=== PATIENT | male | born 2005 | race Two or more races ===

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

== ENCOUNTER 2023-07-07 13:11 | Emergency (ER) | payer MEDICAID, SELFPAY ==
[2023-07-07] VITALS (38 sets, daily range): BP systolic 105–159; BP diastolic 56–87; PULSE 55; RESP 16–17; TEMP 36.6; O2SAT 93–100; BMI 24.0
--- NOTE | 2023-07-07 13:43 | ED.ABDPAIN1 ---
HPI - Abdominal Pain General Chief Complaint: Abdominal Pain Stated Complaint: ABDOMINAL PAIN Time Seen by Provider: 07/07/23 13:21 Source: patient and family Mode of arrival: walk-in History of Present Illness HPI narrative: 17-year-old male presents to the emergency department with father with complaint of abdominal pain. Onset this past Thursday. Father states onset after eating greasy pizza father states he has had problems with abdominal discomfort in the past. Recently, had [place] food with noodles that cause some discomfort. Has had associated nausea and vomiting. Denies any fevers, diarrhea, prior abdominal problems/surgeries. Quality:? hurts Severity:?moderate Timing:?As above, currently denies any abdominal pain Context: Normal setting and activity? Modifying factors:?None Associated symptoms: As above Related Data Home Medications Medication Instructions Recorded Confirmed cholecalciferol (vitamin D3) 25 50 mcg PO DAILY 12/02/22 12/02/22 mcg (1,000 unit) capsule diazepam 20 mg/2 spray (10 mg/0.1 20 mg intranasal DAILY PRN seizures 12/02/22 12/02/22 mL x 2) nasal spray (Valtoco) divalproex 500 mg tablet,delayed 1,000 mg PO Q12H 12/02/22 12/02/22 release multivitamin-iron 9 mg-folic acid 1 tab PO DAILY 12/02/22 12/02/22 400 mcg-calcium and minerals tablet (Therapeutic-M) topiramate 50 mg capsule 50 mg PO DAILY 12/02/22 12/02/22 sprinkle,extended release 24 hr Previous Rx's Medication Instructions Recorded cephalexin 500 mg capsule 500 mg PO TID 7 days #21 caps 12/02/22 Allergies Allergy/AdvReac Type Severity Reaction Status Date / Time BEES AdvReac Severe Uncoded 12/02/22 16:33 Review of Systems ROS Narrative CONST: Denies any fever, chills HENT: Denies any congestion, sore throat RESP: Denies any cough, shortness of breath CV: Denies any chest pain, peripheral edema GI: +abd pain, n/v.? Denies any diarrhea : Denies any flank pain, dysuria MS: Denies any back pain, myalgias SKIN: Denies any color change, rash NEURO: Denies numbness, weakness PSYCHIATRIC: Denies confusion, agitation Exam Narrative Exam Narrative: Vital signs reviewed Nurses notes noted CONST: Nontoxic, well appearing, well nourished, in no distress.? No diaphoresis.?? HENT: normocephalic, atraumatic, moist mucous membrane, no abnormalities of the nose noted, hearing normal EYES: normal appearing conjunctiva, no apparent discharge bilat NECK: normal appearance CV: normal rate, regular rhythm, no murmur RESP: normal effort. Lung sounds clear and equal bilat.? No wheezes, rales, rhonchi GI: normal bowel sounds, soft, no distension, nontender : no CVA tenderness MS: no edema, tenderness SKIN: no pallor NEURO: A&Ox 3, no focal findings PSYCH: normal mood, affect. Not verbally communicative Constitutional Vital Signs, click to edit/add: Last Vital Signs Temp 97.8 F 07/07/23 13:16 Pulse 55 L 07/07/23 17:06 Resp 16 07/07/23 17:06 BP 126/70 07/07/23 17:06 Pulse Ox 99 07/07/23 17:06 O2 Del Method Room Air 07/07/23 17:06 Course Reevaluation(s) Reevaluation #1: Family and patient notified of plan to transfer to [facility] for further treatment, evaluation. Time: 16:59 Reevaluation #2: Through magistrate assistant #[id number], discussed with mother results, plan, disposition. Patient is now a little nauseous, antiemetics ordered. Reassured mother. Mother currently comfortable with current situation that he is waiting for bed. She is going to briefly go home to obtain his outpatient medicines. Patient with history of epilepsy and concern raised about missing any doses of this. Time: 19:50 Consultations Consultation #1: Patient discussed with Dr. Méndez, urology at the [facility] who will accept patient in transfer. Time: 16:30 Vital Signs Vital signs: Vital Signs Temperature 97.8 F 07/07/23 13:16 Pulse Rate 55 L 07/07/23 13:16 Respiratory Rate 17 07/07/23 13:16 Blood Pressure 116/62 07/07/23 13:16 Pulse Oximetry 100 07/07/23 13:16 Oxygen Delivery Method Room Air 07/07/23 13:16 Temperature 97.8 F 07/07/23 13:16 Pulse Rate 55 L 07/07/23 17:06 Respiratory Rate 16 07/07/23 17:06 Blood Pressure 126/70 07/07/23 17:06 Pulse Oximetry 99 07/07/23 17:06 Oxygen Delivery Method Room Air 07/07/23 17:06 MDM - Abdominal Pain MDM Narrative Medical decision making narrative: This is a 17-year-old male presents to the emergency department with his father with report of abdominal pain past Thursday. Has had some nausea and vomiting. Father thought it might be food related. Patient with chronic history of encephalopathy, epilepsy. On arrival, afebrile, vital signs are stable. On exam, nontoxic, well-appearing patient in no distress. Heart regular rate and rhythm. Lung sounds are clear and equal bilaterally. Abdomen is soft without tenderness. Labs concerning for JONES with BUN of 28, creatinine 3.68. No leukocytosis, anemia. He has mild thrombocytopenia at 108. No electrolyte imbalance. LFTs are a little elevated with AST of 161, ALT 83. Urinalysis has 5?[address] imaging, per radiologist reveals obstructing calculus proximal right ureter. Obstructing calculus left UPJ. Patient did develop some discomfort during ED course, as well as, nausea for which she was treated with Toradol and Zofran. He was administered IV normal saline, first 1 L bolus followed by infusion at 125 mL/h. He otherwise remained stable. Disposition ? The patient was transferred to [facility]. Dr. Méndez accepting. Condition stable Condition at time of disposition: stable PLEASE NOTE: Portions of the medical record may have been produced using electronic licensed dispensing optician and may contain errors with respect to translation of words which may not have been identified prior to finalization of the chart. Medical Records Attestation: I reviewed the patient's medical records. Lab Data Attestation: I reviewed the patient's lab results. Labs: Lab Results 07/07/23 07/07/23 Range/Units 13:50 14:19 WBC 8.1 (4.0-11.0) 10^3/uL RBC 4.61 L (4.70-6.10) 10^6/uL Hgb 14.5 (14.0-18.0) g/dL Hct 43.8 (42.0-54.0) % MCV 95.0 H (80.0-94.0) fL MCH 31.5 (25.9-34.0) pg MCHC 33.1 (29.9-35.2) g/dL RDW 12.7 (11.0-15.0) % Plt Count 108 L (150-450) 10^3/uL MPV 10.8 (9.5-13.5) fL Neut % (Auto) 65.2 (43.0-75.0) % Lymph % (Auto) 19.2 L (20.5-60.0) % [place] % (Auto) 15.0 H (1.7-12.0) % Eos % (Auto) 0.1 L (0.9-7.0) % Baso % (Auto) 0.1 L (0.2-2.0) % Neut # (Auto) 5.3 (1.4-6.5) 10^3/uL Lymph # (Auto) 1.6 (1.2-3.8) 10^3/uL [place] # (Auto) 1.2 H (0.3-0.8) 10^3/uL Eos # (Auto) 0.0 (0.0-0.7) 10^3/uL Baso # (Auto) 0.0 (0.0-0.1) 10^3/uL Abs Immat Gran (auto) 0.03 (0.00-0.03) 10^3/uL Imm/Tot Granulo (auto) 0.4 (0.0-0.5) % Sodium 140 (136-145) mmol/L Potassium 3.6 (3.5-5.1) mmol/L Chloride 108 H (98-107) mmol/L Carbon Dioxide 21.1 (21.0-32.0) mmol/L Anion Gap 14.5 BUN 20.0 H (6.4-19.3) mg/dL Creatinine 3.68 H (0.70-1.30) mg/dL Est GFR ( Amer) 26 L (>=60) Est GFR (Non-Af Amer) 21 L (>=60) BUN/Creatinine Ratio 5.4 Glucose 84 (74-106) mg/dL Calcium 8.4 L (8.5-10.1) mg/dL Total Bilirubin 0.4 (0.2-1.0) mg/dL AST 161 H (15-37) U/L ALT 83 H (16-63) U/L Alkaline Phosphatase 62 (46-116) U/L Total Protein 7.1 (6.4-8.2) g/dL Albumin 3.4 (3.4-5.0) g/dL Globulin 3.7 g/dL Albumin/Globulin Ratio 0.9 Lipase 58.0 (16.0-77.0) U/L Urine Color Lt. yellow (YELLOW) Urine Clarity Clear (CLEAR) Urine pH 6.5 (5.0-9.0) Ur Specific [place] <=1.005 A (1.005-1.025) Urine Protein Negative (NEG/TRACE) mg/dL Urine Glucose (UA) Negative (NEGATIVE) mg/dL Urine Ketones Negative (NEGATIVE) mg/dL Urine Occult Blood Large A (NEGATIVE) Urine Nitrite Negative (NEGATIVE) Urine Bilirubin Negative (NEGATIVE) Urine Urobilinogen 0.2 (0.2-1.0) EU/dL Ur Leukocyte Esterase Trace A (NEGATIVE) Urine RBC 5-10 A (0-2) #/HPF Urine WBC 0-2 A (NONE SEEN) #/HPF Ur Squamous Epith Cells Rare (NONE/RARE) #/LPF Urine Crystals None seen (None Seen) #/HPF Urine Bacteria Trace A (NONE SEEN) #/HPF Urine Casts None seen (NONE SEEN) #/LPF Urine Mucus Trace A (NONE SEEN) Imaging Data CT scan - abdomen: Attestation: I have reviewed the pertinent imaging results. Radiologist's impression: ITS Impressions Abdomen/Pelvis CT 07/07/23 14:21 IMPRESSION: CT abdomen and CT pelvis studies demonstrate bilateral obstructive uropathy. Obstructing calculus in the proximal right ureter just distal to the ureteropelvic junction causing early and/or moderate obstructive uropathy on the right. Obstructing calculus at the left ureteropelvic junction level causing early and/or mild to moderate obstructive uropathy on the left. There are also bilateral nonobstructive renal calculi. Electronically authenticated by: JES GALVAN Date: 07/07/2023 15:13 Discharge Plan Discharge Chief Complaint: Abdominal Pain Clinical Impression: JONES (acute kidney injury), Acute bilateral obstructive uropathy, Ureterolithiasis Patient Disposition: [facility] Time of Disposition Decision: 16:30 Discharge Location: [facility] Condition: Good Mode of Transportation: EMS
[2023-07-07] MEDS: 0.9 % SODIUM CHLORIDE 1,000 ML 999 ML IV (13:51)
[2023-07-07 13:56] LABS: Basophils Percent Auto 0.1 % (0.2-2.0); Eosinophils Percent Auto 0.1 % (0.9-7.0); Hematocrit 43.8 % (42.0-54.0); Hemoglobin 14.5 g/dL (14.0-18.0); Immature Granulocytes Abs Auto 0.03 10^3/uL (0.00-0.03); Immature Granulocytes Pct Auto 0.4 % (0.0-0.5); Lymphocytes Absolute Auto 1.6 10^3/uL (1.2-3.8); Lymphocytes Percent Auto 19.2 % (20.5-60.0); Mean Corpuscular HGB Conc 33.1 g/dL (29.9-35.2); Mean Corpuscular Hemoglobin 31.5 pg (25.9-34.0); Mean Platelet Volume 10.8 fL (9.5-13.5); Monocytes Absolute Auto 1.2 10^3/uL (0.3-0.8); Neutrophils Absolute Auto 5.3 10^3/uL (1.4-6.5); Neutrophils Percent Auto 65.2 % (43.0-75.0); Platelet Count 108 10^3/uL (150-450); Red Blood Count 4.61 10^6/uL (4.70-6.10); Red Cell Distribution Width 12.7 % (11.0-15.0); White Blood Count 8.1 10^3/uL (4.0-11.0)
[2023-07-07 14:10] LABS: Alanine Aminotransferase 83 U/L (16-63); Albumin Globulin Ratio 0.9; Albumin Level 3.4 g/dL (3.4-5.0); Alkaline Phosphatase 62 U/L (46-116); Anion Gap 14.5; Aspartate Amino Transferase 161 U/L (15-37); BUN Creatinine Ratio 5.4; Bilirubin Total 0.4 mg/dL (0.2-1.0); Calcium 8.4 mg/dL (8.5-10.1); Carbon Dioxide 21.1 mmol/L (21.0-32.0); Chloride 108 mmol/L (98-107); Estimated GFR (African America 26 (>=60); Estimated GFR (Non-African Ame 21 (>=60); Globulin 3.7 g/dL; Glucose 84 mg/dL (74-106); Potassium 3.6 mmol/L (3.5-5.1); Sodium 140 mmol/L (136-145); Total Protein 7.1 g/dL (6.4-8.2)
--- NOTE | 2023-07-07 14:21 | CT_ITS ---
The [address] [address] Patient Name: SARA GREGG MRN: [id number] date: 2005 Sex: M Assigned Patient Location: ER Current Patient Location: ER Accession/Order Number: [id number] Exam Date: 07/07/2023 14:35 Report Date: 07/07/2023 15:13 At the request of: BRYON ASHTON Procedure: CT abdomen pelvis wo con EXAM: CT abdomen pelvis wo con HISTORY: abd pain COMPARISON: CT abdomen and CT pelvis studies dated 12/02/2022. TECHNIQUE: CT abdomen and CT pelvis studies were performed without the use of intravenous contrast. Multiple axial images were obtained. Reformatted coronal and sagittal images were obtained and reviewed. FINDINGS: Abdomen: Visualized lower lung pryor appear grossly unremarkable. Views of the liver and spleen fail to demonstrate evidence of focal mass in either organ. Gallbladder, pancreas and adrenal glands appear grossly unremarkable. Stomach appears grossly unremarkable. Bowel loops appear grossly unremarkable. Visualized vascular structures appear grossly intact. No evidence of adenopathy in the retroperitoneum. There is bilateral obstructive uropathy present. Views of the right kidney demonstrate an approximately 3 mm nonobstructive calculus in the inferior right kidney. There may be a tiny faint 1 mm nonobstructive calculus in the superior right kidney. There is [id number] right hydronephrosis with moderate proximal right hydroureter just distal to the ureteropelvic junction to the level of an approximately 5 x 5 mm calculus causing early and/or moderate obstructive uropathy on the right. Calculus noted on series 3 axial image 60 and series 5 coronal image 43. Views of the left kidney demonstrate approximately 3 closely opposed calculi inferiorly which are nonobstructive, aggregate size measures approximately 8 x 5 mm. A few other tiny faint 1 mm nonobstructive calculi suggested. There is [id number] left hydronephrosis to the level of the ureteropelvic junction where there is an approximately 5 x 5 mm calculus causing early and/or mild to moderate obstructive uropathy on the left. Obstructing calculus noted on series 3 axial image 50 and series 5 coronal image 48. No obvious mass in either kidney. Mild perirenal fat stranding bilaterally. Pelvis: No evidence of distal ureteral or bladder calculus. Bladder is contracted and not well identified. No convincing evidence of bladder mass. Wall thickening of bladder likely due to its contracted state. Prostate gland is grossly within normal limits for size.] Perirectal fat planes appear grossly intact. Bowel loops appear grossly unremarkable. Visualized vascular structures appear grossly intact. The appendix is visualized and appears grossly unremarkable. Slight convexity of the lumbar spine to the left. CT/CT abdomen pelvis wo con IMPRESSION: CT abdomen and CT pelvis studies demonstrate bilateral obstructive uropathy. Obstructing calculus in the proximal right ureter just distal to the ureteropelvic junction causing early and/or moderate obstructive uropathy on the right. Obstructing calculus at the left ureteropelvic junction level causing early and/or mild to moderate obstructive uropathy on the left. There are also bilateral nonobstructive renal calculi. Electronically authenticated by: JES GALVAN Date: 07/07/2023 15:13
[2023-07-07 14:28] LABS: Bilirubin Urine NEGATIVE (NEGATIVE); Blood Urine LARGE (NEGATIVE); Clarity Urine CLEAR (CLEAR); Color Urine LT. YELLOW (YELLOW); Glucose Urine UA NEGATIVE (NEGATIVE); Ketones Urine NEGATIVE (NEGATIVE); Leukocyte Esterase Urine TRACE (NEGATIVE); Nitrite Urine NEGATIVE (NEGATIVE); Protein Urine NEGATIVE (NEG/TRACE); Specific Gravity Urine <=1.005 (1.005-1.025); Urobilinogen Urine 0.2 EU/dL (0.2-1.0); pH Urine 6.5 (5.0-9.0)
[2023-07-07 14:39] LABS: Bacteria Urine TRACE #/HPF (NONE SEEN); WBC Urine 0-2 #/HPF (NONE SEEN)
[2023-07-07 14:40] LABS: Cast Seen? NONE SEEN #/LPF (NONE SEEN); Crystals Seen? None Seen #/HPF (None Seen); Mucus Urine TRACE (NONE SEEN); Squamous Epithelial Cell Urine RARE #/LPF (NONE/RARE)
--- NOTE | 2023-07-07 15:44 | PC.NURSE ---
Patient denies needs at this time. resting in bed. warm blanket given.. awaiting plan from [facility]
--- NOTE | 2023-07-07 16:59 | PC.NURSE ---
Mother at bedside and demanding to know when he will go to [place]. Mother states, he has been in pain for 3 days, he needs to be there now. why are we waiting. Mother informed that patient has been accepted by physician at [facility] but that we are waiting for a bed assignment and that this is out of our control. Mother continues to demand patient be transfered now. Mother also demanding to speak to physician and states she is going to call patient's doctor at [facility] to make them take him quicker. physician notified of mother wanting to speak to him. Patient resting in bed in no distress, watching television
--- NOTE | 2023-07-07 18:31 | PC.NURSE ---
patient requesting pain medication at this time. patient rating his lower abdominal pain a 10/10. physician notified. mother again stating, 'why aren't we being transferred to the [facility]? I see they accepted him in [facility], why aren't we leaving. mother informed that patient will be going to [facility], that patient has been accepted, but has not been assigned a bed yet. guidance secretary called half an hour ago and no update on room at that time.
[2023-07-07] MEDS: KETOROLAC TROMETHAMINE 30 MG/ML VIAL 15 MG IVP (19:06)
[2023-07-07] MEDS: ONDANSETRON PF 4 MG/2 ML VIAL IV (20:06)
[2023-07-07] MEDS: 0.9 % SODIUM CHLORIDE 500 ML 125 ML IV (20:07)
== END 2023-07-07 22:35 | disposition short-term general hospital (02) ==
PROVIDERS: Physician Assistant; Emergency Provider Student in an Organized Health Care Education/Training Program; PCP Family Medicine
DX: N17.9 Acute kidney failure, unspecified (principal); N13.9 Obstructive and reflux uropathy, unspecified; N20.1 Calculus of ureter; Z79.899 Other long term (current) drug therapy; G40.909 Epilepsy, unspecified, not intractable, without status epilepticus
CPT/HCPCS: 36415; 74176; 80053; 81001; 83690; 85025; 96361; 96374; 96375; 99285

== ENCOUNTER 2023-11-21 09:45 | Outpatient (OUT) | payer MEDICAID, SELFPAY ==
--- OUTSIDE RECORDS SUMMARY | 2023-11-21 09:49 | XMS_ITS | CCD ---
Author Organization [facility] Care Team Providers Care Char Belt Operator Name Role Phone Melly Ely Primary Care Provider Jitendra Ely Unavailable Steve Elyma Unavailable Solis Melly Unavailable Rumschlag, Amanda Primary Care Provider Rumschlag, Amanda Primary Care Provider Rumschlag DO, Amanda Primary Care Provider SELF Referring Unavailable KENTRELL ABDULLAHI Attending Unavailable RUMSCHLAG, AMANDA Primary Care Unavailable Rumschlag DO, Amanda Primary Care Provider Zohaib Mccormick Unavailable Unavailable KEREN VAZ Attending Unavailable RUMSCHLAG, AMANDA Primary Care Unavailable MICHAEL ROPER Attending Unavailable RUMSCHLAG, AMANDA Primary Care Unavailable RUMSCHLAG, AMANDA Primary Care Unavailable KENTRELL ABDULLAHI Attending Unavailable FANNYTHJAMES AQUINO Attending Unavaila ble MICHAEL ROPER Referring Unavailable RUMSCHLAG, AAMNDA Primary Care Unavailable RUMSCHLAG, AMANDA Primary Care Unavailable MICHAEL ROPER Attending Unavailable RUMSCHLAG, AMANDA Primary Care Unavailable RUMSCHLAG, AMANDA Primary Care Unavailable MANRIQUE-SUMNERЮЛИЯ Referring Unavaila ble RUMSCHLAG, AMANDA Primary Care Unavailable MANRIQUE-SUMNER ЮЛИЯ Referring Unavaila ble RUMSCHLAG, AMANDA Primary Care Unavailable PARAS BOWENS Attending Unavailable RUMSCHLAG, AMANDA Primary Care Unavailable RUMSCHLAG, [facility] Primary Care Unavailable MELIZA SMITH, KENTRELL Referring Unavailable MELIZA SMITH, KENTRELL Attending Unavailable RUMSCHLAG, AMANDA Primary Care Unavailable RUMSCHLAG, [facility] Primary Care Unavailable SUNTHAROS, PATCHARAPONG Referring Unavaila ble SUNTHAROS, PATCHARAPONG Referring Unavaila ble RUMSCHLAG, AMANDA Primary Care Unavailable RUMSCHLAG, AMANDA Primary Care Unavailable MELIZA SMITH, KENTRELL Admitting Unavailable MELIZA SMITH, KENTRELL Attending Unavailable RUMSCHLAG, AMANDA Primary Care Unavailable MANRIQUE-SUMNER, ЮЛИЯ Attending Unavaila ble MANRIQUE-SUMNER, ЮЛИЯ Admitting Unavaila ble RUMSCHLAG, AMANDA K Referring Unavailable SERVICES, [facility] RUMSCHLAG, AMANDA K Referring Unavailable SERVICES, [facility] RUMSCHLAG, AMANDA K Referring Unavailable SERVICES, [facility] RUMSCHLAG, AMANDA K Referring Unavailable SERVICES, [facility] SONIDO, CIRA Referring Unavailable SERVICES, [facility] SONIDO, CIRA Referring Unavailable SERVICES, [facility] RUMSCHLAG, AMANDA K Referring Unavailable SERVICES, [facility] Allergies Allergy Classification Reported Allergen(s) Allergy Type Date of Onset Reaction(s) Facility (20 sources) Bees; Translations: [BEES] Allergy to substance 01-08-2010 Anaphylaxis [facility] (1 source) HYMENOPTERA ALLERGENIC EXTRACT; Translations: [HYMENOPTERA ALLERGENIC EXTRACT] Drug Allergy 12-22-2016 [facility] Medications Current Medications Medication Drug Class(es) Dates Sig (Normalized) Sig (Original) acetaminophen 500 mg oral tablet (6 sources) Start: 11-06-2023 take 1 tablet by mouth every eight hours as needed acetaminophen (TYLENOL EXTRA STRENGTH) 500 mg tablet Take 1 tablet by mouth every 8 hours as needed for pain. 6 tablet 0 11/06/2023 Active cenobamate 100 mg oral tablet (20 sources) Start: 11-29-2021 End: 05-28-2022 take 1 tablet by mouth once daily at bedtime cenobamate (XCOPRI) 100 mg tablet Indications: Seizure (HCC) Take 1 tablet by mouth daily at bedtime for 180 days. 90 tablet 1 11/29/2021 05/28/2022 Suspended Start: 11-07-2021 End: 05-06-2022 take 1 tablet by mouth once daily at bedtime cenobamate (XCOPRI) 50 mg tablet Indications: Seizure (HCC) Take 1 tablet by mouth daily at bedtime for 180 days. Do not start before November 07, 2021. 90 tablet 1 11/07/2021 11/29/2021 Discontinued Start: 09-18-2021 End: 03-17-2022 take 2 tablets by mouth once daily cenobamate (XCOPRI) 50 mg tablet Indications: Partial epilepsy with impairment of consciousness (HCC) Take 2 tablets by mouth once daily for 180 days. 30 tablet 0 09/18/2021 11/04/2021 Discontinued Start: 04-29-2021 End: 09-18-2021 cenobamate (XCOPRI) 50 mg ta blet Indications: Partial epilepsy with impairment of consciousness (HCC) Take 1 tablet by mouth once daily for 180 days. Do not start before April 29, 2021. 30 tablet 5 04/29/2021 09/18/2021 Discontinued (Adjust Sig - Block E-Cancel) Comment on above: Take 1 tablet by ronel th once daily for 180 days. Do not start before April 29, 2021. Take 2 tablets by mo uth once daily for 180 days. Take 1 tablet by ronel th daily at bedtime for 180 days. Do not start before November 07, 2021. Take 1 tablet by ronel th daily at bedtime for 180 days. cephalexin 250 mg oral capsule (1 source) Cephalosporin Antibacterial Start: 07-09-19 24 End: 07-15-19 24 take 1 capsule by mouth three times daily cephALEXin (KEFLEX) 250 mg capsule Take 1 capsule by mouth three times a day for 5 days. 15 capsule 0 07/09/2023 07/15/2023 Active Comment on above: Take 1 capsule by mo uth three times a day for 5 days. cholecalciferol 0.025 mg oral capsule (20 sources) Vitamin D Start: 02-27-20 End: 06-26-19 25 take 2 capsules by mouth once daily Cholecalciferol, Vitamin D3, (VITAMIN D) 25 mcg (1,000 unit) cap Indications: Generalized epilepsy (HCC) Take 2 capsules by mouth once daily. 60 capsule 11 06/26/2023 06/25/2024 Active Start: 11-04-2021 End: 02-26-2022 take 1 capsule by mouth every week cholecalciferol, Vitamin D3, (VITAMIN D3) 1,250 mcg (50,000 unit) cap capsule Indications: Encephalopathy , Focal epilepsy with impairment of consciousness, intractable (HCC) Take 1 capsule by mouth one time a week. 6 capsule 0 12/10/2021 02/26/2022 Discontinued Start: 10-03-2021 End: 11-01-2021 take 1 capsule by mouth every week cholecalciferol, Vitamin D3, (VITAMIN D3) 1,250 mcg (50,000 unit) cap capsule Indications: Encephalopathy , Focal epilepsy with impairment of consciousness, intractable (HCC) Take 1 capsule by mouth one time a week. 6 capsule 0 10/03/2021 11/01/2021 Discontinued Start: 04-01-2021 End: 11-04-2021 take 2 tablets by mouth once daily cholecalciferol (VITAMIN D3) 1,000 unit tab tablet Indications: Vitamin D deficiency Take 2 tablets by mouth once daily. 30 tablet 11 04/01/2021 11/04/2021 Discontinued Comment on above: Take 2 tablets by mo uth once daily. Take 1 capsule by mo uth one time a week. Take 2 capsules by m outh once daily. 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 2 Each 2 12/17/2020 Active Comment on above: Use 2 Sprays in the nose as needed (For seziures > 3 minutes or 3 seizures in 30 minutes.). Use 2 Sprays in the nose as needed (For seziures longer than 3 minutes or 3 seizures in 30 minutes.). Use 1 [place] in each nostril as needed for seizures lasting longer than 3 minutes (For seziures > 3 minutes or 3 seizures in 30 minutes.). docusate sodium 100 mg oral capsule (20 sources) Start: 07-10-2023 take 1 capsule by mouth twice daily docusate sodium (COLACE) 100 mg capsule Take 1 capsule by mouth two times a day. 30 capsule 2 07/10/2023 Active Start: 02-17-2018 take 1 capsule by [facility] twice daily docusate sodium (COLACE) 100 mg capsule Take 1 capsule by mouth twice daily. 30 capsule 0 02/17/2018 Suspended Comment on above: Take 1 capsule by [facility] twice daily. Take 1 capsule by [facility] two times a day. guanFACINE 1 mg oral tablet (20 sources) Central alpha-2 Adrenergic Agonist Start: 09-18-2023 take 1 tablet by mouth once daily at bedtime guanFACINE (TENEX) 1 mg tablet Take 1 tablet by mouth daily at bedtime. 30 tablet 2 09/18/2023 Active Start: 03-16-2023 take 1 tablet by [place] once daily guanFACINE (TENEX) 1 mg tablet Take 1 tablet by mouth once daily. 0 03/16/2023 Active Start: 06-27-2022 End: 09-25-2022 take 1 tablet by mouth once daily guanFACINE (INTUNIV) 1 mg ER 24 hr tablet(s) Indications: Attention deficit hyperactivity disorder (ADHD), predominantly inattentive type Take 1 tablet by mouth once daily. 30 tablet 2 06/27/2022 09/25/2022 Active Start: 12-02-2021 End: 04-27-2022 take 1 tablet by mouth once daily guanFACINE (INTUNIV) 1 mg ER 24 hr tablet(s) Indications: Attention deficit hyperactivity disorder (ADHD), predominantly inattentive type Take 1 tablet by mouth once daily. 30 tablet 2 01/27/2022 04/27/2022 Start: 08-27-2021 End: 11-04-2021 take 1 tablet by mouth once daily guanFACINE (INTUNIV) 1 mg ER 24 hr tablet(s) Indications: Attention deficit hyperactivity disorder (ADHD), predominantly inattentive type Take 1 tablet by mouth once daily. 30 tablet 2 08/27/2021 Active Comment on above: Take 1 tablet by ronel th once daily. TAKE 1 TABLET BY RONEL TH EVERY DAY ibuprofen 200 mg oral tablet (20 sources) Nonsteroidal Anti-inflammatory Drug Start: 2018 take 2 tablets by mouth every six hours as needed ibuprofen (MOTRIN) 200 mg tablet Take 2 tablets by mouth every 6 hours as needed for Pain or Fever. 0 06/09/2018 Active Comment on above: Take 2 tablets by mo ut every 6 hours as needed for Pain or Fever. iv contrast (will be provided with radiology test) (2 sources) Start: 2021 End: 2021 inject 1 dose intravenously once iv contrast (will be provided with radiology test) MRI Brain Inject, intravenously, once for 1 dose.No IV access, insert saline lock prior to beginning of sedation, infusion, injection of imaging exam.Discontinue saline lock post exam. If Pt. has a central line or IVAD, may access for administration according to line specific nursing protocol.Once exam is complete flush line and de-access according to line specific nursing protocol in the MR contrast administration guidelines link 1 Each 0 11/04/2021 11/05/2021 Active Comment on above: MRI Brain Inject, in travenously, once for 1 dose.No IV access, insert saline lock prior to beginning of sedation, infusion, injection of imaging exam.Discontinue saline lock post exam. If Pt. has a central line or IVAD, may access for administration according to line specific nursing protocol.Once exam is complete flush line and de-access according to line specific nursing protocol in the MR contrast administration guidelines link OLANZapine 5 mg disintegrating oral tablet (20 sources) Atypical Antipsychotic Start: 2023 OLANZapine orally disintegrating (ZYPREXA ZYDIS) 5 mg disintegrating tablet Take 1 tablet by mouth as needed. 30 tablet 2 09/18/2023 Active Start: 06-27-2022 OLANZapine ora lly disintegrating (ZYPREXA ZYDIS) 5 mg disintegrating tablet Take 1 tablet by mouth as needed. 30 tablet 2 06/27/2022 Active Start: 11-04-2021 End: 02-26-2022 take 1 tablet by mouth twice daily as needed OLANZapine orally disintegrating (ZYPREXA ZYDIS) 5 mg disintegrating tablet Indications: DMDD (disruptive mood dysregulation disorder) ([facility]) Take 1 tablet by mouth twice daily as needed (agitation). 20 tablet 2 11/04/2021 02/26/2022 Discontinued (Course of therapy completed) Comment on above: Take 1 tablet by ronel th twice daily as needed (agitation). Take 1 tablet by ronel th as needed. perampanel 8 mg oral tablet (20 sources) Noncompetitive AMPA Glutamate Receptor Antagonist Start: 2023 End: 2024 take 1 tablet by mouth once daily at bedtime perampanel (FYCOMPA) 8 mg tab(s) Indications: Anti-NMDAR encephalitis , Refractory epilepsy (HCC) Take 1 tablet by mouth daily at bedtime for 180 days. 30 tablet 5 09/10/2023 03/08/2024 Active Comment on above: Take 1 tablet by ronel th daily at bedtime for 90 days. Take 1 tablet by ronel th daily at bedtime. sennosides, half-way 8.6 mg oral tablet (20 sources) Start: 2020 End: 2021 take 1 tablet by mouth every twelve hours as needed for constipation and constipation senna (SENOKOT) 8.6 mg tab Indications: Constipation, unspecified constipation type Take 1 tablet by mouth twice daily as needed. 30 tablet 11 12/17/2020 12/17/2021 Suspended Comment on above: Take 1 tablet by ronel twice daily as needed. tamsulosin hydrochloride 0.4 mg oral capsule (16 sources) alpha-Adrenergic Jez Start: 2023 End: 2023 take 0.4 mg by mouth every twenty-four hours as needed tamsulosin (FLOMAX) 0.4 mg Indications: Stent discomfort Take 1 capsule by mouth at bedtime as needed for up to 14 days. Take for stent discomfort 14 capsule 0 07/09/2023 Active Comment on above: Take 1 capsule by mo [facility] at bedtime as needed for up to 14 days. 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 360 tablet 0 03/26/2022 03/26/2023 Active Comment on above: Take 1 tablet by ronel once daily. THERAPEUTIC-M 9 mg iron-400 mcg tablet (20 sources) Start: 2023 End: 2024 take 1 tablet by mouth once daily THERAPEUTIC-M 9 mg iron-400 mcg tablet Take 1 tablet by mouth once daily. 30 tablet 11 06/26/2023 06/25/2024 Suspended Start: 06-26-2023 End: 06-25-2024 take 1 tablet by mouth once daily THERAPEUTIC-M 9 mg iron-400 mcg tablet Take 1 tablet by mouth once daily. 30 tablet 11 06/26/2023 06/25/2024 Active Start: 03-06-2023 End: 06-26-2023 take 1 tablet by mouth once daily THERAPEUTIC-M 9 mg iron-400 mcg tablet Take 1 tablet by mouth once daily. 90 tablet 3 03/06/2023 06/26/2023 Discontinued Start: 03-06-2023 End: 03-05-2024 take 1 tablet by mouth once daily THERAPEUTIC-M 9 mg iron-400 mcg tablet Take 1 tablet by mouth once daily. 90 tablet 3 03/06/2023 03/05/2024 Active Start: 11-07-2022 End: 11-07-2023 take 1 tablet by mouth once daily THERAPEUTIC-M 9 mg iron-400 mcg tablet Take 1 tablet by mouth once daily. 90 tablet 3 11/07/2022 11/07/2023 Active Start: 03-26-2022 End: 11-07-2022 take 1 tablet by mouth once daily THERAPEUTIC-M 9 mg iron-400 mcg tablet Take 1 tablet by mouth once daily. 0 03/26/2022 11/07/2022 Discontinued Start: 03-26-2022 take 1 tablet by ronel th once daily THERAPEUTIC-M 9 mg iron-400 mcg tablet Take 1 tablet by mouth once daily. 0 03/26/2022 Active Comment on above: Take 1 tablet by ronel th once daily. 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 daily dose is 850mg 360 capsule 3 03/06/2023 03/05/2024 Suspended Comment on above: Take 4 capsules by m outh daily at bedtime. Take 5 capsules by m outh daily at bedtime. Take 4 capsules by m outh daily at bedtime. daily dose is 850mg Take 1 capsule by mo uth once daily. Take 1 capsule by mo uth daily at bedtime. Take 8 capsules by m outh daily at bedtime. Take with one 50 mg capsule = total dose 850 mg at bedtime divalproex sodium 250 mg delayed release oral tablet (20 sources) Mood Stabilizer, Anti-epileptic Agent Start: 06-26-2023 End: 06-25-2024 take 1 tablet by mouth once daily in the evening divalproex DR (DEPAKOTE) 250 mg EC tablet Take 1 tablet by mouth daily at 6 pm. 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 daily dose 1000mg in the morning and 1250mg at night 120 tablet 06/26/2023 06/25/2024 Active Comment on above: Take 2 tablets by mo uth twice daily. Take 2 tablets by mo uth two times a day. Take 250 mg by mouth daily at 6 pm. Take 1 tablet by ronel th daily at 6 pm. daily dose 1000mg in the morning and 1250mg at night Take 2 tablets by mo uth two times a day. daily dose 1000mg in the morning and 1250mg at night Completed/Discontinued Medications Medication Drug Class(es) Dates Sig (Normalized) Sig (Original) cenobamate (XCOPRI TITRATION PACK) 12.5 mg (14)- 25 mg (14) tablets in a dose pack (7 sources) Start: 10-01-2021 End: 10-29-2021 take 1 tablet by mouth once daily, then take 2 tablets by mouth once daily cenobamate (XCOPRI TITRATION PACK) 12.5 mg (14)- 25 mg (14) tablets in a dose pack Indications: Localization-relate d epilepsy with complex partial seizures with intractable epilepsy (HCC) Take 12.5 mg by mouth once daily for 2 weeks, then take 25 mg by mouth once daily for 2 weeks. 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 28 tablet 0 10/01/2021 10/29/2021 Active Comment on above: Take 12.5 mg by mout h once daily for 2 weeks, then take 25 mg by mouth once daily for 2 weeks. FLUoxetine 20 mg oral capsule (20 sources) Serotonin Reuptake Inhibitor Start: 11-04-2021 End: 11-04-2021 take 1 capsule by mouth once daily FLUoxetine (PROZAC) 20 mg capsule Take 1 capsule by mouth once daily. 30 capsule 1 11/04/2021 Suspended Start: 08-27-2021 End: 11-04-2021 take 1 capsule by mouth once daily FLUoxetine (PROZAC) 10 mg capsule TAKE 1 CAPSULE BY MOUTH EVERY DAY 30 capsule 1 10/31/2021 11/04/2021 Discontinued Comment on above: Take 1 capsule by mo [facility] once daily. TAKE 1 CAPSULE BY MO [facility] EVERY DAY minocycline 100 mg oral capsule (3 sources) Tetracycline-cla ss Drug Start: 0 End: 2 take 1 capsule by mouth twice daily minocycline (MINOCIN, DYNACIN) 100 mg capsule Take 100 mg by mouth twice daily. 0 01/19/2020 09/19/2021 Discontinued Comment on above: Take 100 mg by mouth twice daily. 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 360 tablet 0 12/17/2020 12/17/2021 Active Comment on above: Take 1 tablet by ronel th once daily. 24 hr OXcarbazepine 300 mg extended release oral tablet (20 sources) Anti-epileptic Agent Start: 3 End: take 6 tablets by mouth once daily at bedtime OXcarbazepine ER (OXTELLAR XR) 300 mg tablet Indications: complex-partial epilepsy Take 6 tablets by mouth daily at bedtime. 180 tablet 5 05/06/2022 Active Start: 11-04-2021 End: 08-25-2022 take 7 tablets by mouth once daily at bedtime OXcarbazepine ER (OXTELLAR XR) 300 mg tablet Indications: complex-partial epilepsy Take 7 tablets by mouth daily at bedtime. 210 tablet 5 02/26/2022 05/06/2022 Discontinued Start: 09-21-2021 End: 11-04-2021 take 3 tablets by mouth once daily at bedtime OXcarbazepine ER (OXTELLAR XR) 600 mg tablet Indications: complex-partial epilepsy Take 3 tablets by mouth daily at bedtime. 90 tablet 5 09/21/2021 11/04/2021 Discontinued Start: 12-17-2020 End: 09-18-2021 take 3 tablets by mouth once daily at bedtime OXcarbazepine ER (OXTELLAR XR) 600 mg tablet Indications: complex-partial epilepsy Take 3 tablets by mouth daily at bedtime. 90 tablet 5 09/18/2021 Suspended Comment on above: Take 3 tablets by mo uth daily at bedtime. Take 7 tablets by mo uth daily at bedtime. Take 6 tablets by mo uth daily at bedtime. risperiDONE 1 mg oral tablet (6 sources) Atypical Antipsychotic Start: 12-02-2021 risperiDONE (RISPERDAL) 1 mg tablet Indications: Intermittent explosive disorder tome media pastilla por la noche por 3 rm, y despues aumente a 1 pastilla 30 tablet 0 12/02/2021 Suspended Comment on above: tome media pastilla por la noche por 3 rm, y despues aumente a 1 pastilla Problems Active Problems Problem Classification Problem Date Documented Date Episodic/Chronic Adjustment disorders (20 sources) Adjustment disorder with mixed anxiety and depressed mood; Translations: [Adjustment disorder with mixed anxiety and depressed mood] Onset: 02-08-2021 02-08-2021 Chronic Administrative/social admission (1 source) Patient encounter status; Translations: [Persons encountering health services in other specified circumstances] 11-12-2023 Episodic Anxiety disorders (1 source) Generalized anxiety disorder; Translations: [SILVA (generalized anxiety disorder)] Onset: 09-18-2023 Chronic Attention-deficit, conduct, and disruptive behavior disorders (20 sources) Attention deficit hyperactivity disorder, predominantly inattentive type; Translations: [Attention-deficit hyperactivity disorder, predominantly inattentive type] Onset: 02-08-2021 02-08-2021 Chronic Attention-deficit, conduct, and disruptive behavior disorders (1 source) Attention-deficit hyperactivity disorder, predominantly inattentive type; Translations: [ADHD (attention deficit hyperactivity disorder), inattentive type] Onset: 03-16-2023 Chronic Attention-deficit, conduct, and disruptive behavior disorders (20 sources) Problem behavior; Translations: [Other symptoms and signs involving appearance and behavior] 02-06-2020 Episodic Calculus of urinary tract (20 sources) Kidney stone; Translations: [Calculus of kidney] Onset: 07-08-2023 07-08-2023 Episodic Encephalitis (except that caused by tuberculosis or sexually transmitted disease) (20 sources) 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; Translations: [Other encephalitis and encephalomyelitis] Onset: 10-27-2005 Resolved: 09-20-2021 06-01-2018 Episodic Epilepsy; convulsions (20 sources) Generalized epilepsy; Translations: [Generalized idiopathic epilepsy and epileptic syndromes, not intractable, without status epilepticus] Onset: 03-23-2006 Resolved: 06-01-2018 02-06-2020 Chronic Impulse control disorders, NEC (20 sources) Intermittent explosive disorder; Translations: [Intermittent explosive disorder] Onset: 09-25-2014 06-01-2018 Chronic Mood disorders (1 source) Disruptive mood dysregulation disorder; Translations: [Disruptive mood dysregulation disorder] Chronic Nutritional deficiencies (20 sources) Malnutrition (calorie); Translations: [Moderate protein-calorie malnutrition] Onset: 12-18-2021 Resolved: 06-01-2018 12-18-2021 Chronic Other connective tissue disease (4 sources) Pain in left lower limb; Translations: [Pain in left leg] Episodic Other connective tissue disease (1 source) Pain in left finger(s); Translations: [Pain in left finger(s)] Onset: 11-16-2023 Episodic Other nervous system disorders (2 sources) Disorder of brain; Translations: [Encephalopathy, unspecified] Chronic Other nervous system disorders (2 sources) Demyelinating disease of central nervous system; Translations: [Demyelinating disease of central nervous system, unspecified] Chronic Other nervous system disorders (1 source) Finding of hand region; Translations: [Tremor, unspecified] 05-10-2023 Episodic Residual codes; unclassified (2 sources) Needs assistance with community resources; Translations: [Other specified health status] 11-11-2023 Episodic Past or Other Problems Problem Classification Problem Date Documented Da te Episodic/Chronic Abdominal pain (11 sources) Abdominal pain; Translations: [Unspecified abdominal pain] Onset: 2 Resolved: 8 02-08-2018 Episodic Complications of surgical procedures or medical care (11 sources) Complication of gastrostomy; Translations: [Gastrostomy complication, unspecified] Onset: 6 Resolved: 7 03-12-2007 Episodic Epilepsy; convulsions (20 sources) Neurological finding; Translations: [Unspecified convulsions] Onset: 0 02-06-2020 Episodic Esophageal disorders (11 sources) Gastroesophageal reflux disease; Translations: [Gastro-esophageal reflux disease without esophagitis] Onset: 7 Resolved: 7 03-12-2007 Chronic Genitourinary symptoms and ill-defined conditions (11 sources) Urinary incontinence; Translations: [Unspecified urinary incontinence] Resolved: 9 06-01-2018 Chronic Malaise and fatigue (16 sources) Physical deconditioning; Translations: [Other malaise] Onset: 9 Resolved: 2 06-02-2018 Episodic Other circulatory disease (11 sources) Low blood pressure; Translations: [Hypotension, unspecified] Resolved: 9 06-01-2018 Episodic Other gastrointestinal disorders (11 sources) Constipation; Translations: [Constipation, unspecified] Onset: 6 Resolved: 7 03-12-2007 Episodic Other hereditary and degenerative nervous system conditions (12 sources) Movement disorder; Translations: [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] Onset: 3 Resolved: 9 Chronic Other nervous system disorders (16 sources) Cerebral edema; Translations: [Cerebral edema] Onset: 9 Resolved: 2 06-02-2018 Chronic Other nervous system disorders (20 sources) H/O: encephalitis; Translations: [Personal history of infections of the central nervous system] Onset: 2 11-04-2021 Episodic Other nervous system disorders (1 source) Personal history of infections of the central nervous system; Translations: [History of encephalitis] Onset: 2 Episodic Other nutritional; endocrine; and metabolic disorders (20 sources) Developmental delay; Translations: [Unspecified lack of expected normal physiological development in childhood] Onset: 0 02-06-2020 Episodic Other nutritional; endocrine; and metabolic disorders (11 sources) Feeding difficulties and mismanagement; Translations: [Feeding difficulties and mismanagement] Onset: 6 Resolved: 7 03-12-2007 Episodic Other screening for suspected conditions (not mental disorders or infectious disease) (3 sources) Electrocardiogram abnormal; Translations: [Abnormal electrocardiogram [ECG] [EKG]] Onset: 3 11-18-2022 Episodic Other skin disorders (20 sources) Acne; Translations: [Acne, unspecified] Onset: 0 02-06-2020 Episodic Residual codes; unclassified (20 sources) History of craniotomy; Translations: [Other specified postprocedural states] Onset: 9 06-02-2018 Episodic Residual codes; unclassified (1 source) Other specified postprocedural states; Translations: [S/P craniotomy] Onset: 2 Episodic Syncope (11 sources) Syncope; Translations: [Syncope and collapse] Resolved: 9 06-01-2018 Episodic Results Test Name Value Interpretation Reference Range Facil ity XR FINGER LT 3RD DIGIT MIN 2 VWSon 11-18-2023 XR FINGER LT 3RD DIGIT MIN 2 VWS XR FINGER LT 3RD DIGIT MIN 2 VWS XR FINGER LT 3RD DIGIT MIN 2 VWS HISTORY: Finger pain, third digit injury COMPARISON: None FINDINGS: AP, lateral, oblique views of the third digit obtained. No fracture or dislocation. There is no destructive osseous lesion. Joint spaces are well-maintained. No degenerative changes. IMPRESSION: * No acute osseous abnormality. Approved by Resident: Sterling Chapa DO on 11/18/2023 11:07 AM Imtiaz Hill MD have personally reviewed the image(s) and agree with and/or edited the report Finalized by Imtiaz Hackett MD on 11/18/2023 11:54 AM Normal [facility] XR HAND LT MIN 3 VWSon 11-17 XR HAND LT MIN 3 VWS XR HAND LT MIN 3 VW S XR HAND LT MIN 3 VWS HISTORY: Finger pain, third digit pain, injury COMPARISON: None FINDINGS: AP, lateral, oblique views of the hand obtained. No fracture or dislocation. There is no destructive osseous lesion. Joint spaces are well-maintained without degenerative changes. IMPRESSION: * No acute osseous abnormality. Approved by Resident: Sterling Chapa DO on 11/18/2023 11:13 AM Imtiaz Hill MD have personally reviewed the image(s) and agree with and/or edited the report Finalized by Imtiaz Hackett MD on 11/18/2023 11:55 AM Normal [facility] CNCOon 11-06-2023 CNCO Letter Text Normal [facility] CNOVon 11-06-2023 CNOV Office Visit (NEPNMN ) SARA PICHARDO ([id number]) 03 [facility] Date Time Provider Department 11/06/23 11:00 AM MICHAEL ROPER During your visit today, we recorded the following information about you: Temperature Pulse Respiration Blood pressure 98.6 degrees 75/minute 18/minute 136/63 Weight Height 85.9 kg 1.74 m Michael Roper MD 11/08/2023 7:25 PM Signed [facility] Date of Service: 11/06/2023 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 No infections. Repeat serum titer level came back <1:10. Tremor has improved, likely was due to side effect of ASM. They are looking into school programs for Sara. He is currently working, no problems with his job. Visit 05/08/2023: Repeat serum NMDA-R antibodies decreased from 1:160 to 1:20. Saw Cardiology, no concerns. 3 weeks ago had flu-like symptoms, everyone at home was sick. Still has some cough. Family doctor thought he might have some residual bronchitis which they are monitoring. Not interested in getting COVID booster or flu shots despite my strong recommendation since he is on rituximab. Takes guanfacine in morning to help with his mood per Dr. Vaz. Started working but lost job because he was ill. Trying to find a different job. Will message my nurse to make sure next infusion gets scheduled for June 2023. Needs copy of neuropsych testing, will message Dr. Palomino. R>L UE tremor still present, occasionally drops things, although better after they had weaned down the Oxtellar. Discussed propanolol trial but they do not want to add more meds at this time. They are interested in OT. No other concerns. Visit 11/07/2022: Patient presents in person today, accompanied by Dad. This is a follow up visit with me. Continues on rituximab, no issues. No concern for relapse. Everything is going well. More alert, responsive today. Not as much mood swings, no more fighting. Follows with Dr. Vaz. Reports a couple weeks ago patient was running, then became really short of breath, which then resolved. Has not recurred since. Reminded still needs to follow up with outside Drug Inspector for prior abnormal EKG. Dad now says prefers to have referral to [facility] Cardiology so I have ordered this. Leg pain has completely resolved. Completed all therapies, no ongoing concerns. Graduated high school and will be going to trade school. Will also continue receiving speech therapy through the school. Tremors have improved with weaning down Oxtellar and increasing Topamax per [facility] team. Has had a few seizures likely due to missed meds. Has not scheduled with primary care doctor. Reminded Dad to schedule. No other new or worsening neurological concerns. 06/18/2022 Visit: Patient appears virtually with Dad. Per Dad, Sraa last week got very angry and was fighting with sister. Dad tried to calm him down and he started fighting with Dad. Took a while to calm down, then got a panic attack where was breathing really fast and was squeezing a ball to help. Also was more sleepy at school and this has been happening more frequently. Maybe 3 weeks ago he had a flu-like illness. No viral testing was done at that time. No other new or worsening neurologic symptoms reported. Sara seen briefly on video today, appears calm. 05/02/2022 Visit: Patient presents in person today, accompanied by Dad. Next 6-month rituximab infusion scheduled for 07/21/2022 in [facility]. Received his 2 induction doses in Dec 2021 without incident. Doing well overall. No other new or worsening neurological concerns noted. No suggestion of relapse. No recent infections. Having some trouble with hands and notes when trying to lift spoons his hands can shake. Dad concerned could be related to seizure meds, plans to follow up with Dr. Gibbs. Total vitamin D level in target range at 50. Complaining of occasional pain in L posterior leg region behind knee, advised will order ultrasound and x-ray and refer to Ortho. No weakness or neuropathic features. Also advised needs to establish with primary care doctor, Dad requesting a referral. Creatinine a bit elevated, BP ok, last platelet count 126.advised to follow up with primary care for this. Possible also related to anti-seizure meds as rituximab does not typically result in these abnormalities. Doing physical therapy once per week at [facility]. Unable to see any of outside cushion worker's results in chart. Advised needs to follow up with Cardiology given their following note at last visit: Patient with history of NMDA receptor antibody, recurrent epilepsy. Here to establish care. No cardiac symptoms or previous cardiac issues apart from abnormal EKG showing sinus rhythm with possible LVH. Vital (more content not included)... Normal [facility] CNPNon 10-06-2023 CNPN Telephone (UROHR) SARA PICHARDO ([id number]) 03 [facility] Date Time Provider Department 10/06/[address] [facility] During your visit today, we recorded the following information about you: Paras Bowens MD 10/06/2023 4:37 PM Signed Left VM for patient's mother requesting US and Litholink be performed. Paras Bowens MD Urology Fellow Allergies As of Date: 10/06/2023 Noted Allergy Reaction BEES 01/08/2010 10 - Anaphylaxis Date Reviewed: 08/12/2023 Reviewed by: Lidia Jensen, RN - Fully Assessed Prescriptions as of 10/06/2023 - guanFACINE (TENEX) 1 mg tablet Take 1 tablet by mouth daily at bedtime. - OLANZapine orally disintegrating (ZYPREXA ZYDIS) 5 mg disintegrating tablet Take 1 tablet by mouth as needed. - perampanel (FYCOMPA) 8 mg tab(s) Take 1 tablet by mouth daily at bedtime for 180 days. - docusate sodium (COLACE) 100 mg capsule Take 1 capsule by mouth two times a day. - tamsulosin (FLOMAX) 0.4 mg Take 1 capsule by mouth at bedtime as needed for up to 14 days. Take for stent discomfort - divalproex DR (DEPAKOTE) 250 mg EC tablet Take 1 tablet by mouth daily at 6 pm. daily dose 1000mg in the morning and 1250mg at night - Cholecalciferol, Vitamin D3, (VITAMIN D) 25 mcg (1,000 unit) cap Take 2 capsules by mouth once daily. - divalproex DR (DEPAKOTE) 500 mg EC tablet Take 2 tablets by mouth two times a day. daily dose 1000mg in the morning and 1250mg at night - THERAPEUTIC-M 9 mg iron-400 mcg tablet Take 1 tablet by mouth once daily. - diazePAM (VALTOCO) 20 mg/2 spray (10mg/0.1mL x2) nasal spray Use 1 [place] in each nostril as needed for seizures lasting longer than 3 minutes (For seziures > 3 minutes or 3 seizures in 30 minutes.). - ibuprofen (MOTRIN) 200 mg tablet Take 2 tablets by mouth every 6 hours as needed for Pain or Fever. Problem List As Of Date 10/06/2023 Noted Resolved FEEDING PROBLEM [R63.30] 12/11/2005 03/12/2007 CONSTIPATION NOS [K59.00] 03/26/2006 03/12/2007 GASTROSTOMY COMPLICATION NOS [K94.20] 03/26/2006 03/12/2007 ESOPHAGEAL REFLUX [K21.9] 05/07/2006 03/12/2007 Abdominal pain [R10.9] 07/16/2011 02/08/2018 Movement disorder [G25.9] 09/29/2012 06/01/2018 Intermittent explosive disorder [F63.81] 09/25/2014 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*08/28/2015 Intractable epilepsy (HCC) [G40.919] 11/26/2016 06/01/2018 Cnfn-Z-oabpmb-D-aspar anderson (NMDA) receptor encep*10/27/2005 09/20/2021 Vitamin D deficiency [E55.9] 06/01/2018 Urinary incontinence [R32] 06/01/2018 Syncope [R55] 06/01/2018 Low blood pressure [I95.9] 06/01/2018 Tryd-H-hopzdy-D-aspar anderson (NMDA) receptor encep* Developmental delay [R62.50] 01/09/2020 Behavior problem in pediatric patient [R46.89] 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 S/P brain surgery [Z98.890] 02/12/2018 06/01/2018 Epilepsy (HCC) [G40.909] 01/13/2018 S/P craniotomy [Z98.890] 05/26/2018 Cerebral edema (HCC) [G93.6] 05/31/2018 09/20/2021 Physical deconditioning [R53.81] 06/02/2018 09/20/2021 Seizure-like activity (HCC) [R56.9] 02/04/2020 Acne [L70.9] 02/04/2020 ADHD (attention deficit hyperactivity disorder)*02/08/2021 Adjustment disorder with mixed anxiety and depr*02/08/2021 History of encephalitis [Z86.61] 11/01/2021 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 Malnutrition of moderate degree (HCC) [E44.0] 12/18/2021 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 INTERPRETIVE INFORMATION: NMDA Receptor Ab IgG CBA-IFA, Serum NMDA receptor antibody is found in a subset of patients with autoimmune limbic encephalitis and may occur with or without associated tumor. Decreasing antibody levels may be associated with therapeutic response. In addition, positive results have been reported in patients with non-autoimmune phenotypes. A negative test result does not rule out a diagnosis of autoimmune limbic encephalitis. Results should be interpreted in correlation with the patient's clinical history and other laboratory findings. Serum testing should be paired with CSF testing for improved diagnostic sensitivity. This indirect fluorescent antibody assay utilizes full-length GluN1 transfected cell lines for the detection and semiquantification of NMDA receptor IgG antibody. This test was developed and its performance characteristics determined by [facility]. It has not been cleared or approved by the [place] Food and Drug Administration. This test was performed in a CLIA certified laboratory and is intended for clinical purposes. Performed By: [facility] [address] [place] [id number] Cinnamon Grinder: Sabas Ortiz MD, PhD CLIA Number: [id number] Performed By: #### [facility] ####[facility] [id number] [place] [address] CNPLizet 09-09-2023 CNPN Telephone (NEPNMN) SARA PICHARDO ([id number]) 03 [facility] Date Time Provider Department 09/09/23 MICHAEL ROPER During your visit today, we recorded the following information about you: Huey Priest RN 09/09/2023 3:[address] Roper: Sara's serum NMDA antibody level came back high just before his recent rituximab infusion. Would you be able to help arrange to have the level repeated in about a month and also see if we can try and have his next infusion scheduled at the 5 instead of 6 month afshin (so the next infusion would be in mid-December 2023)? Thanks! Called mom via finishing range operator# [phone], no answer. LM to call the office. MIKE Ramos Sidney 09/10/2023 4:33 PM Signed Mom called returning missed call Please advise, call back needed with local driver Huey Priest RN 09/11/2023 11:44 AM Signed Called mom via finishing range operator# [phone] No answer, LM to call the office. MIKE Ramos Kelley, RN 09/11/2023 1:20 PM Signed Called mom via finishing range operator# [phone] No answer, LM to call the office. Huey Priest RN Allergies As of Date: 09/09/2023 Noted Allergy Reaction BEES 01/08/2010 10 - Anaphylaxis Date Reviewed: 08/12/2023 Reviewed by: Lidia Jensen RN - Fully Assessed Prescriptions as of 09/11/2023 - perampanel (FYCOMPA) 8 mg tab(s) Take 1 tablet by mouth daily at bedtime for 180 days. - docusate sodium (COLACE) 100 mg capsule Take 1 capsule by mouth two times a day. - tamsulosin (FLOMAX) 0.4 mg Take 1 capsule by mouth at bedtime as needed for up to 14 days. Take for stent discomfort - divalproex DR (DEPAKOTE) 250 mg EC tablet Take 1 tablet by mouth daily at 6 pm. daily dose 1000mg in the morning and 1250mg at night - Cholecalciferol, Vitamin D3, (VITAMIN D) 25 mcg (1,000 unit) cap Take 2 capsules by mouth once daily. - divalproex DR (DEPAKOTE) 500 mg EC tablet Take 2 tablets by mouth two times a day. daily dose 1000mg in the morning and 1250mg at night - THERAPEUTIC-M 9 mg iron-400 mcg tablet Take 1 tablet by mouth once daily. - diazePAM (VALTOCO) 20 mg/2 spray (10mg/0.1mL x2) nasal spray Use 1 [place] in each nostril as needed for seizures lasting longer than 3 minutes (For seziures > 3 minutes or 3 seizures in 30 minutes.). - guanFACINE (TENEX) 1 mg tablet Take 1 tablet by mouth once daily. - OLANZapine orally disintegrating (ZYPREXA ZYDIS) 5 mg disintegrating tablet Take 1 tablet by mouth as needed. - ibuprofen (MOTRIN) 200 mg tablet Take 2 tablets by mouth every 6 hours as needed for Pain or Fever. 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] 11/26/2016 06/01/2018 Uibn-B-mfutlf-D-aspar anderson (NMDA) receptor encep*10/27/2005 09/20/2021 Vitamin D deficiency [E55.9] 06/01/2018 Urinary incontinence [R32] 06/01/2018 Syncope [R55] 06/01/2018 Low blood pressure [I95.9] 06/01/2018 Gdsn-W-niqnwz-D-aspar anderson (NMDA) receptor encep* Developmental delay [R62.50] 01/09/2020 Behavior problem in pediatric patient [R46.89] 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 S/P brain surgery [Z98.890] 02/12/2018 06/01/2018 Epilepsy (HCC) [G40.909] 01/13/2018 S/P craniotomy [Z98.890] 05/26/2018 Cerebral edema (HCC) [G93.6] 05/31/2018 09/20/2021 Physical deconditioning [R53.81] 06/02/2018 09/20/2021 Seizure-like activity (HCC) [R56.9] 02/04/2020 Acne [L70.9] 02/04/2020 ADHD (attention deficit hyperactivity disorder)*02/08/2021 Adjustment disorder with mixed anxiety and depr*02/08/2021 History of encephalitis [Z86.61] 11/01/2021 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 Malnutrition of moderate degree (HCC) [E44.0] 12/18/2021 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] 03/14/2023 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] 03/15/2023 Bilateral kidney stones [N20.0] 07/08/2023 Encounter Status:Closed by HUEY PRIEST on 09/11/23 Normal [facility] 25(OH)D3 Avi-Aditya 2023 25-hydroxyvitamin D3 [Mass/Vol] 56.6 ng/mL Normal 31.0-80.0 [facility] Comment on above: Order Comment: Speci men Type: BLOOD SPECIMEN Ordering Facility: [facility] Address: [address] [id number] Performed By: #### 7 3752-8 #### [facility] CLIA [id number] [address] [place] [address] STATES OF [facility] AUTOIMMUNE ENCEPHALOPATHY EV ALUATION, SERUMon 08-12-2023 AMPA-R AB CBA, S Negative Normal [facility] Comment on above: Order Comment: Chaparro sandra Type: BLOOD SPECIMEN Ordering Facility: [facility] Address: [address] [place] [address] Result Comment: ADDITIONAL INFORMATION This test was developed and its performance characteristics determined by [facility] in a manner consistent with CLIA requirements. This test has not been cleared or approved by the U.S. Food and Drug Administration. Performed By: #### 7 3752-8 #### [facility] CLIA [id number] [address] [place] [address] AMPHIPHYSIN AB Negative Normal Negative [facility] Comment on above: Order Comment: Chaparro sandra Type: BLOOD SPECIMEN Ordering Facility: [facility] Address: [address] [place] [address] Result Comment: ADDITIONAL INFORMATION This test was developed and its performance characteristics determined by [facility] in a manner consistent with CLIA requirements. This test has not been cleared or approved by the U.S. Food and Drug Administration. Performed By: #### 7 3752-8 #### [facility] CLIA [id number] [address] [place] [address] ANTI-GLIAL NUCLEAR AB, TYPE 1 Negative Normal Negative [facility] Comment on above: Order Comment: Chaparro sandra Type: BLOOD SPECIMEN Ordering Facility: [facility] Address: [address] [place] [address] Result Comment: ADDITIONAL INFORMATION This test was developed and its performance characteristics determined by [facility] in a manner consistent with CLIA requirements. This test has not been cleared or approved by the U.S. Food and Drug Administration. Performed By: #### 7 3752-8 #### [facility] CLIA [id number] [address] [place] [address] ANTI-NEURONAL NUC AB, TYPE 1 Negative Normal Negative [facility] Comment on above: Order Comment: Chaparro sandra Type: BLOOD SPECIMEN Ordering Facility: [facility] Address: [address] [place] [address] Result Comment: ADDITIONAL INFORMATION This test was developed and its performance characteristics determined by [facility] in a manner consistent with CLIA requirements. This test has not been cleared or approved by the U.S. Food and Drug Administration. Performed By: #### 7 3752-8 #### [facility] CLIA [id number] [address] [place] [address] ANTI-NEURONAL NUC AB, TYPE 2 Negative Normal Negative [facility] Comment on above: Order Comment: Chaparro sandra Type: BLOOD SPECIMEN Ordering Facility: [facility] Address: [address] [place] [address] Result Comment: ADDITIONAL INFORMATION This test was developed and its performance characteristics determined by [facility] in a manner consistent with CLIA requirements. This test has not been cleared or approved by the U.S. Food and Drug Administration. Performed By: #### 7 3752-8 #### [facility] CLIA [id number] [address] [place], [place] [id number] [place] ANTI-NEURONAL NUC AB, TYPE 3 Negative Normal Negative [facility] Comment on above: Order Comment: Chaparro sandra Type: BLOOD SPECIMEN Ordering Facility: [facility] Address: [address] [place] [address] Result Comment: ADDITIONAL INFORMATION This test was developed and its performance characteristics determined by [facility] in a manner consistent with CLIA requirements. This test has not been cleared or approved by the U.S. Food and Drug Administration. Performed By: #### 7 3752-8 #### [facility] CLIA [id number] [address] [place] [address] STATES OF JED CASPR2-IGG CBA S Negative Normal Negative [facility] Comment on above: Order Comment: Chaparro sandra Type: BLOOD SPECIMEN Ordering Facility: [facility] Address: [address] [place] [address] Result Comment: ADDITIONAL INFORMATION This test was developed and its performance characteristics determined by [facility] in a manner consistent with CLIA requirements. This test has not been cleared or approved by the U.S. Food and Drug Administration. Performed By: #### 7 3752-8 #### [facility] CLIA [id number] [address] [place] [address] STATES OF JED CRMP-5, IGG Negative Normal Negative [facility] Comment on above: Order Comment: Chaparro sandra Type: BLOOD SPECIMEN Ordering Facility: [facility] Address: [address] [place] [address] Result Comment: ADDITIONAL INFORMATION This test was developed and its performance characteristics determined by [facility] in a manner consistent with CLIA requirements. This test has not been cleared or approved by the U.S. Food and Drug Administration. Performed By: #### 7 3752-8 #### [facility] CLIA [id number] [address] [place] [address] [place] DPPX AB IFA, S Negative Normal Negative [facility] Comment on above: Order Comment: Speci men Type: BLOOD SPECIMEN Ordering Facility: [facility] Address: [address] [place] [address] Result Comment: ADDITIONAL INFORMATION This test was developed and its performance characteristics determined by [facility] in a manner consistent with CLIA requirements. This test has not been cleared or approved by the U.S. Food and Drug Administration. Performed By: #### 7 3752-8 #### [facility] CLIA [id number] [address] [place] [address] STATES [facility] ENCEPHALOPATHY INTERPRETATION SEE NOTE Normal [facility] Comment on above: Order Comment: Speci men Type: BLOOD SPECIMEN Ordering Facility: [facility] Address: [address] [place] [address] Result Comment: The following antibody was identified: Q-Tyukag-F-Aspartate Receptor. * This profile is consistent with neurological autoimmunity. * This profile supports a paraneoplastic autoimmune neurological disorder. Considerations include: gonadal or extragonadal teratoma. Less common oncological associations among adults include carcinomas of lung, breast, testis, ovary and pancreas, and thymoma. * References: Geri VICK et al, Treatment and prognostic factors for long-term outcome in patients with anti-NMDA receptor encephalitis: an observational cohort study. Lancet Neurol. 2013;12:157-65. * Performed By: #### 7 3752-8 #### [facility] CLIA [id number] [address] [place] [address] STATES [place] ERIC-B-R AB CBA, S Negative Normal Negative [facility] Comment on above: Order Comment: Speci men Type: BLOOD SPECIMEN Ordering Facility: [facility] Address: [address] [place] [address] Result Comment: ADDITIONAL INFORMATION This test was developed and its performance characteristics determined by [facility] in a manner consistent with CLIA requirements. This test has not been cleared or approved by the U.S. Food and Drug Administration. Performed By: #### 7 3752-8 #### [facility] CLIA [id number] [address] [place] [address] STATES OF J[place] GAD65 ANTIBODY 0.00 nmol/L Normal <= 0.02 [facility] Comment on above: Order Comment: Chaparro sandra Type: BLOOD SPECIMEN Ordering Facility: [facility] Address: [address] [place] [address] Result Comment: ADDITIONAL INFORMATION This test was developed and its performance characteristics determined by [facility] in a manner consistent with CLIA requirements. This test has not been cleared or approved by the U.S. Food and Drug Administration. Performed By: #### 7 3752-8 #### [facility] CLIA [id number] [address] [place] [address] [place] GFAP IFA, S Negative Normal Negative [facility] Comment on above: Order Comment: Chaparro jocy Type: BLOOD SPECIMEN Ordering Facility: [facility] Address: [address] [place] [address] Result Comment: ADDITIONAL INFORMATION This test was developed and its performance characteristics determined by [facility] in a manner consistent with CLIA requirements. This test has not been cleared or approved by the U.S. Food and Drug Administration. Performed By: #### 7 3752-8 #### [facility] CLIA [id number] [address] [place] [address] STATES OF J[place] IFA NOTES - ENCSER None. Normal [facility] Comment on above: Order Comment: Speci men Type: BLOOD SPECIMEN Ordering Facility: [facility] Address: [address] [place] [address] Performed By: #### 7 3752-8 #### [facility] CLIA [id number] [address] [place] [address] STATES OF J[place] IGLON5 IFA, S Negative Normal Negative [facility] Comment on above: Order Comment: Speci men Type: BLOOD SPECIMEN Ordering Facility: [facility] Address: [address] [place] [address] Result Comment: ADDITIONAL INFORMATION This test was developed and its performance characteristics determined by [facility] in a manner consistent with CLIA requirements. This test has not been cleared or approved by the U.S. Food and Drug Administration. Performed By: #### 7 3752-8 #### [facility] CLIA [id number] [address] [place] [address] STATES OF JED LGI1-IGG CBA SERUM Negative Normal Negative [facility] Comment on above: Order Comment: Speci men Type: BLOOD SPECIMEN Ordering Facility: [facility] Address: [address] [place] [address] Result Comment: ADDITIONAL INFORMATION This test was developed and its performance characteristics determined by [facility] in a manner consistent with CLIA requirements. This test has not been cleared or approved by the U.S. Food and Drug Administration. Performed By: #### 7 3752-8 #### [facility] CLIA [id number] [address] [place] [address] [place] MGLUR1 AB IFA, S Negative Normal Negative [facility] Comment on above: Order Comment: Chaparro sandra Type: BLOOD SPECIMEN Ordering Facility: [facility] Address: [address] [place] [address] Result Comment: ADDITIONAL INFORMATION This test was developed and its performance characteristics determined by [facility] in a manner consistent with CLIA requirements. This test has not been cleared or approved by the U.S. Food and Drug Administration. Performed By: #### 7 3752-8 #### [facility] CLIA [id number] [address] [place] [address] OF JED NEUROCHONDRIN IFA , S Negative Normal Negative [facility] Comment on above: Order Comment: Chaparro sandra Type: BLOOD SPECIMEN Ordering Facility: [facility] Address: [address] [place] [address] Result Comment: ADDITIONAL INFORMATION This test was developed and its performance characteristics determined by [facility] in a manner consistent with CLIA requirements. This test has not been cleared or approved by the U.S. Food and Drug Administration. Performed By: #### 7 3752-8 #### [facility] CLIA [id number] [address] [place] [address] [place] NIF IFA, S Negative Normal Negative [facility] Comment on above: Order Comment: Chaparro sandra Type: BLOOD SPECIMEN Ordering Facility: [facility] Address: [address] [place] [address] Result Comment: ADDITIONAL INFORMATION This test was developed and its performance characteristics determined by [facility] in a manner consistent with CLIA requirements. This test has not been cleared or approved by the U.S. Food and Drug Administration. Performed By: #### 7 3752-8 #### [facility] CLIA [id number] [address] [place] [address] [place] NMDA-R AB CBA, S Positive High Negative Eduvelricardo persaud [facility] Comment on above: Order Comment: Chaparro sandra Type: BLOOD SPECIMEN Ordering Facility: [facility] Address: [address] [place] [address] Result Comment: ADDITIONAL INFORMATION This test was developed and its performance characteristics determined by [facility] in a manner consistent with CLIA requirements. This test has not been cleared or approved by the U.S. Food and Drug Administration. Performed By: #### 7 3752-8 #### [facility] CLIA [id number] [address] [place] [address] PURKINJE CELL CYTO AB, TYPE 1 Negative Normal Negative [facility] Comment on above: Order Comment: Chaparro sandra Type: BLOOD SPECIMEN Ordering Facility: [facility] Address: [address] [place] [address] Result Comment: ADDITIONAL INFORMATION This test was developed and its performance characteristics determined by [facility] in a manner consistent with CLIA requirements. This test has not been cleared or approved by the U.S. Food and Drug Administration. Performed By: #### 7 3752-8 #### [facility] CLIA [id number] [address] [place] [address] PURKINJE CELL CYTO AB, TYPE 2 Negative Normal Negative [facility] Comment on above: Order Comment: Chaparro sandra Type: BLOOD SPECIMEN Ordering Facility: [facility] Address: [address] [place] [address] Result Comment: ADDITIONAL INFORMATION This test was developed and its performance characteristics determined by [facility] in a manner consistent with CLIA requirements. This test has not been cleared or approved by the U.S. Food and Drug Administration. Performed By: #### 7 3752-8 #### [facility] CLIA [id number] [address] [place] [address] [place] PURKINJE CELL CYTO AB, TYPE TR Negative Normal Negative [facility] Comment on above: Order Comment: Chaparro sandra Type: BLOOD SPECIMEN Ordering Facility: [facility] Address: [address] [place] [address] Result Comment: ADDITIONAL INFORMATION This test was developed and its performance characteristics determined by [facility] in a manner consistent with CLIA requirements. This test has not been cleared or approved by the U.S. Food and Drug Administration. Performed By: #### 7 3752-8 #### [facility] CLIA [id number] [address] [place] [address] STATES OF JED SEPTIN-7 IFA, S Negative Normal Negative [facility] Comment on above: Order Comment: Chaparro sandra Type: BLOOD SPECIMEN Ordering Facility: [facility] Address: [address] [place] [address] Result Comment: ADDITIONAL INFORMATION This test was developed and its performance characteristics determined by [facility] in a manner consistent with CLIA requirements. This test has not been cleared or approved by the U.S. Food and Drug Administration. Test Performed by: [facility] - [address] [address] Oncology Nurse Navigator: Tk Williamson M.D. Ph.D.; CLIA# [id number] Performed By: #### 7 3752-8 #### [facility] CLIA [id number] [address] [place] [address] OF [facility] BLOOD TB SCREENon 08-12-2023 M. tuberculosis tuberculin stim IFN-g Ql (Bld) Negative Normal [facility] Comment on above: Order Comment: Speci men Type: BLOOD SPECIMENOrdering Facility: [facility] Address: [address] [place] [address] Performed By: #### I NFTBP ####[facility] [id number] [place] [address] [place] MITOGEN MINUS NIL >9.74 Normal >=0.50 [facility] Comment on above: Order Comment: Speci men Type: BLOOD SPECIMENOrdering Facility: [facility] Address: [address] [place] [address] Performed By: #### I NFTBP ####[facility] [id number] [address] OF [facility] TB GAMMA INTERPRETATION Infection with M. tuberculosis complex is unlikely. If latent tuberculosis infection is highly suspected, a negative result does not rule out the infection. Specimens from immunocompromised patients and those <5 years of age may show false negative results. In case of a contact investigation, please repeat 8-12 weeks after a known exposure. Normal [facility] Comment on above: Order Comment: Speci men Type: BLOOD SPECIMENOrdering Facility: [facility] Address: [address] [place] [address] Performed By: #### I NFTBP ####[facility] [id number] [address] TB NIL 0.26 IU/mL Normal <=8.00 [facility] Comment on above: Order Comment: Speci men Type: BLOOD SPECIMENOrdering Facility: [facility] Address: [address] [place] [address] Performed By: #### I NFTBP ####[facility] [id number] STATES OF [place]ED TB1 AG MINUS NIL 0.10 IU/mL Normal <0.35 [facility] Comment on above: Order Comment: Speci men Type: BLOOD SPECIMENOrdering Facility: [facility] Address: [address] [place] [address] Performed By: #### I NFTBP ####[facility] [id number] [address] STATES OF [place]ED TB2 AG MINUS NIL <0.00 Normal <0.35 [facility] Comment on above: Order Comment: Speci men Type: BLOOD SPECIMENOrdering Facility: [facility] Address: [address] [place] [address] Performed By: #### I NFTBP ####[facility] [id number] [address] STATES OF [facility] CBC W Auto Differential pane l (Bld)on 08-12-2023 Basophils (Bld) [#/Vol] <0.11 k/uL [facility] Basophils/100 WBC (Bld) 0.2 % [facility] Differential cell count method Nom (Bld) Auto [facility] Eosinophils (Bld) [#/Vol] 0.06 10*3/uL <0.46 k/uL [facility] Eosinophils/100 WBC (Bld) 1.3 % [facility] Erythrocyte distribution width (RBC) [Ratio] 12.3 % 11.5 - 15.0 % [facility] Hematocrit (Bld) [Volume fraction] 43.0 % 39.0 - 51.0 % [facility] Hemoglobin (Bld) [Mass/Vol] 14.8 g/dL 13.0 - 17.0 g/dL [facility] Immature granulocytes (Bld) [#/Vol] 0.03 10*3/uL <0.10 k/uL [facility] Immature granulocytes/100 WBC (Bld) 0.6 % [facility] Lymphocytes (Bld) [#/Vol] 1.89 10*3/uL 1.00 - 4.00 k/uL [facility] Lymphocytes/100 WBC (Bld) 40.8 % [facility] MCH (RBC) [Entitic mass] 31.8 pg 26.0 - 34.0 pg [facility] MCHC (RBC) [Mass/Vol] 34.4 g/dL 30.5 - 36.0 g/dL [facility] MCV (RBC) [Entitic vol] 92.3 fL 80.0 - 100.0 fL [facility] Monocytes (Bld) [#/Vol] 0.43 10*3/uL <0.87 k/uL [facility] Monocytes/100 WBC (Bld) 9.3 % [facility] Neutrophils (Bld) [#/Vol] 2.21 10*3/uL 1.45 - 7.50 k/uL [facility] Neutrophils/100 WBC (Bld) 47.8 % [facility] Nucleated RBC (Bld) [#/Vol] <0.01 k/uL [facility] Nucleated RBC/100 WBC (Bld) [Ratio] 0.0 /100 WBC [facility] Platelet mean volume (Bld) [Entitic vol] 10.2 fL 9.0 - 12.7 fL [facility] Platelets (Bld) [#/Vol] 104 10*3/uL Low 150 - 400 k/uL [facility] RBC (Bld) [#/Vol] 4.66 10*6/uL 4.20 - 6.0 0 m/uL [facility] WBC (Bld) [#/Vol] 4.63 10*3/uL 3.70 - 11. 00 k/uL [facility] Basophils (Bld) [#/Vol] 10*3/uL Normal <0.11 [facility] Comment on above: Order Comment: Speci men Type: BLOOD SPECIMEN Ordering Facility: [facility] Address: [address] [place] [address] Performed By: #### 5 7021-8 #### [facility] CLIA [id number] [address] [place] [address] [place] Basophils/100 WBC (Bld) 0.2 % Normal [facility] Comment on above: Order Comment: Speci men Type: BLOOD SPECIMEN Ordering Facility: [facility] Address: [address] [place] [address] Performed By: #### 5 7021-8 #### [facility] [id number] [address] [place] [address] [place] Differential cell count method Nom (Bld) Auto Normal [facility] Comment on above: Order Comment: Speci men Type: BLOOD SPECIMEN Ordering Facility: [facility] Address: [address] [place] [address] Performed By: #### 5 7021-8 #### [facility] [id number] [address] [place] [address] [place] Eosinophils (Bld) [#/Vol] 0.06 10*3/uL Normal <0.46 [facility] Comment on above: Order Comment: Speci men Type: BLOOD SPECIMEN Ordering Facility: [facility] Address: [address] [place] [address] Performed By: #### 5 7021-8 #### [facility] [id number] [address] [place] [address] [place] Eosinophils/100 WBC (Bld) 1.3 % Normal [facility] Comment on above: Order Comment: Speci men Type: BLOOD SPECIMEN Ordering Facility: [facility] Address: [address] [place] [address] Performed By: #### 5 7021-8 #### [facility] [id number] [address] [place] [address] [place] Erythrocyte distribution width (RBC) [Ratio] 12.3 % Normal 11.5-15.0 [facility] Comment on above: Order Comment: Speci men Type: BLOOD SPECIMEN Ordering Facility: [facility] Address: [address] [place] [address] Performed By: #### 5 7021-8 #### [facility] [id number] [address] [place] [address] [place] Hematocrit (Bld) [Volume fraction] 43.0 % Normal 39.0-51.0 [facility] Comment on above: Order Comment: Speci men Type: BLOOD SPECIMEN Ordering Facility: [facility] Address: [address] [place] [address] Performed By: #### 5 7021-8 #### [facility] [id number] [address] [place] [address] [place] Hemoglobin (Bld) [Mass/Vol] 14.8 g/dL Normal 13.0-17.0 [facility] Comment on above: Order Comment: Speci men Type: BLOOD SPECIMEN Ordering Facility: [facility] Address: [address] [place] [address] Performed By: #### 5 7021-8 #### [facility] [id number] [address] [place] [address] [place] Immature granulocytes (Bld) [#/Vol] 0.03 10*3/uL Normal <0.10 [facility] Comment on above: Order Comment: Speci men Type: BLOOD SPECIMEN Ordering Facility: [facility] Address: [address] [place] [address] Performed By: #### 5 7021-8 #### [facility] [id number] [address] [place] [address] [place] Immature granulocytes/100 WBC (Bld) 0.6 % Normal [facility] Comment on above: Order Comment: Speci men Type: BLOOD SPECIMEN Ordering Facility: [facility] Address: [address] [place] [address] Performed By: #### 5 7021-8 #### [facility] [id number] [address] [place] [address] [place] Lymphocytes (Bld) [#/Vol] 1.89 10*3/uL Normal 1.00-4.00 [facility] Comment on above: Order Comment: Speci men Type: BLOOD SPECIMEN Ordering Facility: [facility] Address: [address] [place] [address] Performed By: #### 5 7021-8 #### [facility] [id number] [address] [place] [address] [place] Lymphocytes/100 WBC (Bld) 40.8 % Normal [facility] Comment on above: Order Comment: Speci men Type: BLOOD SPECIMEN Ordering Facility: [facility] Address: [address] [place] [address] Performed By: #### 5 7021-8 #### [facility] [place] [id number] [address] [place] [address] [place] MCH (RBC) [Entitic mass] 31.8 pg Normal 26.0-34.0 [facility] Comment on above: Order Comment: Speci men Type: BLOOD SPECIMEN Ordering Facility: [facility] Address: [address] [place] [address] Performed By: #### 5 7021-8 #### [facility] [place] [id number] [address] [place] [address] [place] MCHC (RBC) [Mass/Vol] 34.4 g/dL Normal 30.5-36.0 [facility] Comment on above: Order Comment: Speci men Type: BLOOD SPECIMEN Ordering Facility: [facility] Address: [address] [place] [address] Performed By: #### 5 7021-8 #### [facility] [id number] [address] [place] [address] [place] MCV (RBC) [Entitic vol] 92.3 fL Normal 80.0-100.0 [facility] Comment on above: Order Comment: Speci men Type: BLOOD SPECIMEN Ordering Facility: [facility] Address: [address] [place] [address] Performed By: #### 5 7021-8 #### [facility] [id number] [address] [place] [address] [place] Monocytes (Bld) [#/Vol] 0.43 10*3/uL Normal <0.87 [facility] Comment on above: Order Comment: Speci men Type: BLOOD SPECIMEN Ordering Facility: [facility] Address: [address] [place] [address] Performed By: #### 5 7021-8 #### [facility] [id number] [address] [place] [address] [place] Monocytes/100 WBC (Bld) 9.3 % Normal [facility] Comment on above: Order Comment: Speci men Type: BLOOD SPECIMEN Ordering Facility: [facility] Address: [address] [place] [address] Performed By: #### 5 7021-8 #### [facility] [id number] [address] [place] [address] [place] Neutrophils (Bld) [#/Vol] 2.21 10*3/uL Normal 1.45-7.50 [facility] Comment on above: Order Comment: Speci men Type: BLOOD SPECIMEN Ordering Facility: [facility] Address: [address] [place] [address] Performed By: #### 5 7021-8 #### [facility] [place] [id number] [address] [place] [address] [place] Neutrophils/100 WBC (Bld) 47.8 % Normal [facility] Comment on above: Order Comment: Speci men Type: BLOOD SPECIMEN Ordering Facility: [facility] Address: [address] [place] [address] Performed By: #### 5 7021-8 #### [facility] [id number] [address] [place] [address] [place] Nucleated RBC (Bld) [#/Vol] 10*3/uL Normal <0.01 [facility] Comment on above: Order Comment: Speci men Type: BLOOD SPECIMEN Ordering Facility: [facility] Address: [address] [place] [address] Performed By: #### 5 7021-8 #### [facility] [id number] [address] [place] [address] [place] Nucleated RBC/100 WBC (Bld) [Ratio] 0.0 /100 WBC Normal [facility] Comment on above: Order Comment: Speci men Type: BLOOD SPECIMEN Ordering Facility: [facility] Address: [address] [place] [address] Performed By: #### 5 7021-8 #### [facility] [id number] [address] [place] [address] [place] Platelet mean volume (Bld) [Entitic vol] 10.2 fL Normal 9.0-12.7 [facility] Comment on above: Order Comment: Speci men Type: BLOOD SPECIMEN Ordering Facility: [facility] Address: [address] [place] [address] Performed By: #### 5 7021-8 #### [facility] [id number] [address] [place] [address] [place] Platelets (Bld) [#/Vol] 104 10*3/uL Low 150-400 [facility] Comment on above: Order Comment: Speci men Type: BLOOD SPECIMEN Ordering Facility: [facility] Address: [address] [place] [address] Result Comment: Resu lts checked and verified.No clot detected. Performed By: #### 5 7021-8 #### [facility] [id number] [address] [place] [address] [place] RBC (Bld) [#/Vol] 4.66 10*6/uL Normal 4.20-6.00 [facility] Comment on above: Order Comment: Speci men Type: BLOOD SPECIMEN Ordering Facility: [facility] Address: [address] [place] [address] Performed By: #### 5 7021-8 #### [facility] [id number] [address] [place] [address] [place] WBC (Bld) [#/Vol] 4.63 10*3/uL Normal 3.70-11.00 [facility] Comment on above: Order Comment: Speci men Type: BLOOD SPECIMEN Ordering Facility: [facility] Address: [address] [place] [address] Performed By: #### 5 7021-8 #### [facility] CLIA [id number] [address] [place] [address] OF [facility] Comprehensive metabolic 2000 panelon 08-12-2023 Albumin [Mass/Vol] 4.4 g/dL 3.9 - 4.9 g/dL [facility] ALP [Catalytic activity/Vol] 69 U/L 38 - 113 U/L [facility] ALT [Catalytic activity/Vol] 18 U/L 10 - 54 U/L [facility] Anion gap [Moles/Vol] 9 mmol/L 9 - 18 mmol/L [facility] AST [Catalytic activity/Vol] 31 U/L 14 - 40 U/L [facility] Bilirubin [Mass/Vol] 0.3 mg/dL 0.2 - 1.3 mg/dL [facility] Calcium [Mass/Vol] 8.9 mg/dL 8.5 - 10. 2 mg/dL [facility] Chloride [Moles/Vol] 106 mmol/L High 97 - 105 mmol/L [facility] CO2 [Moles/Vol] 26 mmol/L 22 - 30 mmol/L [facility] Creatinine [Mass/Vol] 0.79 mg/dL 0.73 - 1.22 mg/dL [facility] Estimated Glomerular Filtration Rate 131 mL/min/1.73m >=60 mL/min/1.73m [facility] Glucose [Mass/Vol] 86 mg/dL 74 - 99 mg/dL [facility] Potassium [Moles/Vol] 3.8 mmol/L 3.7 - 5.1 mmol/L [facility] Protein [Mass/Vol] 7.0 g/dL 6.3 - 8.0 g/dL [facility] Sodium [Moles/Vol] 141 mmol/L 136 - 144 mmol/L [facility] Urea nitrogen [Mass/Vol] 15 mg/dL 9 - 24 mg/dL [facility] Albumin [Mass/Vol] 4.4 g/dL Normal 3.9-4.9 [facility] Comment on above: Order Comment: Speci men Type: BLOOD SPECIMENOrdering Facility: [facility] Address: [address] [place] [address] Performed By: #### 2 4323-8 ####[facility] [id number] [place] [address] [place] ALP [Catalytic activity/Vol] 69 U/L Normal 38-113 [facility] Comment on above: Order Comment: Speci men Type: BLOOD SPECIMENOrdering Facility: [facility] Address: [address] [place] [address] Performed By: #### 2 4323-8 ####[facility] [place] [id number] [place] [address] [place] ALT [Catalytic activity/Vol] 18 U/L Normal 10-54 [facility] Comment on above: Order Comment: Speci men Type: BLOOD SPECIMENOrdering Facility: [facility] Address: [address] [place] [address] Performed By: #### 2 4323-8 ####[facility] [place] [id number] [place] [address] [place] Anion gap [Moles/Vol] 9 mmol/L Normal 9-18 [facility] Comment on above: Order Comment: Speci men Type: BLOOD SPECIMENOrdering Facility: [facility] Address: [address] [place] [address] Performed By: #### 2 4323-8 ####[facility] [id number] [place] [address] [place] AST [Catalytic activity/Vol] 31 U/L Normal 14-40 [facility] Comment on above: Order Comment: Speci men Type: BLOOD SPECIMENOrdering Facility: [facility] Address: [address] [place] [address] Performed By: #### 2 4323-8 ####[facility] [id number] [place] [address] [place] Bilirubin [Mass/Vol] 0.3 mg/dL Normal 0.2-1.3 [facility] Comment on above: Order Comment: Speci men Type: BLOOD SPECIMENOrdering Facility: [facility] Address: [address] [place] [address] Performed By: #### 2 4323-8 ####[facility] [id number] [place] [address] [place] Calcium [Mass/Vol] 8.9 mg/dL Normal 8.5-10.2 [facility] Comment on above: Order Comment: Speci men Type: BLOOD SPECIMENOrdering Facility: [facility] Address: [address] [place] [address] Performed By: #### 2 4323-8 ####[facility] [id number] [place] [address] [place] Chloride [Moles/Vol] 106 mmol/L High 97-105 [facility] Comment on above: Order Comment: Speci men Type: BLOOD SPECIMENOrdering Facility: [facility] Address: [address] [place] [address] Performed By: #### 2 4323-8 ####[facility] [id number] [place] [address] [place] CO2 [Moles/Vol] 26 mmol/L Normal 22-30 [facility] Comment on above: Order Comment: Speci men Type: BLOOD SPECIMENOrdering Facility: [facility] Address: [address] [place] [address] Performed By: #### 2 4323-8 ####[facility] [id number] [place] [address] [place] Creatinine [Mass/Vol] 0.79 mg/dL Normal 0.73-1.22 [facility] Comment on above: Order Comment: Chaparro sandra Type: BLOOD SPECIMENOrdering Facility: [facility] Address: [address] [place] [address] Performed By: #### 2 4323-8 ####[facility] [id number] [place] [address] [place] Creatinine and Glomerular filtration rate.predicted panel (S/P/Bld) 131 mL/min/1.73m??? Normal >=60 [facility] Comment on above: Order Comment: Chaparro sandra Type: BLOOD SPECIMENOrdering Facility: [facility] Address: [address] [place] [address] Result Comment: Krystle mated Glomerular Filtration Rate (eGFR) is calculated using the 2020 CKD-EPI creatinine equation. This equation utilizes serum creatinine, sex, and age as parameters. The creatinine assay has traceable calibration to isotope dilution-mass spectrometry. Refer to KDIGO guidelines for clinical interpretation. In patients with unstable renal function, e.g. those with acute kidney injury, the eGFR may not accurately reflect actual GFR. Performed By: #### 2 4323-8 ####[facility] [id number] [place] [address] [place] Glucose [Mass/Vol] 86 mg/dL Normal 74-99 [facility] Comment on above: Order Comment: Chaparro sandra Type: BLOOD SPECIMENOrdering Facility: [facility] Address: [address] [place] [address] Result Comment: The [place] [employer] (ADA) provides guidance for cutoff values for fasting glucose and random glucose. The ADA defines fasting as no caloric intake for at least 8 hours. Fasting plasma glucose results between 100 to 125 mg/dL indicate increased risk for diabetes (prediabetes). Fasting plasma glucose results greater than or equal to 126 mg/dL meet the criteria for diagnosis of diabetes. In the absence of unequivocal hyperglycemia, results should be confirmed by repeat testing. In a patient with classic symptoms of hyperglycemia or hyperglycemic crisis, random plasma glucose results greater than or equal to 200 mg/dL meet the criteria for diagnosis of diabetes. Reference: Standards of Medical Care in Diabetes 2016, [place] [employer]. Diabetes Care. 2016.39(Suppl 1). Performed By: #### 2 4323-8 ####[facility] [id number] [place] [address] [place] Potassium [Moles/Vol] 3.8 mmol/L Normal 3.7-5.1 [facility] Comment on above: Order Comment: Speci men Type: BLOOD SPECIMENOrdering Facility: [facility] Address: [address] [place] [address] Performed By: #### 2 4323-8 ####[facility] [id number] [place] [address] [place] Protein [Mass/Vol] 7.0 g/dL Normal 6.3-8.0 [facility] Comment on above: Order Comment: Speci men Type: BLOOD SPECIMENOrdering Facility: [facility] Address: [address] [place] [address] Performed By: #### 2 4323-8 ####[facility] [id number] [place] [address] [place] Sodium [Moles/Vol] 141 mmol/L Normal 136-144 [facility] Comment on above: Order Comment: Speci men Type: BLOOD SPECIMENOrdering Facility: [facility] Address: [address] [place] [address] Performed By: #### 2 4323-8 ####[facility] [id number] [place] [address] [place] Urea nitrogen [Mass/Vol] 15 mg/dL Normal 9-24 [facility] Comment on above: Order Comment: Speci men Type: BLOOD SPECIMENOrdering Facility: [facility] Address: [address] [place] [address] Performed By: #### 2 4323-8 ####[facility] [id number] [address] STATES OF [facility] HBV core Ab Ser Qlon 024 HBV core Ab Ql (S) Negative Normal Negative [facility] Comment on above: Order Comment: Speci men Type: BLOOD SPECIMEN Ordering Facility: [facility] Address: [address] [place] [address] Result Comment: No e vidence of current or past infection with Hepatitis B virus. Should recent infection be suspected, repeat testing may be considered 3-4 weeks after this draw. Performed By: #### 7 3752-8 #### [facility] CLIA [id number] [address] [place] [address] OF [facility] HBV surface Ab Ql (S)on 07-26 HBV surface Ab Qn (S) [facility] HBV surface Ab Qn (S) <8.00 Normal [facility] Comment on above: Order Comment: Speci men Type: BLOOD SPECIMEN Ordering Facility: [facility] Address: [address] [place] [address] Result Comment: <8 m IU/mL: No serological evidence of immunity to Hepatitis B Virus. >/= 8 to <12 mIU/mL: No serological evidence of immunity to Hepatitis B Virus. >/= 12 mIU/mL: Consistent with serological evidence of immunity to Hepatitis B Virus. Performed By: #### 7 3752-8 #### [facility] CLIA [id number] [address] [place] [address] OF [facility] HBV surface Ab Ser Qlon 07-26 HBV surface Ab Ql (S) Negative Normal [facility] Comment on above: Order Comment: Speci men Type: BLOOD SPECIMEN Ordering Facility: [facility] Address: [address] [place] [address] Result Comment: No s erological evidence of immunity to Hepatitis B Virus. Performed By: #### 7 3752-8 #### [facility] CLIA [id number] [address] [place] [address] OF [place] HBV surface Ag Ser Qlon 07-26 HBV surface Ag Ql (S) Negative Normal Negative [facility] Comment on above: Order Comment: Speci men Type: BLOOD SPECIMEN Ordering Facility: [facility] Address: [address] [place] [address] Performed By: #### 2 4323-8 #### [facility] CLIA [id number] [address] [place] [address] [place] HCV Ab Ser Qlon 08-12-2023 HCV Ab Ql (S) Negative Normal Negative [facility] Comment on above: Order Comment: Speci men Type: BLOOD SPECIMEN Ordering Facility: [facility] Address: [address] [place] [address] Result Comment: The result suggests no evidence of active infection with Hepatitis C virus. Should recent infection be suspected, repeat testing may be considered 4-6 weeks after this draw. Performed By: #### 7 3752-8 #### [facility] CLIA [id number] [address] [place] [address] [place] HEPATITIS B CORE ANTIBODY TO [place] 08-12-2023 HBV core Ab Ql (S) Negative Negative [facility] HEPATITIS B SURFACE ANTIBODY on 08-12-2023 HBV surface Ab Ql (S) Negative [facility] HEPATITIS B SURFACE ANTIGENo n 08-12-2023 HBV surface Ag Ql (S) Negative Negative [facility] HEPATITIS C ANTIBODY IA WITH CONFIRMATIONon 08-12-2023 HCV Ab Ql (S) Negative Negative [facility] HIV 1+2 Ab IA Qlon HIV 1 and 2 Ab IA.rapid Nom (S/P/Bld) [facility] HIV 1+2 Ab+HIV1 p24 Ag IA Ql Non-Reactive Nonreactive [facility] HIV immunoassay testing algorithm interpretation (S/P/Bld) [Interp] [facility] HIV 1 and 2 Ab IA.rapid Nom (S/P/Bld) Normal [facility] Comment on above: Order Comment: Speci men Type: BLOOD SPECIMEN Ordering Facility: [facility] Address: [address] [place] [address] Result Comment: Test not indicated. Performed By: #### 2 4323-8 #### [facility] CLIA [id number] [address] [place] [address] [place] HIV 1+2 Ab+HIV1 p24 Ag IA Ql Non-Reactive Normal Nonreactive [facility] Comment on above: Order Comment: Speci men Type: BLOOD SPECIMEN Ordering Facility: [facility] Address: [address] [place] [address] Performed By: #### 2 4323-8 #### [facility] CLIA [id number] [address] [place] [address] [place] HIV immunoassay testing algorithm interpretation (S/P/Bld) [Interp] Normal [facility] Comment on above: Order Comment: Speci men Type: BLOOD SPECIMEN Ordering Facility: [facility] Address: [address] [place] [address] Result Comment: No e vidence of HIV-1 or HIV-2 infection. Should recent infection be suspected, repeat testing may be considered 2-3 weeks after this draw. [place] Rev. Code 3701.243(E): This information has been disclosed to you from confidential records protected from disclosure by state law. ???You shall make no further disclosure of this information without the specific, written, and informed release of the individual to whom it pertains or as otherwise permitted by state law. A general authorization for the release of medical or other information is not sufficient for the purpose of the release of HIV test results or diagnoses. Performed By: #### 2 4323-8 #### [facility] CLIA [id number] [address] [place] [address] [place] IMMUNOGLOBULIN [place] 4 IgG [Mass/Vol] 1199 mg/dL 549 - 1,584 mg/dL [facility] IMMUNOGLOBULIN Mon 4 IgM [Mass/Vol] 68 mg/dL 23 - 259 mg/dL [facility] IgG SerPl-mCncon 08-12-2023 IgG [Mass/Vol] 1199 mg/dL Normal 549-1584 [facility] Comment on above: Order Comment: Speci men Type: BLOOD SPECIMENOrdering Facility: [facility] Address: [address] [place] [address] Performed By: #### 2 465-3, 2472-9 ####[facility] [id number] [place] [address] [place] IgM SerPl-mCncon 08-12-2023 IgM [Mass/Vol] 68 mg/dL Normal 23-259 [facility] Comment on above: Order Comment: Speci men Type: BLOOD SPECIMEN Ordering Facility: [facility] Address: [address] [place] [address] Performed By: #### 5 7021-8 #### [facility] CLIA [id number] [address] [place] [address] [place] Immunodeficiency panel FC (B ld)on 08-12-2023 CD3 cells (Bld) [#/Vol] 1304 cells/uL 958 - 2,388 cells/uL [facility] CD3 cells/100 cells (Bld) 65 % 60 - 89 % [facility] CD3+CD4+ (T4 helper) cells (Bld) [#/Vol] 576 cells/uL 533 - 1,674 cells/uL [facility] CD3+CD4+ (T4 helper) cells/100 cells (Bld) 29 % Low 34 - 61 % [facility] CD3+CD4+ (T4 helper) cells/CD3+CD8+ (T8 suppressor cells) cells (Bld) [# ratio] 0.85 % Low 1.10 - 3.25 [facility] CD3+CD8+ (T8 suppressor cells) cells (Bld) [#/Vol] 677 cells/uL 175 - 958 cells/uL [facility] CD3+CD8+ (T8 suppressor cells) cells/100 cells (Bld) 34 % 10 - 41 % [facility] CD3-CD16+CD56+ (Natural killer) cells (Bld) [#/Vol] 652 cells/uL High 102 - 565 cells/uL [facility] CD3-CD16+CD56+ (Natural killer) cells/100 cells (Bld) 32 % High 5 - 25 % [facility] CD3-CD19+ cells (Bld) [#/Vol] 16 cells/uL Low 75 - 660 cells/uL [facility] CD3-CD19+ cells/100 cells (Bld) 1 % Low 5 - 22 % [facility] CD3 cells (Bld) [#/Vol] 1304 cells/uL Normal 958-2388 [facility] Comment on above: Order Comment: Speci men Type: BLOOD SPECIMEN Ordering Facility: [facility] Address: [address] [place] [address] Performed By: #### 5 7021-8 #### [facility] [id number] [address] [place] [address] [place] CD3 cells/100 cells (Bld) 65 % Normal 60-89 [facility] Comment on above: Order Comment: Speci men Type: BLOOD SPECIMEN Ordering Facility: [facility] Address: [address] [place] [address] Performed By: #### 5 7021-8 #### [facility] [id number] [address] [place] [address] [place] CD3+CD4+ (T4 helper) cells (Bld) [#/Vol] 576 cells/uL Normal 533-1674 [facility] Comment on above: Order Comment: Speci men Type: BLOOD SPECIMEN Ordering Facility: [facility] Address: [address] [place] [address] Performed By: #### 5 7021-8 #### [facility] [id number] [address] [place] [address] [place] CD3+CD4+ (T4 helper) cells/100 cells (Bld) 29 % Low 34-61 [facility] Comment on above: Order Comment: Speci men Type: BLOOD SPECIMEN Ordering Facility: [facility] Address: [address] [place] [address] Performed By: #### 5 7021-8 #### [facility] [id number] [address] [place] [address] [place] CD3+CD4+ (T4 helper) cells/CD3+CD8+ (T8 suppressor cells) cells (Bld) [# ratio] 0.85 % Low 1.10-3.25 [facility] Comment on above: Order Comment: Speci men Type: BLOOD SPECIMEN Ordering Facility: [facility] Address: [address] [place] [address] Performed By: #### 5 7021-8 #### [facility] [id number] [address] [place] [address] [place] CD3+CD8+ (T8 suppressor cells) cells (Bld) [#/Vol] 677 cells/uL Normal 175-958 [facility] Comment on above: Order Comment: Speci men Type: BLOOD SPECIMEN Ordering Facility: [facility] Address: [address] [place] [address] Performed By: #### 5 7021-8 #### [facility] [id number] [address] [place] [address] [place] CD3+CD8+ (T8 suppressor cells) cells/100 cells (Bld) 34 % Normal 10-41 [facility] Comment on above: Order Comment: Speci men Type: BLOOD SPECIMEN Ordering Facility: [facility] Address: [address] [place] [address] Performed By: #### 5 7021-8 #### [facility] [id number] [address] [place] [address] [place] CD3-CD16+CD56+ (Natural killer) cells (Bld) [#/Vol] 652 cells/uL High 102-565 [facility] Comment on above: Order Comment: Speci men Type: BLOOD SPECIMEN Ordering Facility: [facility] Address: [address] [place] [address] Performed By: #### 5 7021-8 #### [facility] [id number] [address] [place] [address] [place] CD3-CD16+CD56+ (Natural killer) cells/100 cells (Bld) 32 % High 5-25 [facility] Comment on above: Order Comment: Chaparro sandra Type: BLOOD SPECIMEN Ordering Facility: [facility] Address: [address] [place] [address] Performed By: #### 5 7021-8 #### [facility] [id number] [address] [place] [address] [place] CD3-CD19+ cells (Bld) [#/Vol] 16 cells/uL Low 75-660 [facility] Comment on above: Order Comment: Chaparro sandra Type: BLOOD SPECIMEN Ordering Facility: [facility] Address: [address] [place] [address] Performed By: #### 5 7021-8 #### [facility] [id number] [address] [place] [address] [place] CD3-CD19+ cells/100 cells (Bld) 1 % Low 5-22 [facility] Comment on above: Order Comment: Chaparro sandra Type: BLOOD SPECIMEN Ordering Facility: [facility] Address: [address] [place] [address] Performed By: #### 5 7021-8 #### [facility] [id number] [address] [place] [address] [place] NMDA RECEPTOR ANTIBODY, IGGo n 08-12-2023 NMDA RECEPTOR AB, IGG <1:10 Normal <1:10 [facility] Comment on above: Order Comment: Chaparro sandra Type: BLOOD SPECIMEN Ordering Facility: [facility] Address: [address] [place] [address] Result Comment: Antibodies to NMDA were not detected, no additional testing to follow. INTERPRETIVE INFORMATION: NMDA Receptor Ab IgG CBA-IFA, Serum NMDA receptor antibody is found in a subset of patients with autoimmune limbic encephalitis and may occur with or without associated tumor. Decreasing antibody levels may be associated with therapeutic response. In addition, positive results have been reported in patients with non-autoimmune phenotypes. A negative test result does not rule out a diagnosis of autoimmune limbic encephalitis. Results should be interpreted in correlation with the patient's clinical history and other laboratory findings. Serum testing should be paired with CSF testing for improved diagnostic sensitivity. This indirect fluorescent antibody assay utilizes full-length GluN1 transfected cell lines for the detection and semiquantification of NMDA receptor IgG antibody. This test was developed and its performance characteristics determined by [facility]. It has not been cleared or approved by the [place] Food and Drug Administration. This test was performed in a CLIA certified laboratory and is intended for clinical purposes. Performed By: [facility] [address] [place] [address] Cinnamon Grinder: Sabas Ortiz MD, PhD CLIA Number: [id number] Performed By: #### 7 3752-8 #### [facility] CLIA [id number] [address] [place] [address] [place] NMDA-RECEPTOR AB IFA TITERon 08-12-2023 NMDA-R AB IF TITER ASSAY, S Positive Normal <1:240 [facility] Comment on above: Order Comment: Chaparro sandra Type: BLOOD SPECIMEN Ordering Facility: [facility] Address: [address] [place] [address] Result Comment: ADDITIONAL INFORMATION This test was developed and its performance characteristics determined by [facility] in a manner consistent with CLIA requirements. This test has not been cleared or approved by the U.S. Food and Drug Administration. Test Performed by: [facility] [place] [address] Oncology Nurse Navigator: Tk Williamson M.D. Ph.D.; CLIA# [id number] Performed By: #### 7 3752-8 #### [facility] CLIA [id number] [address] [place] [address] [place] Reagin and Treponema pallidu m IgG and IgM [Interp]on 08-12-2023 T. pallidum IgG+IgM IA Ql (S) Non-Reactive Nonreactive [facility] T. pallidum IgG+IgM IA Ql (S) Non-Reactive Normal Nonreactive [facility] Comment on above: Order Comment: Chaparro sandra Type: BLOOD SPECIMEN Ordering Facility: [facility] Address: [address] [place] [address] Performed By: #### 7 3752-8 #### [facility] CLIA [id number] [address] [place] [address] [place] Reagin+T pallidum IgG+IgM Se rPl-Impon 08-12-2023 Reagin and Treponema pallidum IgG and IgM [Interp] Cannot exclude recent Treponemal infection if specimen collected within 7-10 days after appearance of suspect lesions or 2-3 weeks after an exposure. Clinical correlation is required. Normal [facility] Comment on above: Order Comment: Speci men Type: BLOOD SPECIMEN Ordering Facility: [facility] Address: [address] [place] [address] Performed By: #### 7 3752-8 #### [facility] CLIA [id number] [address] [place] [address] [place] SYPHILIS TOTAL W/REFLEXon Reagin and Treponema pallidum IgG and IgM [Interp] Cannot exclude recent Treponemal infection if specimen collected within 7-10 days after appearance of suspect lesions or 2-3 weeks after an exposure. Clinical correlation is required. [facility] VITAMIN D 25 HYDROXYon 08-11 25-hydroxyvitamin D3 [Mass/Vol] 56.6 ng/mL 31.0 - 80.0 ng/mL [facility] CNPNon 08-11-2023 CNPN Telephone ([facility] SARA PICHARDO ([id number]) 03 [facility] Date Time Provider Department 08/11/23 PARAS BOWENS During your visit today, we recorded the following information about you: Paras Bowens MD 08/11/2023 11:56 AM Signed Called patient's mother to review instructions for 24-hour urine collection. She knows the specimen is to be mailed back to the [facility] laboratory and not [facility]. Paras Bowens MD Allergies As of Date: 08/11/2023 Noted Allergy Reaction BEES 01/08/2010 10 - Anaphylaxis Date Reviewed: 08/03/2023 Reviewed by: Justice Krueger RN - Fully Assessed Prescriptions as of 08/11/2023 - perampanel (FYCOMPA) 8 mg tab(s) Take 1 tablet by mouth daily at bedtime. - docusate sodium (COLACE) 100 mg capsule Take 1 capsule by mouth two times a day. - tamsulosin (FLOMAX) 0.4 mg Take 1 capsule by mouth at bedtime as needed for up to 14 days. Take for stent discomfort - divalproex DR (DEPAKOTE) 250 mg EC tablet Take 1 tablet by mouth daily at 6 pm. daily dose 1000mg in the morning and 1250mg at night - Cholecalciferol, Vitamin D3, (VITAMIN D) 25 mcg (1,000 unit) cap Take 2 capsules by mouth once daily. - divalproex DR (DEPAKOTE) 500 mg EC tablet Take 2 tablets by mouth two times a day. daily dose 1000mg in the morning and 1250mg at night - THERAPEUTIC-M 9 mg iron-400 mcg tablet Take 1 tablet by mouth once daily. - diazePAM (VALTOCO) 20 mg/2 spray (10mg/0.1mL x2) nasal spray Use 1 [place] in each nostril as needed for seizures lasting longer than 3 minutes (For seziures > 3 minutes or 3 seizures in 30 minutes.). - guanFACINE (TENEX) 1 mg tablet Take 1 tablet by mouth once daily. - OLANZapine orally disintegrating (ZYPREXA ZYDIS) 5 mg disintegrating tablet Take 1 tablet by mouth as needed. - ibuprofen (MOTRIN) 200 mg tablet Take 2 tablets by mouth every 6 hours as needed for Pain or Fever. 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 Intractable epilepsy (HCC) [G40.919] 11/26/2016 06/01/2018 Lono-K-qepikc-D-aspar anderson (NMDA) receptor encep*10/27/2005 09/20/2021 Vitamin D deficiency [E55.9] 06/01/2018 Urinary incontinence [R32] 06/01/2018 Syncope [R55] 06/01/2018 Low blood pressure [I95.9] 06/01/2018 Pipi-P-aetpoe-D-aspar anderson (NMDA) receptor encep* Developmental delay [R62.50] 01/09/2020 Behavior problem in pediatric patient [R46.89] 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 S/P brain surgery [Z98.890] 02/12/2018 06/01/2018 Epilepsy (HCC) [G40.909] 01/13/2018 S/P craniotomy [Z98.890] 05/26/2018 Cerebral edema (HCC) [G93.6] 05/31/2018 09/20/2021 Physical deconditioning [R53.81] 06/02/2018 09/20/2021 Seizure-like activity (HCC) [R56.9] 02/04/2020 Acne [L70.9] 02/04/2020 ADHD (attention deficit hyperactivity disorder)*02/08/2021 Adjustment disorder with mixed anxiety and depr*02/08/2021 History of encephalitis [Z86.61] 11/01/2021 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 Date Time Provider Department 08/05/23 KENTRELL ABDULLAHI During your visit today, we recorded the following information about you: Vianca Estevez LPN 08/05/2023 8:23 AM Signed PA faxed to [facility]. Will await determination for approval. Vianca Charles LPN Young PSS, Aby 08/05/2023 1:01 PM Signed [facility] approval perampanel 08/05/23-08/03/24, upload Funmilayo Silva (Rn), RN 08/05/2023 4:38 PM Signed Pharmacy notified. Funmilayo Silva RN Allergies As of Date: 08/05/2023 Noted Allergy Reaction BEES 01/08/2010 10 - Anaphylaxis Date Reviewed: 08/03/2023 Reviewed by: Justice Krueger RN - Fully Assessed Reason for Visit: Insurance Authorization [[id number]] Prescriptions as of 08/05/2023 - perampanel (FYCOMPA) 8 mg tab(s) Take 1 tablet by mouth daily at bedtime. - docusate sodium (COLACE) 100 mg capsule Take 1 capsule by mouth two times a day. - tamsulosin (FLOMAX) 0.4 mg Take 1 capsule by mouth at bedtime as needed for up to 14 days. Take for stent discomfort - divalproex DR (DEPAKOTE) 250 mg EC tablet Take 1 tablet by mouth daily at 6 pm. daily dose 1000mg in the morning and 1250mg at night - Cholecalciferol, Vitamin D3, (VITAMIN D) 25 mcg (1,000 unit) cap Take 2 capsules by mouth once daily. - divalproex DR (DEPAKOTE) 500 mg EC tablet Take 2 tablets by mouth two times a day. daily dose 1000mg in the morning and 1250mg at night - THERAPEUTIC-M 9 mg iron-400 mcg tablet Take 1 tablet by mouth once daily. - diazePAM (VALTOCO) 20 mg/2 spray (10mg/0.1mL x2) nasal spray Use 1 [place] in each nostril as needed for seizures lasting longer than 3 minutes (For seziures > 3 minutes or 3 seizures in 30 minutes.). - guanFACINE (TENEX) 1 mg tablet Take 1 tablet by mouth once daily. - OLANZapine orally disintegrating (ZYPREXA ZYDIS) 5 mg disintegrating tablet Take 1 tablet by mouth as needed. - ibuprofen (MOTRIN) 200 mg tablet Take 2 tablets by mouth every 6 hours as needed for Pain or Fever. 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 Intractable epilepsy (HCC) [G40.919] 11/26/2016 06/01/2018 Inkh-L-vckqso-D-aspar anderson (NMDA) receptor encep*10/27/2005 09/20/2021 Vitamin D deficiency [E55.9] 06/01/2018 Urinary incontinence [R32] 06/01/2018 Syncope [R55] 06/01/2018 Low blood pressure [I95.9] 06/01/2018 Pwjb-N-rvcksh-D-aspar anderson (NMDA) receptor encep* Developmental delay [R62.50] 01/09/2020 Behavior problem in pediatric patient [R46.89] 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 S/P brain surgery [Z98.890] 02/12/2018 06/01/2018 Epilepsy (HCC) [G40.909] 01/13/2018 S/P craniotomy [Z98.890] 05/26/2018 Cerebral edema (HCC) [G93.6] 05/31/2018 09/20/2021 Physical deconditioning [R53.81] 06/02/2018 09/20/2021 Seizure-like activity (HCC) [R56.9] 02/04/2020 Acne [L70.9] 02/04/2020 ADHD (attention deficit hyperactivity disorder)*02/08/2021 Adjustment disorder with mixed anxiety and depr*02/08/2021 History of encephalitis [Z86.61] 11/01/2021 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 Date Time Provider Department 08/03/23 3:30 PM PARAS BOWENS UROSMN During your visit today, we recorded the following information about you: Justice Krueger RN 08/03/2023 3:04 PM Signed Actual procedure/procedure scheduled: Yes Performing provider/scheduled provider: Yes Patient was roomed in: Q9- 09 Public Relations Manager offered:Patient accepts, visit chaperoned by mother Patient arrived in the room at: 1440 Patient ready for procedure: 1447 The procedure started at ( Time Only): 1458 The procedure ended at: 1503 Was the procedure delayed: No The patient left the procedure room at: 1515 Justice Krueger RN PRE PROCEDURE ASSESSMENT- Cysto Procedure Indication: Cystoscopy and Stent Extraction Latex Allergy: No Allergies reviewed and updated. Yes Heart valve replacement: No Joint replacement: No Back Office UA otained: not applicable PROCEDURE PREP-Cysto Patient ID with two(2)identifiers verified by: Justice Krueger RN Pre-Procedure Antibiotics: None taken at home nor prior to procedure Patient Prep: Betadine Scrub to perineum and placement of Sterile Drape. COMPLETED Anesthetic Given:10 cc 2% Lidocaine jelly Justice Krueger RN UNIVERSAL PROTOCOL / SAFETY CHECKLIST Procedure to be performed: Cystoscopy and Stent Extraction Sign in Communication: Completed Time Out: Team Confirms the Correct Patient, Correct Procedure, Correct Site and Site Marking, Correct Position (if applicable). Sign Out Discussion: Completed Justice Krueger RN POST PROCEDURE NURSE ASSESSMENT Present along with physician during procedure exam. Justice Krueger RN Instruction sheet given and reviewed and patient verbalizes understanding: yes Post Procedure Antibiotic: none Current pain intensity is 0 on a 0-10 pain scale. Justice Krueger RN AMBULATORY PATIENT EDUCATION THE FOLLOWING WAS EVALUATED Motivation To Learn: Interested Family/Significant Other Support: High - Very involved in pt care Cognitive Ability: Alert/Oriented Method of Instruction: Individual instruction Written instruction - handouts Verbal instruction The Following Influencing Factors Were Barriers To This Education Session: None The Following Physical Limitations Were Barriers To This Education Session: None Instruction Provided To: Patient and family member Methods Specialist Present: not applicable Discipline: Nursing Learning Topic: SURVIVAL SKILLS: Complication Prevention Symptom Management Patient Evaluation: Verbalizes understanding: Yes Supplemental Material Given: Written Material Instructed By Justice Krueger RN In Department Urology . Justice Krueger RN 08/03/2023 3:05 PM Signed UNIVERSAL PROTOCOL / SAFETY CHECKLIST Procedure to be Performed: cystoscopy/stent extraction Sign In: A Moment of CARE was completed. Personnel directly involved with the procedure wore the appropriate PPE (Personal Protective Equipment). Patient/Surrogate Stated/Verified: PATIENT VERIFIED(optional for EMERGENT procedures): Patient name, Date of , Relevant allergies, and The intended procedure Time Out Communication: Intended patient and procedure match the source documents. Consent documented and matches the intended procedure. Relevant labs, photos, and/or imaging studies have been reviewed. No correct side/site applicable for marking and visibility. Fire risk assessed and interventions discussed. No implant(s) inserted. Sign Out: SIGN OUT (optional for EMERGENT procedures): No specimen collected. No instruments, equipment or retained foreign bodies applicable. Post-procedure follow-up management communicated and Plan of Care Visit completed when applicable. MIKE Serrato, Paras Antonio MD 08/04/2023 7:11 AM Signed CYSTOSCOPY WITH URETERAL STENT REMOVAL PROCEDURE NOTE: Sara Pichardo is a 17 year old male who presents for cystoscopy and stent removal, s/p bilateral ureteroscopy, laser lithotripsy with stent placement on July 07. He presented with bilateral ureteral obstruction and severe JONES Stone Analysis: Calcium phosphate Intraoperative Findings: Moderate bilateral stone burden Interval Hx: Frequency: No Urgency: No Dysuria: No Hematuria: No Urinary Tract Infection: No Pt ID verified with patient: Yes Procedure verified with patient: Yes Procedure confirmed with physician and emotional support teacher: Yes Sign In: History and Physical Exam reviewed and is unchanged. Primary Diagnosis: Nephrolithiasis Informed Consent Discussed: Yes Sign in Communication: Completed Time Out: Team Confirms the Correct Patient, Correct Procedure; Stent Extraction, Correct Site and Site Marking, Correct Position (if applicable). Affirmation of Time Out: YES Sign Out: Sign Out Discussion: Completed A urin (more content not included)... Normal [facility] [place] 08-03-2023 KIERANN Telephone (NEPEMN) SARA PICHARDO ([id number]) [address] [facility] Date Time Provider Department 08/03/23 KENTRELL ABDULLAHI During your visit today, we recorded the following information about you: Funmilayo SilvaRn)MIKE 08/03/2023 4:26 PM Signed FMLA form received for completion. MIKE Browne Kimberly A (Rn) RN 08/04/2023 10:05 AM Signed FMLA form completed and forwarded to Dr. Haider for signature via [employer]. MIKE Browne Kimberly A (Rn)MIKE 08/05/2023 4:13 PM Signed Signature completed and form forwarded to email on file via [employer]. Copy mailed to family. Funmilayo Silva RN Allergies As of Date: 08/03/2023 Noted Allergy Reaction BEES 01/08/2010 10 - Anaphylaxis Date Reviewed: 08/03/2023 Reviewed by: Justice Krueger RN - Fully Assessed Reason for Visit: Forms [913] Cmt: FMLA Prescriptions as of 08/05/2023 - perampanel (FYCOMPA) 8 mg tab(s) Take 1 tablet by mouth daily at bedtime. - docusate sodium (COLACE) 100 mg capsule Take 1 capsule by mouth two times a day. - tamsulosin (FLOMAX) 0.4 mg Take 1 capsule by mouth at bedtime as needed for up to 14 days. Take for stent discomfort - divalproex DR (DEPAKOTE) 250 mg EC tablet Take 1 tablet by mouth daily at 6 pm. daily dose 1000mg in the morning and 1250mg at night - Cholecalciferol, Vitamin D3, (VITAMIN D) 25 mcg (1,000 unit) cap Take 2 capsules by mouth once daily. - divalproex DR (DEPAKOTE) 500 mg EC tablet Take 2 tablets by mouth two times a day. daily dose 1000mg in the morning and 1250mg at night - THERAPEUTIC-M 9 mg iron-400 mcg tablet Take 1 tablet by mouth once daily. - diazePAM (VALTOCO) 20 mg/2 spray (10mg/0.1mL x2) nasal spray Use 1 [place] in each nostril as needed for seizures lasting longer than 3 minutes (For seziures > 3 minutes or 3 seizures in 30 minutes.). - guanFACINE (TENEX) 1 mg tablet Take 1 tablet by mouth once daily. - OLANZapine orally disintegrating (ZYPREXA ZYDIS) 5 mg disintegrating tablet Take 1 tablet by mouth as needed. - ibuprofen (MOTRIN) 200 mg tablet Take 2 tablets by mouth every 6 hours as needed for Pain or Fever. 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 Intractable epilepsy (HCC) [G40.919] 11/26/2016 06/01/2018 Alrk-I-uywpdh-D-aspar anderson (NMDA) receptor encep*10/27/2005 09/20/2021 Vitamin D deficiency [E55.9] 06/01/2018 Urinary incontinence [R32] 06/01/2018 Syncope [R55] 06/01/2018 Low blood pressure [I95.9] 06/01/2018 Murr-G-hziscu-D-aspar anderson (NMDA) receptor encep* Developmental delay [R62.50] 01/09/2020 Behavior problem in pediatric patient [R46.89] 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 S/P brain surgery [Z98.890] 02/12/2018 06/01/2018 Epilepsy (HCC) [G40.909] 01/13/2018 S/P craniotomy [Z98.890] 05/26/2018 Cerebral edema (HCC) [G93.6] 05/31/2018 09/20/2021 Physical deconditioning [R53.81] 06/02/2018 09/20/2021 Seizure-like activity (HCC) [R56.9] 02/04/2020 Acne [L70.9] 02/04/2020 ADHD (attention deficit hyperactivity disorder)*02/08/2021 Adjustment disorder with mixed anxiety and depr*02/08/2021 History of encephalitis [Z86.61] 11/01/2021 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 Malnutrition of moderate degree (HCC) [E44.0] 12/18/2021 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] 03/14/2023 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] 03/15/2023 Bilateral kidney stones [N20.0] 07/08/2023 Encounter Status:Closed by FUNMILAYO SILVA on 08/05/23 Normal [facility] Comprehensive metabolic 2000 panelon 08-03-2023 Albumin [Mass/Vol] 4.1 g/dL Normal 3.9-4.9 [facility] Comment on above: Order Comment: Speci men Type: BLOOD SPECIMEN Ordering Facility: [facility] Address: [address] [place] [address] Performed By: #### 5 7021-8 #### [facility] [id number] [address] [place] [address] [place] ALP [Catalytic activity/Vol] 73 U/L Normal 38-113 [facility] Comment on above: Order Comment: Speci men Type: BLOOD SPECIMEN Ordering Facility: [facility] Address: [address] [place] [address] Performed By: #### 5 7021-8 #### [facility] [id number] [address] [place] [address] [place] ALT [Catalytic activity/Vol] 18 U/L Normal 10-54 [facility] Comment on above: Order Comment: Speci men Type: BLOOD SPECIMEN Ordering Facility: [facility] Address: [address] [place] [address] Performed By: #### 5 7021-8 #### [facility] [id number] [address] [place] [address] [place] Anion gap [Moles/Vol] 10 mmol/L Normal 9-18 [facility] Comment on above: Order Comment: Speci men Type: BLOOD SPECIMEN Ordering Facility: [facility] Address: [address] [place] [address] Performed By: #### 5 7021-8 #### [facility] [id number] [address] [place] [address] [place] AST [Catalytic activity/Vol] 24 U/L Normal 14-40 [facility] Comment on above: Order Comment: Speci men Type: BLOOD SPECIMEN Ordering Facility: [facility] Address: [address] [place] [address] Performed By: #### 5 7021-8 #### [facility] [id number] [address] [place] [address] [place] Bilirubin [Mass/Vol] 0.3 mg/dL Normal 0.2-1.3 [facility] Comment on above: Order Comment: Speci men Type: BLOOD SPECIMEN Ordering Facility: [facility] Address: [address] [place] [address] Performed By: #### 5 7021-8 #### [facility] [id number] [address] [place] [address] [place] Calcium [Mass/Vol] 9.3 mg/dL Normal 8.5-10.2 [facility] Comment on above: Order Comment: Speci men Type: BLOOD SPECIMEN Ordering Facility: [facility] Address: [address] [place] [address] Performed By: #### 5 7021-8 #### [facility] [id number] [address] [place] [address] [place] Chloride [Moles/Vol] 106 mmol/L High 97-105 [facility] Comment on above: Order Comment: Speci men Type: BLOOD SPECIMEN Ordering Facility: [facility] Address: [address] [place] [address] Performed By: #### 5 7021-8 #### [facility] [id number] [address] [place] [address] [place] CO2 [Moles/Vol] 28 mmol/L Normal 22-30 [facility] Comment on above: Order Comment: Speci men Type: BLOOD SPECIMEN Ordering Facility: [facility] Address: [address] [place] [address] Performed By: #### 5 7021-8 #### [facility] [id number] [address] [place] [address] [place] Creatinine [Mass/Vol] 0.92 mg/dL Normal 0.73-1.22 [facility] Comment on above: Order Comment: Speci men Type: BLOOD SPECIMEN Ordering Facility: [facility] Address: [address] [place] [address] Performed By: #### 5 7021-8 #### [facility] [id number] [address] [place] [address] [place] Creatinine and Glomerular filtration rate.predicted panel (S/P/Bld) 123 mL/min/1.73m??? Normal >=60 [facility] Comment on above: Order Comment: Speci men Type: BLOOD SPECIMEN Ordering Facility: [facility] Address: [address] [place] [address] Result Comment: Krystle mated Glomerular Filtration Rate (eGFR) is calculated using the 2020 CKD-EPI creatinine equation. This equation utilizes serum creatinine, sex, and age as parameters. The creatinine assay has traceable calibration to isotope dilution-mass spectrometry. Refer to KDIGO guidelines for clinical interpretation. In patients with unstable renal function, e.g. those with acute kidney injury, the eGFR may not accurately reflect actual GFR. Performed By: #### 5 7021-8 #### [facility] [id number] [address] [place] [address] [place] Glucose [Mass/Vol] 83 mg/dL Normal 74-99 [facility] Comment on above: Order Comment: Speci men Type: BLOOD SPECIMEN Ordering Facility: [facility] Address: [address] [id number] Result Comment: The [place] [employer] (ADA) provides guidance for cutoff values for fasting glucose and random glucose. The ADA defines fasting as no caloric intake for at least 8 hours. Fasting plasma glucose results between 100 to 125 mg/dL indicate increased risk for diabetes (prediabetes). Fasting plasma glucose results greater than or equal to 126 mg/dL meet the criteria for diagnosis of diabetes. In the absence of unequivocal hyperglycemia, results should be confirmed by repeat testing. In a patient with classic symptoms of hyperglycemia or hyperglycemic crisis, random plasma glucose results greater than or equal to 200 mg/dL meet the criteria for diagnosis of diabetes. Reference: Standards of Medical Care in Diabetes 2016, [place] [employer]. Diabetes Care. 2016.39(Suppl 1). Performed By: #### 5 7021-8 #### [facility] [id number] [address] [place] [address] [place] Potassium [Moles/Vol] 4.7 mmol/L Normal 3.7-5.1 [facility] Comment on above: Order Comment: Speci men Type: BLOOD SPECIMEN Ordering Facility: [facility] Address: [address] [place] [address] Performed By: #### 5 7021-8 #### [facility] [id number] [address] [place] [address] [place] Protein [Mass/Vol] 6.8 g/dL Normal 6.3-8.0 [facility] Comment on above: Order Comment: Speci men Type: BLOOD SPECIMEN Ordering Facility: [facility] Address: [address] [place] [address] Performed By: #### 5 7021-8 #### [facility] [id number] [address] [place] [address] [place] Sodium [Moles/Vol] 144 mmol/L Normal 136-144 [facility] Comment on above: Order Comment: Speci men Type: BLOOD SPECIMEN Ordering Facility: [facility] Address: [address] [place] [address] Performed By: #### 5 7021-8 #### [facility] [place] [id number] [address] [place] [address] [place] Urea nitrogen [Mass/Vol] 12 mg/dL Normal 9-24 [facility] Comment on above: Order Comment: Speci men Type: BLOOD SPECIMEN Ordering Facility: [facility] Address: [address] [place] [address] Performed By: #### 5 7021-8 #### [facility] [place] [id number] [address] [place] [address] [place] CBC panel Auto (Bld)on 07-09 Erythrocyte distribution width (RBC) [Ratio] 13.0 % Normal 11.5-15.0 [facility] Comment on above: Order Comment: Speci men Type: BLOOD SPECIMEN Ordering Facility: [facility] Address: [address] [place] [address] Performed By: #### 5 8410-2 #### [facility] CLIA [id number] [address] [place] [address] [place] Hematocrit (Bld) [Volume fraction] 37.4 % Low 39.0-51.0 [facility] Comment on above: Order Comment: Speci men Type: BLOOD SPECIMEN Ordering Facility: [facility] Address: [address] [place] [address] Performed By: #### 5 8410-2 #### [facility] [place] [id number] [address] [place] [address] [place] Hemoglobin (Bld) [Mass/Vol] 13.1 g/dL Normal 13.0-17.0 [facility] Comment on above: Order Comment: Speci men Type: BLOOD SPECIMEN Ordering Facility: [facility] Address: [address] [place] [address] Performed By: #### 5 8410-2 #### [facility] [place] [id number] [address] [place], [place] [id number] [place] MCH (RBC) [Entitic mass] 31.8 pg Normal 26.0-34.0 [facility] Comment on above: Order Comment: Speci men Type: BLOOD SPECIMEN Ordering Facility: [facility] Address: [address] [place] [address] Performed By: #### 5 8410-2 #### [facility] CLIA [id number] [address] [place] [address] [place] MCHC (RBC) [Mass/Vol] 35.0 g/dL Normal 30.5-36.0 [facility] Comment on above: Order Comment: Speci men Type: BLOOD SPECIMEN Ordering Facility: [facility] Address: [address] [place] [address] Performed By: #### 5 8410-2 #### [facility] CLIA [id number] [address] [place] [address] [place] MCV (RBC) [Entitic vol] 90.8 fL Normal 80.0-100.0 [facility] Comment on above: Order Comment: Speci men Type: BLOOD SPECIMEN Ordering Facility: [facility] Address: [address] [place] [address] Performed By: #### 5 8410-2 #### [facility] CLIA [id number] [address] [place] [address] [place] Nucleated RBC (Bld) [#/Vol] 10*3/uL Normal <0.01 [facility] Comment on above: Order Comment: Speci men Type: BLOOD SPECIMEN Ordering Facility: [facility] Address: [address] [place] [address] Performed By: #### 5 8410-2 #### [facility] CLIA [id number] [address] [place] [address] [place] Platelet mean volume (Bld) [Entitic vol] 10.9 fL Normal 9.0-12.7 [facility] Comment on above: Order Comment: Speci men Type: BLOOD SPECIMEN Ordering Facility: [facility] Address: [address] [place] [address] Performed By: #### 5 8410-2 #### [facility] CLIA [id number] [address] [place] [address] [place] Platelets (Bld) [#/Vol] 84 10*3/uL Low 150-400 [facility] Comment on above: Order Comment: Speci men Type: BLOOD SPECIMEN Ordering Facility: [facility] Address: [address] [place] [address] Result Comment: No c lot detected. Performed By: #### 5 8410-2 #### [facility] CLIA [id number] [address] [place] [address] [place] RBC (Bld) [#/Vol] 4.12 10*6/uL Low 4.20-6.00 [facility] Comment on above: Order Comment: Speci men Type: BLOOD SPECIMEN Ordering Facility: [facility] Address: [address] [place] [address] Performed By: #### 5 8410-2 #### [facility] CLIA [id number] [address] [place] [address] [place] WBC (Bld) [#/Vol] 3.67 10*3/uL Low 3.70-11.00 [facility] Comment on above: Order Comment: Speci men Type: BLOOD SPECIMEN Ordering Facility: [facility] Address: [address] [place] [address] Performed By: #### 5 8410-2 #### [facility] CLIA [id number] [address] [place] [address] [place] CNDSon 07-10-2023 CNDS HNO ID: [id number] Author: ЮЛИЯ CORNEJO MD Service: Urology Author Type: Resident Type: Discharge Summary Filed: 07/12/2023 09:04 Note Text: Attestation signed by Юлия Cornejo MD at 07/12/2023 9:04 AM I Discussed with the resident and agree with resident's findings and plan as documented in the resident's note. I was not present in the encounter [facility] [place] [phone] or ([phone]) [facility] [place] [facility] I [facility] E N T I A L I N F O R M A T I O N STANDARD [facility] DOCUMENT DISCHARGE SUMMARY Patient Name: Sara Pichardo Patient Admission Date: 07/08/2023 Discharge Date: 07/10/2023 Attending Physician: Юлия Cornejo,* Principal Diagnosis: Patient Active Hospital Problem List: Bilateral kidney stones (07/08/2023) Operations During Hospitalization: CYSTOSCOPY WITH URETEROSCOPY WITH REMOVAL OR MANIPULATION OF URETERAL CALCULI: 25457 (CPT?) CYSTOSCOPY, INSERTION STENT URETERAL J: 66337 (CPT?) Procedures Performed While Hospitalized: Intubation Reason for Hospitalization: 17 year old male with history of seizure disorder and , NMDA receptor encephalitis (age 1), and urinary incontinence who presents as transfer from OSH for bilateral obstructive uropathy ( R - 5mm UPJ stone, and L 5mm UPJ stone and multiple other nonobstructive stones bilaterally). Hospital Course: The patient was admitted to the hospital as transfer from OSH for evaluation of bilateral kidney stones. On 07/07 the patient underwent the above procedure(s) (please see separately dictated operative report for full details of the procedure). Patient tolerated the procedure well and post-operatively was transferred to PACU and ultimately to a regular nursing unit. Patient was transitioned to oral pain medication as well as restarted on prior to admission medications, and diet was advanced as tolerated. Activity level was gradually increased. Granado catheter was removed on POD1 and the patient voided afterwards. Neurology saw the patient while he was inpatient given he missed a scheduled infusion of anti-epileptic medications and he was started on new medications and with a plan to titrate down on his topiramate. He was ultimately kept overnight POD1 per neurology recommendations to watch out for seizure like activity and he was seizure free, and was ultimately weaned off topiramate. On POD2, the patient was tolerating a diet, ambulating, and had good pain control. The patient was discharged in stable condition to home with instructions to follow up as scheduled. He will take keflex antibiotics for 5 days and will follow up for cystoscopy and stent removal in two weeks. Patient Condition at Discharge: Stable Discharge Disposition: Home Information Provided to the Patient: Patient was given a copy of Discharge Instructions Discharge Medications: Medication List START taking these medications cephALEXin 250 mg capsule Commonly known as: KEFLEX Take 1 capsule by mouth three times a day for 5 days. perampanel 8 mg tab(s) Commonly known as: FYCOMPA Take 1 tablet by mouth daily at bedtime for 90 days. tamsulosin 0.4 mg Commonly known as: FLOMAX Take 1 capsule by mouth at bedtime as needed for up to 14 days. Take for stent discomfort CONTINUE taking these medications Cholecalciferol (Vitamin D3) 25 mcg (1,000 unit) Cap Commonly known as: Vitamin D Take 2 capsules by mouth once daily. * divalproex DR 250 mg EC tablet Commonly known as: DEPAKOTE Take 1 tablet by mouth daily at 6 pm. daily dose 1000mg in the morning and 1250mg at night * divalproex DR 500 mg EC tablet Commonly known as: DEPAKOTE Take 2 tablets by mouth two times a day. daily dose 1000mg in the morning and 1250mg at night docusate sodium 100 mg capsule Commonly known as: COLACE Take 1 capsule by mouth twice daily. guanFACINE 1 mg tablet Commonly known as: TENEX Take 1 tablet by mouth once daily. ibuprofen 200 mg tablet Commonly known as: MOTRIN Take 2 tablets by mouth every 6 hours as needed for Pain or Fever. OLANZapine orally disintegrating 5 mg disintegrating tablet Commonly known as: ZyPREXA Zydis Take 1 tablet by mouth as needed. THERAPEUTIC-M 9 mg iron-400 mcg tablet Generic drug: therapeutic multivitamin-minerals Take 1 tablet by mouth once daily. VALTOCO 20 mg/2 spray (10mg/0.1mL x2) nasal spray Generic drug: diazePAM Use 1 [place] in each nostril as needed for seizures lasting longer than 3 minutes (For seziures > 3 minutes or 3 seizures in 30 minutes.). * This list has 2 medication (more content not included)... Normal [facility] Comprehensive metabolic 2000 panelon 07-10-2023 Albumin [Mass/Vol] 3.0 g/dL Low 3.9-4.9 [facility] Comment on above: Order Comment: Speci men Type: BLOOD SPECIMEN Ordering Facility: [facility] Address: [address] [place] [address] Performed By: #### 2 4323-8 #### [facility] CLIA [id number] [address] [place] [address] [place] ALP [Catalytic activity/Vol] 48 U/L Normal 38-113 [facility] Comment on above: Order Comment: Speci men Type: BLOOD SPECIMEN Ordering Facility: [facility] Address: [address] [place] [address] Performed By: #### 2 4323-8 #### [facility] CLIA [id number] [address] [place] [id number] [address] [place] ALT [Catalytic activity/Vol] 30 U/L Normal 10-54 [facility] Comment on above: Order Comment: Speci men Type: BLOOD SPECIMEN Ordering Facility: [facility] Address: [address] [place] [address] Performed By: #### 2 4323-8 #### [facility] CLIA [id number] [address] [place] [address] [place] Anion gap [Moles/Vol] 8 mmol/L Low 9-18 [facility] Comment on above: Order Comment: Speci men Type: BLOOD SPECIMEN Ordering Facility: [facility] Address: [address] [place] [address] Performed By: #### 2 4323-8 #### [facility] CLIA [id number] [address] [place] [address] [place] AST [Catalytic activity/Vol] 28 U/L Normal 14-40 [facility] Comment on above: Order Comment: Speci men Type: BLOOD SPECIMEN Ordering Facility: [facility] Address: [address] [place] [address] Performed By: #### 2 4323-8 #### [facility] CLIA [id number] [address] [place] [address] [place] Bilirubin [Mass/Vol] 0.3 mg/dL Normal 0.2-1.3 [facility] Comment on above: Order Comment: Speci men Type: BLOOD SPECIMEN Ordering Facility: [facility] Address: [address] [place], [place] [address] Performed By: #### 2 4323-8 #### [facility] CLIA [id number] [address] [place] [address] [place] Calcium [Mass/Vol] 8.7 mg/dL Normal 8.5-10.2 [facility] Comment on above: Order Comment: Speci men Type: BLOOD SPECIMEN Ordering Facility: [facility] Address: [address] [place] [address] Performed By: #### 2 4323-8 #### [facility] CLIA [id number] [facility] [place] [address] [place] Chloride [Moles/Vol] 113 mmol/L High 97-105 [facility] Comment on above: Order Comment: Speci men Type: BLOOD SPECIMEN Ordering Facility: [facility] Address: [address] [place] [address] Performed By: #### 2 4323-8 #### [facility] CLIA [id number] [address] [place] [address] [place] CO2 [Moles/Vol] 21 mmol/L Low 22-30 [facility] Comment on above: Order Comment: Speci men Type: BLOOD SPECIMEN Ordering Facility: [facility] Address: [address] [place] [address] Performed By: #### 2 4323-8 #### [facility] CLIA [id number] [address] [place] [address] [place] Creatinine [Mass/Vol] 1.07 mg/dL Normal 0.73-1.22 [facility] Comment on above: Order Comment: Speci men Type: BLOOD SPECIMEN Ordering Facility: [facility] Address: [address] [place] [address] Performed By: #### 2 4323-8 #### [facility] CLIA [id number] [address] [place] [address] [place] Creatinine and Glomerular filtration rate.predicted panel (S/P/Bld) 103 mL/min/1.73m??? Normal >=60 [facility] Comment on above: Order Comment: Speci men Type: BLOOD SPECIMEN Ordering Facility: [facility] Address: [address] [place] [address] Result Comment: Krystle mated Glomerular Filtration Rate (eGFR) is calculated using the 2020 CKD-EPI creatinine equation. This equation utilizes serum creatinine, sex, and age as parameters. The creatinine assay has traceable calibration to isotope dilution-mass spectrometry. Refer to KDIGO guidelines for clinical interpretation. In patients with unstable renal function, e.g. those with acute kidney injury, the eGFR may not accurately reflect actual GFR. Performed By: #### 2 4323-8 #### [facility] CLIA [id number] [address] [place] [address] [place] Glucose [Mass/Vol] 84 mg/dL Normal 74-99 [facility] Comment on above: Order Comment: Chap[place] sandra Type: BLOOD SPECIMEN Ordering Facility: [facility] Address: [address] [place] [address] Result Comment: The [place] [employer] (ADA) provides guidance for cutoff values for fasting glucose and random glucose. The ADA defines fasting as no caloric intake for at least 8 hours. Fasting plasma glucose results between 100 to 125 mg/dL indicate increased risk for diabetes (prediabetes). Fasting plasma glucose results greater than or equal to 126 mg/dL meet the criteria for diagnosis of diabetes. In the absence of unequivocal hyperglycemia, results should be confirmed by repeat testing. In a patient with classic symptoms of hyperglycemia or hyperglycemic crisis, random plasma glucose results greater than or equal to 200 mg/dL meet the criteria for diagnosis of diabetes. Reference: Standards of Medical Care in Diabetes 2016, [place] [employer]. Diabetes Care. 2016.39(Suppl 1). Performed By: #### 2 4323-8 #### [facility] CLIA [id number] [address] [place] [address] [place] Potassium [Moles/Vol] 3.8 mmol/L Normal 3.7-5.1 [facility] Comment on above: Order Comment: Chaparro men Type: BLOOD SPECIMEN Ordering Facility: [facility] Address: [address] [place], [place] [address] Performed By: #### 2 4323-8 #### [facility] CLIA [id number] [address] [place] [address] [place] Protein [Mass/Vol] 5.4 g/dL Low 6.3-8.0 [facility] Comment on above: Order Comment: Speci men Type: BLOOD SPECIMEN Ordering Facility: [facility] Address: [address] [place] [address] Performed By: #### 2 4323-8 #### [facility] CLIA [id number] [address] [place] [address] [place] Sodium [Moles/Vol] 142 mmol/L Normal 136-144 [facility] Comment on above: Order Comment: Speci men Type: BLOOD SPECIMEN Ordering Facility: [facility] Address: [address] [place] [address] Performed By: #### 2 4323-8 #### [facility] CLIA [id number] [address] [place] [address] [place] Urea nitrogen [Mass/Vol] 20 mg/dL Normal 9-24 [facility] Comment on above: Order Comment: Speci men Type: BLOOD SPECIMEN Ordering Facility: [facility] Address: [address] [place] [address] Performed By: #### 2 4323-8 #### [facility] CLIA [id number] [address] [place] [address] [place] CBC panel Auto (Bld)on 07-08 Erythrocyte distribution width (RBC) [Ratio] 13.0 % Normal 11.5-15.0 [facility] Comment on above: Order Comment: Speci men Type: BLOOD SPECIMEN Ordering Facility: [facility] Address: [address] [place] [address] Performed By: #### 7 3752-8 #### [facility] CLIA [id number] [address] [place] [address] [place] Hematocrit (Bld) [Volume fraction] 41.7 % Normal 39.0-51.0 [facility] Comment on above: Order Comment: Speci men Type: BLOOD SPECIMEN Ordering Facility: [facility] Address: [address] [place] [address] Performed By: #### 7 3752-8 #### [facility] CLIA [id number] [address] [place] [address] [place] Hemoglobin (Bld) [Mass/Vol] 14.5 g/dL Normal 13.0-17.0 [facility] Comment on above: Order Comment: Speci men Type: BLOOD SPECIMEN Ordering Facility: [facility] Address: [address] [place], [place] [id number] Performed By: #### 7 3752-8 #### [facility] CLIA [id number] [address] [place] [address] [place] MCH (RBC) [Entitic mass] 31.9 pg Normal 26.0-34.0 [facility] Comment on above: Order Comment: Speci men Type: BLOOD SPECIMEN Ordering Facility: [facility] Address: [address] [place] [address] Performed By: #### 7 3752-8 #### [facility] CLIA [id number] [address] [place] [address] [place] MCHC (RBC) [Mass/Vol] 34.8 g/dL Normal 30.5-36.0 [facility] Comment on above: Order Comment: Speci men Type: BLOOD SPECIMEN Ordering Facility: [facility] Address: [address] [place], [place] [address] Performed By: #### 7 3752-8 #### [facility] CLIA [id number] [address] [place] [address] [place] MCV (RBC) [Entitic vol] 91.6 fL Normal 80.0-100.0 [facility] Comment on above: Order Comment: Speci men Type: BLOOD SPECIMEN Ordering Facility: [facility] Address: [address] [place], [place] [address] Performed By: #### 7 3752-8 #### [facility] CLIA [id number] [address] [place] [address] [place] Nucleated RBC (Bld) [#/Vol] 10*3/uL Normal <0.01 [facility] Comment on above: Order Comment: Speci men Type: BLOOD SPECIMEN Ordering Facility: [facility] Address: [address] [place], [place] [address] Performed By: #### 7 3752-8 #### [facility] CLIA [id number] [address] [place] [address] [place] Platelet mean volume (Bld) [Entitic vol] 11.0 fL Normal 9.0-12.7 [facility] Comment on above: Order Comment: Speci men Type: BLOOD SPECIMEN Ordering Facility: [facility] Address: [address] [place], [place] [address] Performed By: #### 7 3752-8 #### [facility] CLIA [id number] [address] [place] [address] [place] Platelets (Bld) [#/Vol] 95 10*3/uL Low 150-400 [facility] Comment on above: Order Comment: Speci men Type: BLOOD SPECIMEN Ordering Facility: [facility] Address: [address] [place], [place] [address] Result Comment: Resu lts checked and verified.No clot detected. Performed By: #### 7 3752-8 #### [facility] CLIA [id number] [address] [place] [address] [place] RBC (Bld) [#/Vol] 4.55 10*6/uL Normal 4.20-6.00 [facility] Comment on above: Order Comment: Speci men Type: BLOOD SPECIMEN Ordering Facility: [facility] Address: [address] [place], [place] [address] Performed By: #### 7 3752-8 #### [facility] CLIA [id number] [address] [place] [address] [place] WBC (Bld) [#/Vol] 6.82 10*3/uL Normal 3.70-11.00 [facility] Comment on above: Order Comment: Speci men Type: BLOOD SPECIMEN Ordering Facility: [facility] Address: [address] [place] [id number] Performed By: #### 7 3752-8 #### [facility] CLIA [id number] [address] [place] [address] [place] CNCOon 07-09-2023 CNCO Letter Text Normal [facility] Comprehensive metabolic 2000 panelon 07-09-2023 Albumin [Mass/Vol] 3.1 g/dL Low 3.9-4.9 [facility] Comment on above: Order Comment: Speci men Type: BLOOD SPECIMEN Ordering Facility: [facility] Address: [facility] [place] [address] Performed By: #### 5 7021-8 #### [facility] CLIA [id number] [address] [place] [address] [place] ALP [Catalytic activity/Vol] 50 U/L Normal 38-113 [facility] Comment on above: Order Comment: Speci men Type: BLOOD SPECIMEN Ordering Facility: [facility] Address: [address] [place] [address] Performed By: #### 5 7021-8 #### [facility] CLIA [id number] [address] [place] [address] [place] ALT [Catalytic activity/Vol] 36 U/L Normal 10-54 [facility] Comment on above: Order Comment: Speci men Type: BLOOD SPECIMEN Ordering Facility: [facility] Address: [address] [place] [address] Performed By: #### 5 7021-8 #### [facility] CLIA [id number] [address] [place] [address] [place] Anion gap [Moles/Vol] 11 mmol/L Normal 9-18 [facility] Comment on above: Order Comment: Speci men Type: BLOOD SPECIMEN Ordering Facility: [facility] Address: [address] [place] [address] Performed By: #### 5 7021-8 #### [facility] [id number] [address] [place] [address] [place] AST [Catalytic activity/Vol] 37 U/L Normal 14-40 [facility] Comment on above: Order Comment: Speci men Type: BLOOD SPECIMEN Ordering Facility: [facility] Address: [address] [place] [address] Performed By: #### 5 7021-8 #### [facility] [id number] [address] [place] [address] [place] Bilirubin [Mass/Vol] 0.3 mg/dL Normal 0.2-1.3 [facility] Comment on above: Order Comment: Speci men Type: BLOOD SPECIMEN Ordering Facility: [facility] Address: [address] [place] [address] Performed By: #### 5 7021-8 #### [facility] [id number] [address] [place] [address] [place] Calcium [Mass/Vol] 8.2 mg/dL Low 8.5-10.2 [facility] Comment on above: Order Comment: Speci men Type: BLOOD SPECIMEN Ordering Facility: [facility] Address: [address] [place] [address] Performed By: #### 5 7021-8 #### [facility] [id number] [address] [place] [address] [place] Chloride [Moles/Vol] 112 mmol/L High 97-105 [facility] Comment on above: Order Comment: Speci men Type: BLOOD SPECIMEN Ordering Facility: [facility] Address: [address] [place] [address] Performed By: #### 5 7021-8 #### [facility] [id number] [address] [id number] [address] [place] CO2 [Moles/Vol] 18 mmol/L Low 22-30 [facility] Comment on above: Order Comment: Speci men Type: BLOOD SPECIMEN Ordering Facility: [facility] Address: [address] [place] [address] Performed By: #### 5 7021-8 #### [facility] [place] [id number] [address] [place] [address] [place] Creatinine [Mass/Vol] 1.96 mg/dL High 0.73-1.22 [facility] Comment on above: Order Comment: Speci men Type: BLOOD SPECIMEN Ordering Facility: [facility] Address: [address] [place] [address] Performed By: #### 5 7021-8 #### [facility] [id number] [address] [place] [address] [place] Creatinine and Glomerular filtration rate.predicted panel (S/P/Bld) 50 mL/min/1.73m??? Low >=60 [facility] Comment on above: Order Comment: Speci men Type: BLOOD SPECIMEN Ordering Facility: [facility] Address: [address] [place] [address] Result Comment: Krystle mated Glomerular Filtration Rate (eGFR) is calculated using the 2020 CKD-EPI creatinine equation. This equation utilizes serum creatinine, sex, and age as parameters. The creatinine assay has traceable calibration to isotope dilution-mass spectrometry. Refer to KDIGO guidelines for clinical interpretation. In patients with unstable renal function, e.g. those with acute kidney injury, the eGFR may not accurately reflect actual GFR. Performed By: #### 5 7021-8 #### [facility] [id number] [address] [place] [address] [place] Glucose [Mass/Vol] 85 mg/dL Normal 74-99 [facility] Comment on above: Order Comment: Speci men Type: BLOOD SPECIMEN Ordering Facility: [facility] Address: [address] [place] [address] Result Comment: The [place] [employer] (ADA) provides guidance for cutoff values for fasting glucose and random glucose. The ADA defines fasting as no caloric intake for at least 8 hours. Fasting plasma glucose results between 100 to 125 mg/dL indicate increased risk for diabetes (prediabetes). Fasting plasma glucose results greater than or equal to 126 mg/dL meet the criteria for diagnosis of diabetes. In the absence of unequivocal hyperglycemia, results should be confirmed by repeat testing. In a patient with classic symptoms of hyperglycemia or hyperglycemic crisis, random plasma glucose results greater than or equal to 200 mg/dL meet the criteria for diagnosis of diabetes. Reference: Standards of Medical Care in Diabetes 2016, [place] [employer]. Diabetes Care. 2016.39(Suppl 1). Performed By: #### 5 7021-8 #### [facility] [id number] [address] [place] [address] [place] Potassium [Moles/Vol] 3.8 mmol/L Normal 3.7-5.1 [facility] Comment on above: Order Comment: Speci men Type: BLOOD SPECIMEN Ordering Facility: [facility] Address: [address] [place] [address] Performed By: #### 5 7021-8 #### [facility] [id number] [address] [place] [address] [place] Protein [Mass/Vol] 5.6 g/dL Low 6.3-8.0 [facility] Comment on above: Order Comment: Speci men Type: BLOOD SPECIMEN Ordering Facility: [facility] Address: [address] [place] [address] Performed By: #### 5 7021-8 #### [facility] [id number] [address] [place] [address] [place] Sodium [Moles/Vol] 141 mmol/L Normal 136-144 [facility] Comment on above: Order Comment: Speci men Type: BLOOD SPECIMEN Ordering Facility: [facility] Address: [address] [place] [address] Performed By: #### 5 7021-8 #### [facility] [id number] [address] [place] [address] [place] Urea nitrogen [Mass/Vol] 30 mg/dL High 9-24 [facility] Comment on above: Order Comment: Speci men Type: BLOOD SPECIMEN Ordering Facility: [facility] Address: [address] [place] [address] Performed By: #### 5 7021-8 #### [facility] [id number] [address] [place] [address] [place] Valproate SerPl-ncon 07-08 Valproate [Mass/Vol] 65.6 ug/mL Normal 50.0-100.0 [facility] Comment on above: Order Comment: Speci men Type: BLOOD SPECIMEN Ordering Facility: [facility] Address: [address] [place] [address] Result Comment: Refe rence ranges and high/low indicator flags are provided as general guidelines only. The treating physician must determine appropriate target levels/dosing based on the specific clinical situation. Performed By: #### 5 7021-8 #### [facility] [id number] [address] [place] [address] [place] ANES POSTPROC EVALon 024 ANES POSTPROC EVAL HNO ID: [id number] Author: HUGO BRAVO MD Service: ? Author Type: Anesthesiologist Type: Anesthesia Postprocedure Evaluation Filed: 07/08/2023 12:26 Note Text: POST ANESTHESIA EVALUATION NOTE : 2005 Procedure Summary Date: 07/08/23 Room / Location: [address] [facility] Anesthesia Start: 0832 Anesthesia Stop: 1114 Procedures: CYSTOSCOPY WITH URETEROSCOPY WITH REMOVAL OR MANIPULATION OF URETERAL CALCULI (Bilateral: Arm) CYSTOSCOPY, INSERTION STENT URETERAL J (Bilateral: Arm) Diagnosis: Bilateral nephrolithiasis (Bilateral nephrolithiasis [N20.0]) Surgeons: Paras Bowens MD Responsible Provider: Nuris Alejandro MD Anesthesia Type: general ASA Status: 3 Anesthesia Type: general Airway Type: ETT Last Vitals Vitals Value Taken Time BP 118/63 07/08/23 1215 Temp 36.4 ?C (97.5 ?F) 07/08/23 1215 Pulse 51 07/08/23 1225 Resp 12 07/08/23 1215 SpO2 100 % 07/08/23 1225 Vitals shown include unfiled device data. Post Anesthesia Patient Status Patient Evaluation: PACU. PACU/ICU Patient Condition: stable. Neurological Status: aware and responsive. Pulmonary Status: breathing comfortably on supplemental oxygen Airway Control: returned to baseline unsupported. Cardiovascular Status: stable. Pain Management: clinically adequate Postoperative Hydration: acceptable. Intraoperative Events: no significant anesthesia events Post Operative Nausea/Vomiting Status: no significant post operative nausea or vomiting Recommendation: continue current plan of care, further care per PACU/ICU/floor team and pain control. Anesthesia Observations No Documentation SIGNATURE: Hugo Bravo MD PATIENT NAME: Sara Pichardo DATE: July 08, 2023 TIME: 12:26 PM CSN: [id number] Normal [facility] ANES PRE-OPon 07-08-2023 ANES PRE-OP HNO ID: [id number] Author: MAREK ACHARYA MD Service: ? Author Type: Anesthesiologist Type: Anesthesia Preprocedure Evaluation Filed: 07/08/2023 08:41 Note Text: ANESTHESIOLOGY DAY OF SURGERY NOTE : 2003 Procedure Information Anesthesia Start Date/Time: 07/08/23 0832 Procedures: CYSTOSCOPY WITH URETEROSCOPY WITH REMOVAL OR MANIPULATION OF URETERAL CALCULI (Bilateral: Arm) CYSTOSCOPY, INSERTION STENT URETERAL J (Bilateral: Arm) Location: MAIN OR / [facility] Surgeons: Paras Bowens MD Estimated body mass index is 21.47 kg/m? as calculated from the following: Height as of this encounter: 182.9 cm (6'). Weight as of 06/26/23: 71.8 kg (158 lb 4.6 oz). 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 Tracheostomy tube not present Mallampati: II. TM distance: >3 FB. Neck ROM: full ROM without neurological symptoms. Mouth opening: adequate. Short neck: no. Thick neck: no II - ANESTHESIA PLAN ASA Score: 3 Anesthetic Plan: general Airway type: ETT NPO Status: adequate Beta Jez Monitoring Plan Monitoring plan: standard ASA. Post Procedure Analgesic Plan Postoperative analgesic plan: multimodal analgesia. Informed Consent Anesthetic risks, benefits, alternatives, personnel and consent discussed: yes. Patient / Responsible Constitution Party agrees to proceed: yes Patient / Surrogate agrees to blood products: Yes Significant changes in the patient condition since the History and Physical, not otherwise documented in primary service progress note: no. Potential Anesthesia issues that may suggest increased risk of complications or contraindication to planned procedure: other. No vitals data found for the desired time range. Facility-Administered Medications as of 07/08/2023 Medication Dose Route Frequency - docusate sodium 100 mg cap(s) (COLACE) 100 mg ORAL BID - NaCl 0.9% iv flush bag 20 mL INTRAVENOUS PRN - lactated ringers iv infusion 75 mL/hr INTRAVENOUS CONTINUOUS - ondansetron (PF) 4 mg injection (ZOFRAN) 4 mg INTRAVENOUS q 6 H PRN - bisacodyl 10 mg suppository (DULCOLAX) 10 mg RECTAL DAILY PRN - magnesium hydroxide 400 mg/5 mL 30 mL (MOM) 30 mL ORAL DAILY PRN - melatonin 3 mg tab(s) 3 mg ORAL DAILY (8 PM) - phenol 1 [place] (CHLORASEPTIC) 1 [place] MUCOUS MEMBRANE (TOPICAL MOUTH AND THROAT) q 2 H PRN - simethicone, chewable 80 mg tab(s) (MYLICON) 80 mg ORAL q 8 H PRN - HYDROmorphone 0.2 mg injection (DILAUDID) 0.2 mg INTRAVENOUS q 6 H PRN - acetaminophen 1,000 mg tab(s) (TYLENOL) 1,000 mg ORAL q 6 H - oxyCODONE IR 5 mg tab(s) (ROXICODONE) 5 mg ORAL q 6 H PRN - divalproex DR 1,000 mg tab(s) (DEPAKOTE) 1,000 mg ORAL DAILY - divalproex DR (DEPAKOTE) tab(s) 1,250 mg 1,250 mg ORAL DAILY AT 6 PM - topiramate XR (TROKENDI XR) cap(s) 850 mg 850 mg ORAL AT BEDTIME - OLANZapine orally disintegrating 5 mg tab(s) (ZYPREXA ZYDIS) 5 mg ORAL DAILY PRN - cefTRIAXone 1 g in D5W 100 mL Vial-Bag (ROCEPHIN) 1 g INTRAVENOUS q 24 H Outpatient Medications as of 07/08/2023 Medication Sig - topiramate XR (QUDEXY XR) 100 mg cap(s) Take 8 capsules by mouth daily at bedtime. Take with one 50 mg capsule = total dose 850 mg at bedtime - topiramate XR (QUDEXY XR) 50 mg cap(s) Take 1 capsule by mouth daily at bedtime. - divalproex DR (DEPAKOTE) 250 mg EC tablet Take 1 tablet by mouth daily at 6 pm. daily dose 1000mg in the morning and 1250mg at night - Cholecalciferol, Vitamin D3, (VITAMIN D) 25 mcg (1,000 unit) cap Take 2 capsules by mouth once daily. - divalproex DR (DEPAKOTE) 500 mg EC tablet Take 2 tablets by mouth two times a day. daily dose 1000mg in the morning and 1250mg at night - THERAPEUTIC-M 9 mg iron-400 mcg tablet Take 1 tablet by mouth once daily. - diazePAM (VALTOCO) 20 mg/2 spray (10mg/0.1mL x2) nasal spray Use 1 [place] in each nostril as needed for seizures lasting longer than 3 minutes (For seziures > 3 minutes or 3 seizures in 30 minutes.). - guanFACINE (TENEX) 1 mg tablet Take 1 tablet by mouth once daily. - OLANZapine orally disintegrating (ZYPREXA ZYDIS) 5 mg disintegrating tablet Take 1 tablet by mouth as needed. - ibuprofen (MOTRIN) 200 mg tablet Take 2 tablets by mouth every 6 hours as needed for Pain or Fever. - docusate sodium (COLACE) 100 mg capsule Take 1 capsule by mouth twice daily. - topiramate XR (QUDEXY XR) 200 mg cap(s) Take 4 capsules by mouth daily at bedtime. daily dose is 850mg I have interviewed and examined the patient. I have reviewe (more content not included)... Normal [facility] Basic metabolic 2000 panelon 07-08-2023 Anion gap [Moles/Vol] 12 mmol/L Normal 9-18 [facility] Comment on above: Order Comment: Speci men Type: BLOOD SPECIMENOrdering Facility: [facility] Address: [address] [place] [address] Performed By: #### 2 4321-2 ####[facility] [id number] [place] [address] [place] Calcium [Mass/Vol] 8.5 mg/dL Normal 8.5-10.2 [facility] Comment on above: Order Comment: Speci men Type: BLOOD SPECIMENOrdering Facility: [facility] Address: [address] [place] [address] Performed By: #### 2 4321-2 ####[facility] [id number] [place] [address] [place] Chloride [Moles/Vol] 113 mmol/L High 97-105 [facility] Comment on above: Order Comment: Speci men Type: BLOOD SPECIMENOrdering Facility: [facility] Address: [address] [place] [address] Performed By: #### 2 4321-2 ####[facility] [id number] [place] [address] [place] CO2 [Moles/Vol] 12 mmol/L Low 22-30 [facility] Comment on above: Order Comment: Speci men Type: BLOOD SPECIMENOrdering Facility: [facility] Address: [address] [place] [address] Performed By: #### 2 4321-2 ####[facility] [id number] [place] [id number] [place] Creatinine [Mass/Vol] 4.51 mg/dL High 0.73-1.22 [facility] Comment on above: Order Comment: Chaparro sandra Type: BLOOD SPECIMENOrdering Facility: [facility] Address: [address] [place] [address] Performed By: #### 2 4321-2 ####[facility] [id number] [place] [address] [place] Creatinine and Glomerular filtration rate.predicted panel (S/P/Bld) 18 mL/min/1.73m??? Low >=60 [facility] Comment on above: Order Comment: Chaparro sandra Type: BLOOD SPECIMENOrdering Facility: [facility] Address: [address] [place] [address] Result Comment: Krystle mated Glomerular Filtration Rate (eGFR) is calculated using the 2020 CKD-EPI creatinine equation. This equation utilizes serum creatinine, sex, and age as parameters. The creatinine assay has traceable calibration to isotope dilution-mass spectrometry. Refer to KDIGO guidelines for clinical interpretation. In patients with unstable renal function, e.g. those with acute kidney injury, the eGFR may not accurately reflect actual GFR. Performed By: #### 2 4321-2 ####[facility] [id number] [place] [address] [place] Glucose [Mass/Vol] 89 mg/dL Normal 74-99 [facility] Comment on above: Order Comment: Chaparro sandra Type: BLOOD SPECIMENOrdering Facility: [facility] [facility] Address: [address] [place] [address] Result Comment: The [place] [employer] (ADA) provides guidance for cutoff values for fasting glucose and random glucose. The ADA defines fasting as no caloric intake for at least 8 hours. Fasting plasma glucose results between 100 to 125 mg/dL indicate increased risk for diabetes (prediabetes). Fasting plasma glucose results greater than or equal to 126 mg/dL meet the criteria for diagnosis of diabetes. In the absence of unequivocal hyperglycemia, results should be confirmed by repeat testing. In a patient with classic symptoms of hyperglycemia or hyperglycemic crisis, random plasma glucose results greater than or equal to 200 mg/dL meet the criteria for diagnosis of diabetes. Reference: Standards of Medical Care in Diabetes 2016, [place] [employer]. Diabetes Care. 2016.39(Suppl 1). Performed By: #### 2 4321-2 ####[facility] LABCLIA [id number] [place] [address] [place] Potassium [Moles/Vol] Normal [facility] Comment on above: Order Comment: Speci men Type: BLOOD SPECIMENOrdering Facility: [facility] Address: [address] [place] [address] Result Comment: Unab le to assay due to interference from hemolysis. Suggest reorder as clinically indicated. Performed By: #### 2 4321-2 ####[facility] LABIA [id number] [place] [address] [place] Sodium [Moles/Vol] 137 mmol/L Normal 136-144 [facility] Comment on above: Order Comment: Speci men Type: BLOOD SPECIMENOrdering Facility: [facility] Address: [address] [place] [address] Performed By: #### 2 4321-2 ####[facility] LABIA [id number] [place] [address] [place] Urea nitrogen [Mass/Vol] 32 mg/dL High 9-24 [facility] Comment on above: Order Comment: Speci men Type: BLOOD SPECIMENOrdering Facility: [facility] Address: [address] [place] [address] Performed By: #### 2 4321-2 ####[facility] LABCLIA [id number] [place] [address] [place] Anion gap [Moles/Vol] 14 mmol/L Normal 9-18 [facility] Comment on above: Order Comment: Speci men Type: BLOOD SPECIMEN Ordering Facility: [facility] Address: [address] [place] [address] Performed By: #### 5 7021-8 #### [facility] [id number] [address] [place] [address] [place] Calcium [Mass/Vol] 8.2 mg/dL Low 8.5-10.2 [facility] Comment on above: Order Comment: Speci men Type: BLOOD SPECIMEN Order[facility] Facility: [facility] Address: [address] [place] [address] Performed By: #### 5 7021-8 #### [facility] [place] [id number] [address] [place] [address] [place] Chloride [Moles/Vol] 109 mmol/L High 97-105 [facility] Comment on above: Order Comment: Speci men Type: BLOOD SPECIMEN Ordering Facility: [facility] Address: [address] [place] [address] Performed By: #### 5 7021-8 #### [facility] [id number] [address] [place] [address] [place] CO2 [Moles/Vol] 15 mmol/L Low 22-30 [facility] Comment on above: Order Comment: Speci men Type: BLOOD SPECIMEN Ordering Facility: [facility] Address: [address] [place] [address] Performed By: #### 5 7021-8 #### [facility] [id number] [address] [place] [address] [place] Creatinine [Mass/Vol] 5.40 mg/dL High 0.73-1.22 [facility] Comment on above: Order Comment: Speci men Type: BLOOD SPECIMEN Ordering Facility: [facility] Address: [address] [place] [address] Performed By: #### 5 7021-8 #### [facility] [id number] [address] [place] [address] [place] Creatinine and Glomerular filtration rate.predicted panel (S/P/Bld) 15 mL/min/1.73m??? Low >=60 [facility] Comment on above: Order Comment: Speci men Type: BLOOD SPECIMEN Ordering Facility: [facility] Address: [address] [place] [address] Result Comment: Krystle mated Glomerular Filtration Rate (eGFR) is calculated using the 2020 CKD-EPI creatinine equation. This equation utilizes serum creatinine, sex, and age as parameters. The creatinine assay has traceable calibration to isotope dilution-mass spectrometry. Refer to KDIGO guidelines for clinical interpretation. In patients with unstable renal function, e.g. those with acute kidney injury, the eGFR may not accurately reflect actual GFR. Performed By: #### 5 7021-8 #### [facility] [id number] [address] [place] [address] [place] Glucose [Mass/Vol] 74 mg/dL Normal 74-99 [facility] Comment on above: Order Comment: Chaparro sandra Type: BLOOD SPECIMEN Order[facility]: [facility] Address: [address] [place] [address] Result Comment: The [place] Diabetes Association (ADA) provides guidance for cutoff values for fasting glucose and random glucose. The ADA defines fasting as no caloric intake for at least 8 hours. Fasting plasma glucose results between 100 to 125 mg/dL indicate increased risk for diabetes (prediabetes). Fasting plasma glucose results greater than or equal to 126 mg/dL meet the criteria for diagnosis of diabetes. In the absence of unequivocal hyperglycemia, results should be confirmed by repeat testing. In a patient with classic symptoms of hyperglycemia or hyperglycemic crisis, random plasma glucose results greater than or equal to 200 mg/dL meet the criteria for diagnosis of diabetes. Reference: Standards of Medical Care in Diabetes 2016, [place] [employer]. Diabetes Care. 2016.39(Suppl 1). Performed By: #### 5 7021-8 #### [facility] [id number] [address] [place] [address] [place] Potassium [Moles/Vol] 3.8 mmol/L Normal 3.7-5.1 [facility] Comment on above: Order Comment: Chaparro sandra Type: BLOOD SPECIMEN [facility] Address: [address] [place] [address] Performed By: #### 5 7021-8 #### [facility] CLIA [id number] [address] [place] [address] [place] Sodium [Moles/Vol] 138 mmol/L Normal 136-144 [facility] Comment on above: Order Comment: Speci men Type: BLOOD SPECIMEN [facility] Address: [address] [place] [address] Performed By: #### 5 7021-8 #### [facility] [place] [id number] [address] [place] [address] [place] Urea nitrogen [Mass/Vol] 27 mg/dL High 9-24 [facility] Comment on above: Order Comment: Speci men Type: BLOOD SPECIMEN [facility] Address: [address] [place] [address] Performed By: #### 5 7021-8 #### [facility] [place] [id number] [address] [place] [address] [place] CALCULI ANALYSISon 4 Calculus analysis [Interp] Normal [facility] Comment on above: Order Comment: Speci men Type: CALCULUS SPECIMENOrdering Facility: [facility] Address: [address] [place] [address] Result Comment: This test was developed and its performance characteristics determined by [facility]'s [facility] Pathology and Laboratory Medicine [place] ([facility]). It has not been cleared or approved by the FDA. [facility] is regulated under CLIA as qualified to perform high-complexity testing. This test is used for clinical purposes. It should not be regarded as investigational or for research. Performed By: #### C SA ####[facility] LABCLIA [id number] [place] [address] [place] CALCULUS COLOR LYN Normal [facility] Comment on above: Order Comment: Speci men Type: CALCULUS SPECIMENOrdering Facility: [facility] Address: [address] [place] [address] Performed By: #### C SA ####[facility] LABCLIA [id number] [place] [address] [place] CALCULUS COMPOSITION 1 100% Calcium Phosphate Normal [facility] Comment on above: Order Comment: Speci men Type: CALCULUS SPECIMENOrdering Facility: [facility] Address: [address] [place] [address] Performed By: #### C SA ####[facility] LABIA [id number] [place] [address] [place] CALCULUS SIZE AND WT Multiple pieces. To o small to weigh. Normal [facility] Comment on above: Order Comment: Speci men Type: CALCULUS SPECIMENOrdering Facility: [facility] Address: [address] [place] [address] Performed By: #### C SA ####[facility] [id number] [place] [address] [place] CALCULUS TYPE CALCULI/CALCULUS Normal [facility] Comment on above: Order Comment: Speci men Type: CALCULUS SPECIMENOrdering Facility: [facility] Address: [address] [place] [address] Performed By: #### C SA ####[facility] [id number] [place] [address] [place] CBC W Auto Differential pane l (Bld)on 07-08-2023 Basophils (Bld) [#/Vol] 10*3/uL Normal <0.11 [facility] Comment on above: Order Comment: Speci men Type: BLOOD SPECIMENOrdering Facility: [facility] Address: [address] [place] [address] Performed By: #### 5 7021-8 ####[facility] [id number] [place] [address] [place] Basophils/100 WBC (Bld) 0.2 % Normal [facility] Comment on above: Order Comment: Speci men Type: BLOOD SPECIMENOrdering Facility: [facility] Address: [address] [place] [address] Performed By: #### 5 7021-8 ####[facility] LABCLIA [id number] [place] [address] [place] Differential cell count method Nom (Bld) Auto Normal [facility] Comment on above: Order Comment: Speci men Type: BLOOD SPECIMENOrdering Facility: [facility] Address: [address] [place] [address] Performed By: #### 5 7021-8 ####[facility] LABCLIA [id number] [place] [address] [place] Eosinophils (Bld) [#/Vol] 10*3/uL Normal <0.46 [facility] Comment on above: Order Comment: Speci men Type: BLOOD SPECIMENOrdering Facility: [facility] Address: [address] [place] [address] Performed By: #### 5 7021-8 ####[facility] LABCLIA [id number] [place] [address] [place] Eosinophils/100 WBC (Bld) 0.3 % Normal [facility] Comment on above: Order Comment: Speci men Type: BLOOD SPECIMENOrdering Facility: [facility] Address: [address] [place] [address] Performed By: #### 5 7021-8 ####[facility] LABCLIA [id number] [place] [address] [place] Erythrocyte distribution width (RBC) [Ratio] 12.8 % Normal 11.5-15.0 [facility] Comment on above: Order Comment: Speci men Type: BLOOD SPECIMENOrdering Facility: [facility] Address: [address] [place] [address] Performed By: #### 5 7021-8 ####[facility] LABCLIA [id number] [place] [address] [place] Hematocrit (Bld) [Volume fraction] 38.9 % Low 39.0-51.0 [facility] Comment on above: Order Comment: Speci men Type: BLOOD SPECIMENOrdering Facility: [facility] Address: [address] [place] [address] Performed By: #### 5 7021-8 ####[facility] LABCLIA [id number] [place] [address] [place] Hemoglobin (Bld) [Mass/Vol] 13.2 g/dL Normal 13.0-17.0 [facility] Comment on above: Order Comment: Speci men Type: BLOOD SPECIMENOrdering Facility: [facility] Address: [address] [place] [address] Performed By: #### 5 7021-8 ####[facility] LABCLIA [id number] [place] [address] [place] Immature granulocytes (Bld) [#/Vol] 0.03 10*3/uL Normal <0.10 [facility] Comment on above: Order Comment: Speci men Type: BLOOD SPECIMENOrdering Facility: [facility] Address: [address] [place] [address] Performed By: #### 5 7021-8 ####[facility] LABCLIA [id number] [place] [address] [place] Immature granulocytes/100 WBC (Bld) 0.5 % Normal [facility] Comment on above: Order Comment: Speci men Type: BLOOD SPECIMENOrdering Facility: [facility] Address: [address] [place] [address] Performed By: #### 5 7021-8 ####[facility] LABCLIA [id number] [place] [address] [place] Lymphocytes (Bld) [#/Vol] 1.53 10*3/uL Normal 1.00-4.00 [facility] Comment on above: Order Comment: Speci men Type: BLOOD SPECIMENOrdering Facility: [facility] Address: [address] [place] [address] Performed By: #### 5 7021-8 ####[facility] LABIA [id number] [place] [address] [place] Lymphocytes/100 WBC (Bld) 24.2 % Normal [facility] Comment on above: Order Comment: Speci men Type: BLOOD SPECIMENOrdering Facility: [facility] Address: [address] [place] [address] Performed By: #### 5 7021-8 ####[facility] LABIA [id number] [place] [address] [place] MCH (RBC) [Entitic mass] 31.4 pg Normal 26.0-34.0 [facility] Comment on above: Order Comment: Speci men Type: BLOOD SPECIMENOrdering Facility: [facility] Address: [address] [place] [address] Performed By: #### 5 7021-8 ####[facility] LABIA [id number] [place] [address] [place] MCHC (RBC) [Mass/Vol] 33.9 g/dL Normal 30.5-36.0 [facility] Comment on above: Order Comment: Speci men Type: BLOOD SPECIMENOrdering Facility: [facility] Address: [address] [place] [address] Performed By: #### 5 7021-8 ####[facility] LABIA [id number] [place] [address] [place] MCV (RBC) [Entitic vol] 92.4 fL Normal 80.0-100.0 [facility] Comment on above: Order Comment: Speci men Type: BLOOD SPECIMENOrdering Facility: [facility] Address: [address] [place] [address] Performed By: #### 5 7021-8 ####[facility] LABIA [id number] [place] [address] [place] Monocytes (Bld) [#/Vol] 1.03 10*3/uL High <0.87 [facility] Comment on above: Order Comment: Speci men Type: BLOOD SPECIMENOrdering Facility: [facility] Address: [address] [place] [address] Performed By: #### 5 7021-8 ####[facility] LABCLIA [id number] [place] [address] [place] Monocytes/100 WBC (Bld) 16.3 % Normal [facility] Comment on above: Order Comment: Speci men Type: BLOOD SPECIMENOrdering Facility: [facility] Address: [address] [place] [address] Performed By: #### 5 7021-8 ####[facility] LABCLIA [id number] [place] [address] [place] Neutrophils (Bld) [#/Vol] 3.70 10*3/uL Normal 1.45-7.50 [facility] Comment on above: Order Comment: Speci men Type: BLOOD SPECIMENOrdering Facility: [facility] Address: [address] [place] [address] Performed By: #### 5 7021-8 ####[facility] LABCLIA [id number] [place] [address] [place] Neutrophils/100 WBC (Bld) 58.5 % Normal [facility] Comment on above: Order Comment: Speci men Type: BLOOD SPECIMENOrdering Facility: [facility] Address: [address] [place] [address] Performed By: #### 5 7021-8 ####[facility] LABCLIA [id number] [place] [address] [place] Nucleated RBC (Bld) [#/Vol] 10*3/uL Normal <0.01 [facility] Comment on above: Order Comment: Speci men Type: BLOOD SPECIMENOrdering Facility: [facility] Address: [address] [place] [address] Performed By: #### 5 7021-8 ####[facility] LABIA [id number] [place] [address] [place] Nucleated RBC/100 WBC (Bld) [Ratio] 0.0 /100 WBC Normal [facility] Comment on above: Order Comment: Speci men Type: BLOOD SPECIMENOrdering Facility: [facility] Address: [address] [place] [address] Performed By: #### 5 7021-8 ####[facility] LABIA [id number] [place] [address] [place] Platelet mean volume (Bld) [Entitic vol] 11.1 fL Normal 9.0-12.7 [facility] Comment on above: Order Comment: Speci men Type: BLOOD SPECIMENOrdering Facility: [facility] Address: [address] [place] [address] Performed By: #### 5 7021-8 ####[facility] [id number] [place] [address] [place] Platelets (Bld) [#/Vol] 81 10*3/uL Low 150-400 [facility] Comment on above: Order Comment: Speci men Type: BLOOD SPECIMENOrdering Facility: [facility] Address: [address] [place] [address] Result Comment: Resu lts checked and verified.No clot detected. Performed By: #### 5 7021-8 ####[facility] [id number] [place] [address] [place] RBC (Bld) [#/Vol] 4.21 10*6/uL Normal 4.20-6.00 [facility] Comment on above: Order Comment: Speci men Type: BLOOD SPECIMENOrdering Facility: [facility] Address: [address] [place] [address] Performed By: #### 5 7021-8 ####[facility] LABCLIA [id number] [place] [address] [place] WBC (Bld) [#/Vol] 6.32 10*3/uL Normal 3.70-11.00 [facility] Comment on above: Order Comment: Speci men Type: BLOOD SPECIMENOrdering Facility: [facility] Address: [address] [place] [address] Performed By: #### 5 7021-8 ####[facility] LABCLIA [id number] [address] [place] CONSULTon 07-08-2023 CONSULT HNO ID: [id number] Author: MORTEZA KEYES MD Service: Pediatric Epilepsy Author Type: Physician Type: Consults Filed: 07/09/2023 15:07 Note Text: NEURO PEDIATRIC EPILEPSY CONSULT NOTE SERVICE DATE: 07/08/2023 SERVICE TIME: 6:25 PM ATTENDING PHYSICIAN: Dr. Morteza Keyes 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 Roper), PNES and panic attacks who is admitted to the Urology service for b/l nephrolithiasis (s/p ureteral stent placement 07/07) Last saw Dr. Haider on 06/26/2023, no recent seizures at that time. Mom today denies seizures in recent months. States his mental status is at baseline, getting speech therapy in recent weeks. Denies any current complaints aside from post-op fatigue. At his neurologic baseline per mother. Current home ASMs: - VPA 1000 mg AM + 1250 mg qhs - TPM XR 850 mg qhs Rescue Valtoco, not used recently. CURRENT SEIZURE TYPES: Seizure type 1. Generalized clonic, New Onset: 09/18/2021 Description: clonic shaking of entire body including facial and eye twitching, reportedly w/retained awareness Postictal: unknown Frequency: 1x Duration: several minutes Last seizure: 09/18/2021 Seizure type 2. Night arousals, Old but increased frequency Onset: 04/2019 when weaning [facility] Description: sleep arousal, scream, no awareness, various positioning (crouching) or holding edge of bed - similar to pre-surgical seizures but without hyper-motor component Postictal: unknown Frequency: 1x every several weeks usually - had 13x overnight 09/18-09/19/2021 Last seizure: 0840 hrs 09/19 PRIOR SEIZURE TYPES: Seizure type 1. Epileptic spasm Onset: around 7710-4327 Description: He has stiffening of the trunk with extension of the arm and legs, typically not in clusters but isolated. Seizure occurred always when Sara was asleep. Postictal: go on sleeping. Frequency: 2-3 per week, became sporadic 1-2x/yr on VPA Duration: seconds, like lightning Last seizure: May 2012. Seizure type 2: Generalized tonic clonic seizures Onset: Onset during acute encephalitis in 2005. Description: He had full convulsions with stiffening of the body and trembling of the body. This occurred after his mother noticed weakness in one side of the body, his mother does not remember which one. Initial convulsion was short, second convulsion was a week later. Third convulsion occurred after a dental cleaning. Duration: seconds to minutes. Frequency: 5 in his lifetime Last one: July 2012 Seizure type 3: Screaming spells from sleep Onset: around January 2012 Description: Events occur only during sleep typically after 2 am but can be up to 7am. Sara is lying in bed and starts screaming, and hits the wall. He does not look scared. Sara can not speak during the events. He has not recollection of the event afterwards. There are not convulsions or spasms during the time but the legs and arms are stretched. After the event, Sara can speak without difficulties and he typically goes back to sleep without problems. Frequency 3-4 per week Duration: around one minute Last event: September 2012. Seizure type 4: Hyper-motor from sleep Onset: unknown, but resolved after surgery 2019 Description as below: The type A seizures occurred out of sleep with an abrupt onset where he raises his arms and stiffens his legs for a fraction of a second followed by violent trashing movements (while right arm and left leg tonic), sometimes turning in bed to either side. He has vocalizations in about 10 seconds after the onset of the seizure and may be followed by a scream. He is fast to recover after the end of the seizure and can answer questions and follow commands. While Type B seizures were also out of sleep with an arousal, he looks around and may adjust his blanket along with complex movements of arms and trunk followed by a tonic stiffening and hypermotor phase. PREVIOUS EVALUATIONS: Most recent VEEG February 2023: Sara Pichardo is a 17 year old right handed male with a prior history of generalized and focal epilepsy, well controlled movement disorder, mild to moderate cognitive impairment and behavioral problems secondary to acute encephalitis of unknown etiology at age 1 years, s/p R mesial frontal lobe resection (04/2018, Dr. Tomi Maki). 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 Normal [facility] Comprehensive metabolic 2000 panelon 07-08-2023 Albumin [Mass/Vol] 3.1 g/dL Low 3.9-4.9 [facility] Comment on above: Order Comment: Chaparro sandra Type: BLOOD SPECIMEN [facility] Address: [address] [place] [address] Performed By: #### 5 7021-8 #### [facility] [id number] [address] [place] [address] [place] ALP [Catalytic activity/Vol] 50 U/L Normal 38-113 [facility] Comment on above: Order Comment: Chaparro sandra Type: BLOOD SPECIMEN Ordering Facility: [facility] Address: [address] [place] [address] Performed By: #### 5 7021-8 #### [facility] [id number] [address] [place] [address] [place] ALT [Catalytic activity/Vol] 42 U/L Normal 10-54 [facility] Comment on above: Order Comment: Speci men Type: BLOOD SPECIMEN Ordering Facility: [facility] Address: [address] [place] [address] Performed By: #### 5 7021-8 #### [facility] [id number] [address] [place] [address] [place] Anion gap [Moles/Vol] 13 mmol/L Normal 9-18 [facility] Comment on above: Order Comment: Speci men Type: BLOOD SPECIMEN Ordering Facility: [facility] Address: [address] [place] [address] Performed By: #### 5 7021-8 #### [facility] [id number] [address] [place] [address] [place] AST [Catalytic activity/Vol] 45 U/L High 14-40 [facility] Comment on above: Order Comment: Speci men Type: BLOOD SPECIMEN Ordering Facility: [facility] Address: [address] [place] [address] Performed By: #### 5 7021-8 #### [facility] [id number] [address] [place] [address] [place] Bilirubin [Mass/Vol] 0.2 mg/dL Normal 0.2-1.3 [facility] Comment on above: Order Comment: Speci men Type: BLOOD SPECIMEN Ordering Facility: [facility] Address: [address] [place] [address] Performed By: #### 5 7021-8 #### [facility] [id number] [address] [place] [address] [place] Calcium [Mass/Vol] 7.9 mg/dL Low 8.5-10.2 [facility] Comment on above: Order Comment: Speci men Type: BLOOD SPECIMEN Ordering Facility: [facility] Address: [address] [place] [address] Performed By: #### 5 7021-8 #### [facility] [id number] [address] [place] [address] [place] Chloride [Moles/Vol] 111 mmol/L High 97-105 [facility] Comment on above: Order Comment: Speci men Type: BLOOD SPECIMEN Ordering Facility: [facility] Address: [address] [place] [address] Performed By: #### 5 7021-8 #### [facility] [id number] [address] [place] [address] [place] CO2 [Moles/Vol] 15 mmol/L Low 22-30 [facility] Comment on above: Order Comment: Speci men Type: BLOOD SPECIMEN Ordering Facility: [facility] Address: [address] [place] [address] Performed By: #### 5 7021-8 #### [facility] [id number] [address] [place] [address] [place] Creatinine [Mass/Vol] 3.04 mg/dL High 0.73-1.22 [facility] Comment on above: Order Comment: Speci men Type: BLOOD SPECIMEN Ordering Facility: [facility] Address: [address] [place] [address] Performed By: #### 5 7021-8 #### [facility] [id number] [address] [place] [address] [place] Creatinine and Glomerular filtration rate.predicted panel (S/P/Bld) 29 mL/min/1.73m??? Low >=60 [facility] Comment on above: Order Comment: Speci men Type: BLOOD SPECIMEN Ordering Facility: [facility] Address: [address] [place] [address] Result Comment: Krystle mated Glomerular Filtration Rate (eGFR) is calculated using the 2020 CKD-EPI creatinine equation. This equation utilizes serum creatinine, sex, and age as parameters. The creatinine assay has traceable calibration to isotope dilution-mass spectrometry. Refer to KDIGO guidelines for clinical interpretation. In patients with unstable renal function, e.g. those with acute kidney injury, the eGFR may not accurately reflect actual GFR. Performed By: #### 5 7021-8 #### [facility] [id number] [address] [place] [address] [place] Glucose [Mass/Vol] 101 mg/dL High 74-99 [facility] Comment on above: Order Comment: Chaparro sandra Type: BLOOD SPECIMEN Ordering Facility: [facility] Address: [address] [place] [address] Result Comment: The [place] [employer] (ADA) provides guidance for cutoff values for fasting glucose and random glucose. The ADA defines fasting as no caloric intake for at least 8 hours. Fasting plasma glucose results between 100 to 125 mg/dL indicate increased risk for diabetes (prediabetes). Fasting plasma glucose results greater than or equal to 126 mg/dL meet the criteria for diagnosis of diabetes. In the absence of unequivocal hyperglycemia, results should be confirmed by repeat testing. In a patient with classic symptoms of hyperglycemia or hyperglycemic crisis, random plasma glucose results greater than or equal to 200 mg/dL meet the criteria for diagnosis of diabetes. Reference: Standards of Medical Care in Diabetes 2016, [place] [employer]. Diabetes Care. 2016.39(Suppl 1). Performed By: #### 5 7021-8 #### [facility] [id number] [address] [place] [address] [place] Potassium [Moles/Vol] 3.9 mmol/L Normal 3.7-5.1 [facility] Comment on above: Order Comment: Chaparro sandra Type: BLOOD SPECIMEN Ordering Facility: [facility] Address: [address] [place] [address] Performed By: #### 5 7021-8 #### [facility] [id number] [address] [place] [address] [place] Protein [Mass/Vol] 5.5 g/dL Low 6.3-8.0 [facility] Comment on above: Order Comment: Chaparro sandra Type: BLOOD SPECIMEN Ordering Facility: [facility] Address: [address] [place] [address] Performed By: #### 5 7021-8 #### [facility] [id number] [address] [place] [address] [place] Sodium [Moles/Vol] 139 mmol/L Normal 136-144 [facility] Comment on above: Order Comment: Speci men Type: BLOOD SPECIMEN Ordering Facility: [facility] Address: [address] [place] [address] Performed By: #### 5 7021-8 #### [facility] [id number] [address] [place] [address] [place] Urea nitrogen [Mass/Vol] 30 mg/dL High 9-24 [facility] Comment on above: Order Comment: Speci men Type: BLOOD SPECIMEN Ordering Facility: [facility] Address: [address] [place] [address] Performed By: #### 5 7021-8 #### [facility] [id number] [address] [place] [address] [place] HISTORY PHYSICALon HISTORY PHYSICAL HNO ID: [id number] Author: ROBYN PINON MD Service: Urology Author Type: Resident Type: H&P Filed: 07/08/2023 00:50 Note Text: Attestation signed by Юлия Cornejo MD at 07/08/2023 5:01 PM I Discussed with the resident and agree with resident's findings and plan as documented in the resident's note. I was not present in this encounter UROLOGY SERVICE HANDP NOTE PATIENT NAME: Sara Pichardo Date: July 08, 2023 ASSESSMENT AND PLAN Sara Pichardo is 17 year old male with a history of seizure disorder, NMDA receptor encephalitis (age 1), and urinary incontinence who presents as transfer from OSH for bilateral obstructive uropathy ( R - 5mm UPJ stone, and L 5mm UPJ stone and multiple other nonobstructive stones bilaterally). On exam, patient is AF, HDS and non-toxic appearing. Labs at OSH no leukocytosis, Scr 3.68 (baseline ~0.82), UA trace LE/ neg nitrites, 5-10 RBC, 0-2 WBC, trace bacteria. - Admit to urology (endourology service - Dr. Manrique) - Blue carded and consented for bilateral URS/LL/stent - NPO - Fu UA/Urine culture - Empirically started IV rocephin - Uploaded OSH imaging - Strain all urine - Flomax - Restarted home meds Discussed with staff Dr. Dev Bobo MD Urology Resident Physician PGY-3 Pager [phone] For after hours or weekends please page [phone] [facility] [place] HPI Sara Pichardo is a 17 year old male with a history of seizure disorder, NMDA receptor encephalitis (age 1), and urinary incontinence who presents as transfer from OSH for bilateral obstructive uropathy ( R - 5mm UPJ stone, and L 5mm UPJ stone and multiple other nonobstructive stones bilaterally). Patient reports developing abdominal pain today and darkening of urine which prompted him to be evaluated. Denies any fevers, chills, nausea, gross hematuria, dysuria, urgency or frequency. Reports episode of emesis unclear when. No prior history of nephrolithiasis. No family history of stones. On exam, patient is AF, HDS and non-toxic appearing. Labs at OSH no leukocytosis, Scr 3.68 (baseline ~0.82), UA trace LE/ neg nitrites, 5-10 RBC, 0-2 WBC, trace bacteria. --- PAST MEDICAL HISTORY Diagnosis Date Adolescent behavior problems Qjhv-F-dnenbt-D-aspar anderson (NMDA) receptor encephalitis 10/25/2005 Developmental delay Intractable seizure disorder (HCC) 10/25/2005 Low blood pressure Movement disorder 10/25/2005 Syncope Urinary incontinence Vitamin D deficiency PAST SURGICAL HISTORY Procedure Laterality Date CRANIOTOMY PARTIAL/SUBTOTAL HEMISPHERECTOMY Right 05/26/2018 Frontal NEUROSTIM PETR W/ REPROGRAM N/A 02/05/2018 FAMILY HISTORY Problem Relation Age of Onset other (NMDA Encephalitis) Sister Social History Tobacco Use Smoking status: Never Passive exposure: Never Smokeless tobacco: Never MEDICATIONS: Prior to Admission Medications: topiramate XR (QUDEXY XR) 100 mg cap(s)Take 8 capsules by mouth daily at bedtime. Take with one 50 mg capsule = total dose 850 mg at bedtimeDisp: 240 capsuleRfl: 11 topiramate XR (QUDEXY XR) 50 mg cap(s)Take 1 capsule by mouth daily at bedtime.Disp: 30 capsuleRfl: [address] (DEPAKOTE) 250 mg EC tabletTake 1 tablet by mouth daily at 6 pm. daily dose 1000mg in the morning and 1250mg at nightDisp: 30 tabletRfl: 11 Cholecalciferol, Vitamin D3, (VITAMIN D) 25 mcg (1,000 unit) capTake 2 capsules by mouth once daily.Disp: 60 capsuleRfl: [address] (DEPAKOTE) 500 mg EC tabletTake 2 tablets by mouth two times a day. daily dose 1000mg in the morning and 1250mg at nightDisp: 120 tabletRfl: 11 THERAPEUTIC-M 9 mg iron-400 mcg tabletTake 1 tablet by mouth once daily.Disp: 30 tabletRfl: 11 diazePAM (VALTOCO) 20 mg/2 spray (10mg/0.1mL x2) nasal sprayUse 1 [place] in each nostril as needed for seizures lasting longer than 3 minutes (For seziures > 3 minutes or 3 seizures in 30 minutes.).Disp: 4 EachRfl: 2 guanFACINE (TENEX) 1 mg tabletTake 1 tablet by mouth once daily.Disp: Rfl: topiramate XR (QUDEXY XR) 200 mg cap(s)Take 4 capsules by mouth daily at bedtime. daily dose is 850mgDisp: 360 capsuleRfl: 3 OLANZapine orally disintegrating (ZYPREXA ZYDIS) 5 mg disintegrating tabletTake 1 tablet by mouth as needed.Disp: 30 tabletRfl: 2 ibuprofen (MOTRIN) 200 mg tabletTake 2 tablets by mouth every 6 hours as needed for Pain or Fever.Disp: Rfl: docusate sodium (COLACE) 100 mg capsuleTake 1 capsule by mouth twice daily.Disp: 30 capsuleRfl: 0 Current Facility-Administered Medications Medication Dose Route Frequency docusate sodium 100 mg cap(s) (COLACE) 100 mg ORAL BID NaCl 0.9% iv flush bag 20 mL INTRAVENOUS PRN (more content not included)... Normal [facility] OPERATIVE NOon 07-08-2023 OPERATIVE NO HNO ID: [id number] Author: PARAS BOWENS MD Service: Urology Author Type: Fellow Type: Operative Report Filed: 07/08/2023 11:03 Note Text: OPERATIVE/PROCEDURE REPORT LOG ID: [id number] Surgery/Procedure Date: 07/08/2023 Incision/Procedure Start Time: 9:05 AM Incision Close/Procedure End Time: 10:42 AM Surgeon(s)/Procedural ist(s) and Metaphysics Teacher(s): Surgeon(s) and Role: * Paras Bowens MD - Primary * Bear Deleon MD - Resident - Assisting Procedure(s): Bilateral ureteroscopy Laser lithotripsy Bilateral retrograde pyelogram Bilateral ureteral stent insertion Approach: Endoscopic Anesthesia: General Operative Findings: Stone Mcewen: Left Primary stone 6 mm proximal ureter; Right 6 mm Proximal stone. Multiple bilateral non-obstructing stones (largest 5-6 mm) Ureteral Access Sheath: N/A Lithotripsy Technique: dusting Laser: 200-micron holmium fiber laser; 0.6 J and 40 Hz; Total energy: 7 kJ Irrigation: Pressurized-bag; max pressure 100 mmHg Anatomic Findings: Tight urethral meatus dilated to 26F. Bilateral mildly impacted stones pushed into kidney and dusted in situ. Suspect Calcium phosphate composition. Post-Op Plan: Discharge from same day surgery once meets all discharge criteria. Plan for ureteric stent removal in 2-3 week(s) once renal function stabilizes Clinical Indications: Sara Pichardo is a 17 year old year-old male with bilateral obstructing ureteral stones and was found to be anuric with Cr >5. He presents today for ureteroscopic management thereof. Preoperative imaging showed a bilateral proximal ureteral stones measuring 6 mm each with additional non-obstructing renal stones. He is Topamax for epilepsy. Signed informed consent was obtained prior to the procedure after the risks, complications and alternatives to the procedure were discussed. Operative Procedure: Sara Pichardo was brought to OR. After reviewing the images, HANDP, and all relevant lab work and pathology, a surgical huddle was performed with all operating room personnel. The patient was then placed on the operating room table, perioperative antibiotics (ancef) were administered, and general anesthesia induced. Patient was placed in dorsal lithotomy position with all pressure points padded and was prepped and draped in the usual sterile manner. A surgical timeout was performed. Fluoroscopy C-arm was brought into the room. Director Safety Council images were taken. The urethra was calibrated to 26F with [place] sounds. A 22-Czech cystoscope was introduced per urethra atraumatically under direct vision. A 0.035 Bard Solo guidewire was advanced through the right ureteral orifice into the renal pelvis under fluoroscopic guidance. The stone was mildly impacted and required the 5F ureteral catheter to negotiate the wire beyond it. Retrograde pyelogram confirmed we were in the kidney. A 10F dual lumen catheter was used to introduce a second Solo wire. The [employer] flexible ureteroscope was then advanced one of the wires under fluoroscopic control into the renal pelvis and the wire was removed.Systematic pyeloscopy was performed. The ureteral stone had been pushed into the kidney. Stones were seen in the midpole and lower pole calyces. Laser lithotripsy was performed with a 200 micron Holmium laser fiber primarily at settings of 0.6 J/40 Hz. The stone was fragmented into dust and submillimeter particles considered small enough to pass spontaneously. A limited retrograde pyelogram was performed and there were no filling defects or extravasation noted. The scope was then removed. The ureter was examined upon removal of the scope, and there were no residual fragments or injury along the course of the ureter. A 6 Fr x 26 cm JJ ureteric stent was placed retrograde over the safety wire with a good curl noted in the kidney and bladder on fluoroscopy. We then turned our attention to the left side. The 22-Czech cystoscope was introduced per urethra atraumatically under direct vision. A 0.035 Bard Solo guidewire was advanced through the left ureteral orifice into the renal pelvis under fluoroscopic guidance. A 10F dual lumen catheter was used to introduce a second Solo wire. The [employer] flexible ureteroscope was then advanced one of the wires under fluoroscopic control into the renal pelvis and the wire was removed. Systematic pyeloscopy was performed. The ureteral stone had been pushed into the kidney. Stones were seen in the upper pole and lower pole calyces. Laser lithotripsy was performed with a 200 micron Holmium laser fiber primarily at settings of 0.6 J/40 Hz. The stone was fragmented into dust and submillimeter particles considered small enough to pass spontaneously. Stone dust was aspirated through the ureteroscope and submitted for stone analysis. A limited retrograde pyelogram was performed and there were no filling defects or extravasation noted. The scope was then removed. The ur (more content not included)... Normal [facility] Topiramate SerPl-mCncon 03-1 Topiramate [Mass/Vol] 29.0 ug/mL High 5.0-20.0 [facility] Comment on above: Order Comment: Speci men Type: BLOOD SPECIMENOrdering Facility: [facility] Address: [address] [place] [address] Result Comment: Refe rence ranges and high/low indicator flags are provided as general guidelines only. The treating physician must determine appropriate target levels/dosing based on the specific clinical situation. This test was developed and its performance characteristics determined by [facility]'s [place] [facility] Pathology [facility] Laboratory Medicine [place] ([facility]). It has not been cleared or approved by the FDA. [facility] is regulated under CLIA as qualified to perform high-complexity testing. This test is used for clinical purposes. It should not be regarded as investigational or for research. Performed By: #### 1 7713-9 ####[facility] [id number] [place] [address] [place] URINALYSIS, REFLEX MICROSCOP ICon 07-08-2023 Bacteria LM.HPF (Urine sed) [#/Area] Negative Normal Negative [facility] Comment on above: Order Comment: Speci men Type: URINE SPECIMENOrdering Facility: [facility] Address: [address] [place] [address] Performed By: #### L [id number] ####[facility] [id number] [place] [address] [place] Bilirubin Ql (U) Negative Normal Negative [facility] Comment on above: Order Comment: Speci men Type: URINE SPECIMENOrdering Facility: [facility] Address: [address] [place] [address] Performed By: #### L [id number] ####[facility] [id number] [place] [address] [place] Clarity (Unsp spec) Cloudy Abnormal Clear [facility] Comment on above: Order Comment: Speci men Type: URINE SPECIMENOrdering Facility: [facility] Address: [address] [place] [address] Performed By: #### L [id number] ####[facility] [id number] [place] [address] [place] Color (U) Red Abnormal Yellow [facility] Comment on above: Order Comment: Speci men Type: URINE SPECIMENOrdering Facility: [facility] Address: [address] [place] [address] Performed By: #### L [id number] ####[facility] [id number] [place] [address] [place] Epithelial cells LM.HPF (Urine sed) [#/Area] None Seen Normal [facility] Comment on above: Order Comment: Speci men Type: URINE SPECIMENOrdering Facility: [facility] Address: [address] [place] [address] Performed By: #### L [id number] ####[facility] [id number] [place] [address] [place] Glucose Test strip (U) [Mass/Vol] Negative Normal Negative [facility] Comment on above: Order Comment: Speci men Type: URINE SPECIMENOrdering Facility: [facility] Address: [address] [place] [address] Performed By: #### L [id number] ####[facility] [id number] [place] [address] [place] Hemoglobin Ql (U) 3+ Abnormal Negative [facility] Comment on above: Order Comment: Speci men Type: URINE SPECIMENOrdering Facility: [facility] Address: [address] [place] [address] Performed By: #### L [id number] ####[facility] [id number] [place] [address] [place] Hyaline casts (Urine sed) [#/Area] 1-3 /LPF Abnormal 0 /LPF [facility] Comment on above: Order Comment: Speci men Type: URINE SPECIMENOrdering Facility: [facility] Address: [address] [place] [address] Performed By: #### L [id number] ####[facility] [id number] [place] [address] [place] Ketones Ql (U) Negative Normal Negative [facility] Comment on above: Order Comment: Speci men Type: URINE SPECIMENOrdering Facility: [facility] Address: [address] [place] [address] Performed By: #### L [id number] ####[facility] [id number] [place] [address] [place] Leukocyte esterase Test strip Ql (U) 1+ Abnormal Negative [facility] Comment on above: Order Comment: Speci men Type: URINE SPECIMENOrdering Facility: [facility] Address: [address] [place] [address] Performed By: #### L [id number] ####[facility] [id number] [place] [address] [place] Nitrite Ql (U) Negative Normal Negative [facility] Comment on above: Order Comment: Speci men Type: URINE SPECIMENOrdering Facility: [facility] Address: [address] [place] [address] Performed By: #### L [id number] ####[facility] LABIA [id number] [place] [address] [place] pH (U) 5.5 [pH] Normal <8.5 [facility] Comment on above: Order Comment: Speci men Type: URINE SPECIMENOrdering Facility: [facility] Address: [address] [place] [address] Performed By: #### L [id number] ####[facility] LABIA [id number] [place] [address] [place] Protein (U) [Mass/Vol] 2+ Abnormal Negative [facility] Comment on above: Order Comment: Speci men Type: URINE SPECIMENOrdering Facility: [facility] Address: [address] [place] [address] Performed By: #### L [id number] ####[facility]CLIA [id number] [place] [address] [place] RBC LM.HPF (Urine sed) [#/Area] /[HPF] Abnormal 0-2 /HPF [facility] Comment on above: Order Comment: Speci men Type: URINE SPECIMENOrdering Facility: [facility] Address: [address] [place] [address] Performed By: #### L [id number] ####[facility] LABIA [id number] [place] [address] [place] Specific gravity (U) [Rel density] 1.009 Normal 1.005-1.030 [facility] Comment on above: Order Comment: Speci men Type: URINE SPECIMENOrdering Facility: [facility] Address: [address] [place] [address] Performed By: #### L [id number] ####[facility]CL[facility] [id number] [place] [address] [place] Urobilinogen Ql (U) 0.2 EU/dL Normal 0.2-1.0 EU/dL [facility] Comment on above: Order Comment: Speci men Type: URINE SPECIMENOrdering Facility: [facility] Address: [address] [place] [address] Performed By: #### L [id number] ####[facility] [id number] [place] [address] [place] WBC LM.HPF (Urine sed) [#/Area] 6-10 /HPF Abnormal 0-5 /HPF [facility] Comment on above: Order Comment: Speci men Type: URINE SPECIMENOrdering Facility: [facility] Address: [address] [place] [address] Performed By: #### L [id number] ####[facility] [id number] [place] [address] [place] Valproate [facility] Valproate [Mass/Vol] 59.1 ug/mL Normal 50.0-100.0 [facility] Comment on above: Order Comment: Speci men Type: BLOOD SPECIMEN Ordering Facility: [facility] Address: [address] [place] [address] Result Comment: Refe rence ranges and high/low indicator flags are provided as general guidelines only. The treating physician must determine appropriate target levels/dosing based on the specific clinical situation. Performed By: #### 5 [id number] #### [facility] [id number] [address] [place] [address] [place] CNPNon 07-07-2023 CNPN Telephone (NE50MN) SARA PICHARDO ([id number]) 03 [facility] Date Time Provider Department 07/07/23 KENTRELL ABDULLAHI NE50MN During your visit today, we recorded the following information about you: Alda Greco 07/07/2023 3:59 PM Signed General call : Full name of person calling: Paulina Garcia Relationship to patient: mother Phone # : [phone] Reason for call: Mother states the patient has pain from kidney stone and is being treated. Wants to know if they should continue treatment tomorrow. Patient of Funmilayo Andrews (Rn), RN 07/07/2023 4:26 PM Signed Via regulatory scientist, spoke to Ms. Garcia. Advised to follow up with Dr. Roper office regarding infusion as ordering physician. She verbalized understanding. Funmilayo Silva, MIKE Allergies As of Date: 07/07/2023 Noted Allergy Reaction BEES 01/08/2010 10 - Anaphylaxis Date Reviewed: 06/26/2023 Reviewed by: Bhavani Gomez MA - Fully Assessed Reason for Visit: General [Other] Cmt: Treatment for Kidney Stone Prescriptions as of 07/07/2023 - topiramate XR (QUDEXY XR) 100 mg cap(s) Take 8 capsules by mouth daily at bedtime. Take with one 50 mg capsule = total dose 850 mg at bedtime - topiramate XR (QUDEXY XR) 50 mg cap(s) Take 1 capsule by mouth daily at bedtime. - divalproex DR (DEPAKOTE) 250 mg EC tablet Take 1 tablet by mouth daily at 6 pm. daily dose 1000mg in the morning and 1250mg at night - Cholecalciferol, Vitamin D3, (VITAMIN D) 25 mcg (1,000 unit) cap Take 2 capsules by mouth once daily. - divalproex DR (DEPAKOTE) 500 mg EC tablet Take 2 tablets by mouth two times a day. daily dose 1000mg in the morning and 1250mg at night - THERAPEUTIC-M 9 mg iron-400 mcg tablet Take 1 tablet by mouth once daily. - diazePAM (VALTOCO) 20 mg/2 spray (10mg/0.1mL x2) nasal spray Use 1 [place] in each nostril as needed for seizures lasting longer than 3 minutes (For seziures > 3 minutes or 3 seizures in 30 minutes.). - guanFACINE (TENEX) 1 mg tablet Take 1 tablet by mouth once daily. - topiramate XR (QUDEXY XR) 200 mg cap(s) Take 4 capsules by mouth daily at bedtime. daily dose is 850mg - OLANZapine orally disintegrating (ZYPREXA ZYDIS) 5 mg disintegrating tablet Take 1 tablet by mouth as needed. - ibuprofen (MOTRIN) 200 mg tablet Take 2 tablets by mouth every 6 hours as needed for Pain or Fever. - docusate sodium (COLACE) 100 mg capsule Take 1 capsule by mouth twice daily. 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 Intractable epilepsy (HCC) [G40.919] 11/26/2016 06/01/2018 Dcad-W-favhvq-D-aspar anderson (NMDA) receptor encep*10/27/2005 09/20/2021 Vitamin D deficiency [E55.9] 06/01/2018 Urinary incontinence [R32] 06/01/2018 Syncope [R55] 06/01/2018 Low blood pressure [I95.9] 06/01/2018 Tdbw-G-eoctsa-D-aspar anderson (NMDA) receptor encep* Developmental delay [R62.50] 01/09/2020 Behavior problem in pediatric patient [R46.89] 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 S/P brain surgery [Z98.890] 02/12/2018 06/01/2018 Epilepsy (HCC) [G40.909] 01/13/2018 S/P craniotomy [Z98.890] 05/26/2018 Cerebral edema (HCC) [G93.6] 05/31/2018 09/20/2021 Physical deconditioning [R53.81] 06/02/2018 09/20/2021 Seizure-like activity (HCC) [R56.9] 02/04/2020 Acne [L70.9] 02/04/2020 ADHD (attention deficit hyperactivity disorder)*02/08/2021 Adjustment disorder with mixed anxiety and depr*02/08/2021 History of encephalitis [Z86.61] 11/01/2021 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 Haider dated 06/26/2023: Please write a letter addressed to immigration and saying that I take care of Sara who has epilepsy and an intellectual disability and parents are the main caregivers for him so it is very important that parent continue to oversee his care. Email letter to email in file. Please review, revise or approve the following letter: Immigration Office, I have had the pleasure of treating Sara Pichardo in the management of his epilepsy since November of 2012. 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 His epilepsy is managed with medications. Sara requires a caregiver to maintain his multiple daily medications and appointment since he is unable to drive or make his own medical decisions. Due to his intellectual disability, Sara's parents oversee his care and are his main caregivers. It is very important and recommended that his parents continue to oversee his care. If you have any questions, please do not hesitate to contact the office. Sincerely - === Routed to MIKE Botello Elia, MD 06/29/2023 5:31 PM Signed Letter looks good. MD Ricardo Vegas Kimberly A (Rn), RN 06/30/2023 9:04 AM Signed Letter forwarded to Dr. Haider for signature via Modti. MIKE Browne Kimberly A (Rn), RN 07/07/2023 4:38 PM Signed Signature completed by Dr. Haider and forwarded to email on file. Funmilayo Silva RN Allergies As of Date: 06/29/2023 Noted Allergy Reaction BEES 01/08/2010 10 - Anaphylaxis Date Reviewed: 06/26/2023 Reviewed by: Bhavani Gomez MA - Fully Assessed Reason for Visit: Letter [264] Prescriptions as of 07/07/2023 - topiramate XR (QUDEXY XR) 100 mg cap(s) Take 8 capsules by mouth daily at bedtime. Take with one 50 mg capsule = total dose 850 mg at bedtime - topiramate XR (QUDEXY XR) 50 mg cap(s) Take 1 capsule by mouth daily at bedtime. - divalproex DR (DEPAKOTE) 250 mg EC tablet Take 1 tablet by mouth daily at 6 pm. daily dose 1000mg in the morning and 1250mg at night - Cholecalciferol, Vitamin D3, (VITAMIN D) 25 mcg (1,000 unit) cap Take 2 capsules by mouth once daily. - divalproex DR (DEPAKOTE) 500 mg EC tablet Take 2 tablets by mouth two times a day. daily dose 1000mg in the morning and 1250mg at night - THERAPEUTIC-M 9 mg iron-400 mcg tablet Take 1 tablet by mouth once daily. - diazePAM (VALTOCO) 20 mg/2 spray (10mg/0.1mL x2) nasal spray Use 1 [place] in each nostril as needed for seizures lasting longer than 3 minutes (For seziures > 3 minutes or 3 seizures in 30 minutes.). - guanFACINE (TENEX) 1 mg tablet Take 1 tablet by mouth once daily. - topiramate XR (QUDEXY XR) 200 mg cap(s) Take 4 capsules by mouth daily at bedtime. daily dose is 850mg - OLANZapine orally disintegrating (ZYPREXA ZYDIS) 5 mg disintegrating tablet Take 1 tablet by mouth as needed. - ibuprofen (MOTRIN) 200 mg tablet Take 2 tablets by mouth every 6 hours as needed for Pain or Fever. - docusate sodium (COLACE) 100 mg capsule Take 1 capsule by mouth twice daily. Problem List As Of Date 06/29/2023 Noted Resolved FEEDING PROBLEM [R63.30] 12/11/2005 03/12/2007 CONSTIPATION NOS [K59.00] 03/26/2006 03/12/2007 GASTROSTOMY COMPLICATION NOS [K94.20] 03/26/2006 03/12/2007 ESOPHAGEAL REFLUX [K21.9] 05/07/2006 03/12/2007 Abdominal pain [R10.9] 07/16/2011 02/08/2018 Movement disorder [G25.9] 09/29/2012 06/01/2018 Intermittent explosive disorder [F63.81] 09/25/2014 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*08/28/2015 Intractable epilepsy (HCC) [G40.919] 11/26/2016 06/01/2018 Ztxd-M-rcyiol-D-aspar anderson (NMDA) receptor encep*10/27/2005 09/20/2021 Vitamin D deficiency [E55.9] 06/01/2018 Urinary incontinence [R32] 06/01/2018 Syncope [R55] 06/01/2018 Low blood pressure [I95.9] 06/01/2018 Ffrr-Y-rzbnhh-D-aspar anderson (NMDA) receptor encep* Developmental delay [R62.50] 01/09/2020 Behavior problem in pediatric patient [R46.89] 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 S/P brain surgery [Z98.890] 02/12/2018 06/01/2018 Epilepsy (HCC) [G40.909] 01/13/2018 S/P craniotomy [Z98.890] 05/26/2018 Cerebral edema (HCC) [G93.6] 05/31/2018 09/20/2021 Physical deconditioning [R53.81] 06/02/2018 09/20/2021 Seizure-like activity (HCC) [R56.9] 02/04/2020 Acne [L70.9] 02/04/2020 ADHD (attention deficit hyperactivity disorder)*02/08/2021 Adjustment disorder with mix (more content not included)... Normal [facility] CNOVon 06-26-2023 CNOV Office Visit (NEPC ) SARA PICHARDO ([id number]) 03 [facility] Date Time Provider Department 06/26/23 3:20 PM KENTRELL ABDULLAHI [facility] During your visit today, we recorded the following information about you: Temperature Pulse Blood pressure Weight 95.5 degrees 57/minute 111/44 71.8 kg Height 1.735 m Kentrell Abdullahi MD 06/29/2023 9:13 AM Signed [facility] Section of Pediatric Epilepsy/Neurology [facility], Neurological [place] Date of Service: 06/26/2023 RETURN VISIT NOTE HISTORY SINCE LAST VISIT: The patient has returned for follow-up regarding generalized and focal epilepsy, well controlled movement disorder, mild to moderate cognitive impairment and behavioral problems secondary to acute encephalitis of unknown etiology at age 1 years. He also has syncope and low blood pressure.Also concern for psychogenic spells and panic attacks. Sara can with his mother who speaks Gambian. Interview in Gambian. Similar illness that occurred in his 2 year old sister on July 2015 has clarified that Sara illness could have been also NMDA encephalitis. Sara sister is completely recovered from her illness as February 2017 and off of steroids. Sara had a surgical resection right mesial frontal corticeptomy on 05/26/[address] Tomi Maki. 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 - Subpial gliosis. - Focal perivascular white matter atrophy. Neuropsych testing March 2022: Full IQ extremely low (see office visit from 04/01/2021) [place], his mother, has the power of trademark attorney for Sara. Seizure brake though due to adherence problems and covid infection in August 2021. 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 He recoved plasmapherisis, IVIG, steroids and Rituximab. Interval update: This is a 17 year old right handed male who was last seen by me on February 2023 during VEEG. Sara came to the office visit with his father. I spoke to Sara's mother on the phone. Both parents provided updates. No seizures. Sister reported she saw a seizure at home but parents has not seen anything for a long time. Main concern if weight loss but he is returning to his growth curve. No issues with Depakote an topiramate He is going to the gym now. He is deconditioned. Sara will start working soon in [employer]. . Records reviewed: medical chart, previous clinic and test reports, and interim phone calls and notations. VEEG February 2023: Sara Pichardo is a 17 year old right handed male with a prior history of generalized and focal epilepsy, well controlled movement disorder, mild to moderate cognitive impairment and behavioral problems secondary to acute encephalitis of unknown etiology at age 1 years, s/p R mesial frontal lobe resection (04/2018, Dr. Tomi Maki). 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 Roper, [facility] 10/2022. Sara was admitted to [facility] for evaluation of treatment response. He recently had seizures increment in the setting of flu and Covid infections. Sara underwent retirement video EEG from 03/14- . Anti seizure medications were continued during this evaluation. He did not have any seizures. Interictal EEG showed normal posterior background of 9-10 hz and asymmetric sleep structures increased in the right hemisphere, continuous slowing in the right centroparietal more than temporal region with intermittent rhythmic slowing in the right temporal. 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 Interictal EEG shows sharp waves in the right central parietal (equipotential) can be very negative at F4/C4/Fz at times. The patient was discharged home in stable condition. No changes to anti seizure medications were made (Depakote Dr 1000mg - 1250mg at night and Topiramate XR 850mg at dinner time) . Seizure precautions were reiterated. Yann will follow up with Dr Meliza Smith in 3 months Major health event/concerns since last visit: see HPI.. Side effects that could be medication related: none Previous antiepileptic medications trials: Phenytoin, clonazepam and Depakote eas efficacious for seizures but caused abdominal pain and GI bleeding when he was young , Vimpat had lack of efficacy at dose 300mg/day, Xcopri lack of efficacy DEVELOPMENT/SCHOOL/PS YCHOSOCIAL UPDATE: As and Bs at school which is a significant improvement. Overall Sense of Well Being Since Last Visit: better Driving Status: N (more content not included)... [facility] 06-19-2023 [facility] Telephone (NE50MN) SARA PICHARDO ([id number]) [address] [facility] Date Time Provider Department 06/19/23 KENTRELL ABDULLAHI NE50MN During your visit today, we recorded the following information about you: Aby Carvajal 06/19/2023 3:27 PM Signed Prior Authorization Needed: Received by: Fax Requested by (pharmacy name): [facility] Phone number: [phone] Name of medication: topiramate Strength and dosage: 100mg Insurance company name and phone #: [email or web address] Patient ID: [id number] PCN #: BIN#: Group #: Patient of Funmilayo Casas (Rn), RN 06/19/2023 4:01 PM Signed PA completed via ePA. Marked urgent. Will wait for determination. MIKE Browne Kimberly A (Rn), RN 06/22/2023 8:30 AM Signed Prior authorization approved Payer: [facility] Your PA request for [id number] was approved for 168 days. The PA# assigned is [id number]. Approval Details Authorization number: [id number] Authorized from May 22, 2023 to November 06, 2023 Funmilayo Silva RN Allergies As of Date: 06/19/2023 Noted Allergy Reaction BEES 01/08/2010 10 - Anaphylaxis Date Reviewed: 05/10/2023 Reviewed by: Michael Roper MD - Fully Assessed Reason for Visit: Insurance Authorization [[id number]] Cmt: topiramate Prescriptions as of 06/22/2023 - topiramate XR (QUDEXY XR) 100 mg cap(s) Take 8 capsules by mouth daily at bedtime. Take with one 50 mg capsule = total dose 850 mg at bedtime - topiramate XR (QUDEXY XR) 50 mg cap(s) Take 1 capsule by mouth daily at bedtime. - guanFACINE (TENEX) 1 mg tablet Take 1 tablet by mouth once daily. - divalproex DR (DEPAKOTE) 250 mg EC tablet Take 250 mg by mouth daily at 6 pm. - topiramate XR (QUDEXY XR) 200 mg cap(s) Take 4 capsules by mouth daily at bedtime. daily dose is 850mg - Cholecalciferol, Vitamin D3, (VITAMIN D) 25 mcg (1,000 unit) cap Take 2 capsules by mouth once daily. - divalproex DR (DEPAKOTE) 500 mg EC tablet Take 2 tablets by mouth two times a day. - THERAPEUTIC-M 9 mg iron-400 mcg tablet Take 1 tablet by mouth once daily. - diazePAM (VALTOCO) 20 mg/2 spray (10mg/0.1mL x2) nasal spray Use 2 Sprays in the nose as needed (For seziures longer than 3 minutes or 3 seizures in 30 minutes.). - OLANZapine orally disintegrating (ZYPREXA ZYDIS) 5 mg disintegrating tablet Take 1 tablet by mouth as needed. - ibuprofen (MOTRIN) 200 mg tablet Take 2 tablets by mouth every 6 hours as needed for Pain or Fever. - docusate sodium (COLACE) 100 mg capsule Take 1 capsule by mouth twice daily. Problem List As Of Date 06/19/2023 Noted Resolved FEEDING PROBLEM [R63.30] 12/11/2005 03/12/2007 CONSTIPATION NOS [K59.00] 03/26/2006 03/12/2007 GASTROSTOMY COMPLICATION NOS [K94.20] 03/26/2006 03/12/2007 ESOPHAGEAL REFLUX [K21.9] 05/07/2006 03/12/2007 Abdominal pain [R10.9] 07/16/2011 02/08/2018 Movement disorder [G25.9] 09/29/2012 06/01/2018 Intermittent explosive disorder [F63.81] 09/25/2014 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*08/28/2015 Intractable epilepsy (HCC) [G40.919] 11/26/2016 06/01/2018 Xflf-Q-vjyjbm-D-aspar anderson (NMDA) receptor encep*10/27/2005 09/20/2021 Vitamin D deficiency [E55.9] 06/01/2018 Urinary incontinence [R32] 06/01/2018 Syncope [R55] 06/01/2018 Low blood pressure [I95.9] 06/01/2018 Fwqc-B-negmlv-D-aspar anderson (NMDA) receptor encep* Developmental delay [R62.50] 01/09/2020 Behavior problem in pediatric patient [R46.89] 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 S/P brain surgery [Z98.890] 02/12/2018 06/01/2018 Epilepsy (HCC) [G40.909] 01/13/2018 S/P craniotomy [Z98.890] 05/26/2018 Cerebral edema (HCC) [G93.6] 05/31/2018 09/20/2021 Physical deconditioning [R53.81] 06/02/2018 09/20/2021 Seizure-like activity (HCC) [R56.9] 02/04/2020 Acne [L70.9] 02/04/2020 ADHD (attention deficit hyperactivity disorder)*02/08/2021 Adjustment disorder with mixed anxiety and depr*02/08/2021 History of encephalitis [Z86.61] 11/01/2021 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 Malnutrition of moderate degree (HCC) [E44.0] 12/18/2021 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] 03/14/2023 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 Child has 4 pills left. Can a script for 100 mg be sent to [facility] instead? Patient of Funmilayo Casas (Rn), RN 06/19/2023 12:38 PM Signed Date of service: June 19, 2023 Sara Pichardo is a 17 year old Last seen by Dr. Haider on 03/14/2023 Now requesting topiramate XR refill - 200 mg backordered -30 day supply of 100 mg Prescription appropriate, please file and document electronically. Thank you. Routed to MIKE Betancourt Kimberly A (Rn), RN 06/19/2023 5:09 PM Signed PA approved. Pharmacy notified. Funmilayo Silva RN Allergies As of Date: 06/19/2023 Noted Allergy Reaction BEES 01/08/2010 10 - Anaphylaxis Date Reviewed: 05/10/2023 Reviewed by: Michael Roper MD - Fully Assessed Reason for Visit: Medication Problem [65] Cmt: Qudexy 100 mg is requested because [facility] unable to supply Qudexy 200 mg per mom; child has 4 pills left Primary Visit Diagnosis:Localizatio n-related epilepsy with complex partial seizures with intractable epilepsy (HCC) [G40.219] Order(s):topiramate XR (QUDEXY XR) 100 mg cap(s)Take 8 capsules by mouth daily at bedtime. Take with one 50 mg capsule = total dose 850 mg at bedtimeDisp: 240 capsuleRfl: 0 Prescriptions as of 06/19/2023 - topiramate XR (QUDEXY XR) 100 mg cap(s) Take 8 capsules by mouth daily at bedtime. Take with one 50 mg capsule = total dose 850 mg at bedtime - topiramate XR (QUDEXY XR) 50 mg cap(s) Take 1 capsule by mouth daily at bedtime. - guanFACINE (TENEX) 1 mg tablet Take 1 tablet by mouth once daily. - divalproex DR (DEPAKOTE) 250 mg EC tablet Take 250 mg by mouth daily at 6 pm. - topiramate XR (QUDEXY XR) 200 mg cap(s) Take 4 capsules by mouth daily at bedtime. daily dose is 850mg - Cholecalciferol, Vitamin D3, (VITAMIN D) 25 mcg (1,000 unit) cap Take 2 capsules by mouth once daily. - divalproex DR (DEPAKOTE) 500 mg EC tablet Take 2 tablets by mouth two times a day. - THERAPEUTIC-M 9 mg iron-400 mcg tablet Take 1 tablet by mouth once daily. - diazePAM (VALTOCO) 20 mg/2 spray (10mg/0.1mL x2) nasal spray Use 2 Sprays in the nose as needed (For seziures longer than 3 minutes or 3 seizures in 30 minutes.). - OLANZapine orally disintegrating (ZYPREXA ZYDIS) 5 mg disintegrating tablet Take 1 tablet by mouth as needed. - ibuprofen (MOTRIN) 200 mg tablet Take 2 tablets by mouth every 6 hours as needed for Pain or Fever. - docusate sodium (COLACE) 100 mg capsule Take 1 capsule by mouth twice daily. Problem List As Of Date 06/19/2023 Noted Resolved FEEDING PROBLEM [R63.30] 12/11/2005 03/12/2007 CONSTIPATION NOS [K59.00] 03/26/2006 03/12/2007 GASTROSTOMY COMPLICATION NOS [K94.20] 03/26/2006 03/12/2007 ESOPHAGEAL REFLUX [K21.9] 05/07/2006 03/12/2007 Abdominal pain [R10.9] 07/16/2011 02/08/2018 Movement disorder [G25.9] 09/29/2012 06/01/2018 Intermittent explosive disorder [F63.81] 09/25/2014 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*08/28/2015 Intractable epilepsy (HCC) [G40.919] 11/26/2016 06/01/2018 Lhwc-M-gtslok-D-aspar anderson (NMDA) receptor encep*10/27/2005 09/20/2021 Vitamin D deficiency [E55.9] 06/01/2018 Urinary incontinence [R32] 06/01/2018 Syncope [R55] 06/01/2018 Low blood pressure [I95.9] 06/01/2018 Iivl-X-mcwopv-D-aspar anderson (NMDA) receptor encep* Developmental delay [R62.50] 01/09/2020 Behavior problem in pediatric patient [R46.89] 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 S/P brain surgery [Z98.890] 02/12/2018 06/01/2018 Epilepsy (HCC) [G40.909] 01/13/2018 S/P craniotomy [Z98.890] 05/26/2018 Cerebral edema (HCC) [G93.6] 05/31/2018 09/20/2021 Physical deconditioning [R53.81] 06/02/2018 09/20/2021 Seizure-like activity (HCC) [R56.9] 02/04/2020 Acne [L70.9] 02/04/2020 ADHD (attention deficit hyperactivity disorder)*02/08/2021 Adjustment disorder with mixed anxiety and depr*02/08/2021 History of encephalitis [Z86.61] 11/01/2021 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 Take with one 50 mg capsule = total dose 850 m (more content not included)... Normal [facility] [place] 05-22-2023 [facility] Telephone (VERONICAN) SARA PICHARDO ([id number]) [address] [facility] Date Time Provider Department 05/22/23 KENTRELL ABDULLAHI During your visit today, we recorded the following information about you: Funmilayo Silva (Rn), RN 05/22/2023 4:06 PM Signed Spoke to pharmacist. Topiramate requiring PA d/t quantity limits. Spoke to [facility]. Stated PA on file is for 50 mg caps not 200 mg. Verbal PA given. Office notes faxed to: [phone] Will wait for determination within 24 hours. MIKE Browne Adm Asst, Alda 05/25/2023 12:33 PM Signed Received approval for Qudexy XR 200mg from [facility]. Approval Dates: 05/22/23 through 11/06/23. REF #: [id number] Approval uploaded to [employer]. Funmilayo Silva), MIKE 05/25/2023 1:02 PM Signed Pharmacy notified. Funmilayo Silva RN Allergies As of Date: 05/22/2023 Noted Allergy Reaction BEES 01/08/2010 10 - Anaphylaxis Date Reviewed: 05/10/2023 Reviewed by: Michael Roper MD - Fully Assessed Reason for Visit: Medication Authorization [1699] Cmt: PA for Topiramate/Qudexy Prescriptions as of 05/25/2023 - topiramate XR (QUDEXY XR) 50 mg cap(s) Take 1 capsule by mouth daily at bedtime. - guanFACINE (TENEX) 1 mg tablet Take 1 tablet by mouth once daily. - divalproex DR (DEPAKOTE) 250 mg EC tablet Take 250 mg by mouth daily at 6 pm. - topiramate XR (QUDEXY XR) 200 mg cap(s) Take 4 capsules by mouth daily at bedtime. daily dose is 850mg - Cholecalciferol, Vitamin D3, (VITAMIN D) 25 mcg (1,000 unit) cap Take 2 capsules by mouth once daily. - divalproex DR (DEPAKOTE) 500 mg EC tablet Take 2 tablets by mouth two times a day. - THERAPEUTIC-M 9 mg iron-400 mcg tablet Take 1 tablet by mouth once daily. - diazePAM (VALTOCO) 20 mg/2 spray (10mg/0.1mL x2) nasal spray Use 2 Sprays in the nose as needed (For seziures longer than 3 minutes or 3 seizures in 30 minutes.). - OLANZapine orally disintegrating (ZYPREXA ZYDIS) 5 mg disintegrating tablet Take 1 tablet by mouth as needed. - ibuprofen (MOTRIN) 200 mg tablet Take 2 tablets by mouth every 6 hours as needed for Pain or Fever. - docusate sodium (COLACE) 100 mg capsule Take 1 capsule by mouth twice daily. Problem List As Of Date 05/22/2023 Noted Resolved FEEDING PROBLEM [R63.30] 12/11/2005 03/12/2007 CONSTIPATION NOS [K59.00] 03/26/2006 03/12/2007 GASTROSTOMY COMPLICATION NOS [K94.20] 03/26/2006 03/12/2007 ESOPHAGEAL REFLUX [K21.9] 05/07/2006 03/12/2007 Abdominal pain [R10.9] 07/16/2011 02/08/2018 Movement disorder [G25.9] 09/29/2012 06/01/2018 Intermittent explosive disorder [F63.81] 09/25/2014 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*08/28/2015 Intractable epilepsy (HCC) [G40.919] 11/26/2016 06/01/2018 Smzq-S-eqhpsz-D-aspar anderson (NMDA) receptor encep*10/27/2005 09/20/2021 Vitamin D deficiency [E55.9] 06/01/2018 Urinary incontinence [R32] 06/01/2018 Syncope [R55] 06/01/2018 Low blood pressure [I95.9] 06/01/2018 Raid-Z-lwyabe-D-aspar anderson (NMDA) receptor encep* Developmental delay [R62.50] 01/09/2020 Behavior problem in pediatric patient [R46.89] 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 S/P brain surgery [Z98.890] 02/12/2018 06/01/2018 Epilepsy (HCC) [G40.909] 01/13/2018 S/P craniotomy [Z98.890] 05/26/2018 Cerebral edema (HCC) [G93.6] 05/31/2018 09/20/2021 Physical deconditioning [R53.81] 06/02/2018 09/20/2021 Seizure-like activity (HCC) [R56.9] 02/04/2020 Acne [L70.9] 02/04/2020 ADHD (attention deficit hyperactivity disorder)*02/08/2021 Adjustment disorder with mixed anxiety and depr*02/08/2021 History of encephalitis [Z86.61] 11/01/2021 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 Malnutrition of moderate degree (HCC) [E44.0] 12/18/2021 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] 03/14/2023 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] 03/15/2023 Encounter Status:Closed by FUNMILAYO SILVA on 05/25/23 Normal [facility] CNOVon 05-08-2023 CNOV Office Visit (NEPNMN ) SARA PICHARDO ([id number]) 03 [facility] Date Time Provider Department 05/08/23 11:20 AM MICHAEL ROPER During your visit today, we recorded the following information about you: Temperature Pulse Respiration Blood pressure 98.6 degrees 52/minute 20/minute 112/61 Weight Height 73 kg 1.74 m Michael Roper MD 05/10/2023 7:11 PM Signed Pediatric [facility] Out[facility] Date of Service: 05/08/2023 CC: NMDA-R encephalitis on rituximab Interval History: Repeat serum NMDA-R antibodies decreased from 1:160 to 1:20. Saw Cardiology, no concerns. 3 weeks ago had flu-like symptoms, everyone at home was sick. Still has some cough. Family doctor thought he might have some residual bronchitis which they are monitoring. Not interested in getting COVID booster or flu shots despite my strong recommendation since he is on rituximab. Takes guanfacine in morning to help with his mood per Dr. Vaz. Started working but lost job because he was ill. Trying to find a different job. Will message my nurse to make sure next infusion gets scheduled for June 2023. Needs copy of neuropsych testing, will message Dr. Palomino. R>L UE tremor still present, occasionally drops things, although better after they had weaned down the Oxtellar. Discussed propanolol trial but they do not want to add more meds at this time. They are interested in OT. No other concerns. Visit 11/07/2022: Patient presents in person today, accompanied by Dad. This is a follow up visit with me. Continues on rituximab, no issues. No concern for relapse. Everything is going well. More alert, responsive today. Not as much mood swings, no more fighting. Follows with Dr. Vaz. Reports a couple weeks ago patient was running, then became really short of breath, which then resolved. Has not recurred since. Reminded still needs to follow up with outside Drug Inspector for prior abnormal EKG. Dad now says prefers to have referral to [facility] Cardiology so I have ordered this. Leg pain has completely resolved. Completed all therapies, no ongoing concerns. Graduated high school and will be going to trade school. Will also continue receiving speech therapy through the school. Tremors have improved with weaning down Oxtellar and increasing Topamax per [facility]psy team. Has had a few seizures likely due to missed meds. Has not scheduled with primary care doctor. Reminded Dad to schedule. No other new or worsening neurological concerns. 06/18/2022 Visit: Patient appears virtually with Dad. Per Dad, Sara last week got very angry and was fighting with sister. Dad tried to calm him down and he started fighting with Dad. Took a while to calm down, then got a panic attack where was breathing really fast and was squeezing a ball to help. Also was more sleepy at school and this has been happening more frequently. Maybe 3 weeks ago he had a flu-like illness. No viral testing was done at that time. No other new or worsening neurologic symptoms reported. Sara seen briefly on video today, appears calm. 05/02/2022 Visit: Patient presents in person today, accompanied by Dad. Next 6-month rituximab infusion scheduled for 07/21/2022 in [facility]. Received his 2 induction doses in Dec 2021 without incident. Doing well overall. No other new or worsening neurological concerns noted. No suggestion of relapse. No recent infections. Having some trouble with hands and notes when trying to lift spoons his hands can shake. Dad concerned could be related to seizure meds, plans to follow up with Dr. Gibbs. Total vitamin D level in target range at 50. Complaining of occasional pain in L posterior leg region behind knee, advised will order ultrasound and x-ray and refer to Ortho. No weakness or neuropathic features. Also advised needs to establish with primary care doctor, Dad requesting a referral. Creatinine a bit elevated, BP ok, last platelet count 126.advised to follow up with primary care for this. Possible also related to anti-seizure meds as rituximab does not typically result in these abnormalities. Doing physical therapy once per week at [facility]. Unable to see any of outside cushion worker's results in chart. Advised needs to follow up with Cardiology given their following note at last visit: Patient with history of NMDA receptor antibody, recurrent epilepsy. Here to establish care. No cardiac symptoms or previous cardiac issues apart from abnormal EKG showing sinus rhythm with possible LVH. Vitals stable. Given associated between MD or septal and item number dysfunction with reported history of dysrhythmias, recommend obtaining echocardiogram for baseline cardiac function and morphology. Also obtain one-week event monitor to screen for any possible under noticed arr (more content not included)... Normal [facility] ALLIED HEALTHon 03-16-2023 ALLIED HEALTH HNO ID: [id number] Author: Alan Sun Chaplain Service: Spiritual Care Author Type: Collet Maker Type: Allied Health Filed: 03/16/2023 10:32 AM Note Text: Accepted anoint.,bless. Normal [facility] CNDSon 03-16-2023 CNDS HNO ID: [id number] Author: Kentrell Abdullahi MD Service: Pediatric Epilepsy Author Type: Physician Type: Discharge Summary Filed: 03/16/2023 3:45 PM Note Text: DISCHARGE SUMMARY PATIENT NAME: Sara Pichardo ADMISSION DATE: 03/14/2023 DISCHARGE DATE: 03/16/2023 ADMITTING SERVICE: Epilepsy ATTENDING PHYSICIAN: Kentrell Abdullahi MD Code Status: Full Code Referring/Secondary Physician: Dr. Meliza Smith MD Highest Readmission Risk Score: 11 The 30 day readmissions risk score is derived from an internally validated risk model which evaluates patient level characteristics, utilization history, medication orders and lab results up until the day of discharge. Patients with a score of 40 or above are considered highest risk for readmission. Specific patient level drivers will be listed at the bottom of the summary. The 30 day readmissions risk score is derived from an internally validated risk model which evaluates patient level characteristics, utilization history, medication orders and lab results up until the day of discharge. Patients with a score of 40 or above are considered highest risk for readmission. Specific patient level drivers will be listed at the bottom of the summary. REASON FOR HOSPITALIZATION: Seizure burden assessment and updated EEG IMPORTANT TESTS AND PROCEDURES: Continuous Video EEG HOSPITAL COURSE: 17 year old right handed male with a history of generalized and focal medically refractory epilepsy since age 1 years admitted to the PMU for seizure burden assessment, follows with Dr. Haider with V 03/06/23, on TPM and VPA prior to admission. 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 Maki). 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 Roper, [facility] 10/2022. ASMs continued during admission. Free VPA 10.9 and TPM 19.3 - both wnl. CBC with plt mildly low at 148 (though above baseline for the past year), otherwise CBC unremarkable. CMP unremarkable. Patient did not have any clinical seizures during the admission, and no evidence on EEG concerning for seizures from 03/15-03/16. No ASMs changes made - discharged on home VPA and TPM with outpatient follow up with Dr. Roper and Dr. Meliza Smith. Principal Problem: 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calized onset, not intractable, without status epilepticus (HCC) (POA: Yes) Active Problems: Intermittent explosive disorder (POA: Yes) Pnyi-W-kcohxs-D-aspar anderson (NMDA) receptor encephalitis (POA: Yes) Developmental delay (POA: Yes) S/P craniotomy (POA: Yes) ADHD (attention deficit hyperactivity disorder), inattentive type (POA: Yes) History of encephalitis (POA: Yes) Refractory epilepsy (HCC) (POA: Yes) Anti-NMDAR encephalitis (POA: Unknown) Resolved Problems: * No resolved hospital problems. * Transitions of Care Critical Issues: NEW BASELINE FOR PATIENT: N/A IMAGING FOLLOW-UP: None LAB MONITORING NEEDED: None SPECIALIST FOLLOW-UP: Pediatric Neurology (Dr. Roper, 05/08/2023) [facility] MEDICATION CHANGES: None PROCEDURES SCHEDULED: None LABS AND PROCEDURES PENDING AT DISCHARGE: Finalized Video EEG Report CONSULTING TEAMS DURING HOSPITALIZATION: None Treatment Team: Attending Provider: Kentrell Abdullahi MD PATIENT CONDITION AT DISCHARGE: Stable DISCHARGE DISPOSITION: Home with Parent Discharge Physical Exam: VITAL SIGNS: BP 113/58 Pulse 65 Temp 36.3 ?C (97.4 ?F) (Oral) Resp 20 Wt 74.7 kg (164 lb 10.9 oz) SpO2 98% BMI 24.67 kg/m? GENERAL: Alert, no acute distress, cooperative SKIN: Skin color, texture, turgor normal. No rashes or lesions. HEENT: Normocephalic, atraumatic. Anicteric sclera. Moist mucous membranes. LUNGS: Unlabored on room air. ABDOMEN: Non-distended. EXTREMITIES: Extremities normal, no cyanosis or edema NEUROLOGICAL EXAMINATION: Mental Status: Alert, oriented to person, place, month, year. Speaking in full sentences, though slow to respond at times. The pupils were 4mm symmetrical, round, and reactive to light and accommodation. The visual pryor were intact to confrontation. The ocular ductions were full. There was no evidence for gaze evoked nystagmus. The visual pursuits were smooth with normal saccadic eye movements. Facial sensations were intact bilaterally. There was no evidence for facial asymmetry. Hearing was normal bilaterally and the tongue and palate were in midline. Sternomastoids and upper trapezius 5/5. Muscle tone examination showed normal tone and the (more content not included)... Normal [facility] NURSING PROGon 03-16-2023 NURSING PROG HNO ID: [id number] Author: Zohra Shin RN Service: ? Author Type: Registered Nurse Type: Nursing Progress Note Filed: 03/16/2023 5:04 PM Note Text: Nursing Progress Note Topic of Note: Daily Note PATIENT NAME: Sara Pichardo Patient Location: M052 [id number]/M052-06 Room: [place] [address] Received report from MIKE Domingo this a.m. Patient currently resting comfortably in bed. Patient remains on CR monitor, continuous pox and EEG. Upon waking, patient alert and oriented and without complaints of pain. Patient tolerating Regular diet well and up to bathroom with assistance to void. Patient with no IV access, per order. Patient without clinical seizure activity noted throughout the shift. Patient's assessment complete and documented in the NPR. Will continue to monitor throughout the shift. This note was completed by: Zohra Shin Normal [facility] CBC W Auto Differential pane l (Bld)on 03-14-2023 Basophils (Bld) [#/Vol] 10*3/uL Normal <0.11 [facility] Comment on above: Order Comment: Speci men Type: BLOOD SPECIMEN Ordering Facility: [facility] Address: [address] [place] [address] Performed By: #### 7 3752-8 #### [facility] CLIA [id number] [address] [place] [address] [place] Basophils/100 WBC (Bld) 0.4 % Normal [facility] Comment on above: Order Comment: Speci jocy Type: BLOOD SPECIMEN Ordering Facility: [facility] Address: [address] [place] [address] Performed By: #### 7 3752-8 #### [facility] CLIA [id number] [address] [place] [address] [place] Differential cell count method Nom (Bld) Auto Normal [facility] Comment on above: Order Comment: Speci men Type: BLOOD SPECIMEN Ordering Facility: [facility] Address: [address] [place] [address] Performed By: #### 7 3752-8 #### [facility] CLIA [id number] [address] [place] [address] [place] Eosinophils (Bld) [#/Vol] 0.06 10*3/uL Normal <0.46 [facility] Comment on above: Order Comment: Speci men Type: BLOOD SPECIMEN Ordering Facility: [facility] Address: [address] Performed By: #### 7 3752-8 #### [facility] CLIA [id number] [address] [place] [address] [place] Eosinophils/100 WBC (Bld) 1.1 % Normal [facility] Comment on above: Order Comment: Speci men Type: BLOOD SPECIMEN Ordering Facility: [facility] Address: [address] Performed By: #### 7 3752-8 #### [facility] CLIA [id number] [address] [place] [address] [place] Erythrocyte distribution width (RBC) [Ratio] 12.1 % Normal 11.5-15.0 [facility] Comment on above: Order Comment: Speci men Type: BLOOD SPECIMEN Ordering Facility: [facility] Address: [address] Performed By: #### 7 3752-8 #### [facility] CLIA [id number] [address] [place] [address] [place] Hematocrit (Bld) [Volume fraction] 44.7 % Normal 39.0-51.0 [facility] Comment on above: Order Comment: Speci men Type: BLOOD SPECIMEN Ordering Facility: [facility] Address: [address] Performed By: #### 7 3752-8 #### [facility] CLIA [id number] [address] [place] [address] [place] Hemoglobin (Bld) [Mass/Vol] 15.3 g/dL Normal 13.0-17.0 [facility] Comment on above: Order Comment: Speci men Type: BLOOD SPECIMEN Ordering Facility: [facility] Address: [address] Performed By: #### 7 3752-8 #### [facility] CLIA [id number] [address] [place] [address] [place] Immature granulocytes (Bld) [#/Vol] 0.04 10*3/uL Normal <0.10 [facility] Comment on above: Order Comment: Speci men Type: BLOOD SPECIMEN Ordering Facility: [facility] Address: [address] [place], [place] [id number] Performed By: #### 7 3752-8 #### [facility] CLIA [id number] [address] [place] [address] [place] Immature granulocytes/100 WBC (Bld) 0.7 % Normal [facility] Comment on above: Order Comment: Speci men Type: BLOOD SPECIMEN Ordering Facility: [facility] Address: [address] [place], [place] [id number] Performed By: #### 7 3752-8 #### [facility] CLIA [id number] [address] [place] [address] [place] Lymphocytes (Bld) [#/Vol] 2.00 10*3/uL Normal 1.00-4.00 [facility] Comment on above: Order Comment: Speci men Type: BLOOD SPECIMEN Ordering Facility: [facility] Address: [address] [place], [place] [id number] Performed By: #### 7 3752-8 #### [facility] CLIA [id number] [address] [place] [address] [place] Lymphocytes/100 WBC (Bld) 35.1 % Normal [facility] Comment on above: Order Comment: Speci men Type: BLOOD SPECIMEN Ordering Facility: [facility] Address: [address] [place], [place] [id number] Performed By: #### 7 3752-8 #### [facility] CLIA [id number] [address] [place] [address] [place] MCH (RBC) [Entitic mass] 31.5 pg Normal 26.0-34.0 [facility] Comment on above: Order Comment: Speci men Type: BLOOD SPECIMEN Ordering Facility: [facility] Address: [address] [place] [address] Performed By: #### 7 3752-8 #### [facility] CLIA [id number] [address] [place] [address] [place] MCHC (RBC) [Mass/Vol] 34.2 g/dL Normal 30.5-36.0 [facility] Comment on above: Order Comment: Speci men Type: BLOOD SPECIMEN Ordering Facility: [facility] Address: [address] [place] [address] Performed By: #### 7 3752-8 #### [facility] CLIA [id number] [address] [place] [address] [place] MCV (RBC) [Entitic vol] 92.0 fL Normal 80.0-100.0 [facility] Comment on above: Order Comment: Speci men Type: BLOOD SPECIMEN Ordering Facility: [facility] Address: [address] [place], [place] [id number] Performed By: #### 7 3752-8 #### [facility] CLIA [id number] [address] [place] [address] [place] Monocytes (Bld) [#/Vol] 0.29 10*3/uL Normal <0.87 [facility] Comment on above: Order Comment: Speci men Type: BLOOD SPECIMEN Ordering Facility: [facility] Address: [address] [place], [place] [id number] Performed By: #### 7 3752-8 #### [facility] CLIA [id number] [address] [place] [address] [place] Monocytes/100 WBC (Bld) 5.1 % Normal [facility] Comment on above: Order Comment: Speci men Type: BLOOD SPECIMEN Ordering Facility: [facility] Address: [address] [place] [address] Performed By: #### 7 3752-8 #### [facility] CLIA [id number] [address] [place] [address] [place] Neutrophils (Bld) [#/Vol] 3.28 10*3/uL Normal 1.45-7.50 [facility] Comment on above: Order Comment: Speci men Type: BLOOD SPECIMEN Ordering Facility: [facility] Address: [address] Performed By: #### 7 3752-8 #### [facility] CLIA [id number] [address] [place] [address] [place] Neutrophils/100 WBC (Bld) 57.6 % Normal [facility] Comment on above: Order Comment: Speci men Type: BLOOD SPECIMEN Ordering Facility: [facility] Address: [address] Performed By: #### 7 3752-8 #### [facility] CLIA [id number] [address] [place] [address] [place] Nucleated RBC (Bld) [#/Vol] 10*3/uL Normal <0.01 [facility] Comment on above: Order Comment: Speci men Type: BLOOD SPECIMEN Ordering Facility: [facility] Address: [address] [place] [address] Performed By: #### 7 3752-8 #### [facility] CLIA [id number] [address] [place] [address] [place] Nucleated RBC/100 WBC (Bld) [Ratio] 0.0 /100 WBC Normal [facility] Comment on above: Order Comment: Speci men Type: BLOOD SPECIMEN Ordering Facility: [facility] Address: [address] Performed By: #### 7 3752-8 #### [facility] CLIA [id number] [address] [place] [address] [place] Platelet mean volume (Bld) [Entitic vol] 11.0 fL Normal 9.0-12.7 [facility] Comment on above: Order Comment: Speci men Type: BLOOD SPECIMEN Ordering Facility: [facility] Address: [address] [place], [place] [id number] Performed By: #### 7 3752-8 #### [facility] CLIA [id number] [address] [place] [address] [place] Platelets (Bld) [#/Vol] 148 10*3/uL Low 150-400 [facility] Comment on above: Order Comment: Speci men Type: BLOOD SPECIMEN Ordering Facility: [facility] Address: [address] [place], [place] [address] Performed By: #### 7 3752-8 #### [facility] CLIA [id number] [address] [place] [address] [place] RBC (Bld) [#/Vol] 4.86 10*6/uL Normal 4.20-6.00 [facility] Comment on above: Order Comment: Speci men Type: BLOOD SPECIMEN Ordering Facility: [facility] Address: [address] [place], [place] [address] Performed By: #### 7 3752-8 #### [facility] CLIA [id number] [address] [place] [address] [place] WBC (Bld) [#/Vol] 5.69 10*3/uL Normal 3.70-11.00 [facility] Comment on above: Order Comment: Speci men Type: BLOOD SPECIMEN Ordering Facility: [facility] Address: [address] [place], [place] [id number] Performed By: #### 7 3752-8 #### [facility] CLIA [id number] [address] [place] [address] [place] Comprehensive metabolic 2000 panelon 03-14-2023 Albumin [Mass/Vol] 4.1 g/dL Normal 3.9-4.9 [facility] Comment on above: Order Comment: Speci men Type: BLOOD SPECIMENOrdering Facility: [facility] Address: [address] [place] [address] Performed By: #### 2 4323-8 ####[facility] LABCLIA [id number] [place] [address] [place] ALP [Catalytic activity/Vol] 74 U/L Normal 38-113 [facility] Comment on above: Order Comment: Speci men Type: BLOOD SPECIMENOrdering Facility: [facility] Address: [address] [place] [address] Performed By: #### 2 4323-8 ####[facility] LABCLIA [id number] [place] [address] [place] ALT [Catalytic activity/Vol] 14 U/L Normal 10-54 [facility] Comment on above: Order Comment: Speci men Type: BLOOD SPECIMENOrdering Facility: [facility] Address: [address] [place] [address] Performed By: #### 2 4323-8 ####[facility] LABCLIA [id number] [place] [address] [place] Anion gap [Moles/Vol] 11 mmol/L Normal 9-18 [facility] Comment on above: Order Comment: Speci men Type: BLOOD SPECIMENOrdering Facility: [facility] Address: [address] [place] [address] Performed By: #### 2 4323-8 ####[facility] LABCLIA [id number] [place] [address] [place] AST [Catalytic activity/Vol] 18 U/L Normal 14-40 [facility] Comment on above: Order Comment: Speci men Type: BLOOD SPECIMENOrdering Facility: [facility] Address: [address] [place] [address] Performed By: #### 2 4323-8 ####[facility] LABCLIA [id number] [address] [address] [place] Bilirubin [Mass/Vol] 0.2 mg/dL Normal 0.2-1.3 [facility] Comment on above: Order Comment: Speci men Type: BLOOD SPECIMENOrdering Facility: [facility] Address: [address] [place] [address] Performed By: #### 2 4323-8 ####[facility] LABCLIA [id number] [place] [address] [place] Calcium [Mass/Vol] 8.9 mg/dL Normal 8.5-10.2 [facility] Comment on above: Order Comment: Speci men Type: BLOOD SPECIMENOrdering Facility: [facility] Address: [address] [place] [address] Performed By: #### 2 4323-8 ####[facility] LABCLIA [id number] [place] [address] [place] Chloride [Moles/Vol] 112 mmol/L High 97-105 [facility] Comment on above: Order Comment: Speci men Type: BLOOD SPECIMENOrdering Facility: [facility] Address: [address] [place] [address] Performed By: #### 2 4323-8 ####[facility] LABCLIA [id number] [place] [address] [place] CO2 [Moles/Vol] 17 mmol/L Low 22-30 [facility] Comment on above: Order Comment: Speci men Type: BLOOD SPECIMENOrdering Facility: [facility] Address: [address] [place] [address] Performed By: #### 2 4323-8 ####[facility] LABCLIA [id number] [place] [id number] [place] Creatinine [Mass/Vol] 1.15 mg/dL Normal 0.73-1.22 [facility] Comment on above: Order Comment: Chaparro sandra Type: BLOOD SPECIMENOrdering Facility: [facility] Address: [address] [place] [address] Performed By: #### 2 4323-8 ####[facility] LABCLIA [id number] [place] [address] [place] Creatinine and Glomerular filtration rate.predicted panel (S/P/Bld) 94 mL/min/1.73m??? Normal >=60 [facility] Comment on above: Order Comment: Chaparro sandra Type: BLOOD SPECIMENOrdering Facility: [facility] Address: [address] [place] [address] Result Comment: Krystle mated Glomerular Filtration Rate (eGFR) is calculated using the 2020 CKD-EPI creatinine equation. This equation utilizes serum creatinine, sex, and age as parameters. The creatinine assay has traceable calibration to isotope dilution-mass spectrometry. Refer to KDIGO guidelines for clinical interpretation. In patients with unstable renal function, e.g. those with acute kidney injury, the eGFR may not accurately reflect actual GFR. Performed By: #### 2 4323-8 ####[facility] LABCLIA [id number] [place] [address] [place] Glucose [Mass/Vol] 85 mg/dL Normal 74-99 [facility] Comment on above: Order Comment: Chaparro sandra Type: BLOOD SPECIMENOrdering Facility: [facility] Address: [address] [place] [address] Result Comment: The [place] [employer] (ADA) provides guidance for cutoff values for fasting glucose and random glucose. The ADA defines fasting as no caloric intake for at least 8 hours. Fasting plasma glucose results between 100 to 125 mg/dL indicate increased risk for diabetes (prediabetes). Fasting plasma glucose results greater than or equal to 126 mg/dL meet the criteria for diagnosis of diabetes. In the absence of unequivocal hyperglycemia, results should be confirmed by repeat testing. In a patient with classic symptoms of hyperglycemia or hyperglycemic crisis, random plasma glucose results greater than or equal to 200 mg/dL meet the criteria for diagnosis of diabetes. Reference: Standards of Medical Care in Diabetes 2016, [place] [employer]. Diabetes Care. 2016.39(Suppl 1). Performed By: #### 2 4323-8 ####[facility] LABCLIA [id number] [place] [address] [place] Potassium [Moles/Vol] 3.7 mmol/L Normal 3.7-5.1 [facility] Comment on above: Order Comment: Speci men Type: BLOOD SPECIMENOrdering Facility: [facility] Address: [address] [place] [address] Performed By: #### 2 4323-8 ####[facility] LABCLIA [id number] [place] [address] [place] Protein [Mass/Vol] 6.9 g/dL Normal 6.3-8.0 [facility] Comment on above: Order Comment: Speci men Type: BLOOD SPECIMENOrdering Facility: [facility] Address: [address] [place] [address] Performed By: #### 2 4323-8 ####[facility] LABIA [id number] [place] [address] [place] Sodium [Moles/Vol] 140 mmol/L Normal 136-144 [facility] Comment on above: Order Comment: Speci men Type: BLOOD SPECIMENOrdering Facility: [facility] Address: [address] [place] [address] Performed By: #### 2 4323-8 ####[facility] LABCLIA [id number] [place] [address] [place] Urea nitrogen [Mass/Vol] 14 mg/dL Normal 9-24 [facility] Comment on above: Order Comment: Speci men Type: BLOOD SPECIMENOrdering Facility: [facility] Address: [address] [place] [address] Performed By: #### 2 4323-8 ####[facility] LABCLIA [id number] [place] [address] [place] Topiramate SerPl-mCncon 11-1 8-2023 Topiramate [Mass/Vol] 19.3 ug/mL Normal 5.0-20.0 [facility] Comment on above: Order Comment: Speci men Type: BLOOD SPECIMENOrdering Facility: [facility] Address: [address] [place] [address] Result Comment: Refe rence ranges and high/low indicator flags are provided as general guidelines only. The treating physician must determine appropriate target levels/dosing based on the specific clinical situation. This test was developed and its performance characteristics determined by [facility] [place] ([facility] It has not been cleared or approved by the FDA. [facility] is regulated under CLIA as qualified to perform high-complexity testing. This test is used for clinical purposes. It should not be regarded as investigational or for research. Performed By: #### 1 7713-9 ####[facility] LABCLIA [id number] [address] [place] Valproate Free SerPl-mCncon 03-14-2023 Valproate Free [Mass/Vol] 10.9 ug/mL Normal 4.0-30.0 [facility] Comment on above: Order Comment: Speci men Type: BLOOD SPECIMEN [facility] Address: [address] [place] [address] Result Comment: Refe rence ranges and high/low indicator flags are provided as general guidelines only. The treating physician must determine appropriate target levels/dosing based on the specific clinical situation. This test was developed and its performance characteristics determined by [facility] [place] ([facility]). It has not been cleared or approved by the FDA. [facility] is regulated under CLIA as qualified to perform high-complexity testing. This test is used for clinical purposes. It should not be regarded as investigational or for research. Performed By: #### 4 087-3 #### [facility] CLIA [id number] [address] [place] [address] [place] HISTORY PHYSICALon 3 HISTORY PHYSICAL HNO ID: [id number] Author: Kentrell Abdullahi MD Service: Pediatric Epilepsy Author Type: Physician Type: HANDP Filed: 03/15/2023 1:07 PM Note Text: NEURO EPILEPSY ADMIT NOTE SERVICE DATE: 03/14/2023 SERVICE TIME: 9:26 AM NIGHT AND WEEKEND COVERAGE: After 5 pm and over the weekends, please page [phone] to contact the epilepsy resident/fellow/provi yesy maori liaison adviser ATTENDING PHYSICIAN: Dr. 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 Maki). 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 Roper, [facility] 10/2022. Has had history of multiple different seizure types. Most recently complex motor seizures captured in 2021, non-localizable. Three weeks ago, Sara was sick cough, cold with bronchitis symptoms, completed course of antibiotics. Flu and strep were negative. Saw Dr. Haider in clinic 03/06, increased Depakote from [address] am / [address] pm to [address] am / [address] pm. Since increasing medication change, has noticed significant improvement in seizure frequency, has not had any seizures since Mar 06. Mother describing event with complex motor movement with VICKI, lasting <1 min, did not require Valtoco. CURRENT AEDs (Anti-Epileptic Drugs): -Topiramate XR 850 mg at bedtime - last dose 03/13 at 21:00 -Depakote DR 1000 mg AM / 1250 mg dinner -last dose 03/14 at 09:00 -Rescue: Valtoco, 2 sprays in one nostril for seizures lasting more than 3 minutes. PRIOR ANTICONVULSANT HISTORY: Phenytoin, clonazepam and Depakote - efficacious for seizures but caused abdominal pain and GI bleeding when he was young Oxcarbazepine XR - most recently stopped in Dec 2022 Vimpat- lack of efficacy at dose 300mg/day Xcopri - lack of efficacy SEIZURE HISTORY: Per most recent outpatient clinic visit note with Dr. Haider 03/06/2023: Date of Service: 03/06/2023s HISTORY SINCE LAST VISIT: The patient has returned for follow-up regarding generalized and focal epilepsy, well controlled movement disorder, mild to moderate cognitive impairment and behavioral problems secondary to acute encephalitis of unknown etiology at age 1 years. He also has syncope and low blood pressure.Also concern for psychogenic spells and panic attacks. Sara can with his mother who speaks Gambian. Interview in Gambian. Similar illness that occurred in his 2 year old sister on July 2015 has clarified that Sara illness could have been also NMDA encephalitis. Sara sister is completely recovered from her illness as February 2017 and off of steroids. Sara had a surgical resection right mesial frontal corticeptomy on 05/26/[address] Tomi Maki. 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 - Subpial gliosis. - Focal perivascular white matter atrophy. Neuropsych testing March 2022: Full IQ extremely low (see office visit from 04/01/2021) Sinai, his mother, has the power of trademark attorney for Sara. Seizure brake though due to adherence problems and covid infection in August 2021. 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 He recoved plasmapherisis, IVIG, steroids and Rituximab. Interval update: This is a 17 year old right handed male who was last seen by me on October 2022. Seizures have relapsed with around 4 seizures since the last visit. All around 5 in the morning Seizure are short, No rescue medication needed. Seizures occurred when he was sick with the flu. He is no off Oxtellar completely. He is tolerating well Depakote and topiramate in combination. Some fine tremor as side effects of Depakote. He was working in in [place] but his job was cancelled because he had the flu and he has been sick. Mother and his sister Monika are also sick at home with the flu. CURRENT SEIZURE TYPES: Seizure type 1. Gene (more content not included)... Normal [facility] CNOVon 03-06-2023 CNOV Office Visit (NEPEMN ) JACOBSARA ([id number]) [address] [facility] Date Time Provider Department 03/06/23 11:20 AM KENTRELL ABDULLAHI During your visit today, we recorded the following information about you: Temperature Pulse Respiration Blood pressure 97.8 degrees 76/minute 20/minute 132/59 Weight Height 75.1 kg 1.74 m Kentrell Abdullahi MD 03/06/2023 12:02 PM Signed [facility] Section of Pediatric Epilepsy/Neurology Epilepsy Center, Neurological [place] Date of Service: 03/06/2023 RETURN VISIT NOTE HISTORY SINCE LAST VISIT: The patient has returned for follow-up regarding generalized and focal epilepsy, well controlled movement disorder, mild to moderate cognitive impairment and behavioral problems secondary to acute encephalitis of unknown etiology at age 1 years. He also has syncope and low blood pressure.Also concern for psychogenic spells and panic attacks. Sara can with his mother who speaks Gambian. Interview in Gambian. Similar illness that occurred in his 2 year old sister on July 2015 has clarified that Sara illness could have been also NMDA encephalitis. Sara sister is completely recovered from her illness as February 2017 and off of steroids. Sara had a surgical resection right mesial frontal corticeptomy on 05/26/[address] Tomi Maki. 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 - Subpial gliosis. - Focal perivascular white matter atrophy. Neuropsych testing March 2022: Full IQ extremely low (see office visit from 04/01/2021) Sinai, his mother, has the power of trademark attorney for Sara. Seizure brake though due to adherence problems and covid infection in August 2021. 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 He recoved plasmapherisis, IVIG, steroids and Rituximab. Interval update: This is a 17 year old right handed male who was last seen by me on October 2022. Seizures have relapsed with around 4 seizures since the last visit. All around 5 in the morning Seizure are short, No rescue medication needed. Seizures occurred when he was sick with the flu. He is no off Oxtellar completely. He is tolerating well Depakote and topiramate in combination. Some fine tremor as side effects of Depakote. He was working in in [place] but his job was cancelled because he had the flu and he has been sick. Mother and his sister Monika are also sick at home with the flu. Records reviewed: medical chart, previous clinic and test reports, and interim phone calls and notations. Latest Reference Range AND Units 05/16/22 13:37 11/07/22 12:19 Valproic Acid 50.0 - 100.0 ug/mL 65.3 10Hydroxycarbazepine 3.0 - 35.0 ug/mL 29.3 4.7 Latest Reference Range AND Units 05/16/22 13:37 11/07/22 12:19 Topiramate 5.0 - 20.0 ug/mL 13.9 18.2 Major health event/concerns since last visit: see HPI.. Side effects that could be medication related: none Previous antiepileptic medications trials: Phenytoin, clonazepam and Depakote eas efficacious for seizures but caused abdominal pain and GI bleeding when he was young , Vimpat had lack of efficacy at dose 300mg/day, Xcopri lack of efficacy DEVELOPMENT/SCHOOL/PS YCHOSOCIAL UPDATE: As and Bs at school which is a significant improvement. Overall Sense of Well Being Since Last Visit: better Driving Status: Not driving. Medications listed as of 03/06/2023 [SEE PLAN BELOW FOR CHANGES MADE TODAY]: Current Outpatient Medications Medication Sig topiramate XR (QUDEXY XR) 200 mg cap(s) Take 4 capsules by mouth daily at bedtime. daily dose is 850mg topiramate XR (QUDEXY XR) 50 mg cap(s) Take 1 capsule by mouth once daily. Cholecalciferol, Vitamin D3, (VITAMIN D) 25 mcg (1,000 unit) cap Take 2 capsules by mouth once daily. divalproex DR (DEPAKOTE) 500 mg EC tablet Take 2 tablets by mouth twice daily. THERAPEUTIC-M 9 mg iron-400 mcg tablet Take 1 tablet by mouth once daily. therapeutic multivitamin (THERA VITAMIN) tablet Take 1 tablet by mouth once daily. diazePAM (VALTOCO) 20 mg/2 spray (10mg/0.1mL x2) nasal spray Use 2 Sprays in the nose as needed (For seziures longer than 3 minutes or 3 seizures in 30 minutes.). OLANZapine orally disintegrating (ZYPREXA ZYDIS) 5 mg disintegrating tablet Take 1 tablet by mouth as needed. OXcarbazepine ER (OXTELLAR XR) 300 mg tablet Take 6 tablets by mouth daily at bedtime. (Patient not taking: Reported on 01/07/2023) ibuprofen (MOTRIN) 200 mg tablet Take 2 tablets by mouth every 6 hours as needed for Pain or Fever. docusate sodium (COLACE) 100 mg capsule Take 1 capsule by mouth twice daily. No current facility-administered medications for this visit. Vital Signs - 03/06/2023: BP 132/59 (BP Site: Left Arm, BP Posi (more content not included)... Normal [facility] AUTOIMMUNE ENCEPHALOPATHY EV ALUATION, SERUMon 01-07-2023 AMPA-R AB CBA, S Negative Normal Negative Lore persaud [facility] Comment on above: Order Comment: Speci men Type: BLOOD SPECIMEN [facility] Address: [address] [place] [address] Result Comment: ADDITIONAL INFORMATION This test was developed and its performance characteristics determined by [facility] in a manner consistent with CLIA requirements. This test has not been cleared or approved by the U.S. Food and Drug Administration. Performed By: #### 7 3752-8 #### [facility] CLIA [id number] [address] [place] [address] OF [place] AMPHIPHYSIN AB Negative Normal Negative [facility] Comment on above: Order Comment: Chaparro sandra Type: BLOOD SPECIMEN [facility] Address: [address] [place] [address] Result Comment: ADDITIONAL INFORMATION This test was developed and its performance characteristics determined by [facility] in a manner consistent with CLIA requirements. This test has not been cleared or approved by the U.S. Food and Drug Administration. Performed By: #### 7 3752-8 #### [facility] CLIA [id number] [address] [place] [address] [place] ANTI-GLIAL NUCLEAR AB, TYPE 1 Negative Normal Negative [facility] Comment on above: Order Comment: Chaparro sandra Type: BLOOD SPECIMEN [facility] Address: [address] [place] [address] Result Comment: ADDITIONAL INFORMATION This test was developed and its performance characteristics determined by [facility] in a manner consistent with CLIA requirements. This test has not been cleared or approved by the U.S. Food and Drug Administration. Performed By: #### 7 3752-8 #### [facility] CLIA [id number] [address] [place] [address] OF [place] ANTI-NEURONAL NUC AB, TYPE 1 Negative Normal Negative [facility] Comment on above: Order Comment: Chaparro sandra Type: BLOOD SPECIMEN [facility] Address: [address] [place] [address] Result Comment: ADDITIONAL INFORMATION This test was developed and its performance characteristics determined by [facility] in a manner consistent with CLIA requirements. This test has not been cleared or approved by the U.S. Food and Drug Administration. Performed By: #### 7 3752-8 #### [facility] CLIA [id number] [address] [place] [address] ANTI-NEURONAL NUC AB, TYPE 2 Negative Normal Negative [facility] Comment on above: Order Comment: Chaparro sandra Type: BLOOD SPECIMEN [facility] Address: [address] [place] [address] Result Comment: ADDITIONAL INFORMATION This test was developed and its performance characteristics determined by [facility] in a manner consistent with CLIA requirements. This test has not been cleared or approved by the U.S. Food and Drug Administration. Performed By: #### 7 3752-8 #### [facility] CLIA [id number] [address] [place] [address] ANTI-NEURONAL NUC AB, TYPE 3 Negative Normal Negative [facility] Comment on above: Order Comment: Chaparro sandra Type: BLOOD SPECIMEN [facility] Address: [address] [place] [address] Result Comment: ADDITIONAL INFORMATION This test was developed and its performance characteristics determined by [facility] in a manner consistent with CLIA requirements. This test has not been cleared or approved by the U.S. Food and Drug Administration. Performed By: #### 7 3752-8 #### [facility] CLIA [id number] [address] [place] [address] [place] CASPR2-IGG CBA S Negative Normal Negative [facility] Comment on above: Order Comment: Chaparro sandra Type: BLOOD SPECIMEN [facility] Address: [address] [place] [address] Result Comment: ADDITIONAL INFORMATION This test was developed and its performance characteristics determined by [facility] in a manner consistent with CLIA requirements. This test has not been cleared or approved by the U.S. Food and Drug Administration. Performed By: #### 7 3752-8 #### [facility] CLIA [id number] [address] [place] [address] [place] CRMP-5, IGG Negative Normal Negative [facility] Comment on above: Order Comment: Chaparro sandra Type: BLOOD SPECIMEN [facility] Address: [address] [place] [address] Result Comment: ADDITIONAL INFORMATION This test was developed and its performance characteristics determined by [facility] in a manner consistent with CLIA requirements. This test has not been cleared or approved by the U.S. Food and Drug Administration. Performed By: #### 7 3752-8 #### [facility] CLIA [id number] [address] [place] [address] [place] DPPX AB IFA, S Negative Normal Negative [facility] Comment on above: Order Comment: Chaparro sandra Type: BLOOD SPECIMEN Ordering Facility: [facility] Address: [address] [place] [address] Result Comment: ADDITIONAL INFORMATION This test was developed and its performance characteristics determined by [facility] in a manner consistent with CLIA requirements. This test has not been cleared or approved by the U.S. Food and Drug Administration. Performed By: #### 7 3752-8 #### [facility] CLIA [id number] [address] [place] [address] [place] ENCEPHALOPATHY INTERPRETATION SEE NOTE Normal [facility] Comment on above: Order Comment: Chaparro sandra Type: BLOOD SPECIMEN Ordering Facility: [facility] Address: [address] [place] [address] Result Comment: The following antibody was identified: R-Eyqtgc-O-Aspartate Receptor. * The patient's specimen was previously evaluated in this laboratory. In comparison to earlier findings, the following is noted: Previous positive result for K-Oeptjw-I-Aspartate Receptor (NMDA-R). * NMDA-R antibody was detected when tested at 1:10 dilution by cell-based assay only. Higher titers of antibody were not detected by reflex testing at 1:240 dilution by tissue-based assay. Although this profile in the proper clinical context may support an autoimmune neurological disorder, NMDA receptor antibody detected in serum by cell-based assay alone may be encountered in patients without autoimmune neurological disorder. * References: Keron et al, Antibody titres at diagnosis and during follow-up of anti-NMDA receptor encephalitis: a retrospective study. Lancet Neurol. 2014;13:167-77. * Deion Oliver, Hardik DUMONT. NMDAR encephalitis: which specimens, and the value of values. Lancet Neurol. 2014;13:133-5. * Performed By: #### 7 3752-8 #### [facility] CLIA [id number] [address] [place] [address] [place] ERIC-B-R AB CBA, S Negative Normal Negative [facility] Comment on above: Order Comment: Chaparro sandra Type: BLOOD SPECIMEN Ordering Facility: [facility] Address: [address] [place] [address] Result Comment: ADDITIONAL INFORMATION This test was developed and its performance characteristics determined by [facility] in a manner consistent with CLIA requirements. This test has not been cleared or approved by the U.S. Food and Drug Administration. Performed By: #### 7 3752-8 #### [facility] CLIA [id number] [address] [place] [address] [place] GAD65 ANTIBODY 0.00 nmol/L Normal <= 0.02 [facility] Comment on above: Order Comment: Chaparro sandra Type: BLOOD SPECIMEN Ordering Facility: [facility] Address: [address] [place] [address] Result Comment: ADDITIONAL INFORMATION This test was developed and its performance characteristics determined by [facility] in a manner consistent with CLIA requirements. This test has not been cleared or approved by the U.S. Food and Drug Administration. Performed By: #### 7 3752-8 #### [facility] CLIA [id number] [address] [place] [address] [place] GFAP IFA, S Negative Normal Negative [facility] Comment on above: Order Comment: Chaparro sandra Type: BLOOD SPECIMEN Ordering Facility: [facility] Address: [address] [place] [address] Result Comment: ADDITIONAL INFORMATION This test was developed and its performance characteristics determined by [facility] in a manner consistent with CLIA requirements. This test has not been cleared or approved by the U.S. Food and Drug Administration. Performed By: #### 7 3752-8 #### [facility] CLIA [id number] [address] [place] [address] [place] IFA NOTES - ENCSER None. Normal [facility] Comment on above: Order Comment: Chaparro sandra Type: BLOOD SPECIMEN Ordering Facility: [facility] Address: [address] [place] [address] Performed By: #### 7 3752-8 #### [facility] CLIA [id number] [address] [place] [address] [place] IGLON5 IFA, S Negative Normal Negative [facility] Comment on above: Order Comment: Chaparro sandra Type: BLOOD SPECIMEN Ordering Facility: [facility] Address: [address] [place] [address] Result Comment: ADDITIONAL INFORMATION This test was developed and its performance characteristics determined by [facility] in a manner consistent with CLIA requirements. This test has not been cleared or approved by the U.S. Food and Drug Administration. Performed By: #### 7 3752-8 #### [facility] CLIA [id number] [address] [place] [address] [place] LGI1-IGG CBA SERUM Negative Normal Negative [facility] Comment on above: Order Comment: Chaparro sandra Type: BLOOD SPECIMEN Ordering Facility: [facility] Address: [address] [place] [address] Result Comment: ADDITIONAL INFORMATION This test was developed and its performance characteristics determined by [facility] in a manner consistent with CLIA requirements. This test has not been cleared or approved by the U.S. Food and Drug Administration. Performed By: #### 7 3752-8 #### [facility] CLIA [id number] [address] [place] [address] [place] MGLUR1 AB IFA, S Negative Normal Negative [facility] Comment on above: Order Comment: Chaparro sandra Type: BLOOD SPECIMEN Ordering Facility: [facility] Address: [address] [place] [address] Result Comment: ADDITIONAL INFORMATION This test was developed and its performance characteristics determined by [facility] in a manner consistent with CLIA requirements. This test has not been cleared or approved by the U.S. Food and Drug Administration. Performed By: #### 7 3752-8 #### [facility] CLIA [id number] [address] [place] [address] [place] NEUROCHONDRIN IFA , S Negative Normal Negative [facility] Comment on above: Order Comment: Chaparro sandra Type: BLOOD SPECIMEN Ordering Facility: [facility] Address: [address] [place] [address] Result Comment: ADDITIONAL INFORMATION This test was developed and its performance characteristics determined by [facility] in a manner consistent with CLIA requirements. This test has not been cleared or approved by the U.S. Food and Drug Administration. Performed By: #### 7 3752-8 #### [facility] CLIA [id number] [address] [place] [address] [place] NIF IFA, S Negative Normal Negative [facility] Comment on above: Order Comment: Chaparro sandra Type: BLOOD SPECIMEN Ordering Facility: [facility] Address: [address] [place] [address] Result Comment: ADDITIONAL INFORMATION This test was developed and its performance characteristics determined by [facility] in a manner consistent with CLIA requirements. This test has not been cleared or approved by the U.S. Food and Drug Administration. Performed By: #### 7 3752-8 #### [facility] CLIA [id number] [address] [place] [address] [place] NMDA-R AB CBA, S Positive High Negative [facility] Comment on above: Order Comment: Chaparro sandra Type: BLOOD SPECIMEN Ordering Facility: [facility] Address: [address] [place] [address] Result Comment: ADDITIONAL INFORMATION This test was developed and its performance characteristics determined by [facility] in a manner consistent with CLIA requirements. This test has not been cleared or approved by the U.S. Food and Drug Administration. Performed By: #### 7 3752-8 #### [facility] CLIA [id number] [address] [place] [address] PURKINJE CELL CYTO AB, TYPE 1 Negative Normal Negative [facility] Comment on above: Order Comment: Chaparro sandra Type: BLOOD SPECIMEN Ordering Facility: [facility] Address: [address] [place] [address] Result Comment: ADDITIONAL INFORMATION This test was developed and its performance characteristics determined by [facility] in a manner consistent with CLIA requirements. This test has not been cleared or approved by the U.S. Food and Drug Administration. Performed By: #### 7 3752-8 #### [facility] CLIA [id number] [address] [place] [address] PURKINJE CELL CYTO AB, TYPE 2 Negative Normal Negative [facility] Comment on above: Order Comment: Chaparro sandra Type: BLOOD SPECIMEN Ordering Facility: [facility] Address: [address] [place] [address] Result Comment: ADDITIONAL INFORMATION This test was developed and its performance characteristics determined by [facility] in a manner consistent with CLIA requirements. This test has not been cleared or approved by the U.S. Food and Drug Administration. Performed By: #### 7 3752-8 #### [facility] CLIA [id number] [address] [place] [address] PURKINJE CELL CYTO AB, TYPE TR Negative Normal Negative [facility] Comment on above: Order Comment: Chaparro sandra Type: BLOOD SPECIMEN Ordering Facility: [facility] Address: [address] [place] [address] Result Comment: ADDITIONAL INFORMATION This test was developed and its performance characteristics determined by [facility] in a manner consistent with CLIA requirements. This test has not been cleared or approved by the U.S. Food and Drug Administration. Performed By: #### 7 3752-8 #### [facility] CLIA [id number] [address] [place] [address] [place] SEPTIN-7 IFA, S Negative Normal Negative [facility] Comment on above: Order Comment: Chaparro sandra Type: BLOOD SPECIMEN Ordering Facility: [facility] Address: [address] [place] [address] Result Comment: ADDITIONAL INFORMATION This test was developed and its performance characteristics determined by [facility] in a manner consistent with CLIA requirements. This test has not been cleared or approved by the U.S. Food and Drug Administration. Test Performed by: [address] [address] Oncology Nurse Navigator: Tk Williamson M.D. Ph.D.; CLIA# [id number] Performed By: #### 7 3752-8 #### [facility] CLIA [id number] [address] [place] [address] [place] BLOOD TB SCREENon 01-07-2023 M. tuberculosis tuberculin stim IFN-g Ql (Bld) Negative Normal [facility] Comment on above: Order Comment: Chaparro sandra Type: BLOOD SPECIMEN Ordering Facility: [facility] Address: [address] [place] [address] Performed By: #### 7 3752-8 #### [facility] CLIA [id number] [address] [place] [address] [place] MITOGEN MINUS NIL >9.78 Normal >=0.50 [facility] Comment on above: Order Comment: Speci jocy Type: BLOOD SPECIMEN Ordering Facility: [facility] Address: [address] [place] [address] Performed By: #### 7 3752-8 #### [facility] CLIA [id number] [address] [place] [address] [place] TB GAMMA INTERPRETATION Infection with M. tuberculosis complex is unlikely. If latent tuberculosis infection is highly suspected, a negative result does not rule out the infection. Specimens from immunocompromised patients and those <5 years of age may show false negative results. In case of a contact investigation, please repeat 8-12 weeks after a known exposure. Normal [facility] Comment on above: Order Comment: Chaparro sandra Type: BLOOD SPECIMEN Ordering Facility: [facility] Address: [address] [place] [address] Performed By: #### 7 3752-8 #### [facility] CLIA [id number] [address] [place] [address] OF [place] TB NIL 0.22 IU/mL Normal <=8.00 [facility] Comment on above: Order Comment: Chaparro sandra Type: BLOOD SPECIMEN Ordering Facility: [facility] Address: [address] [place] [address] Performed By: #### 7 3752-8 #### [facility] CLIA [id number] [address] [place] [address] [place] TB1 AG MINUS NIL <0.00 Normal <0.35 [facility] Comment on above: Order Comment: Maria Ci jocy Type: BLOOD SPECIMEN Ordering Facility: [facility] Address: [address] [place] [address] Performed By: #### 7 3752-8 #### [facility] CLIA [id number] [address] [place] [address] [place] TB2 AG MINUS NIL <0.00 Normal <0.35 [facility] Comment on above: Order Comment: Speci men Type: BLOOD SPECIMEN Ordering Facility: [facility] Address: [address] [place] [address] Performed By: #### 7 3752-8 #### [facility] CLIA [id number] [address] [place] [address] [place] CBC W Auto Differential pane l (Bld)on 01-07-2023 Basophils (Bld) [#/Vol] <0.11 k/uL [facility] Basophils/100 WBC (Bld) 0.2 % Normal [facility] Comment on above: Order Comment: Speci men Type: BLOOD SPECIMENOrdering Facility: [facility] Address: [address] [address] Performed By: #### 5 7021-8 ####[facility] [id number] [place] [address] [place] Differential cell count method Nom (Bld) Auto Normal [facility] Comment on above: Order Comment: Speci men Type: BLOOD SPECIMENOrdering Facility: [facility] Address: [address] [address] Performed By: #### 5 7021-8 ####[facility] [id number] [place] [address] [place] Eosinophils (Bld) [#/Vol] 0.05 10*3/uL Normal <0.46 [facility] Comment on above: Order Comment: Speci men Type: BLOOD SPECIMENOrdering Facility: [facility] Address: [address] [address] Performed By: #### 5 7021-8 ####[facility] [id number] [place] [address] Eosinophils/100 WBC (Bld) 0.8 % Normal [facility] Comment on above: Order Comment: Speci men Type: BLOOD SPECIMENOrdering Facility: [facility] Address: [address] [address] Performed By: #### 5 7021-8 ####[facility] [id number] [address] OF [place] Erythrocyte distribution width (RBC) [Ratio] 12.6 % Normal 11.5-15.0 [facility] Comment on above: Order Comment: Speci men Type: BLOOD SPECIMENOrdering Facility: [facility] Address: [address] [place], [place] [address] Performed By: #### 5 7021-8 ####[facility] [id number] [place] [address] OF [place] Hematocrit (Bld) [Volume fraction] 46.7 % Normal 39.0-51.0 [facility] Comment on above: Order Comment: Speci men Type: BLOOD SPECIMENOrdering Facility: [facility] Address: [address] [place] [address] Performed By: #### 5 7021-8 ####[facility] [id number] [place] [address] [place] Hemoglobin (Bld) [Mass/Vol] 15.8 g/dL Normal 13.0-17.0 [facility] Comment on above: Order Comment: Speci men Type: BLOOD SPECIMENOrdering Facility: [facility] Address: [address] [place], [place] [address] Performed By: #### 5 7021-8 ####[facility] [id number] [place] [address] STATES [facility] Immature granulocytes (Bld) [#/Vol] 0.03 10*3/uL Normal <0.10 [facility] Comment on above: Order Comment: Speci men Type: BLOOD SPECIMENOrdering Facility: [facility] Address: [address] [place], [place] [address] Performed By: #### 5 7021-8 ####[facility] [id number] [place] [address] [place] Immature granulocytes/100 WBC (Bld) 0.5 % Normal [facility] Comment on above: Order Comment: Speci men Type: BLOOD SPECIMENOrdering Facility: [facility] Address: [address] [place] [address] Performed By: #### 5 7021-8 ####[facility] [id number] [place] [address] [place] Lymphocytes (Bld) [#/Vol] 2.07 10*3/uL Normal 1.00-4.00 [facility] Comment on above: Order Comment: Speci men Type: BLOOD SPECIMENOrdering Facility: [facility] Address: [address] [place] [address] Performed By: #### 5 7021-8 ####[facility] [id number] [place] [address] Lymphocytes/100 WBC (Bld) 33.1 % Normal [facility] Comment on above: Order Comment: Speci men Type: BLOOD SPECIMENOrdering Facility: [facility] Address: [address] [place] [address] Performed By: #### 5 7021-8 ####[facility] [id number] [place] [address] STATES OF [facility] MCH (RBC) [Entitic mass] 31.3 pg Normal 26.0-34.0 [facility] Comment on above: Order Comment: Speci men Type: BLOOD SPECIMENOrdering Facility: [facility] Address: [address] [place] [address] Performed By: #### 5 7021-8 ####[facility] [id number] [place] [address] MCHC (RBC) [Mass/Vol] 33.8 g/dL Normal 30.5-36.0 [facility] Comment on above: Order Comment: Speci men Type: BLOOD SPECIMENOrdering Facility: [facility] Address: [address] Performed By: #### 5 7021-8 ####[facility] [id number] [place] [address] STATES [facility] MCV (RBC) [Entitic vol] 92.5 fL Normal 80.0-100.0 [facility] Comment on above: Order Comment: Speci men Type: BLOOD SPECIMENOrdering Facility: [facility] Address: [address] [place], [place] [address] Performed By: #### 5 7021-8 ####[facility] [id number] [place] [address] [place] Monocytes (Bld) [#/Vol] 0.47 10*3/uL Normal <0.87 [facility] Comment on above: Order Comment: Speci men Type: BLOOD SPECIMENOrdering Facility: [facility] Address: [address] [place], [place] [address] Performed By: #### 5 7021-8 ####[facility] [id number] [place] [address] [place] Monocytes/100 WBC (Bld) 7.5 % Normal [facility] Comment on above: Order Comment: Speci men Type: BLOOD SPECIMENOrdering Facility: [facility] Address: [address] [place], [place] [address] Performed By: #### 5 7021-8 ####[facility] [id number] [place] [address] [place] Neutrophils (Bld) [#/Vol] 3.63 10*3/uL Normal 1.45-7.50 [facility] Comment on above: Order Comment: Speci men Type: BLOOD SPECIMENOrdering Facility: [facility] Address: [address] [place], [place] [address] Performed By: #### 5 7021-8 ####[facility] [id number] [place] [address] [place] Neutrophils/100 WBC (Bld) 57.9 % Normal [facility] Comment on above: Order Comment: Speci men Type: BLOOD SPECIMENOrdering Facility: [facility] Address: [address] [place] [address] Performed By: #### 5 7021-8 ####[facility] [id number] [place] [address] [place] Nucleated RBC (Bld) [#/Vol] <0.01 k/uL [facility] Nucleated RBC/100 WBC (Bld) [Ratio] 0.0 /100 WBC Normal [facility] Comment on above: Order Comment: Speci men Type: BLOOD SPECIMENOrdering Facility: [facility] Address: [address] [place] [address] Performed By: #### 5 7021-8 ####[facility] [id number] [place] [address] [place] Platelet mean volume (Bld) [Entitic vol] 11.0 fL Normal 9.0-12.7 [facility] Comment on above: Order Comment: Speci men Type: BLOOD SPECIMENOrdering Facility: [facility] Address: [address] [place] [address] Performed By: #### 5 7021-8 ####[facility] [id number] [place] [address] [place] Platelets (Bld) [#/Vol] 160 10*3/uL Normal 150-400 [facility] Comment on above: Order Comment: Speci men Type: BLOOD SPECIMENOrdering Facility: [facility] Address: [address] [place] [address] Performed By: #### 5 7021-8 ####[facility] [id number] [place] [address] [place] RBC (Bld) [#/Vol] 5.05 10*6/uL Normal 4.20-6.00 [facility] Comment on above: Order Comment: Speci men Type: BLOOD SPECIMENOrdering Facility: [facility] Address: [address] [address] Performed By: #### 5 7021-8 ####[facility] [id number] [place] [address] [place] WBC (Bld) [#/Vol] 6.26 10*3/uL Normal 3.70-11.00 [facility] Comment on above: Order Comment: Speci men Type: BLOOD SPECIMENOrdering Facility: [facility] Address: [address] [address] Performed By: #### 5 7021-8 ####[facility] [id number] [place] [address] [place] Basophils (Bld) [#/Vol] 10*3/uL Normal <0.11 [facility] Comment on above: Order Comment: Speci men Type: BLOOD SPECIMENOrdering Facility: [facility] Address: [address] [address] Performed By: #### 5 7021-8 ####[facility] [id number] [place] [address] STATES OF [place] Nucleated RBC (Bld) [#/Vol] 10*3/uL Normal <0.01 [facility] Comment on above: Order Comment: Speci men Type: BLOOD SPECIMENOrdering Facility: [facility] Address: [address] Performed By: #### 5 7021-8 ####[facility] [id number] [place] [address] [place] Comprehensive metabolic 2000 panelon 01-07-2023 Albumin [Mass/Vol] 4.5 g/dL Normal 3.9-4.9 [facility] Comment on above: Order Comment: Speci men Type: BLOOD SPECIMEN Ordering Facility: [facility] Address: [address] [place] [address] Performed By: #### 5 7021-8 #### [facility] [place] [id number] [address] [place] [address] [place] ALP [Catalytic activity/Vol] 73 U/L Normal 38-113 [facility] Comment on above: Order Comment: Speci men Type: BLOOD SPECIMEN Ordering Facility: [facility] Address: [address] [place] [address] Performed By: #### 5 7021-8 #### [facility] [id number] [address] [place] [address] [place] ALT [Catalytic activity/Vol] 15 U/L Normal 10-54 [facility] Comment on above: Order Comment: Speci men Type: BLOOD SPECIMEN Ordering Facility: [facility] Address: [address] [place] [address] Performed By: #### 5 7021-8 #### [facility] [id number] [address] [place] [address] [place] Anion gap [Moles/Vol] 11 mmol/L Normal 9-18 [facility] Comment on above: Order Comment: Speci men Type: BLOOD SPECIMEN Ordering Facility: [facility] Address: [address] [place] [address] Performed By: #### 5 7021-8 #### [facility] [id number] [address] [place] [address] [place] AST [Catalytic activity/Vol] 16 U/L Normal 14-40 [facility] Comment on above: Order Comment: Speci men Type: BLOOD SPECIMEN Ordering Facility: [facility] Address: [address] [place] [address] Performed By: #### 5 7021-8 #### [facility] [id number] [address] [place] [address] [place] Bilirubin [Mass/Vol] 0.5 mg/dL Normal 0.2-1.3 [facility] Comment on above: Order Comment: Speci men Type: BLOOD SPECIMEN Ordering Facility: [facility] Address: [address] [place] [address] Performed By: #### 5 7021-8 #### [facility] CLIA [id number] [address] [place] [address] [place] Calcium [Mass/Vol] 9.2 mg/dL Normal 8.5-10.2 [facility] Comment on above: Order Comment: Speci men Type: BLOOD SPECIMEN Ordering Facility: [facility] Address: [address] [place] [address] Performed By: #### 5 7021-8 #### [facility] [place] [id number] [address] [place] [address] [place] Chloride [Moles/Vol] 114 mmol/L High 97-105 [facility] Comment on above: Order Comment: Speci men Type: BLOOD SPECIMEN Ordering Facility: [facility] Address: [address] [place] [address] Performed By: #### 5 7021-8 #### [facility] [place] [id number] [address] [place] [address] [place] CO2 [Moles/Vol] 18 mmol/L Low 22-30 [facility] Comment on above: Order Comment: Speci men Type: BLOOD SPECIMEN Ordering Facility: [facility] Address: [address] [place] [address] Performed By: #### 5 7021-8 #### [facility] CLIA [id number] [address] [place] [address] [place] Creatinine [Mass/Vol] 0.82 mg/dL Normal 0.73-1.22 [facility] Comment on above: Order Comment: Speci men Type: BLOOD SPECIMEN Ordering Facility: [facility] Address: [address] [place] [address] Performed By: #### 5 7021-8 #### [facility] CLIA [id number] [address] [place] [address] [place] Estimated Glomerular Filtration Rate 130 mL/min/1.73m >=60 mL/min/1.73m [facility] Glucose [Mass/Vol] 83 mg/dL Normal 74-99 [facility] Comment on above: Order Comment: Speci men Type: BLOOD SPECIMEN Ordering Facility: [facility] Address: [address] [place] [address] Result Comment: The [place] [employer] (ADA) provides guidance for cutoff values for fasting glucose and random glucose. The ADA defines fasting as no caloric intake for at least 8 hours. Fasting plasma glucose results between 100 to 125 mg/dL indicate increased risk for diabetes (prediabetes). Fasting plasma glucose results greater than or equal to 126 mg/dL meet the criteria for diagnosis of diabetes. In the absence of unequivocal hyperglycemia, results should be confirmed by repeat testing. In a patient with classic symptoms of hyperglycemia or hyperglycemic crisis, random plasma glucose results greater than or equal to 200 mg/dL meet the criteria for diagnosis of diabetes. Reference: Standards of Medical Care in Diabetes 2016, [place] [employer]. Diabetes Care. 2016.39(Suppl 1). Performed By: #### 5 7021-8 #### [facility] CLIA [id number] [address] [place] [address] [place] Potassium [Moles/Vol] 3.7 mmol/L Normal 3.7-5.1 [facility] Comment on above: Order Comment: Speci men Type: BLOOD SPECIMEN Ordering Facility: [facility] Address: [address] [place] [address] Performed By: #### 5 7021-8 #### [facility] CLIA [id number] [address] [place] [address] [place] Protein [Mass/Vol] 7.1 g/dL Normal 6.3-8.0 [facility] Comment on above: Order Comment: Speci men Type: BLOOD SPECIMEN Ordering Facility: [facility] Address: [address] [place] [address] Performed By: #### 5 7021-8 #### [facility] CLIA [id number] [address] [place] [address] [place] Sodium [Moles/Vol] 143 mmol/L Normal 136-144 [facility] Comment on above: Order Comment: Speci men Type: BLOOD SPECIMEN Ordering Facility: [facility] Address: [address] [place] [address] Performed By: #### 5 7021-8 #### [facility] [id number] [address] [place] [address] [place] Urea nitrogen [Mass/Vol] 12 mg/dL Normal 9-24 [facility] Comment on above: Order Comment: Speci men Type: BLOOD SPECIMEN Ordering Facility: [facility] Address: [address] [place] [address] Performed By: #### 5 7021-8 #### [facility] [id number] [address] [place] [address] [place] Creatinine and Glomerular filtration rate.predicted panel (S/P/Bld) 130 mL/min/1.73m??? Normal >=60 [facility] Comment on above: Order Comment: Speci men Type: BLOOD SPECIMEN Ordering Facility: [facility] Address: [address] [place] [address] Result Comment: Krystle mated Glomerular Filtration Rate (eGFR) is calculated using the 2020 CKD-EPI creatinine equation. This equation utilizes serum creatinine, sex, and age as parameters. The creatinine assay has traceable calibration to isotope dilution-mass spectrometry. Refer to KDIGO guidelines for clinical interpretation. In patients with unstable renal function, e.g. those with acute kidney injury, the eGFR may not accurately reflect actual GFR. Performed By: #### 5 7021-8 #### [facility] [id number] [address] [place] [address] [place] HBV surface Ab Ql (S)on 12-26 HBV surface Ab Qn (S) [facility] HBV surface Ab Qn (S) <8.00 Normal [facility] Comment on above: Order Comment: Speci men Type: BLOOD SPECIMEN Ordering Facility: [facility] Address: [address] [place] [address] Result Comment: <8 m IU/mL: No serological evidence of immunity to Hepatitis B Virus. >/= 8 to <12 mIU/mL: No serological evidence of immunity to Hepatitis B Virus. >/= 12 mIU/mL: Consistent with serological evidence of immunity to Hepatitis B Virus. Performed By: #### 7 3752-8 #### [facility] CLIA [id number] [address] [place] [address] [place] HBV surface Ag Ser Qlon 12-26 HBV surface Ag Ql (S) Negative Normal Negative [facility] Comment on above: Order Comment: Speci men Type: BLOOD SPECIMEN Ordering Facility: [facility] Address: [address] [place] [address] Performed By: #### 1 989-3 #### [facility] CLIA [id number] [address] [place] [address] [place] HIV 1+2 Ab IA Qlon 3 HIV 1 and 2 Ab IA.rapid Nom [facility] HIV 1+2 Ab+HIV1 p24 Ag IA Ql Non-Reactive Normal Nonreactive [facility] Comment on above: Order Comment: Speci men Type: BLOOD SPECIMEN Ordering Facility: [facility] Address: [address] [place] [address] Performed By: #### 7 3752-8 #### [facility] CLIA [id number] [address] [place] [address] [place] HIV immunoassay testing algorithm interpretation (S/P/Bld) [Interp] [facility] HIV 1 and 2 Ab IA.rapid Nom Normal [facility] Comment on above: Order Comment: Speci men Type: BLOOD SPECIMEN Ordering Facility: [facility] Address: [address] [place] [address] Result Comment: Test not indicated. Performed By: #### 7 3752-8 #### [facility] CLIA [id number] [address] [place] [address] [place] HIV immunoassay testing algorithm interpretation (S/P/Bld) [Interp] Normal [facility] Comment on above: Order Comment: Speci men Type: BLOOD SPECIMEN Ordering Facility: [facility] Address: [address] [place] [address] Result Comment: No e vidence of HIV-1 or HIV-2 infection. Should recent infection be suspected, repeat testing may be considered 2-3 weeks after this draw. [place] Rev. Code 3701.243(E): This information has been disclosed to you from confidential records protected from disclosure by state law. ???You shall make no further disclosure of this information without the specific, written, and informed release of the individual to whom it pertains or as otherwise permitted by state law. A general authorization for the release of medical or other information is not sufficient for the purpose of the release of HIV test results or diagnoses. Performed By: #### 7 3752-8 #### [facility] CLIA [id number] [address] [place] [address] [place] Immunodeficiency panel FC (B ld)on 01-07-2023 CD3 cells (Bld) [#/Vol] 1367 cells/uL Normal 958-2388 [facility] Comment on above: Order Comment: Speci men Type: BLOOD SPECIMEN Ordering Facility: [facility] Address: [address] [address] Performed By: #### 7 3752-8 #### [facility] CLIA [id number] [address] [place] [address] [place] CD3 cells/100 cells (Bld) 67 % Normal 60-89 [facility] Comment on above: Order Comment: Speci men Type: BLOOD SPECIMEN Ordering Facility: [facility] Address: [address] [place] [address] Performed By: #### 7 3752-8 #### [facility] CLIA [id number] [address] [place] [address] [place] CD3+CD4+ (T4 helper) cells (Bld) [#/Vol] 611 cells/uL Normal 533-1674 [facility] Comment on above: Order Comment: Speci men Type: BLOOD SPECIMEN Ordering Facility: [facility] Address: [address] [place] [address] Performed By: #### 7 3752-8 #### [facility] CLIA [id number] [address] [place] [address] [place] CD3+CD4+ (T4 helper) cells/100 cells (Bld) 30 % Low 34-61 [facility] Comment on above: Order Comment: Speci men Type: BLOOD SPECIMEN Ordering Facility: [facility] Address: [address] Performed By: #### 7 3752-8 #### [facility] CLIA [id number] [address] [place] [address] [place] CD3+CD4+ (T4 helper) cells/CD3+CD8+ (T8 suppressor cells) cells (Bld) [# ratio] 0.88 % Low 1.10-3.25 [facility] Comment on above: Order Comment: Speci men Type: BLOOD SPECIMEN Ordering Facility: [facility] Address: [address] [place] [address] Performed By: #### 7 3752-8 #### [facility] CLIA [id number] [address] [place] [address] [place] CD3+CD8+ (T8 suppressor cells) cells (Bld) [#/Vol] 695 cells/uL Normal 175-958 [facility] Comment on above: Order Comment: Speci men Type: BLOOD SPECIMEN Ordering Facility: [facility] Address: [address] [place] [address] Performed By: #### 7 3752-8 #### [facility] CLIA [id number] [address] [place] [address] [place] CD3+CD8+ (T8 suppressor cells) cells/100 cells (Bld) 34 % Normal 10-41 [facility] Comment on above: Order Comment: Speci men Type: BLOOD SPECIMEN Ordering Facility: [facility] Address: [address] [place] [address] Performed By: #### 7 3752-8 #### [facility] CLIA [id number] [address] [place] [address] [place] CD3-CD16+CD56+ (Natural killer) cells (Bld) [#/Vol] 604 cells/uL High 102-565 [facility] Comment on above: Order Comment: Speci men Type: BLOOD SPECIMEN Ordering Facility: [facility] Address: [address] [place] [address] Performed By: #### 7 3752-8 #### [facility] CLIA [id number] [address] [place] [address] [place] CD3-CD16+CD56+ (Natural killer) cells/100 cells (Bld) 30 % High 5-25 [facility] Comment on above: Order Comment: Speci men Type: BLOOD SPECIMEN Ordering Facility: [facility] Address: [address] [place] [address] Performed By: #### 7 3752-8 #### [facility] CLIA [id number] [address] [place] [address] [place] CD3-CD19+ cells (Bld) [#/Vol] 0 cells/uL Low 75-660 [facility] Comment on above: Order Comment: Speci men Type: BLOOD SPECIMEN Ordering Facility: [facility] Address: [address] [place] [address] Performed By: #### 7 3752-8 #### [facility] CLIA [id number] [address] [place] [address] [place] CD3-CD19+ cells/100 cells (Bld) 0 % Low 5-22 [facility] Comment on above: Order Comment: Speci men Type: BLOOD SPECIMEN Ordering Facility: [facility] Address: [address] [place] [address] Performed By: #### 7 3752-8 #### [facility] CLIA [id number] [address] [place] [address] [place] Laboratory - Chemistry and C hemistry - challengeon 01-07-2023 25-hydroxyvitamin D3 [Mass/Vol] 47.3 ng/mL Normal 31.0-80.0 [facility] Comment on above: Order Comment: Speci men Type: BLOOD SPECIMEN Ordering Facility: [facility] Address: [address] [place] [address] Result Comment: Clas sification of 25 [place] Vitamin D status: Deficiency/Insufficiency: < or = 30 ng/ml. Sufficiency/Optimal Levels: 31-80 ng/mL Toxicity: > 100 ng/mL. Test performed by chemiluminescent immunoassay. Performed By: #### 1 989-3 #### [facility] CLIA [id number] [address] [place] [address] [place] IgM [Mass/Vol] 73 mg/dL Normal 23-259 [facility] Comment on above: Order Comment: Speci men Type: BLOOD SPECIMEN Ordering Facility: [facility] Address: [address] [address] Performed By: #### 7 3752-8 #### [facility] CLIA [id number] [address] [place] [address] [place] IgG [Mass/Vol] 1309 mg/dL Normal 549-1584 [facility] Comment on above: Order Comment: Speci men Type: BLOOD SPECIMEN Ordering Facility: [facility] Address: [address] [place] [address] Performed By: #### 7 3752-8 #### [facility] CLIA [id number] [address] [place] [address] [place] Laboratory - Microbiology an d Antimicrobial susceptibilityon 01-07-2023 HBV core Ab Ql (S) Negative Normal Negative [facility] Comment on above: Order Comment: Speci men Type: BLOOD SPECIMEN Ordering Facility: [facility] Address: [address] [place] [address] Result Comment: No e vidence of current or past infection with Hepatitis B virus. Should recent infection be suspected, repeat testing may be considered 3-4 weeks after this draw. Performed By: #### 7 3752-8 #### [facility] CLIA [id number] [address] [place] [address] [place] HBV surface Ab Ql (S) Negative Normal [facility] Comment on above: Order Comment: Speci men Type: BLOOD SPECIMEN Ordering Facility: [facility] Address: [address] [place] [address] Result Comment: No s erological evidence of immunity to Hepatitis B Virus. Performed By: #### 7 3752-8 #### [facility] CLIA [id number] [address] [place] [address] [place] Reagin and Treponema pallidum IgG and IgM [Interp] Cannot exclude recent Treponemal infection if specimen collected within 7-10 days after appearance of suspect lesions or 2-3 weeks after an exposure. Clinical correlation is required. Normal [facility] Comment on above: [facility] Ordering Facility: [facility] Address: [address] [place] [address] Performed By: #### 7 3752-8 #### [facility] CLIA [id number] [address] [place] [address] [place] HCV Ab Ql (S) Negative Normal Negative [facility] Comment on above: Order Comment: [facility] Type: BLOOD SPECIMEN Ordering Facility: [facility] Address: [address] [place] [address] Result Comment: The result suggests no evidence of active infection with Hepatitis C virus. Should recent infection be suspected, repeat testing may be considered 4-6 weeks after this draw. Performed By: #### 5 7021-8 #### [facility] CLIA [id number] [address] [place] [address] [place] NMDA RECEPTOR ANTIBODY, IGGo n 01-07-2023 NMDA RECEPTOR AB, IGG 1:20 High <1:10 [facility] Comment on above: Order Comment: Speci men Type: BLOOD SPECIMEN Ordering Facility: [facility] Address: [address] [place] [address] Result Comment: Antibodies to NMDA were detected; titer was performed at an additional charge. The ExTINGUISH Trial (safety and efficacy of Inebilizumab in anti-NMDA receptor encephalitis, [id number]) is actively recruiting patients. To learn more, or to refer your patient, call , email [email or web address], or visit [email or web address]. INTERPRETIVE INFORMATION: NMDA Receptor Ab IgG CBA-IFA, Serum NMDA receptor antibody is found in a subset of patients with autoimmune limbic encephalitis and may occur with or without associated tumor. Decreasing antibody levels may be associated with therapeutic response. In addition, positive results have been reported in patients with non-autoimmune phenotypes. A negative test result does not rule out a diagnosis of autoimmune limbic encephalitis. Results should be interpreted in correlation with the patient's clinical history and other laboratory findings. Serum testing should be paired with CSF testing for improved diagnostic sensitivity. This indirect fluorescent antibody assay utilizes full-length GluN1 transfected cell lines for the detection and semiquantification of NMDA receptor IgG antibody. This test was developed and its performance characteristics determined by [facility]. It has not been cleared or approved by the [place] Food and Drug Administration. This test was performed in a CLIA certified laboratory and is intended for clinical purposes. Performed By: [facility] [address] [place] [address] Cinnamon Grinder: Sabas Ortiz MD, PhD CLIA Number: [id number] Performed By: #### 7 3752-8 #### [facility] CLIA [id number] [address] [place], [place] [address] [place] [address] [place] NMDA RECEPTOR ANTIBODY, IGG TITERon 01-07-2023 NMDA RECEPTOR AB, IGG BILL ONLY Billed Normal [facility] Comment on above: Order Comment: Specmartín sandra Type: BLOOD SPECIMEN Ordering Facility: [facility] Address: [address] [place] [address] Result Comment: Perf ormed By: [address] [address] Cinnamon Grinder: Sabas Ortiz MD, PhD CLIA Number: [id number] Performed By: #### 7 3752-8 #### [facility] CLIA [id number] [address] [place] [address] [place] NMDA-RECEPTOR AB IFA TITERon 01-07-2023 NMDA-R AB IF TITER ASSAY, S <1:240 Normal <1:240 [facility] Comment on above: Order Comment: Speci men Type: BLOOD SPECIMEN Ordering Facility: [facility] Address: [address] [place] [address] Result Comment: ADDITIONAL INFORMATION This test was developed and its performance characteristics determined by [facility] in a manner consistent with CLIA requirements. This test has not been cleared or approved by the U.S. Food and Drug Administration. Test Performed by: [facility] [place] [address] Oncology Nurse Navigator: Tk Williamson M.D. Ph.D.; CLIA# [id number] Performed By: #### 7 3752-8 #### [facility] CLIA [id number] [address] [place] [address] [place] Reagin and Treponema pallidu m IgG and IgM [Interp]on 01-07-2023 T. pallidum IgG+IgM IA Ql (S) Non-Reactive Normal Nonreactive [facility] Comment on above: Order Comment: Speci men Type: BLOOD SPECIMEN Ordering Facility: [facility] Address: [address] [id number] Performed By: #### 7 3752-8 #### [facility] CLIA [id number] [address] [place] [address] [place] CNPNon 12-23-2022 CNPN Telephone (PSYCMN) JACOBSARA Oliver ([id number]) [address] [facility] Date Time Provider Department 12/23/22 KEREN VAZ PSYCMN During your visit today, we recorded the following information about you: Yosef Gomez LPN 12/23/2022 1:48 PM Signed Received request from [employer] that the following medication requires PA: OLANZapine orally disintegrating (ZYPREXA ZYDIS) 5 mg disintegrating tablet Sig: Take 1 tablet by mouth as needed. Completed forms through [employer] ([place]: [id number]) [id number] Will have to add OV note when on site tomorrow. MARIZA Vann Nicole, LPN 12/24/2022 8:28 AM Signed OV note attached and submitted to plan. We will await their response. LEONARD Vann Nicole, LPN 01/07/2023 9:22 AM Signed I called Allison Villatororexa Humbleydis approved from 12/24/22-12/23/23 MARLENY # [id number] Pharmacy notified. Yosef Gomez LPN Allergies As of Date: 12/23/2022 Noted Allergy Reaction BEES 01/08/2010 10 - Anaphylaxis Date Reviewed: 11/28/2022 Reviewed by: Shyanne Tucker MA - Fully Assessed Reason for Visit: Insurance Authorization [[id number]] Prescriptions as of 01/07/2023 - topiramate XR (QUDEXY XR) 200 mg cap(s) Take 4 capsules by mouth daily at bedtime. daily dose is 850mg - topiramate XR (QUDEXY XR) 50 mg cap(s) Take 1 capsule by mouth once daily. - Cholecalciferol, Vitamin D3, (VITAMIN D) 25 mcg (1,000 unit) cap Take 2 capsules by mouth once daily. - divalproex DR (DEPAKOTE) 500 mg EC tablet Take 2 tablets by mouth twice daily. - diazePAM (VALTOCO) 20 mg/2 spray (10mg/0.1mL x2) nasal spray Use 2 Sprays in the nose as needed (For seziures longer than 3 minutes or 3 seizures in 30 minutes.). - THERAPEUTIC-M 9 mg iron-400 mcg tablet Take 1 tablet by mouth once daily. - OLANZapine orally disintegrating (ZYPREXA ZYDIS) 5 mg disintegrating tablet Take 1 tablet by mouth as needed. - OXcarbazepine ER (OXTELLAR XR) 300 mg tablet Take 6 tablets by mouth daily at bedtime. - therapeutic multivitamin (THERA VITAMIN) tablet Take 1 tablet by mouth once daily. - ibuprofen (MOTRIN) 200 mg tablet Take 2 tablets by mouth every 6 hours as needed for Pain or Fever. - docusate sodium (COLACE) 100 mg capsule Take 1 capsule by mouth twice daily. Facility-Administered Medications as of 01/07/2023 - riTUXimab-arrx 1,000 mg in NaCl 0.9% 1,000 mL (RIABNI) 1 mg/mL infusion - EPINEPHrine 1 mg/mL (1 mL) 0.5 mg injection - NaCl 0.9% 1,000 mL iv bolus - hydrocortisone sodium succinate (PF) 144.5 mg injection (Solu-CORTEF) - diphenhydrAMINE 50 mg injection (BENADRYL) - famotidine 36.15 mg injection (PEPCID) - NaCl 0.9% iv infusion - sodium chloride 0.9 % (flush) 2-10 mL (BD POSIFLUSH) Problem List As Of Date 12/23/2022 Noted Resolved FEEDING PROBLEM [R63.30] 12/11/2005 03/12/2007 CONSTIPATION NOS [K59.00] 03/26/2006 03/12/2007 GASTROSTOMY COMPLICATION NOS [K94.20] 03/26/2006 03/12/2007 ESOPHAGEAL REFLUX [K21.9] 05/07/2006 03/12/2007 Abdominal pain [R10.9] 07/16/2011 02/08/2018 Movement disorder [G25.9] 09/29/2012 06/01/2018 Intermittent explosive disorder [F63.81] 09/25/2014 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*08/28/2015 Intractable epilepsy (HCC) [G40.919] 11/26/2016 06/01/2018 Lxva-L-tqryal-D-aspar anderson (NMDA) receptor encep*10/27/2005 09/20/2021 Vitamin D deficiency [E55.9] 06/01/2018 Urinary incontinence [R32] 06/01/2018 Syncope [R55] 06/01/2018 Low blood pressure [I95.9] 06/01/2018 Dmfh-P-yciuaj-D-aspar anderson (NMDA) receptor encep* Developmental delay [R62.50] 01/09/2020 Behavior problem in pediatric patient [R46.89] 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 S/P brain surgery [Z98.890] 02/12/2018 06/01/2018 Epilepsy (HCC) [G40.909] 01/13/2018 S/P craniotomy [Z98.890] 05/26/2018 Cerebral edema (HCC) [G93.6] 05/31/2018 09/20/2021 Physical deconditioning [R53.81] 06/02/2018 09/20/2021 Seizure-like activity (HCC) [R56.9] 02/04/2020 Acne [L70.9] 02/04/2020 ADHD (attention deficit hyperactivity disorder)*02/08/2021 Adjustment disorder with mixed anxiety and depr*02/08/2021 History of encephalitis [Z86.61] 11/01/2021 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 Malnutrition of moderate degree (HCC) [E44.0] 12/18/2021 Encounter Status:Closed by YOSEF GOMEZ on 01/07/23 [facility] [place] 12-09-2022 CNPN Telephone (NE50MN) SARA PICHARDO ([id number]) 03 [facility] Date Time Provider Department 12/09/22 KENTRELL ABDULLAHI NE50MN During your visit today, we recorded the following information about you: Aby Carvajal 12/09/2022 9:16 AM Addendum Form received: From (agency / facility / parent): [employer] person (if given): aPulina Garcia Phone #: [phone] (home) [phone] school office Fax # : [phone] Email: Please call mom for email address. Information requested: SAP Patient of Funmilayo Casas RN 12/11/2022 1:19 PM Signed SAP completed and forwarded to Dr. Haider for signature via DocuSign. Funmilayo Chambers RN, RN 12/11/2022 4:37 PM Signed Signature completed by Dr. Haider and form forwarded to requested fax number via DocuSign. Funmilayo Lutz Elizabeth 12/12/2022 11:12 AM Signed School Fax # for forms: [phone] Funmilayo Silva RN 12/12/2022 5:00 PM Signed Forms resent to requested fax number. Funmilayo Silva RN Allergies As of Date: 12/09/2022 Noted Allergy Reaction BEES 01/08/2010 10 - Anaphylaxis Date Reviewed: 11/28/2022 Reviewed by: Shyanne Tucker MA - Fully Assessed Reason for Visit: Forms [873] Cmt: sap Prescriptions as of 12/12/2022 - topiramate XR (QUDEXY XR) 200 mg cap(s) Take 4 capsules by mouth daily at bedtime. daily dose is 850mg - topiramate XR (QUDEXY XR) 50 mg cap(s) Take 1 capsule by mouth once daily. - Cholecalciferol, Vitamin D3, (VITAMIN D) 25 mcg (1,000 unit) cap Take 2 capsules by mouth once daily. - divalproex DR (DEPAKOTE) 500 mg EC tablet Take 2 tablets by mouth twice daily. - diazePAM (VALTOCO) 20 mg/2 spray (10mg/0.1mL x2) nasal spray Use 2 Sprays in the nose as needed (For seziures longer than 3 minutes or 3 seizures in 30 minutes.). - THERAPEUTIC-M 9 mg iron-400 mcg tablet Take 1 tablet by mouth once daily. - OLANZapine orally disintegrating (ZYPREXA ZYDIS) 5 mg disintegrating tablet Take 1 tablet by mouth as needed. - OXcarbazepine ER (OXTELLAR XR) 300 mg tablet Take 6 tablets by mouth daily at bedtime. - therapeutic multivitamin (THERA VITAMIN) tablet Take 1 tablet by mouth once daily. - ibuprofen (MOTRIN) 200 mg tablet Take 2 tablets by mouth every 6 hours as needed for Pain or Fever. - docusate sodium (COLACE) 100 mg capsule Take 1 capsule by mouth twice daily. 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*08/28/2015 Intractable epilepsy (HCC) [G40.919] 11/26/2016 06/01/2018 Zedd-O-agmnms-D-aspar anderson (NMDA) receptor encep*10/27/2005 09/20/2021 Vitamin D deficiency [E55.9] 06/01/2018 Urinary incontinence [R32] 06/01/2018 Syncope [R55] 06/01/2018 Low blood pressure [I95.9] 06/01/2018 Bfha-L-itbkpz-D-aspar anderson (NMDA) receptor encep* Developmental delay [R62.50] 01/09/2020 Behavior problem in pediatric patient [R46.89] 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 S/P brain surgery [Z98.890] 02/12/2018 06/01/2018 Epilepsy (HCC) [G40.909] 01/13/2018 S/P craniotomy [Z98.890] 05/26/2018 Cerebral edema (HCC) [G93.6] 05/31/2018 09/20/2021 Physical deconditioning [R53.81] 06/02/2018 09/20/2021 Seizure-like activity (HCC) [R56.9] 02/04/2020 Acne [L70.9] 02/04/2020 ADHD (attention deficit hyperactivity disorder)*02/08/2021 Adjustment disorder with mixed anxiety and depr*02/08/2021 History of encephalitis [Z86.61] 11/01/2021 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 Malnutrition of moderate degree (HCC) [E44.0] 12/18/2021 Encounter Status:Closed by FUNMILAYO SILVA RN on 12/11/22 [facility] CNOVon 11-28-2022 CNOV Office Visit (CHPDMN ) JACOBSARA Oliver ([id number]) 03 [facility] Date Time Provider Department 11/28/22 9:30 AM JAMES PLASCENCIA [facility] During your visit today, we recorded the following information about you: Temperature Pulse Respiration Blood pressure 97.4 degrees 74/minute 20/minute 128/56 Weight Height 74.1 kg 1.74 m James Plascencia MD 11/28/2022 11:36 PM Signed PATIENT NAME: Sara Pichardo CC NO.: [id number] DATE OF : 2005 DATE OF SERVICE: November 28, 2022 Sara is a 17 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 He is referred by Dr. Michael Roper for evaluation. My recommendations will be communicated via the shared medical record or US mail. He is accompanied by his father and his sister. History provided by his father and his medical record. History: According to his detailed medical record from Dr. 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 Developed prominent cognitive delays and behavioral problems. 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 He was initially evalauted by Dr. Anna Joyce at that time. Per her report, Sara was a previously healthy child with normal neurologic development until 09/20/05. Around that time, he developed spasms of the left thigh with associated left hip pain and frequent falls. On 10/18/05 he developed paroxysmal events concerning for seizures -- described as 15 minute episodes of upward eye-roll, increased ross-motor secretions, generalized tonic movements and dystonic posturing of the right hand, with post-ictal sleepiness for several days. On he had a 60-90 minute episode of unresponsiveness and GTC seizure. He was intubated, loaded with Fosphenytoin, and initiated on fosphenytoin and VPA maintenance. Reportedly he had a low grade fever of 100.4 at that time. Subsequently he developed abnormal movements described as writhing choreiform and hyperkinetic movements in all extremities while awake, increased with agitation and disappearing with sleep. He also devleoped encephalopathy and behavior dysregulation. MRI Brain on 10/2005 showed increased T2 signal in the mesial L frontotemporal region, anterior L insular cortex, and anterior/inferior frontal lobe pepe matter bilaterally. He was monitored on EEG, with choreform movements as described above captured on EEG, with no clear epileptiform discharges on EEG. Although notably, these movements were more consistent with dyskinesia than seizure activity. His background EEG revealed diffuse continuous slowing consistent with moderate encephalopathy. During his hospitalization he was easily agitated, requiring PRN ativan. A description of his movements were recounted by pediatric neurologist Dr. 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 Orolingual dyskinesia much better. EEG performed 10/2006 eventually captured seizures, with interictal showing multiregional left and right frontal, left and right temporal sharp waves. He had a protracted and difficult recovery but managed to recover well on VPA monotherapy, with ~ 1-2 seizures per year since 2006. He was evaluated again by Dr. Joyce in 2012, with reports of increased axial spasms described as axial tonic, head drop and stiffening of the extremities ocurring in clusters. He was started on guanfacine in 2012 with improvement in behavioral agitation. He continued to struggle with cognitive development, requiring an IEP with a 1:1 aid at school and requiring speech, occupational and physical therapy. EEG in 2012 was normal. In August 2015 he was admitted to PMU for nocturnal spells - awakens, cries out, jerking of right hand and foot, occasional full body turn, with frequent enuresis. He reported nightmares of zombies telling him to eat mommy's brain . These were captured during admission and consiste (more content not included)... Normal [facility] ECG COMPLETEon 11-28-2022 Atrial Rate 53 BPM [facility] Calculated P Mora 57 degrees [facility] Calculated R Mora 85 degrees [facility] Calculated T Mora 68 degrees [facility] P-R Interval 128 ms [facility] QRS Duration 92 ms [facility] QT Interval 410 ms [facility] QTC Calculation (Bazett) 384 ms [facility] Ventricular Rate 53 BPM [facility] ECG COMPLETE Ventricular Rate : 5 3 BPM Atrial Rate : 53 BPM P-R Interval : 128 ms QRS Duration : 92 ms Q-T Interval : 410 ms QTC Calculation(Bazett) : 384 ms Calculated P Mora : 57 degrees Calculated R Mora : 85 degrees Calculated T Mora : 68 degrees SINUS BRADYCARDIA OTHERWISE NORMAL ECG Confirmed by TEMO ADAN, JAMES ([id number]) on 11/28/2022 4:12:46 PM NAME : SARA PICHARDO PID : [id number] : 2005 Gender : Male Race : Other ORD : [id number] Procedure Date : Nov 28 2022 07:08:26 Edit Date : Nov 28 2022 16:12:48 Diagnosis: SINUS BRADYCARDIA OTHERWISE NORMAL ECG Confirmed by JAMES PLASCENCIA MD ([id number]) on 11/28/2022 4:12:46 PM Test Reason : EKG Location : 570 : R2PNS Overread By : JAMES PLASCENCIA MD Edited By : JAMES PLASCENCIA MD Referred By : KASSANDRA PLASCENCIA Acquired by : Sheyla BAUER [facility] ECHO PED W/O CONTRASTon 08-0 [facility] PEDIATRIC ECHOon 11-28-2022 PEDIATRIC ECHO + - -+-+ Pediatric Cardiology Echocardiogram Report + -+-+ NAME: MR. SARA PICHARDO : 2005 Ht: 174.00 cm Age: 17 years Wt: 74.10 kg Study Date: 11/28/2022 9:22:26 AM Gender: M BSA: 1.89 m2 Requested By: James Plascencia BP: 128/56 MD mmHg Diagnosing Physician: Jazmin Haddad MD Study Location: [facility] OP Indications: Evaluate cardiac anatomy, size, and function. History: History of encephalitis. Abnormal EKG. Diagnosis:R94.31 Abnormal Electrocardiogram Procedure Code: 71219 Transthoracic, complete (w/Doppler and color) Image Quality: This was a technically difficult study. Imaging Limitations: Poor Acoustic Windows. Views Not Done: RSB not well visualized due to poor imaging windows. INTERPRETATION SUMMARY 1. Normal segmental cardiac anatomy. 2. No obvious intracardiac shunts 3. Normal origin of left main coronary artery with antegrade flow by colour Doppler; right coronary artery appears normal by 2D, not well visualized by colour Doppler 4. Physiologic tricuspid regurgitation; estimated RVSP 20 mmHg + RAp 5. Qualitatively normal right ventricular size and systolic function 6. Normal left ventricular size, wall thickness, and systolic function. 7. Unobstructed left-sided aortic arch with normal branching and normal Doppler pattern 8. No pericardial effusion. POSITION/CONNECTION: Situs: Abdominal visceral situs solitus. Levocardia. Atrial situs solitus. D looping of the ventricles. Normally related great arteries. VEINS: Systemic Veins: Normal systemic venous return. The right superior vena cava drains normally to the right atrium and is of normal caliber. The inferior vena cava is of normal caliber and right-sided, entering the atrium. Pulmonary Veins: The pulmonary veins were not well seen. ATRIA/SEPTUM: Atria: The left atrium is normal size. The right atrium is normal in size. No hemodynamically significant atrial septal defect. AV VALVES/CANAL: Mitral Valve: The mitral valve leaflets are normal in appearance. There is no mitral valve prolapse. There is no evidence of mitral stenosis. No mitral regurgitation is present. Tricuspid Valve: The tricuspid valve is normal in appearance. Trivial tricuspid regurgitation is present. VENTRICLES: Left Ventricle: The left ventricle is normal in size. There is normal wall thickness. Left ventricular systolic function is normal. Right Ventricle: The right ventricular chamber is of normal size. The right ventricular function appears qualitatively normal. There is normal septal wall motion. Right ventricular diastolic Doppler filling patterns are normal. VSD: There is an intact ventricular septum. OUTFLOW TRACTS: LVOT: There is no left ventricular outflow tract obstruction. Aortic Valve: The aortic valve is normal. There is no aortic stenosis. Aortic valve velocity is 1.33 m/s. Aortic valve mean gradient is 2.9 mmHg. No aortic regurgitation is present. Aortic valve leaflet morphology not well visualized. RVOT: There is no right ventricular outflow tract obstruction. Pulmonic Valve: The pulmonary valve is normal in appearance. There is no pulmonary valve stenosis. GREAT ARTERIES: Aorta: There is a left aortic arch. The aorta is not well seen. The aortic root appears normal in size. No evidence of coarctation of the aorta. The descending aortic Doppler pattern is nonobstructive. Pulmonary Arteries: The main, right and left pulmonary arteries appear normal. The right pulmonary artery is of normal size and origin. OTHER: Coronary Arteries: RCA seen by 2D only. Left coronary ostium seen by 2D and color. Pericardium: There is no pericardial effusion. Interventional / Surgical Procedures: This patient has had no prior surgery. MEASUREMENTS: Mitral Valve MV Mean Grad: 0.6 mmHg Ventricle IVS d, Mmode: 0.73 cm Zscore: -1.70 LV d, Mmode: 4.91 cm Zscore: -0.57 LV s, Mmode: 3.25 cm Zscore: -0.18 LVPW d, Mmode: 0.71 cm Zscore: -1.76 LV FS Mmode: 33.8 % LV vol d, MOD A4C: 127.6 ml LV vol s, MOD A4C: 54.3 ml LV Vol Index d, A4C: 67.66 ml/m LV Stroke Vol: 38.9 ml/m LV EF (A4C): 57.5 % LV Mass M-Mode 115.1 g LV Mass M-mode index (BSA) 61.0 g/m LV Mass M-mode index g/(m^2.7) LV EF A/L A4C 58.9 % Pulmonary Valve PV Peak Velocity: 1.32 m/s PV Peak Grad: 7.0 mmHg PV Mean Velocity: 0.882 m/s PV Mean Grad: 3.6 mmHg PV VTI: 0.286 m PV Ejection Time: 324 msec Tricuspid Valve TR Vmax: 2.27 m/s TR Peak Grad: 20.6 mmHg Aorta Ao Root s, 2D: 2.78 cm Z score: -0.21 Ao Annulus: 2.12 cm Z score: -0.20 Aortic valve Ao V Vmax: 1.33 m/s Ao V Peak Grad: 7.0 mmHg Ao V Mean Velocity: 0.747 m/s Ao V Mean Grad: 2.9 mmHg Ao V VTI: 0.246 m Ao V Ejection Time: 329 msec Performed by Fernanda Kramer. Electronically signed by Jazmin Haddad MD, 11/28/2022 12:43:20 PM. Final CC Syng (more content not included)... Normal [facility] CBC W Auto Differential pane l (Bld)on 11-07-2022 Basophils (Bld) [#/Vol] <0.11 k/uL [facility] Basophils/100 WBC (Bld) 0.4 % [facility] Differential cell count method Nom (Bld) Auto [facility] Eosinophils (Bld) [#/Vol] 0.05 10*3/uL <0.46 k/uL [facility] Eosinophils/100 WBC (Bld) 1.1 % [facility] Erythrocyte distribution width (RBC) [Ratio] 12.9 % 11.5 - 15.0 % [facility] Hematocrit (Bld) [Volume fraction] 46.5 % 39.0 - 51.0 % [facility] Hemoglobin (Bld) [Mass/Vol] 16.0 g/dL 13.0 - 17.0 g/dL [facility] Immature granulocytes (Bld) [#/Vol] 0.03 10*3/uL <0.10 k/uL [facility] Immature granulocytes/100 WBC (Bld) 0.7 % [facility] Lymphocytes (Bld) [#/Vol] 1.76 10*3/uL 1.00 - 4.00 k/uL [facility] Lymphocytes/100 WBC (Bld) 38.8 % [facility] MCH (RBC) [Entitic mass] 31.3 pg 26.0 - 34.0 pg [facility] MCHC (RBC) [Mass/Vol] 34.4 g/dL 30.5 - 36.0 g/dL [facility] MCV (RBC) [Entitic vol] 91.0 fL 80.0 - 100.0 fL [facility] Monocytes (Bld) [#/Vol] 0.39 10*3/uL <0.87 k/uL [facility] Monocytes/100 WBC (Bld) 8.6 % [facility] Neutrophils (Bld) [#/Vol] 2.29 10*3/uL 1.45 - 7.50 k/uL [facility] Neutrophils/100 WBC (Bld) 50.4 % [facility] Nucleated RBC (Bld) [#/Vol] <0.01 k/uL [facility] Nucleated RBC/100 WBC (Bld) [Ratio] 0.0 /100 WBC [facility] Platelet mean volume (Bld) [Entitic vol] 11.1 fL 9.0 - 12.7 fL [facility] Platelets (Bld) [#/Vol] 124 10*3/uL Low 150 - 400 k/uL [facility] RBC (Bld) [#/Vol] 5.11 10*6/uL 4.20 - 6.0 0 m/uL [facility] WBC (Bld) [#/Vol] 4.54 10*3/uL 3.70 - 11. 00 k/uL [facility] TOPIRAMATE BLDon 11-07-2022 Topiramate [Mass/Vol] 18.2 ug/mL 5.0 - 20.0 ug/mL [facility] VALPROIC A/DEPAKENEon 2022 Valproate [Mass/Vol] 65.3 ug/mL 50.0 - 100.0 ug/mL [facility] MRI LUMBAR SPINE WO IVCONon 07-14-2022 [facility] CBC W Auto Differential pane l (Bld)on 07-10-2022 Basophils (Bld) [#/Vol] 0.03 10*3/uL <0.11 k/uL [facility] Basophils/100 WBC (Bld) 0.6 % [facility] Differential cell count method Nom (Bld) Auto [facility] Eosinophils (Bld) [#/Vol] 0.11 10*3/uL <0.46 k/uL [facility] Eosinophils/100 WBC (Bld) 2.2 % [facility] Erythrocyte distribution width (RBC) [Ratio] 12.8 % 11.5 - 15.0 % [facility] Hematocrit (Bld) [Volume fraction] 46.2 % 39.0 - 51.0 % [facility] Hemoglobin (Bld) [Mass/Vol] 15.5 g/dL 13.0 - 17.0 g/dL [facility] Immature granulocytes (Bld) [#/Vol] <0.10 k/uL [facility] Immature granulocytes/100 WBC (Bld) 0.4 % [facility] Lymphocytes (Bld) [#/Vol] 1.74 10*3/uL 1.00 - 4.00 k/uL [facility] Lymphocytes/100 WBC (Bld) 35.0 % [facility] MCH (RBC) [Entitic mass] 30.9 pg 26.0 - 34.0 pg [facility] MCHC (RBC) [Mass/Vol] 33.5 g/dL 30.5 - 36.0 g/dL [facility] MCV (RBC) [Entitic vol] 92.0 fL 80.0 - 100.0 fL [facility] Monocytes (Bld) [#/Vol] 0.46 10*3/uL <0.87 k/uL [facility] Monocytes/100 WBC (Bld) 9.3 % [facility] Neutrophils (Bld) [#/Vol] 2.61 10*3/uL 1.45 - 7.50 k/uL [facility] Neutrophils/100 WBC (Bld) 52.5 % [facility] Nucleated RBC (Bld) [#/Vol] <0.01 k/uL [facility] Nucleated RBC/100 WBC (Bld) [Ratio] 0.0 /100 WBC [facility] Platelet mean volume (Bld) [Entitic vol] 10.6 fL 9.0 - 12.7 fL [facility] Platelets (Bld) [#/Vol] 134 10*3/uL Low 150 - 400 k/uL [facility] RBC (Bld) [#/Vol] 5.02 10*6/uL 4.20 - 6.0 0 m/uL [facility] WBC (Bld) [#/Vol] 4.97 10*3/uL 3.70 - 11. 00 k/uL [facility] Comprehensive metabolic 2000 panelon 07-10-2022 Albumin [Mass/Vol] 4.1 g/dL 3.9 - 4.9 g/dL [facility] ALP [Catalytic activity/Vol] 96 U/L 55 - 149 U/L [facility] ALT [Catalytic activity/Vol] 28 U/L 10 - 54 U/L [facility] Anion gap [Moles/Vol] 11 mmol/L 9 - 18 mmol/L [facility] AST [Catalytic activity/Vol] 29 U/L 14 - 40 U/L [facility] Bilirubin [Mass/Vol] 0.2 mg/dL 0.2 - 1.3 mg/dL [facility] Calcium [Mass/Vol] 9.0 mg/dL 8.5 - 10. 2 mg/dL [facility] Chloride [Moles/Vol] 113 mmol/L High 97 - 105 mmol/L [facility] CO2 [Moles/Vol] 19 mmol/L Low 22 - 30 mmol/L [facility] Creatinine [Mass/Vol] 0.79 mg/dL 0.73 - 1.22 mg/dL [facility] Estimated Glomerular Filtration Rate 132 mL/min/1.73m >=60 mL/min/1.73m [facility] Glucose [Mass/Vol] 92 mg/dL 74 - 99 mg/dL [facility] Potassium [Moles/Vol] 4.3 mmol/L 3.7 - 5.1 mmol/L [facility] Protein [Mass/Vol] 7.0 g/dL 6.3 - 8.0 g/dL [facility] Sodium [Moles/Vol] 143 mmol/L 136 - 144 mmol/L [facility] Urea nitrogen [Mass/Vol] 12 mg/dL 9 - 24 mg/dL [facility] HBV surface Ab Ql (S)on 06-25 HBV surface Ab Qn (S) Low >=12.00 mIU/mL [facility] HEP B CORE AB TOTALon 2022 HBV core Ab Ql (S) Negative Negative [facility] HEP B SURF ABon 07-10-2022 HBV surface Ab Ql (S) Negative Abnormal Positive [facility] HEP B SURF AG SCRNon 023 HBV surface Ag Ql (S) Negative Negative [facility] HEP C AB IA W/CONF [facility] HCV Ab Ql (S) Negative Negative [facility] HIV 1+2 Ab IA Qlon HIV 1 and 2 Ab IA.rapid Nom [facility] HIV 1+2 Ab+HIV1 p24 Ag IA Ql Non-Reactive Nonreactive [facility] HIV Interpretation [facility] IGGon 07-10-2022 IgG [Mass/Vol] 1286 mg/dL 549 - 1,584 mg/dL [facility] IGMon 07-10-2022 IgM [Mass/Vol] 78 mg/dL 23 - 259 mg/dL [facility] Treponema pallidu m IgG and IgM [Interp]on 07-10-2022 Syphilis Interpretation Cannot exclude recent Treponemal infection if specimen collected within 7-10 days after appearance of suspect lesions or 2-3 weeks after an exposure. Clinical correlation is required. [facility] T. pallidum IgG+IgM IA Ql (S) Non-Reactive Nonreactive [facility] VITAMIN D 25 HYDROXYon 07-10 25-hydroxyvitamin D3 [Mass/Vol] 57.1 ng/mL 31.0 - 80.0 ng/mL [facility] CBC W Auto Differential pane l (Bld)on 05-16-2022 Basophils (Bld) [#/Vol] <0.11 k/uL [facility] Basophils/100 WBC (Bld) 0.1 % [facility] Differential cell count method Nom (Bld) Auto [facility] Eosinophils (Bld) [#/Vol] 0.07 10*3/uL <0.46 k/uL [facility] Eosinophils/100 WBC (Bld) 1.0 % [facility] Erythrocyte distribution width (RBC) [Ratio] 13.5 % 11.5 - 15.0 % [facility] Hematocrit (Bld) [Volume fraction] 46.4 % 39.0 - 51.0 % [facility] Hemoglobin (Bld) [Mass/Vol] 15.2 g/dL 13.0 - 17.0 g/dL [facility] Immature granulocytes (Bld) [#/Vol] 0.03 10*3/uL <0.10 k/uL [facility] Immature granulocytes/100 WBC (Bld) 0.4 % [facility] Lymphocytes (Bld) [#/Vol] 1.48 10*3/uL 1.00 - 4.00 k/uL [facility] Lymphocytes/100 WBC (Bld) 21.7 % [facility] MCH (RBC) [Entitic mass] 30.8 pg 26.0 - 34.0 pg [facility] MCHC (RBC) [Mass/Vol] 32.8 g/dL 30.5 - 36.0 g/dL [facility] MCV (RBC) [Entitic vol] 93.9 fL 80.0 - 100.0 fL [facility] Monocytes (Bld) [#/Vol] 0.80 10*3/uL <0.87 k/uL [facility] Monocytes/100 WBC (Bld) 11.7 % [facility] Neutrophils (Bld) [#/Vol] 4.43 10*3/uL 1.45 - 7.50 k/uL [facility] Neutrophils/100 WBC (Bld) 65.1 % [facility] Nucleated RBC (Bld) [#/Vol] <0.01 k/uL [facility] Nucleated RBC/100 WBC (Bld) [Ratio] 0.0 /100 WBC [facility] Platelet mean volume (Bld) [Entitic vol] 10.8 fL 9.0 - 12.7 fL [facility] Platelets (Bld) [#/Vol] 144 10*3/uL Low 150 - 400 k/uL [facility] RBC (Bld) [#/Vol] 4.94 10*6/uL 4.20 - 6.0 0 m/uL [facility] WBC (Bld) [#/Vol] 6.82 10*3/uL 3.70 - 11. 00 k/uL [facility] ESR Westergren method (Bld) [Velocity]on 05-16-2022 ESR (Bld) [Velocity] 2 mm/h 0 - 15 mm/hr [facility] XR FEMUR GENERAL 2V AP/LAT L EFTon 05-16-2022 [facility] Vital Signs Date Time Vital Sign Value Performing Clinician Faci lity 11-06-2023 11:03-0400 Body height 174 cm Michael Roper MD Work Phone: [facility] 11-06-2023 11:03-0400 Body mass index (BMI) [Ratio] 28.37 kg/m2 Michael Roper MD Work Phone: [facility] 11-06-2023 11:03-0400 Body temperature 98.6 [degF] Michael Roper MD Work Phone: [facility] 11-06-2023 11:03-0400 Body weight 85.9 kg Michael Roper MD Work Phone: [facility] 11-06-2023 11:03-0400 Diastolic blood pressure 63 mm[Hg] Michael Roper MD Work Phone: [facility] 11-06-2023 11:03-0400 Heart rate 75 /min Michael Roper MD Work Phone: [facility] 11-06-2023 11:03-0400 Respiratory rate 18 /min Michael Roper MD Work Phone: [facility] 11-06-2023 11:03-0400 SaO2% (BldA) [Mass fraction] 97 % Michael Roper MD Work Phone: [facility] 11-06-2023 11:03-0400 Systolic blood pressure 136 mm[Hg] Michael Roper MD Work Phone: [facility] 08-12-2023 14:37-0400 Body temperature 98.29 [degF] [facility] 08-12-2023 14:37-0400 Diastolic blood pressure 50 mm[Hg] Peds 18 [facility] 08-12-2023 14:37-0400 Heart rate 69 /min Peds 18 [facility] 08-12-2023 14:37-0400 Respiratory rate 18 /min Peds 18 [facility] 08-12-2023 14:37-0400 SaO2% (BldA) [Mass fraction] 98 % Peds 18 [facility] 08-12-2023 14:37-0400 Systolic blood pressure 127 mm[Hg] Peds 18 [facility] 08-12-2023 08:22-0400 Body height 174.2 cm Peds 18 [facility] 08-12-2023 08:22-0400 Body weight 77.1 kg Peds 18 [facility] 06-26-2023 15:26-0500 Body height 173.5 cm Kentrell Smith MD Work Phone: [facility] 06-26-2023 15:26-0500 Body temperature 95.5 [degF] Kentrell Smith MD Work Phone: [facility] 06-26-2023 15:26-0500 Body weight 71.8 kg Kentrell Smith MD Work Phone: [facility] 06-26-2023 15:26-0500 Diastolic blood pressure 44 mm[Hg] Kentrell Smith MD Work Phone: [facility] 06-26-2023 15:26-0500 Heart rate 57 /min Kentrell Smith MD Work Phone: [facility] 06-26-2023 15:26-0500 SaO2% (BldA) [Mass fraction] 100 % Kentrell Smith MD Work Phone: [facility] 06-26-2023 15:26-0500 Systolic blood pressure 111 mm[Hg] Kentrell Smith MD Work Phone: [facility] 05-08-2023 11:02-0500 Diastolic blood pressure 61 mm[Hg] Michael Roper MD Work Phone: [facility] 05-08-2023 11:02-0500 Systolic blood pressure 112 mm[Hg] Michael Roper MD Work Phone: [facility] 05-08-2023 10:59-0500 Body height 174 cm Michael Roper MD Work Phone: [facility] 05-08-2023 10:59-0500 Body temperature 98.6 [degF] Michael Roper MD Work Phone: [facility] 05-08-2023 10:59-0500 Body weight 73.03 kg Michael Roper MD Work Phone: [facility] 05-08-2023 10:59-0500 Heart rate 52 /min Michael Roper MD Work Phone: [facility] 05-08-2023 10:59-0500 Respiratory rate 20 /min Michael Roper MD Work Phone: [facility] 05-08-2023 10:59-0500 SaO2% (BldA) [Mass fraction] 98 % Michael Roper MD Work Phone: [facility] 01-07-2023 15:24-0400 Body temperature 98.2 [degF] Peds [address] [place] [address] 01-07-2023 15:24-0400 Diastolic blood pressure 52 mm[Hg] Peds 18 [facility] 01-07-2023 15:24-0400 Heart rate 66 /min Peds 18 [facility] 01-07-2023 15:24-0400 Respiratory rate 20 /min Peds [address] [place] [address] 01-07-2023 15:24-0400 SaO2% (BldA) [Mass fraction] 98 % Peds 18 [facility] 01-07-2023 15:24-0400 Systolic blood pressure 113 mm[Hg] Peds 18 [facility] 01-07-2023 08:43-0400 Body height 174 cm Peds 18 [facility] 01-07-2023 08:43-0400 Body weight 73.8 kg Peds 18 [facility] 11-28-2022 08:12-0400 Body height 174 cm James Plascencia MD Work Phone: [facility] 11-28-2022 08:12-0400 Body temperature 97.39 [degF] James Plascencia MD Work Phone: [facility] 11-28-2022 08:12-0400 Body weight 74.1 kg James Plascencia MD Work Phone: [facility] 11-28-2022 08:12-0400 Diastolic blood pressure 56 mm[Hg] James Plascencia MD Work Phone: [facility] 11-28-2022 08:12-0400 Heart rate 74 /min James Plascencia MD Work Phone: [facility] 11-28-2022 08:12-0400 Respiratory rate 20 /min James Plascencia MD Work Phone: [facility] 11-28-2022 08:12-0400 SaO2% (BldA) [Mass fraction] 97 % James Plascencia MD Work Phone: [facility] 11-28-2022 08:12-0400 Systolic blood pressure 128 mm[Hg] James Plascencia MD Work Phone: [facility] 11-07-2022 10:53-0400 Body height 174 cm Michael Roper MD Work Phone: [facility] 11-07-2022 10:53-0400 Body weight 74.84 kg Michael Roper MD Work Phone: [facility] 11-07-2022 10:53-0400 Diastolic blood pressure 57 mm[Hg] Michael Roper MD Work Phone: [facility] 11-07-2022 10:53-0400 Heart rate 60 /min Michael Roper MD Work Phone: [facility] 11-07-2022 10:53-0400 Respiratory rate 20 /min Michael Roper MD Work Phone: [facility] 11-07-2022 10:53-0400 SaO2% (BldA) [Mass fraction] 98 % Michael Roper MD Work Phone: [facility] 11-07-2022 10:53-0400 Systolic blood pressure 114 mm[Hg] Michael Roper MD Work Phone: [facility] 11-07-2022 10:49-0400 Body height 174 cm Kentrell Smith MD Work Phone: [facility] 11-07-2022 10:49-0400 Body weight 74.84 kg Kentrell Smith MD Work Phone: [facility] 11-07-2022 10:49-0400 Diastolic blood pressure 57 mm[Hg] Kentrell Smith MD Work Phone: [facility] 11-07-2022 10:49-0400 Heart rate 60 /min Kentrell Smith MD Work Phone: [facility] 11-07-2022 10:49-0400 Respiratory rate 20 /min Kentrell Smith MD Work Phone: [facility] 11-07-2022 10:49-0400 SaO2% (BldA) [Mass fraction] 98 % Kentrell Smith MD Work Phone: [facility] 11-07-2022 10:49-0400 Systolic blood pressure 114 mm[Hg] Kentrell Smith MD Work Phone: [facility] 07-10-2022 14:23-0400 Body temperature 98.2 [degF] Peds 16 [facility] 07-10-2022 14:23-0400 Diastolic blood pressure 48 mm[Hg] Peds 16 [facility] 07-10-2022 14:23-0400 Heart rate 66 /min Peds 16 [facility] 07-10-2022 14:23-0400 Respiratory rate 18 /min Peds 16 [facility] 07-10-2022 14:23-0400 SaO2% (BldA) [Mass fraction] 98 % Peds 16 [facility] 07-10-2022 14:23-0400 Systolic blood pressure 106 mm[Hg] Peds 16 [facility] 07-10-2022 08:16-0400 Body height 176 cm Peds 16 [facility] 07-10-2022 08:16-0400 Body mass index (BMI) [Percentile] Per age and sex 78.84 % Peds 16 [facility] 07-10-2022 08:16-0400 Body weight 77.9 kg Peds 16 [facility] 05-16-2022 11:57-0500 Body height 174 cm Mello Semple PA-C Work Phone: [facility] 05-16-2022 11:57-0500 Body mass index (BMI) [Percentile] Per age and sex 82.52 % Mello Semple PA-C Work Phone: [facility] 05-16-2022 11:57-0500 Body weight 77.56 kg Mello Semple PA-C Work Phone: [facility] 05-02-2022 11:16-0500 Body height 174 cm Michael Roper MD Work Phone: [facility] 05-02-2022 11:16-0500 Body mass index (BMI) [Percentile] Per age and sex 83.36 % Michael Roper MD Work Phone: [facility] 05-02-2022 11:16-0500 Body temperature 98.01 [degF] Michael Roper MD Work Phone: [facility] 05-02-2022 11:16-0500 Body weight 77.93 kg Michael Roper MD Work Phone: [facility] 05-02-2022 11:16-0500 Diastolic blood pressure 61 mm[Hg] Michael Roper MD Work Phone: [facility] 05-02-2022 11:16-0500 Heart rate 75 /min Michael Roper MD Work Phone: [facility] 05-02-2022 11:16-0500 Respiratory rate 20 /min Michael Roper MD Work Phone: [facility] 05-02-2022 11:16-0500 SaO2% (BldA) [Mass fraction] 98 % Michael Roper MD Work Phone: [facility] 05-02-2022 11:16-0500 Systolic blood pressure 118 mm[Hg] Michael Roper MD Work Phone: [facility] 02-26-2022 13:01-0400 Body height 173.4 cm Kentrell Smith MD Work Phone: [facility] 02-26-2022 13:01-0400 Body mass index (BMI) [Percentile] Per age and sex 76.61 % Kentrell Smith MD Work Phone: [facility] 02-26-2022 13:01-0400 Body temperature 98.01 [degF] Kentrell Smith MD Work Phone: [facility] 02-26-2022 13:01-0400 Body weight 73.94 kg Kentrell Smith MD Work Phone: [facility] 02-26-2022 13:01-0400 Diastolic blood pressure 55 mm[Hg] Kentrell Smith MD Work Phone: [facility] 02-26-2022 13:01-0400 Heart rate 56 /min Kentrell Smith MD Work Phone: [facility] 02-26-2022 13:01-0400 Respiratory rate 20 /min Kentrell Smith MD Work Phone: [facility] 02-26-2022 13:01-0400 SaO2% (BldA) [Mass fraction] 98 % Kentrell Smith MD Work Phone: [facility] 02-26-2022 13:01-0400 Systolic blood pressure 123 mm[Hg] Kentrell Smith MD Work Phone: [facility] 10-03-2021 10:13-0400 Body height 171 cm Kentrell Smith MD Work Phone: [facility] 10-03-2021 10:13-0400 Body mass index (BMI) [Percentile] Per age and sex 89.57 % Kentrell Smith MD Work Phone: [facility] 10-03-2021 10:13-0400 Body weight 78.1 kg Kentrell Smith MD Work Phone: [facility] 10-03-2021 10:13-0400 Diastolic blood pressure 59 mm[Hg] Kentrell Smith MD Work Phone: [facility] 10-03-2021 10:13-0400 Heart rate 64 /min Kentrell Smith MD Work Phone: [facility] 10-03-2021 10:13-0400 Respiratory rate 20 /min Kentrell Smith MD Work Phone: [facility] 10-03-2021 10:13-0400 SaO2% (BldA) [Mass fraction] 100 % Kentrell Smith MD Work Phone: [facility] 10-03-2021 10:13-0400 Systolic blood pressure 128 mm[Hg] Kentrell Smith MD Work Phone: [facility] Encounters Encounter Date Encounter Type Care Provider Facility Start: 11-20-2023 Telephone encounter Dixie vargas Comment on above: Orders Start: 11-16-2023 End: 11-16-2023 ambulatory [facility] Start: 11-12-2023 Social Work [facility] Comment on above: Needs assistance wit h community resources (Primary Dx) Encounter for social work intervention (Primary Dx) Patient Question Start: 11-11-2023 Social Work [facility] Comment on above: Need for community r esource (Primary Dx) Start: 11-06-2023 End: 11-06-2023 ambulatory MICHAEL ROPER Facility:[facility] Start: 11-06-2023 End: 11-06-2023 Patient encounter procedure Michael Roper MD Work Phone: Neurology Comment on above: Symk-H-jyqopr-D-aspa rtate (NMDA) receptor encephalitis (Primary Dx) Start: 10-21-2023 ambulatory Graciela Diaz MD Work Phone: [facility] Comment on above: CC Autoimmune Enceph alitis Patient Day Start: 10-21-2023 E-mail encounter fro m caregiver Graciela Diaz MD Work Phone: [facility] Start: 10-19-2023 ambulatory Юлия Cornejo MD Work Phone: Urology Start: 10-06-2023 Telephone encounter Paras Bowens MD Work Phone: Urology Start: 09-28-2023 End: 10-26-2023 ambulatory [facility] Start: 09-18-2023 End: 09-18-2023 ambulatory KEREN DEJA Facility:[facility] Start: 09-11-2023 End: 09-11-2023 [facility] Start: 09-10-2023 End: 09-10-2023 ambulatory Kentrell Smith MD Work Phone: Neurology Comment on above: Anti-NMDAR encephali tis; Refractory epilepsy (HCC) Start: 09-10-2023 End: 09-10-2023 Telemedicine consultation with patient Kentrell Smith MD Work Phone: Neurology Start: 09-09-2023 Telephone encounter Michael Iraheta ms, MD Work Phone: Neurology Start: 08-26-2023 End: 2023 ambulatory [facility] Start: 08-12-2023 End: 08-12-2023 ambulatory Peds Chair 18 [facility] Comment on above: Anti-NMDA receptor e ncephalitis (Primary Dx) Judi doctorbenito Start: 08-11-2023 Telephone encounter Paras Bowens MD Work Phone: [facility] Start: 08-05-2023 Telephone encounter Kentrell Smith MD Work Phone: Neurology Comment on above: Insurance Authorizat ion Opened In Error Start: 08-04-2023 Refill Kentrell chandler MD Work Phone: Neurology Comment on above: Refill Request Start: 08-03-2023 End: 08-03-2023 Patient encounter procedure Paras Bowens MD Work Phone: Urology Comment on above: Bilateral kidney sto rox (Primary Dx) Start: 08-03-2023 Telephone encounter Kentrell Smith MD Work Phone: Neurology Comment on above: Forms (FMLA) Start: 08-03-2023 End: 08-03-2023 ambulatory ЮЛИЯ CORNEJO Facility:[facility] Start: 07-27-2023 End: 08-26-2023 ambulatory [facility] Start: 07-10-2023 End: 07-10-2023 Orders Only Paras Bowens MD Work Phone: Urology Comment on above: Bilateral kidney sto rox (Primary Dx) Start: 07-08-2023 ambulatory Kentrell chandler MD Work Phone: Pediatric Epilepsy Comment on above: Judi marshall Start: 07-08-2023 End: 07-10-2023 Evaluation and management of inpatient [facility] Facility: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 Start: 05-08-2023 End: 05-08-2023 Patient encounter procedure Michael Roper MD Work Phone: Neurology Comment on above: Nvqx-N-tcgfea-D-aspa rtate (NMDA) receptor encephalitis (Primary Dx); Tremor of right hand Start: 03-14-2023 End: 03-16-2023 ambulatory [facility] Facility:[facility] Start: 03-06-2023 End: 03-06-2023 [facility] Facility:[facility] Start: 01-07-2023 End: 01-07-2023 ambulatory Peds Chair 18 [facility] Comment on above: Anti-NMDA receptor e ncephalitis (Primary Dx) Start: 12-09-2022 Telephone encounter Kentrell Smith MD Work Phone: Neurology Comment on above: Forms (sap) Start: 11-28-2022 End: 11-28-2022 Patient encounter procedure James Plascencia MD Work Phone: Pediatric Cardiology Comment on above: Nonspecific abnormal electrocardiogram (ECG) (EKG) (Primary Dx); Anti-NMDA receptor encephalitis; History of encephalitis; S/P craniotomy Start: 11-28-2022 End: 11-28-2022 ambulatory JAMES PLASCENCIA Facility: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); Generalized epilepsy (HCC) Ufar-S-kggfru-D-aspa rtate (NMDA) receptor encephalitis (Primary Dx) Insurance Authorizat ion (topiramte) Start: 11-03-2022 Refill Kentrell chandler MD Work Phone: Neurology Comment on above: Refill Request Start: 10-22-2022 Refill Kentrell chandler MD Work Phone: Neurology Comment on above: Refill Request Start: 07-24-2022 Telephone encounter Kentrell Smith MD Work Phone: Neurology Comment on above: Letter (Excuse From School) Start: 07-14-2022 End: 07-14-2022 Subsequent hospital visit by physician Mello Abarca PA-C Work Phone: Radiology Comment on above: Demyelinating diseas e of central nervous system (HCC) [G37.9] Start: 07-10-2022 End: 07-10-2022 ambulatory Peds Chair 16 [facility] Comment on above: Anti-NMDA receptor e ncephalitis (Primary Dx) Start: 07-03-2022 Orders Only Michael Persaud Work Phone: Neurology Start: 07-02-2022 Telephone encounter Jessica Barboza Pediatric Infusion Comment on above: Patient Update (Prio r Auth Rituximab (PENDING)) Start: 07-01-2022 Telephone encounter Michael Iraheta ms, MD Work Phone: Neurology Comment on above: Results Start: 06-19-2022 Telephone encounter Michael Iraheta ms, MD Work Phone: Neurology Comment on above: Orders Start: 06-18-2022 End: 06-18-2022 ambulatory Michael Roper MD Work Phone: Neurology Comment on above: Qxaz-D-tqqpov-D-aspa rtate (NMDA) receptor encephalitis (Primary Dx) Start: 06-18-2022 End: 06-18-2022 Telemedicine consultation with patient Michael Roper MD Work Phone: [facility] Start: 06-16-2022 ambulatory Kentrell chandler MD Work Phone: Neurology Comment on above: Wilson burgos Start: 06-16-2022 Telephone encounter Kentrell Smith MD Work Phone: Neurology Comment on above: medication concern ( topiramte, depakote) Start: 06-13-2022 Telephone encounter Michael Iraheta ms, MD Work Phone: Neurology Comment on above: Patient Update Start: 06-05-2022 Telephone encounter Kentrell Smith MD Work Phone: Neurology Comment on above: Forms ([facility] [address]) Start: 05-16-2022 End: 05-16-2022 Subsequent hospital visit by physician [facility] R[facility] 1 Work Phone: Radiology Comment on above: Pain of left lower e xtremity [M79.605] Start: 05-16-2022 End: 05-16-2022 Patient encounter procedure Mello Abarca PA-C Work Phone: Orthopaedics Comment on above: H/O: encephalitis (P rimary Dx); Pain of left lower extremity; Demyelinating disease of central nervous system (HCC) Start: 05-16-2022 End: 05-16-2022 Subsequent hospital visit by physician [facility] General Xray A21 Radiology Comment on above: Pain of left lower e xtremity [M79.605] Start: 05-06-2022 End: 05-06-2022 Telemedicine consultation with patient Kentrell Smith MD Work Phone: [facility] Start: 05-06-2022 End: 05-06-2022 ambulatory Kentrell Smith MD Work Phone: Neurology Comment on above: Ifdv-F-kgppqp-D-aspa rtate (NMDA) receptor encephalitis; 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) Atul Burgos Start: 05-05-2022 Telephone encounter Kentrell Smith MD Work Phone: Neurology Comment on above: Outside Lab Results ([facility]) Start: 05-02-2022 End: 05-02-2022 Patient encounter procedure Michael Roper MD Work Phone: Neurology Comment on above: Grej-W-vojhub-D-aspa rtate receptor (anti-NMDAR) encephalitis (Primary Dx); Pain of left lower extremity Start: 04-23-2022 Telephone encounter Kentrell Smith MD Work Phone: Neurology Comment on above: Orders (labs) Start: 04-08-2022 ambulatory Kentrell chandler MD Work Phone: Neurology Comment on above: Atul richard sara Start: 03-26-2022 Refill Kentrell chandler MD Work Phone: Neurology Comment on above: Refill Request Start: 03-24-2022 Telephone encounter Kentrell Smith MD Work Phone: Neurology Comment on above: Medication Concern ( Vitamin D) Start: 02-26-2022 End: 02-27-2022 Patient encounter procedure Kentrell Smith MD Work Phone: Neurology Comment on above: 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, not intractable, without status epilepticus (HCC) (Primary Dx); Dfwi-Y-afhdrt-D-aspartate (NMDA) receptor encephalitis; 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) Start: 01-27-2022 End: 01-27-2022 Patient encounter procedure Michael Roper MD Work Phone: Neurology Comment on above: Zfmh-X-tsitpq-D-aspa rtate (NMDA) receptor encephalitis (Primary Dx); Seizure-like activity (HCC) Start: 01-22-2022 Chart abstracting Michael Roper MD Work Phone: Neurology Comment on above: Letter (Guardianship letter from Court [place] [employer] [facility] ) Start: 01-21-2022 Orders Only Michael Persaud Work Phone: Neurology Start: 01-17-2022 Chart abstracting Michael Roper MD Work Phone: Neurology Comment on above: Insurance Authorizat ion (Rituximab infusion (2nd loading dose)) Start: 01-10-2022 Telephone encounter Kentrell Smith MD Work Phone: Neurology Comment on above: Other (Med issue) Start: 01-08-2022 Telephone encounter Юлия Mooneyryan [facility] Comment on above: Medication Problem ( Treatment Planning) Treatment Planning ( medications) Start: 01-03-2022 Telephone encounter Melly cuadra Work Phone: NOC Comment on above: Outpatient Dvt Tx; F ollow Up Phone Call (Post Discharge F/U - attempt made. No answer./) Start: 12-31-2021 Orders Only [facility] M[facility] Comment on above: judi rolando kiran la ortiz burgos Start: 12-27-2021 Telephone encounter Kentrell Smith MD Work Phone: Neurology Comment on above: General (OT) Start: 12-25-2021 Telephone encounter Kentrell Smith MD Work Phone: Neurology Comment on above: Letter (Letter for macie menezes) Start: 12-17-2021 Telephone encounter Kentrell Smith MD Work Phone: Neurology Comment on above: Forms (SAP) Start: 12-16-2021 Telephone encounter Kentrell Smith MD Work Phone: Neurology Comment on above: Medication Problem Start: 12-09-2021 Refill Kentrell chandler MD Work Phone: Neurology Comment on above: Refill Request Start: 12-05-2021 ambulatory Kentrell chandler MD Work Phone: Neurology Comment on above: Ortiz Burgos Start: 11-29-2021 Telephone encounter Kentrell Smith MD Work Phone: Neurology Comment on above: Seizures Start: 11-28-2021 ambulatory Kami Sandoval RN C [facility] Comment on above: ortiz Burgos Start: 11-28-2021 Telephone encounter Melly cuadra Work Phone: [address] [place] [address] Comment on above: Patient Update (I le ft a voicimail to mom about the new medication that we have discussed in the past, we are going to start risperdal 0.5 mg at night for 3 days and then go to 1 mg. I m seeing them later on this week T Deja ); Orders (I put a refill for risperdal 1 mg for 30 days /T Deja ) Start: 11-28-2021 Telephone follow-up Kami Bueno in [place] [facility] Comment on above: Follow Up Phone Call Start: 11-27-2021 Telephone encounter Melly cuadra Work Phone: NOC Comment on above: Follow Up Phone Call ( Post Discharge F/U attempt made. No answer.) Other (Call from mom requesting social work help to arrange rehab) Start: 11-26-2021 Telephone encounter Kentrell Smith MD Work Phone: Neurology Comment on above: General Start: 11-18-2021 Telephone encounter Samantha laura MD Work Phone: Neurology Comment on above: Encephalitis Opened In Error Start: 11-15-2021 Telephone encounter Kentrell Smith MD Work Phone: Neurology Comment on above: Medication Problem ( AEDs - Patient Sleeping Most Of The Day) Start: 11-11-2021 Telephone encounter Kentrell Smith MD Work Phone: Neurology Comment on above: Patient Update Start: 11-07-2021 Telephone encounter Melly cuadra Work Phone: NOC Comment on above: Follow Up Phone Call (Post Discharge F/U attempt made. 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) Start: 11-01-2021 Chart abstracting Kentrell Smith MD Work Phone: Neurology Comment on above: Refill Request Start: 10-25-2021 Telephone encounter Kentrell Smith MD Work Phone: Neurology Comment on above: Medication Problem ( Xcopri - Change in Behavior - Anger Issues) Start: 10-07-2021 Telephone encounter Kentrell Smith MD Work Phone: Neurology Comment on above: Medication Question (new medication) Start: 10-04-2021 Telephone encounter Kentrell Smith MD Work Phone: Neurology Comment on above: Results (Vitamin D) Start: 10-03-2021 End: 10-03-2021 Patient encounter procedure Kentrell Smith MD Work Phone: Neurology Comment on above: Encephalopathy (Prim faina Dx); Focal epilepsy with impairment of consciousness, intractable (HCC) Start: 10-01-2021 Telephone encounter Kentrell Smith MD Work Phone: Neurology Comment on above: Patient Update (POA) Medication Authoriza tion (Xcopri) Start: 09-30-2021 Telephone encounter Kentrell Smith MD Work Phone: Neurology Comment on above: Seizures Start: 2021 Telephone encounter Kentrell Smith MD Work Phone: Neurology Comment on above: Treatment Planning Start: 09-25-2021 Telephone encounter Melly cuadra Work Phone: NOC Comment on above: Follow Up Phone Call ( Post Discharge F/U attempt made. 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) Start: 09-19-2021 Chart abstracting Kentrell Smith MD Work Phone: Neurology Comment on above: Refill Request Start: 09-18-2021 Telephone encounter Kentrell Smith MD Work Phone: Neurology Comment on above: Seizures Refill Request Procedures Date Procedure Procedure Detail Performing Clinician Start: 08-12-2023 Blood count complete auto&auto difrntl wbc Michael Roper MD Work Phone: Start: 08-12-2023 HEP REMOTE PANEL BL Tasha Roper MD Work Phone: Start: 08-12-2023 Hepatitis c antibody Efraín Roper MD Work Phone: Start: 08-12-2023 Iaad ia hepatitis b surface antigen Michael Roper MD Work Phone: Start: 01-07-2023 Blood count complete auto&auto difrntl wbc Michael Roper MD Work Phone: Start: 01-07-2023 Hepatitis c antibody Efraín Roper MD Work Phone: Start: 01-07-2023 Iaad ia hiv-1 ag w/h iv-1 & hiv-2 antbdy single Michael Roper MD Work Phone: Start: 07-14-2022 Mri spinal canal lum bar w/o contrast material Mello Abarca PA-C Work Phone: Start: 07-10-2022 Blood count complete auto&auto difrntl wbc Michael Roper MD Work Phone: Start: 07-10-2022 HEP REMOTE PANEL BL Aar zoey Roper MD Work Phone: Start: 07-10-2022 Hepatitis c antibody Efraín Roper MD Work Phone: Start: 07-10-2022 Iaad ia hepatitis b surface antigen Michael Roper MD Work Phone: Start: 05-16-2022 Radiologic examinati on femur minimum 2 views Michael Roper MD Work Phone: Start: 12-05-2021 Adult depression screening assessment Kentrell Smith MD Work Phone: Start: 08-26-2021 Adult depression screening assessment Kentrell Smith MD Work Phone: Start: 02-12-2018 End: 06-01-2018 H/O: surgery S/P brain surgery Kentrell Smith MD Work Phone: Plan of Treatment Date Care Activity Detail Author Start: 09-25-2053 SHINGRIX VACCINE (1 of 2) SHINGRIX VACCINE (1 of 2) [facility] Start: 12-20-2025 Urine microalbumin profile [facility] Start: 05-06-2024 End: 05-06-2024 Patient encounter procedure 05/06/2024 11:20 AM EST Office Visit Neurology [address] [place], [place] [id number] Michael Roper MD [address] [place], [place] [id number] follow up Neurology Comment on above: follow up Start: 02-11-2024 End: 02-11-2024 ambulatory 02/11/2024 8:00 AM EDT [facility] [address] [place] [address] [id number] - INJ RUXIENCE, 10 MG Pediatric Infusion Comment on above: Q5119 - INJ RUXIENCE, 10 MG Start: 01-22-2024 End: 01-22-2024 Patient encounter procedure 01/22/2024 11:20 AM EDT Office Visit Pediatric Epilepsy [address] [place], [place] [id number] Kentrell Abdullahi MD [address] [place], [place] [id number] PMU f/u Pediatric Epilepsy Comment on above: PMU f/u Start: 01-12-2024 End: 01-12-2024 ambulatory 01/12/2024 8:00 AM EDT [facility] [address] [place] [address] Q5119 - INJ RUXIENCE, 10 MG Pediatric Infusion Comment on above: Q5119 - INJ RUXIENCE, 10 MG Start: 12-27-2023 Influenza vaccination [facility] Start: 11-06-2023 End: 11-06-2023 Patient encounter procedure 11/06/2023 11:00 AM EDT Office Visit Neurology [address] [place] [address] Michael Roper MD [address] [place], [place] [id number] 6m f/u Neurology Comment on above: 6m f/u Start: 10-30-2023 End: 10-30-2023 Patient encounter procedure 10/30/2023 11:00 AM EDT Office Visit Pediatric Epilepsy [address] [place], [place] [id number] Kentrell Abdullahi MD [address] [place] [address] PMU f/u Pediatric Epilepsy Comment on above: PMU f/u Start: 10-19-2023 End: 10-19-2023 Patient encounter procedure 10/19/2023 2:45 PM EDT Office Visit Urology [address] [address] Paras Bowens MD [address] [place] [address] [facility] Comment on above: [facility] Start: 10-05-2023 End: 10-05-2023 Follow-up encounter 10/05/2023 3:15 PM EDT [facility] [address] [address] Paras Bowens MD [address] [place] [address] virtual follow up per cc chart Urology Comment on above: virtual follow up per cc chart Start: 07-10-2023 End: 10-09-2023 Comprehensive metabolic 2000 panel - Serum or Plasma COMP METABOLIC PANEL Lab Routine Bilateral kidney stones Expected: 07/10/2023, Expires: 10/09/2023 [facility] Work Phone: Comment on above: Expected: 07/10/2023, Expires: 4 Start: 04-27-2023 Behavioral Health Screening Behavioral Health Screening [facility] Start: 04-27-2023 Depression Assessment Depression Assessment [facility] Start: 12-26-2022 Influenza vaccination [facility] Start: 12-05-2022 Adult depression screening assessment DEPRESSION SCREENING [facility] Start: 11-07-2022 End: 01-07-2023 10-Hydroxycarbazepine [Mass/volume] in Serum or Plasma [facility] Work Phone: Comment on above: Expected: 11/07/2022, Expires: 3 Start: 11-07-2022 End: 01-07-2023 Comprehensive metabolic 2000 panel - Serum or Plasma [facility] Work Phone: Comment on above: Expected: 11/07/2022, Expires: 3 Start: 09-25-2022 SHINGRIX VACCINE (1 of 2) SHINGRIX VACCINE (1 of 2) [facility] Start: 08-26-2022 Adult depression screening assessment DEPRESSION SCREENING [facility] Start: 06-19-2022 End: 08-19-2022 10-Hydroxycarbazepine [Mass/volume] in Serum or Plasma OXCARBAZEPINE BLD Lab Routine Partial epilepsy with intractable epilepsy (HCC) Expected: 06/19/2022, Expires: 08/19/2022 [facility] Work Phone: Comment on above: Expected: 06/19/2022, Expires: 3 Start: 06-19-2022 End: 08-19-2022 Topiramate [Mass/volume] in Serum or Plasma TOPIRAMATE BLD Lab Routine Partial epilepsy with intractable epilepsy (HCC) Expected: 06/19/2022, Expires: 08/19/2022 [facility] Work Phone: Comment on above: Expected: 06/19/2022, Expires: 3 Start: 06-19-2022 End: 08-19-2022 Valproate [Mass/volume] in Serum or Plasma VALPROIC A/DEPAKENE Lab Routine Partial epilepsy with intractable epilepsy (HCC) Expected: 06/19/2022, Expires: 08/19/2022 [facility] Work Phone: Comment on above: Expected: 06/19/2022, Expires: Start: 06-18-2022 End: 08-18-2022 Ammonia [Moles/volume] in Plasma AMMONIA BLD Lab Routine Iqgk-Q-leftdt-D-asparta te (NMDA) receptor encephalitis Expected: 06/18/2022, Expires: 08/18/2022 [facility] Work Phone: Comment on above: Expected: 06/18/2022, Expires: Start: 06-18-2022 End: 08-18-2022 CBC W Auto Differential panel - Blood CBC + DIFF Lab Routine Kgij-G-zcmpfs-D-asparta te (NMDA) receptor encephalitis Expected: 06/18/2022, Expires: 08/18/2022 [facility] Work Phone: Comment on above: Expected: 06/18/2022, Expires: Start: 06-18-2022 End: 08-18-2022 Comprehensive metabolic 2000 panel - Serum or Plasma COMP METABOLIC PANEL Lab Routine Nnvw-M-saikte-D-asparta te (NMDA) receptor encephalitis Expected: 06/18/2022, Expires: 08/18/2022 [facility] Work Phone: Comment on above: Expected: 06/18/2022, Expires: 3 Start: 06-18-2022 End: 08-18-2022 Creatine kinase [Enzymatic activity/volume] in Serum or Plasma CK CREATINE KINASE Lab Routine Qvkp-M-mazmxc-D-asparta te (NMDA) receptor encephalitis Expected: 06/18/2022, Expires: 08/18/2022 [facility] Work Phone: Comment on above: Expected: 06/18/2022, Expires: Start: 06-18-2022 End: 08-18-2022 IgG [Mass/volume] in Serum or Plasma IGG Lab Routine Tudk-T-pgfing-D-asparta te (NMDA) receptor encephalitis Expected: 06/18/2022, Expires: 08/18/2022 [facility] Work Phone: Comment on above: Expected: 06/18/2022, Expires: Start: 06-18-2022 End: 08-18-2022 IgM [Mass/volume] in Serum or Plasma IGM Lab Routine Erqk-R-qhbkmg-D-asparta te (NMDA) receptor encephalitis Expected: 06/18/2022, Expires: 08/18/2022 [facility] Work Phone: Comment on above: Expected: 06/18/2022, Expires: Start: 06-18-2022 End: 08-18-2022 Immunodeficiency panel - Blood by Flow cytometry (FC) IMMUNODEFICIENCY CDC Lab Routine Oucv-N-etulru-D-asparta te (NMDA) receptor encephalitis Expected: 06/18/2022, Expires: 08/18/2022 [facility] Work Phone: Comment on above: Expected: 06/18/2022, Expires: Start: 06-18-2022 End: 07-02-2022 Influenza virus A and B RNA and SARS-CoV-2 (COVID-19) N gene panel - Respiratory specimen by GABBI with probe detection COVID WITH FLUA+B, ROUTINE Microbiology Routine Hqch-H-jiloha-D-asparta te (NMDA) receptor encephalitis Expected: 06/18/2022, Expires: 07/02/2022 [facility] Work Phone: Comment on above: Expected: 06/18/2022, Expires: Start: 06-18-2022 End: 08-18-2022 NMDA RECEPTOR ANTIBODY, IGG NMDA RECEPTOR ANTIBODY, IGG Lab Routine Druy-P-hatfwl-D-asparta te (NMDA) receptor encephalitis Expected: 06/18/2022, Expires: 08/18/2022 [facility] Work Phone: Comment on above: Expected: 06/18/2022, Expires: Start: 06-18-2022 End: 08-18-2022 Respiratory pathogens DNA and RNA 12b panel - Unspecified specimen by GABBI with probe detection RESPIRATORY PANEL BY RAPID PCR (WITH COVID) Microbiology Routine Ouny-G-zphvxr-D-asparta te (NMDA) receptor encephalitis Expected: 06/18/2022, Expires: 08/18/2022 [facility] Work Phone: Comment on above: Expected: 06/18/2022, Expires: 3 Start: 05-29-2022 End: 07-29-2022 Comprehensive metabolic 2000 panel - Serum or Plasma COMP METABOLIC PANEL Lab Routine 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calized onset, not intractable, without status epilepticus (HCC) Expected: 05/29/2022, Expires: 07/29/2022 [facility] Work Phone: Comment on above: Expected: 05/29/2022, Expires: 3 Start: 05-16-2022 End: 07-16-2022 C reactive protein [Mass/volume] in Serum or Plasma [facility] Work Phone: Comment on above: Expected: 05/16/2022, Expires: 3 Start: 05-06-2022 End: 07-06-2022 10-Hydroxycarbazepine [Mass/volume] in Serum or Plasma OXCARBAZEPINE BLD Lab Routine Kaib-U-ohpdsx-D-asparta 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) Expected: 05/06/2022, Expires: 07/06/2022 [facility] Work Phone: Comment on above: Expected: 05/06/2022, Expires: Start: 05-06-2022 End: 07-06-2022 Topiramate [Mass/volume] in Serum or Plasma TOPIRAMATE BLD Lab Routine Orjv-K-mhhyyg-D-asparta 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) Expected: 05/06/2022, Expires: 07/06/2022 [facility] Work Phone: Comment on above: Expected: 05/06/2022, Expires: 3 Start: 04-27-2022 DEPRESSION ASSESSMENT DEPRESSION ASSESSMENT [facility] Start: 02-26-2022 End: 04-28-2022 10-Hydroxycarbazepine [Mass/volume] in Serum or Plasma OXCARBAZEPINE BLD Lab Routine 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calized onset, not intractable, without status epilepticus (HCC) Expected: 02/26/2022, Expires: 04/28/2022 [facility] Work Phone: Comment on above: Expected: 02/26/2022, Expires: 3 Start: 02-26-2022 End: 04-28-2022 25-hydroxyvitamin D3 [Mass/volume] in Serum or Plasma VITAMIN D 25 HYDROXY Lab Routine 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calized onset, not intractable, without status epilepticus (HCC) Expected: 02/26/2022, Expires: 04/28/2022 [facility] Work Phone: Comment on above: Expected: 02/26/2022, Expires: 3 Start: 02-26-2022 End: 04-28-2022 Valproate [Mass/volume] in Serum or Plasma VALPROIC A/DEPAKENE Lab Routine 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calized onset, not intractable, without status epilepticus (HCC) Expected: 02/26/2022, Expires: 04/28/2022 [facility] Work Phone: Comment on above: Expected: 02/26/2022, Expires: 3 Start: 12-26-2021 Influenza vaccination [facility] Start: 10-03-2021 End: 12-03-2021 10-Hydroxycarbazepine [Mass/volume] in Serum or Plasma [facility] Work Phone: Comment on above: Expected: 10/03/2021, Expires: 2 Start: 10-03-2021 End: 12-03-2021 AUTOIMMUNE ENCEPHALOPATHY EVALUATION, SERUM [facility] Work Phone: Comment on above: Expected: 10/03/2021, Expires: 2 Start: 10-03-2021 End: 12-03-2021 EXTRA TUBES EXTRA TUBES Lab Routine Encephalopathy Focal epilepsy with impairment of consciousness, intractable (HCC) Expected: 10/03/2021, Expires: 12/03/2021 [facility] Work Phone: Comment on above: Expected: 10/03/2021, Expires: 2 Start: 10-03-2021 End: 12-03-2021 Nuclear Ab [Presence] in Serum by Immunoassay [facility] Work Phone: Comment on above: Expected: 10/03/2021, Expires: 2 Start: 10-03-2021 End: 12-03-2021 Topiramate [Mass/volume] in Serum or Plasma [facility] Work Phone: Comment on above: Expected: 10/03/2021, Expires: 2 Start: 09-25-2021 Anxiety Screening Anxiety Screening [facility] Start: 09-25-2021 Depression Screening Depression Screening [facility] Start: 09-25-2021 HEPATITIS C SCREENING HEPATITIS C SCREENING [facility] Start: 09-25-2021 HIV SCREENING HIV SCREENING [facility] Start: 04-27-2021 DEPRESSION ASSESSMENT DEPRESSION ASSESSMENT [facility] Start: 2019 MENINGOCOCCAL CONJUGATE (1 - 2-dose series) MENINGOCOCCAL CONJUGATE (1 - 2-dose series) [facility] Start: 2019 MENINGOCOCCAL CONJUGATE (2 - 2-dose series) MENINGOCOCCAL CONJUGATE (2 - 2-dose series) [facility] Start: 09-25-2017 PEDS TO ADULT TRANSITION ANNUAL ASSESSMENT PEDS TO ADULT TRANSITION ANNUAL ASSESSMENT [facility] Start: 2015 PEDS TO ADULT TRANSITION INITIAL DISCUSSION PEDS TO ADULT TRANSITION INITIAL DISCUSSION [facility] Start: 09-25-2014 HPV VACCINE (1 - Male 2-dose series) HPV VACCINE (1 - Male 2-dose series) [facility] Start: 09-25-2013 MENINGOCOCCAL B: Consider based on risk (1 of 2 - Risk Bexsero 2-dose series) MENINGOCOCCAL B: Consider based on risk (1 of 2 - Risk Bexsero 2-dose series) [facility] Start: 09-25-2010 Urine microalbumin profile DTAP,TDAP,TD (5 - Tdap) [facility] Start: 09-25-2008 COVID-19 VACCINE (#1) COVID-19 VACCINE (#1) [facility] Start: 2007 MMR (2 of 2 - Standard series) MMR (2 of 2 - Standard series) [facility] Start: 2007 POLIO (4 of 4 - 4-dose series) POLIO (4 of 4 - 4-dose series) [facility] Start: 2007 VARICELLA (2 of 2 - 2-dose childhood series) VARICELLA (2 of 2 - 2-dose childhood series) [facility] Start: 09-27-2006 PNEUMOCOCCAL (2 - PCV) PNEUMOCOCCAL (2 - PCV) [facility] Start: 09-27-2006 [facility] Start: 11-22-2005 PNEUMOCOCCAL (2 - PCV) PNEUMOCOCCAL (2 - PCV) [facility] Start: 03-27-2004 COVID-19 VACCINE (#1) COVID-19 VACCINE (#1) [facility] End: 01-07-2023 AUTOIMMUNE ENCEPHALOPATHY EVALUATION, SERUM [facility] Work Phone: Comment on above: ONCE for 1 Occurrences starting 01/08/20 23 until 01/07/2023 End: 08-12-2023 AUTOIMMUNE ENCEPHALOPATHY EVALUATION, SERUM [facility] Work Phone: Comment on above: ONCE for 1 Occurrences starting 08/12/19 24 until 08/12/2023 BLOOD TB SCREEN BLOOD TB SCREEN Lab Routine Anti-NMDA receptor encephalitis 07/10/2022 8:32 AM EDT [facility] Work Phone: End: 01-07-2023 BLOOD TB SCREEN [facility] Work Phone: Comment on above: ONCE for 1 Occurrences starting 01/08/20 23 until 01/07/2023 End: 08-12-2023 BLOOD TB SCREEN [facility] Work Phone: Comment on above: ONCE for 1 Occurrences starting 08/12/19 24 until 08/12/2023 CALCIUM, 24 HR URINE CALCIUM, 24 HR URINE Lab Routine Bilateral kidney stones Ordered: 11/20/2023 [facility] Comment on above: Ordered: 11/20/2023 End: 01-07-2023 Chronic hepatitis differentiation between hepatitis B and C virus panel - Serum or Plasma [facility] Work Phone: Comment on above: ONCE for 1 Occurrences starting 01/08/20 23 until 01/07/2023 Citrate [Mass/time] in 24 hour Urine CITRATE 24 HR URINE Lab Routine Bilateral kidney stones Ordered: 11/20/2023 [facility] Comment on above: Ordered: 11/20/2023 CREATININE, 24 HOUR URINE CREATI NINE, 24 HOUR URINE Lab Routine Bilateral kidney stones Ordered: 11/20/2023 [facility] Comment on above: Ordered: 11/20/2023 End: 06-01-2023 Dup-scan xtr veins unilateral/limited study US DVT LOWER LT Radiology Routine Pain of left lower extremity 1 Occurrences starting 05/02/2022 until 06/01/2023 [facility] Work Phone: Comment on above: 1 Occurrences starting 05/02/2022 until 06/01/2023 End: 05-16-2022 Dup-scan xtr veins unilateral/limited study US DVT LOWER LT Radiology Routine Pain of left lower extremity 1 Occurrences starting 05/16/2022 until 05/16/2022 [facility] Work Phone: Comment on above: 1 Occurrences starting 05/16/2022 until 05/16/2022 EPIL VEEG ADMIT TO EMU/PMU EPIL VEEG ADMIT TO EMU/PMU NEUROLOGY STAT Nvhx-C-lqoclw-D-asparta 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) Ordered: 09/19/2021 [facility] Work Phone: Comment on above: Ordered: 09/19/2021 EPIL VEEG ADMIT TO EMU/PMU EPIL VEEG ADMIT TO EMU/PMU NEUROLOGY STAT 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), inattentive type Ordered: 11/01/2021 [facility] Work Phone: Comment on above: Ordered: 11/01/2021 EPIL VEEG ADMIT TO EMU/PMU EPIL VEEG ADMIT TO EMU/PMU NEUROLOGY Routine Zcvj-N-nadwks-D-asparta 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) Ordered: 11/07/2022 [facility] Work Phone: Comment on above: Ordered: 11/07/2022 End: 06-18-2023 Gas and Carbon monoxide panel - Venous blood VENOUS BLOOD GASES Lab Routine Xgfg-P-fklcmp-D-asparta te (NMDA) receptor encephalitis 1 Occurrences starting 06/18/2022 until 06/18/2023 [facility] Work Phone: Comment on above: 1 Occurrences starting 06/18/2022 until 06/18/2023 End: 01-07-2023 Hepatitis B virus surface Ag [Presence] in Serum [facility] Work Phone: Comment on above: Once for 1 Occurrences starting 01/08/20 until 01/07/2023 Immunodeficiency martines el - Blood by Flow cytometry (FC) IMMUNODEFICIENCY CDC Lab Routine Anti-NMDA receptor encephalitis 07/10/2022 8:32 AM EDT [facility] Work Phone: End: 09-20-2022 Magnetoencephalography spon brain activity EPIL TIARA SPONTANEOUS BRAIN ACTIVTY NEUROLOGY Routine 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) 1 Occurrences starting 09/20/2021 until 09/20/2022 [facility] Work Phone: Comment on above: 1 Occurrences starting 09/20/2021 until 09/20/2022 End: 12-04-2022 Mri brain brain stem w/o w/contrast material MRI BRAIN WO/W IVCON Radiology Routine 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) 1 Occurrences starting 11/04/2021 until 12/04/2022 [facility] Work Phone: Comment on above: 1 Occurrences starting 11/04/2021 until 12/04/2022 End: 06-15-2023 Mri spinal canal lumbar w/o contrast material MRI LUMBAR SPINE WO IVCON Radiology Routine Demyelinating disease of central nervous system (HCC) 1 Occurrences starting 05/16/2022 until 06/15/2023 [facility] Phone: Comment on above: 1 Occurrences starting 05/16/2022 until 06/15/2023 End: 01-07-2023 NMDA RECEPTOR ANTIBODY, IGG [facility] Work Phone: Comment on above: ONCE for 1 Occurrences starting 01/08/20 23 until 01/07/2023 End: 08-12-2023 NMDA RECEPTOR ANTIBODY, IGG [facility] Work Phone: Comment on above: ONCE for 1 Occurrences starting 08/12/19 24 until 08/12/2023 Oxalate [Mass/time] in 24 hour Urine OXALATE 24 HR URINE Lab Routine Bilateral kidney stones Ordered: 11/20/2023 [facility] Comment on above: Ordered: 11/20/2023 End: 06-15-2023 Radex spine lumbosacral 2/3 views XR LUMBAR GENERAL 3V AP/LAT/L5-S1 Radiology Routine Pain of left lower extremity H/O: encephalitis Demyelinating disease of central nervous system (HCC) 1 Occurrences starting 05/16/2022 until 06/15/2023 [facility] Work Phone: Comment on above: 1 Occurrences starting 05/16/2022 until 06/15/2023 Sodium [Moles/time] in 24 hour Urine SODIUM 24 HR URINE Lab Routine Bilateral kidney stones Ordered: 11/20/2023 [facility] Comment on above: Ordered: 11/20/2023 STONE PANEL URINE STONE PANEL UR INE Lab Routine Bilateral kidney stones Ordered: 11/20/2023 [facility] Work Phone: Comment on above: Ordered: 11/20/2023 Urate [Mass/time] in 24 hour Urine URIC ACID 24 HR UR Lab Routine Bilateral kidney stones Ordered: 11/20/2023 [facility] Comment on above: Ordered: 11/20/2023 URINALYSIS, REFLEX MICROSCOPIC U RINALYSIS, REFLEX MICROSCOPIC Lab Routine Screening for genitourinary condition Ordered: 10/19/2023 [facility] Work Phone: Comment on above: Ordered: 10/19/2023 End: 09-02-2024 US Kidney - bilateral and Urinary bladder US KIDNEY/BLADDER Radiology Routine Bilateral kidney stones 1 Occurrences starting 08/04/2023 until 09/02/2024 [facility] Work Phone: Comment on above: 1 Occurrences starting 08/04/2023 until 09/02/2024 End: 06-01-2023 XR FEMUR GENERAL 2V AP/LAT LEFT XR FEMUR GENERAL 2V AP/LAT LEFT Radiology Routine Pain of left lower extremity 1 Occurrences starting 05/02/2022 until 06/01/2023 [facility] Work Phone: Comment on above: 1 Occurrences starting 05/02/2022 until 06/01/2023 [facility] ANGIO HB6 [facility] Immunizations Immunization Date Immunization Notes Care Provider Fa cility 02-27-2020 meningococcal B vacc ine, recombinant, OMV, adjuvanted Kentrell Smith MD Work Phone: [facility] Work Phone: 01-19-2020 meningococcal B vacc ine, recombinant, OMV, adjuvanted Kentrell Smith MD Work Phone: [facility] Work Phone: 12-29-2018 Human Papillomavirus 9-valent vaccine Kentrell Smith MD Work Phone: [facility] Work Phone: 12-29-2018 meningococcal oligosaccharide (groups A, C, Y and W-135) diphtheria toxoid conjugate vaccine (MCV4O) Kentrell Smith MD Work Phone: [facility] Work Phone: 06-12-2016 Human Papillomavirus 9-valent vaccine Kentrell Smith MD Work Phone: [facility] Work Phone: 01-24-2016 influenza, injectable,quadrivalent, preservative free, pediatric Kentrell Smith MD Work Phone: [facility] Work Phone: 01-24-2016 influenza virus vacc ine, unspecified formulation Peds 18 [facility] 12-21-2015 Human Papillomavirus 9-valent vaccine Kentrell Smith MD Work Phone: [facility] Work Phone: 12-21-2015 meningococcal polysaccharide (groups A, C, Y and W-135) diphtheria toxoid conjugate vaccine (MCV4P) Kentrell Smith MD Work Phone: [facility] Work Phone: 12-21-2015 tetanus toxoid, redu berenice diphtheria toxoid, and acellular pertussis vaccine, adsorbed Kentrell Smith MD Work Phone: [facility] Work Phone: 04-11-2014 influenza, seasonal, injectable Kentrell Smith MD Work Phone: [facility] Work Phone: 06-08-2013 influenza, injectabl e, quadrivalent, preservative free Kentrell Smith MD Work Phone: [facility] Work Phone: 02-25-2012 influenza virus vacc ine, live, attenuated, for intranasal use Kentrell Smith MD Work Phone: [facility] Work Phone: 08-13-2011 influenza virus vacc ine, live, attenuated, for intranasal use Kentrell Smith MD Work Phone: [facility] Work Phone: 03-04-2010 influenza virus vacc ine, whole virus Kentrell Smith MD Work Phone: [facility] Work Phone: 06-14-2009 novel influenza-H1N1 -09, preservative-free, injectable Kentrell Smith MD Work Phone: [facility] Work Phone: 02-12-2009 influenza, seasonal, injectable Kentrell Smith MD Work Phone: [facility] Work Phone: 02-11-2008 influenza, seasonal, injectable Kentrell Smith MD Work Phone: [facility] Work Phone: 12-23-2007 diphtheria, tetanus toxoids and acellular pertussis vaccine Kentrell Smith MD Work Phone: [facility] Work Phone: 12-23-2007 measles, mumps and rubella virus vaccine Kentrell Smith MD Work Phone: [facility] Work Phone: 12-23-2007 poliovirus vaccine, inactivated Kentrell Smith MD Work Phone: [facility] Work Phone: 12-23-2007 varicella virus vaccine Kentrell Smith MD Work Phone: [facility] Work Phone: 07-30-2007 hepatitis A vaccine, pediatric/adolescent dosage, 2 dose schedule Kentrell Smith MD Work Phone: [facility] Work Phone: 03-31-2007 influenza virus vacc ine, whole virus Kentrell Smith MD Work Phone: [facility] Work Phone: 10-21-2006 hepatitis A vaccine, pediatric/adolescent dosage, 2 dose schedule Kentrell Smith MD Work Phone: [facility] Work Phone: 09-27-2005 pneumococcal polysaccharide vaccine, 23 valent Kentrell Smith MD Work Phone: [facility] Work Phone: 09-27-2005 varicella virus vaccine Kentrell Smith MD Work Phone: [facility] Work Phone: 06-26-2005 pneumococcal conjuga te vaccine, 7 valent Kentrell Smith MD Work Phone: [facility] Work Phone: 06-26-2005 pneumococcal polysaccharide vaccine, 23 valent Kentrell Smith MD Work Phone: [facility] Work Phone: 04-03-2005 influenza, seasonal, injectable Kentrell Smith MD Work Phone: [facility] Work Phone: 03-13-2005 diphtheria, tetanus toxoids and acellular pertussis vaccine Kentrell Smith MD Work Phone: [facility] Work Phone: 09-27-2004 haemophilus influenz ae type b vaccine, HbOC conjugate Kentrell Smith MD Work Phone: [facility] Work Phone: 09-27-2004 measles, mumps and rubella virus vaccine Kentrell Smith MD Work Phone: [facility] Work Phone: 09-27-2004 pneumococcal conjuga te vaccine, 7 valent Kentrell Smith MD Work Phone: [facility] Work Phone: 09-27-2004 varicella virus vaccine Kentrell Smith MD Work Phone: [facility] Work Phone: 07-11-2004 pneumococcal conjuga te vaccine, 7 valent Kentrell Smith MD Work Phone: [facility] Work Phone: 03-27-2004 diphtheria, tetanus toxoids and acellular pertussis vaccine Kentrell Smith MD Work Phone: [facility] Work Phone: 03-27-2004 haemophilus influenz ae type b vaccine, HbOC conjugate Kentrell Smith MD Work Phone: [facility] Work Phone: 03-27-2004 hepatitis B vaccine, pediatric or pediatric/adolescent dosage Kentrell Smith MD Work Phone: [facility] Work Phone: 03-27-2004 influenza virus vacc ine, whole virus Kentrell Smith MD Work Phone: [facility] Work Phone: 03-27-2004 pneumococcal conjuga te vaccine, 7 valent Kentrell Smith MD Work Phone: [facility] Work Phone: 03-27-2004 pneumococcal polysaccharide vaccine, 23 valent Kentrell Smith MD Work Phone: [facility] Work Phone: 03-27-2004 poliovirus vaccine, inactivated Kentrell Smith MD Work Phone: [facility] Work Phone: 01-26-2004 diphtheria, tetanus toxoids and acellular pertussis vaccine Kentrell Smith MD Work Phone: [facility] Work Phone: 01-26-2004 haemophilus influenz ae type b vaccine, HbOC conjugate Kentrell Smith MD Work Phone: [facility] Work Phone: 01-26-2004 hepatitis B vaccine, pediatric or pediatric/adolescent dosage Kentrell Smith MD Work Phone: [facility] Work Phone: 01-26-2004 pneumococcal conjuga te vaccine, 7 valent Kentrell Smith MD Work Phone: [facility] Work Phone: 01-26-2004 poliovirus vaccine, inactivated Kentrell Smith MD Work Phone: [facility] Work Phone: 2003 diphtheria, tetanus toxoids and acellular pertussis vaccine Kentrell Smith MD Work Phone: [facility] Work Phone: 2003 haemophilus influenz ae type b vaccine, HbOC conjugate Kentrell Smith MD Work Phone: [facility] Work Phone: 2003 pneumococcal conjuga te vaccine, 7 valent Kentrell Smith MD Work Phone: [facility] Work Phone: 2003 pneumococcal polysaccharide vaccine, 23 valent Kentrell Smith MD Work Phone: [facility] Work Phone: 2003 poliovirus vaccine, inactivated Kentrell Smith MD Work Phone: [facility] Work Phone: 2003 hepatitis B vaccine, pediatric or pediatric/adolescent dosage Kentrell Smith MD Work Phone: [facility] Work Phone: Payers Date Payer Category Payer Medicaid [id number] 2020 Medicaid [employer] MEDICA[employer] [id number] 2020-[facility] [phone] [place] [id number] Medicaid [id number] 2020 Medicaid [id number] 2017 Medicaid MEDICAID [facility] WITH [id number] 2017-Present [phone] [address] [place] [address] Medicaid [id number] 2003 Unknown [id number] 2003 Unknown [id number] 2003 Unknown [id number] 2003 Unknown [id number] 2003 Unknown [id number] 2003 Unknown [id number] 2003 Unknown [id number] Social History Date Type Detail Facility Start: 08-14-2017 End: 11-07-2022 Tobacco smoking status VTIS Never smoked tobacco [facility] Start: 04-01-2021 End: 11-08-2023 Alcohol intake Not Asked [facility] Start: 2003 Sex Assigned At Not on file C [facility] Start: 09-23-2021 End: 02-26-2022 Exposure to SARS-CoV-2 (event) Not sure [facility] Start: 08-14-2017 End: 11-07-2022 Tobacco use and exposure Smokeless tobacco non-user [facility] Start: 04-01-2020 End: 06-21-2022 History of Social function [facility] Start: 04-01-2020 End: 06-21-2022 Tobacco use panel [facility] Adult Depression Screening Assessment 1 [facility] NEGATED: Highlighted rowStart: ESVINF History of tobacco use Passive smoker [facility] Medical Equipment Procedure Code Equipment Code Equipment Original Text Equipment Identifier Dates [place] 25mm - [id number] Start: 02-05-2018 [place] 35mm - [id number] Start: 02-05-2018 [place] 25mm - [id number] Start: 02-05-2018 Depth Electrode Contact 16 4.4 - [id number] Start: 02-05-2018 Depth Electrode Contact 16 3.5 - [id number] Start: 02-05-2018 Depth Electrode Contact 14 - [id number] Start: 02-05-2018 Depth Electrode Contact 14 - [id number] Start: 02-05-2018 Depth Electrode Contact 10 - [id number] Start: 02-05-2018 Depth Electrode Contact 14 - [id number] Start: 02-05-2018 Depth Electrode Contact 10 - [id number] Start: 02-05-2018 Electrode .8mm 6 1.5mm Eeg 16 Contact Removable Stylet Nonmagnetic - [id number] Start: 02-05-2018 Depth Electrode Contact 16 3.5 - [id number] Start: 02-05-2018 Depth Electrode Contact 16 3.5 - [id number] Start: 02-05-2018 Depth Electrode Contact 14 - [id number] Start: 02-05-2018 Depth Electrode Contact 10 - [id number] Start: 02-05-2018 Depth Electrode Contact 10 - [id number] Start: 02-05-2018 Electrode .8mm 6 1.5mm Eeg 16 Contact Removable Stylet Nonmagnetic - [id number] Start: 02-05-2018 Depth Electrode Contact 16 3.5 - [id number] Start: 02-05-2018 Cover 10mm Mediu m Titanium Albina Hole Low Profile Tab 1.5mm Screws - [id number] Start: 05-26-2018 Screw 1.5mm 4mm Bone Self Drill Cross Pin Craniomaxillofacial - [id number] Start: 05-26-2018 Stent Inlay Opti ma 6fr Taper [place] [employer] Phreecoat 26cm Ureteral - [id number] Start: 07-08-2023 Stent Inlay Opti ma 6fr Taper [place] [employer] Phreecoat 26cm Ureteral - [id number] Start: 07-08-2023 Clinical Notes 02-12-2018 to 11-20-2023 Telephone Encounter - Dixie Beverly RN - 11/20/2023 3:10 PM EDTTelephone Encounter - Dixie Beverly RN - 11/20/2023 3:10 PM EDZohaib Trejo LSW - 11/12/2023 3:41 PM EDTPatient Instructions Note Date & Type Note Facility 11-20-2023 Telephone encounter Note Pended stone panel urine to be signed. Dixie Beverly RN November 20, 2023 3:10 PM ----- [facility] at 11/20/2023 2:55 PM EDT ----- Regardinhr Urine Test Contact: Pt tried to complete the test through [employer], however it was not received in time for test to be accepted. Pt would need to repeat the test. However pt's mom stated it will probably be received late again from [employer] due to be told it would take a week to get there. They would now like to have the 24hr urine test completed through [facility]. Please advise once order has been placed. Thanks [facility] 11-20-2023 Miscellaneous Notes Pended stone panel urine to be signed. Dixie Beverly RN November 20, 2023 3:10 PM ----- Message from Bruce [facility] sent at 11/20/2023 2:55 PM EDT ----- Regardinhr Urine Test Contact: Pt tried to complete the test through [employer], however it was not received in time for test to be accepted. Pt would need to repeat the test. However pt's mom stated it will probably be received late again from [employer] due to be told it would take a week to get there. They would now like to have the 24hr urine test completed through [facility]. Please advise once order has been placed. Thanks documented in this encounter [facility] 11-19-2023 Miscellaneous Notes Spoke to mom and reviewed that FMLA by Dr. Haider covers his epilepsy appointments only. She would need to get FMLA form for other providers. She also discussed sick days for Sara and his sister. Addressed again that sister is no longer under Dr. Haider's care. Sick appointments need to be addressed by PCP. She verbalized understanding. Message sent to Aircraft Maintenance Engineer with Dr. Roper for follow up. Funmilayo Silva, RN Via regulatory scientist, Called Ms. Garcia, did not receive answer. Message left, will await call-back. Funmilayo Silva RN Via regulatory scientist, Called Ms. Garcia, did not receive answer. Message left, will await call-back. Funmilayo Silva RN Hi, I am an outpatient medical social consultant at the Clinic. I received a consult from Dr Roper as patient's mother, Paulina, had questions regarding FMLA forms that were completed in July 2023. When reviewing the chart, I saw you potentially were assisting with the forms. I spoke with the patient's mother and she was inquiring about what documentation was put on the completed FMLA forms as she reports she is having some difficulty with her work when she misses work for his appt. I encouraged her to speak with her HR dept at her workplace but she was still inquiring if anyone was able to explain to her what documentation was put on the completed forms. I was unable to assist Paulina as I did not assist with completing the forms and do not see any forms scanned in. Are you able to reach out to Paulina and assist her with her questions regarding the completed FMLA forms? Any insight/help is appreciated. Thank you! Via regulatory scientist, Called Ms. Garcia, did not receive answer. Message left, will await call-back. Funmilayo Silva RN documented in this encounter [facility] 11-19-2023 Telephone encounter Note Spoke to mom and reviewed that FMLA by Dr. Haider covers his epilepsy appointments only. She would need to get FMLA form for other providers. She also discussed sick days for Sara and his sister. Addressed again that sister is no longer under Dr. Haider's care. Sick appointments need to be addressed by PCP. She verbalized understanding. Message sent to Aircraft Maintenance Engineer with Dr. Roper for follow up. Funmilayo Silva RN [facility] 11-18-2023 Telephone encounter Note Via regulatory scientist, Called Ms. Garcia, did not receive answer. Message left, will await call-back. Funmilayo Silav RN [facility] 11-16-2023 Telephone encounter Note Via regulatory scientist, Called Ms. Garcia, did not receive answer. Message left, will await call-back. Funmilayo Silva RN T [facility] 11-12-2023 Note HNO ID: [id number] Author: ZOHAIB SERRANO LSW Service: ? Author Type: Aircraft Maintenance Engineer Type: Progress Notes Filed: 11/12/2023 15:43 Note Text: Primary Care Social Work Provider Action / FYI PCP Action None Date of Service: 11/12/2023 Patient identified by name and date of : N/A Referral Source: Referral Patient Outreach: Follow Up Mode of Outreach: N/A Response Time: same day Narrative: Return EPIC chat received from Funmilayo Silva RN, whom confirms she will reach out to patient's mother, Paulina, to assist with any questions regarding completed FMLA forms. Interventions: Stakeholder collaboration CLAUDINE Ulloa November 12, 2023 3:42 PM [facility] 11-12-2023 History of Present illness Narrative Primary Care Social Work Provider Action / FYI PCP Action None Date of Service: 11/12/2023 Patient identified by name and date of : N/A Referral Source: Referral Patient Outreach: Follow Up Mode of Outreach: N/A Response Time: same day Narrative: Return EPIC chat received from Funmilayo Silva RN, whom confirms she will reach out to patient's mother, Paulina, to assist with any questions regarding completed FMLA forms. Interventions: Stakeholder collaboration CLAUDINE Ulloa November 12, 2023 3:42 PM Primary Care Social Work Provider Action / FYI PCP Action None Date of Service: 11/12/2023 Patient identified by name and date of : Yes- via Telephone Referral Source: Referral Patient Outreach: Initial Mode of Outreach: Phone Call Response Time: Contact made Patient Identified Needs: Questions regarding FMLA forms Assessment Social supports Patient functional ability Cognitive status Existing community support PCSW Action Taken Direct patient connection to resource Provide Patient Resources Education Is the patient ready for discharge? Yes Social Barrier resolution or patient discharge reason: Patient self-managing with resources given Narrative: Return call received from patient's mother, Paulina. Paulina requesting regulatory scientist services. This worker contact [employer] to assist with conversation. Introduced self and explained role. Patient's mother was agreeable to speaking with this worker. Patient's mother, Paulina, requesting information on FMLA forms that Dr. Haider and office assisted in completing in July of 2023. Paulina requesting to know what was put on the forms. This worker explained that I did not assist/was not involved with the completion of the FMLA forms so I am unsure what the completed forms stated. Paulina reports she has been having difficulty with her work if patient is sick or has to go to an ER but reports if pt has a scheduled appt regarding his medical conditions her work does not question, therefore she is inquiring how the forms were completed/what the forms stated. This worker inquired if she has spoken to her Human Resource Department at her employer, Paulina reports she has not. This worker encouraged Paulina to speak to her Human Resources dept at work to inquire about her employers FMLA policy. Per review of chart, Funmilayo Silva RN received FMLA forms and forwarded to Dr Haider and then forwarded to email on file. This worker offered to send a message to RN, Funmilayo Silva, to inquire if she is able to provide her with more information regarding the completed FMLA forms. Paulina agreeable and thankful. Paulina denied any additional questions or concerns at this time. Message sent to Funmilayo Silva RN regarding above to inquire if she is able to contact patient to assist with answering her questions regarding completed FMLA forms. No further PCSW intervention identified. Current SW intervention completed. Interventions: [facility] Empowering/Coaching Goal Setting Stakeholder collaboration CLAUDINE Ulloa November 12, 2023 3:23 PM documented in this encounter [facility] 11-12-2023 Telephone encounter Note Hi, I am an outpatient medical social consultant at the Clinic. I received a consult from Dr Roper as patient's mother, Paulina, had questions regarding FMLA forms that were completed in July 2023. When reviewing the chart, I saw you potentially were assisting with the forms. I spoke with the patient's mother and she was inquiring about what documentation was put on the completed FMLA forms as she reports she is having some difficulty with her work when she misses work for his appt. I encouraged her to speak with her HR dept at her workplace but she was still inquiring if anyone was able to explain to her what documentation was put on the completed forms. I was unable to assist Paulina as I did not assist with completing the forms and do not see any forms scanned in. Are you able to reach out to aPulina and assist her with her questions regarding the completed FMLA forms? Any insight/help is appreciated. Thank you! Via regulatory scientist, Called Ms. Garcia, did not receive answer. Message left, will await call-back. Funmilayo Silva RN [facility] 11-12-2023 Note HNO ID: [id number] Author: ZOHAIB SERRANO LSW Service: ? Author Type: Aircraft Maintenance Engineer Type: Progress Notes Filed: 11/12/2023 15:31 Note Text: Primary Care Social Work Provider Action / FYI PCP Action None Date of Service: 11/12/2023 Patient identified by name and date of : Yes- via Telephone Referral Source: Referral Patient Outreach: Initial Mode of Outreach: Phone Call Response Time: Contact made Patient Identified Needs: Questions regarding FMLA forms Assessment Social supports Patient functional ability Cognitive status Existing community support PCSW Action Taken Direct patient connection to resource Provide Patient Resources Education Is the patient ready for discharge? Yes Social Barrier resolution or patient discharge reason: Patient self-managing with resources given Narrative: Return call received from patient's mother, Paulina. Paulina requesting regulatory scientist services. This worker contact [employer] to assist with conversation. Introduced self and explained role. Patient's mother was agreeable to speaking with this worker. Patient's mother, Paulina, requesting information on FMLA forms that Dr. Haider and office assisted in completing in July of 2023. Paulina requesting to know what was put on the forms. This worker explained that I did not assist/was not involved with the completion of the FMLA forms so I am unsure what the completed forms stated. Paulina reports she has been having difficulty with her work if patient is sick or has to go to an ER but reports if pt has a scheduled appt regarding his medical conditions her work does not question, therefore she is inquiring how the forms were completed/what the forms stated. This worker inquired if she has spoken to her Human Resource Department at her employer, Paulina reports she has not. This worker encouraged Paulina to speak to her Human Resources dept at work to inquire about her employers FMLA policy. Per review of chart, Funmilayo Silva RN received FMLA forms and forwarded to Dr Haider and then forwarded to email on file. This worker offered to send a message to RN, Funmilayo Silva, to inquire if she is able to provide her with more information regarding the completed FMLA forms. Paulina agreeable and thankful. Paulina denied any additional questions or concerns at this time. Message sent to Funmilayo Silva RN regarding above to inquire if she is able to contact patient to assist with answering her questions regarding completed FMLA forms. No further PCSW intervention identified. Current intervention completed. Interventions: Advocacy Assessment Discharge from PCSW panel Education Empowering/Coaching Goal Setting Stakeholder collaboration CLAUDINE Ulloa November 12, 2023 3:23 PM [facility] 11-12-2023 Note HNO ID: [id number] Author: ZOHAIB SERRANO LSW Service: ? Author Type: Aircraft Maintenance Engineer Type: Progress Notes Filed: 11/12/2023 14:28 Note Text: Primary Care Social Work Provider Action / FYI PCP Action None Date of Service: 11/12/2023 Patient identified by name and date of : Yes- via Telephone Referral Source: Referral Patient Outreach: Initial Mode of Outreach: Phone Call Response Time: Unable to reach (2nd Attempt) Left message by: Voicemail Social Service order received. Chart reviewed. Call placed to patient's mother, Paulina Garcia, no answer, Voicemail left with this worker's contact information included in VM. CLAUDINE Ulloa November 12, 2023 2:27 PM [facility] 11-12-2023 History of Present illness Narrative Primary Care Social Work Provider Action / FYI PCP Action None Date of Service: 11/12/2023 Patient identified by name and date of : Yes- via Telephone Referral Source: Referral Patient Outreach: Initial Mode of Outreach: Phone Call Response Time: Unable to reach (2nd Attempt) Left message by: Voicemail Social Service order received. Chart reviewed. Call placed to patient's mother, Paulina Garcia, no answer, Voicemail left with this worker's contact information included in VM. CLAUDINE Ulloa November 12, 2023 2:27 PM documented in this encounter [facility] 11-11-2023 Note HNO ID: [id number] Author: ZOHAIB SERRANO LSW Service: ? Author Type: Aircraft Maintenance Engineer Type: Progress Notes Filed: 11/11/2023 10:31 Note Text: Primary Care Social Work Provider Action / FYI PCP Action None Date of Service: 11/11/2023 Patient identified by name and date of : No Referral Source: Referral Patient Outreach: Initial Mode of Outreach: Phone Call Response Time: Unable to reach (1st Attempt) Left message by: Voicemail Call placed to patient's mother, Paulina Garcia, with assistance of [employer], per order request. No answer, voicemail left with this worker's contact information included in VMM. CLAUDINE Ulloa November 11, 2023 10:30 AM [facility] 11-11-2023 History of Present illness Narrative Primary Care Social Work Provider Action / FYI PCP Action None Date of Service: 11/11/2023 Patient identified by name and date of : No Referral Source: Referral Patient Outreach: Initial Mode of Outreach: Phone Call Response Time: Unable to reach (1st Attempt) Left message by: Voicemail Call placed to patient's mother, Paulina Garcia, with assistance of [employer], per order request. No answer, voicemail left with this worker's contact information included in VMM. CLAUDINE Ulloa November 11, 2023 10:30 AM documented in this encounter [facility] 11-06-2023 Note HNO ID: [id number] Author: MICHAEL ROPER MD Service: ? 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 No infections. Repeat serum titer level came back <1:10. Tremor has improved, likely was due to side effect of ASM. They are looking into school programs for Sara. He is currently working, no problems with his job. Visit 05/08/2023: Repeat serum NMDA-R antibodies decreased from 1:160 to 1:20. Saw Cardiology, no concerns. 3 weeks ago had flu-like symptoms, everyone at home was sick. Still has some cough. Family doctor thought he might have some residual bronchitis which they are monitoring. Not interested in getting COVID booster or flu shots despite my strong recommendation since he is on rituximab. Takes guanfacine in morning to help with his mood per Dr. Vaz. Started working but lost job because he was ill. Trying to find a different job. Will message my nurse to make sure next infusion gets scheduled for June 2023. Needs copy of neuropsych testing, will message Dr. Palomino. R>L UE tremor still present, occasionally drops things, although better after they had weaned down the Oxtellar. Discussed propanolol trial but they do not want to add more meds at this time. They are interested in OT. No other concerns. Visit 11/07/2022: Patient presents in person today, accompanied by Dad. This is a follow up visit with me. Continues on rituximab, no issues. No concern for relapse. Everything is going well. More alert, responsive today. Not as much mood swings, no more fighting. Follows with Dr. Vaz. Reports a couple weeks ago patient was running, then became really short of breath, which then resolved. Has not recurred since. Reminded still needs to follow up with outside Drug Inspector for prior abnormal EKG. Dad now says prefers to have referral to [facility] Cardiology so I have ordered this. Leg pain has completely resolved. Completed all therapies, no ongoing concerns. Graduated high school and will be going to trade school. Will also continue receiving speech therapy through the school. Tremors have improved with weaning down Oxtellar and increasing Topamax per [facility]psy team. Has had a few seizures likely due to missed meds. Has not scheduled with primary care doctor. Reminded Dad to schedule. No other new or worsening neurological concerns. 06/18/2022 Visit: Patient appears virtually with Dad. Per Dad, Sara last week got very angry and was fighting with sister. Dad tried to calm him down and he started fighting with Dad. Took a while to calm down, then got a panic attack where was breathing really fast and was squeezing a ball to help. Also was more sleepy at school and this has been happening more frequently. Maybe 3 weeks ago he had a flu-like illness. No viral testing was done at that time. No other new or worsening neurologic symptoms reported. Sara seen briefly on video today, appears calm. 05/02/2022 Visit: Patient presents in person today, accompanied by Dad. Next 6-month rituximab infusion scheduled for 07/21/2022 in [facility]. Received his 2 induction doses in Dec 2021 without incident. Doing well overall. No other new or worsening neurological concerns noted. No suggestion of relapse. No recent infections. Having some trouble with hands and notes when trying to lift spoons his hands can shake. Dad concerned could be related to seizure meds, plans to follow up with Dr. Gibbs. Total vitamin D level in target range at 50. Complaining of occasional pain in L posterior leg region behind knee, advised will order ultrasound and x-ray and refer to Ortho. No weakness or neuropathic features. Also advised needs to establish with primary care doctor, Dad requesting a referral. Creatinine a bit elevated, BP ok, last platelet count 126.advised to follow up with primary care for this. Possible also related to anti-seizure meds as rituximab does not typically result in these abnormalities. Doing physical therapy once per week at [facility]. Unable to see any of outside cushion worker's results in chart. Advised needs to follow up with Cardiology given their following note at last visit: Patient with history of NMDA receptor antibody, recurrent epilepsy. Here to establish care. No cardiac symptoms or previous cardiac issues apart from abnormal EKG showing sinus rhythm with possible LVH. Vitals stable. Given associated between MD or septal and item number dysfunction with reported history of dysrhythmias, recommend obtaining echocardiogram for baseline cardiac function and morphology. Also obtain one-week event monitor to screen for any possible under noticed arrhythmias. Had repeat neuropsy (more content not included)... 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 No infections. Repeat serum titer level came back <1:10. Tremor has improved, likely was due to side effect of ASM. They are looking into school programs for Sara. He is currently working, no problems with his job. Visit 05/08/2023: Repeat serum NMDA-R antibodies decreased from 1:160 to 1:20. Saw Cardiology, no concerns. 3 weeks ago had flu-like symptoms, everyone at home was sick. Still has some cough. Family doctor thought he might have some residual bronchitis which they are monitoring. Not interested in getting COVID booster or flu shots despite my strong recommendation since he is on rituximab. Takes guanfacine in morning to help with his mood per Dr. Vaz. Started working but lost job because he was ill. Trying to find a different job. Will message my nurse to make sure next infusion gets scheduled for June 2023. Needs copy of neuropsych testing, will message Dr. Palomino. R>L UE tremor still present, occasionally drops things, although better after they had weaned down the Oxtellar. Discussed propanolol trial but they do not want to add more meds at this time. They are interested in OT. No other concerns. Visit 11/07/2022: Patient presents in person today, accompanied by Dad. This is a follow up visit with me. Continues on rituximab, no issues. No concern for relapse. Everything is going well. More alert, responsive today. Not as much mood swings, no more fighting. Follows with Dr. Vaz. Reports a couple weeks ago patient was running, then became really short of breath, which then resolved. Has not recurred since. Reminded still needs to follow up with outside Drug Inspector for prior abnormal EKG. Dad now says prefers to have referral to [facility] Cardiology so I have ordered this. Leg pain has completely resolved. Completed all therapies, no ongoing concerns. Graduated high school and will be going to trade school. Will also continue receiving speech therapy through the school. Tremors have improved with weaning down Oxtellar and increasing Topamax per [facility] Epilepsy team. Has had a few seizures likely due to missed meds. Has not scheduled with primary care doctor. Reminded Dad to schedule. No other new or worsening neurological concerns. 06/18/2022 Visit: Patient appears virtually with Dad. Per Dad, Sara last week got very angry and was fighting with sister. Dad tried to calm him down and he started fighting with Dad. Took a while to calm down, then got a panic attack where was breathing really fast and was squeezing a ball to help. Also was more sleepy at school and this has been happening more frequently. Maybe 3 weeks ago he had a flu-like illness. No viral testing was done at that time. No other new or worsening neurologic symptoms reported. Sara seen briefly on video today, appears calm. 05/02/2022 Visit: Patient presents in person today, accompanied by Dad. Next 6-month rituximab infusion scheduled for 07/21/2022 in [facility]. Received his 2 induction doses in Dec 2021 without incident. Doing well overall. No other new or worsening neurological concerns noted. No suggestion of relapse. No recent infections. Having some trouble with hands and notes when trying to lift spoons his hands can shake. Dad concerned could be related to seizure meds, plans to follow up with Dr. Gibbs. Total vitamin D level in target range at 50. Complaining of occasional pain in L posterior leg region behind knee, advised will order ultrasound and x-ray and refer to Ortho. No weakness or neuropathic features. Also advised needs to establish with primary care doctor, Dad requesting a referral. Creatinine a bit elevated, BP ok, last platelet count 126.advised to follow up with primary care for this. Possible also related to anti-seizure meds as rituximab does not typically result in these abnormalities. Doing physical therapy once per week at [facility]. Unable to see any of outside cushion worker's results in chart. Advised needs to follow up with Cardiology given their following note at last visit: Patient with history of NMDA receptor antibody, recurrent epilepsy. Here to establish care. No cardiac symptoms or previous cardiac issues apart from abnormal EKG showing sinus rhythm with possible LVH. Vitals stable. Given associated between MD or septal and item number dysfunction with reported history of dysrhythmias, recommend obtaining echocardiogram for baseline cardiac function and morphology. Also obtain one-week event monitor to screen for any possible under noticed arrhythmias. Had repeat neuropsychological testing with recommendations. Continues seeing Epilepsy and Psychiatry regularly. 01/27/2022 Visit: Presents in person today, accompanied by Mom. This is a follow up visit with me. During November 2021 admission for increased seizure burden and cognitive/behavioral decline, received steroids, IVIG, PLEX, rituximab as inpatient with improvement. Received Evusheld in hospital. 2nd dose rituximab induction went well, no issues. Discussed with Mom will plan for every 6 month infusions unless clinical worsening occurs. Per Mom, patient doing much better on current treatments, no seizures, abnormal movements, psychotic breaks, or other concerns for relapse since discharge from hospital. Mom concerned about how he will be able to return to school. Will refer for formal neuropsych testing to help guide schooling. Mom now has decision-making guardianship of Sara. Seeing Dr. Gibbs for seizures and Dr. Vaz for behavioral management. Labs overall reassuring. Will plan to repeat serum NMDA level with next set of pre-ritux labs in about 6 months. MRI brain, whole body PET MRI were stable. Will need COVID vaccines and flu shot in 3-5 months. No other new or worsening neuro symptoms reported. 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 Developed prominent cognitive delays and behavioral problems. 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 He was initially evalauted by Dr. Anna Joyce at that time. Per her report, Sara was a previously healthy child with normal neurologic development until 09/20/05. Around that time, he developed spasms of the left thigh with associated left hip pain and frequent falls. On 10/18/05 he developed paroxysmal events concerning for seizures -- described as 15 minute episodes of upward eye-roll, increased ross-motor secretions, generalized tonic movements and dystonic posturing of the right hand, with post-ictal sleepiness for several days. On he had a 60-90 minute episode of unresponsiveness and GTC seizure. He was intubated, loaded with Fosphenytoin, and initiated on fosphenytoin and VPA maintenance. Reportedly he had a low grade fever of 100.4 at that time. Subsequently he developed abnormal movements described as writhing choreiform and hyperkinetic movements in all extremities while awake, increased with agitation and disappearing with sleep. He also devleoped encephalopathy and behavior dysregulation. MRI Brain on 10/2005 showed increased T2 signal in the mesial L frontotemporal region, anterior L insular cortex, and anterior/inferior frontal lobe pepe matter bilaterally. He was monitored on EEG, with choreform movements as described above captured on EEG, with no clear epileptiform discharges on EEG. Although notably, these movements were more consistent with dyskinesia than seizure activity. His background EEG revealed diffuse continuous slowing consistent with moderate encephalopathy. During his hospitalization he was easily agitated, requiring PRN ativan. A description of his movements were recounted by pediatric neurologist Dr. 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 Orolingual dyskinesia much better. EEG performed 10/2006 eventually captured seizures, with interictal showing multiregional left and right frontal, left and right temporal sharp waves. He had a protracted and difficult recovery but managed to recover well on VPA monotherapy, with ~ 1-2 seizures per year since 2006. He was evaluated again by Dr. Joyce in 2012, with reports of increased axial spasms described as axial tonic, head drop and stiffening of the extremities ocurring in clusters. He was started on guanfacine in 2012 with improvement in behavioral agitation. He continued to struggle with cognitive development, requiring an IEP with a 1:1 aid at school and requiring speech, occupational and physical therapy. EEG in 2012 was normal. In August 2015 he was admitted to PMU for nocturnal spells - awakens, cries out, jerking of right hand and foot, occasional full body turn, with frequent enuresis. He reported nightmares of zombies telling him to eat mommy's brain . These were captured during admission and consistent with nocturnal hypermotor seizures. - PET showed bitemporal hypometabolism, asymmetric L orbitofrontal hypometabolism, L anterior superior and basal posterior temporal region. - Ictal SPECT revealed hyperperfusion in th bilateral medial parietal-occipital region. - MRI Brain did not reveal a clear malformation of cortical development. - TIARA showed suspicious sharply contoured discharges over the bilateral parietal and frontal sensors with EEG correlates He underwent sEEG monitoring on 01/2018 with the below results: Interictal: 1 Poly Spikes, Focal Right pre-SMA, right SFG, Right SMA, right and left operculum 2 Poly Spikes, Focal Right pre-SMA and Right SFG 3 Baldomeor, Focal Right and left SMA, Left Pre-SMA Ictal: 1 EEG: EEG Seizure, Focal Right Pre-SMA>bilateral SMA, pre-central gyrus, frontal operculum and mid cingulate Seizure: Axial Tonic Seizure -> Generalized Hypermotor Seizure He ultimately underwent craniotomy on 05/26/2018 with R superior frontal gyrus excision. 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 Importantly, in 2015, his sister who was 2.5 years old at that time, was diagnosed with NMDA receptor encephalitis. Per mom, her clinical picture was very similar to Sara's at that age, with behavioral agitation (crying, screaming), dyskinetic movements and new onset seizure activity. She was treated at [facility] by rheumatology, and apparently required intubation and sedation. She received first line immunotherapy as well as Rituximab and Cellcept. He was initially admitted to the PMU on 11/01/2021 for breakthrough seizure activity. He presented to the ED with a 6 minute long seizure at home with left hand shaking followed by generalized convulsion. Notably in the ED, he was very agitated, demonstrating aggression towards ER staff. He was monitored for several days in the PMU where his Oxtellar XR was increased to 2100 mg qhs, and he was continued on TPM ER 800 mg qhs, and Xcopri 25 qhs, with remission of seizure activity. During this admission he underwent an LP due to ongoing concern for AE. CSF revealed pleocytosis (TNC 6), 1 RBC, 33 protein and 65 glucose. IgG index was mildly elevated at 0.62, and OCBs were not present in the CSF. ENS-2 & ENC-2 revealed + NMDA-R antibody with an immunofluorescence titer of 1:32. He has never received immunosuppressive therapy. He was then readmitted to the PMU in mid-November 2021 in the setting of increasing behavioral disturbance at home. Mom states his agitation and agression has been worse since June 2021. Now over the past few weeks, he has been increasingly confused and agitated at home, with decreased sleep, poor appetite,picking and scratching at his skin, and sound sensitivity. Mom relays bizarre behaviors with disorganized thinking. Mom is also concerned about hallucinations, although Sara denies this and she has not witnessed this directly. She is worried about leaving him alone at home, especially with family and pets, given his increasing agitation and unpredictable nature. Per Sara, he endorses that his mood is poor but is unable to give more detail or insight into this. He otherwise feels fine and does not know why he needs to be hospitalized. Notably, he was diagnosed with COVID-19 in both 2019, and August 2021 and was symptomatic with fever and cough, lasting approximately one week. He is not vaccinated against COVID-19. His last seizure was on 11/17 described as sudden unresponsiveness with urinary incontinence, followed by GTC movements > 3 minutes requiring intranasal midazolam with subsequent . No ASM doses missed per mom. He follows with Dr. Vaz and is currently on Prozac as well as Zyprexa PRN for agression. ROS: A comprehensive review of systems was otherwise negative. HISTORY REVIEWED: PAST MEDICAL HISTORY Diagnosis Date Adolescent behavior problems Idre-H-lzlfgy-D-aspartate (NMDA) receptor encephalitis 10/25/2005 Developmental delay Intractable seizure disorder (HCC) 10/25/2005 Low blood pressure Movement disorder 10/25/2005 Syncope Urinary incontinence Vitamin D deficiency PAST SURGICAL HISTORY Procedure Laterality Date CRANIOTOMY PARTIAL/SUBTOTAL HEMISPHERECTOMY Right 05/26/2018 Frontal NEUROSTIM PETR W/ REPROGRAM N/A 02/05/2018 FAMILY HISTORY Problem Relation Age of Onset other (NMDA Encephalitis) Sister Social History Tobacco Use Smoking status: Never Passive exposure: Never Smokeless tobacco: Never Current Outpatient Medications Medication Sig Dispense Refill guanFACINE (TENEX) 1 mg tablet Take 1 tablet by mouth daily at bedtime. 30 tablet 2 OLANZapine orally disintegrating (ZYPREXA ZYDIS) 5 mg disintegrating tablet Take 1 tablet by mouth as needed. 30 tablet 2 perampanel (FYCOMPA) 8 mg tab(s) Take 1 tablet by mouth daily at bedtime for 180 days. 30 tablet 5 docusate sodium (COLACE) 100 mg capsule Take 1 capsule by mouth two times a day. [address] (DEPAKOTE) 250 mg EC tablet Take 1 tablet by mouth daily at 6 pm. daily dose 1000mg in the morning and 1250mg at night 30 tablet 11 Cholecalciferol, Vitamin D3, (VITAMIN D) 25 mcg (1,000 unit) cap Take 2 capsules by mouth once daily. [address] (DEPAKOTE) 500 mg EC tablet Take 2 tablets by mouth two times a day. daily dose 1000mg in the morning and 1250mg at night 120 tablet 11 THERAPEUTIC-M 9 mg iron-400 mcg tablet Take 1 tablet by mouth once daily. 30 tablet 11 diazePAM (VALTOCO) 20 mg/2 spray (10mg/0.1mL x2) nasal spray Use 1 [place] in each nostril as needed for seizures lasting longer than 3 minutes (For seziures > 3 minutes or 3 seizures in 30 minutes.). 4 Each 2 ibuprofen (MOTRIN) 200 mg tablet Take 2 tablets by mouth every 6 hours as needed for Pain or Fever. tamsulosin (FLOMAX) 0.4 mg Take 1 capsule by mouth at bedtime as needed for up to 14 days. Take for stent discomfort 14 capsule 0 No current facility-administered medications for this visit. ALLERGIES Allergen Reactions Bees Anaphylaxis History: No pediatric history on file. PHYSICAL EXAMINATION: Overall unchanged from last exam. GENERAL: well developed, no acute distress, not dysmorphic HEAD: normocephalic EYES: clear, no drainage EARS: normal external ear NOSE: no erythema or exudate OP: no lesions, moist mucous membranes CHEST & LUNGS: no retractions CV: extremities warm and well-perfused GI/: Deferred EXTREMITIES: no tenderness/swelling, no cyanosis, no clubbing and no edema/varicosities SKIN: normal color, texture and turgor. No rashes or neurocutaneous lesions noted. NEUROLOGIC: In general this is a healthy-appearing patient who appears to be the stated age and is in no acute distress. The patient is quiet, slow processing overall but responds appropriately to questions. Visual pryor are full to confrontation and extraocular movements are intact with no nystagmus. Facial strength is full and symmetric. Able to raise arms and legs at least against some resistance when asked, without evidence of focal weakness. No obvious tremor, waxy flexibility, seizures, asterixis, negative myoclonus, fasciculations, rigidity, incoordination, dystonia, dysmetria, or other dyskinesias appreciated during the exam. Responds to tactile stimulation of all distal extremities. Reflexes 2+ and symmetric. Normal gait. No signs of meningismus. Sphincter function reported as normal. IMPRESSION : Sara is a 18 year old male with NMDARE, clinically stable on rituximab. Repeat antibody testing in serum decreased from 1:160 to <1:20. RECOMMENDATIONS: 1) Rituximab infusions every 6 months and safety monitoring per [place] treatment protocol. 2) Continue follow up with Peds Epilepsy and Psychiatry. 3) Strongly advised family to ensure patient stays up-to-date on COVID, flu, any other non-live catch-up vaccinations he needs. This is due to increased risk of infection with rituximab. [place] time to receive any vaccinations is 3-5 months after a rituximab infusion. 4) Will plan to repeat serum NMDA titer periodically to help guide duration of continuing on rituximab. 5) Follow up with me in about 6 months, or sooner as needed. Sincerely, Michael Roper MD Staff Pediatric Neurologist Pediatric MS and Neuroimmunology Specialist [facility] [place] I spent a total of 40 minutes on the date of the service which included preparing to see the patient, [id number] patient care, completing clinical documentation, obtaining and/or reviewing separately obtained history, performing a medically appropriate examination, counseling and educating the patient/caregiver and ordering medications, tests, or procedures. Emergency return precautions, anticipatory guidance, counseling, education, support were provided to the patient/caregiver as appropriate. All questions were answered in full. Patient/caregiver verbalized understanding and agreement regarding the plan of care. documented in this encounter [facility] 10-19-2023 Note Patient Outreach (UR OLMN) SARA PICHARDO ([id number]) 03 [facility] Date Time Provider Department 10/19/23 ЮЛИЯ CORNEJO During your visit today, we recorded the following information about you: Allergies As of Date: 10/19/2023 Noted Allergy Reaction BEES 01/08/2010 10 - Anaphylaxis Date Reviewed: 08/12/2023 Reviewed by: Lidia Jensen, RN - Fully Assessed Visit Diagnosis:Screening for genitourinary condition [Z13.89] Order(s):URINALYSIS, REFLEX MICROSCOPIC [[id number]] Order #: [id number] Prescriptions as of 10/22/2023 - guanFACINE (TENEX) 1 mg tablet Take 1 tablet by mouth daily at bedtime. - OLANZapine orally disintegrating (ZYPREXA ZYDIS) 5 mg disintegrating tablet Take 1 tablet by mouth as needed. - perampanel (FYCOMPA) 8 mg tab(s) Take 1 tablet by mouth daily at bedtime for 180 days. - docusate sodium (COLACE) 100 mg capsule Take 1 capsule by mouth two times a day. - tamsulosin (FLOMAX) 0.4 mg Take 1 capsule by mouth at bedtime as needed for up to 14 days. Take for stent discomfort - divalproex DR (DEPAKOTE) 250 mg EC tablet Take 1 tablet by mouth daily at 6 pm. daily dose 1000mg in the morning and 1250mg at night - Cholecalciferol, Vitamin D3, (VITAMIN D) 25 mcg (1,000 unit) cap Take 2 capsules by mouth once daily. - divalproex DR (DEPAKOTE) 500 mg EC tablet Take 2 tablets by mouth two times a day. daily dose 1000mg in the morning and 1250mg at night - THERAPEUTIC-M 9 mg iron-400 mcg tablet Take 1 tablet by mouth once daily. - diazePAM (VALTOCO) 20 mg/2 spray (10mg/0.1mL x2) nasal spray Use 1 [place] in each nostril as needed for seizures lasting longer than 3 minutes (For seziures > 3 minutes or 3 seizures in 30 minutes.). - ibuprofen (MOTRIN) 200 mg tablet Take 2 tablets by mouth every 6 hours as needed for Pain or Fever. Problem List As Of Date 10/19/2023 Noted Resolved FEEDING PROBLEM [R63.30] 12/11/2005 03/12/2007 CONSTIPATION NOS [K59.00] 03/26/2006 03/12/2007 GASTROSTOMY COMPLICATION NOS [K94.20] 03/26/2006 03/12/2007 ESOPHAGEAL REFLUX [K21.9] 05/07/2006 03/12/2007 Abdominal pain [R10.9] 07/16/2011 02/08/2018 Movement disorder [G25.9] 09/29/2012 06/01/2018 Intermittent explosive disorder [F63.81] 09/25/2014 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*08/28/2015 Intractable epilepsy (HCC) [G40.919] 11/26/2016 06/01/2018 Vcdy-M-uwxcaf-D-aspartate (NMDA) receptor encep*10/27/2005 09/20/2021 Vitamin D deficiency [E55.9] 06/01/2018 Urinary incontinence [R32] 06/01/2018 Syncope [R55] 06/01/2018 Low blood pressure [I95.9] 06/01/2018 Oqha-P-wqjqcp-D-aspartate (NMDA) receptor encep* Developmental delay [R62.50] 01/09/2020 Behavior problem in pediatric patient [R46.89] 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 S/P brain surgery [Z98.890] 02/12/2018 06/01/2018 Epilepsy (HCC) [G40.909] 01/13/2018 S/P craniotomy [Z98.890] 05/26/2018 Cerebral edema (HCC) [G93.6] 05/31/2018 09/20/2021 Physical deconditioning [R53.81] 06/02/2018 09/20/2021 Seizure-like activity (HCC) [R56.9] 02/04/2020 Acne [L70.9] 02/04/2020 ADHD (attention deficit hyperactivity disorder)*02/08/2021 Adjustment disorder with mixed anxiety and depr*02/08/2021 History of encephalitis [Z86.61] 11/01/2021 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 Paras Bowens MD Urology Fellow [facility] Work Phone: 10-06-2023 Miscellaneous Notes Left VM for patient's mother requesting US and Litholink be performed. Paras Bowens MD Urology Fellow documented in this encounter [facility] 09-18-2023 Note HNO ID: [id number] Author: KEREN VAZ MD Service: ? Author Type: Physician Type: Progress Notes Filed: 09/23/2023 17:07 Note Text: CHILD AND ADOLESCENT PSYCHIATRY FOLLOW-UP VISIT Type of visit: virtual visit Patient was present for this visit. Accompanied by: biologic mother Total time for encounter: 30 minutes Confidentiality limitations with virtual visits were reviewed with the patient and guardian, who have consented and accepted the risk verbally prior to proceeding with this encounter. I have communicated my name and active licensure. The patient's identity and physical location were verified at the time of this visit. Either the patient or their legal district representative has been informed of the risks and benefits of -- and alternatives to -- treatment through a remote evaluation and consents to proceed with the evaluation remotely. ASSESSMENT AND PLAN Sara, 17 yo with ADHD, ID, PMH Anti-NMDAR encephalitis, some behavioral problems occasionally, had episodes of rages that at time are not related with specific stressor Diagnoses: (F90.0) ADHD (attention deficit hyperactivity disorder), inattentive type (primary encounter diagnosis) (F41.1) SILVA (generalized anxiety disorder) Orders: Orders Placed This Encounter DISCONTD: OLANZapine orally disintegrating (ZYPREXA ZYDIS) 5 mg disintegrating tablet Sig: Take 1 tablet by mouth as needed. Dispense: 30 tablet Refill: 2 DISCONTD: guanFACINE (TENEX) 1 mg tablet Sig: Take 1 tablet by mouth daily at bedtime. Dispense: 30 tablet Refill: 2 guanFACINE (TENEX) 1 mg tablet Sig: Take 1 tablet by mouth daily at bedtime. Dispense: 30 tablet Refill: 2 OLANZapine orally disintegrating (ZYPREXA ZYDIS) 5 mg disintegrating tablet Sig: Take 1 tablet by mouth as needed. Dispense: 30 tablet Refill: 2 Follow-up: - No follow-ups on file. Family was asked to call for an earlier visit if needed. SUBJECTIVE CC: he is doing better He has been doing ok he likes his job SLeep-- doing ok going to bed around 9pm is taking him around 30 minutes he is able to stay asleep all night Appetite - is ok Mood --better hopeless- no helpless no SI - no HI- no no problems with the medication Sleep: normal, no concerns Stressors and/or changes to social history: No Medication reactions: No Treatment compliance is borderline. The patient is not seeing a therapist. Any collateral information collected outside this interview? No Are there any new updates to patient's medical history? No Psych ROS Review of Systems HISTORY Medications Outpatient medications: Current Outpatient Medications on File Prior to Visit Medication Sig perampanel (FYCOMPA) 8 mg tab(s) Take 1 tablet by mouth daily at bedtime for 180 days. docusate sodium (COLACE) 100 mg capsule Take 1 capsule by mouth two times a day. tamsulosin (FLOMAX) 0.4 mg Take 1 capsule by mouth at bedtime as needed for up to 14 days. Take for stent discomfort divalproex DR (DEPAKOTE) 250 mg EC tablet Take 1 tablet by mouth daily at 6 pm. daily dose 1000mg in the morning and 1250mg at night Cholecalciferol, Vitamin D3, (VITAMIN D) 25 mcg (1,000 unit) cap Take 2 capsules by mouth once daily. divalproex DR (DEPAKOTE) 500 mg EC tablet Take 2 tablets by mouth two times a day. daily dose 1000mg in the morning and 1250mg at night THERAPEUTIC-M 9 mg iron-400 mcg tablet Take 1 tablet by mouth once daily. diazePAM (VALTOCO) 20 mg/2 spray (10mg/0.1mL x2) nasal spray Use 1 [place] in each nostril as needed for seizures lasting longer than 3 minutes (For seziures > 3 minutes or 3 seizures in 30 minutes.). ibuprofen (MOTRIN) 200 mg tablet Take 2 tablets by mouth every 6 hours as needed for Pain or Fever. No current facility-administered medications on file prior to visit. ALLERGIES Allergen Reactions Bees Anaphylaxis Medical CURRENT PCP: Amanda Cuellar, DO, DO ACTIVE PROBLEM LIST Intermittent Explosive Disorder Partial Idiopathic Epilepsy With Seizures of Localized Onset, Not Intractable, Without Status Epilepticus (Hcc) Kxnc-I-Frinfv-D-Aspartate (Nmda) Receptor Encephalitis Developmental Delay Behavior Problem in Pediatric Patient Localization-Related Epilepsy With Complex Partial Seizures With Intractable Epilepsy (Hcc) Epilepsy (Hcc) S/P Craniotomy Seizure-Like Activity (Hcc) Acne Adhd (Attention Deficit Hyperactivity Disorder), Inattentive Type Adjustment Disorder With Mixed Anxiety and Depressed Mood History of Encephalitis Anti-Nmda Receptor Encephalitis Malnutrition of Moderate Degree (Hcc) Refractory Epilepsy (Hcc) Anti-Nmdar Encephalitis Bilateral Kidney Stones PREVIOUS SURGERIES: PAST SURGICAL HISTORY Procedure Laterality Date CRANIOTOMY PARTIAL/SUBTOTAL HEMISPHERECTOMY Right 05/26/2018 Frontal NEUROSTIM PETR W/ REPROGRAM N/A 02/05/2018 Family Family History Problem Relation Age of Onset other (more content not included)... [facility] 09-11-2023 Telephone encounter Note Called mom via finishing range operator# [phone] No answer, LM to call the office. Huey Priest RN [facility] Work Phone: 09-11-2023 Miscellaneous Notes Called mom via finishing range operator# [phone] No answer, LM to call the office. Huey Priest RN Called mom via finishing range operator# [phone] No answer, LM to call the office. Huey Priest RN Mom called returning missed call Please advise, call back needed with local driver Per Dr. Roper: Sara's serum NMDA antibody level came back high just before his recent rituximab infusion. Would you be able to help arrange to have the level repeated in about a month and also see if we can try and have his next infusion scheduled at the 5 instead of 6 month afshin (so the next infusion would be in mid-December 2023)? Thanks! Called mom via finishing range operator# [phone], no answer. LM to call the office. Huey Priest RN documented in this encounter [facility] 09-11-2023 Telephone encounter Note Called mom via finishing range operator# [phone] No answer, LM to call the office. Huey Priest RN [facility] 09-10-2023 Telephone encounter Note Mom called returning missed call Please advise, call back needed with local driver [facility] 09-10-2023 Note HNO ID: [id number] Author: KENTRELL ABDULLAHI MD Service: ? Author Type: Physician Type: Progress Notes Filed: 09/10/2023 16:25 Note Text: [facility] Section of Pediatric Epilepsy/Neurology Epilepsy Center, Neurological [place] Date of Service: 09/10/2023 RETURN VISIT NOTE - VIRTUAL VISIT. Consent was obtained for this visit. I have communicated my name and active licensure. The patient's identity and physical location were verified at the time of this visit. Either the patient or their legal district representative has been informed of the risks and benefits of -- and alternatives to -- treatment through a remote evaluation and consents to proceed with the evaluation remotely. 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 He also has syncope and low blood pressure.Also concern for psychogenic spells and panic attacks. Sara can with his mother who speaks Gambian. Interview in Gambian. Similar illness that occurred in his 2 year old sister on July 2015 has clarified that Sara illness could have been also NMDA encephalitis. Sara sister is completely recovered from her illness as February 2017 and off of steroids. A 10 yo second cousin via his mother has been diagnosed with NMDA encephalitis in [place]. Sara had a surgical resection right mesial frontal corticeptomy on 05/26/[address] Tomi Maki. 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 - Subpial gliosis. - Focal perivascular white matter atrophy. Neuropsych testing March 2022: Full IQ extremely low (see office visit from 04/01/2021) [place], his mother, has the power of trademark attorney for Sara. Seizure brake though due to adherence problems and covid infection in August 2021. 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 He recoved plasmapherisis, IVIG, steroids and Rituximab. Interval update: This is a 17 year old right handed male who was last seen by me on June 2023. Sara had an episode of a bad dream on 07/08/2023 and woke up crying. Mother though this was a seizure. Sara reported he was dreaming he was dying. No epileptic seizures. Got the last dose of rituximab on July 2023. Topiramate caused kidney stones so it has been changed to Fycompa. He is well hydrated now. He is tolerating well Fycompa with no side effects. He is sleeping well. He has gained some weight. Overall, Sara is more alert. He is playing soccer. Sara graduated from [employer] program so he done with school. He is now to live independently. Sara is working now. Records reviewed: medical chart, previous clinic and test reports, and interim phone calls and notations. Latest Reference Range AND Units 03/14/23 17:45 07/08/23 20:36 07/09/23 18:28 Valproic Acid 50.0 - 100.0 ug/mL 59.1 65.6 VPA, Free 4.0 - 30.0 ug/mL 10.9 Latest Reference Range AND Units 07/10/23 06:17 08/03/23 13:54 08/12/23 08:35 ALT 10 - 54 U/L 30 18 18 AST 14 - 40 U/L 28 24 31 Major health event/concerns since last visit: see HPI.. Side effects that could be medication related: none Previous antiepileptic medications trials: Phenytoin, clonazepam and Depakote eas efficacious for seizures but caused abdominal pain and GI bleeding when he was young , Vimpat had lack of efficacy at dose 300mg/day, Xcopri lack of efficacy DEVELOPMENT/SCHOOL/PSYCHOSOCIAL UPDATE: As and Bs at school which is a significant improvement. Overall Sense of Well Being Since Last Visit: better Driving Status: Not driving. Medications listed as of 09/10/2023 [SEE PLAN BELOW FOR CHANGES MADE TODAY]: Current Outpatient Medications Medication Sig perampanel (FYCOMPA) 8 mg tab(s) Take 1 tablet by mouth daily at bedtime. docusate sodium (COLACE) 100 mg capsule Take 1 capsule by mouth two times a day. tamsulosin (FLOMAX) 0.4 mg Take 1 capsule by mouth at bedtime as needed for up to 14 days. Take for stent discomfort divalproex DR (DEPAKOTE) 250 mg EC tablet Take 1 tablet by mouth daily at 6 pm. daily dose 1000mg in the morning and 1250mg at night Cholecalciferol, Vitamin D3, (VITAMIN D) 25 mcg (1,000 unit) cap Take 2 capsules by mouth once daily. divalproex DR (DEPAKOTE) 500 mg EC tablet Take 2 tablets by mouth two times a day. daily dose 1000mg in the morning and 1250mg at night THERAPEUTIC-M 9 mg iron-400 mcg tablet Take 1 tablet by mouth once daily. diazePAM (VALTOCO) 20 mg/2 spray (10mg/0.1mL x2) nasal spray Use 1 [place] in each nostril as needed for seizures lasting longer than 3 minutes (For seziures > 3 minutes or 3 seizures in 30 minutes.). guanFACINE (TENEX) (more content not included)... [facility] 09-10-2023 History of Present illness Narrative [facility] Section of Pediatric Epilepsy/Neurology Epilepsy Center, Neurological [place] Date of Service: 09/10/2023 RETURN VISIT NOTE - VIRTUAL VISIT. Consent was obtained for this visit. I have communicated my name and active licensure. The patient's identity and physical location were verified at the time of this visit. Either the patient or their legal district representative has been informed of the risks and benefits of -- and alternatives to -- treatment through a remote evaluation and consents to proceed with the evaluation remotely. 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 He also has syncope and low blood pressure.Also concern for psychogenic spells and panic attacks. Sara can with his mother who speaks Gambian. Interview in Gambian. Similar illness that occurred in his 2 year old sister on July 2015 has clarified that Sara illness could have been also NMDA encephalitis. Sara sister is completely recovered from her illness as February 2017 and off of steroids. A 10 yo second cousin via his mother has been diagnosed with NMDA encephalitis in [place]. Sara had a surgical resection right mesial frontal corticeptomy on 05/26/[address] Tomi Maki. 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 - Subpial gliosis. - Focal perivascular white matter atrophy. Neuropsych testing March 2022: Full IQ extremely low (see office visit from 04/01/2021) [place], his mother, has the power of trademark attorney for Sara. Seizure brake though due to adherence problems and covid infection in August 2021. 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 He recoved plasmapherisis, IVIG, steroids and Rituximab. Interval update: This is a 17 year old right handed male who was last seen by me on June 2023. Sara had an episode of a bad dream on 07/08/2023 and woke up crying. Mother though this was a seizure. Sara reported he was dreaming he was dying. No epileptic seizures. Got the last dose of rituximab on July 2023. Topiramate caused kidney stones so it has been changed to Fycompa. He is well hydrated now. He is tolerating well Fycompa with no side effects. He is sleeping well. He has gained some weight. Overall, Sara is more alert. He is playing soccer. Sara graduated from [employer] so he done with school. He is now to live independently. Sara is working now. Records reviewed: medical chart, previous clinic and test reports, and interim phone calls and notations. Latest Reference Range & Units 03/14/23 17:45 07/08/23 20:36 07/09/23 18:28 Valproic Acid 50.0 - 100.0 ug/mL 59.1 65.6 VPA, Free 4.0 - 30.0 ug/mL 10.9 Latest Reference Range & Units 07/10/23 06:17 08/03/23 13:54 08/12/23 08:35 ALT 10 - 54 U/L 30 18 18 AST 14 - 40 U/L 28 24 31 Major health event/concerns since last visit: see HPI.. Side effects that could be medication related: none Previous antiepileptic medications trials: Phenytoin, clonazepam and Depakote eas efficacious for seizures but caused abdominal pain and GI bleeding when he was young , Vimpat had lack of efficacy at dose 300mg/day, Xcopri lack of efficacy DEVELOPMENT/SCHOOL/PSYCHOSOCIAL UPDATE: As and Bs at school which is a significant improvement. Overall Sense of Well Being Since Last Visit: better Driving Status: Not driving. Medications listed as of 09/10/2023 [SEE PLAN BELOW FOR CHANGES MADE TODAY]: Current Outpatient Medications Medication Sig perampanel (FYCOMPA) 8 mg tab(s) Take 1 tablet by mouth daily at bedtime. docusate sodium (COLACE) 100 mg capsule Take 1 capsule by mouth two times a day. tamsulosin (FLOMAX) 0.4 mg Take 1 capsule by mouth at bedtime as needed for up to 14 days. Take for stent discomfort divalproex DR (DEPAKOTE) 250 mg EC tablet Take 1 tablet by mouth daily at 6 pm. daily dose 1000mg in the morning and 1250mg at night Cholecalciferol, Vitamin D3, (VITAMIN D) 25 mcg (1,000 unit) cap Take 2 capsules by mouth once daily. divalproex DR (DEPAKOTE) 500 mg EC tablet Take 2 tablets by mouth two times a day. daily dose 1000mg in the morning and 1250mg at night THERAPEUTIC-M 9 mg iron-400 mcg tablet Take 1 tablet by mouth once daily. diazePAM (VALTOCO) 20 mg/2 spray (10mg/0.1mL x2) nasal spray Use 1 [place] in each nostril as needed for seizures lasting longer than 3 minutes (For seziures > 3 minutes or 3 seizures in 30 minutes.). guanFACINE (TENEX) 1 mg tablet Take 1 tablet by mouth once daily. OLANZapine orally disintegrating (ZYPREXA ZYDIS) 5 mg disintegrating tablet Take 1 tablet by mouth as needed. ibuprofen (MOTRIN) 200 mg tablet Take 2 tablets by mouth every 6 hours as needed for Pain or Fever. No current facility-administered medications for this visit. 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 generalized and focal epilepsy, well controlled movement disorder, moderate to severe cognitive impairment (extremely low IQ) and behavioral problems secondary to acute encephalitis of unknown etiology at age 1 years 2. Mild Vitamin D deficiency 3. New onset nocturnal urinary incontinence 4. Behavioral issues improved 5. Depression 6. syncope and low blood pressure EPILEPSY CLASSIFICATION: VEEG February 2023 Associated Conditions: Developmental Delay, Other Condition EEG Classification: Interictal: Intermittent Rhythmic Slow, Regional, Right fronto temporal Continuous Slow, Regional, Right centro parietal >>temporal Baldomero, Regional, Right centro-parietal C4/P4) or fronto central (F4/C4/FZ) Significance: Abnormal III ASSESSMENT: Sara is doing well from the epilepsy point of view. He had kidney stones so the topiramate was changed to Fycompa which he is tolerating well. PLAN: Tests/Labs: None today. Medications: Continue Fycompa 8mg 2.. Continue Depakote DR 500mg, 2 tablets in the morning and 2 tablets with dinner and add a Depakote 250mg at night 3. Seizure rescue plan: Valtoco, 2 sprays in one nostril for seizures lasting more than 3 minutes. 4. Continue vitamin D 1000IU, 2 pills every day and adult multivitamin Return visit: office visit October 2023 Call if seizures The possible risks, benefits, and alternatives to this plan were discussed, including a possibility of breakthrough seizures or worsening with changes in medications. The family is advised to call my office or seek urgent care if there is any worsening or new symptom of concern. I again went over the general epilepsy education and seizure precautions with the family. I spent a total of 35 minutes on the date of the service which included preparing to see the patient, [id number] patient care, completing clinical documentation, obtaining and/or reviewing separately obtained history, counseling and educating the patient/family/caregiver, ordering medications, tests, or procedures, communicating with other HCPs (not separately reported), independently interpreting results (not separately reported), and communicating results to the patient/family/caregiver. Kentrell Smith M.D. Staff, Epilepsy Center/Neurology, Neurological [facility], Mail code - [id number] [id number] CC: Records via digital FAX or Epic Amanda Cuellar, DO [address] [place] [address] Kentrell Smith [address] [id number] The family of Sara Pichardo [address] [facility] [address] documented in this encounter [facility] 09-09-2023 Telephone encounter Note Per Dr. Roper: Sara's serum NMDA antibody level came back high just before his recent rituximab infusion. Would you be able to help arrange to have the level repeated in about a month and also see if we can try and have his next infusion scheduled at the 5 instead of 6 month afshin (so the next infusion would be in mid-December 2023)? Thanks! Called mom via finishing range operator# [phone], no answer. LM to call the office. Huey Priest RN [facility] 08-11-2023 Miscellaneous Notes Called patient's mother to review instructions for 24-hour urine collection. She knows the specimen is to be mailed back to the [facility] laboratory and not [facility]. Paras Bowens MD documented in this encounter [facility] 08-05-2023 Miscellaneous Notes Pharmacy notified. Funmilayo Silva RN [facility] approval perampanel 08/05/23-08/03/24, upload PA faxed to [facility]. Will await determination for approval. Vianca Charles LPN documented in this encounter [facility] 08-05-2023 Miscellaneous Notes Signature completed and form forwarded to email on file via Mod[employer]. Copy mailed to family. Funmilayo Silva RN FMLA form completed and forwarded to Dr. Haider for signature via [employer]. Funmilayo Silva RN FMLA form received for completion. Funmilayo Silva RN documented in this encounter [facility] 08-05-2023 Miscellaneous Notes Opened in error. documented in this encounter [facility] 08-04-2023 Miscellaneous Notes Date of service: August 04, 2023 Sara Pichardo is a 17 year old Last seen by Dr. Haider on 06/26/2023 Now requesting perampanel refill Prescription appropriate, please file and document electronically. Thank you. Routed to Dr. Meliza Silav, RN Prescription Refill: Mom would like it sent to local [facility]. Requested by: parent Please E-Scribe Caller Contact Number: [phone] (home) Pharmacy Name: [facility] Pharmacy Number: [id number] Generic/ brand: generic 30 or 90 day supply requested: 30 Last appointment: 03/06/23 Next Appointment: Patient of Dr. Haider documented in this encounter [facility] 08-04-2023 Note HNO ID: [id number] Author: PARAS BOWENS MD Service: ? Author Type: Fellow Type: Procedures Filed: 08/04/2023 07:11 Note Text: CYSTOSCOPY WITH URETERAL STENT REMOVAL PROCEDURE NOTE: Sara Pichardo is a 17 year old male who presents for cystoscopy and stent removal, s/p bilateral ureteroscopy, laser lithotripsy with stent placement on July 07. He presented with bilateral ureteral obstruction and severe JONES Stone Analysis: Calcium phosphate Intraoperative Findings: Moderate bilateral stone burden Interval Hx: Frequency: No Urgency: No Dysuria: No Hematuria: No Urinary Tract Infection: No Pt ID verified with patient: Yes Procedure verified with patient: Yes Procedure confirmed with physician and emotional support teacher: Yes Sign In: History and Physical Exam reviewed and is unchanged. Primary Diagnosis: Nephrolithiasis Informed Consent Discussed: Yes Sign in Communication: Completed Time Out: Team Confirms the Correct Patient, Correct Procedure; Stent Extraction, Correct Site and Site Marking, Correct Position (if applicable). Affirmation of Time Out: YES Sign Out: Sign Out Discussion: Completed A urinalysis was performed revealing no evidence of infection. The benefits, risks, alternatives of the cystoscopy procedure and personnel were discussed with the patient. The verbal consent was obtained and the patient agrees to proceed. Procedure: The patient was placed on the procedure table in the supine position and prepped and draped in the usual sterile fashion. 2% Lidocaine Jelly was placed per urethra as an anesthetic in the standard fashion. Once adequate local anesthesia was achieved, the tip of the flexible cystoscope was carefully placed into the urethra under direct visual guidance. The scope was negotiated per urethra with no evidence of stricture into the bladder. The right stent was grasped with endoscopic graspers and removed intact. We then returned with the cystoscope and removed the left stent in tact. At the conclusion of the procedure, the flexible cystoscope was removed atraumatically. The patient tolerated the procedure without complications. Patient was given standard post-procedure instructions ASSESSMENT/PLAN: Follow up appointment will be made for the patient to return to the office in approximately 8 weeks for US +/- KUB, 24 hr urine metabolic studies if indicated. Physician: Paras Bowens MD [facility] 08-04-2023 Procedure note CYSTOSCOPY WITH URETERAL STENT REMOVAL PROCEDURE NOTE: Sara Pichardo is a 17 year old male who presents for cystoscopy and stent removal, s/p bilateral ureteroscopy, laser lithotripsy with stent placement on July 07. He presented with bilateral ureteral obstruction and severe JONES Stone Analysis: Calcium phosphate Intraoperative Findings: Moderate bilateral stone burden Interval Hx: Frequency: No Urgency: No Dysuria: No Hematuria: No Urinary Tract Infection: No Pt ID verified with patient: Yes Procedure verified with patient: Yes Procedure confirmed with physician and emotional support teacher: Yes Sign In: History and Physical Exam reviewed and is unchanged. Primary Diagnosis: Nephrolithiasis Informed Consent Discussed: Yes Sign in Communication: Completed Time Out: Team Confirms the Correct Patient, Correct Procedure; Stent Extraction, Correct Site and Site Marking, Correct Position (if applicable). Affirmation of Time Out: YES Sign Out: Sign Out Discussion: Completed A urinalysis was performed revealing no evidence of infection. The benefits, risks, alternatives of the cystoscopy procedure and personnel were discussed with the patient. The verbal consent was obtained and the patient agrees to proceed. Procedure: The patient was placed on the procedure table in the supine position and prepped and draped in the usual sterile fashion. 2% Lidocaine Jelly was placed per urethra as an anesthetic in the standard fashion. Once adequate local anesthesia was achieved, the tip of the flexible cystoscope was carefully placed into the urethra under direct visual guidance. The scope was negotiated per urethra with no evidence of stricture into the bladder. The right stent was grasped with endoscopic graspers and removed intact. We then returned with the cystoscope and removed the left stent in tact. At the conclusion of the procedure, the flexible cystoscope was removed atraumatically. The patient tolerated the procedure without complications. Patient was given standard post-procedure instructions ASSESSMENT/PLAN: Follow up appointment will be made for the patient to return to the office in approximately 8 weeks for US +/- KUB, 24 hr urine metabolic studies if indicated. Physician: Paras Bowens MD documented in this encounter [facility] 08-03-2023 Note HNO ID: [id number] Author: JUSTICE KRUEGER RN Service: ? Author Type: Registered Nurse Type: Progress Notes Filed: 08/03/2023 15:05 Note Text: UNIVERSAL PROTOCOL / SAFETY CHECKLIST Procedure to be Performed: cystoscopy/stent extraction Sign In: A Moment of CARE was completed. Personnel directly involved with the procedure wore the appropriate PPE (Personal Protective Equipment). Patient/Surrogate Stated/Verified: PATIENT VERIFIED(optional for EMERGENT procedures): Patient name, Date of , Relevant allergies, and The intended procedure Time Out Communication: Intended patient and procedure match the source documents. Consent documented and matches the intended procedure. Relevant labs, photos, and/or imaging studies have been reviewed. No correct side/site applicable for marking and visibility. Fire risk assessed and interventions discussed. No implant(s) inserted. Sign Out: SIGN OUT (optional for EMERGENT procedures): No specimen collected. No instruments, equipment or retained foreign bodies applicable. Post-procedure follow-up management communicated and Plan of Care Visit completed when applicable. Justice Krueger RN [facility] 08-03-2023 History of Present illness Narrative UNIVERSAL PROTOCOL / SAFETY CHECKLIST Procedure to be Performed: cystoscopy/stent extraction Sign In: A Moment of CARE was completed. Personnel directly involved with the procedure wore the appropriate PPE (Personal Protective Equipment). Patient/Surrogate Stated/Verified: PATIENT VERIFIED(optional for EMERGENT procedures): Patient name, Date of , Relevant allergies, and The intended procedure Time Out Communication: Intended patient and procedure match the source documents. Consent documented and matches the intended procedure. Relevant labs, photos, and/or imaging studies have been reviewed. No correct side/site applicable for marking and visibility. Fire risk assessed and interventions discussed. No implant(s) inserted. Sign Out: SIGN OUT (optional for EMERGENT procedures): No specimen collected. No instruments, equipment or retained foreign bodies applicable. Post-procedure follow-up management communicated and Plan of Care Visit completed when applicable. Justice Krueger RN documented in this encounter [facility] 08-03-2023 Nurse Note Actual procedure/procedure scheduled: Yes Performing provider/scheduled provider: Yes Patient was roomed in: Q9- 09 Public Relations Manager offered:Patient accepts, visit chaperoned by mother Patient arrived in the room at: 1440 Patient ready for procedure: 1447 The procedure started at ( Time Only): 1458 The procedure ended at: 1503 Was the procedure delayed: No The patient left the procedure room at: 1515 Justice Krueger RN PRE PROCEDURE ASSESSMENT- Cysto Procedure Indication: Cystoscopy and Stent Extraction Latex Allergy: No Allergies reviewed and updated. Yes Heart valve replacement: No Joint replacement: No Back Office UA otained: not applicable PROCEDURE PREP-Cysto Patient ID with two(2)identifiers verified by: Justice Krueger RN Pre-Procedure Antibiotics: None taken at home nor prior to procedure Patient Prep: Betadine Scrub to perineum and placement of Sterile Drape. COMPLETED Anesthetic Given:10 cc 2% Lidocaine jelly Justice Krueger RN UNIVERSAL PROTOCOL / SAFETY CHECKLIST Procedure to be performed: Cystoscopy and Stent Extraction Sign in Communication: Completed Time Out: Team Confirms the Correct Patient, Correct Procedure, Correct Site and Site Marking, Correct Position (if applicable). Sign Out Discussion: Completed Justice Krueger RN POST PROCEDURE NURSE ASSESSMENT Present along with physician during procedure exam. Justice Krueger RN Instruction sheet given and reviewed and patient verbalizes understanding: yes Post Procedure Antibiotic: none Current pain intensity is 0 on a 0-10 pain scale. Justice Krueger RN AMBULATORY PATIENT EDUCATION THE FOLLOWING WAS EVALUATED Motivation To Learn: Interested Family/Significant Other Support: High - Very involved in pt care Cognitive Ability: Alert/Oriented Method of Instruction: Individual instruction Written instruction - handouts Verbal instruction The Following Influencing Factors Were Barriers To This Education Session: None The Following Physical Limitations Were Barriers To This Education Session: None Instruction Provided To: Patient and family member Methods Specialist Present: not applicable Discipline: Nursing Learning Topic: SURVIVAL SKILLS: Complication Prevention Symptom Management Patient Evaluation: Verbalizes understanding: Yes Supplemental Material Given: Written Material Instructed By Justice Krueger RN In Department Urology . documented in this encounter [facility] 07-10-2023 Note HNO ID: [id number] Author: LEWIS CORDERO MD Service: Pediatric Epilepsy Author Type: Resident Type: Plan of Care Filed: 07/10/2023 11:28 Note Text: Updated Plan of Care: No concern for clinical seizures overnight per primary team. Please continue the medication plan below to complete switch off of Topiramate and on to Fycompa Recommendations: - continue home Depakote DR 1000 mg AM + 1250 mg bed-time - continue Fycompa 8 mg bed-time - continue Topiramate 200 mg BID for the remainder of today (07/09) -- then STOP - we will schedule follow-up with his out-patient Epileptologist in 2 months - out-patient Rituximab infusion currently being re-scheduled (we have notified his Neuroimmunologist, Dr. Roper) Lewis Cordero MD PGY-4, Pediatric Epilepsy Consults July 10, 2023, 11:25 AM [facility] 07-10-2023 Note HNO ID: [id number] Author: BENITEZ HANKS ? Service: Pharmacy Author Type: Turner Off Type: Plan of Care Filed: 07/10/2023 18:24 Note Text: PHARMACY BEDSIDE DELIVERY SERVICE Patient Name: Sara Pichardo The marked outpatient medications were Filled at: [facility] and delivered to the patient's bedside to pts mom Medication List START taking these medications cephALEXin 250 mg capsule delivered Commonly known as: KEFLEX Take 1 capsule by mouth three times a day for 5 days. perampanel 8 mg tab(s) delivered Commonly known as: FYCOMPA Take 1 tablet by mouth daily at bedtime for 90 days. tamsulosin 0.4 mg delivered Commonly known as: FLOMAX Take 1 capsule by mouth at bedtime as needed for up to 14 days. Take for stent discomfort CONTINUE taking these medications Cholecalciferol (Vitamin D3) 25 mcg (1,000 unit) Cap Commonly known as: Vitamin D Take 2 capsules by mouth once daily. * divalproex DR 250 mg EC tablet Commonly known as: DEPAKOTE Take 1 tablet by mouth daily at 6 pm. daily dose 1000mg in the morning and 1250mg at night * divalproex DR 500 mg EC tablet Commonly known as: DEPAKOTE Take 2 tablets by mouth two times a day. daily dose 1000mg in the morning and 1250mg at night docusate sodium 100 mg capsule Commonly known as: COLACE Take 1 capsule by mouth twice daily. guanFACINE 1 mg tablet Commonly known as: TENEX Take 1 tablet by mouth once daily. ibuprofen 200 mg tablet Commonly known as: MOTRIN Take 2 tablets by mouth every 6 hours as needed for Pain or Fever. OLANZapine orally disintegrating 5 mg disintegrating tablet Commonly known as: ZyPREXA Zydis Take 1 tablet by mouth as needed. THERAPEUTIC-M 9 mg iron-400 mcg tablet Generic drug: therapeutic multivitamin-minerals Take 1 tablet by mouth once daily. VALTOCO 20 mg/2 spray (10mg/0.1mL x2) nasal spray Generic drug: diazePAM Use 1 [place] in each nostril as needed for seizures lasting longer than 3 minutes (For seziures > 3 minutes or 3 seizures in 30 minutes.). * This list has 2 medication(s) that are the same as other medications prescribed for you. Read the directions carefully, and ask your doctor or other care provider to review them with you. You might also be taking other medications not listed above. If you have questions about any of your other medications, talk to the person who prescribed them or your Primary Care Provider. STOP taking these medications topiramate XR 100 mg cap(s) Commonly known as: QUDEXY XR topiramate XR 200 mg cap(s) Commonly known as: QUDEXY XR topiramate XR 50 mg cap(s) Commonly known as: QUDEXY XR Benitez Hanks July 10, 2023 11:13 AM [facility] 07-10-2023 Note HNO ID: [id number] Author: BENITEZ HANKS ? Service: Pharmacy Author Type: Turner Off Type: Plan of Care Filed: 07/10/2023 11:13 Note Text: Insurance investigation completed Patient has active prescription insurance: Yes - Patient's insurance is in-network with [facility] Insurance loaded into [place]: Already loaded Test claim was completed to verify insurance is active: Successful Any questions, please contact your medication coordinator hotels. Pager #: [phone] [facility] 07-10-2023 Note HNO ID: [id number] Author: RIKY TONG MD Service: Urology Author Type: Resident Type: Progress Notes Filed: 07/10/2023 10:39 Note Text: Documentation Query Based on your medical judgment of the clinical indicators outlined below, please clarify the condition: (Please type X next to your response and sign) Prior: PLT 81 07/08: PLT 95 07/09: PLT 84 Pt has hx of NMDA receptor encephalitis, seizure disorder. Pt currently on Depakote. Treatment: Monitoring PLT levels daily via labs. Please clarify the diagnosis associated with the following clinical indicators Thrombocytopenia d/t ___ (please specify) x Other, please specify chronic Thrombocytopenia present on admission unclear why [facility] 07-10-2023 Note HNO ID: [id number] Author: RIKY TONG MD Service: Urology Author Type: Resident Type: Progress Notes Filed: 07/10/2023 10:28 Note Text: Documentation Query Based on your medical judgment of the clinical indicators outlined below, please clarify the condition: (Please type X next to your response and sign) Clinical Indicators: Prior: CO2 15>12, BUN/CR 27/5.40, GFR 15, 07/07: CO2 15, BUN/CR 30/3.04, GFR 29, 07/08: CO2 18, BUN/CR 30/1.96, GFR 50, 07/09: CO2 21, bun/cr 20/1.70, gfr 103 07/07 OR: ... Bilateral obstructing ureteral stones and was found to be anuric with Cr >5 07/07 OR for Bilateral ureteroscopy, Laser lithotripsy, Bilateral retrograde pyelogram, Bilateral ureteral stent insertion d/t bilateral kidney stones. Treatment: Lithotripsy, [id number]/2NS@75 mL/hr (07/07-current), LR@75 mL/hr (07/07), NS 500 mL bolus IV x1 (07/08), NS@75 mL/hr (07/07) Please clarify the diagnosis associated with the above clinical indicators: x Acidosis Other, please specify [facility] 07-10-2023 Note HNO ID: [id number] Author: RIKY TONG MD Service: Urology Author Type: Resident Type: Progress Notes Filed: 07/10/2023 10:24 Note Text: Documentation Query Based on your medical judgment of the clinical indicators outlined below, please clarify the condition: (Please type X next to your response and sign) Prior: BUN/CR 27/5.40, GFR 15, 07/07: BUN/CR 30/3.04, GFR 29, UA+ 07/08: BUN/CR 30/1.96, GFR 50 07/09: bun/cr 20/1.70, gfr 103 07/07 OR: ... Bilateral obstructing ureteral stones and was found to be anuric with Cr >5 07/07 OR for Bilateral ureteroscopy, Laser lithotripsy, Bilateral retrograde pyelogram, Bilateral ureteral stent insertion d/t bilateral kidney stones. Treatment: Lithotripsy, VaRdklss765/2NS@75 mL/hr (07/07-current), LR@75 mL/hr (07/07), NS 500 mL bolus IV x1 (07/08), NS@75 mL/hr (07/07) Please clarify the diagnosis associated with the following clinical indicators x Acute Kidney Failure ATN d/t JONES Other, please specify [facility] 07-10-2023 Note HNO ID: [id number] Author: RIKY TONG MD Service: Urology Author Type: Resident Type: Progress Notes Filed: 07/10/2023 06:49 Note Text: [facility] UROLOGY PROGRESS NOTE Name: Sara Pichardo Bed: G090 [id number]/[id number] Date: 07/10/2023 After Hours [facility] Service Pager: [phone] ASSESSMENT AND PLAN Sara Pichardo is a 17 year old male with history of seizure disorder, NMDA receptor encephalitis (age 1), and urinary incontinence who presents as transfer from OSH for bilateral obstructive uropathy ( R - 5mm UPJ stone, and L 5mm UPJ stone and multiple other nonobstructive stones bilaterally) now 2 Days Post-Op bilateral URS/LL with bilateral ureteral stent placement. Interval: - Bradycardic intermittently overnight otherwise NAEON, afebrile - No abdominal pain - No nausea or vomiting - Ambulating - UOP 1.8L, urinating without difficulty - No seizure like activity overnight #Neuro -PRN IV and PO pain control - Tylenol - appreciate Neurology recs regarding patient's history of seizures and missed infusion of anti-seizure medication - Will discharge to home with neurology medication recs; patient to follow up with them as scheduled #CV/Resp -HDS, continue to monitor -Hgb stable #GI/FEN -Diet - regular diet - IVF NS 75cc/hr # - Continue to monitor urine output and electrolytes, evaluate for post-obstructive diuresis - Post-operative Creatinine improving 1.96<--3.04<--4.51<--5.40, AM labs pending #Activity- OOB, Ambulate with assistance as tolerated #DVT prophylaxis - SCDs, Heparin SQ and PAS Stockings on #Antibiotics - Perioperative antibiotics #Disposition - Plan for discharge today home with epilepsy recommendations Active Problems 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 Dev Tong MD Urology Resident [facility] Pager [phone] For weekend or after hours issues please page the on-call urology pager [phone] 07/10/2023 5:48 AM Subjective SUBJECTIVE - See interval above Objective Vital Signs BP 114/60 Pulse (!) 48 Temp 36.6 ?C (97.9 ?F) (Oral) Resp 16 Ht 182.9 cm (6') SpO2 100% BMI 21.47 kg/m? Body mass index is 21.47 kg/m?. Input and Output Intake/Output Summary (Last 24 hours) at 07/10/2023 0508 Last data filed at 07/10/2023 0239 Gross per 24 hour Intake 1200 ml Output 2300 ml Net -1100 ml PHYSICAL EXAM BP 114/60 Pulse (!) 48 Temp 36.6 ?C (97.9 ?F) (Oral) Resp 16 Ht 182.9 cm (6') SpO2 100% BMI 21.47 kg/m? General: Patient in no acute distress HEENT: Non-traumatic, sclera anicteric, EOMI CV: Warm and well perfused Resp: Breathing comfortably on room air MSK: No CVA tenderness, LE compartments soft and non-tender Neuro: Alert Recent Labs 07/09/23 0838 07/08/236 07/08/23 1402 07/08/23 0228 WBC 6.82 -- -- 6.32 HB 14.5 -- -- 13.2 HCT 41.7 -- -- 38.9* PLT 95* -- -- 81* NA 141 139 137 138 K 3.8 3.9 -- 3.8 CHLOR 112* 111* 113* 109* CO2 18* 15* 12* 15* BUN 30* 30* 32* 27* CREAT 1.96* 3.04* 4.51* 5.40* GLUC 85 101* 89 74 Imaging All relevant recent imaging reviewed [facility] 07-09-2023 Note HNO ID: [id number] Author: RIKY TONG MD Service: Urology Author Type: Resident Type: Progress Notes Filed: 07/09/2023 06:51 Note Text: [facility] UROLOGY PROGRESS NOTE Name: Sara Pichardo Bed: G090 [id number] Date: 07/09/2023 After Hours [facility] Urology Service Pager: [phone] ASSESSMENT AND PLAN Sara Pichardo is a 17 year old male with history of seizure disorder, NMDA receptor encephalitis (age 1), and urinary incontinence who presents as transfer from OSH for bilateral obstructive uropathy ( R - 5mm UPJ stone, and L 5mm UPJ stone and multiple other nonobstructive stones bilaterally) now 1 Day Post-Op bilateral URS/LL with bilateral ureteral stent placement. Interval: - NAEON, afebrile. Blood pressures around 100/40-50, given 500cc fluid bolus x2 - Switched to sodium-bicarb IVF given persistent decreased CO2 - No abdominal pain - No nausea or vomiting - Ambulating - UOP 3.6L #Neuro -PRN IV and PO pain control - Tylenol - Neurology consulted regarding patient's history of seizures and missed infusion of anti-seizure medication today,appreciate recs - Will discharge to home with neurology medication recs, and follow up with them as scheduled #CV/Resp -HDS, continue to monitor -Hgb stable #GI/FEN -Diet - regular diet - IVF NS 75cc/hr # - Continue to monitor urine output and electrolytes, evaluate for post-obstructive diuresis- el - Post-operative Creatinine improving 3.04<--4.51<--5.40, AM labs pending #Activity- OOB, Ambulate with assistance as tolerated #DVT prophylaxis - SCDs, Heparin SQ and PAS Stockings on #Antibiotics - Perioperative antibiotics - #Disposition - anticipate D/c today Active Problems 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 Dev Tong MD Urology Resident [facility] Pager [phone] For weekend or after hours issues please page the on-call urology pager [phone] 07/09/2023 6:39 AM Subjective SUBJECTIVE - See interval above Objective Vital Signs BP 103/62 Pulse 68 Temp 36.6 ?C (97.9 ?F) (Oral) Resp 16 Ht 182.9 cm (6') SpO2 100% BMI 21.47 kg/m? Body mass index is 21.47 kg/m?. Input and Output Intake/Output Summary (Last 24 hours) at 07/09/2023 0639 Last data filed at 07/09/2023 0559 Gross per 24 hour Intake 1130 ml Output 3675 ml Net -2545 ml PHYSICAL EXAM BP 103/62 Pulse 68 Temp 36.6 ?C (97.9 ?F) (Oral) Resp 16 Ht 182.9 cm (6') SpO2 100% BMI 21.47 kg/m? General: Patient in no acute distress HEENT: Non-traumatic, sclera anicteric, EOMI CV: Warm and well perfused Resp: Breathing comfortably on room air MSK: No CVA tenderness, LE compartments soft and non-tender : Granado catheter in place draining clear peach urine Neuro: Alert Recent Labs 07/08/23203507/08/23 1402 07/08/23 0228 WBC -- -- 6.32 HB -- -- 13.2 HCT -- -- 38.9* PLT -- -- 81* NA 139 137 138 K 3.9 -- 3.8 CHLOR 111* 113* 109* CO2 15* 12* 15* BUN 30* 32* 27* CREAT 3.04* 4.51* 5.40* GLUC 101* 89 74 Imaging All relevant recent imaging reviewed [facility] 07-08-2023 Note HNO ID: [id number] Author: RIKY TONG MD Service: Urology Author Type: Resident Type: Progress Notes Filed: 07/08/2023 16:25 Note Text: [facility] UROLOGY PROGRESS NOTE Name: Sara Pichardo Bed: G090 [id number] Date: 07/08/2023 After Hours [facility] Service Pager: [phone] ASSESSMENT AND PLAN Sara Pichardo is a 17 year old male with history of seizure disorder, NMDA receptor encephalitis (age 1), and urinary incontinence who presents as transfer from OSH for bilateral obstructive uropathy ( R - 5mm UPJ stone, and L 5mm UPJ stone and multiple other nonobstructive stones bilaterally) now Day of Surgery bilateral URS/LL with bilateral ureteral stent placement. Interval: - Vitally within normal limits since surgery, afebrile - No pain or nausea - Post-operative Creatinine improving 4.51<--5.40 - UOP 1.1L since surgery #Neuro -PRN IV and PO pain control - Tylenol - Neurology consulted regarding patient's history of seizures and missed infusion of anti-seizure medication today,appreciate recs #CV/Resp -HDS, continue to monitor -Hgb 13.2 #GI/FEN -Diet - regular diet - IVF NS 75cc/hr # - Continue to monitor urine output and electrolytes, evaluate for post-obstructive diuresis - If UOP becomes >200cc/hr would recommend repletion with NS at 75% of losses #Activity- OOB, Ambulate with assistance as tolerated #DVT prophylaxis - SCDs, Heparin SQ and PAS Stockings on #Antibiotics - Perioperative antibiotics - #Disposition - anticipate D/c tomorrow pending course Active Problems 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 Body mass index is 21.47 kg/m?. Input and Output Intake/Output Summary (Last 24 hours) at 07/08/2023 1624 Last data filed at 07/08/2023 1443 Gross per 24 hour Intake 930 ml Output 1125 ml Net -195 ml PHYSICAL EXAM BP 115/57 Pulse (!) 49 Temp 36.8 ?C (98.2 ?F) (Oral) Resp 15 Ht 182.9 cm (6') SpO2 100% BMI 21.47 kg/m? General: Patient in no acute distress HEENT: Non-traumatic, sclera anicteric, EOMI CV: Warm and well perfused Resp: Breathing comfortably on room air MSK: No CVA tenderness, LE compartments soft and non-tender : Granado catheter in place draining clear peach urine Neuro: Alert Recent Labs 07/08/23 1402 07/08/23 0228 WBC -- 6.32 HB -- 13.2 HCT -- 38.9* PLT -- 81* NA 137 138 K -- 3.8 CHLOR 113* 109* CO2 12* 15* BUN 32* 27* CREAT 4.51* 5.40* GLUC 89 74 Imaging All relevant recent imaging reviewed [facility] 07-08-2023 Note HNO ID: [id number] Author: JOYCE LE RN Service: Care Management Author Type: Registered Nurse Type: Care Mgt Initial Assessment Filed: 07/08/2023 14:35 Note Text: CARE MANAGEMENT: ASSESSMENT AND DISCHARGE PLAN SERVICE DATE: July 08, 2023 SERVICE TIME: 2:34 PM This patient has been screened for Care Management Transitional Planning Services. At this time, it does not appear this patient will require transition planning services. Should this change, and the patient require transition planning services during this admission, please contact Case Management. SIGNATURE: Joyce Le RN PATIENT NAME: Sara Pichardo DATE: July 08, 2023 TIME: 2:34 PM CONTACT #: [phone] [facility] 07-08-2023 Note HNO ID: [id number] Author: TRINO MANDUJANO APRN.NEWS CONTENT SPECIALIST Service: ? Author Type: Nurse Performance Improvement Specialist Type: Anesthesia Procedure Notes Filed: 07/08/2023 09:08 Note Text: ANESTHESIOLOGY PROCEDURE NOTE PIV General Information Procedure Start Time/Medication Administration: 07/08/2023 8:50 AM Patient Location: OR Staffing NEWS CONTENT SPECIALIST: Trino Mandujano APRN.NEWS CONTENT SPECIALIST Performed by: LEX Preparation Sterility Preparation: hand hygiene performed prior to procedure, surgical cap used, mask used, skin prep agent completely dried prior to procedure Site Prep: alcohol Procedure Details Indication: need for IV access Needle Size/Type: 18 gauge angiocath Orientation: Left Location: Forearm Imaging Guidance Used: No SIGNATURE: Trino Mandujano APRN.CRNA PATIENT NAME: Sara Pichardo DATE: July 08, 2023 TIME: 9:08 AM CSN: [id number] [facility] 07-08-2023 Note HNO ID: [id number] Author: TRINO MANDUJANO APRN.NEWS CONTENT SPECIALIST Service: ? Author Type: Nurse Performance Improvement Specialist Type: Anesthesia Procedure Notes Filed: 07/08/2023 09:07 Note Text: ANESTHESIOLOGY PROCEDURE NOTE Airway General Information Procedure Start Time/Medication Administration: 07/08/2023 8:47 AM Patient location during procedure: OR Timeout Performed Pre-procedure: timeout performed Consent Obtained: Yes Patient identity confirmed: arm band, care collection team lead and patient Staffing NEWS CONTENT SPECIALIST: Trino Mandujano APRN.NEWS CONTENT SPECIALIST Performed by: LEX Indications and Patient Condition Indications for airway management: anesthesia Preoxygenated: yes anesthesia circuit Method: asleep Difficult Mask: No Final Airway Details Final airway type: endotracheal airway Final Endotracheal Airway: ETT Cuffed: yes Successful intubation technique: video laryngoscopy Devices used: uberall Endotracheal tube insertion site: oral Blade: Peña Blade size: #3 ETT size (mm): 7.5 Measured from: lips Measurement (cm): 23 Placement verified by: capnometry Cormack-Lehane Classification: grade I - full view of glottis Number of attempts at approach: 1 Airway not difficult SIGNATURE: Trino Mandujano APRN.CRNA PATIENT NAME: Sara Pichardo DATE: July 08, 2023 TIME: 9:07 AM CSN: [id number] [facility] 07-08-2023 Note HNO ID: [id number] Author: RIKY TONG MD Service: Urology Author Type: Resident Type: Progress Notes Filed: 07/08/2023 08:27 Note Text: [facility] UROLOGY PROGRESS NOTE Name: Sara Pichardo Bed: G090 [id number]/[id number] Date: 07/08/2023 After Hours [facility] Service Pager: [phone] ASSESSMENT AND PLAN Sara Pichardo is a 17 year old male with history of seizure disorder, NMDA receptor encephalitis (age 1), and urinary incontinence who presents as transfer from OSH for bilateral obstructive uropathy ( R - 5mm UPJ stone, and L 5mm UPJ stone and multiple other nonobstructive stones bilaterally) admitted with plan for surgery today for possible bilateral URS Interval: - NAEON, vitals within normal limits, afebrile - No nausea overnight - Not much urine output per mother - Pain managed at this time #Neuro -PRN IV and PO pain control - Tylenol #CV/Resp -HDS, continue to monitor -Hgb 13.2 #GI/FEN -Diet - NPO for procedure today - IVF 75cc/hr # -Scr 5.40 from baseline 0.80 #Activity- OOB, Ambulate with assistance as tolerated #DVT prophylaxis - SCDs, Heparin SQ and PAS Stockings on #Antibiotics - Perioperative antibiotics - #Disposition - anticipate D/c pending course with OR today possible discharge home after Active Problems 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 Body mass index is 21.47 kg/m?. Input and Output Intake/Output Summary (Last 24 hours) at 07/08/2023 0825 Last data filed at 07/08/2023 0600 Gross per 24 hour Intake -- Output 0 ml Net 0 ml PHYSICAL EXAM BP 136/65 Pulse (!) 56 Temp 36.6 ?C (97.9 ?F) (Oral) Resp 18 Ht 182.9 cm (6') SpO2 100% BMI 21.47 kg/m? General: Patient in no acute distress HEENT: Non-traumatic, sclera anicteric, EOMI CV: Warm and well perfused Resp: Breathing comfortably on room air MSK: No CVA tenderness, LE compartments soft and non-tender Neuro: Alert Recent Labs 07/08/23 0228 WBC 6.32 HB 13.2 HCT 38.9* PLT 81* NA 138 K 3.8 CHLOR 109* CO2 15* BUN 27* CREAT 5.40* GLUC 74 Imaging All relevant recent imaging reviewed [facility] 07-07-2023 Miscellaneous Notes Signature completed by Dr. Haider and forwarded to email on file. Funmilayo Silva RN Letter forwarded to Dr. Haider for signature via [employer]. Funmilayo Silva RN Letter looks good. Kentrell Smith MD Per staff message from Dr. Haider dated 06/26/2023: Please write a letter addressed to immigration and saying that I take care of Sara who has epilepsy and an intellectual disability and parents are the main caregivers for him so it is very important that parent continue to oversee his care. Email letter to email in file. Please review, revise or approve the following letter: Immigration Office, I have had the pleasure of treating Sara Pichardo in the management of his epilepsy since November of 2012. 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 His epilepsy is managed with medications. Sara requires a caregiver to maintain his multiple daily medications and appointment since he is unable to drive or make his own medical decisions. Due to his intellectual disability, Sara's parents oversee his care and are his main caregivers. It is very important and recommended that his parents continue to oversee his care. If you have any questions, please do not hesitate to contact the office. Sincerely Routed to Dr. Meliza Silva RN documented in this encounter [facility] 07-07-2023 Miscellaneous Notes Via regulatory scientist, spoke to Ms. Garcia. Advised to follow up with Dr. Roper office regarding infusion as ordering physician. She verbalized understanding. Funmilayo Silva RN General call : Full name of person calling: Paulina Garcia Relationship to patient: mother Phone # : [phone] Reason for call: Mother states the patient has pain from kidney stone and is being treated. Wants to know if they should continue treatment tomorrow. Patient of Dr. Meliza Smith documented in this encounter [facility] 06-26-2023 Note HNO ID: [id number] Author: KENTRELL ABDULLAHI MD Service: ? Author Type: Physician Type: Progress Notes Filed: 06/29/2023 09:13 Note Text: [facility] Section of Pediatric Epilepsy/Neurology Epilepsy Center, Neurological [place] Date of Service: 06/26/2023 RETURN VISIT NOTE HISTORY SINCE LAST VISIT: The patient has returned for follow-up regarding generalized and focal epilepsy, well controlled movement disorder, mild to moderate cognitive impairment and behavioral problems secondary to acute encephalitis of unknown etiology at age 1 years. He also has syncope and low blood pressure.Also concern for psychogenic spells and panic attacks. Sara can with his mother who speaks Gambian. Interview in Gambian. Similar illness that occurred in his 2 year old sister on July 2015 has clarified that Sara illness could have been also NMDA encephalitis. Sara sister is completely recovered from her illness as February 2017 and off of steroids. Sara had a surgical resection right mesial frontal corticeptomy on 05/26/[address] Tomi Maki. 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 - Subpial gliosis. - Focal perivascular white matter atrophy. Neuropsych testing March 2022: Full IQ extremely low (see office visit from 04/01/2021) [place], his mother, has the power of trademark attorney for Sara. Seizure brake though due to adherence problems and covid infection in August 2021. 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 He recoved plasmapherisis, IVIG, steroids and Rituximab. Interval update: This is a 17 year old right handed male who was last seen by me on February 2023 during VEEG. Sara came to the office visit with his father. I spoke to Sara's mother on the phone. Both parents provided updates. No seizures. Sister reported she saw a seizure at home but parents has not seen anything for a long time. Main concern if weight loss but he is returning to his growth curve. No issues with Depakote an topiramate He is going to the gym now. He is deconditioned. Sara will start working soon in [employer]. . Records reviewed: medical chart, previous clinic and test reports, and interim phone calls and notations. [facility] February 2023: Sara Pichardo is a 17 year old right handed male with a prior history of generalized and focal epilepsy, well controlled movement disorder, mild to moderate cognitive impairment and behavioral problems secondary to acute encephalitis of unknown etiology at age 1 years, s/p R mesial frontal lobe resection (04/2018, Dr. Tomi Maki). 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 Roepr, [facility] 10/2022. Sara was admitted to [facility] for evaluation of treatment response. He recently had seizures increment in the setting of flu and Covid infections. Sara underwent intermediate frame tender video EEG from 03/14- . Anti seizure medications were continued during this evaluation. He did not have any seizures. Interictal EEG showed normal posterior background of 9-10 hz and asymmetric sleep structures increased in the right hemisphere, continuous slowing in the right centroparietal more than temporal region with intermittent rhythmic slowing in the right temporal. 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 Interictal EEG shows sharp waves in the right central parietal (equipotential) can be very negative at F4/C4/Fz at times. The patient was discharged home in stable condition. No changes to anti seizure medications were made (Depakote Dr 1000mg - 1250mg at night and Topiramate XR 850mg at dinner time) . Seizure precautions were reiterated. Yann will follow up with Dr Meliza Smith in 3 months Major health event/concerns since last visit: see HPI.. Side effects that could be medication related: none Previous antiepileptic medications trials: Phenytoin, clonazepam and Depakote eas efficacious for seizures but caused abdominal pain and GI bleeding when he was young , Vimpat had lack of efficacy at dose 300mg/day, Xcopri lack of efficacy DEVELOPMENT/SCHOOL/PSYCHOSOCIAL UPDATE: As and Bs at school which is a significant improvement. Overall Sense of Well Being Since Last Visit: better Driving Status: Not driving. Medications listed as of 06/26/2023 [SEE PLAN BELOW FOR CHANGES MADE TODAY]: Current Outpatient Medications Medication Sig topiramate XR (QUDEXY XR) 100 mg cap(s) Take 8 capsules by mouth daily at bedtime. Take with one 50 mg capsule = total dose 850 mg at bedtime topiramate (more content not included)... [facility] 06-26-2023 Instructions Kentrell Abdullahi MD - 06/26/2023 3:51 PM EST PLAN: Tests/Labs: None today. Labs in the next visit Medications: 1. Continue Topiramate XR 8 tablets de 100mg and 1 tablet of 50mg at dinner time 2.. Continue Depakote DR 500mg, 2 tablets in the morning and 2 tablets with dinner and add a Depakote 250mg at night 3. Seizure rescue plan: Valtoco, 2 sprays in one nostril for seizures lasting more than 3 minutes. 4. Continue vitamin D 1000IU, 2 pills every day and adult multivitamin Return visit: office visit October 2023 Call if seizures or problems with the pharmacy Kentrell Smith MD documented in this encounter [facility] 06-26-2023 History of Present illness Narrative [facility] Section of Pediatric Epilepsy/Neurology Epilepsy Center, Neurological [place] Date of Service: 06/26/2023 RETURN VISIT NOTE HISTORY SINCE LAST VISIT: The patient has returned for follow-up regarding generalized and focal epilepsy, well controlled movement disorder, mild to moderate cognitive impairment and behavioral problems secondary to acute encephalitis of unknown etiology at age 1 years. He also has syncope and low blood pressure.Also concern for psychogenic spells and panic attacks. Sara can with his mother who speaks Gambian. Interview in Gambian. Similar illness that occurred in his 2 year old sister on July 2015 has clarified that Sara illness could have been also NMDA encephalitis. Sara sister is completely recovered from her illness as February 2017 and off of steroids. Sara had a surgical resection right mesial frontal corticeptomy on 05/26/[address] Tomi Maki. 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 - Subpial gliosis. - Focal perivascular white matter atrophy. Neuropsych testing March 2022: Full IQ extremely low (see office visit from 04/01/2021) [place], his mother, has the power of trademark attorney for Sara. Seizure brake though due to adherence problems and covid infection in August 2021. 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 He recoved plasmapherisis, IVIG, steroids and Rituximab. Interval update: This is a 17 year old right handed male who was last seen by me on February 2023 during VEEG. Sara came to the office visit with his father. I spoke to Sara's mother on the phone. Both parents provided updates. No seizures. Sister reported she saw a seizure at home but parents has not seen anything for a long time. Main concern if weight loss but he is returning to his growth curve. No issues with Depakote an topiramate He is going to the gym now. He is deconditioned. Sara will start working soon in [employer]. . Records reviewed: medical chart, previous clinic and test reports, and interim phone calls and notations. [facility] February 2023: Sara Pichardo is a 17 year old right handed male with a prior history of generalized and focal epilepsy, well controlled movement disorder, mild to moderate cognitive impairment and behavioral problems secondary to acute encephalitis of unknown etiology at age 1 years, s/p R mesial frontal lobe resection (04/2018, Dr. Tomi Maki). 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 Roper, [facility] 10/2022. Sara was admitted to [facility] for evaluation of treatment response. He recently had seizures increment in the setting of flu and Covid infections. Sara underwent intermediate frame tender video EEG from 03/14- . Anti seizure medications were continued during this evaluation. He did not have any seizures. Interictal EEG showed normal posterior background of 9-10 hz and asymmetric sleep structures increased in the right hemisphere, continuous slowing in the right centroparietal more than temporal region with intermittent rhythmic slowing in the right temporal. 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 Interictal EEG shows sharp waves in the right central parietal (equipotential) can be very negative at F4/C4/Fz at times. The patient was discharged home in stable condition. No changes to anti seizure medications were made (Depakote Dr 1000mg - 1250mg at night and Topiramate XR 850mg at dinner time) . Seizure precautions were reiterated. Yann will follow up with Dr Meliza Smith in 3 months Major health event/concerns since last visit: see HPI.. Side effects that could be medication related: none Previous antiepileptic medications trials: Phenytoin, clonazepam and Depakote eas efficacious for seizures but caused abdominal pain and GI bleeding when he was young , Vimpat had lack of efficacy at dose 300mg/day, Xcopri lack of efficacy DEVELOPMENT/SCHOOL/PSYCHOSOCIAL UPDATE: As and Bs at school which is a significant improvement. Overall Sense of Well Being Since Last Visit: better Driving Status: Not driving. Medications listed as of 06/26/2023 [SEE PLAN BELOW FOR CHANGES MADE TODAY]: Current Outpatient Medications Medication Sig topiramate XR (QUDEXY XR) 100 mg cap(s) Take 8 capsules by mouth daily at bedtime. Take with one 50 mg capsule = total dose 850 mg at bedtime topiramate XR (QUDEXY XR) 50 mg cap(s) Take 1 capsule by mouth daily at bedtime. guanFACINE (TENEX) 1 mg tablet Take 1 tablet by mouth once daily. divalproex DR (DEPAKOTE) 250 mg EC tablet Take 250 mg by mouth daily at 6 pm. topiramate XR (QUDEXY XR) 200 mg cap(s) Take 4 capsules by mouth daily at bedtime. daily dose is 850mg Cholecalciferol, Vitamin D3, (VITAMIN D) 25 mcg (1,000 unit) cap Take 2 capsules by mouth once daily. divalproex DR (DEPAKOTE) 500 mg EC tablet Take 2 tablets by mouth two times a day. THERAPEUTIC-M 9 mg iron-400 mcg tablet Take 1 tablet by mouth once daily. diazePAM (VALTOCO) 20 mg/2 spray (10mg/0.1mL x2) nasal spray Use 2 Sprays in the nose as needed (For seziures longer than 3 minutes or 3 seizures in 30 minutes.). OLANZapine orally disintegrating (ZYPREXA ZYDIS) 5 mg disintegrating tablet Take 1 tablet by mouth as needed. ibuprofen (MOTRIN) 200 mg tablet Take 2 tablets by mouth every 6 hours as needed for Pain or Fever. docusate sodium (COLACE) 100 mg capsule Take 1 capsule by mouth twice daily. No current facility-administered medications for this visit. Vital Signs - 06/26/2023: BP (!) 111/44 (BP Site: Right Arm, BP Position: Sitting, BP Cuff Size: Regular Adult) Pulse (!) 57 Temp (!) 35.3 C (95.5 F) (Temporal) Ht 173.5 cm (5' 8.31 ) Wt 71.8 kg (158 lb 4.6 oz) SpO2 100% BMI 23.85 kg/m . PHYSICAL EXAMINATION: General physical examination remains with in normal limits. Sara is alert and active, and in no distress. Skin exam shows acne. No new findings of concern. 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 generalized and focal epilepsy, well controlled movement disorder, moderate to severe cognitive impairment (extremely low IQ) and behavioral problems secondary to acute encephalitis of unknown etiology at age 1 years 2. Mild Vitamin D deficiency 3. New onset nocturnal urinary incontinence 4. Behavioral issues improved 5. Depression 6. syncope and low blood pressure EPILEPSY CLASSIFICATION: VEEG February 2023 Associated Conditions: Developmental Delay, Other Condition EEG Classification: Interictal: Intermittent Rhythmic Slow, Regional, Right fronto temporal Continuous Slow, Regional, Right centro parietal >>temporal Baldomero, Regional, Right centro-parietal C4/P4) or fronto central (F4/C4/FZ) Significance: Abnormal III ASSESSMENT: Sara is doing great. He has has a great reduction in seizures since his diagnosis was clarified and he is immunotherapy. His mood is also improved from the flat affect that he had a year ago. He is now starting a new job. Plan to continue medications for seizures at the current dose. PLAN: Tests/Labs: None today. Labs in the next visit Medications: 1. Continue Topiramate XR 8 tablets de 100mg and 1 tablet of 50mg at dinner time 2.. Continue Depakote DR 500mg, 2 tablets in the morning and 2 tablets with dinner and add a Depakote 250mg at night 3. Seizure rescue plan: Valtoco, 2 sprays in one nostril for seizures lasting more than 3 minutes. 4. Continue vitamin D 1000IU, 2 pills every day and adult multivitamin Return visit: office visit October 2023 Call if seizures or problems with the pharmacy The possible risks, benefits, and alternatives to this plan were discussed, including a possibility of breakthrough seizures or worsening with changes in medications. The family is advised to call my office or seek urgent care if there is any worsening or new symptom of concern. I again went over the general epilepsy education and seizure precautions with the family. I spent a total of 35 minutes on the date of the service which included preparing to see the patient, [id number] patient care, completing clinical documentation, obtaining and/or reviewing separately obtained history, performing a medically appropriate examination, counseling and educating the patient/family/caregiver, ordering medications, tests, or procedures, communicating with other HCPs (not separately reported), independently interpreting results (not separately reported), communicating results to the patient/family/caregiver, and care coordination (not separately reported). Kentrell Smith M.D. Staff, Epilepsy Center/Neurology, Neurological [facility], Mail code - [phone] [id number] CC: Records via digital FAX or [facility] Amanda Cuellar [address] [place] [id number] SELF Phone: N/A Fax: The family of Sara Pichardo [address] [facility] [id number] documented in this encounter [facility] 06-19-2023 Miscellaneous Notes PA approved. Pharmacy notified. Funmilayo Silva, MIKE Date of service: June 19, 2023 Sara Pichardo is a 17 year old Last seen by Dr. Haider on 03/14/2023 Now requesting topiramate XR refill - 200 mg backordered -30 day supply of 100 mg Prescription appropriate, please file and document electronically. Thank you. Routed to Dr. Castillo Silva, RN Medication Concern Person Calling david [place] Name of medication Qudexy 200 mg Concern with medication [facility] Pharmacy is telling family that they do not have the 200 mg and not sure when it will be in stock. Child has 4 pills left. Can a script for 100 mg be sent to [facility] instead? Patient of Dr. Haider documented in this encounter [facility] 05-08-2023 Note HNO ID: [id number] Author: MICHAEL ROPER MD Service: ? Author Type: Physician Type: Progress Notes Filed: 05/10/2023 19:11 Note Text: Pediatric Neurology Outpatient Clinic [facility] Date of Service: 05/08/2023 CC: NMDA-R encephalitis on rituximab Interval History: Repeat serum NMDA-R antibodies decreased from 1:160 to 1:20. Saw Cardiology, no concerns. 3 weeks ago had flu-like symptoms, everyone at home was sick. Still has some cough. Family doctor thought he might have some residual bronchitis which they are monitoring. Not interested in getting COVID booster or flu shots despite my strong recommendation since he is on rituximab. Takes guanfacine in morning to help with his mood per Dr. Vaz. Started working but lost job because he was ill. Trying to find a different job. Will message my nurse to make sure next infusion gets scheduled for June 2023. Needs copy of neuropsych testing, will message Dr. Palomino. R>L UE tremor still present, occasionally drops things, although better after they had weaned down the Oxtellar. Discussed propanolol trial but they do not want to add more meds at this time. They are interested in OT. No other concerns. Visit 11/07/2022: Patient presents in person today, accompanied by Dad. This is a follow up visit with me. Continues on rituximab, no issues. No concern for relapse. Everything is going well. More alert, responsive today. Not as much mood swings, no more fighting. Follows with Dr. Vaz. Reports a couple weeks ago patient was running, then became really short of breath, which then resolved. Has not recurred since. Reminded still needs to follow up with outside Drug Inspector for prior abnormal EKG. Dad now says prefers to have referral to [facility] Cardiology so I have ordered this. Leg pain has completely resolved. Completed all therapies, no ongoing concerns. Graduated high school and will be going to trade school. Will also continue receiving speech therapy through the school. Tremors have improved with weaning down Oxtellar and increasing Topamax per [facility] Epilepsy team. Has had a few seizures likely due to missed meds. Has not scheduled with primary care doctor. Reminded Dad to schedule. No other new or worsening neurological concerns. 06/18/2022 Visit: Patient appears virtually with Dad. Per Dad, Sara last week got very angry and was fighting with sister. Dad tried to calm him down and he started fighting with Dad. Took a while to calm down, then got a panic attack where was breathing really fast and was squeezing a ball to help. Also was more sleepy at school and this has been happening more frequently. Maybe 3 weeks ago he had a flu-like illness. No viral testing was done at that time. No other new or worsening neurologic symptoms reported. Sara seen briefly on video today, appears calm. 05/02/2022 Visit: Patient presents in person today, accompanied by Dad. Next 6-month rituximab infusion scheduled for 07/21/2022 in [facility]. Received his 2 induction doses in Dec 2021 without incident. Doing well overall. No other new or worsening neurological concerns noted. No suggestion of relapse. No recent infections. Having some trouble with hands and notes when trying to lift spoons his hands can shake. Dad concerned could be related to seizure meds, plans to follow up with Dr. Gibbs. Total vitamin D level in target range at 50. Complaining of occasional pain in L posterior leg region behind knee, advised will order ultrasound and x-ray and refer to Ortho. No weakness or neuropathic features. Also advised needs to establish with primary care doctor, Dad requesting a referral. Creatinine a bit elevated, BP ok, last platelet count 126.advised to follow up with primary care for this. Possible also related to anti-seizure meds as rituximab does not typically result in these abnormalities. Doing physical therapy once per week at [facility]. Unable to see any of outside cushion worker's results in chart. Advised needs to follow up with Cardiology given their following note at last visit: Patient with history of NMDA receptor antibody, recurrent epilepsy. Here to establish care. No cardiac symptoms or previous cardiac issues apart from abnormal EKG showing sinus rhythm with possible LVH. Vitals stable. Given associated between MD or septal and item number dysfunction with reported history of dysrhythmias, recommend obtaining echocardiogram for baseline cardiac function and morphology. Also obtain one-week event monitor to screen for any possible under noticed arrhythmias. Had repeat neuropsychological testing with recommendations. Continues seeing Epilepsy and Psychiatry regularly. 01/27/2022 Visit: Presents in person today, accompanied by Mom. This is a follow up visit with me. During November 2021 admission for increased seizure burden and cognitive/behavior (more content not included)... 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 Saw Cardiology, no concerns. 3 weeks ago had flu-like symptoms, everyone at home was sick. Still has some cough. Family doctor thought he might have some residual bronchitis which they are monitoring. Not interested in getting COVID booster or flu shots despite my strong recommendation since he is on rituximab. Takes guanfacine in morning to help with his mood per Dr. Vaz. Started working but lost job because he was ill. Trying to find a different job. Will message my nurse to make sure next infusion gets scheduled for June 2023. Needs copy of neuropsych testing, will message Dr. Palomino. R>L UE tremor still present, occasionally drops things, although better after they had weaned down the Oxtellar. Discussed propanolol trial but they do not want to add more meds at this time. They are interested in OT. No other concerns. Visit 11/07/2022: Patient presents in person today, accompanied by Dad. This is a follow up visit with me. Continues on rituximab, no issues. No concern for relapse. Everything is going well. More alert, responsive today. Not as much mood swings, no more fighting. Follows with Dr. Vaz. Reports a couple weeks ago patient was running, then became really short of breath, which then resolved. Has not recurred since. Reminded still needs to follow up with outside Drug Inspector for prior abnormal EKG. Dad now says prefers to have referral to [facility] Cardiology so I have ordered this. Leg pain has completely resolved. Completed all therapies, no ongoing concerns. Graduated high school and will be going to trade school. Will also continue receiving speech therapy through the school. Tremors have improved with weaning down Oxtellar and increasing Topamax per [facility] Epilepsy team. Has had a few seizures likely due to missed meds. Has not scheduled with primary care doctor. Reminded Dad to schedule. No other new or worsening neurological concerns. 06/18/2022 Visit: Patient appears virtually with Dad. Per Dad, Sara last week got very angry and was fighting with sister. Dad tried to calm him down and he started fighting with Dad. Took a while to calm down, then got a panic attack where was breathing really fast and was squeezing a ball to help. Also was more sleepy at school and this has been happening more frequently. Maybe 3 weeks ago he had a flu-like illness. No viral testing was done at that time. No other new or worsening neurologic symptoms reported. Sara seen briefly on video today, appears calm. 05/02/2022 Visit: Patient presents in person today, accompanied by Dad. Next 6-month rituximab infusion scheduled for 07/21/2022 in [facility]. Received his 2 induction doses in Dec 2021 without incident. Doing well overall. No other new or worsening neurological concerns noted. No suggestion of relapse. No recent infections. Having some trouble with hands and notes when trying to lift spoons his hands can shake. Dad concerned could be related to seizure meds, plans to follow up with Dr. Gibbs. Total vitamin D level in target range at 50. Complaining of occasional pain in L posterior leg region behind knee, advised will order ultrasound and x-ray and refer to Ortho. No weakness or neuropathic features. Also advised needs to establish with primary care doctor, Dad requesting a referral. Creatinine a bit elevated, BP ok, last platelet count 126.advised to follow up with primary care for this. Possible also related to anti-seizure meds as rituximab does not typically result in these abnormalities. Doing physical therapy once per week at [facility]. Unable to see any of outside cushion worker's results in chart. Advised needs to follow up with Cardiology given their following note at last visit: Patient with history of NMDA receptor antibody, recurrent epilepsy. Here to establish care. No cardiac symptoms or previous cardiac issues apart from abnormal EKG showing sinus rhythm with possible LVH. Vitals stable. Given associated between MD or septal and item number dysfunction with reported history of dysrhythmias, recommend obtaining echocardiogram for baseline cardiac function and morphology. Also obtain one-week event monitor to screen for any possible under noticed arrhythmias. Had repeat neuropsychological testing with recommendations. Continues seeing Epilepsy and Psychiatry regularly. 01/27/2022 Visit: Presents in person today, accompanied by Mom. This is a follow up visit with me. During November 2021 admission for increased seizure burden and cognitive/behavioral decline, received steroids, IVIG, PLEX, rituximab as inpatient with improvement. Received Evusheld in hospital. 2nd dose rituximab induction went well, no issues. Discussed with Mom will plan for every 6 month infusions unless clinical worsening occurs. Per Mom, patient doing much better on current treatments, no seizures, abnormal movements, psychotic breaks, or other concerns for relapse since discharge from hospital. Mom concerned about how he will be able to return to school. Will refer for formal neuropsych testing to help guide schooling. Mom now has decision-making guardianship of Sara. Seeing Dr. Gibbs for seizures and Dr. Vaz for behavioral management. Labs overall reassuring. Will plan to repeat serum NMDA level with next set of pre-ritux labs in about 6 months. MRI brain, whole body PET MRI were stable. Will need COVID vaccines and flu shot in 3-5 months. No other new or worsening neuro symptoms reported. 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 Developed prominent cognitive delays and behavioral problems. 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 He was initially evalauted by Dr. Anna Joyce at that time. Per her report, Sara was a previously healthy child with normal neurologic development until 09/20/05. Around that time, he developed spasms of the left thigh with associated left hip pain and frequent falls. On 10/18/05 he developed paroxysmal events concerning for seizures -- described as 15 minute episodes of upward eye-roll, increased ross-motor secretions, generalized tonic movements and dystonic posturing of the right hand, with post-ictal sleepiness for several days. On he had a 60-90 minute episode of unresponsiveness and GTC seizure. He was intubated, loaded with Fosphenytoin, and initiated on fosphenytoin and VPA maintenance. Reportedly he had a low grade fever of 100.4 at that time. Subsequently he developed abnormal movements described as writhing choreiform and hyperkinetic movements in all extremities while awake, increased with agitation and disappearing with sleep. He also devleoped encephalopathy and behavior dysregulation. MRI Brain on 10/2005 showed increased T2 signal in the mesial L frontotemporal region, anterior L insular cortex, and anterior/inferior frontal lobe pepe matter bilaterally. He was monitored on EEG, with choreform movements as described above captured on EEG, with no clear epileptiform discharges on EEG. Although notably, these movements were more consistent with dyskinesia than seizure activity. His background EEG revealed diffuse continuous slowing consistent with moderate encephalopathy. During his hospitalization he was easily agitated, requiring PRN ativan. A description of his movements were recounted by pediatric neurologist Dr. 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 Orolingual dyskinesia much better. EEG performed 10/2006 eventually captured seizures, with interictal showing multiregional left and right frontal, left and right temporal sharp waves. He had a protracted and difficult recovery but managed to recover well on VPA monotherapy, with ~ 1-2 seizures per year since 2006. He was evaluated again by Dr. Joyce in 2012, with reports of increased axial spasms described as axial tonic, head drop and stiffening of the extremities ocurring in clusters. He was started on guanfacine in 2012 with improvement in behavioral agitation. He continued to struggle with cognitive development, requiring an IEP with a 1:1 aid at school and requiring speech, occupational and physical therapy. EEG in 2012 was normal. In August 2015 he was admitted to PMU for nocturnal spells - awakens, cries out, jerking of right hand and foot, occasional full body turn, with frequent enuresis. He reported nightmares of zombies telling him to eat mommy's brain . These were captured during admission and consistent with nocturnal hypermotor seizures. - PET showed bitemporal hypometabolism, asymmetric L orbitofrontal hypometabolism, L anterior superior and basal posterior temporal region. - Ictal SPECT revealed hyperperfusion in th bilateral medial parietal-occipital region. - MRI Brain did not reveal a clear malformation of cortical development. - TIARA showed suspicious sharply contoured discharges over the bilateral parietal and frontal sensors with EEG correlates He underwent sEEG monitoring on 01/2018 with the below results: Interictal: 1 Poly Spikes, Focal Right pre-SMA, right SFG, Right SMA, right and left operculum 2 Poly Spikes, Focal Right pre-SMA and Right SFG 3 Baldomero, Focal Right and left SMA, Left Pre-SMA Ictal: 1 EEG: EEG Seizure, Focal Right Pre-SMA>bilateral SMA, pre-central gyrus, frontal operculum and mid cingulate Seizure: Axial Tonic Seizure -> Generalized Hypermotor Seizure He ultimately underwent craniotomy on 05/26/2018 with R superior frontal gyrus excision. 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 Importantly, in 2015, his sister who was 2.5 years old at that time, was diagnosed with NMDA receptor encephalitis. Per mom, her clinical picture was very similar to Sara's at that age, with behavioral agitation (crying, screaming), dyskinetic movements and new onset seizure activity. She was treated at [facility] by rheumatology, and apparently required intubation and sedation. She received first line immunotherapy as well as Rituximab and Cellcept. He was initially admitted to the PMU on 11/01/2021 for breakthrough seizure activity. He presented to the ED with a 6 minute long seizure at home with left hand shaking followed by generalized convulsion. Notably in the ED, he was very agitated, demonstrating aggression towards ER staff. He was monitored for several days in the PMU where his Oxtellar XR was increased to 2100 mg qhs, and he was continued on TPM ER 800 mg qhs, and Xcopri 25 qhs, with remission of seizure activity. During this admission he underwent an LP due to ongoing concern for AE. CSF revealed pleocytosis (TNC 6), 1 RBC, 33 protein and 65 glucose. IgG index was mildly elevated at 0.62, and OCBs were not present in the CSF. ENS-2 & ENC-2 revealed + NMDA-R antibody with an immunofluorescence titer of 1:32. He has never received immunosuppressive therapy. He was then readmitted to the PMU in mid-November 2021 in the setting of increasing behavioral disturbance at home. Mom states his agitation and agression has been worse since June 2021. Now over the past few weeks, he has been increasingly confused and agitated at home, with decreased sleep, poor appetite,picking and scratching at his skin, and sound sensitivity. Mom relays bizarre behaviors with disorganized thinking. Mom is also concerned about hallucinations, although Sara denies this and she has not witnessed this directly. She is worried about leaving him alone at home, especially with family and pets, given his increasing agitation and unpredictable nature. Per Sara, he endorses that his mood is poor but is unable to give more detail or insight into this. He otherwise feels fine and does not know why he needs to be hospitalized. Notably, he was diagnosed with COVID-19 in both 2019, and August 2021 and was symptomatic with fever and cough, lasting approximately one week. He is not vaccinated against COVID-19. His last seizure was on 11/17 described as sudden unresponsiveness with urinary incontinence, followed by GTC movements > 3 minutes requiring intranasal midazolam with subsequent . No ASM doses missed per mom. He follows with Dr. Vaz and is currently on Prozac as well as Zyprexa PRN for agression. ROS: A comprehensive review of systems was otherwise negative. HISTORY REVIEWED: PAST MEDICAL HISTORY Diagnosis Date Adolescent behavior problems Iuht-F-ddgjnt-D-aspartate (NMDA) receptor encephalitis 10/25/2005 Developmental delay Intractable seizure disorder (HCC) 10/25/2005 Low blood pressure Movement disorder 10/25/2005 Syncope Urinary incontinence Vitamin D deficiency PAST SURGICAL HISTORY Procedure Laterality Date CRANIOTOMY PARTIAL/SUBTOTAL HEMISPHERECTOMY Right 05/26/2018 Frontal NEUROSTIM PETR W/ REPROGRAM N/A 02/05/2018 FAMILY HISTORY Problem Relation Age of Onset other (NMDA Encephalitis) Sister Social History Tobacco Use Smoking status: Never Passive exposure: Never Smokeless tobacco: Never Current Outpatient Medications Medication Sig Dispense Refill topiramate XR (QUDEXY XR) 50 mg cap(s) Take 1 capsule by mouth daily at bedtime. guanFACINE (TENEX) 1 mg tablet Take 1 tablet by mouth once daily. divalproex DR (DEPAKOTE) 250 mg EC tablet Take 250 mg by mouth daily at 6 pm. topiramate XR (QUDEXY XR) 200 mg cap(s) Take 4 capsules by mouth daily at bedtime. daily dose is 850mg 360 capsule 3 Cholecalciferol, Vitamin D3, (VITAMIN D) 25 mcg (1,000 unit) cap Take 2 capsules by mouth once daily. [address] (DEPAKOTE) 500 mg EC tablet Take 2 tablets by mouth two times a day. 360 tablet 3 THERAPEUTIC-M 9 mg iron-400 mcg tablet Take 1 tablet by mouth once daily. 90 tablet 3 diazePAM (VALTOCO) 20 mg/2 spray (10mg/0.1mL x2) nasal spray Use 2 Sprays in the nose as needed (For seziures longer than 3 minutes or 3 seizures in 30 minutes.). 4 Each 2 OLANZapine orally disintegrating (ZYPREXA ZYDIS) 5 mg disintegrating tablet Take 1 tablet by mouth as needed. 30 tablet 2 ibuprofen (MOTRIN) 200 mg tablet Take 2 tablets by mouth every 6 hours as needed for Pain or Fever. docusate sodium (COLACE) 100 mg capsule Take 1 capsule by mouth twice daily. 30 capsule 0 No current facility-administered medications for this visit. ALLERGIES Allergen Reactions Bees Anaphylaxis History: No pediatric history on file. PHYSICAL EXAMINATION: Overall unchanged from last exam. GENERAL: well developed, no acute distress, not dysmorphic HEAD: normocephalic EYES: clear, no drainage EARS: normal external ear NOSE: no erythema or exudate OP: no lesions, moist mucous membranes CHEST & LUNGS: no retractions CV: extremities warm and well-perfused GI/: Deferred EXTREMITIES: no tenderness/swelling, no cyanosis, no clubbing and no edema/varicosities SKIN: normal color, texture and turgor. No rashes or neurocutaneous lesions noted. NEUROLOGIC: In general this is a healthy-appearing patient who appears to be the stated age and is in no acute distress. The patient is quiet, slow processing overall but responds appropriately to questions. Visual pryor are full to confrontation and extraocular movements are intact with no nystagmus. Facial strength is full and symmetric. Able to raise arms and legs at least against some resistance when asked, without evidence of focal weakness. No obvious tremor, waxy flexibility, seizures, asterixis, negative myoclonus, fasciculations, rigidity, incoordination, dystonia, dysmetria, or other dyskinesias appreciated during the exam. Responds to tactile stimulation of all distal extremities. Reflexes 2+ and symmetric. Normal gait. No signs of meningismus. Sphincter function reported as normal. IMPRESSION : Sara is a 17 year old male with NMDARE, clinically stable on rituximab. Repeat antibody testing in serum decreased from 1:160 to 1:20. RECOMMENDATIONS: 1) Rituximab infusions every 6 months and safety monitoring per [place] treatment protocol. 2) Continue follow up with Peds Epilepsy and Psychiatry. 3) Strongly advised family again today to ensure patient stays up-to-date on COVID, flu, any other non-live catch-up vaccinations he needs. This is due to increased risk of infection with rituximab. [place] time to receive any vaccinations is 3-5 months after a rituximab infusion. 4) Will plan to repeat serum NMDA titer periodically to help guide duration of continuing on rituximab. 5) OT referral for R>L UE tremor. 6) Follow up with me in about 4-6 months, or sooner as needed. Sincerely, Michael Roper MD Staff Pediatric Neurologist Pediatric MS and Neuroimmunology Specialist [facility] A copy of this consultation report will be forwarded to all appropriate parties. I spent a total of 40 minutes on the date of the service which included preparing to see the patient, [id number] patient care, completing clinical documentation, obtaining and/or reviewing separately obtained history, performing a medically appropriate examination, counseling and educating the patient/caregiver and ordering medications, tests, or procedures. Emergency return precautions, anticipatory guidance, counseling, education, support were provided to the patient/caregiver as appropriate. All questions were answered in full. Patient/caregiver verbalized understanding and agreement regarding the plan of care. documented in this encounter [facility] 03-16-2023 Note HNO ID: [id number] Author: Christina Pascual Service: ? Author Type: Turner Off Type: Plan of Care Filed: 03/16/2023 4:55 PM Note Text: Insurance investigation completed Patient has active prescription insurance: Yes - Patient's insurance is in-network with [facility] Insurance loaded into [place]: Yes Test claim was completed to verify insurance is active: Successful Any questions, please contact your medication coordinator hotels. Pager #: [phone] [facility] 03-06-2023 Note HNO ID: [id number] Author: Kentrell Abdullahi MD Service: ? Author Type: Physician Type: Progress Notes Filed: 03/06/2023 12:02 PM Note Text: [facility] Section of Pediatric Epilepsy/Neurology Epilepsy Center, Neurological [place] Date of Service: 03/06/2023 RETURN VISIT NOTE HISTORY SINCE LAST VISIT: The patient has returned for follow-up regarding generalized and focal epilepsy, well controlled movement disorder, mild to moderate cognitive impairment and behavioral problems secondary to acute encephalitis of unknown etiology at age 1 years. He also has syncope and low blood pressure.Also concern for psychogenic spells and panic attacks. Sara can with his mother who speaks Gambian. Interview in Gambian. Similar illness that occurred in his 2 year old sister on July 2015 has clarified that Sara illness could have been also NMDA encephalitis. Sara sister is completely recovered from her illness as February 2017 and off of steroids. Sara had a surgical resection right mesial frontal corticeptomy on 05/26/[address] Tomi Maki. 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 - Subpial gliosis. - Focal perivascular white matter atrophy. Neuropsych testing March 2022: Full IQ extremely low (see office visit from 04/01/2021) [place], his mother, has the power of trademark attorney for Sara. Seizure brake though due to adherence problems and covid infection in August 2021. 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 He recoved plasmapherisis, IVIG, steroids and Rituximab. Interval update: This is a 17 year old right handed male who was last seen by me on October 2022. Seizures have relapsed with around 4 seizures since the last visit. All around 5 in the morning Seizure are short, No rescue medication needed. Seizures occurred when he was sick with the flu. He is no off Oxtellar completely. He is tolerating well Depakote and topiramate in combination. Some fine tremor as side effects of Depakote. He was working in in [employer] but his job was cancelled because he had the flu and he has been sick. Mother and his sister Monika are also sick at home with the flu. Records reviewed: medical chart, previous clinic and test reports, and interim phone calls and notations. Latest Reference Range AND Units 05/16/22 13:37 11/07/22 12:19 Valproic Acid 50.0 - 100.0 ug/mL 65.3 10Hydroxycarbazepine 3.0 - 35.0 ug/mL 29.3 4.7 Latest Reference Range AND Units 05/16/22 13:37 11/07/22 12:19 Topiramate 5.0 - 20.0 ug/mL 13.9 18.2 Major health event/concerns since last visit: see HPI.. Side effects that could be medication related: none Previous antiepileptic medications trials: Phenytoin, clonazepam and Depakote eas efficacious for seizures but caused abdominal pain and GI bleeding when he was young , Vimpat had lack of efficacy at dose 300mg/day, Xcopri lack of efficacy DEVELOPMENT/SCHOOL/PSYCHOSOCIAL UPDATE: As and Bs at school which is a significant improvement. Overall Sense of Well Being Since Last Visit: better Driving Status: Not driving. Medications listed as of 03/06/2023 [SEE PLAN BELOW FOR CHANGES MADE TODAY]: Current Outpatient Medications Medication Sig topiramate XR (QUDEXY XR) 200 mg cap(s) Take 4 capsules by mouth daily at bedtime. daily dose is 850mg topiramate XR (QUDEXY XR) 50 mg cap(s) Take 1 capsule by mouth once daily. Cholecalciferol, Vitamin D3, (VITAMIN D) 25 mcg (1,000 unit) cap Take 2 capsules by mouth once daily. divalproex DR (DEPAKOTE) 500 mg EC tablet Take 2 tablets by mouth twice daily. THERAPEUTIC-M 9 mg iron-400 mcg tablet Take 1 tablet by mouth once daily. therapeutic multivitamin (THERA VITAMIN) tablet Take 1 tablet by mouth once daily. diazePAM (VALTOCO) 20 mg/2 spray (10mg/0.1mL x2) nasal spray Use 2 Sprays in the nose as needed (For seziures longer than 3 minutes or 3 seizures in 30 minutes.). OLANZapine orally disintegrating (ZYPREXA ZYDIS) 5 mg disintegrating tablet Take 1 tablet by mouth as needed. OXcarbazepine ER (OXTELLAR XR) 300 mg tablet Take 6 tablets by mouth daily at bedtime. (Patient not taking: Reported on 01/07/2023) ibuprofen (MOTRIN) 200 mg tablet Take 2 tablets by mouth every 6 hours as needed for Pain or Fever. docusate sodium (COLACE) 100 mg capsule Take 1 capsule by mouth twice daily. No current facility-administered medications for this visit. Vital Signs - 03/06/2023: BP 132/59 (BP Site: Left Arm, BP Position: Sitting) Pulse 76 Temp 36.6 ?C (97.8 ?F) Resp 20 Ht 174 cm (5' 8.5 ) Wt 75.1 kg (165 lb 8 oz) SpO2 98% BMI 24.80 kg/m? . PHYSICAL EXAMINATION: General physical examination remains with in normal limits. Sara is alert and active, and in no distress. Skin exam shows acne. No n (more content not included)... [facility] 12-11-2022 Miscellaneous Notes Signature completed by Dr. Haider and form forwarded to requested fax number via [employer]. Funmilayo Silva RN SAP completed and forwarded to Dr. Haider for signature via [employer]. Funmilayo Silva RN Form received: From (agency / facility / parent): [employer] floor person (if given): Paulina Garcia Phone #: [phone] (home) [phone] school office Fax # : [phone] Email: Please call mom for email address. Information requested: SAP Patient of Dr. haider documented in this encounter [facility] 11-28-2022 Instructions Briseyda Luong, MIKE - 11/28/2022 9:54 AM EDT Thank you for seeing Dr. Plascencia today at [facility] Children's Office Urgent After Hours Number: [phone] (fellow maori liaison adviser) Scheduling Line: [phone] -The echo done today was normal, showing normal heart structure and function. His EKG showed normal heart rhythm -No cardiac medications -No physical restrictions -No need for further follow up unless symptoms arise documented in this encounter [facility] 11-28-2022 Note HNO ID: [id number] Author: James Plascencia MD Service: ? 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 He is referred by Dr. Michael Roper for evaluation. My recommendations will be communicated via the shared medical record or [place] mail. He is accompanied by his father and his sister. History provided by his father and his medical record. History: According to his detailed medical record from Dr. 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 Developed prominent cognitive delays and behavioral problems. 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 He was initially evalauted by Dr. Anna Joyce at that time. Per her report, Sara was a previously healthy child with normal neurologic development until 09/20/05. Around that time, he developed spasms of the left thigh with associated left hip pain and frequent falls. On 10/18/05 he developed paroxysmal events concerning for seizures -- described as 15 minute episodes of upward eye-roll, increased ross-motor secretions, generalized tonic movements and dystonic posturing of the right hand, with post-ictal sleepiness for several days. On he had a 60-90 minute episode of unresponsiveness and GTC seizure. He was intubated, loaded with Fosphenytoin, and initiated on fosphenytoin and VPA maintenance. Reportedly he had a low grade fever of 100.4 at that time. Subsequently he developed abnormal movements described as writhing choreiform and hyperkinetic movements in all extremities while awake, increased with agitation and disappearing with sleep. He also devleoped encephalopathy and behavior dysregulation. MRI Brain on 10/2005 showed increased T2 signal in the mesial L frontotemporal region, anterior L insular cortex, and anterior/inferior frontal lobe pepe matter bilaterally. He was monitored on EEG, with choreform movements as described above captured on EEG, with no clear epileptiform discharges on EEG. Although notably, these movements were more consistent with dyskinesia than seizure activity. His background EEG revealed diffuse continuous slowing consistent with moderate encephalopathy. During his hospitalization he was easily agitated, requiring PRN ativan. A description of his movements were recounted by pediatric neurologist Dr. 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 Orolingual dyskinesia much better. EEG performed 10/2006 eventually captured seizures, with interictal showing multiregional left and right frontal, left and right temporal sharp waves. He had a protracted and difficult recovery but managed to recover well on VPA monotherapy, with ~ 1-2 seizures per year since 2006. He was evaluated again by Dr. Joyce in 2012, with reports of increased axial spasms described as axial tonic, head drop and stiffening of the extremities ocurring in clusters. He was started on guanfacine in 2012 with improvement in behavioral agitation. He continued to struggle with cognitive development, requiring an IEP with a 1:1 aid at school and requiring speech, occupational and physical therapy. EEG in 2012 was normal. In August 2015 he was admitted to PMU for nocturnal spells - awakens, cries out, jerking of right hand and foot, occasional full body turn, with frequent enuresis. He reported nightmares of zombies telling him to eat mommy's brain . These were captured during admission and consistent with nocturnal hypermotor seizures. - PET showed bitemporal hypometabolism, asymmetric L orbitofrontal hypometabolism, L anterior superior and basal posterior temporal region. - Ictal SPECT revealed hyperperfusion in th bilateral medial parietal-occipital region. - MRI Brain did not reveal a edu (more content not included)... 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 He is referred by Dr. Michael Roper for evaluation. My recommendations will be communicated via the shared medical record or [place] mail. He is accompanied by his father and his sister. History provided by his father and his medical record. History: According to his detailed medical record from Dr. 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 Developed prominent cognitive delays and behavioral problems. 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 He was initially evalauted by Dr. Anna Joyce at that time. Per her report, Sara was a previously healthy child with normal neurologic development until 09/20/05. Around that time, he developed spasms of the left thigh with associated left hip pain and frequent falls. On 10/18/05 he developed paroxysmal events concerning for seizures -- described as 15 minute episodes of upward eye-roll, increased ross-motor secretions, generalized tonic movements and dystonic posturing of the right hand, with post-ictal sleepiness for several days. On he had a 60-90 minute episode of unresponsiveness and GTC seizure. He was intubated, loaded with Fosphenytoin, and initiated on fosphenytoin and VPA maintenance. Reportedly he had a low grade fever of 100.4 at that time. Subsequently he developed abnormal movements described as writhing choreiform and hyperkinetic movements in all extremities while awake, increased with agitation and disappearing with sleep. He also devleoped encephalopathy and behavior dysregulation. MRI Brain on 10/2005 showed increased T2 signal in the mesial L frontotemporal region, anterior L insular cortex, and anterior/inferior frontal lobe pepe matter bilaterally. He was monitored on EEG, with choreform movements as described above captured on EEG, with no clear epileptiform discharges on EEG. Although notably, these movements were more consistent with dyskinesia than seizure activity. His background EEG revealed diffuse continuous slowing consistent with moderate encephalopathy. During his hospitalization he was easily agitated, requiring PRN ativan. A description of his movements were recounted by pediatric neurologist Dr. 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 Orolingual dyskinesia much better. EEG performed 10/2006 eventually captured seizures, with interictal showing multiregional left and right frontal, left and right temporal sharp waves. He had a protracted and difficult recovery but managed to recover well on VPA monotherapy, with ~ 1-2 seizures per year since 2006. He was evaluated again by Dr. Joyce in 2012, with reports of increased axial spasms described as axial tonic, head drop and stiffening of the extremities ocurring in clusters. He was started on guanfacine in 2012 with improvement in behavioral agitation. He continued to struggle with cognitive development, requiring an IEP with a 1:1 aid at school and requiring speech, occupational and physical therapy. EEG in 2012 was normal. In August 2015 he was admitted to PMU for nocturnal spells - awakens, cries out, jerking of right hand and foot, occasional full body turn, with frequent enuresis. He reported nightmares of zombies telling him to eat mommy's brain . These were captured during admission and consistent with nocturnal hypermotor seizures. - PET showed bitemporal hypometabolism, asymmetric L orbitofrontal hypometabolism, L anterior superior and basal posterior temporal region. - Ictal SPECT revealed hyperperfusion in th bilateral medial parietal-occipital region. - MRI Brain did not reveal a clear malformation of cortical development. - TIARA showed suspicious sharply contoured discharges over the bilateral parietal and frontal sensors with EEG correlates He underwent sEEG monitoring on 01/2018 with the below results: Interictal: 1 Poly Spikes, Focal Right pre-SMA, right SFG, Right SMA, right and left operculum 2 Poly Spikes, Focal Right pre-SMA and Right SFG 3 Baldomero, Focal Right and left SMA, Left Pre-SMA Ictal: 1 EEG: EEG Seizure, Focal Right Pre-SMA>bilateral SMA, pre-central gyrus, frontal operculum and mid cingulate Seizure: Axial Tonic Seizure -> Generalized Hypermotor Seizure He ultimately underwent craniotomy on 05/26/2018 with R superior frontal gyrus excision. 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 Importantly, in 2016, his sister who was 2.5 years old at that time, was diagnosed with NMDA receptor encephalitis. Per mom, her clinical picture was very similar to Sara's at that age, with behavioral agitation (crying, screaming), dyskinetic movements and new onset seizure activity. She was treated at [facility] by rheumatology, and apparently required intubation and sedation. She received first line immunotherapy as well as Rituximab and Cellcept. He was initially admitted to the PMU on 11/01/2021 for breakthrough seizure activity. He presented to the ED with a 6 minute long seizure at home with left hand shaking followed by generalized convulsion. Notably in the ED, he was very agitated, demonstrating aggression towards ER staff. He was monitored for several days in the PMU where his Oxtellar XR was increased to 2100 mg qhs, and he was continued on TPM ER 800 mg qhs, and Xcopri 25 qhs, with remission of seizure activity. During this admission he underwent an LP due to ongoing concern for AE. CSF revealed pleocytosis (TNC 6), 1 RBC, 33 protein and 65 glucose. IgG index was mildly elevated at 0.62, and OCBs were not present in the CSF. ENS-2 & ENC-2 revealed + NMDA-R antibody with an immunofluorescence titer of 1:32. He has never received immunosuppressive therapy. He was then readmitted to the PMU in mid-November 2021 in the setting of increasing behavioral disturbance at home. Mom states his agitation and agression has been worse since June 2021. Now over the past few weeks, he has been increasingly confused and agitated at home, with decreased sleep, poor appetite,picking and scratching at his skin, and sound sensitivity. Mom relays bizarre behaviors with disorganized thinking. Mom is also concerned about hallucinations, although Sara denies this and she has not witnessed this directly. She is worried about leaving him alone at home, especially with family and pets, given his increasing agitation and unpredictable nature. Per Sara, he endorses that his mood is poor but is unable to give more detail or insight into this. He otherwise feels fine and does not know why he needs to be hospitalized. Notably, he was diagnosed with COVID-19 in both 2019, and August 2021 and was symptomatic with fever and cough, lasting approximately one week. He is not vaccinated against COVID-19. His last seizure was on 11/17 described as sudden unresponsiveness with urinary incontinence, followed by GTC movements > 3 minutes requiring intranasal midazolam with subsequent . No ASM doses missed per mom. He follows with Dr. Vaz and is currently on Prozac as well as Zyprexa PRN for agression. He is currently on rituximab with improvement with his symptoms. From a cardiac standpoint, he has been generally asymptomatic. He denies any chest pain, palpitations, cyanosis, respiratory distress, dyspnea, orthopnea, syncope, presyncope, extremities edema, or changes in activity level. As he has neurological issue, he was recommended not to participate in any sport activity. According to his father, around a month ago, he went out running with his sister. When he returned home, he appeared to be out of breath. However, this might be more related to his stamina. He was once recommended to have a cardiology work up as he was found to have LVH on EKG which was obtained when he went to the emergency department on 12/10/2021 for seizure episode. Past Medical History: PAST MEDICAL HISTORY Diagnosis Date Adolescent behavior problems Rcet-L-vctkld-D-aspartate (NMDA) receptor encephalitis 10/25/2005 Developmental delay Intractable seizure disorder (HCC) 10/25/2005 Low blood pressure Movement disorder 10/25/2005 Syncope Urinary incontinence Vitamin D deficiency Recent major medical illness or hospitalizations: No. Cardiac Family History: Non-contributory. Congenital heart disease: Negative Early onset acquired heart disease or coronary artery heart disease: Negative Cardiomyopathy: Negative Sudden unexpected : Negative Arrhythmias: Negative Aneurysms / dissections: Negative Congenital deafness / LQTS: Negative Social history: Living with sibling(s) Graduated from high school - going to [employer] Review of Systems: General: Normal sleep, appetite and activity. No fevers. HEENT: Negative for headaches, No problems with hearing, wearing glasses, no nose bleeds or other nasal problems Respiratory: Negative for cough, wheezing or respiratory distress Cardiovascular: Negative for chest pain, syncope, lightheadness or heart racing GI: No nausea, vomiting, or diarrhea Neuro: See HPI All other systems reviewed and are negative. Current outpatient prescriptions: topiramate XR (QUDEXY XR) 200 mg cap(s) Take 4 capsules by mouth daily at bedtime. daily dose is 850mg topiramate XR (QUDEXY XR) 50 mg cap(s) Take 1 capsule by mouth once daily. Cholecalciferol, Vitamin D3, (VITAMIN D) 25 mcg (1,000 unit) cap Take 2 capsules by mouth once daily. divalproex DR (DEPAKOTE) 500 mg EC tablet Take 2 tablets by mouth twice daily. diazePAM (VALTOCO) 20 mg/2 spray (10mg/0.1mL x2) nasal spray Use 2 Sprays in the nose as needed (For seziures longer than 3 minutes or 3 seizures in 30 minutes.). THERAPEUTIC-M 9 mg iron-400 mcg tablet Take 1 tablet by mouth once daily. OLANZapine orally disintegrating (ZYPREXA ZYDIS) 5 mg disintegrating tablet Take 1 tablet by mouth as needed. therapeutic multivitamin (THERA VITAMIN) tablet Take 1 tablet by mouth once daily. ibuprofen (MOTRIN) 200 mg tablet Take 2 tablets by mouth every 6 hours as needed for Pain or Fever. docusate sodium (COLACE) 100 mg capsule Take 1 capsule by mouth twice daily. OXcarbazepine ER (OXTELLAR XR) 300 mg tablet Take 6 tablets by mouth daily at bedtime. Allergies: Sara is allergic to bees. Physical Examination: Vital Signs: BP 128/56 (BP Site: Right Arm, BP Position: Sitting, BP Cuff Size: Regular Adult) Pulse 74 Temp 36.3 C (97.4 F) (Temporal) Resp 20 Ht 174 cm (5' 8.5 ) Wt 74.1 kg (163 lb 5.8 oz) SpO2 97% BMI 24.47 kg/m Blood pressure %najma are not available for patients who are 18 years or older. General Appearance: alert, oriented and in no apparent distress HEENT: normocephalic, non-dysmorphic, moist mucous membranes, no central cyanosis, conjuctivae clear, and neck supple with no lymphadenopathy, JVD or carotid abnormality Chest: normal respiratory effort and lung pryor clear to auscultation Cardiovascular: quiet precordium with no heave or thrill, regular rate, normal S1, normal and physiologically splitting S2, no systolic murmur, diastole quiet, and no clicks, rubs or gallops Abdomen: soft, nontender, and liver not enlarged Extremities: upper and lower extremity pulses normal with no brachio-femoral delay, no cyanosis, clubbing or peripheral edema, and no obvious skeletal deformities Neuro: Grossly intact. Skin: clear EKG: A 15-lead electrocardiogram performed today revealed sinus bradycardia with a ventricular rate of 53 beats per minute and a normal QRS axis. All other intervals, forces and durations were within normal limit for age. Echocardiogram which was performed today was reviewed and demonstrated: 1. Normal segmental cardiac anatomy. 2. No obvious intracardiac shunts 3. Normal origin of left main coronary artery with antegrade flow by colour Doppler; right coronary artery appears normal by 2D, not well visualized by colour Doppler 4. Physiologic tricuspid regurgitation; estimated RVSP 20 mmHg + RAp 5. Qualitatively normal right ventricular size and systolic function 6. Normal left ventricular size, wall thickness, and systolic function. 7. Unobstructed left-sided aortic arch with normal branching and normal Doppler pattern 8. No pericardial effusion. 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 He has normal cardiac evaluation today. I reassured him and his father that his cardiac examination, electrocardiogram and echocardiogram are essentially normal. He does not have any abnormal cardiac anatomy or function at all. I do not think his episode of shortness of breath are related to any cardiac condition and most likely related to his exercise stamina. He may continue with age appropriate activities with no specific restriction and does not require antibiotic for bacterial endocarditis prophylaxis. No cardiology followup necessary unless clinically warranted in the future. James Plascencia MD Staff, Pediatric and Adult Congenital Interventional Cardiology I spent a total of 60 minutes on the date of the service which included preparing to see the patient, [id number] patient care, completing clinical documentation, obtaining and/or reviewing separately obtained history, performing a medically appropriate examination, and independently interpreting results (not separately reported). documented in this encounter [facility] 11-11-2022 Miscellaneous Notes Pharmacy notified. Funmilayo Silva RN Received approval for Topir[facility] from [employer] [facility]. Approval Dates: 11/07/22 - 11/06/23. REF #: [id number] Approval uploaded to [employer]. PA completed through [facility]. Will await determination. Sharron Meehan LPN Prior Authorization Needed: Received by: Fax Requested by (pharmacy name): [facility] Phone number: [phone] Name of medication: topiramate Strength and dosage: 50mg Insurance company name and phone #: cmm Patient ID: [id number] PCN #: BIN#: Group #: Patient of Dr. 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 This is a follow up visit with me. Continues on rituximab, no issues. No concern for relapse. Everything is going well. More alert, responsive today. Not as much mood swings, no more fighting. Follows with Dr. Vaz. Reports a couple weeks ago patient was running, then became really short of breath, which then resolved. Has not recurred since. Reminded still needs to follow up with outside Drug Inspector for prior abnormal EKG. Dad now says prefers to have referral to [facility] Cardiology so I have ordered this. Leg pain has completely resolved. Completed all therapies, no ongoing concerns. Graduated high school and will be going to trade school. Will also continue receiving speech therapy through the school. Tremors have improved with weaning down Oxtellar and increasing Topamax per Peds Epilepsy team. Has had a few seizures likely due to missed meds. Has not scheduled with primary care doctor. Reminded Dad to schedule. No other new or worsening neurological concerns. 06/18/2022 Visit: Patient appears virtually with Dad. Per Sara Lee last week got very angry and was fighting with sister. Dad tried to calm him down and he started fighting with Dad. Took a while to calm down, then got a panic attack where was breathing really fast and was squeezing a ball to help. Also was more sleepy at school and this has been happening more frequently. Maybe 3 weeks ago he had a flu-like illness. No viral testing was done at that time. No other new or worsening neurologic symptoms reported. Sara seen briefly on video today, appears calm. 05/02/2022 Visit: Patient presents in person today, accompanied by Dad. Next 6-month rituximab infusion scheduled for 07/21/2022 in [facility]. Received his 2 induction doses in Dec 2021 without incident. Doing well overall. No other new or worsening neurological concerns noted. No suggestion of relapse. No recent infections. Having some trouble with hands and notes when trying to lift spoons his hands can shake. Dad concerned could be related to seizure meds, plans to follow up with Dr. Gibbs. Total vitamin D level in target range at 50. Complaining of occasional pain in L posterior leg region behind knee, advised will order ultrasound and x-ray and refer to Ortho. No weakness or neuropathic features. Also advised needs to establish with primary care doctor, Rosa requesting a referral. Creatinine a bit elevated, BP ok, last platelet count 126.advised to follow up with primary care for this. Possible also related to anti-seizure meds as rituximab does not typically result in these abnormalities. Doing physical therapy once per week at [facility]. Unable to see any of outside cushion worker's results in chart. Advised needs to follow up with Cardiology given their following note at last visit: Patient with history of NMDA receptor antibody, recurrent epilepsy. Here to establish care. No cardiac symptoms or previous cardiac issues apart from abnormal EKG showing sinus rhythm with possible LVH. Vitals stable. Given associated between MD or septal and item number dysfunction with reported history of dysrhythmias, recommend obtaining echocardiogram for baseline cardiac function and morphology. Also obtain one-week event monitor to screen for any possible under noticed arrhythmias. Had repeat neuropsychological testing with recommendations. Continues seeing Epilepsy and Psychiatry regularly. 01/27/2022 Visit: Presents in person today, accompanied by Mom. This is a follow up visit with me. During November 2021 admission for increased seizure burden and cognitive/behavioral decline, received steroids, IVIG, PLEX, rituximab as inpatient with improvement. Received Evusheld in hospital. 2nd dose rituximab induction went well, no issues. Discussed with Mom will plan for every 6 month infusions unless clinical worsening occurs. Per Mom, patient doing much better on current treatments, no seizures, abnormal movements, psychotic breaks, or other concerns for relapse since discharge from hospital. Mom concerned about how he will be able to return to school. Will refer for formal neuropsych testing to help guide schooling. Mom now has decision-making guardianship of Sara. Seeing Dr. Gibbs for seizures and Dr. Vaz for behavioral management. Labs overall reassuring. Will plan to repeat serum NMDA level with next set of pre-ritux labs in about 6 months. MRI brain, whole body PET MRI were stable. Will need COVID vaccines and flu shot in 3-5 months. No other new or worsening neuro symptoms reported. 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 Developed prominent cognitive delays and behavioral problems. 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 He was initially evalauted by Dr. Anna Joyce at that time. Per her report, Sara was a previously healthy child with normal neurologic development until 09/20/05. Around that time, he developed spasms of the left thigh with associated left hip pain and frequent falls. On 10/18/05 he developed paroxysmal events concerning for seizures -- described as 15 minute episodes of upward eye-roll, increased ross-motor secretions, generalized tonic movements and dystonic posturing of the right hand, with post-ictal sleepiness for several days. On he had a 60-90 minute episode of unresponsiveness and GTC seizure. He was intubated, loaded with Fosphenytoin, and initiated on fosphenytoin and VPA maintenance. Reportedly he had a low grade fever of 100.4 at that time. Subsequently he developed abnormal movements described as writhing choreiform and hyperkinetic movements in all extremities while awake, increased with agitation and disappearing with sleep. He also devleoped encephalopathy and behavior dysregulation. MRI Brain on 10/2005 showed increased T2 signal in the mesial L frontotemporal region, anterior L insular cortex, and anterior/inferior frontal lobe pepe matter bilaterally. He was monitored on EEG, with choreform movements as described above captured on EEG, with no clear epileptiform discharges on EEG. Although notably, these movements were more consistent with dyskinesia than seizure activity. His background EEG revealed diffuse continuous slowing consistent with moderate encephalopathy. During his hospitalization he was easily agitated, requiring PRN ativan. A description of his movements were recounted by pediatric neurologist Dr. 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 Orolingual dyskinesia much better. EEG performed 10/2006 eventually captured seizures, with interictal showing multiregional left and right frontal, left and right temporal sharp waves. He had a protracted and difficult recovery but managed to recover well on VPA monotherapy, with ~ 1-2 seizures per year since 2006. He was evaluated again by Dr. Joyce in 2012, with reports of increased axial spasms described as axial tonic, head drop and stiffening of the extremities ocurring in clusters. He was started on guanfacine in 2012 with improvement in behavioral agitation. He continued to struggle with cognitive development, requiring an IEP with a 1:1 aid at school and requiring speech, occupational and physical therapy. EEG in 2012 was normal. In August 2015 he was admitted to PMU for nocturnal spells - awakens, cries out, jerking of right hand and foot, occasional full body turn, with frequent enuresis. He reported nightmares of zombies telling him to eat mommy's brain . These were captured during admission and consistent with nocturnal hypermotor seizures. - PET showed bitemporal hypometabolism, asymmetric L orbitofrontal hypometabolism, L anterior superior and basal posterior temporal region. - Ictal SPECT revealed hyperperfusion in th bilateral medial parietal-occipital region. - MRI Brain did not reveal a clear malformation of cortical development. - TIARA showed suspicious sharply contoured discharges over the bilateral parietal and frontal sensors with EEG correlates He underwent sEEG monitoring on 01/2018 with the below results: Interictal: 1 Poly Spikes, Focal Right pre-SMA, right SFG, Right SMA, right and left operculum 2 Poly Spikes, Focal Right pre-SMA and Right SFG 3 Baldomero, Focal Right and left SMA, Left Pre-SMA Ictal: 1 EEG: EEG Seizure, Focal Right Pre-SMA>bilateral SMA, pre-central gyrus, frontal operculum and mid cingulate Seizure: Axial Tonic Seizure -> Generalized Hypermotor Seizure He ultimately underwent craniotomy on 05/26/2018 with R superior frontal gyrus excision. 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 Importantly, in 2015, his sister who was 2.5 years old at that time, was diagnosed with NMDA receptor encephalitis. Per mom, her clinical picture was very similar to Sara's at that age, with behavioral agitation (crying, screaming), dyskinetic movements and new onset seizure activity. She was treated at [facility] by rheumatology, and apparently required intubation and sedation. She received first line immunotherapy as well as Rituximab and Cellcept. He was initially admitted to the PMU on 11/01/2021 for breakthrough seizure activity. He presented to the ED with a 6 minute long seizure at home with left hand shaking followed by generalized convulsion. Notably in the ED, he was very agitated, demonstrating aggression towards ER staff. He was monitored for several days in the PMU where his Oxtellar XR was increased to 2100 mg qhs, and he was continued on TPM ER 800 mg qhs, and Xcopri 25 qhs, with remission of seizure activity. During this admission he underwent an LP due to ongoing concern for AE. CSF revealed pleocytosis (TNC 6), 1 RBC, 33 protein and 65 glucose. IgG index was mildly elevated at 0.62, and OCBs were not present in the CSF. ENS-2 & ENC-2 revealed + NMDA-R antibody with an immunofluorescence titer of 1:32. He has never received immunosuppressive therapy. He was then readmitted to the PMU in mid-November 2021 in the setting of increasing behavioral disturbance at home. Mom states his agitation and agression has been worse since June 2021. Now over the past few weeks, he has been increasingly confused and agitated at home, with decreased sleep, poor appetite,picking and scratching at his skin, and sound sensitivity. Mom relays bizarre behaviors with disorganized thinking. Mom is also concerned about hallucinations, although Sara denies this and she has not witnessed this directly. She is worried about leaving him alone at home, especially with family and pets, given his increasing agitation and unpredictable nature. Per Sara, he endorses that his mood is poor but is unable to give more detail or insight into this. He otherwise feels fine and does not know why he needs to be hospitalized. Notably, he was diagnosed with COVID-19 in both 2019, and August 2021 and was symptomatic with fever and cough, lasting approximately one week. He is not vaccinated against COVID-19. His last seizure was on 11/17 described as sudden unresponsiveness with urinary incontinence, followed by GTC movements > 3 minutes requiring intranasal midazolam with subsequent . No ASM doses missed per mom. He follows with Dr. Vaz and is currently on Prozac as well as Zyprexa PRN for agression. ROS: A comprehensive review of systems was otherwise negative. HISTORY REVIEWED: PAST MEDICAL HISTORY Diagnosis Date Adolescent behavior problems Evqn-B-gucqnk-D-aspartate (NMDA) receptor encephalitis 10/25/2005 Developmental delay Intractable seizure disorder (HCC) 10/25/2005 Low blood pressure Movement disorder 10/25/2005 Syncope Urinary incontinence Vitamin D deficiency PAST SURGICAL HISTORY Procedure Laterality Date CRANIOTOMY PARTIAL/SUBTOTAL HEMISPHERECTOMY Right 05/26/2018 Frontal NEUROSTIM PETR W/ REPROGRAM N/A 02/05/2018 FAMILY HISTORY Problem Relation Age of Onset other (NMDA Encephalitis) Sister Social History Tobacco Use Smoking status: Never Passive exposure: Never Smokeless tobacco: Never Current Outpatient Medications Medication Sig Dispense Refill OLANZapine orally disintegrating (ZYPREXA ZYDIS) 5 mg disintegrating tablet Take 1 tablet by mouth as needed. 30 tablet 2 OXcarbazepine ER (OXTELLAR XR) 300 mg tablet Take 6 tablets by mouth daily at bedtime. 180 tablet 5 ibuprofen (MOTRIN) 200 mg tablet Take 2 tablets by mouth every 6 hours as needed for Pain or Fever. docusate sodium (COLACE) 100 mg capsule Take 1 capsule by mouth twice daily. 30 capsule 0 topiramate XR (QUDEXY XR) 200 mg cap(s) Take 4 capsules by mouth daily at bedtime. daily dose is 850mg 360 capsule 3 topiramate XR (QUDEXY XR) 50 mg cap(s) Take 1 capsule by mouth once daily. 90 capsule 3 Cholecalciferol, Vitamin D3, (VITAMIN D) 25 mcg (1,000 unit) cap Take 2 capsules by mouth once daily. [address] (DEPAKOTE) 500 mg EC tablet Take 2 tablets by mouth twice daily. 360 tablet 3 diazePAM (VALTOCO) 20 mg/2 spray (10mg/0.1mL x2) nasal spray Use 2 Sprays in the nose as needed (For seziures longer than 3 minutes or 3 seizures in 30 minutes.). 4 Each 2 THERAPEUTIC-M 9 mg iron-400 mcg tablet Take 1 tablet by mouth once daily. 90 tablet 3 therapeutic multivitamin (THERA VITAMIN) tablet Take 1 tablet by mouth once daily. (Patient not taking: Reported on 11/07/2022) 360 tablet 0 No current facility-administered medications for this visit. ALLERGIES Allergen Reactions Bees Anaphylaxis History: No pediatric history on file. PHYSICAL EXAMINATION: Overall unchanged from last exam. GENERAL: well developed, no acute distress, not dysmorphic HEAD: normocephalic EYES: clear, no drainage EARS: normal external ear NOSE: no erythema or exudate OP: no lesions, moist mucous membranes CHEST & LUNGS: no retractions CV: extremities warm and well-perfused GI/: Deferred EXTREMITIES: no tenderness/swelling, no cyanosis, no clubbing and no edema/varicosities SKIN: normal color, texture and turgor. No rashes or neurocutaneous lesions noted. NEUROLOGIC: In general this is a healthy-appearing patient who appears to be the stated age and is in no acute distress. The patient is quiet, slow processing overall but responds appropriately to questions. Visual pryor are full to confrontation and extraocular movements are intact with no nystagmus. Facial strength is full and symmetric. Able to raise arms and legs at least against some resistance when asked, without evidence of focal weakness. No obvious tremor, waxy flexibility, seizures, asterixis, negative myoclonus, fasciculations, rigidity, incoordination, dystonia, dysmetria, or other dyskinesias appreciated during the exam. Responds to tactile stimulation of all distal extremities. Reflexes 2+ and symmetric. Normal gait. No signs of meningismus. Sphincter function reported as normal. IMPRESSION : Sara is a 17 year old male with NMDARE, stable on rituximab. RECOMMENDATIONS: 1) Rituximab per [place] treatment protocol. Also added to check anti-NMDA-R IgG level with next infusion labs. 2) Continue follow up with Peds Epilepsy and Psych. 3) Reminded Dad to schedule primary care referral to ensure stays up-to-date on COVID, flu, any other non-live catch-up vaccinations he needs. This is due to increased risk of infection with rituximab. [place] time to receive any vaccinations is 3-5 months after a rituximab infusion. 4) Dad requesting [facility] referral due to prior EKG abnormalities and SOB with exertion. 5) Follow up with me in about 4-6 months, or sooner as needed. Sincerely, Michael Roper MD Staff Pediatric Neurologist Pediatric Neuroimmunology Specialist [facility] A copy of this consultation report will be forwarded to all appropriate parties. I spent a total of 40 minutes on the date of the service which included preparing to see the patient, [id number] patient care, completing clinical documentation, obtaining and/or reviewing separately obtained history, performing a medically appropriate examination, counseling and educating the patient/caregiver and ordering medications, tests, or procedures. Emergency return precautions, anticipatory guidance, counseling, education, support were provided to the patient/caregiver as appropriate. All questions were answered in full. Patient/caregiver verbalized understanding and agreement regarding the plan of care. Intake information documented in the prior visit with Dr. Sondra Haider today. documented in this encounter [facility] 11-07-2022 Instructions Kentrell Abdullahi MD - 11/07/2022 11:19 AM EDT PLAN: Tests/Labs: None today. Lab work today Video-EEG in January 2023 when he is done with wean of Oxtellar. Breaker Up will call [facility] to schedule Medications: 1. Plan to wean Oxtellas: 10/24/2022: Reduce Oxtellar 300mg to 2 capsules at dinner time for a month 11/23/2022: Reduce Oxtellar 300mg to 1 capsule at dinner time for a month 12/24/2022: STOP Oxtellar 2. Continue Topiramate XR 4 tablets de 200mg and 1 tablet of 50mg at dinner time 3. Continue Depakote DR 500mg, 2 tablets in the morning and 2 tablets with dinner 4. Seizure rescue plan: Valtoco, 2 sprays in one nostril for seizures lasting more than 3 minutes. 5. Continue vitamin D 1000IU, 2 pills every day and adult multivitamin Return visit: office visit February Call if seizures or problems with the pharmacy Kentrell Smith MD documented in this encounter [facility] 11-07-2022 History of Present illness Narrative Please route this encounter to the EMU Scheduling Pool ( P EMU ) or PMU Scheduling Pool ( P PMU ) through LOS & Follow up PHASE 1.0 AND 1.5 ORDER SYNOPSIS Patient: Sara Pichardo ([id number]) Best contact number: [phone] Insurance: Payor: [employer] MEDICAID / Plan: MARTIN ARA MEDICAID [facility] / Product Type: Medicaid / Scheduling Team: Please call for adult patients: Tonia Jennifer ([phone]) Sarah John ([phone]) Rob Lake ([phone]) Renetta Everett([phone]) Narda Garcia([phone]) Please call for pediatric patients: Renetta Everett ([phone]) Tonia Jennifer ([phone]) Sarah John ([phone]) Rob Lake ([phone]),Narda Garcia([phone]) 11/07/2022 Admission Type PMU Pediatric Ketogenic Diet? No Number of Days requested 1 [facility] Admit Priority Routine PURPOSE 11/07/2022 Patient Being Considered for Epilepsy Surgery? No VEEG recommended to assess seizure burden, address new & concerning syymptom-sign complex, and/or clarify syndromic epilepsy diagnosis? 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 VEEG to evaluate treatment response. Consultations None Please route this encounter to the EMU Scheduling pool ( P EMU ) or PMU Scheduling pool ( P PMU ) through LOS & Follow up Scheduling coordinators: For all VNS patients being scheduled for TIARA, please schedule VNS off/on office visits. documented in this encounter [facility] 11-07-2022 History of Present illness Narrative [facility] Section of Pediatric Epilepsy/Neurology Epilepsy Center, Neurological [place] Date of Service: 11/07/2022 RETURN VISIT NOTE HISTORY SINCE LAST VISIT: The patient has returned for follow-up regarding generalized and focal epilepsy, well controlled movement disorder, mild to moderate cognitive impairment and behavioral problems secondary to acute encephalitis of unknown etiology at age 1 years. He also has syncope and low blood pressure.Also concern for psychogenic spells and panic attacks. Sara can with his mother who speaks Gambian. Interview in Gambian. Similar illness that occurred in his 2 year old sister on July 2015 has clarified that Sara illness could have been also NMDA encephalitis. Sara sister is completely recovered from her illness as February 2017 and off of steroids. Sara had a surgical resection right mesial frontal corticeptomy on 05/26/[address] Tomi Maki. 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 - Subpial gliosis. - Focal perivascular white matter atrophy. Neuropsych testing March 2022: Full IQ extremely low (see office visit from 04/01/2021) [facility], his mother, has the power of trademark attorney for Sara. Seizure brake though due to adherence problems and covid infection in August 2021. 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 He recoved plasmapherisis, IVIG, steroids and Rituximab. Interval update: This is a 17 year old right handed male who was last seen by me on June 2022. Since last visit Sara has had 3 seizures out of sleep. Last seizure 11/06/2022. Pharmacy held the last refill or medications last week so Sara missed 2 days or medications. Tremors in hands are present since he is on Depakote. No weight gain. Almost done with the Oxtellar. ON Rituximab every 6 months. Graduated from high school. he is looking into a job in [employer]. He is more talkative and has better mood. He is smiling. Some weight loss, linear growth now at goal. He has not been doing exercises. Good hydration. Records reviewed: medical chart, previous clinic and test reports, and interim phone calls and notations. Latest Reference Range & Units 12/25/21 21:10 01/21/22 09:40 05/16/22 13:37 Valproic Acid 50.0 - 100.0 ug/mL 59.3 85.1 10Hydroxycarbazepine 3.0 - 35.0 ug/mL 14.5 29.2 29.3 Latest Reference Range & Units 12/25/21 21:10 01/21/22 09:40 05/16/22 13:37 Topiramate 5.0 - 20.0 ug/mL 9.7 17.7 13.9 Major health event/concerns since last visit: see HPI.. Side effects that could be medication related: none Previous antiepileptic medications trials: Phenytoin, clonazepam and Depakote eas efficacious for seizures but caused abdominal pain and GI bleeding when he was young , Vimpat had lack of efficacy at dose 300mg/day, Xcopri lack of efficacy DEVELOPMENT/SCHOOL/PSYCHOSOCIAL UPDATE: As and Bs at school which is a significant improvement. Overall Sense of Well Being Since Last Visit: better Driving Status: Not driving. Medications listed as of 11/07/2022 [SEE PLAN BELOW FOR CHANGES MADE TODAY]: Current Outpatient Medications Medication Sig divalproex DR (DEPAKOTE) 500 mg EC tablet Take 2 tablets by mouth twice daily. topiramate XR (QUDEXY XR) 200 mg cap(s) Take 4 capsules by mouth daily at bedtime. OLANZapine orally disintegrating (ZYPREXA ZYDIS) 5 mg disintegrating tablet Take 1 tablet by mouth as needed. OXcarbazepine ER (OXTELLAR XR) 300 mg tablet Take 6 tablets by mouth daily at bedtime. THERAPEUTIC-M 9 mg iron-400 mcg tablet Take 1 tablet by mouth once daily. Cholecalciferol, Vitamin D3, (VITAMIN D) 25 mcg (1,000 unit) cap Take 2 capsules by mouth once daily. diazePAM (VALTOCO) 20 mg/2 spray (10mg/0.1mL x2) nasal spray Use 2 Sprays in the nose as needed (For seziures longer than 3 minutes or 3 seizures in 30 minutes.). ibuprofen (MOTRIN) 200 mg tablet Take 2 tablets by mouth every 6 hours as needed for Pain or Fever. docusate sodium (COLACE) 100 mg capsule Take 1 capsule by mouth twice daily. therapeutic multivitamin (THERA VITAMIN) tablet Take 1 tablet by mouth once daily. (Patient not taking: No sig reported) multivitamin with folic acid (THERA) 400 mcg Take 1 tablet by mouth once daily. (Patient not taking: Reported on 01/27/2022) No current facility-administered medications for this visit. Vital Signs - 11/07/2022: BP 114/57 Pulse 60 Resp 20 Ht 174 cm (5' 8.5 ) Wt 74.8 kg (165 lb) SpO2 98% BMI 24.72 kg/m . PHYSICAL EXAMINATION: General physical examination remains with in normal limits. Sara is alert and active, and in no distress. Skin exam shows acne. No new findings of concern. 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 generalized and focal epilepsy, well controlled movement disorder, moderate to severe cognitive impairment (extremely low IQ) and behavioral problems secondary to acute encephalitis of unknown etiology at age 1 years 2. Mild Vitamin D deficiency 3. New onset nocturnal urinary incontinence 4. Behavioral issues improved 5. Depression 6. syncope and low blood pressure EPILEPSY CLASSIFICATION: VEEG November 2021 Classification Summary Name: Generalized Epilepsy Etiology: Unknown Associated Conditions: Other Condition, Developmental Delay, Family History of Seizures EEG Classification: Interictal: Continuous Slow, Generalized and regional, right fronto -temporal [place], Regional, Right central (C4/CZ/F4 OR C4/P4 Ictal: EEG Seizure, Non-Localizable, Unclassified Complex Motor Seizure ASSESSMENT: Sara is much better overall. He as had few seizures likely due to missing doses due to pharmacy issues with dispensing medications. His mood is greatly improved as well. He is getting a job soon. We discussed modifications of his medications as he is weaning Oxcarbazepine slowly. After completion of wean, we will get an overnight VEEG to evaluate seizure burden. We discussed immunotherapy with Dr Roper and Sara's father. The VEEG will also be informative to make a decision about how long to continue with Rituximab. PLAN: Tests/Labs: None today. Lab work today Video-EEG in January 2023 when he is done with wean of Oxtellar. Medications: 1. Plan to wean Oxtellas: 10/24/2022: Reduce Oxtellar 300mg to 2 capsules at dinner time for a month 11/23/2022: Reduce Oxtellar 300mg to 1 capsule at dinner time for a month 12/24/2022: STOP Oxtellar 2. Continue Topiramate XR 4 tablets de 200mg and 1 tablet of 50mg at dinner time 3. Continue Depakote DR 500mg, 2 tablets in the morning and 2 tablets with dinner 4. Seizure rescue plan: Valtoco, 2 sprays in one nostril for seizures lasting more than 3 minutes. 5. Continue vitamin D 1000IU, 2 pills every day and adult multivitamin Return visit: office visit February Call if seizures or problems with the pharmacy The possible risks, benefits, and alternatives to this plan were discussed, including a possibility of breakthrough seizures or worsening with changes in medications. The family is advised to call my office or seek urgent care if there is any worsening or new symptom of concern. I again went over the general epilepsy education and seizure precautions with the family. I spent a total of 40 minutes on the date of the service which included preparing to see the patient, [id number] patient care, completing clinical documentation, obtaining and/or reviewing separately obtained history, performing a medically appropriate examination, counseling and educating the patient/family/caregiver, ordering medications, tests, or procedures, communicating with other HCPs (not separately reported), independently interpreting results (not separately reported), and communicating results to the patient/family/caregiver. Kentrell Smith M.D. Staff, Epilepsy Center/Neurology, Neurological [place] [facility], Mail code - [phone] [facility] [address] CC: Records via digital FAX or [facility] Amanda Cuellar DO [facility] [place] [address] No referring provider defined for this encounter. Phone: N/A Fax: The family of Sara Pichardo [address] [facility] [address] documented in this encounter [facility] 11-03-2022 Miscellaneous Notes Mother called back for status of refill, please call when script has been sent. Patient is out of medication [phone]. Date of service: November 03, 2022 Sara Pichardo is a 17 year old. Last seen in office visit with Dr. Haider on 07/24/2022 pt has an upcoming appt on 11/07/[address] refill -Prescription appropriate, please file and document electronically. Thank you. -Routed to Dr. Meliza Meehan LPN Prescription Refill: PATIENT OUT OF MEDICATION Requested by: parent Please Call in Caller Contact Number: [phone] (home) Pharmacy Name: [facility] Pharmacy Number: [phone] Generic/ brand: generic 30 or 90 day supply requested: 90 Last appointment: 07/24/22 Next Appointment: 11/07/[address] haider documented in this encounter [facility] 10-22-2022 Miscellaneous Notes Date of service: October 22, 2022 Sara Pichardo is a 17 year old. Last seen in office visit with Dr. Haider on 07/24/2022 pt has an upcoming appt on 11/07/2022 Now requesting topiramate refill -Prescription appropriate, please file and document electronically. Thank you. -Routed to Dr. Meliza Meehan LPN Prescription Refill: Requested by: pharmacy Please E-Scribe Caller Contact Number: Pharmacy Name: [facility] Pharmacy Number: [phone] Generic/ brand: 30 or 90 day supply requested: 90 Last appointment: 07/24/22 Next Appointment: 11/07/[address] Haider documented in this encounter [facility] 07-25-2022 Miscellaneous Notes Letter completed and forwarded to email on file. Funmilayo Silva RN Letter Request: Reason letter is requested. Excuse from school - patient has visit 07/24/22 Person calling: Paulina Garcia To be addressed to: [place] [employer] To Whom It May Concern Address/Email: Phone/ . [phone] Meliza Smith documented in this encounter [facility] 07-14-2022 History of Present illness Narrative Radiology Service Progress Note PATIENT NAME: Sara Pichardo DATE OF SERVICE: July 14, 2022 TIME: 2:58 PM PATIENT IDENTITY VERIFICATION COMPLETED USING TWO (2) IDENTIFIERS: Name and Date of confirmed by patient verbally. FALL SCREENING: Has the patient had 2 falls in the last year or 1 fall with injury or currently using an Ambulatory Assistive Device (Walker, Cane, Wheelchair, Crutches, etc.)? No PATIENT GENDER DATA: Male PATIENT RELEVANT IMPLANT DATA REVIEWED: Yes RADIOLOGY DEPARTMENT: MR; Exam(s) Completed: Spine: Lumbar spine PERIPHERAL IV DATA: Not applicable SIGNED BY: RT Marimar(R) July 14, 2022 2:58 PM documented in this encounter [facility] 07-03-[address] Roper: They can try to get him the COVID vaccine while waiting to see if infusion can be pushed up sooner. Mom calling back, discussed above. Mom understands and is agreeable no further questions/concerns at this time. Huey Priest RN Called mom via finishing range operator# [id number]. No answer, LM to call the office. Huey Priest RN Called mom via finishing range operator# [id number] Discussed below. Mom notes pt has a cough and sore throat. Mom is asking if pt should get his next covid vaccine before the rituximab infusion. Will look into this and call her back. Will also have schedulers reach out to reschedule infusion. Mom understands and is agreeable, no further questions/concerns at this time. Huey Priest RN ----- Message from Michael Roper MD sent at 06/30/2022 3:58 PM EST ----- B cells are starting to repopulate so they should try and move his rituximab infusion sooner. He also tested positive for rhino/enterovirus so this could be contributing to his worsening as well. Thanks. ----- Message ----- From: Huey Priest RN Sent: 06/27/2022 3:25 PM EST To: MD Kwesi Yu, I believe most labs are back - they are in care everywhere after being drawn at [facility] documented in this encounter [facility] 07-02-2022 Miscellaneous Notes Images from the original note were not included. PENDING AUTH Authorization for Rituximab was submitted on 07/01/22 standard or urgent) by the Pharm Auth Team. (Standard 10 business day turnaround Urgent up to 72 hrs.) As of 07/02/22 Auth is still Pending. See message below from Pharm Auth Team Current discussion and documentation time required 15 minutes. === PHARMACY TEAM ==== === PHARMACY TEAM ==== ADDITIONAL INFORMATION NEEDED/REQUESTED Case Submitted: No Request Type: Provider Date of Service: TBS Additional Information Needed: As per patient plan Ruxience is non-preferred drug. Preferred drug is Riabni. Could you please update the treatment plan as per patient plan. Jessica Barboza July 02, 2022 1:01 PM documented in this encounter [facility] 06-19-2022 Miscellaneous Notes Labs and school excuse faxed to numbers below. Confirmations received. Huey Priest RN Called mom via finishing range operator# [id number] Advised Dr. Roper discussed pt with Dr. Mcbride in Dr. Haider's absence. Recommend getting peak levels (2 hrs after dose) of TPM, VPA and OXC. Orders have been entered in addition to the labs Dr. Roper recommended yesterday. Mom would like lab orders faxed to [facility] (fax# [phone]). Mom would also like a school excuse for 06/18 appt faxed to pt's school (fax# [phone]). No further questions/concerns at this time. Huey Priest RN documented in this encounter [facility] 06-19-2022 Miscellaneous Notes Notified by Guillermina Priest (Dr. Roper office) that she will contact mother and include labs requested by Dr. Esparza and Dr. Roper to family. Also stated she will advise mother of requested peak draw. Funmilayo Silva RN Let's check levels. I want to know the peak level- hence asking for a blood draw 1-2 hrs after the dose. Future Appointments Date Time Provider Department Center 06/27/2022 4:00 PM Keren Vaz MD [facility] P Bldg 07/12/2022 5:40 PM MRI 6 RADIO MAIN Q (I-STAT/1.5T/3T) MRIQ Mn Q Bldg 07/21/2022 8:00 AM PEDS CHAIR 12 GRACIELAN Mn R Bldg 07/24/2022 10:20 AM MD QUENTIN [place] Mn S Bldg 11/07/2022 11:30 AM MD KARINA YuCTN Mn S Bldg Valeriy Mcbride MD Neuro Peds Epilepsy Care Coordination Post-seizure/Medication Concerns/Side Effects Date of service : June 18, 2022 Sara Pichardo is a 16 year old. Last seen by Dr. Haider in office visit on 05/06/22. Now ~ Ms. Garcia reporting concern with Sara being excessively sleeping throughout day and school is reporting falling asleep during class for past few weeks. Going to bed 9:30 every night and sleeping through the night. Takes naps on weekends. Mom checks on him at night and he is asleep. Medications reviewed. Denies missed doses, illness or sleep issues. No seizures to report since d/c from hospital. Concern that sleepiness is related to medications and has not seen any improvement since oxcarbazepine was decreased. Current weight : 77 kg Current AEDs ( mg/kg/d) / recent drug level: Oxcarbazepine 300 mg tab ~ 1800 mg at hs / Level on 05/16/22 was 29.3 Topiramate XR 200 mg tab ~ 800 mg at hs / Level on 05/16/[address] 500 mg tab ~ 1000 mg - 1000 mg / Level on 04/23/22 was 114 (range 50-100) For rescue Diazepam 20 mg spray Recent changes/side effects : Reporting sleepiness Main concern : Would like recommendation Inquires if medication is causing sleepiness ======== Called Ms. Garcia, did not receive answer. Message left, will await call-back x2 Ms. Garcia would like to wait on Dr. Haider's return to address concerns, and understands covering physician is available should an urgent need arise. Routed to Dr. Haider and Dr. Esparza (covering) Funmilayo Silva RN Medication Concern Person Calling JosePaulina Name of medication topiramte, depakote Concern with medication meds is making pt sleepy in school & home Patient of Dr. Espinoza documented in this encounter [facility] 06-18-2022 History of Present illness Narrative Pediatric Neurology Outpatient Clinic [facility] Date of Service: 06/18/2022 VIRTUAL VISIT PROGRESS NOTE This is a virtual visit using [employer] video visit. It required patient-provider interaction for the medical decision making as documented below. CC: NMDA-R encephalitis on rituximab Interval History: Per Dad, Sara last week got very angry and was fighting with sister. Dad tried to calm him down and he started fighting with Dad. Took a while to calm down, then got a panic attack where was breathing really fast and was squeezing a ball to help. Also was more sleepy at school and this has been happening more frequently. Maybe 3 weeks ago he had a flu-like illness. No viral testing was done at that time. No other new or worsening neurologic symptoms reported. Sara seen briefly on video today, appears calm. Last Visit Note: Patient presents in person today, accompanied by Dad. Next 6-month rituximab infusion scheduled for 07/21/2022 in [facility]. Received his 2 induction doses in Dec 2021 without incident. Doing well overall. No other new or worsening neurological concerns noted. No suggestion of relapse. No recent infections. Having some trouble with hands and notes when trying to lift spoons his hands can shake. Dad concerned could be related to seizure meds, plans to follow up with Dr. Gibbs. Total vitamin D level in target range at 50. Complaining of occasional pain in L posterior leg region behind knee, advised will order ultrasound and x-ray and refer to Ortho. No weakness or neuropathic features. Also advised needs to establish with primary care doctor, Dad requesting a referral. Creatinine a bit elevated, BP ok, last platelet count 126.advised to follow up with primary care for this. Possible also related to anti-seizure meds as rituximab does not typically result in these abnormalities. Doing physical therapy once per week at [facility]. Unable to see any of outside cushion worker's results in chart. Advised needs to follow up with Cardiology given their following note at last visit: Patient with history of NMDA receptor antibody, recurrent epilepsy. Here to establish care. No cardiac symptoms or previous cardiac issues apart from abnormal EKG showing sinus rhythm with possible LVH. Vitals stable. Given associated between MD or septal and item number dysfunction with reported history of dysrhythmias, recommend obtaining echocardiogram for baseline cardiac function and morphology. Also obtain one-week event monitor to screen for any possible under noticed arrhythmias. Had repeat neuropsychological testing with recommendations. Continues seeing Epilepsy and Psychiatry regularly. Last Visit Note: Presents in person today, accompanied by Mom. This is a follow up visit with me. During November 2021 admission for increased seizure burden and cognitive/behavioral decline, received steroids, IVIG, PLEX, rituximab as inpatient with improvement. Received Evusheld in hospital. 2nd dose rituximab induction went well, no issues. Discussed with Mom will plan for every 6 month infusions unless clinical worsening occurs. Per Mom, patient doing much better on current treatments, no seizures, abnormal movements, psychotic breaks, or other concerns for relapse since discharge from hospital. Mom concerned about how he will be able to return to school. Will refer for formal neuropsych testing to help guide schooling. Mom now has decision-making guardianship of Sara. Seeing Dr. Gibbs for seizures and Dr. Vaz for behavioral management. Labs overall reassuring. Will plan to repeat serum NMDA level with next set of pre-ritux labs in about 6 months. MRI brain, whole body PET MRI were stable. Will need COVID vaccines and flu shot in 3-5 months. No other new or worsening neuro symptoms reported. 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 Developed prominent cognitive delays and behavioral problems. 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 He was initially evalauted by Dr. Anna Joyce at that time. Per her report, Sara was a previously healthy child with normal neurologic development until 09/20/05. Around that time, he developed spasms of the left thigh with associated left hip pain and frequent falls. On 10/18/05 he developed paroxysmal events concerning for seizures -- described as 15 minute episodes of upward eye-roll, increased ross-motor secretions, generalized tonic movements and dystonic posturing of the right hand, with post-ictal sleepiness for several days. On he had a 60-90 minute episode of unresponsiveness and GTC seizure. He was intubated, loaded with Fosphenytoin, and initiated on fosphenytoin and VPA maintenance. Reportedly he had a low grade fever of 100.4 at that time. Subsequently he developed abnormal movements described as writhing choreiform and hyperkinetic movements in all extremities while awake, increased with agitation and disappearing with sleep. He also devleoped encephalopathy and behavior dysregulation. MRI Brain on 10/2005 showed increased T2 signal in the mesial L frontotemporal region, anterior L insular cortex, and anterior/inferior frontal lobe pepe matter bilaterally. He was monitored on EEG, with choreform movements as described above captured on EEG, with no clear epileptiform discharges on EEG. Although notably, these movements were more consistent with dyskinesia than seizure activity. His background EEG revealed diffuse continuous slowing consistent with moderate encephalopathy. During his hospitalization he was easily agitated, requiring PRN ativan. A description of his movements were recounted by pediatric neurologist Dr. 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 Orolingual dyskinesia much better. EEG performed 10/2006 eventually captured seizures, with interictal showing multiregional left and right frontal, left and right temporal sharp waves. He had a protracted and difficult recovery but managed to recover well on VPA monotherapy, with ~ 1-2 seizures per year since 2006. He was evaluated again by Dr. Joyce in 2012, with reports of increased axial spasms described as axial tonic, head drop and stiffening of the extremities ocurring in clusters. He was started on guanfacine in 2012 with improvement in behavioral agitation. He continued to struggle with cognitive development, requiring an IEP with a 1:1 aid at school and requiring speech, occupational and physical therapy. EEG in 2012 was normal. In August 2015 he was admitted to PMU for nocturnal spells - awakens, cries out, jerking of right hand and foot, occasional full body turn, with frequent enuresis. He reported nightmares of zombies telling him to eat mommy's brain . These were captured during admission and consistent with nocturnal hypermotor seizures. - PET showed bitemporal hypometabolism, asymmetric L orbitofrontal hypometabolism, L anterior superior and basal posterior temporal region. - Ictal SPECT revealed hyperperfusion in th bilateral medial parietal-occipital region. - MRI Brain did not reveal a clear malformation of cortical development. - TIARA showed suspicious sharply contoured discharges over the bilateral parietal and frontal sensors with EEG correlates He underwent sEEG monitoring on 01/2018 with the below results: Interictal: 1 Poly Spikes, Focal Right pre-SMA, right SFG, Right SMA, right and left operculum 2 Poly Spikes, Focal Right pre-SMA and Right SFG 3 Baldomero, Focal Right and left SMA, Left Pre-SMA Ictal: 1 EEG: EEG Seizure, Focal Right Pre-SMA>bilateral SMA, pre-central gyrus, frontal operculum and mid cingulate Seizure: Axial Tonic Seizure -> Generalized Hypermotor Seizure He ultimately underwent craniotomy on 05/26/2018 with R superior frontal gyrus excision. 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 Importantly, in 2016, his sister who was 2.5 years old at that time, was diagnosed with NMDA receptor encephalitis. Per mom, her clinical picture was very similar to Sara's at that age, with behavioral agitation (crying, screaming), dyskinetic movements and new onset seizure activity. She was treated at [facility] by rheumatology, and apparently required intubation and sedation. She received first line immunotherapy as well as Rituximab and Cellcept. He was initially admitted to the PMU on 11/01/2021 for breakthrough seizure activity. He presented to the ED with a 6 minute long seizure at home with left hand shaking followed by generalized convulsion. Notably in the ED, he was very agitated, demonstrating aggression towards ER staff. He was monitored for several days in the PMU where his Oxtellar XR was increased to 2100 mg qhs, and he was continued on TPM ER 800 mg qhs, and Xcopri 25 qhs, with remission of seizure activity. During this admission he underwent an LP due to ongoing concern for AE. CSF revealed pleocytosis (TNC 6), 1 RBC, 33 protein and 65 glucose. IgG index was mildly elevated at 0.62, and OCBs were not present in the CSF. ENS-2 & ENC-2 revealed + NMDA-R antibody with an immunofluorescence titer of 1:32. He has never received immunosuppressive therapy. He was then readmitted to the PMU in mid-November 2021 in the setting of increasing behavioral disturbance at home. Mom states his agitation and agression has been worse since June 2021. Now over the past few weeks, he has been increasingly confused and agitated at home, with decreased sleep, poor appetite,picking and scratching at his skin, and sound sensitivity. Mom relays bizarre behaviors with disorganized thinking. Mom is also concerned about hallucinations, although Sara denies this and she has not witnessed this directly. She is worried about leaving him alone at home, especially with family and pets, given his increasing agitation and unpredictable nature. Per Sara, he endorses that his mood is poor but is unable to give more detail or insight into this. He otherwise feels fine and does not know why he needs to be hospitalized. Notably, he was diagnosed with COVID-19 in both 2019, and August 2021 and was symptomatic with fever and cough, lasting approximately one week. He is not vaccinated against COVID-19. His last seizure was on 11/17 described as sudden unresponsiveness with urinary incontinence, followed by GTC movements > 3 minutes requiring intranasal midazolam with subsequent . No ASM doses missed per mom. He follows with Dr. Vaz and is currently on Prozac as well as Zyprexa PRN for agression. ROS: A comprehensive review of systems was otherwise negative. HISTORY REVIEWED: PAST MEDICAL HISTORY Diagnosis Date Adolescent behavior problems Yifx-S-dmlsnl-D-aspartate (NMDA) receptor encephalitis 10/25/2005 Developmental delay Intractable seizure disorder (HCC) 10/25/2005 Low blood pressure Movement disorder 10/25/2005 Syncope Urinary incontinence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 this encounter. Phone: N/A Fax: The family of Sara Pichardo [address] [facility] [address] documented in this encounter [facility] 05-06-2022 Miscellaneous Notes I will discuss with family rima Kentrell Smith MD Images from the original note were not included. Neuro Peds Epilepsy Care Coordination Result Note Date of service : May 06, 2022 Sara Pichardo is a 16 year old. Last seen in office visit with Dr. Haider on 02/26/[address] Haider on 02/26/22. Tests/Labs: Comprehensive metabolic Profile and levels of ASMs and Vitamin D at end of March 2022 Received outside lab results Yes Current AEDs ( mg/kg/d/) / recent drug levels : Oxcarbazepine ER 300 mg tab ~ 2100 mg at hs / Level on 04/23/2022 was 32.8 Topiramate XR 200 mg tab ~ 800 mg at hs / Level on 01/21/[address] 500 mg tab ~ 1000 mg - 1000 mg / Level on 04/23/22 was 114 For rescue Diazepam 20 mg spray Patient update : Ms. Garcia reporting Sara doing pretty good. Medications working well. No seizures to report. Confirmed with lab that topiramate level was not drawn. Has appointment rima at 7:20 Called Ms. Garcia with regulatory scientist, did not receive answer. Message left, will await call-back. Routed to Dr. 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 Next 6-month rituximab infusion scheduled for 07/21/2022 in [facility]. Received his 2 induction doses in Dec 2021 without incident. Doing well overall. No other new or worsening neurological concerns noted. No suggestion of relapse. No recent infections. Having some trouble with hands and notes when trying to lift spoons his hands can shake. Dad concerned could be related to seizure meds, plans to follow up with Dr. Gibbs. Total vitamin D level in target range at 50. Complaining of occasional pain in L posterior leg region behind knee, advised will order ultrasound and x-ray and refer to Ortho. No weakness or neuropathic features. Also advised needs to establish with primary care doctor, Dad requesting a referral. Creatinine a bit elevated, BP ok, last platelet count 126.advised to follow up with primary care for this. Possible also related to anti-seizure meds as rituximab does not typically result in these abnormalities. Doing physical therapy once per week at [facility]. Unable to see any of outside cushion worker's results in chart. Advised needs to follow up with Cardiology given their following note at last visit: Patient with history of NMDA receptor antibody, recurrent epilepsy. Here to establish care. No cardiac symptoms or previous cardiac issues apart from abnormal EKG showing sinus rhythm with possible LVH. Vitals stable. Given associated between MD or septal and item number dysfunction with reported history of dysrhythmias, recommend obtaining echocardiogram for baseline cardiac function and morphology. Also obtain one-week event monitor to screen for any possible under noticed arrhythmias. Had repeat neuropsychological testing with recommendations. Continues seeing Epilepsy and Psychiatry regularly. Last Visit Note: Presents in person today, accompanied by Mom. This is a follow up visit with me. During November 2021 admission for increased seizure burden and cognitive/behavioral decline, received steroids, IVIG, PLEX, rituximab as inpatient with improvement. Received Evusheld in hospital. 2nd dose rituximab induction went well, no issues. Discussed with Mom will plan for every 6 month infusions unless clinical worsening occurs. Per Mom, patient doing much better on current treatments, no seizures, abnormal movements, psychotic breaks, or other concerns for relapse since discharge from hospital. Mom concerned about how he will be able to return to school. Will refer for formal neuropsych testing to help guide schooling. Mom now has decision-making guardianship of Sara. Seeing Dr. Gibbs for seizures and Dr. Vaz for behavioral management. Labs overall reassuring. Will plan to repeat serum NMDA level with next set of pre-ritux labs in about 6 months. MRI brain, whole body PET MRI were stable. Will need COVID vaccines and flu shot in 3-5 months. No other new or worsening neuro symptoms reported. 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 Developed prominent cognitive delays and behavioral problems. 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 He was initially evalauted by Dr. Anna Joyce at that time. Per her report, Sara was a previously healthy child with normal neurologic development until 09/20/05. Around that time, he developed spasms of the left thigh with associated left hip pain and frequent falls. On 10/18/05 he developed paroxysmal events concerning for seizures -- described as 15 minute episodes of upward eye-roll, increased ross-motor secretions, generalized tonic movements and dystonic posturing of the right hand, with post-ictal sleepiness for several days. On he had a 60-90 minute episode of unresponsiveness and GTC seizure. He was intubated, loaded with Fosphenytoin, and initiated on fosphenytoin and VPA maintenance. Reportedly he had a low grade fever of 100.4 at that time. Subsequently he developed abnormal movements described as writhing choreiform and hyperkinetic movements in all extremities while awake, increased with agitation and disappearing with sleep. He also devleoped encephalopathy and behavior dysregulation. MRI Brain on 10/2005 showed increased T2 signal in the mesial L frontotemporal region, anterior L insular cortex, and anterior/inferior frontal lobe pepe matter bilaterally. He was monitored on EEG, with choreform movements as described above captured on EEG, with no clear epileptiform discharges on EEG. Although notably, these movements were more consistent with dyskinesia than seizure activity. His background EEG revealed diffuse continuous slowing consistent with moderate encephalopathy. During his hospitalization he was easily agitated, requiring PRN ativan. A description of his movements were recounted by pediatric neurologist Dr. 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 Orolingual dyskinesia much better. EEG performed 10/2006 eventually captured seizures, with interictal showing multiregional left and right frontal, left and right temporal sharp waves. He had a protracted and difficult recovery but managed to recover well on VPA monotherapy, with ~ 1-2 seizures per year since 2006. He was evaluated again by Dr. Joyce in 2012, with reports of increased axial spasms described as axial tonic, head drop and stiffening of the extremities ocurring in clusters. He was started on guanfacine in 2012 with improvement in behavioral agitation. He continued to struggle with cognitive development, requiring an IEP with a 1:1 aid at school and requiring speech, occupational and physical therapy. EEG in 2012 was normal. In August 2015 he was admitted to PMU for nocturnal spells - awakens, cries out, jerking of right hand and foot, occasional full body turn, with frequent enuresis. He reported nightmares of zombies telling him to eat mommy's brain . These were captured during admission and consistent with nocturnal hypermotor seizures. - PET showed bitemporal hypometabolism, asymmetric L orbitofrontal hypometabolism, L anterior superior and basal posterior temporal region. - Ictal SPECT revealed hyperperfusion in th bilateral medial parietal-occipital region. - MRI Brain did not reveal a clear malformation of cortical development. - TIARA showed suspicious sharply contoured discharges over the bilateral parietal and frontal sensors with EEG correlates He underwent sEEG monitoring on 01/2018 with the below results: Interictal: 1 Poly Spikes, Focal Right pre-SMA, right SFG, Right SMA, right and left operculum 2 Poly Spikes, Focal Right pre-SMA and Right SFG 3 Baldomero, Focal Right and left SMA, Left Pre-SMA Ictal: 1 EEG: EEG Seizure, Focal Right Pre-SMA>bilateral SMA, pre-central gyrus, frontal operculum and mid cingulate Seizure: Axial Tonic Seizure -> Generalized Hypermotor Seizure He ultimately underwent craniotomy on 05/26/2018 with R superior frontal gyrus excision. 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 Importantly, in 2015, his sister who was 2.5 years old at that time, was diagnosed with NMDA receptor encephalitis. Per mom, her clinical picture was very similar to Sara's at that age, with behavioral agitation (crying, screaming), dyskinetic movements and new onset seizure activity. She was treated at [facility] by rheumatology, and apparently required intubation and sedation. She received first line immunotherapy as well as Rituximab and Cellcept. He was initially admitted to the PMU on 11/01/2021 for breakthrough seizure activity. He presented to the ED with a 6 minute long seizure at home with left hand shaking followed by generalized convulsion. Notably in the ED, he was very agitated, demonstrating aggression towards ER staff. He was monitored for several days in the PMU where his Oxtellar XR was increased to 2100 mg qhs, and he was continued on TPM ER 800 mg qhs, and Xcopri 25 qhs, with remission of seizure activity. During this admission he underwent an LP due to ongoing concern for AE. CSF revealed pleocytosis (TNC 6), 1 RBC, 33 protein and 65 glucose. IgG index was mildly elevated at 0.62, and OCBs were not present in the CSF. ENS-2 & ENC-2 revealed + NMDA-R antibody with an immunofluorescence titer of 1:32. He has never received immunosuppressive therapy. He was then readmitted to the PMU in mid-November 2021 in the setting of increasing behavioral disturbance at home. Mom states his agitation and agression has been worse since June 2021. Now over the past few weeks, he has been increasingly confused and agitated at home, with decreased sleep, poor appetite,picking and scratching at his skin, and sound sensitivity. Mom relays bizarre behaviors with disorganized thinking. Mom is also concerned about hallucinations, although Sara denies this and she has not witnessed this directly. She is worried about leaving him alone at home, especially with family and pets, given his increasing agitation and unpredictable nature. Per Sara, he endorses that his mood is poor but is unable to give more detail or insight into this. He otherwise feels fine and does not know why he needs to be hospitalized. Notably, he was diagnosed with COVID-19 in both 2019, and August 2021 and was symptomatic with fever and cough, lasting approximately one week. He is not vaccinated against COVID-19. His last seizure was on 11/17 described as sudden unresponsiveness with urinary incontinence, followed by GTC movements > 3 minutes requiring intranasal midazolam with subsequent . No ASM doses missed per mom. He follows with Dr. Vaz and is currently on Prozac as well as Zyprexa PRN for agression. ROS: A comprehensive review of systems was otherwise negative. HISTORY REVIEWED: PAST MEDICAL HISTORY Diagnosis Date Adolescent behavior problems Zcza-X-jjkfrf-D-aspartate (NMDA) receptor encephalitis 10/25/2005 Developmental delay Intractable seizure disorder (HCC) 10/25/2005 Low blood pressure Movement disorder 10/25/2005 Syncope Urinary incontinence Vitamin D deficiency PAST SURGICAL HISTORY Procedure Laterality Date CRANIOTOMY PARTIAL/SUBTOTAL HEMISPHERECTOMY Right 05/26/2018 Frontal NEUROSTIM PETR W/ REPROGRAM N/A 02/05/2018 FAMILY HISTORY Problem Relation Age of Onset other (NMDA Encephalitis) Sister Social History Tobacco Use Smoking status: Never Smokeless tobacco: Never Current Outpatient Medications Medication Sig Dispense Refill THERAPEUTIC-M 9 mg iron-400 mcg tablet Take 1 tablet by mouth once daily. Cholecalciferol, Vitamin D3, (VITAMIN D) 25 mcg (1,000 unit) cap Take 2 capsules by mouth once daily. 60 capsule 11 OXcarbazepine ER (OXTELLAR XR) 300 mg tablet Take 7 tablets by mouth daily at bedtime. 210 tablet 5 topiramate XR (QUDEXY XR) 200 mg cap(s) Take 4 capsules by mouth daily at bedtime. [address] (DEPAKOTE) 500 mg EC tablet Take 2 tablets by mouth twice daily. 120 tablet 11 diazePAM (VALTOCO) 20 mg/2 spray (10mg/0.1mL x2) nasal spray Use 2 Sprays in the nose as needed (For seziures longer than 3 minutes or 3 seizures in 30 minutes.). 4 Each 2 ibuprofen (MOTRIN) 200 mg tablet Take 2 tablets by mouth every 6 hours as needed for Pain or Fever. docusate sodium (COLACE) 100 mg capsule Take 1 capsule by mouth twice daily. 30 capsule 0 therapeutic multivitamin (THERA VITAMIN) tablet Take 1 tablet by mouth once daily. (Patient not taking: Reported on 05/02/2022) 360 tablet 0 multivitamin with folic acid (THERA) 400 mcg Take 1 tablet by mouth once daily. (Patient not taking: Reported on 01/27/2022) 360 tablet 0 No current facility-administered medications for this visit. ALLERGIES Allergen Reactions Bees Anaphylaxis History: No pediatric history on file. PHYSICAL EXAMINATION: Overall unchanged from last exam. GENERAL: well developed, no acute distress, not dysmorphic HEAD: normocephalic EYES: clear, no drainage EARS: normal external ear NOSE: no erythema or exudate OP: no lesions, moist mucous membranes CHEST & LUNGS: no retractions CV: extremities warm and well-perfused GI/: Deferred EXTREMITIES: no tenderness/swelling, no cyanosis, no clubbing and no edema/varicosities SKIN: normal color, texture and turgor. No rashes or neurocutaneous lesions noted. NEUROLOGIC: In general this is a healthy-appearing patient who appears to be the stated age and is in no acute distress. The patient is quiet, slow processing overall but responds appropriately to questions. Visual pryor are full to confrontation and extraocular movements are intact with no nystagmus. Facial strength is full and symmetric. Able to raise arms and legs at least against some resistance when asked, without evidence of focal weakness. No obvious tremor, waxy flexibility, seizures, asterixis, negative myoclonus, fasciculations, rigidity, incoordination, dystonia, dysmetria, or other dyskinesias appreciated during the exam. Responds to tactile stimulation of all distal extremities. Reflexes 2+ and symmetric. Normal gait. No signs of meningismus. Sphincter function reported as normal. IMPRESSION : Sara is an 16 year old male with NMDARE, stable on rituximab. RECOMMENDATIONS: 1) Continue rituximab therapy per [place] protocol. 2) Will check serum NMDA IgG titer with next pre-infusion labs. 3) Continue follow up with Peds Epilepsy and Psych. 4) Primary care referral. Monitor creatinine, platelets. Reminded to obtain COVID, flu, any other non-live catch-up vaccinations. [place] time to receive any vaccinations is 3-5 months after a rituximab infusion. 5) LLE ultrasound, x-ray, Ortho referral due to pain. 6) Continue rehab therapies. 7) Advised family to follow up with outside Drug Inspector Dr. Julia Luther as soon as possible 8) Follow up with me in about 6 months, or sooner as needed. Sincerely, Michael Roper MD Staff Pediatric Neurologist Pediatric Neuroimmunology Specialist [facility] A copy of this consultation report will be forwarded to all appropriate parties. I spent a total of 60 minutes on the date of the service which included preparing to see the patient, [id number] patient care, completing clinical documentation, obtaining and/or reviewing separately obtained history, performing a medically appropriate examination, counseling and educating the patient/caregiver and ordering medications, tests, or procedures. Emergency return precautions, anticipatory guidance, counseling, education, support were provided to the patient/caregiver as appropriate. All questions were answered in full. Patient/caregiver verbalized understanding and agreement regarding the plan of care. documented in this encounter [facility] 04-23-2022 Miscellaneous Notes Lab order faxed to requested fax number. Confirmed fax received. Funmilayo Silva RN ORDERS Person requesting order: Yamilet Phone number: [phone] Order being requested: CMP/ ASM/ Vit D Facility: [facility] Email: Patient of Dr. Haider documented in this encounter [facility] 03-26-2022 Miscellaneous Notes Date of service: March 26, 2022 Sara Pichardo is a 16 year old. Last seen in office visit with Dr. Haider on 02/26/22 Now requesting multi vitamin refill -Prescription appropriate, please file and document electronically. Thank you. -Routed to Dr. Meliza Darnell RN Prescription Refill: Requested by: pharmacy Please E-Scribe Caller Contact Number: Pharmacy Name: [facility] Pharmacy Number: [id number] Generic/ brand: 30 or 90 day supply requested: 90 Last appointment: 02/26/2022 Next Appointment: None Patient of Dr. Haider documented in this encounter [facility] 03-24-2022 Miscellaneous Notes Date of service: March 24, 2022 Sara Pichardo is a 16 year old Last seen by Dr. Haider on 02/26/22 Now requesting Vitamin D3 refill - pharmacy requesting new script Prescription appropriate, please file and document electronically. Thank you. Routed to Dr. Meliza Silva RN Medication Concern Person Calling [facility] via fax Name of medication vitamin D3 Concern with medication clarification; Forwarded to nurse. Patient of Dr. Haider documented in this encounter [facility] 02-26-2022 Instructions Kentrell Smith MD - 02/26/2022 2:46 PM EDT PLAN: Tests/Labs: Comprehensive metabolic Profile and levels of ASMs and Vitamin D at end of March 2022 Medications: 1. Continue Oxtellar 300mg, 7 capsules at dinner time. 2. Reduce Topiramate XR to 4 pastillas at dinner time 3. Continue Depakote DR 500mg, 2 tablets in the morning and 2 tablets with dinner 4. Seizure rescue plan: Valtoco, 2 sprays in one nostril for seizures lasting more than 3 minutes. 5. Continue vitamin D 1000IU, 2 pills every day and adult multivitamin Return visit: May 06, 2022 at 7:40pm virtual visit Kentrell Smith MD documented in this encounter [facility] 02-26-2022 History of Present illness Narrative [facility] Section of Pediatric Epilepsy/Neurology Epilepsy Center, Neurological [place] Date of Service: 02/26/2022 RETURN VISIT NOTE HISTORY SINCE LAST VISIT: The patient has returned for follow-up regarding generalized and focal epilepsy, well controlled movement disorder, mild to moderate cognitive impairment and behavioral problems secondary to acute encephalitis of unknown etiology at age 1 years. He also has syncope and low blood pressure.Also concern for psychogenic spells and panic attacks. Sara can with his mother who speaks Gambian. Interview in Gambian. Similar illness that occurred in his 2 year old sister on July 2015 has clarified that Sara illness could have been also NMDA encephalitis. Sara sister is completely recovered from her illness as February 2017 and off of steroids. Sara had a surgical resection right mesial frontal corticeptomy on 05/26/[address] Tomi Maki. 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 - Subpial gliosis. - Focal perivascular white matter atrophy. Neuropsych testing March 2022: Full IQ extremely low (see office visit from 04/01/2021) [place], his mother, has the power of trademark attorney for Sara. Seizure brake though due to adherence problems and covid infection in August 2021. 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 He recoved plasmapherisis, IVIG, steroids and Rituximab. Interval update: This is a 16 year old right handed male who was last seen by me on September 2021. I saw him with clinical seizures in the hospital on 12/16/2021, then he was transferred to the PICU for intensive immunotherapy. He continues to have seizures documented on EEG until 12/22/2021. Seizures recorded were mainly out of sleep. Mother repost no seizures since he was discharged home either during the day or night. He is taking topiramate, Depakote and Trileptal. He has tremor in the hands since he is on Depakote. Sara has worsening of memory problems since the relapse of NMDA encephalitis. He had a Neuropsych testing done today. He saw Dr Roper. Last Rituximab in 01/27/2022. Next one in 6 months. He has dystonic posturing of the left leg intermittently since August 2021 but now he is reporting bony pain and tiredness. He will get therapies: speech, occupational and physical. Records reviewed: medical chart, previous clinic and test reports, and interim phone calls and notations. [facility] EEGs 12/11-. showed a variety of seizures. Latest Reference Range & Units 12/25/21 21:10 01/21/22 09:40 Valproic Acid 50.0 - 100.0 ug/mL 59.3 85.1 10Hydroxycarbazepine 3.0 - 35.0 ug/mL 14.5 29.2 Latest Reference Range & Units 12/25/21 21:10 01/21/22 09:40 Topiramate 5.0 - 20.0 ug/mL 9.7 17.7 Major health event/concerns since last visit: Hospitalized for emergent VEEG in November 2021. Side effects that could be medication related: none Previous antiepileptic medications trials: Phenytoin, clonazepam and Depakote eas efficacious for seizures but caused abdominal pain and GI bleeding when he was young , Vimpat had lack of efficacy at dose 300mg/day, Xcopri lack of efficacy DEVELOPMENT/SCHOOL/PSYCHOSOCIAL UPDATE: As and Bs at school which is a significant improvement. Overall Sense of Well Being Since Last Visit: unchanged Driving Status: Not driving. Medications listed as of 02/26/2022 [SEE PLAN BELOW FOR CHANGES MADE TODAY]: Current Outpatient Medications Medication Sig guanFACINE (INTUNIV) 1 mg ER 24 hr tablet(s) Take 1 tablet by mouth once daily. diazePAM (VALTOCO) 20 mg/2 spray (10mg/0.1mL x2) nasal spray Use 2 Sprays in the nose as needed (For seziures longer than 3 minutes or 3 seizures in 30 minutes.). topiramate XR (QUDEXY XR) 200 mg cap(s) Take 5 capsules by mouth daily at bedtime. divalproex DR (DEPAKOTE) 500 mg EC tablet Take 2 tablets by mouth twice daily. OXcarbazepine ER (OXTELLAR XR) 300 mg tablet Take 7 tablets by mouth daily at bedtime. cholecalciferol, Vitamin D3, (VITAMIN D3) 1,250 mcg (50,000 unit) cap capsule Take 1 capsule by mouth one time a week. OLANZapine orally disintegrating (ZYPREXA ZYDIS) 5 mg disintegrating tablet Take 1 tablet by mouth twice daily as needed (agitation). (Patient not taking: Reported on 01/27/2022) multivitamin with folic acid (THERA) 400 mcg Take 1 tablet by mouth once daily. (Patient not taking: Reported on 01/27/2022) ibuprofen (MOTRIN) 200 mg tablet Take 2 tablets by mouth every 6 hours as needed for Pain or Fever. (Patient not taking: Reported on 01/27/2022) docusate sodium (COLACE) 100 mg capsule Take 1 capsule by mouth twice daily. No current facility-administered medications for this visit. Vital Signs - 02/26/2022: BP 123/55 Pulse (!) 56 Temp 36.7 C (98 F) Resp 20 Ht 173.4 cm (5' 8.25 ) Wt 73.9 kg (163 lb) SpO2 98% BMI 24.60 kg/m . PHYSICAL EXAMINATION: General physical examination remains with in normal limits. Sara is alert and active, and in no distress. NEUROLOGICAL EXAMINATION: Neurological examination remains with in normal limits. 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 generalized and focal epilepsy, well controlled movement disorder, moderate to severe cognitive impairment (extremely low IQ) and behavioral problems secondary to acute encephalitis of unknown etiology at age 1 years 2. Mild Vitamin D deficiency 3. New onset nocturnal urinary incontinence 4. Behavioral issues improved 5. Depression 6. 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 On recovery mode now, memory and cognition affected from the last encephalitis. Neuropsych testing done today. Plan to slowly anai topiramate hopping to improve cognition. PLAN: Tests/Labs: Comprehensive metabolic Profile and levels of ASMs and Vitamin D at end of March 2022 Medications: 1. Continue Oxtellar 300mg, 7 capsules at dinner time. 2. Reduce Topiramate XR to 4 pastillas at dinner time 3. Continue Depakote DR 500mg, 2 tablets in the morning and 2 tablets with dinner 4. Seizure rescue plan: Valtoco, 2 sprays in one nostril for seizures lasting more than 3 minutes. 5. Continue vitamin D 1000IU, 2 pills every day and adult multivitamin Return visit: May 06, 2022 at 7:40pm virtual visit The possible risks, benefits, and alternatives to this plan were discussed, including a possibility of breakthrough seizures or worsening with changes in medications. The family is advised to call my office or seek urgent care if there is any worsening or new symptom of concern. I again went over the general epilepsy education and seizure precautions with the family. I spent a total of 60 minutes on the date of the service which included preparing to see the patient, [id number]-rzep patient care, completing clinical documentation, obtaining and/or reviewing separately obtained history, performing a medically appropriate examination, counseling and educating the patient/family/caregiver, ordering medications, tests, or procedures, communicating with other HCPs (not separately reported), independently interpreting results (not separately reported), and communicating results to the patient/family/caregiver. Kentrell Smith M.D. Staff, Epilepsy Center/Neurology, Neurological [place] [facility], Mail code - [id number] [facility] [address] CC: Records via digital FAX or [employer] To use this Smartlink, specify the provider ID whose address you want to display, e.g., .PROVADDR[1 (where 1 is the provider ID). Michael Roper [address] [facility] [address] The family of Sara Mobley[address] [facility] [address] documented in this encounter [facility] 01-27-2022 History of Present illness Narrative Pediatric Neurology Outpatient Clinic [facility], [facility] Date of Service: 01/27/2022 CC: NMDA-R encephalitis, seizures Interval History: 16 year old male appears in person today, accompanied by Mom. This is a follow up visit with me. Received steroids, IVIG, PLEX as inpatient with improvement. Received Evusheld in hospital. 2nd dose of 1st cycle of rituximab went well, no issues. Discussed with Mom will plan for every 6 month infusions unless clinical worsening occurs. Per Mom, patient doing much better on current treatments, no seizures, abnormal movements, psychotic breaks, or other concerns for relapse since discharge from hospital. Mom concerned about how he will be able to return to school. Will refer for formal neuropsych testing to help guide schooling. Mom now has decision-making guardianship of Sara. Seeing Dr. Gibbs for seizures and Dr. Vaz for behavioral management. Labs overall reassuring. Will plan to repeat serum NMDA level with next set of pre-ritux labs in about 6 months. MRI brain, whole body PET MRI were stable. Will need COVID vaccines and flu shot in 3-5 months. No other new or worsening neuro symptoms reported. See previous notes for full HPI details. ROS: A comprehensive review of systems was otherwise negative. HISTORY REVIEWED: PAST MEDICAL HISTORY Diagnosis Date Adolescent behavior problems Wqou-W-dnhhbv-D-aspartate (NMDA) receptor encephalitis 10/25/2005 Developmental delay Intractable seizure disorder (HCC) 10/25/2005 Low blood pressure Movement disorder 10/25/2005 Syncope Urinary incontinence Vitamin D deficiency PAST SURGICAL HISTORY Procedure Laterality Date CRANIOTOMY PARTIAL/SUBTOTAL HEMISPHERECTOMY Right 05/26/2018 Frontal NEUROSTIM PETR W/ REPROGRAM N/A 02/05/2018 FAMILY HISTORY Problem Relation Age of Onset other (NMDA Encephalitis) Sister Social History Tobacco Use Smoking status: Never Smokeless tobacco: Never Current Outpatient Medications Medication Sig Dispense Refill diazePAM (VALTOCO) 20 mg/2 spray (10mg/0.1mL x2) nasal spray Use 2 Sprays in the nose as needed (For seziures longer than 3 minutes or 3 seizures in 30 minutes.). 4 Each 2 topiramate XR (QUDEXY XR) 200 mg cap(s) Take 5 capsules by mouth daily at bedtime. [address] (DEPAKOTE) 500 mg EC tablet Take 2 tablets by mouth twice daily. 100 tablet 11 OXcarbazepine ER (OXTELLAR XR) 300 mg tablet Take 7 tablets by mouth daily at bedtime. 630 tablet 1 cholecalciferol, Vitamin D3, (VITAMIN D3) 1,250 mcg (50,000 unit) cap capsule Take 1 capsule by mouth one time a week. 6 capsule 0 guanFACINE (INTUNIV) 1 mg ER 24 hr tablet(s) TAKE 1 TABLET BY MOUTH EVERY DAY 30 tablet 2 OLANZapine orally disintegrating (ZYPREXA ZYDIS) 5 mg disintegrating tablet Take 1 tablet by mouth twice daily as needed (agitation). 20 tablet 2 multivitamin with folic acid (THERA) 400 mcg Take 1 tablet by mouth once daily. 360 tablet 0 ibuprofen (MOTRIN) 200 mg tablet Take 2 tablets by mouth every 6 hours as needed for Pain or Fever. docusate sodium (COLACE) 100 mg capsule Take 1 capsule by mouth twice daily. 30 capsule 0 No current facility-administered medications for this visit. ALLERGIES Allergen Reactions Bees Anaphylaxis History: No pediatric history on file. PHYSICAL EXAMINATION: GENERAL: well developed, no acute distress, not dysmorphic HEAD: normocephalic EYES: clear, no drainage EARS: normal external ear NOSE: no erythema or exudate OP: no lesions, moist mucous membranes CHEST & LUNGS: no retractions CV: extremities warm and well-perfused GI/: Deferred EXTREMITIES: no tenderness/swelling, no cyanosis, no clubbing and no edema/varicosities SKIN: normal color, texture and turgor. No rashes or neurocutaneous lesions noted. NEUROLOGIC: In general this is a healthy-appearing patient who appears to be the stated age and is in no acute distress. The patient is quiet, better response to questions than when last evaluated during inpatient admission. Visual pryor are full to confrontation and extraocular movements are intact with no nystagmus. Facial strength is full and symmetric. Able to raise arms and legs at least against some resistance when asked, without evidence of focal weakness. No obvious tremor, waxy flexibility, seizures, asterixis, negative myoclonus, fasciculations, rigidity, incoordination, dystonia, dysmetria, or other dyskinesias appreciated during the exam. Responds to tactile stimulation of all distal extremities. Reflexes 2+ and symmetric. Normal gait. No signs of meningismus. Sphincter function reported as normal. IMPRESSION : Sara is a 16 year old male presents for follow up after recent NMDA-R encephalitis relapse. Clinically he is much improved with a non-focal exam. Will continue rituximab therapy. RECOMMENDATIONS: 1) Continue rituximab therapy plan every 6 months per [place] protocol. 2) Will check serum NMDA titers with next pre-infusion labs. 3) Follow up with Peds Epilepsy and Psych. 4) Neuropsych testing to establish new baseline. 5) Mom requesting additional speech therapy referral for help with expression and articulation. 6) Will need COVID, flu, any other catch-up vaccinations in 3-5 months. 7) Follow up with me in about 3 months, or sooner as needed. Sincerely, Michael Roper MD Staff Pediatric Neurologist Pediatric Neuroimmunology Specialist [facility] A copy of this consultation report will be forwarded to all appropriate parties. I spent a total of 40 minutes on the date of the service which included preparing to see the patient, ugjz-[id number] patient care, completing clinical documentation, obtaining and/or reviewing separately obtained history, performing a medically appropriate examination, counseling and educating the patient/caregiver and ordering medications, tests, or procedures. Emergency return precautions, anticipatory guidance, counseling, education, support were provided to the patient/caregiver as appropriate. All questions were answered in full. Patient/caregiver verbalized understanding and agreement regarding the plan of care. documented in this encounter [facility] 01-27-2022 Nurse Note Assessment interrupted by medical provider, unable to complete nursing assessment. documented in this encounter [facility] 01-22-2022 History of Present illness Narrative Mom brought copy of guardianship letter to infusion appt From the Court of Common [place], [place] Probate Division Letter states: Paulina Grossman is the appointed guardian of Karime Garcia an Incompetent Guardian's freeman are: All freeman conferred by the laws of [place] and rules of this Court over the [place]'s Person No limitations listed Guardian's freeman, until revoked, are for an Indefinite time period Copy of letter to scanning Steffanie Lopez RN Mandrel Puller, Pediatric Neurology documented in this encounter [facility] 01-17-2022 History of Present illness Narrative Rituximab 2nd infusion authorized but not scheduled Called Marine Valladares -- no answer on cell phone page sent requesting assistance is scheduling Called Liliana Gaston and requested a return call to assist in scheduling infusion joseph Called [facility] - spoke with Sandi (charge nurse) and scheduled infusion appt for Thursday01.21.22 at 0900 for 8 hours initial infusion rate Called mom through GPS regulatory scientist and left detailed message advising of appt on for Rituximab infusion at 0900; requested a return call upon receipt of message to discuss appt -- see 01.17.22 telephone encounter Steffanie Lopez RN Mandrel Puller, Pediatric Neurology documented in this encounter [facility] 01-13-2022 Miscellaneous Notes Signature completed by Dr. Keyes and letter forwarded to requested fax number via Modti. Funmilayo Silva RN Per Dr. Keyes: Please provide letter stating Depakote can be given at 9 am on 01/09 and 01/10 until medication plan and medication administration times can be facilitated. Letter composed and forwarded to Dr. Keyes for signature via DocuSign. Spoke to Yosef school nurse for fax number. She stated that father was able to come to school and administer today's dose of medications. Funmilayo Silva RN Per request from Юлия Barakat: Please phone school nurse, Yosef, at [facility] at to discuss medication compliance. 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 Medication cannot be given without verbal approval and a completed MAR. Via regulatory scientist, Called Ms. Garcia, did not receive answer. Message left, will return call. Spoke to WILLEM Dominguez and advised of situation. Will discuss with Dr. Haider. Agreed that medication will have to be given in home until plan in place. Left message with school nurse stating medication to be given by mother and to return medication. Requested she phone mother. Funmilayo Silva RN documented in this encounter [facility] 01-13-2022 Miscellaneous Notes Signature completed by Dr. Keyes and forwarded to requested fax number for school. Father/school nurse advised of plan. Funmilayo Silva RN Revised letter sent to Dr. Keyes for signature via DocuSign. Funmilayo Silva RN Spoke to [employer] school nurse and Genaro Pichardo and advised that letter will be sent to continue Divalproex at 9 am and 9 pm until further notice. Verbalized understanding. Funmilayo Silva RN [employer] school nurse calling back; she can be reached at [phone]. General call : Full name of person calling: Genaro pichardo Relationship to patient: self Phone # : [phone] Reason for call: dad has question regarding keppra meds for pt school Patient of Dr. haider documented in this encounter [facility] 01-08-2022 Miscellaneous Notes Social Work spoke with Mother would expressed concern regarding Sara receiving medications at school. Mother reports pt current receives Depakote at 09:00 and 21:00. Mother requested pt be allowed to receive am dose at school, because he is in school at 9am. Mother reports she leaves the house at 5:30-6:00am, and does not want to give medication that early, because then he will have to get medications earlier in the evening he maybe sleepy, and she may not always be home from work. Mother reports pt's younger sister is able to help Sara get on the bus in the morning, however does not feel comfortable having sister administer pt's medications. School requires letter from [employer] allowing for medication administration. is currently on of the office, and Social Work spoke with Dr. Keyes, covering physician who is a agreeable to have medications administered at school. Physician nurse will draft letter and send to school nurse. Social work will spoke with Dr. Haider upon her return. Social Work will continue to follow. MISA Humphrey documented in this encounter [facility] 01-02-2022 Miscellaneous Notes Called WILLEM Redman and advised that OT was to be provided at school as part of his IEP. Via regulatory scientist, Ms. Garcia advised that OT services were part of his IEP and services were to be provided at school. She verbalized understanding and agrees with plan. Funmilayo Silva RN General call : Full name of person calling: Paulina Garcia Relationship to patient: mother Phone # : [phone] (home) Reason for call: referral for occupational therapy Patient of Dr. Haider documented in this encounter [facility] 12-25-2021 Miscellaneous Notes Signature completed by Dr. Haider and forwarded to email on file and WILLEM Humphrey RN Letter sent to Dr. Haider for signature via Modti. Funmilayo Silva RN Letter looks good Thanks Kentrell Smith MD Please review, revise or approve the following requested letter for school: To Whom It May Concern I have had the pleasure for Sara Pichardo since November of 2012 in the treatment and management of his epilepsy. Sara carries the diagnosis of generalized epilepsy and is currently managed with medications. Based on his diagnosis, the following are guidelines to allow him to attend school: It is recommended that Sara attend school, that he not be allowed to participate in sports/gym class, and cannot ride the bus without trained personnel in the event of a seizure. He will need to have seizure rescue medication on bus and at school. It is recommended that an IEP meeting be held as soon as possible to establish Sara's current academic strength and weaknesses. Please consider this request in the best interest of Sara and his family. Please provide any additional supports to continue to allow him to achieve academic growth. Please call the office if you have any additional concerns. Regards, Routed to Dr. Meliza Silva RN ----- Message from Kentrell Smith MD sent at 12/20/2021 4:58 PM EDT ----- Sanya Avila: We dont know so for now no sports, no bus alone. He can go to school. Thanks Kentrell Smith MD ----- Message ----- From: SUNIL Humphrey Sent: 12/20/2021 2:59 PM EDT To: Kentrell Smith MD, Funmilayo Silva RN Hi- I am on the phone in a meeting today with Board of DD and school regarding Sara. School is asking about any restrictions he will have and if he will be able to return to in person classes when he is discharged? Are you able to write a letter stating any accommodations he will needs at school? They are asking about gym class, can he participate? Can be participate in sports? Is he safe to ride the bus? Will he return to his baseline after is PLEX treatment? Will he be seizure free? He is due for new IEP assessment - can he be assess upon returning to school? Also - school wants to make sure he has a Valtoco at school, on the bus and at home. Юлия Jordan documented in this encounter [facility] 12-20-2021 Miscellaneous Notes Forms completed and sent via [employer]. Michelle Darnell RN Form routed to Dr. Haider via [employer] for completion. Michelle Darnell RN SAP action plan received via email from unit. Funmilayo Silva RN documented in this encounter [facility] 12-16-2021 Miscellaneous Notes Images from the original note were not included. Spoke to [facility] pharmacist. Rx was sent to pharmacy on 12/10. Rx was NOT cancelled. Pharmacist reported two days supply was given to family on 12/10 pending stock. Balance of rx filled on 12/11 and not picked up by family. On 11/04, patient was discharged. [facility] records show bedside delivery of 630 tablets (3 month supply). Routed to Dr. Haider as TESSA Silva RN Per staff message from Dr. Haider dated 12/14/21: Sara is in the hospital with increased seizures. Mother said he missed two doses of Oxtellar at home because she waited to the last minute to fill the prescription. When she arrived to the pharmacy she was told the Oxtellar was cancelled by us and then that they did not have it in stock. Can you call the pharmacy and find out what heppened? Funmilayo Silva RN documented in this encounter [facility] 12-09-2021 Miscellaneous Notes Date of service: December 09, 2021 Sara Pichardo is a 16 year old Last seen by Dr. Haider on 10/03/21 Now requesting oxcarbazepine ER refill Prescription appropriate, please file and document electronically. Thank you. Routed to Dr. Meliza Silva RN Prescription Refill: PT OUT OF MEDS Requested by: parent Please Call in Caller Contact Number: [phone] (home) Pharmacy Name: [facility] Pharmacy Number: [phone] Generic/ brand: generic 30 or 90 day supply requested: 90 Last appointment: 10/03/21 Next Appointment: none Patient of Dr. haider documented in this encounter [facility] 11-29-2021 Miscellaneous Notes Sara had a seizures yesterday with cyanosis, trembling and then he was acting scared. He got rescue medication. He also has been displaying unusual behavior and anger spells when he does not get what he wants like getting his mother phone. He is also running into the middle of the strets with no regards of the cars. He has been screaming to his siblings. he has insmonia also He was taken to the ER. In the ER he was told to call neurologist. Plan: If behavior gets worse, to take to ER Valtoco was refill Increase Xcopri to 100mg at bedtime, prescription updated For insomnia, melatonin 5mg at bedtime. Kentrell Smith MD documented in this encounter [facility] 11-28-2021 Miscellaneous Notes SURVEY INFORMATION Medical/Nurse Metaphysics Teacher: Jameel Winkler Registered Nurse: Kami Sandoval 1. Your discharge instructions are important in guiding you through the recovery process. Is there anything I could help you clarify on your discharge instructions? (Standard Question) No 2. Do you have a follow up appointment related to your hospital stay scheduled within the next 30 days? (Standard Question) Yes 3. Since you have been home, have you noticed any worsening of your seizures or events? (Red Flag Question) Yes, Patient has noticed worsening of seizures or events MA/SN Notes: Pt mother states that pt had a seizure at night 4. Many patients have concerns about their medications once they are home. Do you have any questions about getting or taking your medications? (Standard Question) No 5. Do you have any new or different symptoms? (Standard Question) Yes MA/SN Notes: Pt is behaving different , very irritated and uncontrollable 5b. Does patient have priority symptoms that require clinical intervention? (Question only asked by RN if new or worsening symptoms) No priority symptoms, but patient does have new or different symptom NOC Clinical Summary: spoke with mom paulina today that is very concerned regarding son's s/s: mom states pt has had a seizure thursday night and last night: seizures are not worse in regards to lasting longer they are about the same: pt dx with encephalitis: however mom is noticing pt has loss of appetitie, more shaky, angry , and confused: pt unable to tell mom her name, but knows where he is and surroundings. mom states s/s are not new has been experienced behavioral issues and confusion at times prior to hospitalizations. but mom feels she cannot control son at this point would like further suggestions as to what is best to do. mom declined triage at this time, son making it difficult for her to talk. local driver may be needed. however PD nurse repeated back to mom her concerns and advised that would message would be sent to dept. mom verbalized understanding. message routed Neuro Ep call back Kami Sandoval RN documented in this encounter [facility] 11-28-2021 Miscellaneous Notes Via regulatory scientist, spoke to Ms. Garcia. See telephone encounter dated 11/26/21. Funmilayo Silva RN I agree with Юлия. We can not admit him because of sporadic seizures either. It is a difficult situation. I dont know if psych will take him with a baseline medical problem being epilepsy. Thanks Kentrell Smith MD General call : Full name of person calling: Jose,Paulina Relationship to patient: mom Phone # : [phone] (home) Reason for call: Call from mom requesting social work help to arrange rehab because he runs in street, doesn't eat and he is confused. Patient of Dr. Haider documented in this encounter [facility] 11-28-2021 Miscellaneous Notes Spoke to Ms. Pichardo and advised per Dr. Haider. She verbalized understanding and agrees with plan. Funmilayo Silva RN I think that she should take Sara to the ER. I dont think he qualified to be in a facility from his seizures and current symptoms but the questions about his behavior is for Dr vaz. I am not sure if he qualified for a Psychiatric facility. He does not qualify for [facility] not the epilepsy unit. Most likely she will have to take care of him at home. I am including Dr Vaz in this message to get her opinion. Kentrell Smith MD Neuro Peds Epilepsy Care Coordination Post-seizure/Medication Concerns/Side Effects Date of service : November 27, 2021 Sara Pichardo is a 16 year old. Last seen by Dr. Haider in office visit on 10/03/21 Now ~ Ms. Pichardo reporting frustration with Sara's behavior. Reporting running away from home. Mom afraid he will get run over with car. Aggressive behavior lasting 20 minutes. Able to calm down but behavior returns. Mom would like to see if he can go to facility for safety. Reports seizure on Thursday while sleeping lasting two minutes. Returned to baseline. IVIG infusion scheduled for 12/04/21. Current weight : 79 kg Current AEDs ( mg/kg/d) / recent drug level: Topiramate XR 200 mg cap ~ 800 mg / Level on 11/19/21 was 13.7 Cenobamate 50 mg tab ~ 50 mg Oxcarbazepine ER 300 mg ~ 2100 mg / Level on 11/19/21 was 36.5 Recent changes/side effects : Reporting continued aggressive behavior Main concern : - Mom concerned with patient safety - Inquires if he can go to facility for treatment Routed to Dr. Meliza Silva RN Mother, Paulina Garcia, called stating the patient is worse, confused, angry, crying, and has encephalitis. Please call back [phone]. Please have local driver on the call. General call : Full name of person calling: JosePaulina Relationship to patient: mom Phone # : [phone] (home) Reason for call: Patient is confused and very angry, and crying non stop. He also couldn't remember moms name Patient of Dr. Haider documented in this encounter [facility] 11-18-2021 Miscellaneous Notes Sara Pichardo is a 16 year old right-handed male admitted to the PMU with increased agitation/behavioral dysregulation in the setting of + Serum /+ CSF NMDA. 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 CSF revealed pleocytosis (TNC 6), 1 RBC, 33 protein and 65 glucose. IgG index was mildly elevated at 0.62, and OCBs were not present in the CSF. ENS-2 & ENC-2 revealed + NMDA-R antibody with an immunofluorescence titer of 1:32. He has never received immunosuppressive therapy in the past. He is now readmitted to the PMU in the setting of increasing behavioral disturbance at home. Since the last 1-2 weeks, the patient has been experiencing insomnia, sound sensitivity, extreme nervousness and anxiety, with skin picking behavior and confusion. He usually has seizures once every few weeks, but last seizure was reported last night, and another one two days back. He has a remote history of acute encephalitis of unclear etiology at age 1. Due to remote hx of encephalitis of unclear etiology, and now coming with relatively acute change in behavior in the setting of CSF and serum evidence of NMDA-R Ab, it is reasonable to consider the possibility of NMDA encephalitis. The patient has never received immunotherapy in the past, thus it might be worthwhile to consider it during this admission. However, it is essential to rule-out infectious etiology as cause for patient symptoms and the relative increase in seizure frequency. Review of recent labs including CBC and BMP did not show evidence of infection. - Please obtain UA, urine tox screen, COVID-19 test, RVP - Consider starting IVMP 1g x3 days (will prefer to discuss with family in AM prior to initiating high-dose steroids); also rule-out infectious etiology prior to initiating steroids - Consider IVIG (will discuss in AM prior to starting this) - The pediatric neurology team will closely follow along - Seizure management per primary team (Epilepsy) Discussed with staff, Dr. Roper Please page [phone] for any questions or concerns Samantha Miller MD PGY-4 Pediatric Neurology 11/18/2021 7:26 PM documented in this encounter [facility] 11-18-2021 Miscellaneous Notes FYI. Pt to be admitted, abstract placed. Called Ms. Garcia, did not receive answer, message left. Will await call back. Michelle Darnell RN She can give Sara Melatonin 5 mg at 9pm. Sara needs to be seen by our neuroimmunologist. Dr Roper. His office should be setting an appointment for him soon. Thanks Kentrell Smith MD Neuro Peds Epilepsy Care Coordination Post-seizure/Medication Concerns/Side Effects Date of service : November 15, 2021 Sara Pichardo is a 16 year old. Last seen by Dr. Haider in office visit on 10/03/21. Now ~ Sara is not sleeping well for the last 3 nights. He is angry and aggressive and confused. She inquires about a treatment plan. Current weight : 78 kg Current AEDs ( mg/kg/d) / recent drug level: Cenobamate 50 mg ER tab ~ 50 mg Oxcarbazepine 300 mg tab ~ 2100 mg at hs / Level on 11/02/21 was 13.3 Topiramate 200 mg XR cap ~800 mg / Level on 11/02/21 was 11.3 For rescue Diazepam 20 mg spray Recent changes/side effects: No sleeping, is angry, confused and aggressive Main concern: Mrs. Garcia inquires about adjustment to treatment plan to address symptoms Routed to Dr. Meliza Silva RN/Michelle Darnell RN Medication Concern Person Calling Paulina Garcia - mother Name of medication AEDs Concern with medication Mother states the patient sleeps much of the day. Requesting medication adjustments. Please call back with Talent Acquisition Manager. Patient of Dr. Meliza Smith documented in this encounter [facility] 11-12-2021 Miscellaneous Notes I spoke with Sara's mother on the phone. He has not have additional seizures since discharge home but he is having neuropsychiatrict symptoms. I discussed that Sara will benefit from evaluation by Dr Roper in Pediatric Neuro Inflamation clinic. She accepted that option. She will also contact Dr Vaz to discuss psychiatric symptoms. Mother returned call. Please call back [phone], please have regulatory scientist on the line. Neuro Peds Epilepsy Care Coordination Post-seizure/Medication Concerns/Side Effects Date of service : November 11, 2021 Sara Pichardo is a 16 year old. Last seen by Dr. Haider in office visit on 10/03/21 Now ~ Ms. Garcia reporting behavior changes - hands shaking, hearing and seeing things, wakes up in panic. Reports he ran away, then returned and said see, I told you I could do it . Mom concerned r/t NMDA. Recommended f/u with Dr. Vaz. Medications reviewed. Denies missed doses. Current weight : 78 kg Current AEDs ( mg/kg/d) / recent drug level: Cenobamate 50 mg ~ 50 mg at hs Oxcarbazepine ER ~ 2100 mg at hs / Level on 11/02/21 was 13.3 Topiramate XR ~ 800 mg at hs / Level on 11/02/21 was 11.3 For rescue Diazepam 20 mg spray Recent changes/side effects : - Reporting behavior changes Main concern : - Inquires about CSF results - Inquires if symptoms r/t NMDA ======= Methods Specialist attempted to place call and was unable. Will return call. Via regulatory scientist, Called Ms. Maki, did not receive answer. Message left, will await call-back. Routed to Dr. Meliza Silva RN PATIENT UPDATE Person calling Paulina Garcia Phone number [phone] Update provided PT HAVING SIDE EFFECTS very confused lately Last appointment 10/03/[address] haider documented in this encounter [facility] 11-04-2021 Miscellaneous Notes Met with mom at bedside at the hospital we are going to increase the prozac to 20mg, continue intuniv 1 mg , add zyprexa 5 mg po every day as needed I will f/u in 1 month Fernando Vaz documented in this encounter [facility] 11-01-2021 Miscellaneous Notes Date of service: November 01, 2021 Sara Pichardo is a 16 year old. Last seen in office visit with Dr. Haider on 10/03/21 Now requesting Vit D refill -Prescription appropriate, please file and document electronically. Thank you. -Routed to Dr. Meliza Darnell RN Prescription Refill: Requested by: pharmacy Please E-Scribe Caller Contact Number: Pharmacy Name: [facility] Pharmacy Number: [phone] Generic/ brand: 30 or 90 day supply requested: 90 Last appointment: 10/03/2021 Next Appointment: 11/29/[address] Haider documented in this encounter [facility] 11-01-2021 History of Present illness Narrative Please route this encounter to the EMU Scheduling Pool ( P EMU ) or PMU Scheduling Pool ( P PMU ) through LOS & Follow up PHASE 1.0 AND 1.5 ORDER SYNOPSIS Patient: Sara Pichardo ([id number]) Best contact number: [phone] Insurance: Payor: [place] MEDICAID / Plan: [facility] MEDICAID / Product Type: Medicaid / Scheduling Team: Please call for adult patients: Sarah John ([phone]) Tesha Collier ([phone]) Renetta Everett([phone]) Narda Garcia([phone]) Please call for pediatric patients: Tesha Collier ([phone]) Renetta Everett ([phone]) Sarah John ([phone]) Narda Garcia([phone]) 11/01/2021 Admission Type PMU Pediatric Ketogenic Diet? No Number of Days requested 5 [facility] Admit Priority STAT PURPOSE 11/01/2021 Patient Being Considered for Epilepsy Surgery? No VEEG recommended to assess seizure burden, address new & concerning syymptom-sign complex, and/or clarify syndromic epilepsy diagnosis? Yes 11/01/2021 Sphenoidal monitoring No Electrode placement Standard Appointments and Tests EPIL VEEG ADMIT TO EMU/PMU Comments: 16 yo male with medically refractory focal epilepsy now with new seizure types and change in behavior. Serum autoimmune panel positive for NMDA. Admit to clarify seizure burden and etiology. Consultations None Please route this encounter to the EMU Scheduling pool ( P EMU ) or PMU Scheduling pool ( P PMU ) through LOS & Follow up Scheduling coordinators: For all VNS patients being scheduled for TIARA, please schedule VNS off/on office visits. documented in this encounter [facility] 10-29-2021 Miscellaneous Notes Via regulatory scientist, discussed medication compliance with mother and referred behavioral concerns to Dr. Vaz. She verbalized understanding. Funmilayo Silva RN Medication Concern Person Calling Paulina Garcia , local driver needed. Name of medication Xcopri Concern with medication Mother states the patients gets very angry about little things, is giving her a very hard time about taking his medications. Patient of Dr. Meliza Smith documented in this encounter [facility] 10-08-2021 Miscellaneous Notes Via regulatory scientist, Spoke with Ms. Garcia. Advised that she is unable to pickle sorter XCopri prescription from pharmacy. Spoke to pharmacy and advised that claim was processed and will need to order medication. Mother advised via regulatory scientist. Funmilayo Silva RN Via regulatory scientist, Called Ms. Garcia, did not receive answer. Message left, will await call-back. Funmilayo Silva RN Medication Concern Person Calling Jose,Juana (home) Name of medication new medication Concern with medication unsure Patient of Dr. Haider documented in this encounter [facility] 10-08-2021 Miscellaneous Notes Via regulatory scientist, Spoke to Ms. Garcia. She verbalized understanding and agrees with plan. Funmilayo Silva RN Via regulatory scientist, Called Ms. Garcia, did not receive answer. Message left, will await call-back. 10/08 Via regulatory scientist, Called Ms. Garcia, did not receive answer. Message left, will await call-back. Funmilayo Silva RN Per staff message from Dr. Haider dated 10/03/21: Please let the mother now that his vitamin D is very low so he needs to take Vitamin D jatin doses which I am prescribing to the pharmacy now. Spoke to: Funmilayo Sivla RN documented in this encounter [facility] 10-03-2021 Miscellaneous Notes Pharmacy notified and will advise family. Family notified with regulatory scientist. Advised to call office when Sara starts 25 mg tablets for further instructions. Funmilayo Silva RN Received approval for Xcopri from [facility]. Approval Dates: 10/03/21-10/03/22. REF #: [id number] Approval uploaded to [employer]. Signature completed and forwarded to requested fax number via [employer]. Will wait determination. Funmilayo Silva RN PA completed with office notes and sent via [employer] and forwarded to Dr. Haider for signature. Funmilayo Silva RN Images from the original note were not included. PA completed via Covermymeds. Follow up with insurance. Advised that no PA is on file. Transferred to pharmacy. Pharmacy confirmed no PA on file. Advised to complete on paper. Sending form to fax number for completion. Funmilayo Silva RN Prior Authorization Needed: Received by: Fax Requested by (pharmacy name): [facility] Phone number: [phone] Name of medication: Xcopri Strength and dosage: 14 x 12.5mg Insurance company name and phone #: CMM HAQUE: [id number] Patient of Dr. Haider documented in this encounter [facility] 10-03-2021 Instructions Kentrell Smith MD - 10/03/2021 11:11 AM EDT PLAN: Tests/Labs: Lab work today Medications: 1. Continue Oxtellar 3 capsules at dinner time. 2. Continue Topiramate XR a 4 pastillas at dinner time 3. Plan to Start Xcopri (cenobamate) as follows once he turns 16 year: week 1 and 2: take 12.5mg pill at dinner time for 2 weeks week 3 and 4: take 25mg pill at dinner time for 2 weeks weeks 5 and onward: take 50mg at dinner time and continue at this dose 4. Seizure rescue plan: Valtoco, 2 sprays in one nostril for seizures lasting more than 3 minutes. 5. Continue vitamin D 1000IU, 2 pills every day and adult multivitamin 6. Return visit: December 2021 7. No RedBull or any other energy drink. Kentrell Smith MD documented in this encounter [facility] 10-03-2021 History of Present illness Narrative [facility] Section of Pediatric Epilepsy/Neurology Epilepsy Center, Neurological [place] Date of Service: 10/03/2021 RETURN VISIT NOTE HISTORY SINCE LAST VISIT: The patient has returned for follow-up regarding generalized and focal epilepsy, well controlled movement disorder, mild to moderate cognitive impairment and behavioral problems secondary to acute encephalitis of unknown etiology at age 1 years. He also has syncope and low blood pressure.Also concern for psychogenic spells and panic attacks. Sara can with his mother who speaks Gambian. Interview in Gambian. Similar illness that occurred in his 2 year old sister on July 2015 has clarified that Sara illness could have been also NMDA encephalitis. Sara sister is completely recovered from her illness as February 2017 and off of steroids. Sara had a surgical resection right mesial frontal corticeptomy on 05/26/[address] Tomi Maki. 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 - Subpial gliosis. - Focal perivascular white matter atrophy. Neuropsych testing March 2022: Full IQ extremely low (see office visit from 04/01/2021) Aj his mother has the power of trademark attorney for Sara. Seizure brake though due to adherence problems August 2021. Interval update: This is a 16 year old right handed male who was last seen by me on June 2021. Sara has had an increment in seizures since late August 2021. He was seen in the ED and then hospitalized in the PEMU where two typical seizures were recorded. No changes in dose of TPM and OXC were done yet the levels of ASM were low despite the fact that he has been loosing weight. After 3 days of regular administration of ASM in the hospital, his levels returned to his traditional baseline which undeniably speaks about lack of compliance. His mother thinks that Sara takes his medications every day as she put them in a pill box for him. Sara confessed that he missed the doses of medications multiple times per week. Sara takes his medication at bedtime. Since DC home he has had 3 more seizures. On Thursday he had a big seizure which I saw on home video. He had a seizure on Thursday and another this morning but smaller. he has been taking energy drinks with caffeine. He is also exercising more. Xcopri was initially denied by the insurance and is now in process of authorization so it has not been started Records reviewed: medical chart, previous clinic and test reports, and interim phone calls and notations. VEEG august 2021: Sara is a 14 year old Right-handed male with mesial frontal epilepsy s/p R mesial frontal resection in 04/2018, mild to moderate cognitive impairment and behavioral problems, prior h/o encephalitis - presumably NMDAR encephalitis at age 1, who presented emergently on 09/19 with breakthrough seizures. Following surgery 04/2018, Sara was seizure free until April 2019. He has intermittently had breakthrough seizures since, mostly in the setting of medication noncompliance per history. He was admitted for continuous video-EEG monitoring from 09/19/21 to 09/21/21 assess seizure burden. This EEG evaluation supports the diagnosis of focal epilepsy based on both interictal and ictal EEG findings. Continuous slowing was seen over the right frontal region, which is consistent with his history of a s/p R mesial frontal resection in 04/2018. Rare, intermittent slowing was also seen arising from the right temporal region. In addition, rare sharp waves were seen arising from the right frontal region with a few sharp waves arising bifrontally right greater than left. A total of 2 brief EEG seizures were recorded that consisted of arousals from sleep with a scream and hypermotor movements of thrashing back and forth , pelvic thrusting and with each time rolling over to the left and onto his stomach. EEG was nonlocalizable, however evolved over the frontal and vertex region as seizure evolved. On admission, home antiepileptic medication regimen consisted of oxcarbazepine 900 mg twice daily and topiramate 400 mg BID (substituted for ER formulations) were continued. During his evaluation, blood levels of AEDs was less than usual on admission. However, prior to discharge, another blood level of oxcarbazepine and topiramate were drawn and were within therapeutic range, raising the question of compliance due to increase in seizure frequency. If levels are still low we will increase the dose. Otherwise will continue same AEDs doses for now. Dr. Keren Vaz was messaged regarding options for behavioral/aggression management and she recommended outpatient follow up on 10/01/21 at 4:00pm Patient to follow-up with Dr. Haider in 2-3 month Results for JACOB SARA Benito ( ) as of 10/03/2021 13:25 Ref. Range 12/17/2020 14:59 09/19/2021 18:11 09/19/2021 19:19 09/21/2021 11:47 10Hydroxycarbazepine Latest Ref Range: 3.0 - 35.0 ug/mL 24.3 15.1 29.3 Results for JACOBSARA ( ) as of 10/03/2021 13:25 Ref. Range 02/05/2020 09:02 12/17/2020 14:59 09/19/2021 19:19 09/21/2021 11:47 Topiramate Latest Ref Range: 5.0 - 20.0 ug/mL 16.6 13.6 8.4 16.8 Major health event/concerns since last visit: Hospitalized for emergent video-EEG in late August 2021.. Side effects that could be medication related: none Previous antiepileptic medications trials: Phenytoin, clonazepam and Depakote (caused abdominal pain) , Vimpat had lack of efficacy at dose 300mg/day DEVELOPMENT/SCHOOL/PSYCHOSOCIAL UPDATE: As and Bs at school which is a significant improvement. Overall Sense of Well Being Since Last Visit: unchanged Driving Status: Not driving. Medications listed as of 10/03/2021 [SEE PLAN BELOW FOR CHANGES MADE TODAY]: Current Outpatient Medications Medication Sig cenobamate (XCOPRI TITRATION PACK) 12.5 mg (14)- 25 mg (14) tablets in a dose pack Take 12.5 mg by mouth once daily for 2 weeks, then take 25 mg by mouth once daily for 2 weeks. OXcarbazepine ER (OXTELLAR XR) 600 mg tablet Take 3 tablets by mouth daily at bedtime. topiramate XR (QUDEXY XR) 200 mg cap(s) Take 4 capsules by mouth daily at bedtime. diazePAM (VALTOCO) 20 mg/2 spray (10mg/0.1mL x2) nasal spray Use 2 Sprays in the nose as needed (For seziures > 3 minutes or 3 seizures in 30 minutes.). cenobamate (XCOPRI) 50 mg tablet Take 2 tablets by mouth once daily for 180 days. FLUoxetine (PROZAC) 10 mg capsule Take 1 capsule by mouth once daily. guanFACINE (INTUNIV) 1 mg ER 24 hr tablet(s) Take 1 tablet by mouth once daily. cholecalciferol (VITAMIN D3) 1,000 unit tab tablet Take 2 tablets by mouth once daily. multivitamin with folic acid (THERA) 400 mcg Take 1 tablet by mouth once daily. senna (SENOKOT) 8.6 mg tab Take 1 tablet by mouth twice daily as needed. ibuprofen (MOTRIN) 200 mg tablet Take 2 tablets by mouth every 6 hours as needed for Pain or Fever. docusate sodium (COLACE) 100 mg capsule Take 1 capsule by mouth twice daily. No current facility-administered medications for this visit. Vital Signs - 10/03/2021: BP 128/59 Pulse 64 Resp 20 Ht 171 cm (5' 7.32 ) Wt 78.1 kg (172 lb 2.9 oz) SpO2 100% BMI 26.71 kg/m . PHYSICAL EXAMINATION: General physical examination remains with in normal limits. Sara is alert and active, and in no distress. NEUROLOGICAL EXAMINATION: Neurological examination remains with in normal limits. 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 generalized and focal epilepsy, well controlled movement disorder, moderate to severe cognitive impairment (extremely low IQ) and behavioral problems secondary to acute encephalitis of unknown etiology at age 1 years 2. Mild Vitamin D deficiency 3. New onset nocturnal urinary incontinence 4. Behavioral issues improved 5. Depression 6. syncope and low blood pressure EPILEPSY CLASSIFICATION: VEEG August 2021 Abnormal III (10-20 Scalp Electrodes, Awake) Interictal: Intermittent Slow, Regional, Right frontal and right temporal Sharp Wave, Regional, right frontal Ictal: EEG Seizure, Regional, vertex and central Hypermotor Seizure ASSESSMENT: Sara has had breakthrough seizures due to adherence issues. WE discussed ways to help Sara to adhere to treatment. We have documentation that when he takes his medications at the current doses he is seizures free as documented in previous notes and VEEG evaluations. We are changing his medication to dinner time to he can take his medications in from of parents at the dinner table. Yann has a extremely low IQ and he is and adult now so realistically he will need the constant support of his parents to be adherent to treatment. We discussed SUDED. More than many other medications, Sara needs to be consistent with taking his medications. We are sending an automminue panel to rule out presence of antibodies as Sara has lost weight. PLAN: Tests/Labs: Lab work today Medications: 1. Continue Oxtellar 3 capsules at dinner time. 2. Continue Topiramate XR a 4 pastillas at dinner time 3. Plan to Start Xcopri (cenobamate) as follows once he turns 16 year: week 1 and 2: take 12.5mg pill at dinner time for 2 weeks week 3 and 4: take 25mg pill at dinner time for 2 weeks weeks 5 and onward: take 50mg at dinner time and continue at this dose 4. Seizure rescue plan: Valtoco, 2 sprays in one nostril for seizures lasting more than 3 minutes. 5. Continue vitamin D 1000IU, 2 pills every day and adult multivitamin 6. Return visit: December 2021 The possible risks, benefits, and alternatives to this plan were discussed, including a possibility of breakthrough seizures or worsening with changes in medications. The family is advised to call my office or seek urgent care if there is any worsening or new symptom of concern. I again went over the general epilepsy education and seizure precautions with the family. I spent a total of 60 minutes on the date of the service which included preparing to see the patient, [id number] patient care, completing clinical documentation, obtaining and/or reviewing separately obtained history, performing a medically appropriate examination, counseling and educating the patient/family/caregiver, ordering medications, tests, or procedures, independently interpreting results (not separately reported), communicating results to the patient/family/caregiver and care coordination (not separately reported). Kentrell Smith M.D. Staff, Epilepsy Center/Neurology, Neurological [facility], Mail code - [id number] [address] [facility] [address] CC: Records via digital FAX or [employer] Melly Ely MD [address] [place] [address] SELF Phone: N/A Fax: The family of Sara Pichardo [address] [facility] [address] documented in this encounter [facility] 10-01-2021 Miscellaneous Notes Received POA papers Uploaded to [employer] documented in this encounter [facility] 10-01-2021 Miscellaneous Notes Spoke to Jose and advised per Dr. Haider. She verbalized understanding and agrees with plan. Please file pending order. Thank you. ======= Routed to Dr. Meliza Silva RN -Called Ms. Callahan. Did not receive an answer. Will await call-back. Beto Jernigan RN Plan to start Xcopri 12.5mg at bedtime for 2 weeks and then increase to 25mg at bedtime. I know he will need a PA for this medication Thanks Kentrell Smith MD Neuro Peds Epilepsy Care Coordination Post-seizure/Medication Concerns/Side Effects Date of service : September 30, 2021 Sara Pichardo is a 16 year old. Admitted to PMU from 09/19/2021 to 09/21/[address] Haider in office visit on 07/25/2021 Now~ Ms. Garcia reports yesterday afternoon Sara had a prolonged seizures, lasting 4 minutes. Mom reports he was drooling, mouth and eyes twisted (mom think maybe to left- but not really sure), and hands contorted. Valtoco 20 mg given. She called 911 and he was transported to [facility] in [place], [place] - draw blood, watched for a few hours and released. Current weight: 79 kg Current AEDs ( mg/kg/d) / Recent drug level: Oxtellar XR 1800 mg / Level on 12/17/2020 was 24.3 Topiramate XR 800 mg / Level on 12/17/2020 was 13.6 Cenobamate 100 mg/d Valtoco 20 mg as needed Recent changes/side effects: - She denies illness, missed sleep and missed medications. Main Concern: - Ms. Garcia calls to report prolonged seizure yesterday afternoon. - Mom asked if there's any changes to medicine to help with seizures. - Of note: upcoming office visit this , 10/03/2021. Routed to Dr. Haider for review and recommendations. Beto Jernigan RN Received call from mom and regulatory scientist to see why son hasn't been prescribed yet. Mom is asking for a call back because she is concerned about son having long seizures. [phone] (home) Will need an regulatory scientist. Seizure activity: Name of Caller : Paulina Garcia Relationship to patient: Mother If not self will need patient permission to release results or disclose health information with caller documented in FYI. Was permission obtained from patient? No Patient identified by Name and Date of . Sara Pichardo2005, Yes Contact phone number: [phone] (home) Date of seizure: 09/29/2021 Duration: 4 mins Back to Baseline (Yes/No): yes Emergency treatment needed (Yes/No): yes Patient of Dr. gonzales Thank you for calling the [facility]. You will receive a return call within 24 hours. documented in this encounter [facility] 2021 Miscellaneous Notes We are holding on Xcopri. he was not taking his medications. Levels were lower on admission and back to usual at discharge time with no change in dose. I will call his mother to discuss Thanks Kentrell Smith MD' Per staff message from Dr. Haider on 09/18/21: Can you find out if this patient is taking the Xcopri? I know htere was an issue with his insurance. If not, we need to start him on 12.5mg at bedtime for 2 weeks, then 25mg at bedtime for 2 weeks and then to 50mg at bedtime and continue at this dose. Admitted on 09/19. Please advise if plan of care has changed since admission. ========= Routed to Dr. Meliza Silva RN documented in this encounter [facility] 09-20-2021 History of Present illness Narrative EG documented in this encounter [facility] 09-19-2021 Miscellaneous Notes -Prescription appropriate. Please file, document electronically, and Close encounter. Thank you. -Routed to Dr. Haider. Beto Jernigan RN Prescription Refill: Requested by: pharmacy Please Fax Caller Contact Number: [phone] (home) Pharmacy Name: [facility] Pharmacy Number: [id number] Generic/ brand: generic 30 or 90 day supply requested: 90 Last appointment: 07/25/21 Next Appointment: none Patient of Dr. haider documented in this encounter [facility] 09-19-2021 History of Present illness Narrative Please route this encounter to the EMU Scheduling Pool ( P EMU ) or PMU Scheduling Pool ( P PMU ) through LOS & Follow up PHASE 1.0 AND 1.5 ORDER SYNOPSIS Patient: Sara Pichardo ([id number]) Best contact number: [phone] Insurance: Payor: [employer] MEDICAID / Plan: [employer] MEDICAID / Product Type: Medicaid / Scheduling Team: Please call for adult patients: Sarah John ([phone]) Tesha Collier ([phone]) Renetta Everett([phone]) Narda Garcia([phone]) Please call for pediatric patients: Tesha Collier ([phone]) Renetta Everett ([phone]) Sarah John ([phone]) Narda Garcia([phone]) 09/19/2021 Admission Type PMU Pediatric Ketogenic Diet? No Number of Days requested 3 Location [facility] Admit Priority STAT PURPOSE 09/19/2021 Patient Being Considered for Epilepsy Surgery? No VEEG recommended to assess seizure burden, address new & concerning syymptom-sign complex, and/or clarify syndromic epilepsy diagnosis? 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 VEEG to evaluate seizure burden. Kentrell Smith MD Consultations None Please route this encounter to the EMU Scheduling pool ( P EMU ) or PMU Scheduling pool ( P PMU ) through LOS & Follow up Scheduling coordinators: For all VNS patients being scheduled for TIARA, please schedule VNS off/on office visits. documented in this encounter [facility] 09-18-2021 Miscellaneous Notes Date of service: September 18, 2021 Sara Pichardo is a 15 year old Last seen by Dr. Haider on 07/25/21 Now requesting oxcarbazepine refill Prescription appropriate, please file and document electronically. Thank you. Routed to Dr. Meliza Silva RN Prescription Refill: Requested by: parent Please E-Scribe Caller Contact Number: Pharmacy Name: [facility] Pharmacy Number: [id number] Generic/ brand: 30 or 90 day supply requested: 90 Last appointment: 07/25/2021 Next Appointment: none Patient of Dr. Haider documented in this encounter [facility] 09-18-2021 Miscellaneous Notes Duplicate. See telephone encounter dated 09/18/21. Funmilayo Silva RN Seizure activity: Name of Caller : Paulina Garcia Relationship to patient: Mother If not self will need patient permission to release results or disclose health information with caller documented in FYI. Was permission obtained from patient? Yes Patient identified by Name and Date of . Sara Pichardo2005, Yes Contact phone number: [phone] Date of seizure: 09/18/2021 Duration: 1 minute Back to Baseline (Yes/No): yes Emergency treatment needed (Yes/No): No Patient of Dr. Haider Thank you for calling the [facility]. You will receive a return call within 24 hours. documented in this encounter [facility] 06-02-2018 History of Past i llness Narrative Problem Noted Date Resolved Date Physical deconditioning 06/02/2018 09/21/19 22 Cerebral edema 05/31/2018 09/20/2021 Overview: S/p brain surgery Decadron weaned to 2mg BID today S/P brain surgery 02/12/2018 06/01/2018 Overview: Bilateral SEEG placed on 02/05/2018 Intractable epilepsy 11/26/2016 06/01/2018 Seizures 08/28/2015 06/01/2018 Movement disorder 09/29/2012 06/01/2018 Abdominal pain 07/16/2011 02/08/2018 Esophageal reflux 05/07/2006 03/12/2007 Unspecified constipation 03/26/2006 007 Gastrostomy complication, 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 03/12/2007 Feeding difficulties and mismanagement 6 03/12/2007 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 09/20/2021 Vitamin D deficiency 06/01/2018 Urinary incontinence 06/01/2018 Syncope 06/01/2018 Low blood pressure 06/01/2018 Encephalitis 09/20/2021 documented as of this encounter (statuses as of 09/25/2021) [facility] History of Past illness Narrative* Problem Noted Date Resolved Date Physical deconditioning 06/02/2018 09/21/19 22 Cerebral edema 05/31/2018 09/20/2021 Overview: S/p brain surgery Decadron weaned to 2mg BID today S/P brain surgery 02/12/2018 06/01/2018 Overview: Bilateral SEEG placed on 02/05/2018 Intractable epilepsy 11/26/2016 06/01/2018 Seizures 08/28/2015 06/01/2018 Movement disorder 09/29/2012 06/01/2018 Abdominal pain 07/16/2011 02/08/2018 Esophageal reflux 05/07/2006 03/12/2007 Unspecified constipation 03/26/2006 007 Gastrostomy complication, 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 03/12/2007 Feeding difficulties and mismanagement 6 03/12/2007 Bbij-U-fevckh-D-aspartate (NMDA) receptor enceph alitis 10/27/2005 09/20/2021 Vitamin D deficiency 06/01/2018 Urinary incontinence 06/01/2018 Syncope 06/01/2018 Low blood pressure 06/01/2018 Encephalitis 09/20/2021 documented as of this encounter (statuses as of 2021) [facility] History of Past illness Narrative* Problem Noted Date Resolved Date Physical deconditioning 06/02/2018 09/21/19 22 Cerebral edema 05/31/2018 09/20/2021 Overview: S/p brain surgery Decadron weaned to 2mg BID today S/P brain surgery 02/12/2018 06/01/2018 Overview: Bilateral SEEG placed on 02/05/2018 Intractable epilepsy 11/26/2016 06/01/2018 Seizures 08/28/2015 06/01/2018 Movement disorder 09/29/2012 06/01/2018 Abdominal pain 07/16/2011 02/08/2018 Esophageal reflux 05/07/2006 03/12/2007 Unspecified constipation 03/26/2006 007 Gastrostomy complication, 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 03/12/2007 Feeding difficulties and mismanagement 6 03/12/2007 Depk-M-sbrxut-D-aspartate (NMDA) receptor enceph alitis 10/27/2005 09/20/2021 Vitamin D deficiency 06/01/2018 Urinary incontinence 06/01/2018 Syncope 06/01/2018 Low blood pressure 06/01/2018 Encephalitis 09/20/2021 documented as of this encounter (statuses as of 10/01/2021) [facility] History of Past illness Narrative* Problem Noted Date Resolved Date Physical deconditioning 06/02/2018 09/21/19 22 Cerebral edema 05/31/2018 09/20/2021 Overview: S/p brain surgery Decadron weaned to 2mg BID today S/P brain surgery 02/12/2018 06/01/2018 Overview: Bilateral SEEG placed on 02/05/2018 Intractable epilepsy 11/26/2016 06/01/2018 Seizures 08/28/2015 06/01/2018 Movement disorder 09/29/2012 06/01/2018 Abdominal pain 07/16/2011 02/08/2018 Esophageal reflux 05/07/2006 03/12/2007 Unspecified constipation 03/26/2006 007 Gastrostomy complication, 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 03/12/2007 Feeding difficulties and mismanagement 6 03/12/2007 Zjrd-J-qwwqqt-D-aspartate (NMDA) receptor enceph yuri 10/27/2005 09/20/2021 Vitamin D deficiency 06/01/2018 Urinary incontinence 06/01/2018 Syncope 06/01/2018 Low blood pressure 06/01/2018 Encephalitis 09/20/2021 documented as of this encounter (statuses as of 10/01/2021) [facility] History of Past illness Narrative* Problem Noted Date Resolved Date Physical deconditioning 06/02/2018 09/21/19 22 Cerebral edema 05/31/2018 09/20/2021 Overview: S/p brain surgery Decadron weaned to 2mg BID today S/P brain surgery 02/12/2018 06/01/2018 Overview: Bilateral SEEG placed on 02/05/2018 Intractable epilepsy 11/26/2016 06/01/2018 Seizures 08/28/2015 06/01/2018 Movement disorder 09/29/2012 06/01/2018 Abdominal pain 07/16/2011 02/08/2018 Esophageal reflux 05/07/2006 03/12/2007 Unspecified constipation 03/26/2006 007 Gastrostomy complication, 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 03/12/2007 Feeding difficulties and mismanagement 6 03/12/2007 Vpfn-M-binkzs-D-aspartate (NMDA) receptor enceph alitis 10/27/2005 09/20/2021 Vitamin D deficiency 06/01/2018 Urinary incontinence 06/01/2018 Syncope 06/01/2018 Low blood pressure 06/01/2018 Encephalitis 09/20/2021 documented as of this encounter (statuses as of 10/03/2021) [facility] History of Past illness Narrative* Problem Noted Date Resolved Date Physical deconditioning 06/02/2018 09/21/19 22 Cerebral edema 05/31/2018 09/20/2021 Overview: S/p brain surgery Decadron weaned to 2mg BID today S/P brain surgery 02/12/2018 06/01/2018 Overview: Bilateral SEEG placed on 02/05/2018 Intractable epilepsy 11/26/2016 06/01/2018 Seizures 08/28/2015 06/01/2018 Movement disorder 09/29/2012 06/01/2018 Abdominal pain 07/16/2011 02/08/2018 Esophageal reflux 05/07/2006 03/12/2007 Unspecified constipation 03/26/2006 007 Gastrostomy complication, 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 03/12/2007 Feeding difficulties and mismanagement 6 03/12/2007 Asld-A-lhwhwb-D-aspartate (NMDA) receptor enceph alitis 10/27/2005 09/20/2021 Vitamin D deficiency 06/01/2018 Urinary incontinence 06/01/2018 Syncope 06/01/2018 Low blood pressure 06/01/2018 Encephalitis 09/20/2021 documented as of this encounter (statuses as of 10/03/2021) [facility] History of Past illness Narrative* Problem Noted Date Resolved Date Physical deconditioning 06/02/2018 09/21/19 22 Cerebral edema 05/31/2018 09/20/2021 Overview: S/p brain surgery Decadron weaned to 2mg BID today S/P brain surgery 02/12/2018 06/01/2018 Overview: Bilateral SEEG placed on 02/05/2018 Intractable epilepsy 11/26/2016 06/01/2018 Seizures 08/28/2015 06/01/2018 Movement disorder 09/29/2012 06/01/2018 Abdominal pain 07/16/2011 02/08/2018 Esophageal reflux 05/07/2006 03/12/2007 Unspecified constipation 03/26/2006 007 Gastrostomy complication, 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 03/12/2007 Feeding difficulties and mismanagement 6 03/12/2007 Ceuy-E-husxdj-D-aspartate (NMDA) receptor enceph alitis 10/27/2005 09/20/2021 Vitamin D deficiency 06/01/2018 Urinary incontinence 06/01/2018 Syncope 06/01/2018 Low blood pressure 06/01/2018 Encephalitis 09/20/2021 documented as of this encounter (statuses as of 10/08/2021) [facility] History of Past illness Narrative* Problem Noted Date Resolved Date Physical deconditioning 06/02/2018 09/21/19 22 Cerebral edema 05/31/2018 09/20/2021 Overview: S/p brain surgery Decadron weaned to 2mg BID today S/P brain surgery 02/12/2018 06/01/2018 Overview: Bilateral SEEG placed on 02/05/2018 Intractable epilepsy 11/26/2016 06/01/2018 Seizures 08/28/2015 06/01/2018 Movement disorder 09/29/2012 06/01/2018 Abdominal pain 07/16/2011 02/08/2018 Esophageal reflux 05/07/2006 03/12/2007 Unspecified constipation 03/26/2006 007 Gastrostomy complication, 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 03/12/2007 Feeding difficulties and mismanagement 6 03/12/2007 Stzd-T-mmptxy-D-aspartate (NMDA) receptor enceph alitis 10/27/2005 09/20/2021 Vitamin D deficiency 06/01/2018 Urinary incontinence 06/01/2018 Syncope 06/01/2018 Low blood pressure 06/01/2018 Encephalitis 09/20/2021 documented as of this encounter (statuses as of 10/30/2021) [facility] History of Past illness Narrative* Problem Noted Date Resolved Date Physical deconditioning 06/02/2018 09/21/19 22 Cerebral edema 05/31/2018 09/20/2021 Overview: S/p brain surgery Decadron weaned to 2mg BID today S/P brain surgery 02/12/2018 06/01/2018 Overview: Bilateral SEEG placed on 02/05/2018 Intractable epilepsy 11/26/2016 06/01/2018 Seizures 08/28/2015 06/01/2018 Movement disorder 09/29/2012 06/01/2018 Abdominal pain 07/16/2011 02/08/2018 Esophageal reflux 05/07/2006 03/12/2007 Unspecified constipation 03/26/2006 007 Gastrostomy complication, 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 03/12/2007 Feeding difficulties and mismanagement 6 03/12/2007 Vugi-W-zuclpy-D-aspartate (NMDA) receptor enceph alitis 10/27/2005 09/20/2021 Vitamin D deficiency 06/01/2018 Urinary incontinence 06/01/2018 Syncope 06/01/2018 Low blood pressure 06/01/2018 Encephalitis 09/20/2021 documented as of this encounter (statuses as of 11/01/2021) [facility]2019 History of Past illness Narrative* Problem Noted Date Resolved Date Physical deconditioning 06/02/2018 09/21/19 22 Cerebral edema 05/31/2018 09/20/2021 Overview: S/p brain surgery Decadron weaned to 2mg BID today S/P brain surgery 02/12/2018 06/01/2018 Overview: Bilateral SEEG placed on 02/05/2018 Intractable epilepsy 11/26/2016 06/01/2018 Seizures 08/28/2015 06/01/2018 Movement disorder 09/29/2012 06/01/2018 Abdominal pain 07/16/2011 02/08/2018 Esophageal reflux 05/07/2006 03/12/2007 Unspecified constipation 03/26/2006 007 Gastrostomy complication, 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 03/12/2007 Feeding difficulties and mismanagement 6 03/12/2007 Kdds-A-ruqqrd-D-aspartate (NMDA) receptor enceph alitis 10/27/2005 09/20/2021 Vitamin D deficiency 06/01/2018 Urinary incontinence 06/01/2018 Syncope 06/01/2018 Low blood pressure 06/01/2018 Encephalitis 09/20/2021 documented as of this encounter (statuses as of 11/04/2021) [facility] History of Past illness Narrative* Problem Noted Date Resolved Date Physical deconditioning 06/02/2018 09/21/19 22 Cerebral edema 05/31/2018 09/20/2021 Overview: S/p brain surgery Decadron weaned to 2mg BID today S/P brain surgery 02/12/2018 06/01/2018 Overview: Bilateral SEEG placed on 02/05/2018 Intractable epilepsy 11/26/2016 06/01/2018 Seizures 08/28/2015 06/01/2018 Movement disorder 09/29/2012 06/01/2018 Abdominal pain 07/16/2011 02/08/2018 Esophageal reflux 05/07/2006 03/12/2007 Unspecified constipation 03/26/2006 007 Gastrostomy complication, 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 03/12/2007 Feeding difficulties and mismanagement 6 03/12/2007 Yqua-U-mhpfcf-D-aspartate (NMDA) receptor enceph alitis 10/27/2005 09/20/2021 Vitamin D deficiency 06/01/2018 Urinary incontinence 06/01/2018 Syncope 06/01/2018 Low blood pressure 06/01/2018 Encephalitis 09/20/2021 documented as of this encounter (statuses as of 11/04/2021) [facility] History of Past illness Narrative* Problem Noted Date Resolved Date Physical deconditioning 06/02/2018 09/21/19 22 Cerebral edema 05/31/2018 09/20/2021 Overview: S/p brain surgery Decadron weaned to 2mg BID today S/P brain surgery 02/12/2018 06/01/2018 Overview: Bilateral SEEG placed on 02/05/2018 Intractable epilepsy 11/26/2016 06/01/2018 Seizures 08/28/2015 06/01/2018 Movement disorder 09/29/2012 06/01/2018 Abdominal pain 07/16/2011 02/08/2018 Esophageal reflux 05/07/2006 03/12/2007 Unspecified constipation 03/26/2006 007 Gastrostomy complication, 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 03/12/2007 Feeding difficulties and mismanagement 6 03/12/2007 Wqxp-Z-sjpnjj-D-aspartate (NMDA) receptor enceph alitis 10/27/2005 09/20/2021 Vitamin D deficiency 06/01/2018 Urinary incontinence 06/01/2018 Syncope 06/01/2018 Low blood pressure 06/01/2018 Encephalitis 09/20/2021 documented as of this encounter (statuses as of 11/04/2021) [facility] History of Past illness Narrative* Problem Noted Date Resolved Date Physical deconditioning 06/02/2018 09/21/19 22 Cerebral edema 05/31/2018 09/20/2021 Overview: S/p brain surgery Decadron weaned to 2mg BID today S/P brain surgery 02/12/2018 06/01/2018 Overview: Bilateral SEEG placed on 02/05/2018 Intractable epilepsy 11/26/2016 06/01/2018 Seizures 08/28/2015 06/01/2018 Movement disorder 09/29/2012 06/01/2018 Abdominal pain 07/16/2011 02/08/2018 Esophageal reflux 05/07/2006 03/12/2007 Unspecified constipation 03/26/2006 007 Gastrostomy complication, 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 03/12/2007 Feeding difficulties and mismanagement 6 03/12/2007 Tsah-R-yzeofp-D-aspartate (NMDA) receptor enceph alitis 10/27/2005 09/20/2021 Vitamin D deficiency 06/01/2018 Urinary incontinence 06/01/2018 Syncope 06/01/2018 Low blood pressure 06/01/2018 Encephalitis 09/20/2021 documented as of this encounter (statuses as of 11/07/2021) [facility] History of Past illness Narrative* Problem Noted Date Resolved Date Physical deconditioning 06/02/2018 09/21/19 22 Cerebral edema 05/31/2018 09/20/2021 Overview: S/p brain surgery Decadron weaned to 2mg BID today S/P brain surgery 02/12/2018 06/01/2018 Overview: Bilateral SEEG placed on 02/05/2018 Intractable epilepsy 11/26/2016 06/01/2018 Seizures 08/28/2015 06/01/2018 Movement disorder 09/29/2012 06/01/2018 Abdominal pain 07/16/2011 02/08/2018 Esophageal reflux 05/07/2006 03/12/2007 Unspecified constipation 03/26/2006 007 Gastrostomy complication, 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 03/12/2007 Feeding difficulties and mismanagement 6 03/12/2007 Almx-Q-prucks-D-aspartate (NMDA) receptor enceph alitis 10/27/2005 09/20/2021 Vitamin D deficiency 06/01/2018 Urinary incontinence 06/01/2018 Syncope 06/01/2018 Low blood pressure 06/01/2018 Encephalitis 09/20/2021 documented as of this encounter (statuses as of 11/13/2021) [facility] History of Past illness Narrative* Problem Noted Date Resolved Date Physical deconditioning 06/02/2018 09/21/19 22 Cerebral edema 05/31/2018 09/20/2021 Overview: S/p brain surgery Decadron weaned to 2mg BID today S/P brain surgery 02/12/2018 06/01/2018 Overview: Bilateral SEEG placed on 02/05/2018 Intractable epilepsy 11/26/2016 06/01/2018 Seizures 08/28/2015 06/01/2018 Movement disorder 09/29/2012 06/01/2018 Abdominal pain 07/16/2011 02/08/2018 Esophageal reflux 05/07/2006 03/12/2007 Unspecified constipation 03/26/2006 007 Gastrostomy complication, 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 03/12/2007 Feeding difficulties and mismanagement 6 03/12/2007 Aoit-A-quegdq-D-aspartate (NMDA) receptor enceph alitis 10/27/2005 09/20/2021 Vitamin D deficiency 06/01/2018 Urinary incontinence 06/01/2018 Syncope 06/01/2018 Low blood pressure 06/01/2018 Encephalitis 09/20/2021 documented as of this encounter (statuses as of 11/18/2021) [facility] History of Past illness Narrative* Problem Noted Date Resolved Date Physical deconditioning 06/02/2018 09/21/19 22 Cerebral edema 05/31/2018 09/20/2021 Overview: S/p brain surgery Decadron weaned to 2mg BID today S/P brain surgery 02/12/2018 06/01/2018 Overview: Bilateral SEEG placed on 02/05/2018 Intractable epilepsy 11/26/2016 06/01/2018 Seizures 08/28/2015 06/01/2018 Movement disorder 09/29/2012 06/01/2018 Abdominal pain 07/16/2011 02/08/2018 Esophageal reflux 05/07/2006 03/12/2007 Unspecified constipation 03/26/2006 007 Gastrostomy complication, 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 03/12/2007 Feeding difficulties and mismanagement 6 03/12/2007 Qnox-X-cyrwsw-D-aspartate (NMDA) receptor enceph alitis 10/27/2005 09/20/2021 Vitamin D deficiency 06/01/2018 Urinary incontinence 06/01/2018 Syncope 06/01/2018 Low blood pressure 06/01/2018 Encephalitis 09/20/2021 documented as of this encounter (statuses as of 11/27/2021) [facility] History of Past illness Narrative* Problem Noted Date Resolved Date Physical deconditioning 06/02/2018 09/21/19 22 Cerebral edema 05/31/2018 09/20/2021 Overview: S/p brain surgery Decadron weaned to 2mg BID today S/P brain surgery 02/12/2018 06/01/2018 Overview: Bilateral SEEG placed on 02/05/2018 Intractable epilepsy 11/26/2016 06/01/2018 Seizures 08/28/2015 06/01/2018 Movement disorder 09/29/2012 06/01/2018 Abdominal pain 07/16/2011 02/08/2018 Esophageal reflux 05/07/2006 03/12/2007 Unspecified constipation 03/26/2006 007 Gastrostomy complication, 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 03/12/2007 Feeding difficulties and mismanagement 6 03/12/2007 Wvfx-J-eyobom-D-aspartate (NMDA) receptor enceph alitis 10/27/2005 09/20/2021 Vitamin D deficiency 06/01/2018 Urinary incontinence 06/01/2018 Syncope 06/01/2018 Low blood pressure 06/01/2018 Encephalitis 09/20/2021 documented as of this encounter (statuses as of 11/28/2021) [facility] History of Past illness Narrative* Problem Noted Date Resolved Date Physical deconditioning 06/02/2018 09/21/19 22 Cerebral edema 05/31/2018 09/20/2021 Overview: S/p brain surgery Decadron weaned to 2mg BID today S/P brain surgery 02/12/2018 06/01/2018 Overview: Bilateral SEEG placed on 02/05/2018 Intractable epilepsy 11/26/2016 06/01/2018 Seizures 08/28/2015 06/01/2018 Movement disorder 09/29/2012 06/01/2018 Abdominal pain 07/16/2011 02/08/2018 Esophageal reflux 05/07/2006 03/12/2007 Unspecified constipation 03/26/2006 007 Gastrostomy complication, 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 03/12/2007 Feeding difficulties and mismanagement 6 03/12/2007 Ptio-J-wckfco-D-aspartate (NMDA) receptor enceph alitis 10/27/2005 09/20/2021 Vitamin D deficiency 06/01/2018 Urinary incontinence 06/01/2018 Syncope 06/01/2018 Low blood pressure 06/01/2018 Encephalitis 09/20/2021 documented as of this encounter (statuses as of 11/29/2021) [facility] History of Past illness Narrative* Problem Noted Date Resolved Date Physical deconditioning 06/02/2018 09/21/19 22 Cerebral edema 05/31/2018 09/20/2021 Overview: S/p brain surgery Decadron weaned to 2mg BID today S/P brain surgery 02/12/2018 06/01/2018 Overview: Bilateral SEEG placed on 02/05/2018 Intractable epilepsy 11/26/2016 06/01/2018 Seizures 08/28/2015 06/01/2018 Movement disorder 09/29/2012 06/01/2018 Abdominal pain 07/16/2011 02/08/2018 Esophageal reflux 05/07/2006 03/12/2007 Unspecified constipation 03/26/2006 007 Gastrostomy complication, 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 03/12/2007 Feeding difficulties and mismanagement 6 03/12/2007 Udbf-Z-pvhgad-D-aspartate (NMDA) receptor enceph alitis 10/27/2005 09/20/2021 Vitamin D deficiency 06/01/2018 Urinary incontinence 06/01/2018 Syncope 06/01/2018 Low blood pressure 06/01/2018 Encephalitis 09/20/2021 documented as of this encounter (statuses as of 11/29/2021) [facility] History of Past illness Narrative* Problem Noted Date Resolved Date Physical deconditioning 06/02/2018 09/21/19 22 Cerebral edema 05/31/2018 09/20/2021 Overview: S/p brain surgery Decadron weaned to 2mg BID today S/P brain surgery 02/12/2018 06/01/2018 Overview: Bilateral SEEG placed on 02/05/2018 Intractable epilepsy 11/26/2016 06/01/2018 Seizures 08/28/2015 06/01/2018 Movement disorder 09/29/2012 06/01/2018 Abdominal pain 07/16/2011 02/08/2018 Esophageal reflux 05/07/2006 03/12/2007 Unspecified constipation 03/26/2006 007 Gastrostomy complication, 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 03/12/2007 Feeding difficulties and mismanagement 6 03/12/2007 Lspp-U-afipnd-D-aspartate (NMDA) receptor enceph alitis 10/27/2005 09/20/2021 Vitamin D deficiency 06/01/2018 Urinary incontinence 06/01/2018 Syncope 06/01/2018 Low blood pressure 06/01/2018 Encephalitis 09/20/2021 documented as of this encounter (statuses as of 12/02/2021) [facility] History of Past illness Narrative* Problem Noted Date Resolved Date Physical deconditioning 06/02/2018 09/21/19 22 Cerebral edema 05/31/2018 09/20/2021 Overview: S/p brain surgery Decadron weaned to 2mg BID today S/P brain surgery 02/12/2018 06/01/2018 Overview: Bilateral SEEG placed on 02/05/2018 Intractable epilepsy 11/26/2016 06/01/2018 Seizures 08/28/2015 06/01/2018 Movement disorder 09/29/2012 06/01/2018 Abdominal pain 07/16/2011 02/08/2018 Esophageal reflux 05/07/2006 03/12/2007 Unspecified constipation 03/26/2006 007 Gastrostomy complication, 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 03/12/2007 Feeding difficulties and mismanagement 6 03/12/2007 Tslc-M-lmnslh-D-aspartate (NMDA) receptor enceph alitis 10/27/2005 09/20/2021 Vitamin D deficiency 06/01/2018 Urinary incontinence 06/01/2018 Syncope 06/01/2018 Low blood pressure 06/01/2018 Encephalitis 09/20/2021 documented as of this encounter (statuses as of 12/10/2021) [facility] History of Past illness Narrative* Problem Noted Date Resolved Date Physical deconditioning 06/02/2018 09/21/19 22 Cerebral edema 05/31/2018 09/20/2021 Overview: S/p brain surgery Decadron weaned to 2mg BID today S/P brain surgery 02/12/2018 06/01/2018 Overview: Bilateral SEEG placed on 02/05/2018 Intractable epilepsy 11/26/2016 06/01/2018 Seizures 08/28/2015 06/01/2018 Movement disorder 09/29/2012 06/01/2018 Abdominal pain 07/16/2011 02/08/2018 Esophageal reflux 05/07/2006 03/12/2007 Unspecified constipation 03/26/2006 007 Gastrostomy complication, 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 03/12/2007 Feeding difficulties and mismanagement 6 03/12/2007 Ollr-D-klraks-D-aspartate (NMDA) receptor enceph alitis 10/27/2005 09/20/2021 Vitamin D deficiency 06/01/2018 Urinary incontinence 06/01/2018 Syncope 06/01/2018 Low blood pressure 06/01/2018 Encephalitis 09/20/2021 documented as of this encounter (statuses as of 12/10/2021) [facility] History of Past illness Narrative* Problem Noted Date Resolved Date Physical deconditioning 06/02/2018 09/21/19 22 Cerebral edema 05/31/2018 09/20/2021 Overview: S/p brain surgery Decadron weaned to 2mg BID today S/P brain surgery 02/12/2018 06/01/2018 Overview: Bilateral SEEG placed on 02/05/2018 Intractable epilepsy 11/26/2016 06/01/2018 Movement disorder 09/29/2012 06/01/2018 Abdominal pain 07/16/2011 02/08/2018 Esophageal reflux 05/07/2006 03/12/2007 Unspecified constipation 03/26/2006 007 Gastrostomy complication, 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 03/12/2007 Feeding difficulties and mismanagement 6 03/12/2007 Uwuq-V-ebpqdh-D-aspartate (NMDA) receptor enceph alitis 10/27/2005 09/20/2021 Vitamin D deficiency 06/01/2018 Urinary incontinence 06/01/2018 Syncope 06/01/2018 Low blood pressure 06/01/2018 documented as of this encounter (statuses as of 12/16/2021) [facility] History of Past illness Narrative* Problem Noted Date Resolved Date Physical deconditioning 06/02/2018 09/21/19 22 Cerebral edema 05/31/2018 09/20/2021 Overview: S/p brain surgery Decadron weaned to 2mg BID today S/P brain surgery 02/12/2018 06/01/2018 Overview: Bilateral SEEG placed on 02/05/2018 Intractable epilepsy 11/26/2016 06/01/2018 Movement disorder 09/29/2012 06/01/2018 Abdominal pain 07/16/2011 02/08/2018 Esophageal reflux 05/07/2006 03/12/2007 Unspecified constipation 03/26/2006 007 Gastrostomy complication, 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 03/12/2007 Feeding difficulties and mismanagement 6 03/12/2007 Venb-A-jgayvd-D-aspartate (NMDA) receptor enceph alitis 10/27/2005 09/20/2021 Vitamin D deficiency 06/01/2018 Urinary incontinence 06/01/2018 Syncope 06/01/2018 Low blood pressure 06/01/2018 documented as of this encounter (statuses as of 12/20/2021) [facility] History of Past illness Narrative* Problem Noted Date Resolved Date Physical deconditioning 06/02/2018 09/21/19 22 Cerebral edema 05/31/2018 09/20/2021 Overview: S/p brain surgery Decadron weaned to 2mg BID today S/P brain surgery 02/12/2018 06/01/2018 Overview: Bilateral SEEG placed on 02/05/2018 Intractable epilepsy 11/26/2016 06/01/2018 Movement disorder 09/29/2012 06/01/2018 Abdominal pain 07/16/2011 02/08/2018 Esophageal reflux 05/07/2006 03/12/2007 Unspecified constipation 03/26/2006 007 Gastrostomy complication, 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 03/12/2007 Feeding difficulties and mismanagement 6 03/12/2007 Ysib-P-fiuers-D-aspartate (NMDA) receptor enceph alitis 10/27/2005 09/20/2021 Vitamin D deficiency 06/01/2018 Urinary incontinence 06/01/2018 Syncope 06/01/2018 Low blood pressure 06/01/2018 documented as of this encounter (statuses as of 12/25/2021) [facility] History of Past illness Narrative* Problem Noted Date Resolved Date Physical deconditioning 06/02/2018 09/21/19 22 Cerebral edema 05/31/2018 09/20/2021 Overview: S/p brain surgery Decadron weaned to 2mg BID today S/P brain surgery 02/12/2018 06/01/2018 Overview: Bilateral SEEG placed on 02/05/2018 Intractable epilepsy 11/26/2016 06/01/2018 Movement disorder 09/29/2012 06/01/2018 Abdominal pain 07/16/2011 02/08/2018 Esophageal reflux 05/07/2006 03/12/2007 Unspecified constipation 03/26/2006 007 Gastrostomy complication, 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 03/12/2007 Feeding difficulties and mismanagement 6 03/12/2007 Kvfl-E-stavfx-D-aspartate (NMDA) receptor enceph alitis 10/27/2005 09/20/2021 Vitamin D deficiency 06/01/2018 Urinary incontinence 06/01/2018 Syncope 06/01/2018 Low blood pressure 06/01/2018 documented as of this encounter (statuses as of 12/31/2021) [facility] History of Past illness Narrative* Problem Noted Date Resolved Date Physical deconditioning 06/02/2018 09/21/19 22 Cerebral edema 05/31/2018 09/20/2021 Overview: S/p brain surgery Decadron weaned to 2mg BID today S/P brain surgery 02/12/2018 06/01/2018 Overview: Bilateral SEEG placed on 02/05/2018 Intractable epilepsy 11/26/2016 06/01/2018 Movement disorder 09/29/2012 06/01/2018 Abdominal pain 07/16/2011 02/08/2018 Esophageal reflux 05/07/2006 03/12/2007 Unspecified constipation 03/26/2006 007 Gastrostomy complication, 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 03/12/2007 Feeding difficulties and mismanagement 6 03/12/2007 Ybcg-U-rpwgka-D-aspartate (NMDA) receptor enceph alitis 10/27/2005 09/20/2021 Vitamin D deficiency 06/01/2018 Urinary incontinence 06/01/2018 Syncope 06/01/2018 Low blood pressure 06/01/2018 documented as of this encounter (statuses as of 01/01/2022) [facility] History of Past illness Narrative* Problem Noted Date Resolved Date Physical deconditioning 06/02/2018 09/21/19 22 Cerebral edema 05/31/2018 09/20/2021 Overview: S/p brain surgery Decadron weaned to 2mg BID today S/P brain surgery 02/12/2018 06/01/2018 Overview: Bilateral SEEG placed on 02/05/2018 Intractable epilepsy 11/26/2016 06/01/2018 Movement disorder 09/29/2012 06/01/2018 Abdominal pain 07/16/2011 02/08/2018 Esophageal reflux 05/07/2006 03/12/2007 Unspecified constipation 03/26/2006 007 Gastrostomy complication, 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 03/12/2007 Feeding difficulties and mismanagement 6 03/12/2007 Bdbr-E-ehhcfz-D-aspartate (NMDA) receptor enceph alitis 10/27/2005 09/20/2021 Vitamin D deficiency 06/01/2018 Urinary incontinence 06/01/2018 Syncope 06/01/2018 Low blood pressure 06/01/2018 documented as of this encounter (statuses as of 01/02/2022) [facility] of Past illness Narrative* Problem Noted Date Resolved Date Physical deconditioning 06/02/2018 09/21/19 22 Cerebral edema 05/31/2018 09/20/2021 Overview: S/p brain surgery Decadron weaned to 2mg BID today S/P brain surgery 02/12/2018 06/01/2018 Overview: Bilateral SEEG placed on 02/05/2018 Intractable epilepsy 11/26/2016 06/01/2018 Movement disorder 09/29/2012 06/01/2018 Abdominal pain 07/16/2011 02/08/2018 Esophageal reflux 05/07/2006 03/12/2007 Unspecified constipation 03/26/2006 007 Gastrostomy complication, 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 03/12/2007 Feeding difficulties and mismanagement 6 03/12/2007 Ezbd-L-godoos-D-aspartate (NMDA) receptor enceph yuri 10/27/2005 09/20/2021 Vitamin D deficiency 06/01/2018 Urinary incontinence 06/01/2018 Syncope 06/01/2018 Low blood pressure 06/01/2018 documented as of this encounter (statuses as of 01/03/2022) [facility] History of Past illness Narrative* Problem Noted Date Resolved Date Physical deconditioning 06/02/2018 09/21/19 22 Cerebral edema 05/31/2018 09/20/2021 Overview: S/p brain surgery Decadron weaned to 2mg BID today S/P brain surgery 02/12/2018 06/01/2018 Overview: Bilateral SEEG placed on 02/05/2018 Intractable epilepsy 11/26/2016 06/01/2018 Movement disorder 09/29/2012 06/01/2018 Abdominal pain 07/16/2011 02/08/2018 Esophageal reflux 05/07/2006 03/12/2007 Unspecified constipation 03/26/2006 007 Gastrostomy complication, 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 03/12/2007 Feeding difficulties and mismanagement 6 03/12/2007 Wnof-C-kwvyts-D-aspartate (NMDA) receptor enceph alitis 10/27/2005 09/20/2021 Vitamin D deficiency 06/01/2018 Urinary incontinence 06/01/2018 Syncope 06/01/2018 Low blood pressure 06/01/2018 documented as of this encounter (statuses as of 01/08/2022) [facility] History of Past illness Narrative* Problem Noted Date Resolved Date Physical deconditioning 06/02/2018 09/21/19 22 Cerebral edema 05/31/2018 09/20/2021 Overview: S/p brain surgery Decadron weaned to 2mg BID today S/P brain surgery 02/12/2018 06/01/2018 Overview: Bilateral SEEG placed on 02/05/2018 Intractable epilepsy 11/26/2016 06/01/2018 Movement disorder 09/29/2012 06/01/2018 Abdominal pain 07/16/2011 02/08/2018 Esophageal reflux 05/07/2006 03/12/2007 Unspecified constipation 03/26/2006 007 Gastrostomy complication, 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 03/12/2007 Feeding difficulties and mismanagement 6 03/12/2007 Zylt-K-vtmeay-D-aspartate (NMDA) receptor enceph alitis 10/27/2005 09/20/2021 Vitamin D deficiency 06/01/2018 Urinary incontinence 06/01/2018 Syncope 06/01/2018 Low blood pressure 06/01/2018 documented as of this encounter (statuses as of 01/13/2022) [facility] History of Past illness Narrative* Problem Noted Date Resolved Date Physical deconditioning 06/02/2018 09/21/19 22 Cerebral edema 05/31/2018 09/20/2021 Overview: S/p brain surgery Decadron weaned to 2mg BID today S/P brain surgery 02/12/2018 06/01/2018 Overview: Bilateral SEEG placed on 02/05/2018 Intractable epilepsy 11/26/2016 06/01/2018 Movement disorder 09/29/2012 06/01/2018 Abdominal pain 07/16/2011 02/08/2018 Esophageal reflux 05/07/2006 03/12/2007 Unspecified constipation 03/26/2006 007 Gastrostomy complication, 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 03/12/2007 Feeding difficulties and mismanagement 6 03/12/2007 Oskk-I-zspafl-D-aspartate (NMDA) receptor enceph alilinwood 10/27/2005 09/20/2021 Vitamin D deficiency 06/01/2018 Urinary incontinence 06/01/2018 Syncope 06/01/2018 Low blood pressure 06/01/2018 documented as of this encounter (statuses as of 01/16/2022) [facility] History of Past illness Narrative* Problem Noted Date Resolved Date Physical deconditioning 06/02/2018 09/21/19 22 Cerebral edema 05/31/2018 09/20/2021 Overview: S/p brain surgery Decadron weaned to 2mg BID today S/P brain surgery 02/12/2018 06/01/2018 Overview: Bilateral SEEG placed on 02/05/2018 Intractable epilepsy 11/26/2016 06/01/2018 Movement disorder 09/29/2012 06/01/2018 Abdominal pain 07/16/2011 02/08/2018 Esophageal reflux 05/07/2006 03/12/2007 Unspecified constipation 03/26/2006 007 Gastrostomy complication, 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 03/12/2007 Feeding difficulties and mismanagement 6 03/12/2007 Icfs-J-htjgtm-D-aspartate (NMDA) receptor enceph alitis 10/27/2005 09/20/2021 Vitamin D deficiency 06/01/2018 Urinary incontinence 06/01/2018 Syncope 06/01/2018 Low blood pressure 06/01/2018 documented as of this encounter (statuses as of 01/17/2022) [facility] History of Past illness Narrative* Problem Noted Date Resolved Date Physical deconditioning 06/02/2018 09/21/19 22 Cerebral edema 05/31/2018 09/20/2021 Overview: S/p brain surgery Decadron weaned to 2mg BID today S/P brain surgery 02/12/2018 06/01/2018 Overview: Bilateral SEEG placed on 02/05/2018 Intractable epilepsy 11/26/2016 06/01/2018 Movement disorder 09/29/2012 06/01/2018 Abdominal pain 07/16/2011 02/08/2018 Esophageal reflux 05/07/2006 03/12/2007 Unspecified constipation 03/26/2006 007 Gastrostomy complication, 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 03/12/2007 Feeding difficulties and mismanagement 6 03/12/2007 Wpjj-P-hkwztw-D-aspartate (NMDA) receptor enceph alitis 10/27/2005 09/20/2021 Vitamin D deficiency 06/01/2018 Urinary incontinence 06/01/2018 Syncope 06/01/2018 Low blood pressure 06/01/2018 documented as of this encounter (statuses as of 01/21/2022) [facility]02-[facility]-2019 History of Past illness Narrative* Problem Noted Date Resolved Date Physical deconditioning 06/02/2018 09/21/19 22 Cerebral edema 05/31/2018 09/20/2021 Overview: S/p brain surgery Decadron weaned to 2mg BID today S/P brain surgery 02/12/2018 06/01/2018 Overview: Bilateral SEEG placed on 02/05/2018 Intractable epilepsy 11/26/2016 06/01/2018 Movement disorder 09/29/2012 06/01/2018 Abdominal pain 07/16/2011 02/08/2018 Esophageal reflux 05/07/2006 03/12/2007 Unspecified constipation 03/26/2006 007 Gastrostomy complication, 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 03/12/2007 Feeding difficulties and mismanagement 6 03/12/2007 Vptw-A-ourrqb-D-aspartate (NMDA) receptor enceph alitis 10/27/2005 09/20/2021 Vitamin D deficiency 06/01/2018 Urinary incontinence 06/01/2018 Syncope 06/01/2018 Low blood pressure 06/01/2018 documented as of this encounter (statuses as of 01/22/2022) [facility] History of Past illness Narrative* Problem Noted Date Resolved Date Physical deconditioning 06/02/2018 09/21/19 22 Cerebral edema 05/31/2018 09/20/2021 Overview: S/p brain surgery Decadron weaned to 2mg BID today S/P brain surgery 02/12/2018 06/01/2018 Overview: Bilateral SEEG placed on 02/05/2018 Intractable epilepsy 11/26/2016 06/01/2018 Movement disorder 09/29/2012 06/01/2018 Abdominal pain 07/16/2011 02/08/2018 Esophageal reflux 05/07/2006 03/12/2007 Unspecified constipation 03/26/2006 007 Gastrostomy complication, 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 03/12/2007 Feeding difficulties and mismanagement 6 03/12/2007 Lxal-I-fiwndc-D-aspartate (NMDA) receptor enceph alitis 10/27/2005 09/20/2021 Vitamin D deficiency 06/01/2018 Urinary incontinence 06/01/2018 Syncope 06/01/2018 Low blood pressure 06/01/2018 documented as of this encounter (statuses as of 01/28/2022) [facility] History of Past illness Narrative* Problem Noted Date Resolved Date Physical deconditioning 06/02/2018 09/21/19 22 Cerebral edema 05/31/2018 09/20/2021 Overview: S/p brain surgery Decadron weaned to 2mg BID today S/P brain surgery 02/12/2018 06/01/2018 Overview: Bilateral SEEG placed on 02/05/2018 Intractable epilepsy 11/26/2016 06/01/2018 Movement disorder 09/29/2012 06/01/2018 Abdominal pain 07/16/2011 02/08/2018 Esophageal reflux 05/07/2006 03/12/2007 Unspecified constipation 03/26/2006 007 Gastrostomy complication, 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 03/12/2007 Feeding difficulties and mismanagement 6 03/12/2007 Yfsp-G-vsrbik-D-aspartate (NMDA) receptor enceph alitis 10/27/2005 09/20/2021 Vitamin D deficiency 06/01/2018 Urinary incontinence 06/01/2018 Syncope 06/01/2018 Low blood pressure 06/01/2018 documented as of this encounter (statuses as of 02/27/2022) [facility] History of Past illness Narrative* Problem Noted Date Resolved Date Physical deconditioning 06/02/2018 09/21/19 22 Cerebral edema 05/31/2018 09/20/2021 Overview: S/p brain surgery Decadron weaned to 2mg BID today S/P brain surgery 02/12/2018 06/01/2018 Overview: Bilateral SEEG placed on 02/05/2018 Intractable epilepsy 11/26/2016 06/01/2018 Movement disorder 09/29/2012 06/01/2018 Abdominal pain 07/16/2011 02/08/2018 Esophageal reflux 05/07/2006 03/12/2007 Unspecified constipation 03/26/2006 007 Gastrostomy complication, 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 03/12/2007 Feeding difficulties and mismanagement 6 03/12/2007 Ogiv-N-fdxaaf-D-aspartate (NMDA) receptor enceph alitis 10/27/2005 09/20/2021 Vitamin D deficiency 06/01/2018 Urinary incontinence 06/01/2018 Syncope 06/01/2018 Low blood pressure 06/01/2018 documented as of this encounter (statuses as of 03/24/2022) [facility] History of Past illness Narrative* Problem Noted Date Resolved Date Physical deconditioning 06/02/2018 09/21/19 22 Cerebral edema 05/31/2018 09/20/2021 Overview: S/p brain surgery Decadron weaned to 2mg BID today S/P brain surgery 02/12/2018 06/01/2018 Overview: Bilateral SEEG placed on 02/05/2018 Intractable epilepsy 11/26/2016 06/01/2018 Movement disorder 09/29/2012 06/01/2018 Abdominal pain 07/16/2011 02/08/2018 Esophageal reflux 05/07/2006 03/12/2007 Unspecified constipation 03/26/2006 007 Gastrostomy complication, 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 03/12/2007 Feeding difficulties and mismanagement 6 03/12/2007 Weee-O-rtmdcu-D-aspartate (NMDA) receptor enceph alitis 10/27/2005 09/20/2021 Vitamin D deficiency 06/01/2018 Urinary incontinence 06/01/2018 Syncope 06/01/2018 Low blood pressure 06/01/2018 documented as of this encounter (statuses as of 03/26/2022) [facility] History of Past illness Narrative* Problem Noted Date Resolved Date Physical deconditioning 06/02/2018 09/21/19 22 Cerebral edema 05/31/2018 09/20/2021 Overview: S/p brain surgery Decadron weaned to 2mg BID today S/P brain surgery 02/12/2018 06/01/2018 Overview: Bilateral SEEG placed on 02/05/2018 Intractable epilepsy 11/26/2016 06/01/2018 Movement disorder 09/29/2012 06/01/2018 Abdominal pain 07/16/2011 02/08/2018 Esophageal reflux 05/07/2006 03/12/2007 Unspecified constipation 03/26/2006 007 Gastrostomy complication, 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 03/12/2007 Feeding difficulties and mismanagement 6 03/12/2007 Ijwv-W-gyylxb-D-aspartate (NMDA) receptor enceph alitis 10/27/2005 09/20/2021 Vitamin D deficiency 06/01/2018 Urinary incontinence 06/01/2018 Syncope 06/01/2018 Low blood pressure 06/01/2018 documented as of this encounter (statuses as of 04/10/2022) [facility] History of Past illness Narrative* Problem Noted Date Resolved Date Physical deconditioning 06/02/2018 09/21/19 22 Cerebral edema 05/31/2018 09/20/2021 Overview: S/p brain surgery Decadron weaned to 2mg BID today S/P brain surgery 02/12/2018 06/01/2018 Overview: Bilateral SEEG placed on 02/05/2018 Intractable epilepsy 11/26/2016 06/01/2018 Movement disorder 09/29/2012 06/01/2018 Abdominal pain 07/16/2011 02/08/2018 Esophageal reflux 05/07/2006 03/12/2007 Unspecified constipation 03/26/2006 007 Gastrostomy complication, 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 03/12/2007 Feeding difficulties and mismanagement 6 03/12/2007 Muzg-N-trkndq-D-aspartate (NMDA) receptor enceph alitis 10/27/2005 09/20/2021 Vitamin D deficiency 06/01/2018 Urinary incontinence 06/01/2018 Syncope 06/01/2018 Low blood pressure 06/01/2018 documented as of this encounter (statuses as of 04/30/2022) [facility] History of Past illness Narrative* Problem Noted Date Resolved Date Physical deconditioning 06/02/2018 09/21/19 22 Cerebral edema 05/31/2018 09/20/2021 Overview: S/p brain surgery Decadron weaned to 2mg BID today S/P brain surgery 02/12/2018 06/01/2018 Overview: Bilateral SEEG placed on 02/05/2018 Intractable epilepsy 11/26/2016 06/01/2018 Movement disorder 09/29/2012 06/01/2018 Abdominal pain 07/16/2011 02/08/2018 Esophageal reflux 05/07/2006 03/12/2007 Unspecified constipation 03/26/2006 007 Gastrostomy complication, 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 03/12/2007 Feeding difficulties and mismanagement 6 03/12/2007 Tdyx-N-dqjkmn-D-aspartate (NMDA) receptor enceph alitis 10/27/2005 09/20/2021 Vitamin D deficiency 06/01/2018 Urinary incontinence 06/01/2018 Syncope 06/01/2018 Low blood pressure 06/01/2018 documented as of this encounter (statuses as of 05/06/2022) [facility] History of Past illness Narrative* Problem Noted Date Resolved Date Physical deconditioning 06/02/2018 09/21/19 22 Cerebral edema 05/31/2018 09/20/2021 Overview: S/p brain surgery Decadron weaned to 2mg BID today S/P brain surgery 02/12/2018 06/01/2018 Overview: Bilateral SEEG placed on 02/05/2018 Intractable epilepsy 11/26/2016 06/01/2018 Movement disorder 09/29/2012 06/01/2018 Abdominal pain 07/16/2011 02/08/2018 Esophageal reflux 05/07/2006 03/12/2007 Unspecified constipation 03/26/2006 007 Gastrostomy complication, 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 03/12/2007 Feeding difficulties and mismanagement 6 03/12/2007 Jcer-R-pzbfah-D-aspartate (NMDA) receptor enceph alitis 10/27/2005 09/20/2021 Vitamin D deficiency 06/01/2018 Urinary incontinence 06/01/2018 Syncope 06/01/2018 Low blood pressure 06/01/2018 documented as of this encounter (statuses as of 05/07/2022) [facility]2019 History of Past illness Narrative* Problem Noted Date Resolved Date Physical deconditioning 06/02/2018 09/21/19 22 Cerebral edema 05/31/2018 09/20/2021 Overview: S/p brain surgery Decadron weaned to 2mg BID today S/P brain surgery 02/12/2018 06/01/2018 Overview: Bilateral SEEG placed on 02/05/2018 Intractable epilepsy 11/26/2016 06/01/2018 Movement disorder 09/29/2012 06/01/2018 Abdominal pain 07/16/2011 02/08/2018 Esophageal reflux 05/07/2006 03/12/2007 Unspecified constipation 03/26/2006 007 Gastrostomy complication, 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 03/12/2007 Feeding difficulties and mismanagement 6 03/12/2007 Turk-S-xhsbea-D-aspartate (NMDA) receptor enceph alitis 10/27/2005 09/20/2021 Vitamin D deficiency 06/01/2018 Urinary incontinence 06/01/2018 Syncope 06/01/2018 Low blood pressure 06/01/2018 documented as of this encounter (statuses as of 05/07/2022) [facility]2019 History of Past illness Narrative* Problem Noted Date Resolved Date Physical deconditioning 06/02/2018 09/21/19 22 Cerebral edema 05/31/2018 09/20/2021 Overview: S/p brain surgery Decadron weaned to 2mg BID today S/P brain surgery 02/12/2018 06/01/2018 Overview: Bilateral SEEG placed on 02/05/2018 Intractable epilepsy 11/26/2016 06/01/2018 Movement disorder 09/29/2012 06/01/2018 Abdominal pain 07/16/2011 02/08/2018 Esophageal reflux 05/07/2006 03/12/2007 Unspecified constipation 03/26/2006 007 Gastrostomy complication, 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 03/12/2007 Feeding difficulties and mismanagement 6 03/12/2007 Fyqd-U-goegmt-D-aspartate (NMDA) receptor enceph alitis 10/27/2005 09/20/2021 Vitamin D deficiency 06/01/2018 Urinary incontinence 06/01/2018 Syncope 06/01/2018 Low blood pressure 06/01/2018 documented as of this encounter (statuses as of 05/07/2022) [facility]2019 History of Past illness Narrative* Problem Noted Date Resolved Date Physical deconditioning 06/02/2018 09/21/19 22 Cerebral edema 05/31/2018 09/20/2021 Overview: S/p brain surgery Decadron weaned to 2mg BID today S/P brain surgery 02/12/2018 06/01/2018 Overview: Bilateral SEEG placed on 02/05/2018 Intractable epilepsy 11/26/2016 06/01/2018 Movement disorder 09/29/2012 06/01/2018 Abdominal pain 07/16/2011 02/08/2018 Esophageal reflux 05/07/2006 03/12/2007 Unspecified constipation 03/26/2006 007 Gastrostomy complication, 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 03/12/2007 Feeding difficulties and mismanagement 6 03/12/2007 Mred-S-szkipp-D-aspartate (NMDA) receptor enceph alitis 10/27/2005 09/20/2021 Vitamin D deficiency 06/01/2018 Urinary incontinence 06/01/2018 Syncope 06/01/2018 Low blood pressure 06/01/2018 documented as of this encounter (statuses as of 05/16/2022) [facility] History of Past illness Narrative* Problem Noted Date Resolved Date Physical deconditioning 06/02/2018 09/21/19 22 Cerebral edema 05/31/2018 09/20/2021 Overview: S/p brain surgery Decadron weaned to 2mg BID today S/P brain surgery 02/12/2018 06/01/2018 Overview: Bilateral SEEG placed on 02/05/2018 Intractable epilepsy 11/26/2016 06/01/2018 Movement disorder 09/29/2012 06/01/2018 Abdominal pain 07/16/2011 02/08/2018 Esophageal reflux 05/07/2006 03/12/2007 Unspecified constipation 03/26/2006 007 Gastrostomy complication, 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 03/12/2007 Feeding difficulties and mismanagement 6 03/12/2007 Azhz-D-cxwbnt-D-aspartate (NMDA) receptor enceph alitis 10/27/2005 09/20/2021 Vitamin D deficiency 06/01/2018 Urinary incontinence 06/01/2018 Syncope 06/01/2018 Low blood pressure 06/01/2018 documented as of this encounter (statuses as of 05/17/2022) [facility]2019 History of Past illness Narrative* Problem Noted Date Resolved Date Physical deconditioning 06/02/2018 09/21/19 22 Cerebral edema 05/31/2018 09/20/2021 Overview: S/p brain surgery Decadron weaned to 2mg BID today S/P brain surgery 02/12/2018 06/01/2018 Overview: Bilateral SEEG placed on 02/05/2018 Intractable epilepsy 11/26/2016 06/01/2018 Movement disorder 09/29/2012 06/01/2018 Abdominal pain 07/16/2011 02/08/2018 Esophageal reflux 05/07/2006 03/12/2007 Unspecified constipation 03/26/2006 007 Gastrostomy complication, 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 03/12/2007 Feeding difficulties and mismanagement 6 03/12/2007 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 09/20/2021 Vitamin D deficiency 06/01/2018 Urinary incontinence 06/01/2018 Syncope 06/01/2018 Low blood pressure 06/01/2018 documented as of this encounter (statuses as of 05/17/2022) [facility] History of Past illness Narrative* Problem Noted Date Resolved Date Physical deconditioning 06/02/2018 09/21/19 22 Cerebral edema 05/31/2018 09/20/2021 Overview: S/p brain surgery Decadron weaned to 2mg BID today S/P brain surgery 02/12/2018 06/01/2018 Overview: Bilateral SEEG placed on 02/05/2018 Intractable epilepsy 11/26/2016 06/01/2018 Movement disorder 09/29/2012 06/01/2018 Abdominal pain 07/16/2011 02/08/2018 Esophageal reflux 05/07/2006 03/12/2007 Unspecified constipation 03/26/2006 007 Gastrostomy complication, 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 03/12/2007 Feeding difficulties and mismanagement 6 03/12/2007 Dcvk-N-kuvtff-D-aspartate (NMDA) receptor enceph alitis 10/27/2005 09/20/2021 Vitamin D deficiency 06/01/2018 Urinary incontinence 06/01/2018 Syncope 06/01/2018 Low blood pressure 06/01/2018 documented as of this encounter (statuses as of 06/09/2022) [facility] History of Past illness Narrative* Problem Noted Date Resolved Date Physical deconditioning 06/02/2018 09/21/19 22 Cerebral edema 05/31/2018 09/20/2021 Overview: S/p brain surgery Decadron weaned to 2mg BID today S/P brain surgery 02/12/2018 06/01/2018 Overview: Bilateral SEEG placed on 02/05/2018 Intractable epilepsy 11/26/2016 06/01/2018 Movement disorder 09/29/2012 06/01/2018 Abdominal pain 07/16/2011 02/08/2018 Esophageal reflux 05/07/2006 03/12/2007 Unspecified constipation 03/26/2006 007 Gastrostomy complication, 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 03/12/2007 Feeding difficulties and mismanagement 6 03/12/2007 Jima-O-byorok-D-aspartate (NMDA) receptor enceph alitis 10/27/2005 09/20/2021 Vitamin D deficiency 06/01/2018 Urinary incontinence 06/01/2018 Syncope 06/01/2018 Low blood pressure 06/01/2018 documented as of this encounter (statuses as of 06/17/2022) [facility] History of Past illness Narrative* Problem Noted Date Resolved Date Physical deconditioning 06/02/2018 09/21/19 22 Cerebral edema 05/31/2018 09/20/2021 Overview: S/p brain surgery Decadron weaned to 2mg BID today S/P brain surgery 02/12/2018 06/01/2018 Overview: Bilateral SEEG placed on 02/05/2018 Intractable epilepsy 11/26/2016 06/01/2018 Movement disorder 09/29/2012 06/01/2018 Abdominal pain 07/16/2011 02/08/2018 Esophageal reflux 05/07/2006 03/12/2007 Unspecified constipation 03/26/2006 007 Gastrostomy complication, 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 03/12/2007 Feeding difficulties and mismanagement 6 03/12/2007 Yxsw-Z-oaccfu-D-aspartate (NMDA) receptor enceph alitis 10/27/2005 09/20/2021 Vitamin D deficiency 06/01/2018 Urinary incontinence 06/01/2018 Syncope 06/01/2018 Low blood pressure 06/01/2018 documented as of this encounter (statuses as of 06/19/2022) [facility] History of Past illness Narrative* Problem Noted Date Resolved Date Physical deconditioning 06/02/2018 09/21/19 22 Cerebral edema 05/31/2018 09/20/2021 Overview: S/p brain surgery Decadron weaned to 2mg BID today S/P brain surgery 02/12/2018 06/01/2018 Overview: Bilateral SEEG placed on 02/05/2018 Intractable epilepsy 11/26/2016 06/01/2018 Movement disorder 09/29/2012 06/01/2018 Abdominal pain 07/16/2011 02/08/2018 Esophageal reflux 05/07/2006 03/12/2007 Unspecified constipation 03/26/2006 007 Gastrostomy complication, 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 03/12/2007 Feeding difficulties and mismanagement 6 03/12/2007 Psgj-H-ikrsth-D-aspartate (NMDA) receptor enceph alitis 10/27/2005 09/20/2021 Vitamin D deficiency 06/01/2018 Urinary incontinence 06/01/2018 Syncope 06/01/2018 Low blood pressure 06/01/2018 documented as of this encounter (statuses as of 06/20/2022) [facility] History of Past illness Narrative* Problem Noted Date Resolved Date Physical deconditioning 06/02/2018 09/21/19 22 Cerebral edema 05/31/2018 09/20/2021 Overview: S/p brain surgery Decadron weaned to 2mg BID today S/P brain surgery 02/12/2018 06/01/2018 Overview: Bilateral SEEG placed on 02/05/2018 Intractable epilepsy 11/26/2016 06/01/2018 Movement disorder 09/29/2012 06/01/2018 Abdominal pain 07/16/2011 02/08/2018 Esophageal reflux 05/07/2006 03/12/2007 Unspecified constipation 03/26/2006 007 Gastrostomy complication, 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 03/12/2007 Feeding difficulties and mismanagement 6 03/12/2007 Vbub-I-whskgn-D-aspartate (NMDA) receptor enceph alitis 10/27/2005 09/20/2021 Vitamin D deficiency 06/01/2018 Urinary incontinence 06/01/2018 Syncope 06/01/2018 Low blood pressure 06/01/2018 documented as of this encounter (statuses as of 06/22/2022) [facility] History of Past illness Narrative* Problem Noted Date Resolved Date Physical deconditioning 06/02/2018 09/21/19 22 Cerebral edema 05/31/2018 09/20/2021 Overview: S/p brain surgery Decadron weaned to 2mg BID today S/P brain surgery 02/12/2018 06/01/2018 Overview: Bilateral SEEG placed on 02/05/2018 Intractable epilepsy 11/26/2016 06/01/2018 Movement disorder 09/29/2012 06/01/2018 Abdominal pain 07/16/2011 02/08/2018 Esophageal reflux 05/07/2006 03/12/2007 Unspecified constipation 03/26/2006 007 Gastrostomy complication, 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 03/12/2007 Feeding difficulties and mismanagement 6 03/12/2007 Lhtr-S-emuvjn-D-aspartate (NMDA) receptor enceph alitis 10/27/2005 09/20/2021 Vitamin D deficiency 06/01/2018 Urinary incontinence 06/01/2018 Syncope 06/01/2018 Low blood pressure 06/01/2018 documented as of this encounter (statuses as of 06/26/2022) [facility] History of Past illness Narrative* Problem Noted Date Resolved Date Physical deconditioning 06/02/2018 09/21/19 22 Cerebral edema 05/31/2018 09/20/2021 Overview: S/p brain surgery Decadron weaned to 2mg BID today S/P brain surgery 02/12/2018 06/01/2018 Overview: Bilateral SEEG placed on 02/05/2018 Intractable epilepsy 11/26/2016 06/01/2018 Movement disorder 09/29/2012 06/01/2018 Abdominal pain 07/16/2011 02/08/2018 Esophageal reflux 05/07/2006 03/12/2007 Unspecified constipation 03/26/2006 007 Gastrostomy complication, 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 03/12/2007 Feeding difficulties and mismanagement 6 03/12/2007 Aiqs-B-mynhjd-D-aspartate (NMDA) receptor enceph alitis 10/27/2005 09/20/2021 Vitamin D deficiency 06/01/2018 Urinary incontinence 06/01/2018 Syncope 06/01/2018 Low blood pressure 06/01/2018 documented as of this encounter (statuses as of 07/02/2022) [facility] History of Past illness Narrative* Problem Noted Date Resolved Date Physical deconditioning 06/02/2018 09/21/19 22 Cerebral edema 05/31/2018 09/20/2021 Overview: S/p brain surgery Decadron weaned to 2mg BID today S/P brain surgery 02/12/2018 06/01/2018 Overview: Bilateral SEEG placed on 02/05/2018 Intractable epilepsy 11/26/2016 06/01/2018 Movement disorder 09/29/2012 06/01/2018 Abdominal pain 07/16/2011 02/08/2018 Esophageal reflux 05/07/2006 03/12/2007 Unspecified constipation 03/26/2006 007 Gastrostomy complication, 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 03/12/2007 Feeding difficulties and mismanagement 6 03/12/2007 Wrfe-T-lqcwkd-D-aspartate (NMDA) receptor enceph alitis 10/27/2005 09/20/2021 Vitamin D deficiency 06/01/2018 Urinary incontinence 06/01/2018 Syncope 06/01/2018 Low blood pressure 06/01/2018 documented as of this encounter (statuses as of 07/03/2022) [facility] History of Past illness Narrative* Problem Noted Date Resolved Date Physical deconditioning 06/02/2018 09/21/19 22 Cerebral edema 05/31/2018 09/20/2021 Overview: S/p brain surgery Decadron weaned to 2mg BID today S/P brain surgery 02/12/2018 06/01/2018 Overview: Bilateral SEEG placed on 02/05/2018 Intractable epilepsy 11/26/2016 06/01/2018 Movement disorder 09/29/2012 06/01/2018 Abdominal pain 07/16/2011 02/08/2018 Esophageal reflux 05/07/2006 03/12/2007 Unspecified constipation 03/26/2006 007 Gastrostomy complication, 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 03/12/2007 Feeding difficulties and mismanagement 6 03/12/2007 Ddyc-O-kfvjvl-D-aspartate (NMDA) receptor enceph alitis 10/27/2005 09/20/2021 Vitamin D deficiency 06/01/2018 Urinary incontinence 06/01/2018 Syncope 06/01/2018 Low blood pressure 06/01/2018 documented as of this encounter (statuses as of 07/03/2022) [facility] History of Past illness Narrative* Problem Noted Date Resolved Date Physical deconditioning 06/02/2018 09/21/19 22 Cerebral edema 05/31/2018 09/20/2021 Overview: S/p brain surgery Decadron weaned to 2mg BID today S/P brain surgery 02/12/2018 06/01/2018 Overview: Bilateral SEEG placed on 02/05/2018 Intractable epilepsy 11/26/2016 06/01/2018 Movement disorder 09/29/2012 06/01/2018 Abdominal pain 07/16/2011 02/08/2018 Esophageal reflux 05/07/2006 03/12/2007 Unspecified constipation 03/26/2006 007 Gastrostomy complication, 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 03/12/2007 Feeding difficulties and mismanagement 6 03/12/2007 Pvid-X-jgdouq-D-aspartate (NMDA) receptor enceph alitis 10/27/2005 09/20/2021 Vitamin D deficiency 06/01/2018 Urinary incontinence 06/01/2018 Syncope 06/01/2018 Low blood pressure 06/01/2018 documented as of this encounter (statuses as of 07/10/2022) [facility] History of Past illness Narrative* Problem Noted Date Resolved Date Physical deconditioning 06/02/2018 09/21/19 22 Cerebral edema 05/31/2018 09/20/2021 Overview: S/p brain surgery Decadron weaned to 2mg BID today S/P brain surgery 02/12/2018 06/01/2018 Overview: Bilateral SEEG placed on 02/05/2018 Intractable epilepsy 11/26/2016 06/01/2018 Movement disorder 09/29/2012 06/01/2018 Abdominal pain 07/16/2011 02/08/2018 Esophageal reflux 05/07/2006 03/12/2007 Unspecified constipation 03/26/2006 007 Gastrostomy complication, 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 03/12/2007 Feeding difficulties and mismanagement 6 03/12/2007 Indj-U-yktbkl-D-aspartate (NMDA) receptor enceph alitis 10/27/2005 09/20/2021 Vitamin D deficiency 06/01/2018 Urinary incontinence 06/01/2018 Syncope 06/01/2018 Low blood pressure 06/01/2018 documented as of this encounter (statuses as of 07/15/2022) [facility] History of Past illness Narrative* Problem Noted Date Resolved Date Physical deconditioning 06/02/2018 09/21/19 22 Cerebral edema 05/31/2018 09/20/2021 Overview: S/p brain surgery Decadron weaned to 2mg BID today S/P brain surgery 02/12/2018 06/01/2018 Overview: Bilateral SEEG placed on 02/05/2018 Intractable epilepsy 11/26/2016 06/01/2018 Movement disorder 09/29/2012 06/01/2018 Abdominal pain 07/16/2011 02/08/2018 Esophageal reflux 05/07/2006 03/12/2007 Unspecified constipation 03/26/2006 007 Gastrostomy complication, 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 03/12/2007 Feeding difficulties and mismanagement 6 03/12/2007 Mjiy-Z-rjpklb-D-aspartate (NMDA) receptor enceph alitis 10/27/2005 09/20/2021 Vitamin D deficiency 06/01/2018 Urinary incontinence 06/01/2018 Syncope 06/01/2018 Low blood pressure 06/01/2018 documented as of this encounter (statuses as of 07/25/2022) [facility] History of Past illness Narrative* Problem Noted Date Resolved Date Physical deconditioning 06/02/2018 09/21/19 22 Cerebral edema 05/31/2018 09/20/2021 Overview: S/p brain surgery Decadron weaned to 2mg BID today S/P brain surgery 02/12/2018 06/01/2018 Overview: Bilateral SEEG placed on 02/05/2018 Intractable epilepsy 11/26/2016 06/01/2018 Movement disorder 09/29/2012 06/01/2018 Abdominal pain 07/16/2011 02/08/2018 Esophageal reflux 05/07/2006 03/12/2007 Unspecified constipation 03/26/2006 007 Gastrostomy complication, 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 03/12/2007 Feeding difficulties and mismanagement 6 03/12/2007 Tfed-E-fplidq-D-aspartate (NMDA) receptor enceph alitis 10/27/2005 09/20/2021 Vitamin D deficiency 06/01/2018 Urinary incontinence 06/01/2018 Syncope 06/01/2018 Low blood pressure 06/01/2018 documented as of this encounter (statuses as of 10/23/2022) [facility]2019 History of Past illness Narrative* Problem Noted Date Diagnosed Date Resolved Date Physical deconditioning 06/02/201808/26 Cerebral edema 05/31/2018 09/20/2021 Overview: S/p brain surgery Decadron weaned to 2mg BID today S/P brain surgery 02/12/2018 06/01/2018 Overview: Bilateral SEEG placed on 02/05/2018 Intractable epilepsy 11/26/2016 019 Movement disorder 09/29/2012 06/01/2018 Abdominal pain 07/16/2011 02/08/2018 Esophageal reflux 05/07/2006 03/12/2007 Unspecified constipation 03/26/2006 Gastrostomy complication, 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 03/12/2007 Feeding difficulties and mismanagement 12/11/2005 03/12/2007 Xota-I-kxalfk-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 09/20/2021 Vitamin D deficiency 019 Urinary incontinence 019 Syncope 06/01/2018 Low blood pressure 9 documented as of this encounter (statuses as of 11/04/2022) [facility] History of Past illness Narrative* Problem Noted Date Diagnosed Date Resolved Date Physical deconditioning 06/02/201808/26 Cerebral edema 05/31/2018 09/20/2021 Overview: S/p brain surgery Decadron weaned to 2mg BID today S/P brain surgery 02/12/2018 06/01/2018 Overview: Bilateral SEEG placed on 02/05/2018 Intractable epilepsy 11/26/2016 019 Movement disorder 09/29/2012 06/01/2018 Abdominal pain 07/16/2011 02/08/2018 Esophageal reflux 05/07/2006 03/12/2007 Unspecified constipation 03/26/2006 Gastrostomy complication, 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 03/12/2007 Feeding difficulties and mismanagement 12/11/2005 03/12/2007 Rdpi-U-ofxxtf-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 09/20/2021 Vitamin D deficiency 019 Urinary incontinence 019 Syncope 06/01/2018 Low blood pressure 9 documented as of this encounter (statuses as of 11/04/2022) [facility] History of Past illness Narrative* Problem Noted Date Diagnosed Date Resolved Date Physical deconditioning 06/02/201808/26 Cerebral edema 05/31/2018 09/20/2021 Overview: S/p brain surgery Decadron weaned to 2mg BID today S/P brain surgery 02/12/2018 06/01/2018 Overview: Bilateral SEEG placed on 02/05/2018 Intractable epilepsy 11/26/2016 019 Movement disorder 09/29/2012 06/01/2018 Abdominal pain 07/16/2011 02/08/2018 Esophageal reflux 05/07/2006 03/12/2007 Unspecified constipation 03/26/2006 Gastrostomy complication, 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 03/12/2007 Feeding difficulties and mismanagement 12/11/2005 03/12/2007 Ujqb-J-qhbstm-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 09/20/2021 Vitamin D deficiency 019 Urinary incontinence 019 Syncope 06/01/2018 Low blood pressure 9 documented as of this encounter (statuses as of 11/07/2022) [facility] History of Past illness Narrative* Problem Noted Date Diagnosed Date Resolved Date Physical deconditioning 06/02/201808/26 Cerebral edema 05/31/2018 09/20/2021 Overview: S/p brain surgery Decadron weaned to 2mg BID today S/P brain surgery 02/12/2018 06/01/2018 Overview: Bilateral SEEG placed on 02/05/2018 Intractable epilepsy 11/26/2016 019 Movement disorder 09/29/2012 06/01/2018 Abdominal pain 07/16/2011 02/08/2018 Esophageal reflux 05/07/2006 03/12/2007 Unspecified constipation 03/26/2006 Gastrostomy complication, 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 03/12/2007 Feeding difficulties and mismanagement 12/11/2005 03/12/2007 Olps-C-rquosu-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 09/20/2021 Vitamin D deficiency 019 Urinary incontinence 019 Syncope 06/01/2018 Low blood pressure 9 documented as of this encounter (statuses as of 11/07/2022) [facility] History of Past illness Narrative* Problem Noted Date Diagnosed Date Resolved Date Physical deconditioning 06/02/201808/26 Cerebral edema 05/31/2018 09/20/2021 Overview: S/p brain surgery Decadron weaned to 2mg BID today S/P brain surgery 02/12/2018 06/01/2018 Overview: Bilateral SEEG placed on 02/05/2018 Intractable epilepsy 11/26/2016 019 Movement disorder 09/29/2012 06/01/2018 Abdominal pain 07/16/2011 02/08/2018 Esophageal reflux 05/07/2006 03/12/2007 Unspecified constipation 03/26/2006 Gastrostomy complication, 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 03/12/2007 Feeding difficulties and mismanagement 12/11/2005 03/12/2007 Tzmy-W-dyceer-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 09/20/2021 Vitamin D deficiency 019 Urinary incontinence 019 Syncope 06/01/2018 Low blood pressure 9 documented as of this encounter (statuses as of 11/07/2022) [facility] History of Past illness Narrative* Problem Noted Date Diagnosed Date Resolved Date Physical deconditioning 06/02/201808/26 Cerebral edema 05/31/2018 09/20/2021 Overview: S/p brain surgery Decadron weaned to 2mg BID today S/P brain surgery 02/12/2018 06/01/2018 Overview: Bilateral SEEG placed on 02/05/2018 Intractable epilepsy 11/26/2016 019 Movement disorder 09/29/2012 06/01/2018 Abdominal pain 07/16/2011 02/08/2018 Esophageal reflux 05/07/2006 03/12/2007 Unspecified constipation 03/26/2006 Gastrostomy complication, 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 03/12/2007 Feeding difficulties and mismanagement 12/11/2005 03/12/2007 Acqf-O-ceonrw-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 09/20/2021 Vitamin D deficiency 019 Urinary incontinence 019 Syncope 06/01/2018 Low blood pressure 9 documented as of this encounter (statuses as of 11/10/2022) [facility] History of Past illness Narrative* Problem Noted Date Diagnosed Date Resolved Date Physical deconditioning 06/02/201808/26 Cerebral edema 05/31/2018 09/20/2021 Overview: S/p brain surgery Decadron weaned to 2mg BID today S/P brain surgery 02/12/2018 06/01/2018 Overview: Bilateral SEEG placed on 02/05/2018 Intractable epilepsy 11/26/2016 019 Movement disorder 09/29/2012 06/01/2018 Abdominal pain 07/16/2011 02/08/2018 Esophageal reflux 05/07/2006 03/12/2007 Unspecified constipation 03/26/2006 Gastrostomy complication, 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 03/12/2007 Feeding difficulties and mismanagement 12/11/2005 03/12/2007 Znno-B-ikrdom-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 09/20/2021 Vitamin D deficiency 019 Urinary incontinence 019 Syncope 06/01/2018 Low blood pressure 9 documented as of this encounter (statuses as of 11/11/2022) [facility] History of Past illness Narrative* Problem Noted Date Diagnosed Date Resolved Date Physical deconditioning 06/02/201808/26 Cerebral edema 05/31/2018 09/20/2021 Overview: S/p brain surgery Decadron weaned to 2mg BID today S/P brain surgery 02/12/2018 06/01/2018 Overview: Bilateral SEEG placed on 02/05/2018 Intractable epilepsy 11/26/2016 019 Movement disorder 09/29/2012 06/01/2018 Abdominal pain 07/16/2011 02/08/2018 Esophageal reflux 05/07/2006 03/12/2007 Unspecified constipation 03/26/2006 Gastrostomy complication, 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 03/12/2007 Feeding difficulties and mismanagement 12/11/2005 03/12/2007 Yvqe-T-vmtqkn-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 09/20/2021 Vitamin D deficiency 019 Urinary incontinence 019 Syncope 06/01/2018 Low blood pressure 9 documented as of this encounter (statuses as of 11/29/2022) [facility] History of Past illness Narrative* Problem Noted Date Diagnosed Date Resolved Date Physical deconditioning 06/02/201808/26 Cerebral edema 05/31/2018 09/20/2021 Overview: S/p brain surgery Decadron weaned to 2mg BID today S/P brain surgery 02/12/2018 06/01/2018 Overview: Bilateral SEEG placed on 02/05/2018 Intractable epilepsy 11/26/2016 019 Movement disorder 09/29/2012 06/01/2018 Abdominal pain 07/16/2011 02/08/2018 Esophageal reflux 05/07/2006 03/12/2007 Unspecified constipation 03/26/2006 Gastrostomy complication, 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 03/12/2007 Feeding difficulties and mismanagement 12/11/2005 03/12/2007 Yduf-H-sacmxo-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 09/20/2021 Vitamin D deficiency 019 Urinary incontinence 019 Syncope 06/01/2018 Low blood pressure 9 documented as of this encounter (statuses as of 12/12/2022) [facility] History of Past illness Narrative* Problem Noted Date Diagnosed Date Resolved Date Physical deconditioning 06/02/201808/26 Cerebral edema 05/31/2018 09/20/2021 Overview: S/p brain surgery Decadron weaned to 2mg BID today S/P brain surgery 02/12/2018 06/01/2018 Overview: Bilateral SEEG placed on 02/05/2018 Intractable epilepsy 11/26/2016 019 Movement disorder 09/29/2012 06/01/2018 Abdominal pain 07/16/2011 02/08/2018 Esophageal reflux 05/07/2006 03/12/2007 Unspecified constipation 03/26/2006 Gastrostomy complication, 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 03/12/2007 Feeding difficulties and mismanagement 12/11/2005 03/12/2007 Anyx-D-goapic-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 09/20/2021 Vitamin D deficiency 019 Urinary incontinence 019 Syncope 06/01/2018 Low blood pressure 9 documented as of this encounter (statuses as of 01/08/2023) [facility] History of Past illness Narrative* Problem Noted Date Diagnosed Date Resolved Date Physical deconditioning 06/02/201808/26 Cerebral edema 05/31/2018 09/20/2021 Overview: S/p brain surgery Decadron weaned to 2mg BID today S/P brain surgery 02/12/2018 06/01/2018 Overview: Bilateral SEEG placed on 02/05/2018 Intractable epilepsy 11/26/2016 019 Movement disorder 09/29/2012 06/01/2018 Abdominal pain 07/16/2011 02/08/2018 Esophageal reflux 05/07/2006 03/12/2007 Unspecified constipation 03/26/2006 Gastrostomy complication, 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 03/12/2007 Feeding difficulties and mismanagement 12/11/2005 03/12/2007 Fvxh-W-ozhhkb-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 09/20/2021 Vitamin D deficiency 019 Urinary incontinence 019 Syncope 06/01/2018 Low blood pressure 9 documented as of this encounter (statuses as of 05/10/2023) [facility] History of Past illness Narrative* Problem Noted Date Diagnosed Date Resolved Date Physical deconditioning 06/02/201808/26 Cerebral edema 05/31/2018 09/20/2021 Overview: S/p brain surgery Decadron weaned to 2mg BID today S/P brain surgery 02/12/2018 06/01/2018 Overview: Bilateral SEEG placed on 02/05/2018 Intractable epilepsy 11/26/2016 019 Movement disorder 09/29/2012 06/01/2018 Abdominal pain 07/16/2011 02/08/2018 Esophageal reflux 05/07/2006 03/12/2007 Unspecified constipation 03/26/2006 Gastrostomy complication, 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 03/12/2007 Feeding difficulties and mismanagement 12/11/2005 03/12/2007 Iawj-H-lubqzp-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 09/20/2021 Vitamin D deficiency 019 Urinary incontinence 019 Syncope 06/01/2018 Low blood pressure 9 documented as of this encounter (statuses as of 06/19/2023) [facility] History of Past illness Narrative* Problem Noted Date Diagnosed Date Resolved Date Physical deconditioning 06/02/201808/26 Cerebral edema 05/31/2018 09/20/2021 Overview: S/p brain surgery Decadron weaned to 2mg BID today S/P brain surgery 02/12/2018 06/01/2018 Overview: Bilateral SEEG placed on 02/05/2018 Intractable epilepsy 11/26/2016 019 Movement disorder 09/29/2012 06/01/2018 Abdominal pain 07/16/2011 02/08/2018 Esophageal reflux 05/07/2006 03/12/2007 Unspecified constipation 03/26/2006 Gastrostomy complication, 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 03/12/2007 Feeding difficulties and mismanagement 12/11/2005 03/12/2007 Dped-F-idpywy-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 09/20/2021 Vitamin D deficiency 019 Urinary incontinence 019 Syncope 06/01/2018 Low blood pressure 9 documented as of this encounter (statuses as of 06/29/2023) [facility] History of Past illness Narrative* Problem Noted Date Diagnosed Date Resolved Date Physical deconditioning 06/02/201808/26 Cerebral edema 05/31/2018 09/20/2021 Overview: S/p brain surgery Decadron weaned to 2mg BID today S/P brain surgery 02/12/2018 06/01/2018 Overview: Bilateral SEEG placed on 02/05/2018 Intractable epilepsy 11/26/2016 019 Movement disorder 09/29/2012 06/01/2018 Abdominal pain 07/16/2011 02/08/2018 Esophageal reflux 05/07/2006 03/12/2007 Unspecified constipation 03/26/2006 Gastrostomy complication, 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 03/12/2007 Feeding difficulties and mismanagement 12/11/2005 03/12/2007 Syhq-T-kxzsss-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 09/20/2021 Vitamin D deficiency 019 Urinary incontinence 019 Syncope 06/01/2018 Low blood pressure 9 documented as of this encounter (statuses as of 07/08/2023) [facility] History of Past illness Narrative* Problem Noted Date Diagnosed Date Resolved Date Physical deconditioning 06/02/201808/26 Cerebral edema 05/31/2018 09/20/2021 Overview: S/p brain surgery Decadron weaned to 2mg BID today S/P brain surgery 02/12/2018 06/01/2018 Overview: Bilateral SEEG placed on 02/05/2018 Intractable epilepsy 11/26/2016 019 Movement disorder 09/29/2012 06/01/2018 Abdominal pain 07/16/2011 02/08/2018 Esophageal reflux 05/07/2006 03/12/2007 Unspecified constipation 03/26/2006 Gastrostomy complication, 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 03/12/2007 Feeding difficulties and mismanagement 12/11/2005 03/12/2007 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 09/20/2021 Vitamin D deficiency 019 Urinary incontinence 019 Syncope 06/01/2018 Low blood pressure 9 documented as of this encounter (statuses as of 07/09/2023) [facility] History of Past illness Narrative* Problem Noted Date Diagnosed Date Resolved Date Physical deconditioning 06/02/201808/26 Cerebral edema 05/31/2018 09/20/2021 Overview: S/p brain surgery Decadron weaned to 2mg BID today S/P brain surgery 02/12/2018 06/01/2018 Overview: Bilateral SEEG placed on 02/05/2018 Intractable epilepsy 11/26/2016 019 Movement disorder 09/29/2012 06/01/2018 Abdominal pain 07/16/2011 02/08/2018 Esophageal reflux 05/07/2006 03/12/2007 Unspecified constipation 03/26/2006 Gastrostomy complication, 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 03/12/2007 Feeding difficulties and mismanagement 12/11/2005 03/12/2007 Fdiv-T-hmkchk-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 09/20/2021 Vitamin D deficiency 019 Urinary incontinence 019 Syncope 06/01/2018 Low blood pressure 9 documented as of this encounter (statuses as of 07/10/2023) [facility] History of Past illness Narrative* Problem Noted Date Diagnosed Date Resolved Date Physical deconditioning 06/02/201808/26 Cerebral edema 05/31/2018 09/20/2021 Overview: S/p brain surgery Decadron weaned to 2mg BID today S/P brain surgery 02/12/2018 06/01/2018 Overview: Bilateral SEEG placed on 02/05/2018 Intractable epilepsy 11/26/2016 019 Movement disorder 09/29/2012 06/01/2018 Abdominal pain 07/16/2011 02/08/2018 Esophageal reflux 05/07/2006 03/12/2007 Unspecified constipation 03/26/2006 Gastrostomy complication, 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 03/12/2007 Feeding difficulties and mismanagement 12/11/2005 03/12/2007 Jvuz-Z-xtoswv-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 09/20/2021 Vitamin D deficiency 019 Urinary incontinence 019 Syncope 06/01/2018 Low blood pressure 9 documented as of this encounter (statuses as of 08/04/2023) [facility] History of Past illness Narrative* Problem Noted Date Diagnosed Date Resolved Date Physical deconditioning 06/02/201808/26 Cerebral edema 05/31/2018 09/20/2021 Overview: S/p brain surgery Decadron weaned to 2mg BID today S/P brain surgery 02/12/2018 06/01/2018 Overview: Bilateral SEEG placed on 02/05/2018 Intractable epilepsy 11/26/2016 019 Movement disorder 09/29/2012 06/01/2018 Abdominal pain 07/16/2011 02/08/2018 Esophageal reflux 05/07/2006 03/12/2007 Unspecified constipation 03/26/2006 Gastrostomy complication, 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 03/12/2007 Feeding difficulties and mismanagement 12/11/2005 03/12/2007 Lqlb-M-bkrkmg-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 09/20/2021 Vitamin D deficiency 019 Urinary incontinence 019 Syncope 06/01/2018 Low blood pressure 9 documented as of this encounter (statuses as of 08/05/2023) [facility] History of Past illness Narrative* Problem Noted Date Diagnosed Date Resolved Date Physical deconditioning 06/02/201808/26 Cerebral edema 05/31/2018 09/20/2021 Overview: S/p brain surgery Decadron weaned to 2mg BID today S/P brain surgery 02/12/2018 06/01/2018 Overview: Bilateral SEEG placed on 02/05/2018 Intractable epilepsy 11/26/2016 019 Movement disorder 09/29/2012 06/01/2018 Abdominal pain 07/16/2011 02/08/2018 Esophageal reflux 05/07/2006 03/12/2007 Unspecified constipation 03/26/2006 Gastrostomy complication, 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 03/12/2007 Feeding difficulties and mismanagement 12/11/2005 03/12/2007 Guat-K-teyxan-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 09/20/2021 Vitamin D deficiency 019 Urinary incontinence 019 Syncope 06/01/2018 Low blood pressure 9 documented as of this encounter (statuses as of 08/05/2023) [facility] History of Past illness Narrative* Problem Noted Date Diagnosed Date Resolved Date Physical deconditioning 06/02/201808/26 Cerebral edema 05/31/2018 09/20/2021 Overview: S/p brain surgery Decadron weaned to 2mg BID today S/P brain surgery 02/12/2018 06/01/2018 Overview: Bilateral SEEG placed on 02/05/2018 Intractable epilepsy 11/26/2016 019 Movement disorder 09/29/2012 06/01/2018 Abdominal pain 07/16/2011 02/08/2018 Esophageal reflux 05/07/2006 03/12/2007 Unspecified constipation 03/26/2006 Gastrostomy complication, 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 03/12/2007 Feeding difficulties and mismanagement 12/11/2005 03/12/2007 Jkxi-H-ofhcvy-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 09/20/2021 Vitamin D deficiency 019 Urinary incontinence 019 Syncope 06/01/2018 Low blood pressure 9 documented as of this encounter (statuses as of 08/06/2023) [facility] History of Past illness Narrative* Problem Noted Date Diagnosed Date Resolved Date Physical deconditioning 06/02/201808/26 Cerebral edema 05/31/2018 09/20/2021 Overview: S/p brain surgery Decadron weaned to 2mg BID today S/P brain surgery 02/12/2018 06/01/2018 Overview: Bilateral SEEG placed on 02/05/2018 Intractable epilepsy 11/26/2016 019 Movement disorder 09/29/2012 06/01/2018 Abdominal pain 07/16/2011 02/08/2018 Esophageal reflux 05/07/2006 03/12/2007 Unspecified constipation 03/26/2006 Gastrostomy complication, 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 03/12/2007 Feeding difficulties and mismanagement 12/11/2005 03/12/2007 Xbga-T-trdwvm-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 09/20/2021 Vitamin D deficiency 019 Urinary incontinence 019 Syncope 06/01/2018 Low blood pressure 9 documented as of this encounter (statuses as of 08/12/2023) [facility] History of Past illness Narrative* Problem Noted Date Diagnosed Date Resolved Date Physical deconditioning 06/02/201808/26 Cerebral edema 05/31/2018 09/20/2021 Overview: S/p brain surgery Decadron weaned to 2mg BID today S/P brain surgery 02/12/2018 06/01/2018 Overview: Bilateral SEEG placed on 02/05/2018 Intractable epilepsy 11/26/2016 019 Movement disorder 09/29/2012 06/01/2018 Abdominal pain 07/16/2011 02/08/2018 Esophageal reflux 05/07/2006 03/12/2007 Unspecified constipation 03/26/2006 Gastrostomy complication, 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 03/12/2007 Feeding difficulties and mismanagement 12/11/2005 03/12/2007 Vohy-W-sjkncf-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 09/20/2021 Vitamin D deficiency 019 Urinary incontinence 019 Syncope 06/01/2018 Low blood pressure 9 documented as of this encounter (statuses as of 08/13/2023) [facility] History of Past illness Narrative* Problem Noted Date Diagnosed Date Resolved Date Physical deconditioning 06/02/201808/26 Cerebral edema 05/31/2018 09/20/2021 Overview: S/p brain surgery Decadron weaned to 2mg BID today S/P brain surgery 02/12/2018 06/01/2018 Overview: Bilateral SEEG placed on 02/05/2018 Intractable epilepsy 11/26/2016 019 Movement disorder 09/29/2012 06/01/2018 Abdominal pain 07/16/2011 02/08/2018 Esophageal reflux 05/07/2006 03/12/2007 Unspecified constipation 03/26/2006 Gastrostomy complication, 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 03/12/2007 Feeding difficulties and mismanagement 12/11/2005 03/12/2007 Yqxj-N-ltnuvt-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 09/20/2021 Vitamin D deficiency 019 Urinary incontinence 019 Syncope 06/01/2018 Low blood pressure 9 documented as of this encounter (statuses as of 08/14/2023) [facility] of Past illness Narrative* Problem Noted Date Resolved Date S/P brain surgery 02/12/2018 06/01/2018 Overview: Bilateral SEEG placed on 02/05/2018 Intractable epilepsy 11/26/2016 06/01/2018 Seizures 08/28/2015 06/01/2018 Movement disorder 09/29/2012 06/01/2018 Abdominal pain 07/16/2011 02/08/2018 Esophageal reflux 05/07/2006 03/12/2007 Unspecified constipation 03/26/2006 007 Gastrostomy complication, 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 03/12/2007 Feeding difficulties and mismanagement 6 03/12/2007 Vitamin D deficiency 06/01/2018 Urinary incontinence 06/01/2018 Syncope 06/01/2018 Low blood pressure 06/01/2018 documented as of this encounter (statuses as of 09/18/2021) [facility] of Past illness Narrative* Problem Noted Date Resolved Date S/P brain surgery 02/12/2018 06/01/2018 Overview: Bilateral SEEG placed on 02/05/2018 Intractable epilepsy 11/26/2016 06/01/2018 Seizures 08/28/2015 06/01/2018 Movement disorder 09/29/2012 06/01/2018 Abdominal pain 07/16/2011 02/08/2018 Esophageal reflux 05/07/2006 03/12/2007 Unspecified constipation 03/26/2006 007 Gastrostomy complication, 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 03/12/2007 Feeding difficulties and mismanagement 6 03/12/2007 Vitamin D deficiency 06/01/2018 Urinary incontinence 06/01/2018 Syncope 06/01/2018 Low blood pressure 06/01/2018 documented as of this encounter (statuses as of 09/18/2021) [facility] Past illness Narrative* Problem Noted Date Resolved Date S/P brain surgery 02/12/2018 06/01/2018 Overview: Bilateral SEEG placed on 02/05/2018 Intractable epilepsy 11/26/2016 06/01/2018 Seizures 08/28/2015 06/01/2018 Movement disorder 09/29/2012 06/01/2018 Abdominal pain 07/16/2011 02/08/2018 Esophageal reflux 05/07/2006 03/12/2007 Unspecified constipation 03/26/2006 007 Gastrostomy complication, 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 03/12/2007 Feeding difficulties and mismanagement 6 03/12/2007 Vitamin D deficiency 06/01/2018 Urinary incontinence 06/01/2018 Syncope 06/01/2018 Low blood pressure 06/01/2018 documented as of this encounter (statuses as of 09/19/2021) [facility] Past illness Narrative* Problem Noted Date Resolved Date S/P brain surgery 02/12/2018 06/01/2018 Overview: Bilateral SEEG placed on 02/05/2018 Intractable epilepsy 11/26/2016 06/01/2018 Seizures 08/28/2015 06/01/2018 Movement disorder 09/29/2012 06/01/2018 Abdominal pain 07/16/2011 02/08/2018 Esophageal reflux 05/07/2006 03/12/2007 Unspecified constipation 03/26/2006 007 Gastrostomy complication, 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 03/12/2007 Feeding difficulties and mismanagement 6 03/12/2007 Vitamin D deficiency 06/01/2018 Urinary incontinence 06/01/2018 Syncope 06/01/2018 Low blood pressure 06/01/2018 documented as of this encounter (statuses as of 09/19/2021) [facility] [facility]10-19-2018 History of Past illness Narrative* Problem Noted Date Resolved Date S/P brain surgery 02/12/2018 06/01/2018 Overview: Bilateral SEEG placed on 02/05/2018 Intractable epilepsy 11/26/2016 06/01/2018 Seizures 08/28/2015 06/01/2018 Movement disorder 09/29/2012 06/01/2018 Abdominal pain 07/16/2011 02/08/2018 Esophageal reflux 05/07/2006 03/12/2007 Unspecified constipation 03/26/2006 007 Gastrostomy complication, 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 03/12/2007 Feeding difficulties and mismanagement 6 03/12/2007 Vitamin D deficiency 06/01/2018 Urinary incontinence 06/01/2018 Syncope 06/01/2018 Low blood pressure 06/01/2018 documented as of this encounter (statuses as of 09/20/2021) [facility] 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) Localization-related (focal) (partial) epilepsy and epileptic syndromes with complex partial seizures, with intractable epilepsy Rrhr-K-eqllex-D-aspartate (NMDA) receptor encephalitis [facility] Diagnosis Balw-S-zxdsti-D-aspartate (NMDA) receptor encephalitis- Primary 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) Localization-related (focal) (partial) epilepsy and epileptic syndromes with complex partial seizures, with intractable epilepsy [facility] Diagnosis 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) Localization-related (focal) (partial) epilepsy and epileptic syndromes with complex partial seizures, with intractable epilepsy [facility] Diagnosis 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)- Primary Localization-related (focal) (partial) epilepsy and epileptic syndromes with complex partial seizures, with intractable epilepsy [facility] 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)- Primary Localization-related (focal) (partial) epilepsy and epileptic syndromes with complex partial seizures, with intractable epilepsy [facility] Diagnosis Encephalopathy- Primary Encephalopathy, unspecified Focal epilepsy with impairment of consciousness, intractable (HCC) Localization-related (focal) (partial) epilepsy and epileptic syndromes with simple partial seizures, with intractable epilepsy [facility] 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)- Primary Localization-related (focal) (partial) epilepsy and epileptic syndromes with complex partial seizures, with intractable epilepsy ADHD (attention deficit hyperactivity disorder), inattentive type Attention deficit disorder without mention of hyperactivity [facility] Diagnosis Encephalopathy Encephalopathy, unspecified Focal epilepsy with impairment of consciousness, intractable (HCC) Localization-related (focal) (partial) epilepsy and epileptic syndromes with simple partial seizures, with intractable epilepsy [facility] Diagnosis 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)- Primary Localization-related (focal) (partial) epilepsy and epileptic syndromes with complex partial seizures, with intractable epilepsy [facility] Diagnosis DMDD (disruptive mood dysregulation disorder) (HCC)- Primary Other specified episodic mood disorder [facility] Diagnosis 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) Localization-related (focal) (partial) epilepsy and epileptic syndromes with complex partial seizures, with intractable epilepsy Seizure (HCC) Other convulsions [facility] Diagnosis Intermittent explosive disorder- Primary [facility] Diagnosis Qklu-C-hgskov-D-aspartate (NMDA) receptor encephalitis- Primary Seizure-like activity (HCC) Other convulsions [facility] Diagnosis 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calized onset, not intractable, without status epilepticus (HCC)- Primary Hnka-Q-lxwvjm-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) Localization-related (focal) (partial) epilepsy and epileptic syndromes with complex partial seizures, with intractable epilepsy [facility] Diagnosis Generalized epilepsy (HCC)- Primary Unspecified epilepsy without mention of intractable epilepsy [facility] Diagnosis Partial epilepsy with intractable epilepsy (HCC) Localization-related (focal) (partial) epilepsy and epileptic syndromes with simple partial seizures, with intractable epilepsy 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 Other causes of encephalitis and encephalomyelitis Vitamin D deficiency Unspecified vitamin D deficiency [facility] Diagnosis 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 Pain of left lower extremity [facility] Diagnosis Txpr-I-tartbw-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) Localization-related (focal) (partial) epilepsy and epileptic syndromes with complex partial seizures, with intractable epilepsy [facility] Diagnosis H/O: encephalitis- Primary Personal history of infections of the central nervous system Pain of left lower extremity Demyelinating disease of central nervous system (HCC) Demyelinating disease of central nervous system, unspecified [facility] Diagnosis Pain of left lower extremity [facility] Diagnosis Pain of left lower extremity [facility] Diagnosis Ccih-W-iozqpd-D-aspartate (NMDA) receptor encephalitis- Primary [facility] Diagnosis Partial epilepsy with intractable epilepsy (HCC)- Primary Localization-related (focal) (partial) epilepsy and epileptic syndromes with simple partial seizures, with intractable epilepsy [facility] Diagnosis Anti-NMDA receptor encephalitis- Primary Other causes of encephalitis and encephalomyelitis [facility] Diagnosis Demyelinating disease of central nervous system (HCC) Demyelinating disease of central nervous system, unspecified [facility] Diagnosis Owac-L-kdgczp-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) Localization-related (focal) (partial) epilepsy and epileptic syndromes with complex partial seizures, with intractable epilepsy [facility] Diagnosis 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) Localization-related (focal) (partial) epilepsy and epileptic syndromes with complex partial seizures, with intractable epilepsy [facility] Diagnosis Generalized epilepsy (HCC) Unspecified epilepsy without mention of intractable epilepsy [facility] Diagnosis 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) Localization-related (focal) (partial) epilepsy and epileptic syndromes with complex partial seizures, with intractable epilepsy [facility] Diagnosis Lwug-X-mvasmi-D-aspartate (NMDA) receptor encephalitis- Primary 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) Localization-related (focal) (partial) epilepsy and epileptic syndromes with complex partial seizures, with intractable epilepsy [facility] Diagnosis Idoo-J-ytdgnh-D-aspartate (NMDA) receptor encephalitis- Primary Refractory epilepsy (HCC) Unspecified epilepsy with intractable epilepsy 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) Localization-related (focal) (partial) epilepsy and epileptic syndromes with complex partial seizures, with intractable epilepsy Generalized epilepsy (HCC) Unspecified epilepsy without mention of intractable epilepsy [facility] Diagnosis Viqg-Y-qajwbz-D-aspartate (NMDA) receptor encephalitis- Primary [facility] Diagnosis Nonspecific abnormal electrocardiogram (ECG) (EKG)- Primary Anti-NMDA receptor encephalitis Other causes of encephalitis and encephalomyelitis History of encephalitis Personal history of infections of the central nervous system S/P craniotomy Other postprocedural status [facility] Diagnosis Anti-NMDA receptor encephalitis- Primary Other causes of encephalitis and encephalomyelitis [facility] Diagnosis Jgdc-D-jdlrst-D-aspartate (NMDA) receptor encephalitis- Primary Tremor of right hand [facility] Diagnosis 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)- Primary Localization-related (focal) (partial) epilepsy and epileptic syndromes with complex partial seizures, with intractable epilepsy [facility] Diagnosis 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) Localization-related (focal) (partial) epilepsy and epileptic syndromes with complex partial seizures, with intractable epilepsy Atqq-E-umtwcw-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) Unspecified epilepsy with intractable epilepsy Generalized epilepsy (HCC) Unspecified epilepsy without mention of intractable epilepsy [facility] Diagnosis Bilateral kidney stones- Primary Calculus of kidney [facility] Diagnosis Bilateral kidney stones- Primary Calculus of kidney [facility] Diagnosis Anti-NMDAR encephalitis Other causes of encephalitis and encephalomyelitis Refractory epilepsy (HCC) Unspecified epilepsy with intractable epilepsy documented in this encounter [facility]* Diagnosis Anti-NMDA receptor encephalitis- Primary Other causes of encephalitis and encephalomyelitis documented [facility] this [facility]* Diagnosis Anti-NMDAR encephalitis Other causes of encephalitis and encephalomyelitis Refractory epilepsy (HCC) Unspecified epilepsy with intractable epilepsy documented [facility] this [facility]* Diagnosis Screening for genitourinary condition Screening for other and unspecified genitourinary condition [facility] Diagnosis Ggxq-L-pdqhld-D-aspartate (NMDA) receptor encephalitis- Primary [facility] Diagnosis Need for community resource- Primary documented in this encounter [facility] note* Diagnosis Needs assistance with community resources- Primary [facility]* Diagnosis Encounter for social work intervention- Primary documented in this encounter 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) Procedures EPIL TIARA SPONTANEOUS BRAIN ACTIVTY MAGNETOENCEPHALOGRAPHY SPON BRAIN ACTIVITY Yosef Price APRN.CNP [address] [place] [address] [address] [place] [address] Referral ID Status Reason Start Date Expiration Date Visits Requested Visits Authorized [id number] Pending Review Auto-Generat ed Referral 09/20/2021 09/20/2022 1 1 [facility] Diagnostic Procedure Only (Routine) - Closed Specialty Diagnoses / Procedures Referred By Jose Elias raines Referred To Contact XR IMAGING Diagnoses Pain of left lower extremity Procedures XR FEMUR GENERAL 2V AP/LAT LEFT RADIOLOGIC EXAMINATION FEMUR MINIMUM 2 VIEWS Michael Roper MD [address] [place] [address] Xr Imaging Referral ID Status Reason Start Date Expiration Date V isits Requested Visits Authorized [id number] Closed Auto-Generate d Referral 05/02/2022 06/01/2023 1 1 [facility] Diagnostic Procedure Only (Routine) - Closed Specialty Diagnoses / [facility] To Contact [facility] Diagnoses Pain of left lower extremity Procedures US DVT LOWER LT DUP-SCAN XTR VEINS UNILATERAL/LIMITED STUDY Michael Roper MD [address] [id number] [facility] Referral ID Status Reason Start Date Expiration Date V isits Requested Visits Authorized [id number] Closed Auto-Generate d Referral 05/02/2022 06/01/2023 1 1 [facility] ([facility] Outpatient Procedure (Routine) - Closed Specialty Diagnoses / Procedures [facility] Diagnoses Nonspecific abnormal electrocardiogram (ECG) (EKG) Procedures ECG COMPLETE ECG ROUTINE ECG W/LEAST 12 LDS W/I&R James Plascencia MD [address] [place] [address] [facility] [place] [address] [place] [address] Referral ID Status Reason Start Date Expiration Date V isits Requested Visits Authorized [id number] Closed Auto-Generate d Referral 11/18/2022 11/18/2023 1 1 [facility] Diagnostic Procedure Only (Routine) - Pending Review Specialty Diagnoses / Procedures [facility] To Contact [facility] IMAG[facility] Diagnoses Bilateral kidney stones Procedures US KIDNEY/BLADDER US RETROPERITONEAL REAL TIME W/IMAGE COMPLETE [facility] [address] [address] [place] [address] Referral ID Status Reason Start Date Expiration Date Visits Requested Visits Authorized [id number] Pending Review Auto-Generat ed Referral 08/04/2023 09/02/2024 1 1 [facility] N[facility]* Diagnostic Procedure Only (Routine) - Closed Specialty Diagnoses / Procedures Referred By Contac t Referred To Contact US IMAGING Diagnoses Pain of left lower extremity Procedures US DVT LOWER LT DUP-SCAN XTR VEINS UNILATERAL/LIMITED STUDY Michael Roper MD [address] [place] [address] [facility] Referral ID Status Reason Start Date Expiration Date V isits Requested Visits Authorized [id number] Closed Auto-Generate d Referral 05/02/2022 06/01/2023 1 1 [facility] Advance Directives Documents on File Type Date Recorded 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 Advance Directive(s) Advance Directive(s) 11/26/2016 10:57 PM Documents on File Type Date Recorded 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 Advance Directive(s) Advance Directive(s) 11/26/2016 10:57 PM Latest Code Status on File Code Status Date Activated Date Inactivated Comments Full Code 09/19/2021 5:39 PM Full Code Order Discussed With: Surrogate Decisi on Maker Latest Code Status on File Code Status Date Activated Date Inactivated Comments Full Code 09/19/2021 5:39 PM Latest Code Status on File Code Status Date Activated Date Inactivated Comments Full Code 09/19/2021 5:39 PM 09/21/2021 5:12 PM Latest Code Status on File Code Status Date Activated Date Inactivated Comments Full Code 09/19/2021 5:39 PM 09/21/2021 5:12 PM Latest Code Status on File Code Status Date Activated Date Inactivated Comments Full Code 09/19/2021 5:39 PM 09/21/2021 5:12 PM Question Answer Comments Full Code Order Discussed With: Surrogate Decisi on Maker Latest Code Status on File Code Status Date Activated Date Inactivated Comments Full Code 09/19/2021 5:39 PM 09/21/2021 5:12 PM Question Answer Comments Full Code Order Discussed With: Surrogate Decisi on Maker Latest Code Status on File Code Status Date Activated Date Inactivated Comments Full Code 03/15/2023 11:03 AM 03/16/2023 9:09 PM Question Answer Comments Full Code Order Discussed With: Discussion Not Medically Appropriate Code Status History Code Status Date Activated Date Inactivated Comments Full Code 09/19/2021 5:39 PM 09/21/2021 5:12 PM Question Answer Comments Full Code Order Discussed With: Surrogate Decisi on Maker Latest Code Status on File Code Status Date Activated Date Inactivated Comments Full Code 03/15/2023 11:03 AM 03/16/2023 9:09 PM Question Answer Comments Full Code Order Discussed With: Discussion Not Medically Appropriate Code Status History Code Status Date Activated Date Inactivated Comments Full Code 09/19/2021 5:39 PM 09/21/2021 5:12 PM Question Answer Comments Full Code Order Discussed With: Surrogate Decisi on Maker Date Activated Date Inactivated Comments 03/15/2023 11:03 AM 03/16/2023 9:09 PM Question Answer Comments Full Code Order Discussed With: Discussion Not M edically Appropriate Date Activated Date Inactivated Comments 09/19/2021 5:39 PM 09/21/2021 5:12 PM Question Answer Comments Full Code Order Discussed With: Surrogate Decisi on Maker Date Activated Date Inactivated Comments 03/15/2023 11:03 AM 03/16/2023 9:09 PM Question Answer Comments Full Code Order Discussed With: Discussion Not M edically Appropriate Date Activated Date Inactivated Comments 09/19/2021 5:39 PM 09/21/2021 5:12 PM Question Answer Comments Full Code Order Discussed With: Surrogate Decisi on Maker Reason for Referral Specialty Diagnoses / Procedures Referred By Contac t Referred To Contact Diagnoses 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 Kentrell Abdullahi MD [address] [place] [address] Referral ID Status Reason Start Date Expiration Date Visits Re quested Visits Authorized [id number] Closed 1 1 Specialty Diagnoses / Procedures Referred By Contac t Referred To Contact Diagnoses 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) Meliza Smith, Kentrell, MD [address] [place] [address] Referral ID Status Reason Start Date Expiration Date V isits Requested Visits Authorized [id number] Pending Review 1 1 Specialty Diagnoses / Procedures Referred By Contac t Referred To Contact [facility] IMAGING Diagnoses 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) Procedures MRI BRAIN WO/W IVCON MRI BRAIN BRAIN STEM W/O W/CONTRAST MATERIAL Smita Piña PA-C [address] [place] [address] Mr Imaging Referral ID Status Reason Start Date Expiration Date Visits Requested Visits Authorized [id number] Pending Review Auto-Generat ed Referral 11/04/2021 12/04/2022 1 1 Specialty Diagnoses / Procedures Referred By Contac t Referred To Contact Diagnoses Seizure (HCC) Kentrell Abdullahi MD [address] [id number] Referral ID Status Reason Start Date Expiration Date Visits Re quested Visits Authorized [id number] Closed 1 1 Specialty Diagnoses / Procedures Referred By Contac t Referred To Contact Diagnoses Uvbw-M-kghjxd-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) Kentrell Abdullahi MD [address] [place] [address] Referral ID Status Reason Start Date Expiration Date Visits Re quested Visits Authorized [id number] Closed 1 1 Specialty Diagnoses / Procedures Referred By Contac t Referred To Contact Kentrell Abdullahi MD [address] [place] [address] Referral ID Status Reason Start Date Expiration Date Visits Re quested Visits Authorized [id number] Closed 1 1 Specialty Diagnoses / Procedures Referred By Contac t Referred To Contact INTERNAL MEDICINE Diagnoses Edhe-S-bdiepv-D-aspartate receptor (anti-NMDAR) encephalitis Procedures ESTABLISH WITH PRIMARY CARE NEW PATIENT OFFICE/OUTPATIENT [facility] 60-74 MINUTES Michael Roper MD [address] [place] [address] [address] [facility] [place] [address] Referral ID Status Reason Start Date Expiration Date Visits Requested Visits Authorized [id number] Authorized PCP Requested Referral 05/02/2022 05/02/2023 1 1 Specialty Diagnoses / Procedures Referred By Contac t Referred To Contact US IMAGING Diagnoses Pain of left lower extremity Procedures US DVT LOWER LT DUP-SCAN XTR VEINS UNILATERAL/LIMITED STUDY Michael Roper MD [address] [place] [address] Us Imaging Referral ID Status Reason Start Date Expiration Date Visits Requested Visits Authorized [id number] Authorized Auto-Generat ed Referral 05/02/2022 06/01/2023 1 1 Specialty Diagnoses / Procedures Referred By Contac t Referred To Contact Orthopedics Diagnoses Pain of left lower extremity Procedures CONSULT PANEL TO ORTHOPAEDICS OFFICE/OUTPATIENT [facility] 60-74 MINUTES Michael Roper MD [address] [place] [address] Referral ID Status Reason Start Date Expiration Date Visits Requested Visits Authorized [id number] Authorized PCP Requested Referral 05/02/2022 05/02/2023 1 1 Specialty Diagnoses / Procedures Referred By Contac t Referred To Contact XR IMAGING Diagnoses Pain of left lower extremity Procedures XR FEMUR GENERAL 2V AP/LAT LEFT RADIOLOGIC EXAMINATION FEMUR MINIMUM 2 VIEWS Michael Roper MD [address] [place] [address] Xr Imaging Referral ID Status Reason Start Date Expiration Date Visits Requested Visits Authorized [id number] Authorized Auto-Generat ed Referral 05/02/2022 06/01/2023 1 1 Referral ID Status Reason Start Date Expiration Date V isits Requested Visits Authorized [id number] Pending Review 1 1 Referral ID Status Reason Start Date Expiration Date V isits Requested Visits Authorized [id number] Pending Review 1 1 Specialty Diagnoses / Procedures Referred By Contac t Referred To Contact [facility] [place] Diagnoses Pain of left lower extremity H/O: encephalitis Demyelinating disease of central nervous system (HCC) Procedures CONSULT TO [facility] OFFICE/OUTPATIENT NEW HIGH MDM 60-74 MINUTES Mello Abarca PA-C [address] [place] [address] Referral ID Status Reason Start Date Expiration Date Visits Requested Visits Authorized [id number] Authorized PCP Requested Referral 05/16/2022 05/16/2023 1 1 Specialty Diagnoses / Procedures Referred By Contac t Referred To Contact MR IMAGING Diagnoses Demyelinating disease of central nervous system (HCC) Procedures MRI LUMBAR SPINE WO IVCON MRI SPINAL CANAL LUMBAR W/O CONTRAST MATERIAL Mello Abarca PA-C [address] [place] [address] Mr Imaging Referral ID Status Reason Start Date Expiration Date Visits Requested Visits Authorized [id number] Pending Review Auto-Generat ed Referral 05/16/2022 06/15/2023 1 1 Specialty Diagnoses / Procedures Referred By Contac t Referred To Contact XR IMAGING Diagnoses Pain of left lower extremity H/O: encephalitis Demyelinating disease of central nervous system (HCC) Procedures XR LUMBAR GENERAL 3V AP/LAT/L5-S1 RADEX SPINE LUMBOSACRAL 2/3 VIEWS Mello Abarca PA-C [address] [place] [address] Xr Imaging Referral ID Status Reason Start Date Expiration Date Visits Requested Visits Authorized [id number] Pending Review Auto-Generat ed Referral 05/16/2022 06/15/2023 1 1 Specialty Diagnoses / Procedures Referred By Contac t Referred To Contact [facility] Diagnoses Pain of left lower extremity H/O: encephalitis Demyelinating disease of central nervous system (HCC) Procedures CONSULT TO PHYSICAL THERAPY PHYSICAL THERAPY EVALUATION [facility] COMPLEX 45 MINS Mello Abarca PA-C [address] [place] [address] [facility] [place] [address] [place] [id number] Referral ID Status Reason Start Date Expiration Date Visits Requested Visits Authorized [id number] Pending Review Auto-Generat ed Referral 05/16/2022 05/16/2023 1 1 Referral ID Status Reason Start Date Expiration Date V isits Requested Visits Authorized [id number] Closed Auto-Generate d Referral 05/16/2022 06/15/2023 1 1 Referral ID Status Reason Start Date Expiration Date Visits Re quested Visits Authorized [id number] Closed 1 1 Referral ID Status Reason Start Date Expiration Date Visits Re quested Visits Authorized [id number] Closed 1 1 Specialty Diagnoses / Procedures Referred By Jose Elias t Referred To Contact Diagnoses Ttki-M-bexvrh-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) Kentrell Abdullahi MD [address] [place] [address] Referral ID Status Reason Start Date Expiration Date Visits Re quested Visits Authorized [id number] Closed 1 1 Referral ID Status Reason Start Date Expiration Date Visits Re quested Visits Authorized [id number] Closed 1 1 Specialty Diagnoses / Procedures Referred By Jose Elias raines Referred To Contact Pediatric Cardiology Diagnoses Avin-Q-yhywze-D-aspartat e (NMDA) receptor encephalitis Procedures CONSULT TO [facility]/OUTPATIENT [facility] MDM 60-74 MINUTES Michael Roper MD [address] [place] [address] Referral ID Status Reason Start Date Expiration Date Visits Requested Visits Authorized [id number] Pending Review PCP Requested Referral 11/07/2022 11/07/2023 1 1 Specialty Diagnoses / Procedures Referred By Jose Elias raines Referred To Contact [facility] Diagnoses Tremor of right hand Procedures CONSULT TO INFORMATION SERVICES CONSULTANT OCCUPATIONAL THERAPY EVAL HIGH COMPLEX 60 MINS Michael Roper MD [address] [place] [address] [facility] [address] [address] Referral ID Status Reason Start Date Expiration Date Visits Requested Visits Authorized [id number] Pending Review Auto-Generat ed Referral 05/08/2023 05/07/2024 1 1 Specialty Diagnoses / Procedures Referred By Jose Elias raines Referred To Contact [facility] Diagnoses Tremor of right hand Procedures CONSULT TO PEDS INFORMATION SERVICES CONSULTANT CHR OCCUPATIONAL THERAPY EVAL LOW COMPLEX 30 MINS THERAPEUTIC EXERCISES RE, EA 15 MIN. 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) Homar Chong MD [address] [place] [address] Referral ID Status Reason Start Date Expiration Date V isits Requested Visits Authorized [id number] Authorized 05/22/2023 11/06/2023 1 1 Referral ID Status Reason Start Date Expiration Date Visits Re quested Visits Authorized [id number] Closed 1 1 Specialty Diagnoses / Procedures Referred By Jose Elias raines Referred To Contact Diagnoses 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) Kxbe-N-dotbhc-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) Kentrell Abdullahi MD [address] [place] [address] Referral ID Status Reason Start Date Expiration Date Visits Re quested Visits Authorized [id number] Closed 1 1 Specialty Diagnoses / Procedures Referred By Jose Elias raines Referred To Contact Diagnoses Anti-NMDAR encephalitis Refractory epilepsy (HCC) Kentrell Abdullahi MD [address] [place] [address] Referral ID Status Reason Start Date Expiration Date V isits Requested Visits Authorized [id number] Pending Review 1 1 Referral ID Status Reason Start Date Expiration Date Visits Re quested Visits Authorized [id number] Closed 1 1 Health Concerns Infection Onset Date Last Indicated Resolved Time COVID-19 Rule-Out 09/19/2021 09/19/2021 Infection Onset Date Last Indicated Resolved Time COVID-19 Rule-Out 11/01/2021 11/01/2021 11/02/2021 12:52 AM EDT Infection Onset Date Last Indicated Resolved Time COVID-19 Rule-Out 11/18/2021 11/18/2021 Infection Onset Date Last Indicated Resolved Time COVID-19 Rule-Out 11/18/2021 11/19/2021 11/19/2021 7:08 AM EDT COVID-19 Rule-Out 12/11/2021 12/11/2021 12/11/2021 3:42 PM EDT COVID-19 Rule-Out 12/11/2021 12/12/2021 12/12/2021 5:25 AM EDT COVID-19 Rule-Out 12/24/2021 12/24/2021 12/24/2021 5:05 PM EDT Medications Administered Section Inactive Administered Medications - up to 3 most recent administrations Medication Order MAR Action Action Date Dose Rate Site acetaminophen 650 mg tab(s) (TYLENOL) 650 mg (set by rule on 12/26/2021 8:01 AM), ORAL, ONCE, 1 dose, On Monique 07/10/22 at 0830, Administer 30 minutes prior to rituximab. Max dose is 650 mg., If ordered PRN for pain, patient/guardian may elect to receive this medication for higher pain levels INSTEAD of the opioid, if preferred: N/A Given 07/10/2022 8:21 AM EDT 650 mg diphenhydrAMINE 25 mg (BENADRYL) 25 mg, ORAL, ONCE, 1 dose, On Monique 07/10/22 at 0830, [place] 30 minutes prior to rituximab. Max dose is 50 mg. Given 07/10/2022 8:21 AM EDT 25 mg hydrocortisone sodium succinate (PF) 72.5 mg injection (Solu-CORTEF) 72.5 mg (rounded from 72.3 mg = 1 mg/kg/dose 72.3 kg Treatment plan Recorded weight), INTRAVENOUS, ONCE, 1 dose, On Monique 07/10/22 at 0830, Administer 30 minutes prior to rituximab. Max dose is 100 mg. Given 07/10/2022 8:35 AM EDT 72.5 mg riTUXimab-arrx 1,000 mg in NaCl 0.9% 1,000 mL (RIABNI) 1 mg/mL infusion 1,000 mg, INTRAVENOUS, ONCE, 1 dose, On Monique 07/10/22 at 0830, EXP: See attached infusion instructions. Total volume. Total volume. Given 07/10/2022 9:00 AM EDT 1,000 mg Inactive Administered Medications - up to 3 most recent administrations Medication Order MAR Action Action Date Dose Rate Site acetaminophen 650 mg tab(s) (TYLENOL) 650 mg (set by rule on 12/26/2021 8:01 AM), ORAL, ONCE, 1 dose, On Thu01/07/23 at 0900, Administer 30 minutes prior to rituximab. Max dose is 650 mg., If ordered PRN for pain, patient/guardian may elect to receive this medication for higher pain levels INSTEAD of the opioid, if preferred: N/A Given 01/07/2023 8:45 AM EDT 650 mg diphenhydrAMINE 25 mg (BENADRYL) 25 mg, ORAL, ONCE, 1 dose, On Thu01/07/23 at 0900, [place] 30 minutes prior to rituximab. Max dose is 50 mg. Given 01/07/2023 8:45 AM EDT 25 mg methylPREDNISolone sod succinate(PF) 125 mg injection (SOLU-Medrol) 125 mg, INTRAVENOUS, ONCE, 1 dose, On Thu01/07/23 at 0900, Administer 30 minutes prior to rituximab. Given 01/07/2023 9:02 AM EDT 125 mg riTUXimab-arrx 1,000 mg in NaCl 0.9% 1,000 mL (RIABNI) 1 mg/mL infusion 1,000 mg, INTRAVENOUS, ONCE, 1 dose, On Thu01/07/23 at 0900, EXP: Start infusion at a rate of 0.5 mg/kg/hr (max 50 mg/hr) for the first hour. In the absence of infusion toxicity, increase infusion rate by 0.5 mg/kg/hr increments (max 50 mg increase per hr) every 30 minutes, to a maximum of 400 mg/hr Total Volume. Rate/Dose Change 01/07/2023 2:45 PM EDT 369 mL/hr Rate/Dose Change 01/07/2023 2:15 PM EDT 332 mL/ hr Rate/Dose Change 01/07/2023 1:45 PM EDT 295 mL/ hr Summary Purpose Family History No Family History Records FoundNo Family History Records FoundNo Family History Records FoundNo Family History Records Found Additional Source Comments Source Comments (unrecognize d section and content) In the event this informatio n is protected by the Federal Confidentiality of Alcohol and Drug Abuse Patient Records regulations: The Federal rules restrict any use of the information to criminally investigate or prosecute any alcohol or drug abuse patient.[facility] Center[facility] the event this information is protected by the Federal Confidentiality of Alcohol and Drug Abuse Patient Records regulations: The Federal rules restrict any use of the information to criminally investigate or prosecute any alcohol or drug abuse patient.[facility] CenterIn the event this information is protected by the Federal Confidentiality of Alcohol and Drug Abuse Patient Records regulations: The Federal rules restrict any use of the information to criminally investigate or prosecute any alcohol or drug abuse patient.[facility] CenterIn the event this information is protected by the Federal Confidentiality of Alcohol and Drug Abuse Patient Records regulations: The Federal rules restrict any use of the information to criminally investigate or prosecute any alcohol or drug abuse patient.[facility] CenterIn the event this information is protected by the Federal Confidentiality of Alcohol and Drug Abuse Patient Records regulations: The Federal rules restrict any use of the information to criminally investigate or prosecute any alcohol or drug abuse patient.[facility] CenterIn the event this information is protected by the Federal Confidentiality of Alcohol and Drug Abuse Patient Records regulations: The Federal rules restrict any use of the information to criminally investigate or prosecute any alcohol or drug abuse patient.[facility] CenterIn the event this information is protected by the Federal Confidentiality of Alcohol and Drug Abuse Patient Records regulations: The Federal rules restrict any use of the information to criminally investigate or prosecute any alcohol or drug abuse patient.[facility] CenterIn the event this information is protected by the Federal Confidentiality of Alcohol and Drug Abuse Patient Records regulations: The Federal rules restrict any use of the information to criminally investigate or prosecute any alcohol or drug abuse patient.[facility] CenterIn the event this information is protected by the Federal Confidentiality of Alcohol and Drug Abuse Patient Records regulations: The Federal rules restrict any use of the information to criminally investigate or prosecute any alcohol or drug abuse patient.[facility] CenterIn the event this information is protected by the Federal Confidentiality of Alcohol and Drug Abuse Patient Records regulations: The Federal rules restrict any use of the information to criminally investigate or prosecute any alcohol or drug abuse patient.[facility] CenterIn the event this information is protected by the Federal Confidentiality of Alcohol and Drug Abuse Patient Records regulations: The Federal rules restrict any use of the information to criminally investigate or prosecute any alcohol or drug abuse patient.[facility] CenterIn the event this information is protected by the Federal Confidentiality of Alcohol and Drug Abuse Patient Records regulations: The Federal rules restrict any use of the information to criminally investigate or prosecute any alcohol or drug abuse patient.[facility] CenterIn the event this information is protected by the Federal Confidentiality of Alcohol and Drug Abuse Patient Records regulations: The Federal rules restrict any use of the information to criminally investigate or prosecute any alcohol or drug abuse patient.[facility] CenterIn the event this information is protected by the Federal Confidentiality of Alcohol and Drug Abuse Patient Records regulations: The Federal rules restrict any use of the information to criminally investigate or prosecute any alcohol or drug abuse patient.[facility] CenterIn the event this information is protected by the Federal Confidentiality of Alcohol and Drug Abuse Patient Records regulations: The Federal rules restrict any use of the information to criminally investigate or prosecute any alcohol or drug abuse patient.[facility] CenterIn the event this information is protected by the Federal Confidentiality of Alcohol and Drug Abuse Patient Records regulations: The Federal rules restrict any use of the information to criminally investigate or prosecute any alcohol or drug abuse patient.[facility] CenterIn the event this information is protected by the Federal Confidentiality of Alcohol and Drug Abuse Patient Records regulations: The Federal rules restrict any use of the information to criminally investigate or prosecute any alcohol or drug abuse patient.[facility] CenterIn the event this information is protected by the Federal Confidentiality of Alcohol and Drug Abuse Patient Records regulations: The Federal rules restrict any use of the information to criminally investigate or prosecute any alcohol or drug abuse patient.[facility] CenterIn the event this information is protected by the Federal Confidentiality of Alcohol and Drug Abuse Patient Records regulations: The Federal rules restrict any use of the information to criminally investigate or prosecute any alcohol or drug abuse patient.[facility] CenterIn the event this information is protected by the Federal Confidentiality of Alcohol and Drug Abuse Patient Records regulations: The Federal rules restrict any use of the information to criminally investigate or prosecute any alcohol or drug abuse patient.[facility] CenterIn the event this information is protected by the Federal Confidentiality of Alcohol and Drug Abuse Patient Records regulations: The Federal rules restrict any use of the information to criminally investigate or prosecute any alcohol or drug abuse patient.[facility] CenterIn the event this information is protected by the Federal Confidentiality of Alcohol and Drug Abuse Patient Records regulations: The Federal rules restrict any use of the information to criminally investigate or prosecute any alcohol or drug abuse patient.[facility] CenterIn the event this information is protected by the Federal Confidentiality of Alcohol and Drug Abuse Patient Records regulations: The Federal rules restrict any use of the information to criminally investigate or prosecute any alcohol or drug abuse patient.[facility] CenterIn the event this information is protected by the Federal Confidentiality of Alcohol and Drug Abuse Patient Records regulations: The Federal rules restrict any use of the information to criminally investigate or prosecute any alcohol or drug abuse patient.[facility] CenterIn the event this information is protected by the Federal Confidentiality of Alcohol and Drug Abuse Patient Records regulations: The Federal rules restrict any use of the information to criminally investigate or prosecute any alcohol or drug abuse patient.[facility] CenterIn the event this information is protected by the Federal Confidentiality of Alcohol and Drug Abuse Patient Records regulations: The Federal rules restrict any use of the information to criminally investigate or prosecute any alcohol or drug abuse patient.[facility] CenterIn the event this information is protected by the Federal Confidentiality of Alcohol and Drug Abuse Patient Records regulations: The Federal rules restrict any use of the information to criminally investigate or prosecute any alcohol or drug abuse patient.[facility] CenterIn the event this information is protected by the Federal Confidentiality of Alcohol and Drug Abuse Patient Records regulations: The Federal rules restrict any use of the information to criminally investigate or prosecute any alcohol or drug abuse patient.[facility] CenterIn the event this information is protected by the Federal Confidentiality of Alcohol and Drug Abuse Patient Records regulations: The Federal rules restrict any use of the information to criminally investigate or prosecute any alcohol or drug abuse patient.[facility] CenterIn the event this information is protected by the Federal Confidentiality of Alcohol and Drug Abuse Patient Records regulations: The Federal rules restrict any use of the information to criminally investigate or prosecute any alcohol or drug abuse patient.[facility] CenterIn the event this information is protected by the Federal Confidentiality of Alcohol and Drug Abuse Patient Records regulations: The Federal rules restrict any use of the information to criminally investigate or prosecute any alcohol or drug abuse patient.[facility] CenterIn the event this information is protected by the Federal Confidentiality of Alcohol and Drug Abuse Patient Records regulations: The Federal rules restrict any use of the information to criminally investigate or prosecute any alcohol or drug abuse patient.[facility] CenterIn the event this information is protected by the Federal Confidentiality of Alcohol and Drug Abuse Patient Records regulations: The Federal rules restrict any use of the information to criminally investigate or prosecute any alcohol or drug abuse patient.[facility] CenterIn the event this information is protected by the Federal Confidentiality of Alcohol and Drug Abuse Patient Records regulations: The Federal rules restrict any use of the information to criminally investigate or prosecute any alcohol or drug abuse patient.[facility] ClinicIn the event this information is protected by the Federal Confidentiality of Alcohol and Drug Abuse Patient Records regulations: The Federal rules restrict any use of the information to criminally investigate or prosecute any alcohol or drug abuse patient.[facility] CenterIn the event this information is protected by the Federal Confidentiality of Alcohol and Drug Abuse Patient Records regulations: The Federal rules restrict any use of the information to criminally investigate or prosecute any alcohol or drug abuse patient.[facility] CenterIn the event this information is protected by the Federal Confidentiality of Alcohol and Drug Abuse Patient Records regulations: The Federal rules restrict any use of the information to criminally investigate or prosecute any alcohol or drug abuse patient.[facility] CenterIn the event this information is protected by the Federal Confidentiality of Alcohol and Drug Abuse Patient Records regulations: The Federal rules restrict any use of the information to criminally investigate or prosecute any alcohol or drug abuse patient.[facility] CenterIn the event this information is protected by the Federal Confidentiality of Alcohol and Drug Abuse Patient Records regulations: The Federal rules restrict any use of the information to criminally investigate or prosecute any alcohol or drug abuse patient.[facility] CenterIn the event this information is protected by the Federal Confidentiality of Alcohol and Drug Abuse Patient Records regulations: The Federal rules restrict any use of the information to criminally investigate or prosecute any alcohol or drug abuse patient.[facility] CenterIn the event this information is protected by the Federal Confidentiality of Alcohol and Drug Abuse Patient Records regulations: The Federal rules restrict any use of the information to criminally investigate or prosecute any alcohol or drug abuse patient.[facility] CenterIn the event this information is protected by the Federal Confidentiality of Alcohol and Drug Abuse Patient Records regulations: The Federal rules restrict any use of the information to criminally investigate or prosecute any alcohol or drug abuse patient.[facility] CenterIn the event this information is protected by the Federal Confidentiality of Alcohol and Drug Abuse Patient Records regulations: The Federal rules restrict any use of the information to criminally investigate or prosecute any alcohol or drug abuse patient.[facility] CenterIn the event this information is protected by the Federal Confidentiality of Alcohol and Drug Abuse Patient Records regulations: The Federal rules restrict any use of the information to criminally investigate or prosecute any alcohol or drug abuse patient.[facility] CenterIn the event this information is protected by the Federal Confidentiality of Alcohol and Drug Abuse Patient Records regulations: The Federal rules restrict any use of the information to criminally investigate or prosecute any alcohol or drug abuse patient.[facility] CenterIn the event this information is protected by the Federal Confidentiality of Alcohol and Drug Abuse Patient Records regulations: The Federal rules restrict any use of the information to criminally investigate or prosecute any alcohol or drug abuse patient.[facility] CenterIn the event this information is protected by the Federal Confidentiality of Alcohol and Drug Abuse Patient Records regulations: The Federal rules restrict any use of the information to criminally investigate or prosecute any alcohol or drug abuse patient.[facility] CenterIn the event this information is protected by the Federal Confidentiality of Alcohol and Drug Abuse Patient Records regulations: The Federal rules restrict any use of the information to criminally investigate or prosecute any alcohol or drug abuse patient.[facility] CenterIn the event this information is protected by the Federal Confidentiality of Alcohol and Drug Abuse Patient Records regulations: The Federal rules restrict any use of the information to criminally investigate or prosecute any alcohol or drug abuse patient.[facility] CenterIn the event this information is protected by the Federal Confidentiality of Alcohol and Drug Abuse Patient Records regulations: The Federal rules restrict any use of the information to criminally investigate or prosecute any alcohol or drug abuse patient.[facility] CenterIn the event this information is protected by the Federal Confidentiality of Alcohol and Drug Abuse Patient Records regulations: The Federal rules restrict any use of the information to criminally investigate or prosecute any alcohol or drug abuse patient.[facility] CenterIn the event this information is protected by the Federal Confidentiality of Alcohol and Drug Abuse Patient Records regulations: The Federal rules restrict any use of the information to criminally investigate or prosecute any alcohol or drug abuse patient.[facility] CenterIn the event this information is protected by the Federal Confidentiality of Alcohol and Drug Abuse Patient Records regulations: The Federal rules restrict any use of the information to criminally investigate or prosecute any alcohol or drug abuse patient.[facility] CenterIn the event this information is protected by the Federal Confidentiality of Alcohol and Drug Abuse Patient Records regulations: The Federal rules restrict any use of the information to criminally investigate or prosecute any alcohol or drug abuse patient.[facility] CenterIn the event this information is protected by the Federal Confidentiality of Alcohol and Drug Abuse Patient Records regulations: The Federal rules restrict any use of the information to criminally investigate or prosecute any alcohol or drug abuse patient.[facility] CenterIn the event this information is protected by the Federal Confidentiality of Alcohol and Drug Abuse Patient Records regulations: The Federal rules restrict any use of the information to criminally investigate or prosecute any alcohol or drug abuse patient.[facility] CenterIn the event this information is protected by the Federal Confidentiality of Alcohol and Drug Abuse Patient Records regulations: The Federal rules restrict any use of the information to criminally investigate or prosecute any alcohol or drug abuse patient.[facility] CenterIn the event this information is protected by the Federal Confidentiality of Alcohol and Drug Abuse Patient Records regulations: The Federal rules restrict any use of the information to criminally investigate or prosecute any alcohol or drug abuse patient.[facility] CenterIn the event this information is protected by the Federal Confidentiality of Alcohol and Drug Abuse Patient Records regulations: The Federal rules restrict any use of the information to criminally investigate or prosecute any alcohol or drug abuse patient.[facility] CenterIn the event this information is protected by the Federal Confidentiality of Alcohol and Drug Abuse Patient Records regulations: The Federal rules restrict any use of the information to criminally investigate or prosecute any alcohol or drug abuse patient.[facility] CenterIn the event this information is protected by the Federal Confidentiality of Alcohol and Drug Abuse Patient Records regulations: The Federal rules restrict any use of the information to criminally investigate or prosecute any alcohol or drug abuse patient.[facility] CenterIn the event this information is protected by the Federal Confidentiality of Alcohol and Drug Abuse Patient Records regulations: The Federal rules restrict any use of the information to criminally investigate or prosecute any alcohol or drug abuse patient.[facility] CenterIn the event this information is protected by the Federal Confidentiality of Alcohol and Drug Abuse Patient Records regulations: The Federal rules restrict any use of the information to criminally investigate or prosecute any alcohol or drug abuse patient.[facility] CenterIn the event this information is protected by the Federal Confidentiality of Alcohol and Drug Abuse Patient Records regulations: The Federal rules restrict any use of the information to criminally investigate or prosecute any alcohol or drug abuse patient.[facility] CenterIn the event this information is protected by the Federal Confidentiality of Alcohol and Drug Abuse Patient Records regulations: The Federal rules restrict any use of the information to criminally investigate or prosecute any alcohol or drug abuse patient.[facility] CenterIn the event this information is protected by the Federal Confidentiality of Alcohol and Drug Abuse Patient Records regulations: The Federal rules restrict any use of the information to criminally investigate or prosecute any alcohol or drug abuse patient.[facility] CenterIn the event this information is protected by the Federal Confidentiality of Alcohol and Drug Abuse Patient Records regulations: The Federal rules restrict any use of the information to criminally investigate or prosecute any alcohol or drug abuse patient.[facility] CenterIn the event this information is protected by the Federal Confidentiality of Alcohol and Drug Abuse Patient Records regulations: The Federal rules restrict any use of the information to criminally investigate or prosecute any alcohol or drug abuse patient.[facility] CenterIn the event this information is protected by the Federal Confidentiality of Alcohol and Drug Abuse Patient Records regulations: The Federal rules restrict any use of the information to criminally investigate or prosecute any alcohol or drug abuse patient.[facility] CenterIn the event this information is protected by the Federal Confidentiality of Alcohol and Drug Abuse Patient Records regulations: The Federal rules restrict any use of the information to criminally investigate or prosecute any alcohol or drug abuse patient.[facility] CenterIn the event this information is protected by the Federal Confidentiality of Alcohol and Drug Abuse Patient Records regulations: The Federal rules restrict any use of the information to criminally investigate or prosecute any alcohol or drug abuse patient.[facility] CenterIn the event this information is protected by the Federal Confidentiality of Alcohol and Drug Abuse Patient Records regulations: The Federal rules restrict any use of the information to criminally investigate or prosecute any alcohol or drug abuse patient.[facility] CenterIn the event this information is protected by the Federal Confidentiality of Alcohol and Drug Abuse Patient Records regulations: The Federal rules restrict any use of the information to criminally investigate or prosecute any alcohol or drug abuse patient.[facility] CenterIn the event this information is protected by the Federal Confidentiality of Alcohol and Drug Abuse Patient Records regulations: The Federal rules restrict any use of the information to criminally investigate or prosecute any alcohol or drug abuse patient.[facility] CenterIn the event this information is protected by the Federal Confidentiality of Alcohol and Drug Abuse Patient Records regulations: The Federal rules restrict any use of the information to criminally investigate or prosecute any alcohol or drug abuse patient.[facility] CenterIn the event this information is protected by the Federal Confidentiality of Alcohol and Drug Abuse Patient Records regulations: The Federal rules restrict any use of the information to criminally investigate or prosecute any alcohol or drug abuse patient.[facility] CenterIn the event this information is protected by the Federal Confidentiality of Alcohol and Drug Abuse Patient Records regulations: The Federal rules restrict any use of the information to criminally investigate or prosecute any alcohol or drug abuse patient.[facility] CenterIn the event this information is protected by the Federal Confidentiality of Alcohol and Drug Abuse Patient Records regulations: The Federal rules restrict any use of the information to criminally investigate or prosecute any alcohol or drug abuse patient.[facility] CenterIn the event this information is protected by the Federal Confidentiality of Alcohol and Drug Abuse Patient Records regulations: The Federal rules restrict any use of the information to criminally investigate or prosecute any alcohol or drug abuse patient.[facility] CenterIn the event this information is protected by the Federal Confidentiality of Alcohol and Drug Abuse Patient Records regulations: The Federal rules restrict any use of the information to criminally investigate or prosecute any alcohol or drug abuse patient.[facility] CenterIn the event this information is protected by the Federal Confidentiality of Alcohol and Drug Abuse Patient Records regulations: The Federal rules restrict any use of the information to criminally investigate or prosecute any alcohol or drug abuse patient.[facility] CenterIn the event this information is protected by the Federal Confidentiality of Alcohol and Drug Abuse Patient Records regulations: The Federal rules restrict any use of the information to criminally investigate or prosecute any alcohol or drug abuse patient.[facility] CenterIn the event this information is protected by the Federal Confidentiality of Alcohol and Drug Abuse Patient Records regulations: The Federal rules restrict any use of the information to criminally investigate or prosecute any alcohol or drug abuse patient.[facility] CenterIn the event this information is protected by the Federal Confidentiality of Alcohol and Drug Abuse Patient Records regulations: The Federal rules restrict any use of the information to criminally investigate or prosecute any alcohol or drug abuse patient.[facility] ClinicIn the event this information is protected by the Federal Confidentiality of Alcohol and Drug Abuse Patient Records regulations: The Federal rules restrict any use of the information to criminally investigate or prosecute any alcohol or drug abuse patient.[facility] CenterIn the event this information is protected by the Federal Confidentiality of Alcohol and Drug Abuse Patient Records regulations: The Federal rules restrict any use of the information to criminally investigate or prosecute any alcohol or drug abuse patient.[facility] CenterIn the event this information is protected by the Federal Confidentiality of Alcohol and Drug Abuse Patient Records regulations: The Federal rules restrict any use of the information to criminally investigate or prosecute any alcohol or drug abuse patient.[facility] CenterIn the event this information is protected by the Federal Confidentiality of Alcohol and Drug Abuse Patient Records regulations: The Federal rules restrict any use of the information to criminally investigate or prosecute any alcohol or drug abuse patient.[facility] CenterIn the event this information is protected by the Federal Confidentiality of Alcohol and Drug Abuse Patient Records regulations: The Federal rules restrict any use of the information to criminally investigate or prosecute any alcohol or drug abuse patient.[facility] CenterIn the event this information is protected by the Federal Confidentiality of Alcohol and Drug Abuse Patient Records regulations: The Federal rules restrict any use of the information to criminally investigate or prosecute any alcohol or drug abuse patient.[facility] CenterIn the event this information is protected by the Federal Confidentiality of Alcohol and Drug Abuse Patient Records regulations: The Federal rules restrict any use of the information to criminally investigate or prosecute any alcohol or drug abuse patient.[facility] CenterIn the event this information is protected by the Federal Confidentiality of Alcohol and Drug Abuse Patient Records regulations: The Federal rules restrict any use of the information to criminally investigate or prosecute any alcohol or drug abuse patient.[facility] CenterIn the event this information is protected by the Federal Confidentiality of Alcohol and Drug Abuse Patient Records regulations: The Federal rules restrict any use of the information to criminally investigate or prosecute any alcohol or drug abuse patient.[facility] CenterIn the event this information is protected by the Federal Confidentiality of Alcohol and Drug Abuse Patient Records regulations: The Federal rules restrict any use of the information to criminally investigate or prosecute any alcohol or drug abuse patient.[facility] CenterIn the event this information is protected by the Federal Confidentiality of Alcohol and Drug Abuse Patient Records regulations: The Federal rules restrict any use of the information to criminally investigate or prosecute any alcohol or drug abuse patient.[facility] CenterIn the event this information is protected by the Federal Confidentiality of Alcohol and Drug Abuse Patient Records regulations: The Federal rules restrict any use of the information to criminally investigate or prosecute any alcohol or drug abuse patient.[facility] CenterIn the event this information is protected by the Federal Confidentiality of Alcohol and Drug Abuse Patient Records regulations: The Federal rules restrict any use of the information to criminally investigate or prosecute any alcohol or drug abuse patient.[facility] CenterIn the event this information is protected by the Federal Confidentiality of Alcohol and Drug Abuse Patient Records regulations: The Federal rules restrict any use of the information to criminally investigate or prosecute any alcohol or drug abuse patient.[facility] CenterIn the event this information is protected by the Federal Confidentiality of Alcohol and Drug Abuse Patient Records regulations: The Federal rules restrict any use of the information to criminally investigate or prosecute any alcohol or drug abuse patient.[facility] CenterIn the event this information is protected by the Federal Confidentiality of Alcohol and Drug Abuse Patient Records regulations: The Federal rules restrict any use of the information to criminally investigate or prosecute any alcohol or drug abuse patient.[facility] CenterIn the event this information is protected by the Federal Confidentiality of Alcohol and Drug Abuse Patient Records regulations: The Federal rules restrict any use of the information to criminally investigate or prosecute any alcohol or drug abuse patient.[facility] CenterIn the event this information is protected by the Federal Confidentiality of Alcohol and Drug Abuse Patient Records regulations: The Federal rules restrict any use of the information to criminally investigate or prosecute any alcohol or drug abuse patient.[facility] CenterIn the event this information is protected by the Federal Confidentiality of Alcohol and Drug Abuse Patient Records regulations: The Federal rules restrict any use of the information to criminally investigate or prosecute any alcohol or drug abuse patient.[facility] CenterIn the event this information is protected by the Federal Confidentiality of Alcohol and Drug Abuse Patient Records regulations: The Federal rules restrict any use of the information to criminally investigate or prosecute any alcohol or drug abuse patient.[facility] CenterIn the event this information is protected by the Federal Confidentiality of Alcohol and Drug Abuse Patient Records regulations: The Federal rules restrict any use of the information to criminally investigate or prosecute any alcohol or drug abuse patient.[facility] CenterIn the event this information is protected by the Federal Confidentiality of Alcohol and Drug Abuse Patient Records regulations: The Federal rules restrict any use of the information to criminally investigate or prosecute any alcohol or drug abuse patient.[facility] CenterIn the event this information is protected by the Federal Confidentiality of Alcohol and Drug Abuse Patient Records regulations: The Federal rules restrict any use of the information to criminally investigate or prosecute any alcohol or drug abuse patient.[facility] CenterIn the event this information is protected by the Federal Confidentiality of Alcohol and Drug Abuse Patient Records regulations: The Federal rules restrict any use of the information to criminally investigate or prosecute any alcohol or drug abuse patient.[facility] CenterIn the event this information is protected by the Federal Confidentiality of Alcohol and Drug Abuse Patient Records regulations: The Federal rules restrict any use of the information to criminally investigate or prosecute any alcohol or drug abuse patient.[facility] CenterIn the event this information is protected by the Federal Confidentiality of Alcohol and Drug Abuse Patient Records regulations: The Federal rules restrict any use of the information to criminally investigate or prosecute any alcohol or drug abuse patient.[facility] Reason for Visit (unrecogniz ed section and content) Reason Comments Seizures Reason Onset Date Comments Refill Request 09/18/2021 Reason Onset Date Comments Refill Request 09/19/2021 Reason Comments Follow Up Phone Call Post Discharge F/U attempt made. No answer. Reason Comments Treatment Planning Reason Comments Seizures Reason Comments Patient Update POA Reason Comments Established Patient Reason Comments Medication Authorization Xcopri Reason Comments Results Vitamin D Reason Comments Medication Question new medication Reason Comments Medication Problem Xcopri - Change in B ehavior - Anger Issues Reason Onset Date Comments Refill Request 11/01/2021 Reason Comments Follow Up Phone Call Post Discharge F/U attempt made. No answer. Reason Comments Patient Update Reason Comments Medication Problem AEDs - Patient Sleep ing Most Of The Day Reason Comments Encephalitis Reason Comments General Reason Comments Other Call from mom federico last social work help to arrange rehab Reason Comments Follow Up Phone Call Reason Comments Patient Update I left a voicimail t o mom about the new medication that we have discussed in the past, we are going to start risperdal 0.5 mg at night for 3 days and then go to 1 mg. I m seeing them later on this week T Deja Orders I put a refill for r isperdal 1 mg for 30 days T Deja Reason Onset Date Comments Refill Request 12/09/2021 Reason Comments Medication Problem Reason Comments Forms SAP Reason Comments Letter Letter for school Reason Comments General OT Reason Comments Outpatient Dvt Tx Follow Up Phone Call Post Discharge F/U - attempt made. No answer. Reason Comments Medication Problem Treatment Planning Reason Comments Other Med issue Reason Comments Treatment Planning medications Reason Comments Opened In Error Reason Comments Insurance Authorization Rituximab infusi on (2nd loading dose) Reason Comments Letter Guardianship letter from Court of [facility] Probate [facility] Reason Comments Established Patient Reason Comments Medication Concern Vitamin D Reason Onset Date Comments Refill Request 03/26/2022 Reason Comments Orders labs Reason Comments Established Patient Reason Comments Outside Lab Results [facility] Reason Comments Follow Up Reason Comments New Pain Specialty Diagnoses / Procedures Referred By Contac t Referred To Contact Orthopedics Diagnoses Pain of left lower extremity Procedures CONSULT PANEL TO ORTHOPAEDICS OFFICE/OUTPATIENT NEW HIGH MDM 60-74 MINUTES Michael Roper MD [address] [place] [address] Referral ID Status Reason Start Date Expiration Date V isits Requested Visits Authorized [id number] Closed PCP Requested Referral 05/02/2022 05/02/2023 1 1 Reason Comments Radio Gen A21 Specialty Diagnoses / Procedures Referred By Contac t Referred To Contact XR IMAGING Diagnoses Pain of left lower extremity Procedures XR FEMUR GENERAL 2V AP/LAT LEFT RADIOLOGIC EXAMINATION FEMUR MINIMUM 2 VIEWS Michael Roper MD [address] [place] [address] Xr Imaging Referral ID Status Reason Start Date Expiration Date V isits Requested Visits Authorized [id number] Closed Auto-Generate d Referral 05/02/2022 06/01/2023 1 1 Reason Comments Forms [facility] [address] Reason Comments Orders Reason Comments medication concern topiramte, depakote Reason Comments Patient Update Prior Auth Rituximab (PENDING) Reason Comments Results Reason Comments Infusion Specialty Diagnoses / Procedures Referred By Contac t Referred To Contact Diagnoses Anti-NMDA receptor encephalitis Procedures INJ RUXIENCE, 10 MG INJECTION, RITUXIMAB-ARRX, BIOSIMILAR, (RIABNI), 10 MG Michael Roper MD [address] [place] [address] Peds Infusion Main [address] [place] [address] Referral ID Status Reason Start Date Expiration Date V isits Requested Visits Authorized [id number] Authorized 12/26/2021 08/24/2022 99 99 Reason Comments Radiology MRI Specialty Diagnoses / Procedures Referred By Contac t Referred To Contact MR IMAGING Diagnoses Demyelinating disease of central nervous system (HCC) Procedures MRI LUMBAR SPINE WO IVCON MRI SPINAL CANAL LUMBAR W/O CONTRAST MATERIAL Mello Abarca PA-C [address] [place] [address] Mr Imaging Referral ID Status Reason Start Date Expiration Date V isits Requested Visits Authorized [id number] Closed Auto-Generate d Referral 05/16/2022 06/15/2023 1 1 Reason Comments Letter Excuse From School Reason Onset Date Comments Refill Request 10/22/2022 Reason Onset Date Comments Refill Request 11/03/2022 Reason Comments Established Patient Reason Comments Established Patient Reason Comments Insurance Authorization topiramte Reason Comments Consult Specialty Diagnoses / Procedures Referred By Contac t Referred To Contact Pediatric Cardiology Diagnoses Teyl-I-awsdrz-D-aspartat e (NMDA) receptor encephalitis Procedures CONSULT TO PEDS CARDIOLOGY OFFICE/OUTPATIENT NEW HIGH MDM 60-74 MINUTES Michael Roper MD [address] [place] [address] Referral ID Status Reason Start Date Expiration Date Visits Requested Visits Authorized [id number] Pending Review PCP Requested Referral 11/07/2022 11/07/2023 1 1 Reason Comments Forms sap Referral ID Status Reason Start Date Expiration Date V isits Requested Visits Authorized [id number] Authorized 12/26/2021 11/10/2023 99 99 Reason Comments Medication Problem Qudexy 100 mg is req uested because [facility] unable to supply Qudexy 200 mg per mom; child has 4 pills left Reason Comments Seizures New patient Reason Comments General Treatment for Kidney Stone Reason Comments Letter Reason Comments Cystoscopy-1 stent extraction Reason Onset Date Comments Refill Request 08/04/2023 Reason Comments Insurance Authorization Reason Comments Forms FMLA Referral ID Status Reason Start Date Expiration Date V isits Requested Visits Authorized [id number] Authorized 12/26/2021 11/10/2023 5 5 Reason Comments Follow Up Reason Comments Ambulatory Social Work Community Resourc es Reason Comments Ambulatory Social Work Questions regardi ng FMLA forms Reason Comments Patient Question Care Teams (unrecognized sec tion and content) Char Belt Operator Relationship Specialty Start Date End Date ElyVirgilio sparksacema [address] [place] [id number] PCP - General Internal Medicine/Pediatrics 01/06/12 Jitendra Ely [address] [place] [phone] NI Referring Team 08/16/20 Solis Melly [address] [place] [address] NI Referring Team Pediatrics 12/17/20 Ely, Melly [address] [place] [address] NI Referring Team Pediatrics 04/01/21 Char Belt Operator Relationship Specialty Start Date End Date Ely Melly [address] [place] [phone] PCP - General Internal Medicine/Pediatrics 01/06/12 Jitendra Ely [address] [place] [address] NI Referring Team 08/16/20 Melly Ely [address] [place] [address] NI Referring Team Pediatrics 12/17/20 Melly Ely [address] [place] [address] NI Referring Team Pediatrics 04/01/21 Char Belt Operator Relationship Specialty Start Date End Date Melly Ely [address] [place] [address] PCP - General Internal Medicine/Pediatrics 01/06/[address] [place] [address] NI Referring Team 08/16/20 Melly Ely [address] [place] [address] NI Referring Team Pediatrics 12/17/20 Melly Ely [address] [place] [address] NI Referring Team Pediatrics 04/01/21 Char Belt Operator Relationship Specialty Start Date End Date Melly Ely [address] [place] [address] PCP - General Internal Medicine/Pediatrics 01/06/12 Jitendra Ely [address] [place] [address] NI Referring Team 08/16/20 Steve Elyma [address] [place] [address] NI Referring Team Pediatrics 12/17/20 Melly Ely [address] [place] [address] NI Referring Team Pediatrics 04/01/21 Char Belt Operator Relationship Specialty Start Date End Date Melly Ely [address] [place] [address] PCP - General Internal Medicine/Pediatrics 01/06/12 Ely Jitendra [address] [place] [address] NI Referring Team 08/16/20 Melly Ely [address] [place] [address] NI Referring Team Pediatrics 12/17/20 Melly Ely [address] [place] [address] NI Referring Team Pediatrics 04/01/21 Char Belt Operator Relationship Specialty Start Date End Date Melly Ely [address] [place] [address] PCP - General Internal Medicine/Pediatrics 01/06/12 Jitendra Ely [address] [place] [address] NI Referring Team 08/16/20 Melly Ely [address] [place] [address] NI Referring Team Pediatrics 12/17/20 Steve Elyma [address] [place] [address] NI Referring Team Pediatrics 04/01/21 Char Belt Operator Relationship Specialty Start Date End Date Melly Ely [address] [place] [address] PCP - General Internal Medicine/Pediatrics 01/06/12 Jitendra Ely [address] [place] [address] NI Referring Team 08/16/20 Melly Ely [address] [place] [address] NI Referring Team Pediatrics 12/17/20 Melly Ely [address] [place] [address] NI Referring Team Pediatrics 04/01/21 Char Belt Operator Relationship Specialty Start Date End Date Melly Ely [address] [place] [address] PCP - General Internal Medicine/Pediatrics 01/06/12 Jitendra Ely [address] [place] [address] NI Referring Team 08/16/20 Melly Ely [address] [place] [address] NI Referring Team Pediatrics 12/17/20 Melly Ely [address] [place] [address] NI Referring Team Pediatrics 04/01/21 Char Belt Operator Relationship Specialty Start Date End Date Melly Ely [address] [place] [address] PCP - General Internal Medicine/Pediatrics 01/06/12 Jitendra Ely [address] [place] [address] NI Referring Team 08/16/20 Steve Elyma [address] [place] [address] NI Referring Team Pediatrics 12/17/20 Melly Ely [address] [place] [address] NI Referring Team Pediatrics 04/01/21 Char Belt Operator Relationship Specialty Start Date End Date Melly Ely [address] [place] [address] PCP - General Internal Medicine/Pediatrics 01/06/12 Jitendra Ely [address] [place] [address] NI Referring Team 08/16/20 Melly Ely [address] [place] [address] NI Referring Team Pediatrics 12/17/20 Melly Ely [address] [place] [address] NI Referring Team Pediatrics 04/01/21 Char Belt Operator Relationship Specialty Start Date End Date Melly Ely [address] [place] [address] PCP - General Internal Medicine/Pediatrics 01/06/12 Jitendra Ely [address] [place] [address] NI Referring Team 08/16/20 Steve Elyma [address] [place] [address] NI Referring Team Pediatrics 12/17/20 Steve Elyma [address] [place] [address] NI Referring Team Pediatrics 04/01/21 Char Belt Operator Relationship Specialty Start Date End Date Melly Ely [address] [place] [address] PCP - General Internal Medicine/Pediatrics 01/06/12 Jitendra Ely [address] [place] [address] NI Referring Team 08/16/20 Melly Ely [address] [place] [address] NI Referring Team Pediatrics 12/17/20 Melly Ely [address] [place] [address] NI Referring Team Pediatrics 04/01/21 Char Belt Operator Relationship Specialty Start Date End Date Melly Ely [address] [place] [address] PCP - General Internal Medicine/Pediatrics 01/06/12 Jitendra Ely [address] [place] [address] NI Referring Team 08/16/20 Melly Ely [address] [place] [address] NI Referring Team Pediatrics 12/17/20 Steve Elyma [address] [place] [address] NI Referring Team Pediatrics 04/01/21 Char Belt Operator Relationship Specialty Start Date End Date Melly Ely [address] [place] [address] PCP - General Internal Medicine/Pediatrics 01/06/[address] [place] [address] NI Referring Team 08/16/20 Melly Ely [address] [place] [address] NI Referring Team Pediatrics 12/17/20 Melly Ely [address] [place] [address] NI Referring Team Pediatrics 04/01/21 Char Belt Operator Relationship Specialty Start Date End Date Melly Ely [address] [place] [address] PCP - General Internal Medicine/Pediatrics 01/06/12 Jitendra Ely [address] [place] [address] NI Referring Team 08/16/20 Melly Ely [address] [place] [address] NI Referring Team Pediatrics 12/17/20 Melly Ely [address] [place] [address] NI Referring Team Pediatrics 04/01/21 Char Belt Operator Relationship Specialty Start Date End Date Melly Ely [address] [place] [address] PCP - General Internal Medicine/Pediatrics 01/06/12 ElyJitendra sparks [address] [place] [address] NI Referring Team 08/16/20 Setve Elyma [address] [place] [address] NI Referring Team Pediatrics 12/17/20 Melly Ely [address] [place] [address] NI Referring Team Pediatrics 04/01/21 Char Belt Operator Relationship Specialty Start Date End Date Melly Ely [address] [place] [address] PCP - General Internal Medicine/Pediatrics 01/06/12 Solis Jitendra [address] [place] [address] NI Referring Team 08/16/20 Melly Ely [address] [place] [address] NI Referring Team Pediatrics 12/17/20 Melly Ely [address] [place] [address] NI Referring Team Pediatrics 04/01/21 Char Belt Operator Relationship Specialty Start Date End Date Melly [address] [place] [address] PCP - General Internal Medicine/Pediatrics 01/06/12 Jitendra Ely [address] [place] [address] NI Referring Team 08/16/20 Melly Ely [address] [place] [address] NI Referring Team Pediatrics 12/17/20 Steve Elyma [address] [place] [address] NI Referring Team Pediatrics 04/01/21 Char Belt Operator Relationship Specialty Start Date End Date Melly Ely [address] [place] [address] PCP - General Internal Medicine/Pediatrics 01/06/12 Jitendra Ely [address] [place] [address] NI Referring Team 08/16/20 Melly Ely [address] [place] [address] NI Referring Team Pediatrics 12/17/20 Melly Ely [address] [place] [address] NI Referring Team Pediatrics 04/01/21 Char Belt Operator Relationship Specialty Start Date End Date Melly Ely [address] [place] [address] PCP - General Internal Medicine/Pediatrics 01/06/12 Jitendra Ely [address] [place] [address] NI Referring Team 08/16/20 Melly Ely [address] [place] [address] NI Referring Team Pediatrics 12/17/20 Melly Ely [address] [place] [address] NI Referring Team Pediatrics 04/01/21 Char Belt Operator Relationship Specialty Start Date End Date Melly Ely [address] [place] [address] PCP - General Internal Medicine/Pediatrics 01/06/12 Jitendra Ely [address] [place] [address] NI Referring Team 08/16/20 Melly Ely [address] [place] [address] NI Referring Team Pediatrics 12/17/20 Melly Ely [address] [place] [address] NI Referring Team Pediatrics 04/01/21 Char Belt Operator Relationship Specialty Start Date End Date Melly [address] [place] [address] PCP - General Internal Medicine/Pediatrics 01/06/12 Jitendra Ely [address] [place] [address] NI Referring Team 08/16/20 Melly Ely [address] [place] [address] NI Referring Team Pediatrics 12/17/20 Melly Ely [address] [place] [address] NI Referring Team Pediatrics 04/01/21 Char Belt Operator Relationship Specialty Start Date End Date Melly Ely [address] [place] [address] PCP - General Internal Medicine/Pediatrics 01/06/12 Jitendra Ely [address] [place] [address] NI Referring Team 08/16/20 Melly Ely [address] [place] [address] NI Referring Team Pediatrics 12/17/20 Melly Ely [address] [place] [address] NI Referring Team Pediatrics 04/01/21 Char Belt Operator Relationship Specialty Start Date End Date Melly Ely [address] [place] [address] PCP - General Internal Medicine/Pediatrics 01/06/12 Jitendra Ely [address] [place] [address] NI Referring Team 08/16/20 Melly Ely [address] [place] [address] NI Referring Team Pediatrics 12/17/20 Melly Ely [address] [place] [address] NI Referring Team Pediatrics 04/01/21 Char Belt Operator Relationship Specialty Start Date End Date Melly [address] [place] [address] PCP - General Internal Medicine/Pediatrics 01/06/12 Ely Jitendra [address] [place] [address] NI Referring Team 08/16/20 Melly Ely [address] [place] [address] NI Referring Team Pediatrics 12/17/20 Melly Ely [address] [place] [address] NI Referring Team Pediatrics 04/01/21 Char Belt Operator Relationship Specialty Start Date End Date Melly Ely [address] [place] [address] PCP - General Internal Medicine/Pediatrics 01/06/12 Jitendra Ely [address] [place] [address] NI Referring Team 08/16/20 Melly Ely [address] [place] [address] NI Referring Team Pediatrics 12/17/20 Melly Ely [address] [place] [address] NI Referring Team Pediatrics 04/01/21 Char Belt Operator Relationship Specialty Start Date End Date Melly Ely [address] [place] [address] PCP - General Internal Medicine/Pediatrics 01/06/12 Jitendra Ely [address] [place] [address] NI Referring Team 08/16/20 Melly Ely [address] [place] [address] NI Referring Team Pediatrics 12/17/20 Melly Ely [address] [place] [address] NI Referring Team Pediatrics 04/01/21 Char Belt Operator Relationship Specialty Start Date End Date Amanda Cuellar [address] [place] [address] PCP - General Family Medicine 02/26/22 Char Belt Operator Relationship Specialty Start Date End Date Amanda Cuellar [address] [place] [address] PCP - General Family Medicine 02/26/22 Char Belt Operator Relationship Specialty Start Date End Date Kathe Cuellarty [address] [place] [address] PCP - General Family Medicine 02/26/22 Char Belt Operator Relationship Specialty Start Date End Date Rumschlag, Amanda [address] [place] [address] PCP - General Family Medicine 02/26/22 Char Belt Operator Relationship Specialty Start Date End Date Rumschlag, Amanda [address] [place] [address] PCP - General Family Medicine 02/26/22 Char Belt Operator Relationship Specialty Start Date End Date Rumschlag, Amanda [address] [place] [address] PCP - General Family Medicine 02/26/22 Char Belt Operator Relationship Specialty Start Date End Date Rumschlag, Amanda [address] [place] [address] PCP - General Family Medicine 02/26/22 Char Belt Operator Relationship Specialty Start Date End Date Rumschlag, Amanda [address] [place] [address] PCP - General Family Medicine 02/26/22 Char Belt Operator Relationship Specialty Start Date End Date Rumschlag, Amanda [address] [place] [address] PCP - General Family Medicine 02/26/22 Char Belt Operator Relationship Specialty Start Date End Date Rumschlag, Amanda [address] [place] [address] PCP - General Family Medicine 02/26/22 Char Belt Operator Relationship Specialty Start Date End Date Rumschlag, Amanda [address] [place] [address] PCP - General Family Medicine 02/26/22 Char Belt Operator Relationship Specialty Start Date End Date Rumschlag, Amanda [address] [place] [address] PCP - General Family Medicine 02/26/22 Char Belt Operator Relationship Specialty Start Date End Date Kathe Cuellarty [address] [place] [address] PCP - General Family Medicine 02/26/22 Char Belt Operator Relationship Specialty Start Date End Date RumKathe albertoty [address] [place] [address] PCP - General Family Medicine 02/26/22 Char Belt Operator Relationship Specialty Start Date End Date Kathe Cuellarty [address] [place] [address] PCP - General Family Medicine 02/26/22 Char Belt Operator Relationship Specialty Start Date End Date Kathe Cuellarty [address] [place] [address] PCP - General Family Medicine 02/26/22 Char Belt Operator Relationship Specialty Start Date End Date Kathe Cuellarty [address] [place] [address] PCP - General Family Medicine 02/26/22 Char Belt Operator Relationship Specialty Start Date End Date Kathe Cuellarty [address] [place] [address] PCP - General Family Medicine 02/26/22 Char Belt Operator Relationship Specialty Start Date End Date RumschlaKathe navaty [address] [place] [address] PCP - General Family Medicine 02/26/22 Char Belt Operator Relationship Specialty Start Date End Date RumschlaKathe navaty [address] [place] [address] PCP - General Family Medicine 02/26/22 Char Belt Operator Relationship Specialty Start Date End Date Rumschlag, Amanda [address] [place] [address] PCP - General Family Medicine 02/26/22 Char Belt Operator Relationship Specialty Start Date End Date Rumschlag, Amanda [address] [place] [address] PCP - General Family Medicine 02/26/22 Char Belt Operator Relationship Specialty Start Date End Date Rumschlag, Amanda [address] [place] [address] PCP - General Family Medicine 02/26/22 Char Belt Operator Relationship Specialty Start Date End Date Rumschlag, Amanda [address] [place] [address] PCP - General Family Medicine 02/26/22 Char Belt Operator Relationship Specialty Start Date End Date Rumschlag, Amanda [address] [place] [address] PCP - General Family Medicine 02/26/22 Char Belt Operator Relationship Specialty Start Date End Date Rumschlag, Amanda [address] [place] [address] PCP - General Family Medicine 02/26/22 Char Belt Operator Relationship Specialty Start Date End Date Rumschlag, Amanda [address] [place] [address] PCP - General Family Medicine 02/26/22 Char Belt Operator Relationship Specialty Start Date End Date Rumschlag, Amanda [address] [place] [address] PCP - General Family Medicine 02/26/22 Char Belt Operator Relationship Specialty Start Date End Date Rumschlag, Amanda [address] [place] [address] PCP - General Family Medicine 02/26/22 Char Belt Operator Relationship Specialty Start Date End Date Rumschlag, Amanda [address] [place] [address] PCP - General Family Medicine 02/26/22 Char Belt Operator Relationship Specialty Start Date End Date Rumschlag, Amanda [address] [place] [address] PCP - General Family Medicine 02/26/22 Char Belt Operator Relationship Specialty Start Date End Date Rumschlag, Amanda [address] [place] [address] PCP - General Family Medicine 02/26/22 Char Belt Operator Relationship Specialty Start Date End Date Rumschlag, Amanda, DO [address] [place] [address] PCP - General Family Medicine 02/26/22 Char Belt Operator Relationship Specialty Start Date End Date Rumschlag, Amanda, DO [address] [place] [address] PCP - General Family Medicine 02/26/22 Char Belt Operator Relationship Specialty Start Date End Date Rumschlag, Amanda, DO [address] [place] [address] PCP - General Family Medicine 02/26/22 Char Belt Operator Relationship Specialty Start Date End Date Rumschlag, Amanda, DO [address] [place] [address] PCP - General Family Medicine 02/26/22 Char Belt Operator Relationship Specialty Start Date End Date Rumschlag, Amanda, DO [address] [place] [address] PCP - General Family Medicine 02/26/22 Char Belt Operator Relationship Specialty Start Date End Date Rumschlag, Amanda, DO [address] [place] [address] PCP - General Family Medicine 02/26/22 Char Belt Operator Relationship Specialty Start Date End Date Rumschlag, Amanda, DO [address] [place] [address] PCP - General Family Medicine 02/26/22 Char Belt Operator Relationship Specialty Start Date End Date Rumschlag, Amanda, DO [address] [place] [address] PCP - General Family Medicine 02/26/22 Char Belt Operator Relationship Specialty Start Date End Date Rumschlag, Amanda, DO [address] [place] [address] PCP - General Family Medicine 02/26/22 Char Belt Operator Relationship Specialty Start Date End Date Rumschlag, Amanda, DO [address] [place] [address] PCP - General Family Medicine 02/26/22 Char Belt Operator Relationship Specialty Start Date End Date Rumschlag, Amanda, DO [address] [place] [address] PCP - General Family Medicine 02/26/22 Char Belt Operator Relationship Specialty Start Date End Date Rumschlag, Amanda, DO [address] [place] [address] PCP - General Family Medicine 02/26/22 Char Belt Operator Relationship Specialty Start Date End Date Rumschlag, Amanda, DO [address] [place] [address] PCP - General [facility] Medicine 02/26/22 Char Belt Operator Relationship Specialty Start Date End Date Rumschlag, Amanda, DO [address] [place] [address] PCP - General [facility] Medicine 02/26/22 Char Belt Operator Relationship Specialty Start Date End Date Rumschlag, Amanda, DO [address] [place] [address] PCP - [facility] Medicine 02/26/22 Char Belt Operator Relationship Specialty Start Date End Date Rumschlag, Amanda, DO [address] [place] [address] PCP - General Family Medicine 02/26/22 Zohaib Serrano LSW Aircraft Maintenance Engineer 11/11/23 Char Belt Operator Relationship Specialty Start Date End Date Rumschlag, Amanda, DO [address] [place] [address] PCP - General Family Medicine 02/26/22 (unrecognized sect ion and content) No Status Records FoundNo Status Records FoundNo Status Records FoundNo Status Records Found INFORMATION SOURCE (unrecogn ized section and content) DATE CREATED AUTHOR 06/29/2023 [facility] DATE CREATED AUTHOR AUTHOR'S ORGANIZ ATION 08/12/2023 [facility] DATE CREATED AUTHOR AUTHOR'S ORGANIZ ATION 11/16/2023 [facility] DATE CREATED AUTHOR AUTHOR'S ORGANIZ ATION 11/19/2023 [facility] Inactive Administered Medications - up to 3 most recent administrations Administered Medications (un recognized section and content) Medication Order MAR Action Action Date Dose Rate Site acetaminophen 650 mg tab(s) (TYLENOL) 650 mg (set by rule on 12/26/2021 8:01 AM), ORAL, ONCE, 1 dose, On Thu08/12/23 at 0800, Administer 30 minutes prior to rituximab. Max dose is 650 mg., If ordered PRN for pain, patient/guardian may elect to receive this medication for higher pain levels INSTEAD of the opioid, if preferred: N/A Given 08/12/2023 8:22 AM EDT 650 mg diphenhydrAMINE 25 mg capsule (BENADRYL) 25 mg, ORAL, ONCE, 1 dose, On Thu08/12/23 at 0800, [place] 30 minutes prior to rituximab. Max dose is 50 mg. Given 08/12/2023 8:22 AM EDT 25 mg methylPREDNISolone sod succinate(PF) 125 mg injection (SOLU-Medrol) 125 mg, INTRAVENOUS, ONCE, 1 dose, On Thu08/12/23 at 0800, Administer 30 minutes prior to rituximab. Given 08/12/2023 8:37 AM EDT 125 mg riTUXimab-arrx 1,000 mg in NaCl 0.9% 1,000 mL (RIABNI) 1,000 mg, INTRAVENOUS, ONCE, 1 dose, On Thu08/12/23 at 0830, EXP: Start infusion at a rate of 0.5 mg/kg/hr (max 50 mg/hr) for the first hour. In the absence of infusion toxicity, increase infusion rate by 0.5 mg/kg/hr increments (max 50 mg increase per hr) every 30 minutes, to a maximum of 400 mg/hr Total Volume. Rate/Dose Change 08/12/2023 2:15 PM EDT 385 mL/hr Rate/Dose Change 08/12/2023 1:45 PM EDT 347 mL/ hr Rate/Dose Change 08/12/2023 1:15 PM EDT 308 mL/ hr FOR RECORDS PERTAINING TO PATIENTS WHO ARE OR HAVE BEEN ENROLLED IN A CHEMICAL DEPENDENCY/SUBSTANCEABUSE PROGRAM, SOME INFORMATION MAY BE OMITTED. This clinical summary was aggregated from multiple sources. Caution should be exercised in using it in the provision of clinical care. This summary normalizes information from multiple sources, and as a consequence, information in this document may materially change the coding, format and clinical context of patient data. In addition, data may be omitted in some cases. CLINICAL DECISIONS SHOULD BE BASED ON THE PRIMARY CLINICAL RECORDS. [facility]. provides no warranty or guarantee of the accuracy or completeness of information in this document.
--- NOTE | 2023-11-21 09:54 | US_ITS ---
The [address] [address] Patient Name: SARA GREGG MRN: [id number] date: 2005 Sex: M Assigned Patient Location: Current Patient Location: Accession/Order Number: [id number] Exam Date: 11/21/2023 09:54 Report Date: 11/23/2023 13:36 At the request of: NON-STAFF PHYSICIAN Procedure: US renal bladder EXAMINATION: US renal bladder HISTORY: BILATERAL KIDNEY STONES COMPARISON: CT abdomen pelvis 07/07/2023 TECHNIQUE: Ultrasound examination was performed of the kidneys and urinary bladder. FINDINGS: RIGHT KIDNEY: No evidence of pelvocaliectasis, mass, or calculi. Normal renal cortical parenchymal echogenicity. Color Doppler demonstrates blood flow within the kidney. Kidney: 13.3 x 6.7 x 6.4 cm LEFT KIDNEY: No evidence of pelvocaliectasis, mass, or calculi. Normal renal cortical parenchymal echogenicity. Color Doppler demonstrates blood flow within the kidney. Kidney: 12.7 x 5.4 x 5.4 cm BLADDER: No visible wall thickening, mass, or calculi. Post void residual: 5 mL URETERAL JETS: Visualized bilaterally. US/US renal bladder IMPRESSION: 1. No visible urinary tract calculi. 2. No abnormal dilation of the renal pelvis or calyces bilaterally. 3. Unremarkable urinary bladder. Electronically authenticated by: KOSTAS VILLAGOMEZ Date: 11/23/2023 13:36
== END 2023-11-21 09:46 | disposition home or self-care (01) ==
LOC: US 09:45
PROVIDERS: PCP Family Medicine
DX: N20.0 Calculus of kidney (principal)
CPT/HCPCS: 76770